=== PATIENT | male | born 1980 | race African-American/Black ===

== ENCOUNTER 2017-02-18 01:18 | Observation (INO) | payer OTHER ==
[2017-02-18 01:40] VITALS: BMI 24.9
--- NOTE | 2017-02-18 01:47 | PDOC ---
History of Present Illness - General Chief Complaint: Bone Injury Stated Complaint: INJURY Time Seen by Provider: 02/18/17 01:39 Exam Limitations: Clinical Condition - History of Present Illness Initial Comments: 02/18/17 02:13 This is a 36 yo male [facility] resident with PMH haemophilus meningitis, obstructive hydrocephalus, congenital quadriplegia, seizure disorder, mental retardation and ideopathic scoliosis who presents today with swelling and deformity to right thigh. [facility] states the patient was receiving incontinence care when it was noticed that his right knee was swollen, erythematous and warm to touch. [facility] denies trauma or falls. Xrays performed at [facility] which showed "acute oblique distal femur fracture" per read of Dr. Kwame Andino outpatient radiologist. He was then transferred here for further evaluation. Past History - Past Medical History Allergies/Adverse Reactions: Allergies Allergy/AdvReac Type Severity Reaction Status Date / Time No Known Allergies Allergy Verified 02/18/17 01:33 Home Medications: Ambulatory Orders Albuterol 0.083% Nebulizer Michelle [Ventolin 0.083% Nebulizer Soln -] 1 neb NEB Q6H PRN 04/25/16 Amlodipine Besylate [Norvasc -] 5 mg GT AM 04/25/16 Clobazam [Onfi -] 10 mg GT BID 04/25/16 Diazepam Rectal Gel [Diastat *Rectal Gel*] 10 mg RC PRN PRN 04/25/16 Diazepam [Valium] 2 mg GT BID 04/25/16 Electrolyte,Oral [Pedialyte -] 60 ml GT BID 04/25/16 Ferrous Sulfate Liquid [Feosol Liquid] 5 ml GT HS 04/25/16 Fexofenadine HCl [Bonnie Allergy] 60 mg GT BID 04/25/16 Fluticasone Prop 0.05% Nasal [Flonase -] 2 spray NS DAILY 04/25/16 Folic Acid - 1 mg GT DAILY 04/25/16 Hydrochlorothiazide 25 mg GT DAILY 04/25/16 Ipratropium 0.02% Nebulizer [Atrovent] 1 neb NEB TID 04/25/16 Lactose-Reduced Food/Fiber [Jevity 1.2 Yo Liquid] 830 ml GT ASDIR 04/25/16 Lamotrigine 75 mg GT 0600 04/25/16 Lamotrigine 100 mg PO 0600,1600,2000 04/25/16 Lamotrigine [Lamictal] 50 mg PO 1600,199904/25/16 Levetiracetam [Keppra] 750 mg GT BID 04/25/16 Methylcellulose (with Sugar) [Citrucel Powder] 1,000 mg GT HS 04/25/16 Metoprolol Tartrate 75 mg GT 1400,199904/25/16 Minocycline HCl 100 mg GT DAILY 04/25/16 Nystatin Powder [Nystop Topical Powder -] 15 gm TP BID 04/25/16 Ranitidine HCl [Heartburn Relief 150] 150 mg GT 0600 04/25/16 Sennosides [Senna -] 1 tab GT BID 04/25/16 Sodium Chloride [Saline Nasal Mist] 2 spr NS 1800 04/25/16 HTN: Yes Seizures: Yes - Surgical History GI Surgery: Yes (peg) Orthopedic Surgery: Yes (metal devices in right hip) - Immunization History Immunization Up to Date: Yes - Psycho/Social/Smoking Cessation Hx Anxiety: No Suicidal Ideation: No Smoking History: Never smoked Have you smoked in the past 12 months: No Information on smoking cessation initiated: No Hx Alcohol Use: No Drug/Substance Use Hx: No Substance Use Type: None Hx Substance Use Treatment: No Review of Systems - Review of Systems Able to Perform ROS?: No (profound MR) *Physical Exam - Vital Signs Last Vital Signs Temp Pulse Resp BP Pulse Ox 97.6 F 62 18 148/94 93 L 02/18/17 01:33 02/18/17 01:33 02/18/17 01:33 02/18/17 01:33 02/18/17 01:33 - Physical Exam General Appearance: No: Apparent Distress HEENT: positive: MICHELLE, Symmetrical, TMs Normal Neck: positive: Trachea midline. negative: Tender Respiratory/Chest: positive: Lungs Clear, Normal Breath Sounds. negative: Respiratory Distress, Accessory Muscle Use Cardiovascular: positive: Regular Rhythm, Regular Rate, S1, S2. negative: Edema , JVD, Murmur Vascular Pulses: Dorsalis-Pedis (R): 2+, Doralis-Pedis (L): 2+ Gastrointestinal/Abdominal: positive: Normal Bowel Sounds, Soft. negative: Tender Musculoskeletal: positive: Normal Inspection. negative: CVA Tenderness Extremity: positive: Normal Capillary Refill, Erythema (right knee extending into right thigh) Heart Score/ECG Review - ECG Intrepretation Rhythm: Regular Rhythm - [place]: Normal - ECG Impressions Normal ECG: Yes ED Treatment Course - LABORATORY CBC & Chemistry Diagram: 02/18/17 04:00 02/18/17 04:00 - RADIOLOGY Radiology Studies Ordered: Category Date Time Status FEMUR-RIGHT [RAD] Stat Radiology 02/18/17 01:45 Ordered KNEE 2 POS-RIGHT [RAD] Stat Radiology 02/18/17 01:45 Ordered Medical Decision Making - Medical Decision Making 02/18/17 02:22 A/P: This is a 36 yo male [facility] resident with PMH haemophilus meningitis, obstructive hydrocephalus, congenital quadriplegia, seizure disorder, mental retardation, right hip repair and ideopathic scoliosis who presents today with swelling and deformity to right thigh. [facility] states the patient was receiving incontinence care when it was noticed that his right knee was swollen , erythematous and warm to touch. [facility] denies trauma or falls. Xrays performed at [facility] which showed "acute oblique distal femur fracture" per read of Dr. Kwame Andino outpatient radiologist. He was then transferred here for further evaluation. Swelling and erythema present to right knee and immediately superior to right knee. Pt is afebrile and VS are stable. Dx- femur fracture vs septic knee - xrays of right femur and knee - CBC, CMP, coags, t&s - EKG - admit 02/18/17 03:27 Distal femur fx noted on xray. -will admit 02/18/17 04:55 Case d/w Dr. Gardner. Will admit to hospitalist for obs. *DC/Admit/Observation/Transfer Diagnosis at time of Disposition: Fracture of right femur Qualifiers: Encounter type: initial encounter Femur location: shaft Fracture type: closed Fracture morphology: oblique Fracture alignment: nondisplaced Qualified Code(s) : S72.334A - Nondisplaced oblique fracture of shaft of right femur, initial encounter for closed fracture - Discharge Dispostion Condition at time of disposition: Guarded Admit: Yes Decision to Admit order Date/Time: 02/18/17 04:57
--- NOTE | 2017-02-18 02:06 | PDOC ---
*Physical Exam - Vital Signs Last Vital Signs Temp Pulse Resp BP Pulse Ox 97.6 F 62 18 148/94 93 L 02/18/17 01:33 02/18/17 01:33 02/18/17 01:33 02/18/17 01:33 02/18/17 01:33 02/21/17 19:44 ED Treatment Course - LABORATORY CBC & Chemistry Diagram: 02/18/17 04:00 02/18/17 09:00 Medical Decision Making - Medical Decision Making 02/18/17 02:06 agree with care from TYLER Nelson *DC/Admit/Observation/Transfer Diagnosis at time of Disposition: Femur fracture, right - Discharge Dispostion Disposition: LONGTERM FACILITY Condition at time of disposition: Improved
[2017-02-18] MEDS ORDERED: morphine CARPU-JECT 2 MG/1 ML DISP.SYRIN IM ONE (04:07)
[2017-02-18 04:24] LABS: BASOPHIL 0.2 % (0-2.0); EOSINOPHIL 2.9 % (0-4.5); MCH 29.2 pg (25.7-33.7); MCHC 33.5 g/dl (32.0-35.9); MEAN CELL VOLUME 87.2 fl (80-96); MEAN PLT VOLUME 8.5 fl (7.5-11.1); NEUTROPHILS 67.2 % (42.8-82.8); PLATELET COUNT 168 K/MM3 (134-434); RDW 14.3 % (11.9-15.9); WHITE BLOOD COUNT 6.5 K/mm3 (4.0-10.0)
[2017-02-18 04:39] LABS: INR 1.08 (0.82-1.09); PROTHROMBIN TIME (PATIENT) 11.9 SEC (9.98-11.88)
[2017-02-18 04:50] LABS: ALBUMIN 3.3 g/dl (3.4-5.0); ANION GAP 9 (8-16); BILIRUBIN,TOTAL 0.6 mg/dL (0.2-1.0); CALCIUM 9.6 mg/dL (8.5-10.1); CO2 33 mmol/L (21-32); CREATININE 0.4 mg/dL (0.7-1.3); GLUCOSE,RANDOM 75 mg/dL (74-106); SGOT/AST 13 U/L (15-37); SGPT/ALT 42 U/L (12-78); TOT PROT 7.4 g/dl (6.4-8.2)
[2017-02-18 04:51] LABS: ALK PHOS 160 U/L (45-117)
[2017-02-18] MEDS ORDERED: morphine CARPU-JECT 4 MG/1 ML DISP.SYRIN ONE (04:53)
--- NOTE | 2017-02-18 05:09 | HP ---
CHIEF COMPLAINT: femur injury PCP: Dr. Huang HISTORY OF PRESENT ILLNESS: 36yo M [facility] resident with PMH of congenital quadriplegia, epilepsy, mental retardation presents with swelling, erythema and warmth to Right thigh. Deformity was discovered during routine care. [facility] ([facility]) performed xrays revealing acute oblique distal femur fx. Pt was brought to ER for further evaluation. [facility] denies trauma or falls. ER course was notable for: (1) morphine sulfate 4mg IM for pain (2) Knee xray, Femur xray, Hip/pelvis xray, CXR all pending (3) Levetiracetam level pending Recent Travel: none PAST MEDICAL HISTORY: congenital quadriplegia mental retardation epilepsy obstructive hydrocephalus haemophilus menigitis idiopathic scoliosis HTN PAST SURGICAL HISTORY: PEG placement Right Hip ORIF Social History: Smoking: none Alcohol: none Drugs: none Family History: non-contributory Allergies No Known Allergies Allergy (Verified 02/18/17 01:33) HOME MEDICATIONS: Home Medications Medication Instructions Recorded Albuterol 0.083% Nebulizer Michelle 1 neb NEB Q6H PRN 04/25/16 [Ventolin 0.083% Nebulizer Soln -] Amlodipine Besylate [Norvasc -] 5 mg GT AM 04/25/16 Clobazam [Onfi -] 10 mg GT BID 04/25/16 Diazepam Rectal Gel [Diastat 10 mg RC PRN PRN 04/25/16 *Rectal Gel*] Diazepam [Valium] 2 mg GT BID 04/25/16 Electrolyte,Oral [Pedialyte -] 60 ml GT BID 04/25/16 Ferrous Sulfate Liquid [Feosol 5 ml GT HS 04/25/16 Liquid] Fexofenadine HCl [Bonnie Allergy] 60 mg GT BID 04/25/16 Fluticasone Prop 0.05% Nasal 2 spray NS DAILY 04/25/16 [Flonase -] Folic Acid - 1 mg GT DAILY 04/25/16 Hydrochlorothiazide 25 mg GT DAILY 04/25/16 Ipratropium 0.02% Nebulizer 1 neb NEB TID 04/25/16 [Atrovent] Lactose-Reduced Food/Fiber [Jevity 830 ml GT ASDIR 04/25/16 1.2 Yo Liquid] Lamotrigine 75 mg GT 0600 04/25/16 Lamotrigine 100 mg PO 0600,1600,199904/25/16 Lamotrigine [Lamictal] 50 mg PO 1600,199904/25/16 Levetiracetam [Keppra] 750 mg GT BID 04/25/16 Methylcellulose (with Sugar) 1,000 mg GT HS 04/25/16 [Citrucel Powder] Metoprolol Tartrate 75 mg GT 1400,199904/25/16 Minocycline HCl 100 mg GT DAILY 04/25/16 Nystatin Powder [Nystop Topical 15 gm TP BID 04/25/16 Powder -] Ranitidine HCl [Heartburn Relief 150 mg GT 0600 04/25/16 150] Sennosides [Senna -] 1 tab GT BID 04/25/16 Sodium Chloride [Saline Nasal Mist] 2 spr NS 1800 04/25/16 REVIEW OF SYSTEMS Could not be assessed 2/2 profound mental retardation. PHYSICAL EXAMINATION Vital Signs - 24 hr 02/18/17 01:33 Temperature 97.6 F Pulse Rate 62 Respiratory 18 Rate Blood Pressure 148/94 O2 Sat by Pulse 93 L Oximetry (%) GENERAL: Awake, alert, in mild distress. HEAD: Normal with no signs of trauma. EYES: Pupils equal, round and reactive to light, extraocular movements intact, sclera anicteric, conjunctiva clear. No lid lag. EARS, NOSE, THROAT: Moist mucous membranes. NECK: Trachea midline, no JVD. LUNGS: Breath sounds equal, clear to auscultation bilaterally. No accessory muscle use. HEART: Regular rate and rhythm, normal S1 and S2 without murmur, rub or gallop. MUSCULOSKELETAL: Contracted in all 4 limbs. Right distal thigh swollen, erythematous, warm. PSYCHIATRIC: Good eye contact. SKIN: Warm, dry, normal turgor, no rashes or lesions noted. Laboratory Results - last 24 hr 02/18/17 02/18/17 02/18/17 04:00 04:00 04:00 WBC 6.5 RBC 4.86 Hgb 14.2 Hct 42.4 MCV 87.2 MCH 29.2 MCHC 33.5 RDW 14.3 Plt Count 168 MPV 8.5 Neutrophils % 67.2 Lymphocytes % 15.6 D Monocytes % 14.1 H Eosinophils % 2.9 Basophils % 0.2 INR 1.08 Sodium 133 L Potassium 3.5 Chloride 91 L Carbon Dioxide 33 H D Anion Gap 9 BUN 10 D Creatinine 0.4 L Creat Clearance w eGFR > 60 Random Glucose 75 D Calcium 9.6 Total Bilirubin 0.6 D AST 13 L D ALT 42 D Alkaline Phosphatase 160 H D Total Protein 7.4 Albumin 3.3 L IMAGING: Hip/Pelvis X-Ray, Chest X-Ray, Knee X-Ray, Femur X-Ray all pending. ASSESSMENT/PLAN: 36yo M [facility] resident with PMH of congenital quadriplegia, mental retardation, seizure disorder admitted to med-surg observation for non- displaced Right distal femur fx. 1) Right distal femur fx - Consult Orthopedic Surgery - Morphine sulfate 2mg IM q4h for pain 2) Epilepsy - cont. home med Clobazam, Diazepam, Keppra, Lamictal - f/u Levetiracetam level 3) HTN - cont. home med Norvasc, Metoprolol, HCTZ 4) FEN - Fluids: D5NS IVF hydration - Electrolytes: hyponatremia, hypochloremia --> cont. to monitor when tube feeding is resumed - Nutrition: hold tube feeding for possible surgical intervention 5) Prophylaxis - Heparin 5,000U SQ q8h for DVT prophylaxis Visit type - Emergency Visit Emergency Visit: Yes Care time: The patient presented to the Emergency Department on the above date and was hospitalized for further evaluation of their emergent condition. - New Patient This patient is new to me today: Yes Date on this admission: 02/18/17 - Critical Care Critical Care patient: No
[2017-02-18] MEDS ORDERED: diazePAM ACUDIAL 5-7.5-10 MG 1 EACH KIT RC PRN (05:14)
[2017-02-18] MEDS ORDERED: ALBUTEROL SO4 0.083% IH SOL 2.5 MG/3 ML VIAL.NEB. NEB PRN (05:14)
[2017-02-18] MEDS ORDERED: morphine CARPU-JECT 4 MG/1 ML DISP.SYRIN IVPUSH PRN (05:15)
--- NOTE | 2017-02-18 05:34 | PN ---
Teaching Attending Note Name of Resident: Yesika Watson ATTENDING PHYSICIAN STATEMENT I saw and evaluated the patient. I reviewed the resident's note and discussed the case with the resident. I agree with the resident's findings and plan as documented. SUBJECTIVE: 36 yo quadriplegic gentleman transferred to the ED from outside facility after it was discovered that he has non-displaced right hip fracture. Resides in senior living/[facility] where it was discovered he had new swelling to his right leg during routine care. Facility denies trauma or falls or other sites of possible fracture. OBJECTIVE: - Vital Signs Temp: 97.6F BP: 148/94 HR: 62 RR: 18 spO2: 93% on RA - Physical Examination General: Alert, seemingly at baseline mental status in mild distress presumably 2/2 pain RLE HEENT: No signs of trauma or lesions of the oropharynx Neck: No JVD or Thyromegaly CV: RRR, S1 and S2 Pulm: CTA anteriorly Abd: Soft, BS + ; No HSM Ext: Edema and discomfort with palpation of RLE ; Contracted upper extremities - Imaging Rt Hip Film reviewed ( Oblique fracture, nondisplaced femur ) CXR Pending - Labs BUN/Cr: 10/0.4 K+ 3.5 ; Na+ 133 H/H: 14.2/42.4 ASSESSMENT Non-displaced Right Hip Fracture - Unclear etiology at this time Hyponatremia 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 Pain management with IV Morphine prn Continue PO meds via G-Tube ; Hold all feeds pending orthopedic eval as above PT/OT evaluation to follow above D5NS IVF hydration ; Monitor and maintain optimal lytes Further imaging deferred to consulting physician Heparin SC DVT Chemoprophylaxis F/U pending imaging to further assess bony structures DISPOSITION Anticipating inpatient admission as patient will likely require >48h inpatient monitoring and management for pain and repair of hip fracture. PT/OT evaluation and SW involvement Update Vaccinations
[2017-02-18] MEDS ORDERED: lamoTRIgine 25 MG TABLET NR SCH ×3 (06:00→16:00)
[2017-02-18] MEDS ORDERED: RANITIDINE HCL 150 MG/10 ML UNIT-DOSE CUP GT SCH (06:15)
[2017-02-18] MEDS ORDERED: morphine CARPU-JECT 4 MG/1 ML DISP.SYRIN IM PRN (06:17)
[2017-02-18] MEDS ORDERED: DEXTROSE 5%-NORMAL SALINE 1,000 ML IV SCH (06:45)
[2017-02-18] MEDS ORDERED: IPRATROPIUM BR 0.02% 0.5 MG/2.5 ML VIAL.NEB. NEB ONE (06:45)
[2017-02-18] MEDS ORDERED: lamoTRIgine 25 MG TABLET ONE (06:45)
[2017-02-18] MEDS ORDERED: RANITIDINE HCL 150 MG TABLET (FP) ONE (06:45)
[2017-02-18] MEDS ORDERED: amLODIPine BESYLATE 5 MG TABLET (FP) GT SCH (07:00)
[2017-02-18] MEDS: lamoTRIgine 100 MG TABLET (FP) GT SCH ×2 (07:05→16:38)
[2017-02-18] MEDS: IPRATROPIUM BR 0.02% 0.5 MG/2.5 ML VIAL.NEB. NEB SCH ×2 (07:05→14:54)
[2017-02-18] MEDS ORDERED: morphine CARPU-JECT 2 MG/1 ML DISP.SYRIN IM PRN (07:18)
[2017-02-18] MEDS ORDERED: oxyCODONE HCL 5 MG TABLET GT PRN (07:30)
--- NOTE | 2017-02-18 08:37 | CON.ORTH ---
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 (mental retardation congenital quadraplegia, seizure disorder, obstructive hydrocephalus) Cardio/Vascular: Yes: HTN Additional Medical History: Mental Retardation, quadraplegia - Alcohol/Substance Use Hx Alcohol Use: No - Smoking History Smoking history: Never smoked Have you smoked in the past 12 months: No - Social History Usual Living Arrangement: Long Term ADL: Support Services History of Recent Travel: No Home Medications - Allergies Allergies/Adverse Reactions: Allergies Allergy/AdvReac Type Severity Reaction Status Date / Time No Known Allergies Allergy Verified 02/18/17 01:33 - Home Medications Home Medications: Ambulatory Orders Albuterol 0.083% Nebulizer Michelle [Ventolin 0.083% Nebulizer Soln -] 1 neb NEB Q6H PRN 04/25/16 Amlodipine Besylate [Norvasc -] 5 mg GT AM 04/25/16 Clobazam [Onfi -] 10 mg GT BID 04/25/16 Diazepam Rectal Gel [Diastat *Rectal Gel*] 10 mg RC PRN PRN 04/25/16 Diazepam [Valium] 2 mg GT BID 04/25/16 Electrolyte,Oral [Pedialyte -] 60 ml GT BID 04/25/16 Ferrous Sulfate Liquid [Feosol Liquid] 5 ml GT HS 04/25/16 Fexofenadine HCl [Obnnie Allergy] 60 mg GT BID 04/25/16 Fluticasone Prop 0.05% Nasal [Flonase -] 2 spray NS DAILY 04/25/16 Folic Acid - 1 mg GT DAILY 04/25/16 Hydrochlorothiazide 25 mg GT DAILY 04/25/16 Ipratropium 0.02% Nebulizer [Atrovent] 1 neb NEB TID 04/25/16 Lactose-Reduced Food/Fiber [Jevity 1.2 Yo Liquid] 830 ml GT ASDIR 04/25/16 Lamotrigine 75 mg GT 0600 04/25/16 Lamotrigine 100 mg PO 0600,1600,199904/25/16 Lamotrigine [Lamictal] 50 mg PO 1600,199904/25/16 Levetiracetam [Keppra] 750 mg GT BID 04/25/16 Methylcellulose (with Sugar) [Citrucel Powder] 1,000 mg GT HS 04/25/16 Metoprolol Tartrate 75 mg GT 1400,2000 04/25/16 Minocycline HCl 100 mg GT DAILY 04/25/16 Nystatin Powder [Nystop Topical Powder -] 15 gm TP BID 04/25/16 Ranitidine HCl [Heartburn Relief 150] 150 mg GT 0600 04/25/16 Sennosides [Senna -] 1 tab GT BID 04/25/16 Sodium Chloride [Saline Nasal Mist] 2 spr NS 1800 04/25/16 Calcium Carbonate/Vitamin D3 [Oystercal-D 500 mg-400 Unit Tb] 1 each PO HS 02/18 Calcium Carbonate/Vitamin D3 [Oystercal-D 500 mg-400 Unit Tb] 2 each PO DAILY Magnesium Hydroxide [Milk of Magnesia -] 15 ml GT BID 02/18/17 Multivitamins [Tab-A-Vit -] 1 tab GT DAILY 02/18/17 Physical Exam for Ortho Vital Signs: Vital Signs Temperature 97.8 F 02/18/17 08:13 Pulse Rate 72 02/18/17 08:13 Respiratory Rate 18 02/18/17 08:13 Blood Pressure 144/90 02/18/17 08:13 O2 Sat by Pulse Oximetry (%) 99 02/18/17 07:10 Labs: INR, PTT INR 1.08 (0.82-1.09) 02/18/17 04:00 - Lower Extremity Knee: Yes: Right, Assymetrical, Pain, Swelling, Tenderness Imaging - Results X-ray: Report Reviewed, Image Reviewed Assessment/Plan 6 yo male half-way resident with PMH haemophilus meningitis, obstructive hydrocephalus, congenital quadriplegia, seizure disorder, mental retardation and ideopathic scoliosis who presents today with swelling and deformity to right thigh. jail states the patient was receiving incontinence care when it was noticed that his right knee was swollen, erythematous and warm to touch. jail denies trauma or falls. Xrays performed at [facility] which showed "acute oblique distal femur fracture" per read of Dr. Kwame Andino outpatient radiologist. He was then transferred here for further evaluation. a/p- right minimally displaced distal femur fx No surgery required knee immobilizer was placed please check for skin breakdown nothing further to do will follow d/w Dr. Vega
--- NOTE | 2017-02-18 09:23 | EKG ---
Test Reason : Blood Pressure : / mmHG Vent. Rate : 063 BPM Atrial Rate : 063 BPM P-R Int : 176 ms QRS Dur : 104 ms QT Int : 422 ms P-R-T Axes : 059 022 029 degrees QTc Int : 431 ms NORMAL SINUS RHYTHM NORMAL ECG MARKED T WAVE ABNORMALITY, CONSIDER ANTERIOR ISCHEMIA Confirmed by JEFF OSULLIVAN MD ([id number]) on 02/18/2017 9:22:36 AM Referred By: Confirmed By:JEFF OSULLIVAN MD
[2017-02-18 09:48] LABS: ANION GAP 7 (8-16); CALCIUM 9.5 mg/dL (8.5-10.1); CO2 35 mmol/L (21-32); CREATININE 0.4 mg/dL (0.7-1.3); GLUCOSE,RANDOM 71 mg/dL (74-106)
[2017-02-18] MEDS ORDERED: FLUTICASONE PROP 0.05% 16 GM NASAL SPRAY NS SCH (10:00)
[2017-02-18] MEDS ORDERED: CHOLECALCIFEROL (VIT D3 ORAL SOLUTION) 400 UNIT/1 ML DROPS GT SCH ×2 (10:00→22:00)
[2017-02-18] MEDS ORDERED: FOLIC ACID 1 MG TABLET (FP) GT SCH (10:00)
[2017-02-18] MEDS ORDERED: cloBAZam 10 MG TABLET PO SCH ×2 (10:00→11:00)
[2017-02-18] MEDS ORDERED: PATIENT'S OWN MEDICATION (NON-FORMULARY) (Calcium Carbonate/Vitamin D3 [Oystercal-D 500 Mg GT SCH ×2 (10:00→22:00)
[2017-02-18] MEDS ORDERED: MULTIVIT-MINERALS 236 ML ML GT SCH (10:00)
[2017-02-18] MEDS ORDERED: FERROUS SO4 300 MG/5 ML ORAL SOLN UNIT DOSE CUPS GT SCH (10:00)
[2017-02-18] MEDS ORDERED: HYDROCHLOROTHIAZIDE 25 MG TABLET (FP) GT SCH (10:00)
[2017-02-18] MEDS ORDERED: LORATADINE 10 MG TABLET GT SCH (10:00)
[2017-02-18] MEDS ORDERED: diazePAM 2 MG TABLET GT SCH ×2 (10:00→18:00)
[2017-02-18] MEDS ORDERED: CALCIUM CARBONATE SUSPENSION - 500 MG/5 ML ML GT SCH ×2 (10:00→22:00)
[2017-02-18] MEDS ORDERED: NYSTATIN POWDER 100,000 UNITS/GM - 15 GM TOPICAL POWDER TP SCH (10:00)
[2017-02-18] MEDS ORDERED: SENNOSIDES 8.8 MG/5 ML BULK BOTTLE GT SCH (10:00)
[2017-02-18] MEDS ORDERED: MAGNESIUM HYDROX 2400MG/30ML ORAL SUSPENSION 30 ML CUP GT SCH (10:00)
[2017-02-18] MEDS ORDERED: PATIENT'S OWN MEDICATION (NON-FORMULARY) (Minocycline Hcl [Minocycline Hcl] 100 MG) GT SCH (10:00)
[2017-02-18] MEDS ORDERED: levETIRAcetam 500 MG/5 ML ORAL SOLUTION (UNIT-DOSE CUPS) GT SCH ×2 (10:00→11:15)
[2017-02-18] MEDS ORDERED: PT OWN MED DRAWER 7, Y5N ONE ×4 (10:09→16:18)
--- NOTE | 2017-02-18 13:37 | PN ---
Teaching Attending Note Name of Resident: Juan R Xiong ATTENDING PHYSICIAN STATEMENT I saw and evaluated the patient. I reviewed the resident's note and discussed the case with the resident. I agree with the resident's findings and plan as documented. SUBJECTIVE: no events over night . not able to obtain a ROS OBJECTIVE: NAD , comfortable and smiling CV : RRR Lungs : CTAB ABd : PEG tube in . no erythema or erosions around it . No TTP , ND , NL BS Ext: R lower thigh with erythema and edema , No TTP . no edema on legs . DP 2+ b/l ASSESSMENT AND PLAN: 36 y/o man with h/o quadriplegia , HTn, Seizure and other medical problems who presented From [place] due to R lower thigh swelling and was found to have R distal femur Fx 1- R distal femur Fx: will investigate further form [facility] if he had any fall in past few days . ? recent seizure - sen by ortho . NO sx - pt has no pain. - immobilizer - need Vit D3 checked ( not available , done as outpt ) 2- h/o Seizure . Meds confirmed with [facility] records . - cont home meds 3- HTN: cont home meds 4- Dispo: will dc back to facility as he has no pain and no surgical intervention to be done.
[2017-02-18] MEDS ORDERED: METOPROLOL TARTRATE 25 MG TABLET (FP) GT SCH (14:00)
[2017-02-18] MEDS ORDERED: HEPARIN NA (PORCINE) 5,000 UNITS/ML 1ML VIAL SQ SCH (14:00)
--- NOTE | 2017-02-18 15:24 | DS ---
Physical Exam: SUBJECTIVE: Patient seen and examined this AM. Smiling, in no acute distress. Nonverbal. OBJECTIVE: Vital Signs Period Temp Pulse Resp BP Sys/Osullivan Pulse Ox Last 24 Hr 97.8 F-97.8 F 65-72 18-20 136-144/82-90 99-99 PHYSICAL EXAM GENERAL: Awake, alert, in mild distress. HEAD: Normal with no signs of trauma. EYES: Pupils equal, round and reactive to light, extraocular movements intact, sclera anicteric, conjunctiva clear. No lid lag. EARS, NOSE, THROAT: Moist mucous membranes. NECK: Trachea midline, no JVD. LUNGS: Breath sounds equal, clear to auscultation bilaterally. No accessory muscle use. HEART: Regular rate and rhythm, normal S1 and S2 without murmur, rub or gallop. MUSCULOSKELETAL: Contracted in all 4 limbs. Right distal thigh tight, swollen. PSYCHIATRIC: Good eye contact. SKIN: Warm, dry, normal turgor, no rashes or lesions noted. LABS Laboratory Results - last 24 hr 02/18/17 09:00 Sodium 136 Potassium 3.6 Chloride 94 L Carbon Dioxide 35 H Anion Gap 7 L BUN 9 Creatinine 0.4 L Random Glucose 71 L Calcium 9.5 HOSPITAL COURSE: Date of Admission:02/18/17 Date of Discharge: 02/18/17 Mr. Dilan Castellano is a 36yo M senior care resident with PMH of congenital quadriplegia, mental retardation, seizure disorder who came into the ER because he was found to have a swollen R leg. X-Rays in the hospital noted a R distal femur fracture. 1) Right distal femur fx - The patient remained very comfortable in the hospital. We consulted Consult Orthopedic Surgery who saw the patient and decided no surgical intervention is necessary. They gave the patient an immobilizer and will follow up with the patient in two weeks. 2) Epilepsy - We reconciled and resume all of the patients home seizure medications. There were no seizures in the hospital For all other chronic problems, we continued all the patient's home medications. The patient is accepted back at [facility], and will be discharged today. Minutes to complete discharge: 55 Discharge Summary Reason For Visit: FEMUR FRACTURE (RIGHT) Current Active Problems Femur fracture, right (Acute) Condition: Improved - Instructions Diet, Activity, Other Instructions: - Continue to take all of your medications - Keep the immobilizer on your leg - Follow with the Orthopedic Surgeon - If you have any serious symptoms please return to the ER - He needs 25 OH Vit D , and TSH checked. Referrals: Chepe Vega MD [Staff Physician] - 2 Weeks Disposition: CUSTODIAL FACILITY - Home Medications Comprehensive Discharge Medication List: Ambulatory Orders Albuterol 0.083% Nebulizer Michelle [Ventolin 0.083% Nebulizer Soln -] 1 neb NEB Q6H PRN 04/25/16 Amlodipine Besylate [Norvasc -] 5 mg GT AM 04/25/16 Clobazam [Onfi -] 10 mg GT BID 04/25/16 Diazepam Rectal Gel [Diastat Rectal Gel -] 10 mg RC PRN PRN 04/25/16 Diazepam [Valium] 2 mg GT BID 04/25/16 Electrolyte,Oral [Pedialyte -] 60 ml GT BID 04/25/16 Ferrous Sulfate Liquid [Feosol Liquid] 5 ml GT HS 04/25/16 Fexofenadine HCl [Bonnie Allergy] 60 mg GT BID 04/25/16 Fluticasone Prop 0.05% Nasal [Flonase -] 2 spray NS DAILY 04/25/16 Folic Acid - 1 mg GT DAILY 04/25/16 Hydrochlorothiazide 25 mg GT DAILY 04/25/16 Ipratropium 0.02% Nebulizer [Atrovent 0.02% Nebulizer -] 1 neb NEB TID 04/25/16 Lactose-Reduced Food/Fiber [Jevity 1.2 Yo Liquid] 830 ml GT ASDIR 04/25/16 Lamotrigine 75 mg GT 0600 04/25/16 Lamotrigine 100 mg PO 0600,1600,199904/25/16 Lamotrigine [Lamictal] 50 mg PO 1600,199904/25/16 Levetiracetam [Keppra] 750 mg GT BID 04/25/16 Methylcellulose (with Sugar) [Citrucel Powder] 1,000 mg GT HS 04/25/16 Metoprolol Tartrate 75 mg GT 1400,199904/25/16 Minocycline HCl 100 mg GT DAILY 04/25/16 Nystatin Powder [Nystop Powder -] 15 gm TP BID 04/25/16 Ranitidine HCl [Heartburn Relief 150] 150 mg GT 0600 04/25/16 Sennosides [Senna -] 1 tab GT BID 04/25/16 Sodium Chloride [Saline Nasal Mist] 2 spr NS 1800 04/25/16 Calcium Carbonate/Vitamin D3 [Oystercal-D 500 mg-400 Unit Tb] 1 each PO HS 02/18 Calcium Carbonate/Vitamin D3 [Oystercal-D 500 mg-400 Unit Tb] 2 each PO DAILY Magnesium Hydroxide [Milk of Magnesia -] 15 ml GT BID 02/18/17 Multivitamins [Multivit ([facility] Formulary)] 1 tab GT DAILY 02/18/17
[2017-02-18 18:00] VITALS: BP 131/78; PULSE 70; TEMP 97.8
[2017-02-18] MEDS ORDERED: SODIUM CHLORIDE NASAL SPRAY 44 ML BOTTLE NS SCH (18:00)
[2017-02-19] MEDS ORDERED: FOLIC ACID 1 MG TABLET (FP) GT SCH (06:00)
[2017-02-19] MEDS ORDERED: lamoTRIgine 25 MG TABLET NR SCH (06:00)
[2017-02-19] MEDS ORDERED: amLODIPine BESYLATE 5 MG TABLET (FP) GT SCH (10:00)
[2017-02-19] MEDS ORDERED: MINOCYCLINE 100 MG GT SCH (10:00)
[2017-02-19] MEDS ORDERED: HYDROCHLOROTHIAZIDE 25 MG TABLET (FP) GT SCH (16:00)
== END 2017-02-18 18:10 ==
LOC: JER 01:18 → JERBED 04:58 → UNDOADMOB 06:01 → J6S 08:09
PROVIDERS: ADMIT Internal Medicine; ATTEND Internal Medicine
PROC: 2W3QX1Z Immobilization of Right Lower Leg using Splint (ICD-10-PCS; principal; 2017-02-18)
PROC: 3E0337Z Introduction of Electrolytic and Water Balance Substance into Peripheral Vein, Percutaneous Approach (ICD-10-PCS; 2017-02-18)
PROC: 3E0F7GC Introduction of Other Therapeutic Substance into Respiratory Tract, Via Natural or Artificial Opening (ICD-10-PCS; 2017-02-18)
DX: S72.334A Nondisplaced oblique fracture of shaft of right femur, initial encounter for closed fracture (principal); F73 Profound intellectual disabilities; G80.8 Other cerebral palsy; G40.909 Epilepsy, unspecified, not intractable, without status epilepticus; G91.1 Obstructive hydrocephalus; B96.3 Hemophilus influenzae [H. influenzae] as the cause of diseases classified elsewhere; M41.20 Other idiopathic scoliosis, site unspecified; E87.1 Hypo-osmolality and hyponatremia; I10 Essential (primary) hypertension; Z93.1 Gastrostomy status; X58.XXXA Exposure to other specified factors, initial encounter; Y93.9 Activity, unspecified; Y92.129 Unspecified place in nursing home as the place of occurrence of the external cause
CPT/HCPCS: 36415; 71010-TC; 72170-TC; 73552-TC-RT; 73560-TC-RT; 80048; 80053; 85025; 85610; 86850; 86900; 86901; 93005; 93010; 94640; 99285-25; G0378; J1644

== ENCOUNTER 2018-07-21 13:56 | Inpatient (IN) | payer OTHER ==
--- NOTE | 2018-07-21 14:29 | PDOC ---
History of Present Illness - General Chief Complaint: SIRS, Suspected/Possible Stated Complaint: BRADYCARDIA Time Seen by Provider: 07/21/18 14:28 Past History - Past Medical History Allergies/Adverse Reactions: Allergies Allergy/AdvReac Type Severity Reaction Status Date / Time No Known Allergies Allergy Verified 07/21/18 14:14 Home Medications: Ambulatory Orders Albuterol 0.083% Nebulizer Michelle [Ventolin 0.083% Nebulizer Soln -] 1 neb NEB Q6H PRN 04/25/16 Amlodipine Besylate [Norvasc -] 5 mg GT AM 04/25/16 Clobazam [Onfi -] 10 mg GT BID 04/25/16 Diazepam Rectal Gel [Diastat Rectal Gel -] 10 mg RC PRN PRN 04/25/16 Diazepam [Valium] 2 mg GT BID 04/25/16 Electrolyte,Oral [Pedialyte -] 60 ml GT BID 04/25/16 Ferrous Sulfate Liquid [Feosol Liquid] 5 ml GT HS 04/25/16 Fexofenadine HCl [Bonnie Allergy] 60 mg GT BID 04/25/16 Fluticasone Prop 0.05% Nasal [Flonase -] 2 spray NS DAILY 04/25/16 Folic Acid - 1 mg GT DAILY 04/25/16 Hydrochlorothiazide 25 mg GT DAILY 04/25/16 Ipratropium 0.02% Nebulizer [Atrovent 0.02% Nebulizer -] 1 neb NEB TID 04/25/16 Lactose-Reduced Food/Fiber [Jevity 1.2 Yo Liquid] 830 ml GT ASDIR 04/25/16 Lamotrigine 75 mg GT 0600 04/25/16 Lamotrigine 100 mg PO 0600,1600,199904/25/16 Lamotrigine [Lamictal] 50 mg PO 1600,199904/25/16 Levetiracetam [Keppra] 750 mg GT BID 04/25/16 Methylcellulose (with Sugar) [Citrucel Powder] 1,000 mg GT HS 04/25/16 Metoprolol Tartrate 75 mg GT 1400,199904/25/16 Minocycline HCl 100 mg GT DAILY 04/25/16 Nystatin Powder [Nystop Powder -] 15 gm TP BID 04/25/16 Ranitidine HCl [Heartburn Relief 150] 150 mg GT 0600 04/25/16 Sennosides [Senna -] 1 tab GT BID 04/25/16 Sodium Chloride [Saline Nasal Mist] 2 spr NS 1800 04/25/16 Calcium Carbonate/Vitamin D3 [Oystercal-D 500 mg-400 Unit Tb] 1 each PO HS 02/18 Calcium Carbonate/Vitamin D3 [Oystercal-D 500 mg-400 Unit Tb] 2 each PO DAILY Magnesium Hydroxide [Milk of Magnesia -] 15 ml GT BID 02/18/17 Multivitamins [Multivit ([facility] Formulary)] 1 tab GT DAILY 02/18/17 COPD: No HTN: Yes Seizures: Yes Other medical history: cp - Surgical History GI Surgery: Yes (peg) Orthopedic Surgery: Yes (metal devices in right hip) - Immunization History Immunization Up to Date: Yes - Suicide/Smoking/Psychosocial Hx Smoking History: Never smoked Have you smoked in the past 12 months: No Information on smoking cessation initiated: No Hx Alcohol Use: No Drug/Substance Use Hx: No Substance Use Type: None Hx Substance Use Treatment: No *Physical Exam - Vital Signs Last Vital Signs Temp Pulse Resp BP Pulse Ox 92.1 F L 47 L 16 112/90 97 07/21/18 14:15 07/21/18 14:15 07/21/18 14:15 07/21/18 14:15 07/21/18 14:15 Moderate Sedation - Procedure Monitoring Vital Signs: Procedure Monitoring Vital Signs Temperature 92.1 F L 07/21/18 14:15 Pulse Rate 47 L 07/21/18 14:15 Respiratory Rate 16 07/21/18 14:15 Blood Pressure 112/90 07/21/18 14:15 O2 Sat by Pulse Oximetry (%) 97 07/21/18 14:15
[2018-07-21] MEDS ORDERED: SODIUM CHLORIDE IV ONE (14:55)
[2018-07-21 15:11] LABS: BASO % 0.3 % (0-2.0); HEMATOCRIT 45.7 % (35.4-49); HEMOGLOBIN 15.7 GM/dL (11.7-16.9); LYMPH % 21.5 % (8-40); MCH 29.4 pg (25.7-33.7); MCHC 34.3 g/dl (32.0-35.9); MEAN CELL VOLUME 85.7 fl (80-96); MEAN PLT VOLUME 8.1 fl (7.5-11.1); MONO % 8.1 % (3.8-10.2); NEUT % 67.1 % (42.8-82.8); PLATELET COUNT 191 K/MM3 (134-434); RBC 5.33 M/mm3 (4.00-5.60); RDW 15.4 % (11.9-15.9); WHITE BLOOD COUNT 3.6 K/mm3 (4.0-10.0)
[2018-07-21 15:15] LABS: VENOUS PC02 53.7 mmHg (38-52); VENOUS PH 7.35 (7.32-7.42); VENOUS PO2 53.6 mmHg (28-48)
[2018-07-21 15:21] LABS: INR 1.04 (0.83-1.09); PROTHROMBIN TIME (PATIENT) 12.3 SEC (9.7-13.0)
[2018-07-21 15:24] LABS: ACTIVATED PTT 45.8 SECONDS (25.2-36.5)
[2018-07-21 15:41] LABS: ALBUMIN 3.4 g/dl (3.4-5.0); ALK PHOS 192 U/L (45-117); ANION GAP 6 MMOL/L (8-16); BILIRUBIN,TOTAL 0.2 mg/dL (0.2-1); BLOOD UREA NITROGEN 10 mg/dL (7-18); CALCIUM 9.6 mg/dL (8.5-10.1); CHLORIDE 99 mmol/L (98-107); CO2 31 mmol/L (21-32); CREATININE 0.4 mg/dL (0.55-1.3); GLUCOSE,RANDOM 128 mg/dL (74-106); POTASSIUM 4.2 mmol/L (3.5-5.1); SGOT/AST 109 U/L (15-37); SGPT/ALT 249 U/L (13-61); SODIUM 136 mmol/L (136-145)
--- NOTE | 2018-07-21 15:46 | PDOC ---
Attending Attestation - Resident Resident Name: Bird Vásquez - ED Attending Attestation I have performed the following: I have examined & evaluated the patient, The case was reviewed & discussed with the resident, I agree w/resident's findings & plan, Exceptions are as noted
[2018-07-21 16:22] LABS: URINE APPEARANCE CLEAR; URINE BILIRUBIN NEGATIVE (<2.0 mg/dL); URINE COLOR LTYELLOW; URINE GLUCOSE (UA) NEGATIVE (NEGATIVE); URINE KETONE NEGATIVE (NEGATIVE); URINE LEUK ESTERASE NEGATIVE (NEGATIVE); URINE NITRITE NEGATIVE (NEGATIVE); URINE PROTEIN NEGATIVE (NEGATIVE); URINE UROBILINOGEN NEGATIVE mg/dL (0.2-1.0)
[2018-07-21] MEDS ORDERED: PIPERACILLIN/TAZOB 4.5 GM 4.5 GM in DEXTROSE 5%-WATER - 100 ML IVPB ONE (16:24)
[2018-07-21] MEDS ORDERED: DEXTROSE 5% IVPB ONE ×2 (16:24→16:32)
[2018-07-21] MEDS ORDERED: VANCOMYCIN IVPB ONE (16:24)
[2018-07-21] MEDS ORDERED: WATER IVPB ONE ×2 (16:24→16:32)
[2018-07-21] MEDS ORDERED: CEFTRIAXONE 2,000 MG in DEXTROSE 5%-WATER - 50 ML IVPB ONE (16:31)
[2018-07-21] MEDS ORDERED: ACYCLOVIR IVPB ONE (16:32)
[2018-07-21] MEDS ORDERED: AMPICILLIN - 2 GM in SODIUM CHLORIDE 100 ML IVPB ONE (16:33)
[2018-07-21] MEDS ORDERED: DEXAMETHASONE SOD PHOSPHATE 20 MG/5 ML VIAL IVPB ONE (16:34)
[2018-07-21] MEDS ORDERED: CEFTRIAXONE 2 GM/100 ML BAG IVPB ONE (17:17)
[2018-07-21] MEDS ORDERED: DEXAMETHASONE SOD PHOSPHATE 10 MG/1 ML VIAL ONE (17:18)
[2018-07-21] MEDS ORDERED: VANCOMYCIN 1,000 MG in DEXTROSE 5%-WATER - 250 ML IVPB ONE (17:29)
--- NOTE | 2018-07-21 17:57 | PDOC ---
Attending Attestation - Resident Resident Name: BishopBird - ED Attending Attestation I have performed the following: I have examined & evaluated the patient, The case was reviewed & discussed with the resident, I agree w/resident's findings & plan, Exceptions are as noted - HPI HPI: 07/21/18 17:57 37 M with h/o congenital quadriplegia, epilepsy, mental retardation, presenting to ED from [facility] for congestion and possible upper airway infection. Per [facility] staff, pt has been having increased secretions. No fevers noted at [facility]. Pt is non-verbal at baseline, unable to contribute additional history. In ED, pt was noted to be hypothermic, bradycardic, and hypotensive. - Physicial Exam PE: 07/21/18 17:59 "GENERAL: Awake, alert EYES: PERRLA, clear conjunctiva NOSE: Nose is clear without discharge EARS: EACs and TMs are normal THROAT: Moist mucosa, oropharynx is clear without erythema or exudates, NECK: Supple, no adenopathy, no meningismus CHEST: Lungs are clear without crackles, or wheezes HEART: Regular rhythm, normal S1 and S2, no murmurs ABDOMEN: Soft and nontender with normal bowel sounds, no organomegaly, no mass, no rebound, no guarding EXTREMITIES: Normal NEURO: normal cranial nerves, normal tone SKIN: Unremarkable, no rash, no swelling, no bruising, no signs of injury - Critical Care Time Total Critical Care Time: 60 Critical Care Statement: The care of this patient involved high complexity decision making to prevent further life threatening deterioration of the patient 's condition and/or to evaluate & treat vital organ system(s) failure or risk of failure. - Medical Decision Making 07/21/18 17:59 37 M sent from [facility] for increased secretions. Pt hypothermic, bradycardic, and hypotensive in ED. Given hypothermia and hypotension, will evaluate for sepsis. Bradycardia suspected to be 2/2 beta samira use, masking tachycardia. - CXR and UA obtained with no obvious infectious source - LP performed to r/o meningitis - Covered empirically with vanc/ceft/amp/acyclovir, and steroids given - Active external rewarming with sherry hugger 07/21/18 20:57 LP unremarkable Pt with increased secretions and O2 requirement in ED While in ED, pt had single 1 minute long seizure that broke spontaneously Given increasing O2 requirements and seizure, will admit to ICU for potential need for airway management Discussed with ICU team, pt accepted to ICU by Dr. Benton
--- NOTE | 2018-07-21 17:57 | PDOC ---
History of Present Illness - General Chief Complaint: SIRS, Suspected/Possible Stated Complaint: BRADYCARDIA Time Seen by Provider: 07/21/18 14:28 History Source: [facility] Records, Old Records, Other Exam Limitations: Other - History of Present Illness Initial Comments: HPI: 37 y/o male [facility]. Interview technically limited as pt has profound MR and is nonverbal at baseline. [facility] staff member at bedside but is unfamiliar with acute HPI. Transfer paperwork indicates pt has upper airway congestion with increased use of asthma medication and has become lethargic with bradycardia. PCP: Dr. 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) Past History - Past Medical History Allergies/Adverse Reactions: Allergies Allergy/AdvReac Type Severity Reaction Status Date / Time No Known Allergies Allergy Verified 07/21/18 14:14 Home Medications: Ambulatory Orders Acetaminophen 487.5 mg GT Q4HWA PRN 07/21/18 Amlodipine Besylate [Norvasc -] 5 mg GT DAILY 07/21/18 Ascorbate Calcium [Vitamin C] 500 mg GT BID 07/21/18 Bisacodyl Suppository [Dulcolax Suppository -] 10 mg RC ASDIR 07/21/18 Calcium 250Mg/Vit-D 125 Units [Oscal 250 mg+D -] 1 tab GT HS 07/21/18 Calcium 250Mg/Vit-D 125 Units [Oscal 250 mg+D -] 2 combo GT DAILY 07/21/18 Clobazam [Onfi -] 10 mg GT BID 07/21/18 Diazepam Rectal Gel [Diastat *Rectal Gel*] 10 mg RC PRN 07/21/18 Diazepam [Valium] 2 mg GT BID 07/21/18 Ferrous Sulfate 220 mg GT HS 07/21/18 Folic Acid 1 mg GT DAILY 07/21/18 Hydrochlorothiazide [Hctz -] 25 mg PO DAILY 07/21/18 Ipratropium Agar [Atrovent Hfa] 2 spray IN BID 07/21/18 Lamotrigine [Lamictal] 150 mg GT HS 07/21/18 Lamotrigine [Lamictal] 175 mg GT BID 07/21/18 Levetiracetam [Keppra] 250 mg GT BID 07/21/18 Loratadine 10 mg GT DAILY 07/21/18 Magnesium Hydrox 2400MG/30Ml [Milk of Magnesia -] 30 ml GT DAILY 07/21/18 Metoprolol Tartrate 75 mg GT BID 07/21/18 Minocycline HCl 100 mg GT DAILY 07/21/18 Mometasone Furoate [Asmanex 220Mcg -] 2 inh IH DAILY 07/21/18 Multivitamin/Iron/Folic Acid [Centrum Adults Tablet] 1 each GT DAILY 07/21/18 Pantoprazole Sodium [Protonix -] 40 mg GT DAILY 07/21/18 Polyethylene Glycol 3350 [Miralax (For Daily Use) -] 17 gm GT DAILY 07/21/18 Sennosides [Senna -] 1 tab GT BID 07/21/18 Simethicone 80 mg GT QID 07/21/18 Sodium Phosphate,Peñuelas-Dibasic [Fleet Enema] 133 ml RC ASDIR 07/21/18 Talc/Cellulos/Chloroxy/Aldioxa [Zeasorb Powder] 71 gm TP QID 07/21/18 COPD: No HTN: Yes Seizures: Yes Other medical history: cp - Surgical History GI Surgery: Yes (peg) Orthopedic Surgery: Yes (metal devices in right hip) - Immunization History Immunization Up to Date: Yes - Suicide/Smoking/Psychosocial Hx Smoking History: Never smoked Have you smoked in the past 12 months: No Information on smoking cessation initiated: No Hx Alcohol Use: No Drug/Substance Use Hx: No Substance Use Type: None Hx Substance Use Treatment: No Review of Systems - Review of Systems Able to Perform ROS?: No (Pt nonverbal at baseline) *Physical Exam - Vital Signs Last Vital Signs Temp Pulse Resp BP Pulse Ox 95.9 F L 63 12 89/53 L 96 07/21/18 17:25 07/21/18 16:44 07/21/18 16:44 07/21/18 16:44 07/21/18 16:44 - Physical Exam Comments: Constitutional: Thin adult male in no acute distress or obvious discomfort. Found semi-fowlers on hospital bed. Alert and oriented x4. Breathing spontaneously. Head: Normocephalic. No obvious external signs of trauma. No Battles sign or periorbital bruising. Eyes: Pupils 3mm and PERRL bilaterally. Would not open eyes. Lid held open and pt tracked pen light. EOMI. Sclerae white. Conjunctiva moist and not injected. EARS: External auditory canals and tympanic membranes clear. Hearing grossly intact. NOSE: No nasal discharge. THROAT: Macroglossia, which limited view of posterior oropharynx. Oral cavity and pharynx without inflammation, swelling, exudate, or lesions. Teeth and gingiva in poor general condition. Neck: Supple, trachea is midline. Cardiovascular: Bradycardic rate and regular rhythm. No murmur, rubs, clicks, or gallops. Peripheral pulses: Radial pulses full. Respiratory: Breathing unlabored. Equal chest rise and fall. Clear to auscultation bilaterally. No stridor, no wheezing, no rhonchi. Gastrointestinal: abdomen is soft, non-tender, non-distended. Merritt Button in place in upper left quadrant; site old appearing without discharge or erythema. Neuro: Would not open eyes or withdrawal from painful stimuli. Would not follow commands. Skin/MSK: Warm, dry, and intact. No bruising, rashes, or other lesions. Upper and lower extremities contracted. MALE GENITALIA: No rash. Diaper in place. Moderate Sedation - Procedure Monitoring Vital Signs: Procedure Monitoring Vital Signs Temperature 95.9 F L 07/21/18 17:25 Pulse Rate 63 07/21/18 16:44 Respiratory Rate 12 07/21/18 16:44 Blood Pressure 89/53 L 07/21/18 16:44 O2 Sat by Pulse Oximetry (%) 96 07/21/18 16:44 ED Treatment Course - LABORATORY CBC & Chemistry Diagram: 07/21/18 14:51 07/21/18 14:51 - ADDITIONAL ORDERS Additional order review: Laboratory Results 07/21/18 07/21/18 07/21/18 15:42 14:51 14:51 PT with INR INR PTT (Actin FS) VBG pH POC VBG pCO2 POC VBG pO2 Mixed VBG HCO3 Sodium 136 Potassium 4.2 Chloride 99 Carbon Dioxide 31 Anion Gap 6 L BUN 10 Creatinine 0.4 L Creat Clearance w eGFR > 60 Random Glucose 128 H Lactic Acid 1.8 Calcium 9.6 Total Bilirubin 0.2 AST 109 H ALT 249 H Alkaline Phosphatase 192 H Troponin I < 0.02 Total Protein 8.0 Albumin 3.4 Urine Color Ltyellow Urine Appearance Clear Urine pH 8.0 Ur Specific [place] 1.008 L Urine Protein Negative Urine Glucose (UA) Negative Urine Ketones Negative Urine Blood Negative Urine Nitrite Negative Urine Bilirubin Negative Urine Urobilinogen Negative Ur Leukocyte Esterase Negative 07/21/18 07/21/18 14:51 14:51 PT with INR 12.30 INR 1.04 PTT (Actin FS) 45.8 H VBG pH 7.35 POC VBG pCO2 53.7 H POC VBG pO2 53.6 H Mixed VBG HCO3 28.6 H Sodium Potassium Chloride Carbon Dioxide Anion Gap BUN Creatinine Creat Clearance w eGFR Random Glucose Lactic Acid Calcium Total Bilirubin AST ALT Alkaline Phosphatase Troponin I Total Protein Albumin Urine Color Urine Appearance Urine pH Ur Specific [place] Urine Protein Urine Glucose (UA) Urine Ketones Urine Blood Urine Nitrite Urine Bilirubin Urine Urobilinogen Ur Leukocyte Esterase 07/21/18 14:51 RBC 5.33 MCV 85.7 MCHC 34.3 RDW 15.4 MPV 8.1 Neutrophils % 67.1 Lymphocytes % 21.5 D Monocytes % 8.1 Eosinophils % 3.0 Basophils % 0.3 - RADIOLOGY Radiology Studies Ordered: Category Date Time Status CHEST X-RAY PORTABLE* [RAD] Stat Radiology 07/21/18 14:55 Taken - Medications Given in the ED: ED Medications Discontinued Medications Generic Name Dose Route Start Last Admin Trade Name Freq PRN Reason Stop Dose Admin Sodium Chloride 1,374 mls @ 687 mls/hr 07/21/18 14:55 07/21/18 16:01 Normal Saline - 30 ml/kg infuse over 2 hr (1374 ml) 07/21/18 16:54 687 mls/ hr IV Administration ONCE ONE Medical Decision Making - Medical Decision Making *Reviewed vital signs, nursing notes, and prior visit documentation (if available). 37 y/o male from [place] with MR. Bradycardic, hypothermic, and unresponsive on arrival. Physical exam as described above, no localizing features. ED Sepsis order set initiated. Pt placed on Forced-air Patient Warming device. CBC revealed leukopenia without neutropenia, concern for possible infectious cause, no trend of similar in prior records. UA unremarkable for pyuria, nitrites, or leukocyte esterase. Urine culture pending. Low suspicion for urosepsis. CXR unremarkable for consolidation or blunt of costophrenic angles per ED wet read. Radiology report pending. Low suspicion for pneumonia. CMP unremarkable for electrolyte derangement. BUN and Cr at baseline. eGFR >60. LFTs elevated but below trend previously noted in [facility]. Unsure of etiology. T. Bili not elevated. Coags within normal limits. VBG unrevealed acidosis or alkalosis. CT of Head revealed no acute intracranial pathology. Extensive bilateral frontal encephalomalacia. No prior CT for comparison but suspect likely chronic. Pt started on ceftriaxone, zosyn, ampicillin, acyclovir, and decadron for broad spectrum antibiotics including meningitis coverage for atypicals and antiviral given pts limited exam, HPI, and healthcare exposures. 18:[address] Patterson. Verbally appraised of the pts HPI, ED course, and current plan of management. Requested consultation with ICU service. 18:16 Telephone consultation with resident Dr. Mills of ICU service. Verbally appraised of the pts HPI, ED course, and current plan of management. Will evaluate pt. Pt signed out to resident Dr. Hoffman after she was verbally appraised of the pt s HPI, current ED course, and plan of management. Will follow up on pending CSF gram stain, CSF glucose, and rapid influenza test. Will follow up on admission level of care from internal medicine resident. *DC/Admit/Observation/Transfer Diagnosis at time of Disposition: Bradycardia, SIRS (systemic inflammatory response syndrome) Hypotension Qualifiers: Hypotension type: unspecified hypotension type Qualified Code(s): I95.9 - Hypotension, unspecified Hypothermia Qualifiers: Encounter type: initial encounter Qualified Code(s): T68.XXXA - Hypothermia, initial encounter - Discharge Dispostion Condition at time of disposition: Stable Decision to Admit order: Yes - Referrals - Patient Instructions - Post Discharge Activity
[2018-07-21 18:25] LABS: CSF APPEARANCE CLEAR; CSF COLOR COLORLESS; CSF WBC 7
[2018-07-21 18:29] LABS: CSF APPEARANCE CLEAR; CSF COLOR COLORLESS; CSF WBC 2
--- NOTE | 2018-07-21 19:22 | HP ---
CHIEF COMPLAINT: upper respiratory congestion PCP: Zaire Shane HISTORY OF PRESENT ILLNESS: 37 yo Male with PMH of congenital quadriplegia, epilepsy, MR admitted from [facility] [place] after being noticed with more congestion than normal with some bradycardia, hypotension and hypothermia. Paperwork sent with patient indicates he was requiring increased use of his asthma medication and was more lethargic than normal with some bradycardia. Pt is nonverbal though supposedly at baseline will interact some with some babbling. ER course was notable for: (1) LP performed, r/o meningitis (2) CXR unremarkable (3) NS Sepsis protochol, Ampicillin, Acyclovir, Zosyn Recent Travel: none PAST MEDICAL HISTORY: As above PAST SURGICAL HISTORY: Right Hip ORIF Rafal Button Social History: Smoking: none Alcohol: none Drugs: none Family History: Allergies No Known Allergies Allergy (Verified 07/21/18 14:14) HOME MEDICATIONS: REVIEW OF SYSTEMS Unobtainable PHYSICAL EXAMINATION Vital Signs - 24 hr 07/21/18 07/21/18 07/21/18 14:15 14:35 15:25 Temperature 92.1 F L 93.0 F L Pulse Rate 47 L Pulse Rate [ Apical] Respiratory 16 Rate Blood Pressure 112/90 Blood Pressure [Right Arm] O2 Sat by Pulse 97 96 Oximetry (%) 07/21/18 07/21/18 07/21/18 16:19 16:44 17:25 Temperature 95.9 F L Pulse Rate Pulse Rate [ 64 63 Apical] Respiratory 18 12 Rate Blood Pressure Blood Pressure 80/52 L 89/53 L [Right Arm] O2 Sat by Pulse 96 96 Oximetry (%) GENERAL: Awake, seems alert HEAD: Microcephalic, atraumatic. EYES: PERRL, no scleral icterus EARS, NOSE, THROAT: oropharynx clear without exudates. Moist mucous membranes. NECK: supple without lymphadenopathy LUNGS: Poor inspiratory effort, course breath sounds HEART: Regular rate and rhythm, normal S1 and S2 without murmur ABDOMEN: Soft, nontender to palpation, normoactive bowel sounds, rafal cap in place without erythema or drainage MUSCULOSKELETAL: Contracted Extremities EXTREMITIES: 2+ pulses, warm, well-perfused. SKIN: Warm, dry, no rashes or lesions noted anywhere Laboratory Results - last 24 hr 07/21/18 07/21/18 07/21/18 14:51 14:51 14:51 WBC 3.6 L RBC 5.33 Hgb 15.7 Hct 45.7 MCV 85.7 MCH 29.4 MCHC 34.3 RDW 15.4 Plt Count 191 MPV 8.1 Absolute Neuts (auto) 2.4 Neutrophils % 67.1 Lymphocytes % 21.5 D Monocytes % 8.1 Eosinophils % 3.0 Basophils % 0.3 Nucleated RBC % 0 PT with INR 12.30 INR 1.04 PTT (Actin FS) 45.8 H VBG pH 7.35 POC VBG pCO2 53.7 H POC VBG pO2 53.6 H Mixed VBG HCO3 28.6 H Sodium Potassium Chloride Carbon Dioxide Anion Gap BUN Creatinine Creat Clearance w eGFR Random Glucose Lactic Acid Calcium Total Bilirubin AST ALT Alkaline Phosphatase Troponin I Total Protein Albumin Urine Color Urine Appearance Urine pH Ur Specific [place] Urine Protein Urine Glucose (UA) Urine Ketones Urine Blood Urine Nitrite Urine Bilirubin Urine Urobilinogen Ur Leukocyte Esterase CSF Appearance CSF Color CSF WBC CSF RBC CSF Neutrophils CSF Lymphocytes CSF Eosinophils CSF Basophils CSF Macrophages CSF Plasma Cells CSF Diff Comment CSF Comment CSF Glucose CSF Total Protein Blood Type Antibody Screen 07/21/18 07/21/18 07/21/18 14:51 14:51 15:42 WBC RBC Hgb Hct MCV MCH MCHC RDW Plt Count MPV Absolute Neuts (auto) Neutrophils % Lymphocytes % Monocytes % Eosinophils % Basophils % Nucleated RBC % PT with INR INR PTT (Actin FS) VBG pH POC VBG pCO2 POC VBG pO2 Mixed VBG HCO3 Sodium 136 Potassium 4.2 Chloride 99 Carbon Dioxide 31 Anion Gap 6 L BUN 10 Creatinine 0.4 L Creat Clearance w eGFR > 60 Random Glucose 128 H Lactic Acid 1.8 Calcium 9.6 Total Bilirubin 0.2 AST 109 H ALT 249 H Alkaline Phosphatase 192 H Troponin I < 0.02 Total Protein 8.0 Albumin 3.4 Urine Color Ltyellow Urine Appearance Clear Urine pH 8.0 Ur Specific [place] 1.008 L Urine Protein Negative Urine Glucose (UA) Negative Urine Ketones Negative Urine Blood Negative Urine Nitrite Negative Urine Bilirubin Negative Urine Urobilinogen Negative Ur Leukocyte Esterase Negative CSF Appearance CSF Color CSF WBC CSF RBC CSF Neutrophils CSF Lymphocytes CSF Eosinophils CSF Basophils CSF Macrophages CSF Plasma Cells CSF Diff Comment CSF Comment CSF Glucose CSF Total Protein Blood Type Antibody Screen 07/21/18 07/21/18 07/21/18 17:31 17:31 17:41 WBC RBC Hgb Hct MCV MCH MCHC RDW Plt Count MPV Absolute Neuts (auto) Neutrophils % Lymphocytes % Monocytes % Eosinophils % Basophils % Nucleated RBC % PT with INR INR PTT (Actin FS) VBG pH POC VBG pCO2 POC VBG pO2 Mixed VBG HCO3 Sodium Potassium Chloride Carbon Dioxide Anion Gap BUN Creatinine Creat Clearance w eGFR Random Glucose Lactic Acid Calcium Total Bilirubin AST ALT Alkaline Phosphatase Troponin I Total Protein Albumin Urine Color Urine Appearance Urine pH Ur Specific [place] Urine Protein Urine Glucose (UA) Urine Ketones Urine Blood Urine Nitrite Urine Bilirubin Urine Urobilinogen Ur Leukocyte Esterase CSF Appearance Clear CSF Color Colorless CSF WBC 7 CSF RBC 300 CSF Neutrophils No Result Required. CSF Lymphocytes No Result Required. CSF Eosinophils No Result Required. CSF Basophils No Result Required. CSF Macrophages No Result Required. CSF Plasma Cells No Result Required. CSF Diff Comment No Result Required. CSF Comment Tube #1 CSF Glucose Cancelled CSF Total Protein No Result Required. Cancelled Blood Type Cancelled Antibody Screen Cancelled 07/21/18 17:41 WBC RBC Hgb Hct MCV MCH MCHC RDW Plt Count MPV Absolute Neuts (auto) Neutrophils % Lymphocytes % Monocytes % Eosinophils % Basophils % Nucleated RBC % PT with INR INR PTT (Actin FS) VBG pH POC VBG pCO2 POC VBG pO2 Mixed VBG HCO3 Sodium Potassium Chloride Carbon Dioxide Anion Gap BUN Creatinine Creat Clearance w eGFR Random Glucose Lactic Acid Calcium Total Bilirubin AST ALT Alkaline Phosphatase Troponin I Total Protein Albumin Urine Color Urine Appearance Urine pH Ur Specific [place] Urine Protein Urine Glucose (UA) Urine Ketones Urine Blood Urine Nitrite Urine Bilirubin Urine Urobilinogen Ur Leukocyte Esterase CSF Appearance Clear CSF Color Colorless CSF WBC 2 CSF RBC 10 CSF Neutrophils No Result Required. CSF Lymphocytes No Result Required. CSF Eosinophils No Result Required. CSF Basophils No Result Required. CSF Macrophages No Result Required. CSF Plasma Cells No Result Required. CSF Diff Comment No Result Required. CSF Comment Tube#4 CSF Glucose No Result Required. CSF Total Protein No Result Required. Blood Type Antibody Screen ASSESSMENT/PLAN: 37 yo Male with PMH of congenital quadriplegia, epilepsy, MR admitted from [facility] [place] after being noticed with more congestion than normal with some bradycardia, hypotension and hypothermia SIRS with source currently unknown, likely respiratory in nature -Congestion and course breath sounds points towards respiratory source -Hypotensive, Hypothermic, some improvement with fluids and external warming blanket -Currently requiring nonrebreather saturating 94% -UA negative, CSF studies unremarkable, cultures pending, blood c/s pending -IV Zosyn/Azythromycin -Chest CT with right middle lobe consolidation, bibasilar infiltrate, and mucus seen in trachea and upper airway -Viral PCR -Urine legionella/pneumo antigens -LR @ 100 cc/hr -Hold feeds overnight with possible aspiration Epilepsy -Continue home antiseizure medications -Lamictal/Keppra/Valium -Diastat PRN -Seizure like episode in ED -Will give home meds with IV dose 500 mg Keppra -Case discussed with neurology, recommended increasing Keppra to 500 mg BID Transaminitis -Has been worked up in the past but above baseline -RUQ US with cholelithiasis but no signs of cholecystitis -Trend CMP DVT Prophylaxis -Lovenox 40 mg SQ Daily FEN -Fluids: LR @ 100 cc/hr -Electrolytes: No electrolyte abnormalities, CMP in AM -Nutrition: Hold feeds Disposition Telemetry Visit type - Emergency Visit Emergency Visit: Yes ED Registration Date: 07/21/18 Care time: The patient presented to the Emergency Department on the above date and was hospitalized for further evaluation of their emergent condition. - New Patient This patient is new to me today: Yes Date on this admission: 07/22/18 - Critical Care Critical Care patient: Yes Total Critical Care Time (in minutes): 40 Critical Care Statement: The care of this patient involved high complexity decision making to prevent further life threatening deterioration of the patient 's condition and/or to evaluate & treat vital organ system(s) failure or risk of failure.
[2018-07-21 19:29] LABS: BF GLUCOSE (CSF ONLY) 58 mg/dL (40-70)
[2018-07-21] MEDS ORDERED: AMPICILLIN SODIUM 2 GM VIAL ONE (19:38)
[2018-07-21] MEDS ORDERED: VANCOMYCIN 1 GRAM (PRE-DOCKED) 1,000 MG/250 ML BAG IVPB ONE (19:39)
--- NOTE | 2018-07-21 20:21 | PN ---
Teaching Attending Note Name of Resident: Cristian Torres ATTENDING PHYSICIAN STATEMENT I saw and evaluated the patient. I reviewed the resident's note and discussed the case with the resident. I agree with the resident's findings and plan as documented. SUBJECTIVE: Seen and examined; please see resident note for further historical details. Brought in from [facility] found to be hypotensive, hypothermic, bradycardic. Cannot provide history and aide with him is unfamiliar with the case. In the ER he recieved broad spectrum abx and the sepsis protocol. LP was done and meninigitis was effectively ruled out. He is hemodynamically improved after fluids. Doesn't require O2 at baseline but is now. Has history of chronically elevated LFTs as documented in previous notes; reflected in today 's labs. He was noted to have an apparent breakthrough seizure this PM after not getting todays medications. 10 sys ROS done and negative aside from HPI PMH and PSH reviewed FH asked and noncontributory Socially is a resident of [facility]; [facility]. OBJECTIVE: VS, labs, imaging reviewed NAD, awake and alert, nonverbal, tracks RRR s1/2 no mgr Scattered crackles, apparent sym exp NT ND +BS Labs with slight leukopenia; chemistry unremarkable; chronically elevated LFTs CT chest pending ASSESSMENT AND PLAN: Presents from [facility] with hypotension and bradycardia now requiring 2L O2 1) Sepsis -Source unclear but would suspect pulmonary (if he is dehydrated potential PNA may not show up); though it has been worked up in the past want to ensure no GI involvement either. -Checking viral PCR, sputum and blood cultures, urine Ags. Checking CT chest and RUQ US. Monitor on telemetry given the improvement in his VS -IV Zosyn and IV azithromycin -He has low WBC and was hypothermic -UA negative, no meningeal signs and negative LP 2) Hypotension/Hypothermia/Bradycardia -Improved with warming and treatment of sepsis -Monitor on tele 3) History of developmental delay with resulting dysphagia, functional quadraparesis -Unchanged from baseline; resume feeds in the AM 4) Elevated LFTs -Noted in the past; monitor; checking RUQ US. Previous events noted FENA -LR@100 -PRN replete -Resume feeds in AM -Bedrest at baseline Full Code
[2018-07-21] MEDS ORDERED: ONDANSETRON 4 MG/2 ML VIAL ONE (20:27)
[2018-07-21] MEDS ORDERED: PANTOPRAZOLE SODIUM 40 MG VIAL ONE (20:28)
[2018-07-21] MEDS ORDERED: SODIUM CHLORIDE 1,000 ML IV SCH (20:45)
--- NOTE | 2018-07-21 21:07 | CONSULT ---
Consultation: REQUESTING PROVIDER: Dr. Bello CONSULT REQUEST: We have been asked to medically evaluate this patient for increasing O2 requirements in setting of likely sepsis HISTORY OF PRESENT ILLNESS: History per chart The pt is a 37M w/ a history of seizure d/o, developmental delay, functional quadriplegia who presented from [facility] 08/12 increased congestion with associated bradycardia, hypotension, and hypothermia. 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 Patient unable to provide history /2 being non-verbal REVIEW OF SYSTEMS: [facility] 2/ medical condition PHYSICAL EXAMINATION Vital Signs Period Temp Pulse Resp BP Sys/Osullivan Pulse Ox Last 24 Hr 92.1 F-97.5 F 47-97 12-20 80-112/52-90 94-100 GENERAL: Awake, arousable to verbal stimuli, unable to assess orientation, non- verbal HEAD: Microcephalic, atraumatic EYES: PERRL, no scleral icterus EARS, NOSE, THROAT: oropharynx clear without exudates LUNGS: course breath sounds diffusely b/l, no increased WOB HEART: Regular rate and rhythm, normal S1 and S2 w/o murmur appreciated ABDOMEN: Soft, NTTP, non-distended, normoactive bowel sounds, Merritt Cap in place without surrounding erythema or leak MUSCULOSKELETAL: Contracted BUE/BLE, 2+ pulses, warm NEURO: does not follow commands, not verbal, withdraws to pain (baseline) SKIN: Warm, dry ASSESSMENT/PLAN: The pt is a 37M w/ a history of seizure d/o, developmental delay, functional quadriplegia who presented from [facility] 08/12 increased congestion with associated bradycardia, hypotension, and hypothermia. The patient was admitted to the ICU for increasing O2 requirements in the ED. Neuro Seizure d/o -Patient restarted on home regimen -Plan for Keppra 500mg IV BID per Neurology Developmental delay -At baseline CV Hypotension -Improving w/ IVF -Hold home anti-hypertensives Bradycardia -Improving PULM Acute respiratory failure -Saturating well on non-rebreather -Cont. supplemental O2, wean as tolerated -Improving Likely PNA -per below GI Nutrition -Merritt Button in place (06/23/2009) -Will continue TF in AM -Bowel regimen restarted Transaminitis -RUQ U/S pending IVF -LR @100 HEME DVT ppx -Lvx 40mg SQ daily ID Sepsis -Leukopenia, hypothermia on arrival --Hypothermia improving -UA w/o evidence of UTI -LP neg -Viral PCR, sputum Cx, blood Cx, and urine Ag pending -CT chest and RUQ US pending -Zosyn and Azithromycin for likely PNA [employer] at baseline Bedrest at baseline LTD -Merritt button -PIV Dispo: Patient to be admitted to ICU Visit type - Emergency Visit Emergency Visit: Yes ED Registration Date: 07/21/18 Care time: The patient presented to the Emergency Department on the above date and was hospitalized for further evaluation of their emergent condition. - New Patient This patient is new to me today: Yes Date on this admission: 07/22/18 - Critical Care Critical Care patient: Yes Total Critical Care Time (in minutes): 40 Critical Care Statement: The care of this patient involved high complexity decision making to prevent further life threatening deterioration of the patient 's condition and/or to evaluate & treat vital organ system(s) failure or risk of failure.
[2018-07-21] MEDS ORDERED: diazePAM ACUDIAL 5-7.5-10 MG 1 EACH KIT RC PRN (21:17)
[2018-07-21] MEDS ORDERED: levETIRAcetam 500 MG/5 ML INJECTION VIAL IVPB ONE ×2 (21:19→22:05)
[2018-07-21] MEDS ORDERED: cloBAZam 10 MG TABLET ONE (22:05)
[2018-07-21] MEDS ORDERED: diazePAM 2 MG TABLET ONE (22:05)
[2018-07-21] MEDS: cloBAZam 10 MG TABLET GT SCH (22:19)
[2018-07-21] MEDS: diazePAM 2 MG TABLET GT SCH (22:19)
[2018-07-22] MEDS ORDERED: LORazepam 2 MG/ML SDV VIAL IVPUSH ONE ×2 (02:57→08:25)
[2018-07-22] MEDS ORDERED: LACTATED RINGERS SOLUTION 1,000 ML/1,000 ML INFUS.BAG IV SCH (03:00)
[2018-07-22] MEDS ORDERED: DEXTROSE 5%-WATER - 50 ML IVPB ONE ×3 (03:13→17:11)
[2018-07-22] MEDS ORDERED: PIPERACILLIN/TAZOBACTAM 3.375 GM VIAL IVPB ONE ×3 (03:13→17:11)
[2018-07-22] MEDS: PIPERACILLIN/TAZOB 3.375 GM 3.375 GM in DEXTROSE 5%-WATER - 50 ML IVPB SCH ×4 (03:14→17:15)
[2018-07-22] MEDS ORDERED: BISACODYL 10 MG SUPP.RECT RC PRN (06:41)
[2018-07-22 06:57] LABS: BASO % 0.1 % (0-2.0); HEMATOCRIT 43.7 % (35.4-49); HEMOGLOBIN 13.8 GM/dL (11.7-16.9); LYMPH % 4.3 % (8-40); MCH 27.8 pg (25.7-33.7); MCHC 31.7 g/dl (32.0-35.9); MEAN CELL VOLUME 87.5 fl (80-96); MEAN PLT VOLUME 9.3 fl (7.5-11.1); NEUT % 89.6 % (42.8-82.8); PLATELET COUNT 187 K/MM3 (134-434); RBC 4.99 M/mm3 (4.00-5.60); RDW 15.5 % (11.9-15.9); WHITE BLOOD COUNT 7.6 K/mm3 (4.0-10.0)
[2018-07-22 07:34] LABS: ALBUMIN 2.9 g/dl (3.4-5.0); ALK PHOS 149 U/L (45-117); ANION GAP 6 MMOL/L (8-16); BILIRUBIN,TOTAL 0.4 mg/dL (0.2-1); BLOOD UREA NITROGEN 8 mg/dL (7-18); CALCIUM 8.5 mg/dL (8.5-10.1); CHLORIDE 105 mmol/L (98-107); CO2 26 mmol/L (21-32); CREATININE 0.6 mg/dL (0.55-1.3); GLUCOSE,RANDOM 132 mg/dL (74-106); PHOSPHOROUS 1.7 mg/dL (2.5-4.9); POTASSIUM 4.2 mmol/L (3.5-5.1); SGOT/AST 44 U/L (15-37); SGPT/ALT 166 U/L (13-61); SODIUM 138 mmol/L (136-145); TOT PROT 6.9 g/dl (6.4-8.2)
[2018-07-22] MEDS ORDERED: LORazepam 2 MG/ML SDV VIAL ONE (08:28)
--- NOTE | 2018-07-22 08:42 | EKG ---
Test Reason : Blood Pressure : / mmHG Vent. Rate : 046 BPM Atrial Rate : 046 BPM P-R Int : 242 ms QRS Dur : 114 ms QT Int : 482 ms P-R-T Axes : 044 015 031 degrees QTc Int : 421 ms SINUS BRADYCARDIA WITH 1ST DEGREE A-V BLOCK POSSIBLE LEFT ATRIAL ENLARGEMENT INCOMPLETE LEFT BUNDLE BRANCH BLOCK T WAVE ABNORMALITY, CONSIDER ANTERIOR ISCHEMIA ABNORMAL ECG WHEN COMPARED WITH ECG OF 18-FEB-2017 02:21, HI INTERVAL HAS INCREASED Confirmed by LASHAE TYLER, KENDRA ([id number]) on 07/22/2018 8:42:08 AM Referred By: Confirmed By:KENDRA BHARDWAJ MD
[2018-07-22] MEDS ORDERED: PT OWN MED DRAWER 7, Y5N ONE ×2 (09:12→21:42)
--- NOTE | 2018-07-22 09:54 | PN ---
Progress Note (short form) - Note Progress Note: ID consult dictated imp/reccd 37 yo man with CP/MR admitted from [facility] with upper airway congestion and increased secretions low grade temp, hypothermic in Ed, less responsive s/p LP in Ed- no evidence meningitis chest ct with RML and bibasilar infiltrates started on zosyn/zlthromax had a seizure yesterday as well (known seizure disorder) pneumonia- ?aspiration ?viral send urinary antigens agree with zosyn/zithromax send resp virus PCR influenza/rsv antigens are negative seizure disorder abnl LFTS- trending down- would trend for now Problem List - Problems (1) Pneumonia Code(s): J18.9 - PNEUMONIA, UNSPECIFIED ORGANISM (2) Seizure disorder Code(s): G40.909 - EPILEPSY, UNSP, NOT INTRACTABLE, WITHOUT STATUS EPILEPTICUS (3) Liver function test abnormality Code(s): R79.89 - OTHER SPECIFIED ABNORMAL FINDINGS OF BLOOD CHEMISTRY
[2018-07-22] MEDS ORDERED: MOMETASONE FUROATE 220 MCG/IH INHALER IH SCH (10:00)
[2018-07-22] MEDS ORDERED: IPRATROPIUM BROMIDE IN SCH (10:00)
[2018-07-22] MEDS ORDERED: lamoTRIgine 100 MG TABLET (FP) PO SCH ×2 (10:00)
[2018-07-22] MEDS: MAGNESIUM HYDROX 2400MG/30ML ORAL SUSPENSION 30 ML CUP GT SCH (10:00)
[2018-07-22] MEDS: ENOXAPARIN NA (PORCINE) 40 MG/0.4 ML DISP.SYRIN SQ SCH (10:00)
[2018-07-22] MEDS: SIMETHICONE 40 MG/0.6 ML BOTTLE GT SCH ×4 (10:00→21:45)
[2018-07-22] MEDS: AZITHROMYCIN IVPB 500 MG/250 ML BAG IVPB SCH (10:01)
[2018-07-22] MEDS: ASCORBIC ACID 500 MG/5 ML UNIT DOSE CUP GT SCH ×2 (10:02→21:45)
[2018-07-22] MEDS: MULTIVIT-MINERALS ORAL LIQUID GT SCH (10:03)
[2018-07-22] MEDS: LORATADINE 10 MG TABLET GT SCH (10:05)
[2018-07-22] MEDS: levETIRAcetam 500 MG/5 ML INJECTION VIAL IVPB SCH ×2 (10:05→21:45)
[2018-07-22] MEDS: FOLIC ACID 1 MG TABLET (FP) GT SCH (10:05)
[2018-07-22] MEDS: diazePAM 2 MG TABLET GT SCH ×2 (10:08→21:45)
[2018-07-22] MEDS: LAMOTRIGINE PO SCH (10:08)
--- NOTE | 2018-07-22 10:09 | PN ---
Progress Note (short form) - Note Progress Note: Patient seen and examined in ICU Admitted overnight hypothermic (92f) temp normalized this AM Hemodynamically stable LP neg for bacterial meningitis CT chest w/ bilteral LL infiltrates witnessed seizure this AM t/w ativan Active Medications Ascorbic Acid (Vitamin C Oral Solution -) 500 mg GT BID [facility] Bisacodyl (Dulcolax Suppository -) 10 mg RC DAILY PRN PRN Reason: CONSTIPATION Clobazam (Onfi -) 10 mg GT BID [facility] Last Admin: 07/21/18 22:19 Dose: 10 mg Diazepam (Valium -) 2 mg GT BID [facility] Last Admin: 07/21/18 22:19 Dose: 2 mg Diazepam (Diastat Rectal Gel -) 10 mg RC DAILY PRN PRN Reason: Seizure Enoxaparin Sodium (Lovenox -) 40 mg SQ DAILY [facility] Folic Acid (Folic Acid -) 1 mg GT DAILY [facility] Piperacillin Sod/Tazobactam (Sod 3.375 gm/ Dextrose) 50 mls @ 100 mls/hr IVPB Q8H-IV [facility]; Protocol Azithromycin (Zithromax 500mg Ivpb (Pre-Docked)) 500 mg in 250 mls @ 250 mls/ hr IVPB DAILY [facility] Piperacillin Sod/Tazobactam (Sod 3.375 gm/ Dextrose) 50 mls @ 100 mls/hr IVPB Q8H [facility]; Protocol Stop: 07/22/18 11:44 Last Admin: 07/22/18 03:14 Dose: 100 mls/hr Lactated Ringer's (Lactated Ringers Solution) 1,000 ml in 1,000 mls @ 100 mls/ hr IV ASDIR [facility] Lamotrigine (Lamictal -) 150 mg PO DAILY@1600 [facility] Lamotrigine (Lamictal -) 150 mg GT DAILY@2000 [facility] Lamotrigine 100 mg/ (Lamotrigine 75 mg) 175 mg PO DAILY [facility] Levetiracetam (Keppra Injection -) 500 mg IVPB BID [facility] Loratadine (Claritin -) 10 mg GT DAILY [facility] Magnesium Hydroxide (Milk Of Magnesia -) 30 ml GT DAILY [facility] Mometasone Furoate (Asmanex 220mcg -) 2 puff IH DAILY [facility] Polyethylene Glycol (Miralax (For Daily Use) -) 17 gm GT DAILY [facility] Simethicone (Mylicon Liquid -) 80 mg GT QID [facility] Vital Signs Period Temp Pulse Resp BP Sys/Osullivan Pulse Ox Last 24 Hr 92.1 F-98 F 47-106 12-20 80-122/52-90 94-100 Intake & Output 07/19/18 07/20/18 07/21/18 07/22/18 23:59 23:59 23:59 23:59 Intake Total 450 Balance 450 Weight 46.357 kg Exam: General: in bed w/o distress Pulm: crackles LL Cv: s1. s2 Abd: SNTND Ext: contracted, WWP, trace edema Neuro: non verbal, eye open and tracking CBCD WBC 7.6 K/mm3 (4.0-10.0) 07/22/18 05:30 RBC 4.99 M/mm3 (4.00-5.60) 07/22/18 05:30 Hgb 13.8 GM/dL (11.7-16.9) 07/22/18 05:30 Hct 43.7 % (35.4-49) 07/22/18 05:30 MCV 87.5 fl (80-96) 07/22/18 05:30 MCHC 31.7 g/dl (32.0-35.9) L 07/22/18 05:30 RDW 15.5 % (11.9-15.9) 07/22/18 05:30 Plt Count 187 K/MM3 (134-434) 07/22/18 05:30 MPV 9.3 fl (7.5-11.1) D 07/22/18 05:30 CMP Sodium 138 mmol/L (136-145) 07/22/18 05:30 Potassium 4.2 mmol/L (3.5-5.1) 07/22/18 05:30 Chloride 105 mmol/L (98-107) 07/22/18 05:30 Carbon Dioxide 26 mmol/L (21-32) 07/22/18 05:30 Anion Gap 6 MMOL/L (8-16) L 07/22/18 05:30 BUN 8 mg/dL (7-18) 07/22/18 05:30 Creatinine 0.6 mg/dL (0.55-1.3) 07/22/18 05:30 Creat Clearance w eGFR > 60 (>60) 07/22/18 05:30 Random Glucose 132 mg/dL (74-106) H 07/22/18 05:30 Calcium 8.5 mg/dL (8.5-10.1) 07/22/18 05:30 Total Bilirubin 0.4 mg/dL (0.2-1) 07/22/18 05:30 AST 44 U/L (15-37) H 07/22/18 05:30 ALT 166 U/L (13-61) H 07/22/18 05:30 Alkaline Phosphatase 149 U/L (45-117) H 07/22/18 05:30 Total Protein 6.9 g/dl (6.4-8.2) 07/22/18 05:30 Albumin 2.9 g/dl (3.4-5.0) L 07/22/18 05:30 CARDIAC ENZYMES Troponin I < 0.02 ng/ml (0.00-0.05) 07/21/18 14:51 Microbiology 07/21/18 17:25 Cerebral Spinal Fluid - Lumbar Puncture Gram Stain - Preliminary blood and urine pending CT chest: RML bilateral LL infiltrate CXR: bilteral LL infiltrates All Active Problems Bradycardia (Acute) Hypotension (Acute) Pneumonia (Acute) SIRS (systemic inflammatory response syndrome) (Acute) Hypothermia (Chronic) Femur fracture, right (Acute) Hypoxia (Acute) Elevated liver enzymes (Chronic) Hypertension (Chronic) Seizure disorder (Chronic) - O2 for sat >90% - pulmonary toilet - ABX per ID: zosyn and azithro for HCAP - cont AED: keppra, lamictal, onfi, valium - send urine antigens and flu swab - follow up cultures - DVT prophylaxis - start TFs and bowel regimen - if BP stable will transfer to floor Boerem ACNP Pulm/CCM CCT: 35m
[2018-07-22] MEDS: LACTATED RINGERS SOLUTION 1,000 ML/1,000 ML INFUS.BAG IV SCH (10:10)
[2018-07-22] MEDS: cloBAZam 10 MG TABLET GT SCH ×2 (10:11→21:45)
[2018-07-22] MEDS: POLYETHYLENE GLYCOL 3350 119 GM BTL GT SCH (10:12)
--- NOTE | 2018-07-22 10:47 | CONS ---
INFECTIOUS DISEASE CONSULTATION DATE OF CONSULTATION: DATE OF DICTATION: 07/22/2018 REQUESTING PHYSICIAN: The hospitalist service. This is a 37-year-old man with a history of seizures. He has a history of hydrocephaly, who is admitted from the [facility]. He was sent with upper airway congestion, increased use of asthma medications, with worsening lethargy and bradycardia. He was noted to be hypothermic, bradycardic, and less responsive in the emergency room. He had a lumbar puncture that was negative for infection. He had a CAT scan of his chest that showed a right middle lobe and bibasilar infiltrates, originally got coverage for meningitis with acyclovir, ceftriaxone, and ampicillin. After the LP, switched to Zosyn and Zithromax for pneumonia. I am asked to see him for further evaluation. He is unable to give any history. He had, as well, last night a short seizure which was self-limited. 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 He has a history of scoliosis as well. SURGICAL HISTORY: Notable for a left femoral resection. He has metal devices in his right hip, and he is status post PEG placement. ALLERGIES: He has no known drug allergies. CURRENT MEDICATIONS: Include Diastat, Onfi, diazepam, Lamictal, Keppra, metoprolol, Norvasc, hydrochlorothiazide, Protonix, folic acid, vitamin C, ferrous sulfate, loratadine, senna, MiraLAX, Centrum, minocycline, Os-Yo D. Currently, looking at his medication list, his minocycline has been stopped. SOCIAL HISTORY: No history, of course, of any substance use. He resides at the [facility]. REVIEW OF SYSTEMS: As per HPI. PHYSICAL EXAMINATION: General: He is lying comfortably in bed. He has an occasional wet cough. Vital Signs: Temperature is 98, pulse of 98, blood pressure 122/80, respiratory rate 17, saturating 100% on 3 L. HEENT: He is normocephalic. Eyes are anicteric. He does not follow any commands. Lungs: Scattered rhonchi. Heart: Regular rate and rhythm. Abdomen: Soft. PEG site is clean. Skin: He has no skin breakdown. Extremities: Without edema. LABORATORY DATA: White count on admission was 3.6; this morning is 7.6. Hemoglobin 13.8, platelets of 187. BUN is 8 and creatinine 0.6. His LFTs on admission: AST was 109, ALT of 249; this morning are 44 and 166 with an alkaline phosphatase of 149. Urinalysis is negative. His LP: First tube was 7 white cells. Repeat was 2. Glucose of 58 and total protein of 54. Influenza screen was negative, as was a rapid RSV. In summary, this is a 37-year-old man with profound mental retardation, admitted from the [facility] with: 1. Upper airway congestion and increased secretions, who is now on Zosyn and Zithromax for pneumonia. Question whether this is aspiration or viral. Would send urinary antigens. Would agree with Zosyn and Zithromax. Would also send a respiratory virus PCR as the influenza and RSV antigens are negative. 2. Seizure disorder. 3. Abnormal liver function tests, trending down. Would continue to trend. This may be all due to his current infection. Further recommendations to follow. MOIRA ZARATE M.D. [id number] MTDD
--- NOTE | 2018-07-22 11:46 | CONSULT ---
Consult - text type - Consultation Consultation Note: Neurology CHIEF COMPLAINT: upper respiratory congestion PCP: Zaire Shane HISTORY OF PRESENT ILLNESS: 37 yo Male with PMH of congenital quadriplegia, epilepsy, Pt admitted from [facility] after being noticed with more congestion than normal with some bradycardia, hypotension and hypothermia on day of admission. Paperwork sent with patient indicates he was requiring increased use of his asthma medication and was more lethargic than normal with some bradycardia. Pt is nonverbal though supposedly at baseline will interact some with some babbling. LP performed to r/o meningitis in ER, CSF studies reviewed, 7 then 2 wbc in tubes, RBCs noted, normal glucose, near normal protein. ID note reviewed. Patient with reported seizure like activity per ER conversation, advised to increase Keppra to 500mg twice daily from 250mg. Underlying infection can lower seizure threshold and being managed medically. In ICU care under sepsis protocal. Recent Travel: none PAST MEDICAL HISTORY: As above PAST SURGICAL HISTORY: Right Hip ORIF Rafal Button Social History: Smoking: none Alcohol: none Drugs: none Family History: Allergies No Known Allergies Allergy (Verified 07/21/18 14:14) HOME MEDICATIONS: REVIEW OF SYSTEMS Unobtainable PHYSICAL EXAMINATION Vital Signs Temperature 98 F 07/22/18 05:00 Pulse Rate 98 H 07/22/18 07:15 Respiratory Rate 17 07/22/18 07:15 Blood Pressure 122/80 07/22/18 07:15 O2 Sat by Pulse Oximetry (%) 100 07/22/18 07:15 GENERAL: Awake, seems alert HEAD: Microcephalic, atraumatic. EYES: PERRL, no scleral icterus EARS, NOSE, THROAT: oropharynx clear without exudates. Moist mucous membranes. NECK: supple without lymphadenopathy LUNGS: Poor inspiratory effort, course breath sounds HEART: Regular rate and rhythm, normal S1 and S2 without murmur ABDOMEN: Soft, nontender to palpation, normoactive bowel sounds, rafal cap in place without erythema or drainage MUSCULOSKELETAL: Contracted Extremities EXTREMITIES: 2+ pulses, warm, well-perfused. SKIN: Warm, dry, no rashes or lesions noted anywhere Neuro: Awake, limited movements, no seizure like activity, responds to tactile stimulation CBCD WBC 7.6 K/mm3 (4.0-10.0) 07/22/18 05:30 RBC 4.99 M/mm3 (4.00-5.60) 07/22/18 05:30 Hgb 13.8 GM/dL (11.7-16.9) 07/22/18 05:30 Hct 43.7 % (35.4-49) 07/22/18 05:30 MCV 87.5 fl (80-96) 07/22/18 05:30 MCHC 31.7 g/dl (32.0-35.9) L 07/22/18 05:30 RDW 15.5 % (11.9-15.9) 07/22/18 05:30 Plt Count 187 K/MM3 (134-434) 07/22/18 05:30 MPV 9.3 fl (7.5-11.1) D 07/22/18 05:30 CMP Sodium 138 mmol/L (136-145) 07/22/18 05:30 Potassium 4.2 mmol/L (3.5-5.1) 07/22/18 05:30 Chloride 105 mmol/L (98-107) 07/22/18 05:30 Carbon Dioxide 26 mmol/L (21-32) 07/22/18 05:30 Anion Gap 6 MMOL/L (8-16) L 07/22/18 05:30 BUN 8 mg/dL (7-18) 07/22/18 05:30 Creatinine 0.6 mg/dL (0.55-1.3) 07/22/18 05:30 Creat Clearance w eGFR > 60 (>60) 07/22/18 05:30 Random Glucose 132 mg/dL (74-106) H 07/22/18 05:30 Calcium 8.5 mg/dL (8.5-10.1) 07/22/18 05:30 Total Bilirubin 0.4 mg/dL (0.2-1) 07/22/18 05:30 AST 44 U/L (15-37) H 07/22/18 05:30 ALT 166 U/L (13-61) H 07/22/18 05:30 Alkaline Phosphatase 149 U/L (45-117) H 07/22/18 05:30 Total Protein 6.9 g/dl (6.4-8.2) 07/22/18 05:30 Albumin 2.9 g/dl (3.4-5.0) L 07/22/18 05:30 CARDIAC ENZYMES Troponin I < 0.02 ng/ml (0.00-0.05) 07/21/18 14:51 Diagnostics: CXRAY -completed Head CT - completed Chest CT - completed ASSESSMENT/PLAN: 37 yo Male with PMH of congenital quadriplegia, epilepsy, Pt admitted from [facility] after being noticed with more congestion than normal with some bradycardia, hypotension and hypothermia on day of admission. Paperwork sent with patient indicates he was requiring increased use of his asthma medication and was more lethargic than normal with some bradycardia. Pt is nonverbal though supposedly at baseline will interact some with some babbling. LP performed to r/o meningitis in ER, CSF studies reviewed, 7 then 2 wbc in tubes, RBCs noted, normal glucose, near normal protein. ID note reviewed. Patient with reported seizure like activity per ER conversation, advised to increase Keppra to 500mg twice daily from 250mg. Underlying infection can lower seizure threshold and being managed medically. In ICU care under sepsis protocal. Can continue remaining seizure medications at same dose. If further events would consider increase Keppra to 750 bid. Is also getting ativan if needed. Continue medical optimization, discussed with ICU nurse to monitor for any further abnormal movements. Critical care time 40 mins.
--- NOTE | 2018-07-22 13:37 | PN ---
Progress Note (short form) - Note Progress Note: He is much more alert now comfortable on nasal cannula no other c/o he responds to vocal commands vs Vital Signs Period Temp Pulse Resp BP Sys/Osullivan Pulse Ox Last 24 Hr 92.1 F-98 F 47-106 12-22 80-122/52-90 94-100 Heent nad neck supple lungs coarse bs bilateral lungs heart mild tachycardia abd soft and non tender neuro he responds to vocal commands Seen by Neuro appreciated Laboratory Results - last 24 hr 07/21/18 07/21/18 07/21/18 14:51 14:51 14:51 WBC 3.6 L RBC 5.33 Hgb 15.7 Hct 45.7 MCV 85.7 MCH 29.4 MCHC 34.3 RDW 15.4 Plt Count 191 MPV 8.1 Absolute Neuts (auto) 2.4 Neutrophils % 67.1 Lymphocytes % 21.5 D Monocytes % 8.1 Eosinophils % 3.0 Basophils % 0.3 Nucleated RBC % 0 PT with INR 12.30 INR 1.04 PTT (Actin FS) 45.8 H VBG pH 7.35 POC VBG pCO2 53.7 H POC VBG pO2 53.6 H Mixed VBG HCO3 28.6 H Sodium Potassium Chloride Carbon Dioxide Anion Gap BUN Creatinine Creat Clearance w eGFR Random Glucose Lactic Acid Calcium Phosphorus Magnesium Total Bilirubin AST ALT Alkaline Phosphatase Troponin I Total Protein Albumin TSH Urine Color Urine Appearance Urine pH Ur Specific [place] Urine Protein Urine Glucose (UA) Urine Ketones Urine Blood Urine Nitrite Urine Bilirubin Urine Urobilinogen Ur Leukocyte Esterase CSF Appearance CSF Color CSF WBC CSF RBC CSF Neutrophils CSF Lymphocytes CSF Eosinophils CSF Basophils CSF Macrophages CSF Plasma Cells CSF Diff Comment CSF Comment CSF Glucose CSF Total Protein Influenza A (Rapid) Influenza B (Rapid) RSV Rapid Blood Type Antibody Screen 07/21/18 07/21/18 07/21/18 14:51 14:51 15:42 WBC RBC Hgb Hct MCV MCH MCHC RDW Plt Count MPV Absolute Neuts (auto) Neutrophils % Lymphocytes % Monocytes % Eosinophils % Basophils % Nucleated RBC % PT with INR INR PTT (Actin FS) VBG pH POC VBG pCO2 POC VBG pO2 Mixed VBG HCO3 Sodium 136 Potassium 4.2 Chloride 99 Carbon Dioxide 31 Anion Gap 6 L BUN 10 Creatinine 0.4 L Creat Clearance w eGFR > 60 Random Glucose 128 H Lactic Acid 1.8 Calcium 9.6 Phosphorus Magnesium Total Bilirubin 0.2 AST 109 H ALT 249 H Alkaline Phosphatase 192 H Troponin I < 0.02 Total Protein 8.0 Albumin 3.4 TSH Urine Color Ltyellow Urine Appearance Clear Urine pH 8.0 Ur Specific [place] 1.008 L Urine Protein Negative Urine Glucose (UA) Negative Urine Ketones Negative Urine Blood Negative Urine Nitrite Negative Urine Bilirubin Negative Urine Urobilinogen Negative Ur Leukocyte Esterase Negative CSF Appearance CSF Color CSF WBC CSF RBC CSF Neutrophils CSF Lymphocytes CSF Eosinophils CSF Basophils CSF Macrophages CSF Plasma Cells CSF Diff Comment CSF Comment CSF Glucose CSF Total Protein Influenza A (Rapid) Influenza B (Rapid) RSV Rapid Blood Type Antibody Screen 07/21/18 07/21/18 07/21/18 17:31 17:31 17:41 WBC RBC Hgb Hct MCV MCH MCHC RDW Plt Count MPV Absolute Neuts (auto) Neutrophils % Lymphocytes % Monocytes % Eosinophils % Basophils % Nucleated RBC % PT with INR INR PTT (Actin FS) VBG pH POC VBG pCO2 POC VBG pO2 Mixed VBG HCO3 Sodium Potassium Chloride Carbon Dioxide Anion Gap BUN Creatinine Creat Clearance w eGFR Random Glucose Lactic Acid Calcium Phosphorus Magnesium Total Bilirubin AST ALT Alkaline Phosphatase Troponin I Total Protein Albumin TSH Urine Color Urine Appearance Urine pH Ur Specific [place] Urine Protein Urine Glucose (UA) Urine Ketones Urine Blood Urine Nitrite Urine Bilirubin Urine Urobilinogen Ur Leukocyte Esterase CSF Appearance Clear CSF Color Colorless CSF WBC 7 CSF RBC 300 CSF Neutrophils No Result Required. CSF Lymphocytes No Result Required. CSF Eosinophils No Result Required. CSF Basophils No Result Required. CSF Macrophages No Result Required. CSF Plasma Cells No Result Required. CSF Diff Comment No Result Required. CSF Comment Tube #1 CSF Glucose 58 Cancelled CSF Total Protein 54 H Cancelled Influenza A (Rapid) Influenza B (Rapid) RSV Rapid Blood Type Cancelled Antibody Screen Cancelled 07/21/18 07/21/18 07/21/18 17:41 18:22 22:18 WBC RBC Hgb Hct MCV MCH MCHC RDW Plt Count MPV Absolute Neuts (auto) Neutrophils % Lymphocytes % Monocytes % Eosinophils % Basophils % Nucleated RBC % PT with INR INR PTT (Actin FS) VBG pH POC VBG pCO2 POC VBG pO2 Mixed VBG HCO3 Sodium Potassium Chloride Carbon Dioxide Anion Gap BUN Creatinine Creat Clearance w eGFR Random Glucose Lactic Acid Calcium Phosphorus Magnesium Total Bilirubin AST ALT Alkaline Phosphatase Troponin I Total Protein Albumin TSH Urine Color Urine Appearance Urine pH Ur Specific [place] Urine Protein Urine Glucose (UA) Urine Ketones Urine Blood Urine Nitrite Urine Bilirubin Urine Urobilinogen Ur Leukocyte Esterase CSF Appearance Clear CSF Color Colorless CSF WBC 2 CSF RBC 10 CSF Neutrophils No Result Required. CSF Lymphocytes No Result Required. CSF Eosinophils No Result Required. CSF Basophils No Result Required. CSF Macrophages No Result Required. CSF Plasma Cells No Result Required. CSF Diff Comment No Result Required. CSF Comment Tube#4 CSF Glucose No Result Required. CSF Total Protein No Result Required. Influenza A (Rapid) Negative Influenza B (Rapid) Negative RSV Rapid Negative Blood Type Antibody Screen 07/22/18 07/22/18 05:30 05:30 WBC 7.6 RBC 4.99 Hgb 13.8 Hct 43.7 MCV 87.5 MCH 27.8 MCHC 31.7 L RDW 15.5 Plt Count 187 MPV 9.3 D Absolute Neuts (auto) 6.8 Neutrophils % 89.6 H D Lymphocytes % 4.3 L D Monocytes % 6.0 Eosinophils % 0.0 D Basophils % 0.1 Nucleated RBC % 0 PT with INR INR PTT (Actin FS) VBG pH POC VBG pCO2 POC VBG pO2 Mixed VBG HCO3 Sodium 138 Potassium 4.2 Chloride 105 Carbon Dioxide 26 Anion Gap 6 L BUN 8 Creatinine 0.6 Creat Clearance w eGFR > 60 Random Glucose 132 H Lactic Acid Calcium 8.5 Phosphorus 1.7 L Magnesium 2.0 Total Bilirubin 0.4 AST 44 H ALT 166 H Alkaline Phosphatase 149 H Troponin I Total Protein 6.9 Albumin 2.9 L TSH 0.53 D Urine Color Urine Appearance Urine pH Ur Specific [place] Urine Protein Urine Glucose (UA) Urine Ketones Urine Blood Urine Nitrite Urine Bilirubin Urine Urobilinogen Ur Leukocyte Esterase CSF Appearance CSF Color CSF WBC CSF RBC CSF Neutrophils CSF Lymphocytes CSF Eosinophils CSF Basophils CSF Macrophages CSF Plasma Cells CSF Diff Comment CSF Comment CSF Glucose CSF Total Protein Influenza A (Rapid) Influenza B (Rapid) RSV Rapid Blood Type Antibody Screen Assessment and Plan sepsis he is on fluids and antibiotics his influenza and rsv tests are negative csf results are normal so far his wbc count is 7 k will continue abx and fluids seen by ID as well 2 Elevated lfts today they are getting better 3 hypotention getting better on current fluids and abx Visit type - Emergency Visit Emergency Visit: No - New Patient This patient is new to me today: Yes Date on this admission: 07/23/18 - Critical Care Critical Care patient: Yes Total Critical Care Time (in minutes): 35 Critical Care Statement: The care of this patient involved high complexity decision making to prevent further life threatening deterioration of the patient 's condition and/or to evaluate & treat vital organ system(s) failure or risk of failure. - Discharge Referral Referred to [facility] Med P.C.: No
[2018-07-22] MEDS: lamoTRIgine 100 MG TABLET (FP) PO SCH (15:00)
[2018-07-22] MEDS: ALBUTEROL SO4 2.5/IPRATROPIUM 0.5 INH SOL 3 ML VIAL.NEB. NEB PRN (20:10)
[2018-07-22] MEDS: lamoTRIgine 100 MG TABLET (FP) GT SCH (21:45)
[2018-07-23] MEDS ORDERED: DEXTROSE 5%-WATER - 50 ML IVPB ONE ×3 (02:47→16:32)
[2018-07-23] MEDS ORDERED: PIPERACILLIN/TAZOBACTAM 3.375 GM VIAL IVPB ONE ×3 (02:47→16:32)
[2018-07-23] MEDS: PIPERACILLIN/TAZOB 3.375 GM 3.375 GM in DEXTROSE 5%-WATER - 50 ML IVPB SCH ×4 (02:55→17:22)
[2018-07-23] MEDS: ALBUTEROL SO4 2.5/IPRATROPIUM 0.5 INH SOL 3 ML VIAL.NEB. NEB PRN ×3 (07:01→15:51)
[2018-07-23] MEDS: LACTATED RINGERS SOLUTION 1,000 ML/1,000 ML INFUS.BAG IV SCH (07:02)
--- NOTE | 2018-07-23 07:30 | PN ---
Physical Exam: SUBJECTIVE: Patient seen and examined. Coughing with significant whitish sputum. Afebrile. OBJECTIVE: Vital Signs Period Temp Pulse Resp BP Sys/Osullivan Pulse Ox Last 24 Hr 97.6 F-97.8 F 84-106 16-22 104-129/58-84 100 Vital Signs Temp 97.6 F 07/23/18 10:00 Pulse 87 07/23/18 10:00 Resp 18 07/23/18 10:00 BP 126/94 07/23/18 10:00 Pulse Ox 92 L 07/23/18 08:00 Intake & Output 07/22/18 07/23/18 07/23/18 23:59 11:59 23:59 Intake Total 920 1080 Output Total 325 300 Balance 595 780 Weight 48.308 kg Intake: IV 800 400 LACTATED RINGERS SOLUTION 200 400 1,000 ml In 1,000 ml @ 100 mls/hr IV ASDIR TRINO Rx#:[id number] LACTATED RINGERS SOLUTION 600 1,000 ml In 1,000 ml @ 75 mls/hr IV ASDIR TRINO Rx #:[id number] IVPB 400 Tube Feeding 40 280 Tube Irrigant 80 0 Output: Urine 325 300 External Catheter 300 Void 325 Other: Voiding Method External Catheter External Catheter # Unmeasured Voids Void 2 3 Weight Measurement Method Built in [facility] GENERAL: The patient is awake, in no acute respiratory distress. HEAD: Normal with no signs of trauma. EYES: PERRL ENT: moist mucous membranes. Off NC LUNGS: Rhonchi HEART: Regular rate and rhythm, S1, S2 ABDOMEN: Soft, nontender, nondistended, normoactive bowel sounds, gastrotomy tube in place L EXTREMITIES: 2+ pulses, warm, well-perfused, no edema, contracted . NEUROLOGICAL: Difficult to assess- no obvious facial asymmetry CBC, BMP 07/23/18 09:30 07/23/18 09:30 Laboratory Results - last 24 hr 07/22/18 07/22/18 05:30 12:30 Sodium 138 Potassium 4.2 Chloride 105 Carbon Dioxide 26 Anion Gap 6 L BUN 8 Creatinine 0.6 Creat Clearance w eGFR > 60 Random Glucose 132 H Calcium 8.5 Phosphorus 1.7 L Magnesium 2.0 Total Bilirubin 0.4 AST 44 H ALT 166 H Alkaline Phosphatase 149 H Total Protein 6.9 Albumin 2.9 L TSH 0.53 D Influenza A (Rapid) Negative Influenza B (Rapid) Negative Active Medications Generic Name Dose Route Start Last Admin Trade Name Silvestre PRN Reason Stop Dose Admin Albuterol/Ipratropium 1 amp 07/22/18 18:44 07/23/18 07:01 Duoneb - NEB 1 amp Q6H PRN Administration SHORTNESS OF BREATH Ascorbic Acid 500 mg 07/22/18 10:00 07/22/18 21:45 Vitamin C Oral Solution - GT 500 mg BID TRINO Administration Bisacodyl 10 mg 07/22/18 06:41 Dulcolax Suppository - RC DAILY PRN CONSTIPATION Clobazam 10 mg 07/21/18 22:00 07/22/18 21:45 Onfi - GT 10 mg BID TRINO Administration Diazepam 2 mg 07/21/18 22:00 07/22/18 21:45 Valium - GT 2 mg BID TRINO Administration Diazepam 10 mg 07/21/18 21:17 Diastat Rectal Gel - RC DAILY PRN Seizure Enoxaparin Sodium 40 mg 07/22/18 10:00 07/22/18 10:00 Lovenox - SQ 40 mg DAILY TRINO Administration Folic Acid 1 mg 07/22/18 10:00 07/22/18 10:05 Folic Acid - GT 1 mg DAILY TRINO Administration Piperacillin Sod/Tazobactam 50 mls @ 100 mls/hr 07/22/18 18:00 07/23/18 02:55 Sod 3.375 gm/ Dextrose IVPB 100 mls/hr Q8H-IV TRINO Administration Protocol Azithromycin 500 mg in 250 mls @ 250 mls/hr 07/22/18 10:00 07/22/18 10:01 Zithromax 500mg Ivpb (Pre-Docked) IVPB 250 mls/hr DAILY TRINO Administration Lactated Ringer's 1,000 ml in 1,000 mls @ 100 mls/hr 07/22/18 06:23 07/23/18 07:02 Lactated Ringers Solution IV 100 mls/hr ASDIR TRINO Administration Lamotrigine 150 mg 07/22/18 16:00 07/22/18 15:00 Lamictal - PO 150 mg DAILY@1600 TRINO Administration Lamotrigine 150 mg 07/22/18 20:00 07/22/18 21:45 Lamictal - GT 150 mg DAILY@2000 TRINO Administration Lamotrigine 100 mg/ 175 mg 07/22/18 10:00 07/22/18 10:08 Lamotrigine 75 mg PO 175 mg DAILY TRINO Administration Levetiracetam 500 mg 07/22/18 10:00 07/22/18 21:45 Keppra Injection - IVPB 500 mg BID TRINO Administration Loratadine 10 mg 07/22/18 10:00 07/22/18 10:05 Claritin - GT 10 mg DAILY TRINO Administration Magnesium Hydroxide 30 ml 07/22/18 10:00 07/22/18 10:00 Milk Of Magnesia - GT 30 ml DAILY TRINO Administration Polyethylene Glycol 17 gm 07/22/18 10:00 07/22/18 10:12 Miralax (For Daily Use) - GT 17 gm DAILY TRINO Administration Simethicone 80 mg 07/22/18 10:00 07/22/18 21:45 Mylicon Liquid - GT 80 mg QID TRINO Administration ASSESSMENT/PLAN: 37 yo Male with PMH of congenital quadriplegia, epilepsy, MR admitted from [facility] after being noticed with more congestion than normal with some bradycardia, hypotension and hypothermia #SIRS likely secondary to PNA -Coarse breath sounds , still with cough ad secretions -Hypotensive, Hypothermic, -stable, off biarhugger, normal temp, stable BP -off NC -UA negative, CSF studies unremarkable, cultures pending, blood c/s pending -Cont IV Zosyn/Azythromycin likely 1 more day, can switch to PO (augmentin) on dc- D/W Dr Altamirano -Chest CT with right middle lobe consolidation, bibasilar infiltrate, and mucus seen in trachea and upper airway -Viral PCR -Urine legionella/pneumo antigens-negative -LR @ 100 cc/hr -On feeds #Epilepsy -Continue home antiseizure medications -Lamictal/Keppra/Valium -Diastat PRN -Seizure like episode in ED -Will give home meds with IV dose 500 mg Keppra -Case discussed with neurology, recommended increasing Keppra to 500 mg BID #Transaminitis -Has been worked up in the past but above baseline -RUQ US with cholelithiasis but no signs of cholecystitis -Trend CMP #DVT Prophylaxis -Lovenox 40 mg SQ Daily #FEN -Fluids: LR @ 100 cc/hr -Electrolytes: No electrolyte abnormalities, CMP in AM -Nutrition: Hold feeds Disposition Transfer to Med surg Visit type - Emergency Visit Emergency Visit: Yes ED Registration Date: 07/21/18 Care time: The patient presented to the Emergency Department on the above date and was hospitalized for further evaluation of their emergent condition. - New Patient This patient is new to me today: Yes Date on this admission: 07/23/18 - Critical Care Critical Care patient: Yes Total Critical Care Time (in minutes): 40 Critical Care Statement: The care of this patient involved high complexity decision making to prevent further life threatening deterioration of the patient 's condition and/or to evaluate & treat vital organ system(s) failure or risk of failure. - Discharge Referral Referred to [facility] Med P.C.: No
--- NOTE | 2018-07-23 09:14 | PN ---
Progress Note (short form) - Note Progress Note: Seen and examined in the ICU no witnessed seizures overnight weaned off O2 this AM requires NT suction at times Current Medications Albuterol/Ipratropium (Duoneb -) 1 amp NEB Q6H PRN PRN Reason: SHORTNESS OF BREATH Last Admin: 07/23/18 07:01 Dose: 1 amp Amoxicillin/Clavulanate Potassium (Augmentin - 500mg Tablet) 1 tab PO BID@0800, 1730 [facility] Ascorbic Acid (Vitamin C Oral Solution -) 500 mg GT BID [facility] Last Admin: 07/22/18 21:45 Dose: 500 mg Bisacodyl (Dulcolax Suppository -) 10 mg RC DAILY PRN PRN Reason: CONSTIPATION Clobazam (Onfi -) 10 mg GT BID [facility] Last Admin: 07/22/18 21:45 Dose: 10 mg Diazepam (Valium -) 2 mg GT BID [facility] Last Admin: 07/22/18 21:45 Dose: 2 mg Diazepam (Diastat Rectal Gel -) 10 mg RC DAILY PRN PRN Reason: Seizure Enoxaparin Sodium (Lovenox -) 40 mg SQ DAILY [facility] Last Admin: 07/22/18 10:00 Dose: 40 mg Folic Acid (Folic Acid -) 1 mg GT DAILY [facility] Last Admin: 07/22/18 10:05 Dose: 1 mg Azithromycin (Zithromax 500mg Ivpb (Pre-Docked)) 500 mg in 250 mls @ 250 mls/ hr IVPB DAILY [facility] Last Admin: 07/22/18 10:01 Dose: 250 mls/hr Lactated Ringer's (Lactated Ringers Solution) 1,000 ml in 1,000 mls @ 100 mls/ hr IV ASDIR [facility] Last Admin: 07/23/18 07:02 Dose: 100 mls/hr Lamotrigine (Lamictal -) 150 mg PO DAILY@1600 [facility] Last Admin: 07/22/18 15:00 Dose: 150 mg Lamotrigine (Lamictal -) 150 mg GT DAILY@2000 [facility] Last Admin: 07/22/18 21:45 Dose: 150 mg Lamotrigine 100 mg/ (Lamotrigine 75 mg) 175 mg PO DAILY [facility] Last Admin: 07/22/18 10:08 Dose: 175 mg Levetiracetam (Keppra Injection -) 500 mg IVPB BID [facility] Last Admin: 07/22/18 21:45 Dose: 500 mg Loratadine (Claritin -) 10 mg GT DAILY [facility] Last Admin: 07/22/18 10:05 Dose: 10 mg Magnesium Hydroxide (Milk Of Magnesia -) 30 ml GT DAILY [facility] Last Admin: 07/22/18 10:00 Dose: 30 ml Polyethylene Glycol (Miralax (For Daily Use) -) 17 gm GT DAILY [facility] Last Admin: 07/22/18 10:12 Dose: 17 gm Simethicone (Mylicon Liquid -) 80 mg GT QID [facility] Last Admin: 07/22/18 21:45 Dose: 80 mg Vital Signs Period Temp Pulse Resp BP Sys/Osullivan Pulse Ox Last 24 Hr 97.6 F-97.9 F 82-106 16-22 104-129/58-84 92-100 Intake & Output 07/20/18 07/21/18 07/22/18 07/23/18 23:59 23:59 23:59 23:59 Intake Total 1370 280 Output Total 325 Balance 1045 280 Weight 46.357 kg 48.308 kg Exam: General: in bed w/o distress, off O2 Pulm: crackles LL Cv: s1. s2 Abd: SNTND Ext: contracted, WWP, trace edema Neuro: non verbal, eye open and tracking CBC, BMP 07/22/18 05:30 07/22/18 05:30 CARDIAC ENZYMES Troponin I < 0.02 ng/ml (0.00-0.05) 07/21/18 14:[address] chest: RML bilateral LL infiltrate CXR: bilteral LL infiltrates All Active Problems Bradycardia (Acute) Hypotension (Acute) Pneumonia (Acute) SIRS (systemic inflammatory response syndrome) (Acute) Hypothermia (Chronic) Femur fracture, right (Acute) Hypoxia (Acute) Elevated liver enzymes (Chronic) Hypertension (Chronic) Seizure disorder (Chronic) - O2 for sat >90% - pulmonary toilet - ABX transition to augmention po - cont AED: keppra, lamictal, onfi, valium - send urine antigens and flu swab - follow up cultures - DVT prophylaxis - TFs and bowel regimen -stable for floor transfer Boerem ACNP Pulm/CCM CCT: 35m
[2018-07-23] MEDS ORDERED: PT OWN MED DRAWER 7, Y5N ONE ×3 (09:15→20:53)
[2018-07-23] MEDS: LORATADINE 10 MG TABLET GT SCH (09:24)
[2018-07-23] MEDS: ENOXAPARIN NA (PORCINE) 40 MG/0.4 ML DISP.SYRIN SQ SCH (09:24)
[2018-07-23] MEDS: MAGNESIUM HYDROX 2400MG/30ML ORAL SUSPENSION 30 ML CUP GT SCH (09:24)
[2018-07-23] MEDS: diazePAM 2 MG TABLET GT SCH ×2 (09:24→21:30)
[2018-07-23] MEDS: FOLIC ACID 1 MG TABLET (FP) GT SCH (09:24)
[2018-07-23] MEDS: levETIRAcetam 500 MG/5 ML INJECTION VIAL IVPB SCH ×2 (09:24→21:30)
[2018-07-23] MEDS: AZITHROMYCIN IVPB 500 MG/250 ML BAG IVPB SCH (09:24)
[2018-07-23] MEDS: cloBAZam 10 MG TABLET GT SCH ×2 (09:25→21:30)
[2018-07-23] MEDS: POLYETHYLENE GLYCOL 3350 119 GM BTL GT SCH (09:30)
--- NOTE | 2018-07-23 09:41 | PN ---
Progress Note (short form) - Note Progress Note: continues to cough white sputum production Vital Signs Period Temp Pulse Resp BP Sys/Osullivan Pulse Ox Last 24 Hr 97.6 F-97.9 F 82-106 16-22 104-129/58-84 92-100 cor-rrr lungs scattered rhonchi abd soft,nt ext no edema CBC, BMP 07/22/18 05:30 07/22/18 05:30 Microbiology 07/21/18 17:25 Cerebral Spinal Fluid - Lumbar Puncture Gram Stain - Preliminary 07/21/18 17:25 Cerebral Spinal Fluid - Lumbar Puncture CSF Culture - Preliminary NO GROWTH OBTAINED AFTER 24 HOURS INCUBATION, REINCUBATED. 07/21/18 14:51 Blood - Peripheral Venous Blood Culture - Preliminary NO GROWTH OBTAINED AFTER 24 HOURS, INCUBATION TO CONTINUE FOR 4 DAYS. 07/21/18 14:51 Blood - Peripheral Venous Blood Culture - Preliminary NO GROWTH OBTAINED AFTER 24 HOURS, INCUBATION TO CONTINUE FOR 4 DAYS. cxray-improved a/p pneumonia- ?aspiration ?viral agree with zosyn/zithromax send resp virus PCR d/u urinary antigens hopefully po tomorrow- if antigens negative, augmentin influenza/rsv antigens are negative seizure disorder abnl LFTS- trending down- would trend for now Problem List - Problems (1) Pneumonia Code(s): J18.9 - PNEUMONIA, UNSPECIFIED ORGANISM (2) Seizure disorder Code(s): G40.909 - EPILEPSY, UNSP, NOT INTRACTABLE, WITHOUT STATUS EPILEPTICUS (3) Liver function test abnormality Code(s): R79.89 - OTHER SPECIFIED ABNORMAL FINDINGS OF BLOOD CHEMISTRY
[2018-07-23 10:15] LABS: HEMATOCRIT 36.6 % (35.4-49); HEMOGLOBIN 12.4 GM/dL (11.7-16.9); MCH 29.2 pg (25.7-33.7); MCHC 33.9 g/dl (32.0-35.9); MEAN CELL VOLUME 86.1 fl (80-96); MEAN PLT VOLUME 8.6 fl (7.5-11.1); PLATELET COUNT 189 K/MM3 (134-434); RBC 4.26 M/mm3 (4.00-5.60); RDW 15.6 % (11.9-15.9); WHITE BLOOD COUNT 4.1 K/mm3 (4.0-10.0)
[2018-07-23 10:38] LABS: ANION GAP 7 MMOL/L (8-16); BLOOD UREA NITROGEN 6 mg/dL (7-18); CALCIUM 8.7 mg/dL (8.5-10.1); CHLORIDE 105 mmol/L (98-107); CO2 29 mmol/L (21-32); CREATININE 0.5 mg/dL (0.55-1.3); GLUCOSE,RANDOM 90 mg/dL (74-106); MAGNESIUM 1.9 mg/dL (1.8-2.4); PHOSPHOROUS 2.6 mg/dL (2.5-4.9); POTASSIUM 3.5 mmol/L (3.5-5.1); SODIUM 141 mmol/L (136-145)
[2018-07-23] MEDS: ASCORBIC ACID 500 MG/5 ML UNIT DOSE CUP GT SCH ×2 (10:58→21:26)
[2018-07-23] MEDS: LAMOTRIGINE PO SCH (10:58)
[2018-07-23] MEDS: SIMETHICONE 40 MG/0.6 ML BOTTLE GT SCH ×4 (10:58→21:25)
[2018-07-23] MEDS: MULTIVIT-MINERALS ORAL LIQUID GT SCH (10:59)
--- NOTE | 2018-07-23 11:59 | PN ---
Teaching Attending Note Name of Resident: Sofiya Almendarez ATTENDING PHYSICIAN STATEMENT I saw and evaluated the patient. I reviewed the resident's note and discussed the case with the resident. I agree with the resident's findings and plan as documented. SUBJECTIVE:pt seen and examined and he is much better no seizure last night he is comfortable and has whitish mucus has no fever OBJECTIVE: Vital Signs Period Temp Pulse Resp BP Sys/Osullivan Pulse Ox Last 24 Hr 97.6 F-97.9 F 82-106 16-21 106-129/58-94 92-100 Current Medications Albuterol/Ipratropium (Duoneb -) 1 amp NEB Q6H PRN PRN Reason: SHORTNESS OF BREATH Last Admin: 07/23/18 07:01 Dose: 1 amp Ascorbic Acid (Vitamin C Oral Solution -) 500 mg GT BID [facility] Last Admin: 07/23/18 10:58 Dose: 500 mg Bisacodyl (Dulcolax Suppository -) 10 mg RC DAILY PRN PRN Reason: CONSTIPATION Clobazam (Onfi -) 10 mg GT BID [facility] Last Admin: 07/23/18 09:25 Dose: 10 mg Diazepam (Valium -) 2 mg GT BID [facility] Last Admin: 07/23/18 09:24 Dose: 2 mg Diazepam (Diastat Rectal Gel -) 10 mg RC DAILY PRN PRN Reason: Seizure Enoxaparin Sodium (Lovenox -) 40 mg SQ DAILY [facility] Last Admin: 07/23/18 09:24 Dose: 40 mg Folic Acid (Folic Acid -) 1 mg GT DAILY [facility] Last Admin: 07/23/18 09:24 Dose: 1 mg Azithromycin (Zithromax 500mg Ivpb (Pre-Docked)) 500 mg in 250 mls @ 250 mls/ hr IVPB DAILY [facility] Last Admin: 07/23/18 09:24 Dose: 250 mls/hr Piperacillin Sod/Tazobactam (Sod 3.375 gm/ Dextrose) 50 mls @ 100 mls/hr IVPB Q8H-IV [facility]; Protocol Last Admin: 07/23/18 11:29 Dose: Not Given Lamotrigine (Lamictal -) 150 mg PO DAILY@1600 [facility] Last Admin: 07/22/18 15:00 Dose: 150 mg Lamotrigine (Lamictal -) 150 mg GT DAILY@2000 [facility] Last Admin: 07/22/18 21:45 Dose: 150 mg Lamotrigine 100 mg/ (Lamotrigine 75 mg) 175 mg PO DAILY [facility] Last Admin: 07/23/18 10:58 Dose: 175 mg Levetiracetam (Keppra Injection -) 500 mg IVPB BID [facility] Last Admin: 07/23/18 09:24 Dose: 500 mg Loratadine (Claritin -) 10 mg GT DAILY [facility] Last Admin: 07/23/18 09:24 Dose: 10 mg Magnesium Hydroxide (Milk Of Magnesia -) 30 ml GT DAILY [facility] Last Admin: 07/23/18 09:24 Dose: 30 ml Polyethylene Glycol (Miralax (For Daily Use) -) 17 gm GT DAILY [facility] Last Admin: 07/23/18 09:30 Dose: 17 gm Simethicone (Mylicon Liquid -) 80 mg GT QID [facility] Last Admin: 07/23/18 10:58 Dose: 80 mg Laboratory Results - last 24 hr 07/22/18 07/23/18 07/23/18 12:30 09:30 09:30 WBC 4.1 RBC 4.26 Hgb 12.4 Hct 36.6 D MCV 86.1 MCH 29.2 MCHC 33.9 RDW 15.6 Plt Count 189 MPV 8.6 Sodium 141 Potassium 3.5 Chloride 105 Carbon Dioxide 29 Anion Gap 7 L BUN 6 L Creatinine 0.5 L Creat Clearance w eGFR > 60 Random Glucose 90 Calcium 8.7 Phosphorus 2.6 Magnesium 1.9 Influenza A (Rapid) Negative Influenza B (Rapid) Negative Heent stable lungs coarse bs inocente heart no change ext no edema neuro , he is responding to vocal commands ASSESSMENT AND PLAN: sepsis he is on fluids and antibiotics seen by id and recommended to continue for one more day his influenza and rsv tests are negative csf results are normal so far his wbc count is 7 k Elevated lfts repeat am hypotention much better will stop iv fluids and start on full feeding
--- NOTE | 2018-07-23 12:22 | PN ---
Progress Note (short form) - Note Progress Note: Neurology CHIEF COMPLAINT: upper respiratory congestion PCP: Zaire Shane HISTORY OF PRESENT ILLNESS: 37 yo Male with PMH of congenital quadriplegia, epilepsy, Pt admitted from [facility] after being noticed with more congestion than normal with some bradycardia, hypotension and hypothermia on day of admission. Paperwork sent with patient indicates he was requiring increased use of his asthma medication and was more lethargic than normal with some bradycardia. Pt is nonverbal though supposedly at baseline will interact some with some babbling. LP performed to r/o meningitis in ER, CSF studies reviewed, 7 then 2 wbc in tubes, RBCs noted, normal glucose, near normal protein. ID note reviewed. Patient with reported seizure like activity per ER conversation, advised to increase Keppra to 500mg twice daily from 250mg. Underlying infection can lower seizure threshold and being managed medically. In ICU care under sepsis protocol. Discussed with nurse at bedside, no new neurologic events or abnormal motor activity. ID following, note reviewed. Remains on Abx as below. Allergies Allergy/AdvReac Type Severity Reaction Status Date / Time No Known Allergies Allergy Verified 07/21/18 14:14 Active Medications Albuterol/Ipratropium (Duoneb -) 1 amp NEB Q6H PRN PRN Reason: SHORTNESS OF BREATH Last Admin: 07/23/18 07:01 Dose: 1 amp Ascorbic Acid (Vitamin C Oral Solution -) 500 mg GT BID [facility] Last Admin: 07/23/18 10:58 Dose: 500 mg Bisacodyl (Dulcolax Suppository -) 10 mg RC DAILY PRN PRN Reason: CONSTIPATION Clobazam (Onfi -) 10 mg GT BID [facility] Last Admin: 07/23/18 09:25 Dose: 10 mg Diazepam (Valium -) 2 mg GT BID [facility] Last Admin: 07/23/18 09:24 Dose: 2 mg Diazepam (Diastat Rectal Gel -) 10 mg RC DAILY PRN PRN Reason: Seizure Enoxaparin Sodium (Lovenox -) 40 mg SQ DAILY [facility] Last Admin: 07/23/18 09:24 Dose: 40 mg Folic Acid (Folic Acid -) 1 mg GT DAILY [facility] Last Admin: 07/23/18 09:24 Dose: 1 mg Azithromycin (Zithromax 500mg Ivpb (Pre-Docked)) 500 mg in 250 mls @ 250 mls/ hr IVPB DAILY [facility] Last Admin: 07/23/18 09:24 Dose: 250 mls/hr Piperacillin Sod/Tazobactam (Sod 3.375 gm/ Dextrose) 50 mls @ 100 mls/hr IVPB Q8H-IV [facility]; Protocol Last Admin: 07/23/18 11:29 Dose: Not Given Lamotrigine (Lamictal -) 150 mg PO DAILY@1600 [facility] Last Admin: 07/22/18 15:00 Dose: 150 mg Lamotrigine (Lamictal -) 150 mg GT DAILY@2000 [facility] Last Admin: 07/22/18 21:45 Dose: 150 mg Lamotrigine 100 mg/ (Lamotrigine 75 mg) 175 mg PO DAILY [facility] Last Admin: 07/23/18 10:58 Dose: 175 mg Levetiracetam (Keppra Injection -) 500 mg IVPB BID [facility] Last Admin: 07/23/18 09:24 Dose: 500 mg Loratadine (Claritin -) 10 mg GT DAILY [facility] Last Admin: 07/23/18 09:24 Dose: 10 mg Magnesium Hydroxide (Milk Of Magnesia -) 30 ml GT DAILY [facility] Last Admin: 07/23/18 09:24 Dose: 30 ml Polyethylene Glycol (Miralax (For Daily Use) -) 17 gm GT DAILY [facility] Last Admin: 07/23/18 09:30 Dose: 17 gm Potassium Chloride (Potassium Chloride Oral Liquid) 40 meq PO ONCE ONE Stop: 07/23/18 12:25 Simethicone (Mylicon Liquid -) 80 mg GT QID [facility] Last Admin: 07/23/18 10:58 Dose: 80 mg PHYSICAL EXAMINATION Vital Signs Temperature 97.5 F L 07/23/18 12:00 Pulse Rate 114 H 07/23/18 12:00 Respiratory Rate 22 H 07/23/18 12:00 Blood Pressure 110/71 07/23/18 12:00 O2 Sat by Pulse Oximetry (%) 92 L 07/23/18 08:00 GENERAL: Awake, seems alert HEAD: Microcephalic, atraumatic. EYES: PERRL, no scleral icterus EARS, NOSE, THROAT: oropharynx clear without exudates. Moist mucous membranes. NECK: supple without lymphadenopathy LUNGS: Poor inspiratory effort, course breath sounds HEART: Regular rate and rhythm, normal S1 and S2 without murmur ABDOMEN: Soft, nontender to palpation, normoactive bowel sounds, rafal cap in place without erythema or drainage MUSCULOSKELETAL: Contracted Extremities EXTREMITIES: 2+ pulses, warm, well-perfused. SKIN: Warm, dry, no rashes or lesions noted anywhere Neuro: Awake, limited movements, no seizure like activity, responds to tactile stimulation CBCD WBC 4.1 K/mm3 (4.0-10.0) 07/23/18 09:30 RBC 4.26 M/mm3 (4.00-5.60) 07/23/18 09:30 Hgb 12.4 GM/dL (11.7-16.9) 07/23/18 09:30 Hct 36.6 % (35.4-49) D 07/23/18 09:30 MCV 86.1 fl (80-96) 07/23/18 09:30 MCHC 33.9 g/dl (32.0-35.9) 07/23/18 09:30 RDW 15.6 % (11.9-15.9) 07/23/18 09:30 Plt Count 189 K/MM3 (134-434) 07/23/18 09:30 MPV 8.6 fl (7.5-11.1) 07/23/18 09:30 CMP Sodium 141 mmol/L (136-145) 07/23/18 09:30 Potassium 3.5 mmol/L (3.5-5.1) 07/23/18 09:30 Chloride 105 mmol/L (98-107) 07/23/18 09:30 Carbon Dioxide 29 mmol/L (21-32) 07/23/18 09:30 Anion Gap 7 MMOL/L (8-16) L 07/23/18 09:30 BUN 6 mg/dL (7-18) L 07/23/18 09:30 Creatinine 0.5 mg/dL (0.55-1.3) L 07/23/18 09:30 Creat Clearance w eGFR > 60 (>60) 07/23/18 09:30 Random Glucose 90 mg/dL (74-106) 07/23/18 09:30 Calcium 8.7 mg/dL (8.5-10.1) 07/23/18 09:30 Total Bilirubin 0.4 mg/dL (0.2-1) 07/22/18 05:30 AST 44 U/L (15-37) H 07/22/18 05:30 ALT 166 U/L (13-61) H 07/22/18 05:30 Alkaline Phosphatase 149 U/L (45-117) H 07/22/18 05:30 Total Protein 6.9 g/dl (6.4-8.2) 07/22/18 05:30 Albumin 2.9 g/dl (3.4-5.0) L 07/22/18 05:30 CARDIAC ENZYMES Troponin I < 0.02 ng/ml (0.00-0.05) 07/21/18 14:51 Diagnostics: CXRAY -completed Head CT - completed Chest CT - completed ASSESSMENT/PLAN: 37 yo Male with PMH of congenital quadriplegia, epilepsy, Pt admitted from [facility] after being noticed with more congestion than normal with some bradycardia, hypotension and hypothermia on day of admission. Paperwork sent with patient indicates he was requiring increased use of his asthma medication and was more lethargic than normal with some bradycardia. Pt is nonverbal though supposedly at baseline will interact some with some babbling. LP performed to r/o meningitis in ER, CSF studies reviewed, 7 then 2 wbc in tubes, RBCs noted, normal glucose, near normal protein. ID note reviewed. Patient with reported seizure like activity per ER conversation, advised to increase Keppra to 500mg twice daily from 250mg. Underlying infection can lower seizure threshold and being managed medically. In ICU care under sepsis protocol. Can continue remaining seizure medications at same dose. If further events would consider increase Keppra to 750 bid. Is also getting ativan if needed. Discussed with nurse at bedside, no new neurologic events or abnormal motor activity. ID following, note reviewed. Remains on Abx as below. Continue medical optimization critical care time 35 mins.
[2018-07-23] MEDS ORDERED: POTASSIUM CHLORIDE ORAL LIQUID 20 MEQ/15 ML PO ONE (12:24)
[2018-07-23 15:21] VITALS: BMI 22.9
[2018-07-23] MEDS: lamoTRIgine 100 MG TABLET (FP) PO SCH (16:30)
[2018-07-23] MEDS ORDERED: AMOX TR/POT CLAV 500MG/125MG TABLETS (FP) PO SCH (17:30)
[2018-07-23] MEDS: lamoTRIgine 100 MG TABLET (FP) GT SCH (21:26)
[2018-07-24] MEDS ORDERED: PIPERACILLIN/TAZOBACTAM 3.375 GM VIAL IVPB ONE ×3 (01:24→16:58)
[2018-07-24] MEDS ORDERED: DEXTROSE 5%-WATER - 50 ML IVPB ONE ×2 (01:24→08:30)
[2018-07-24] MEDS: PIPERACILLIN/TAZOB 3.375 GM 3.375 GM in DEXTROSE 5%-WATER - 50 ML IVPB SCH ×3 (01:27→17:00)
[2018-07-24 06:07] LABS: HEMATOCRIT 43.2 % (35.4-49); HEMOGLOBIN 13.8 GM/dL (11.7-16.9); MCH 27.7 pg (25.7-33.7); MCHC 32.1 g/dl (32.0-35.9); MEAN CELL VOLUME 86.4 fl (80-96); MEAN PLT VOLUME 8.5 fl (7.5-11.1); PLATELET COUNT 192 K/MM3 (134-434); RDW 15.6 % (11.9-15.9); WHITE BLOOD COUNT 4.3 K/mm3 (4.0-10.0)
[2018-07-24 06:27] LABS: ALBUMIN 3.3 g/dl (3.4-5.0); ALK PHOS 163 U/L (45-117); ANION GAP 7 MMOL/L (8-16); BILIRUBIN,TOTAL 0.3 mg/dL (0.2-1); BLOOD UREA NITROGEN 8 mg/dL (7-18); CALCIUM 8.9 mg/dL (8.5-10.1); CHLORIDE 103 mmol/L (98-107); CO2 29 mmol/L (21-32); CREATININE 0.5 mg/dL (0.55-1.3); GLUCOSE,RANDOM 66 mg/dL (74-106); POTASSIUM 4.1 mmol/L (3.5-5.1); SGOT/AST 34 U/L (15-37); SGPT/ALT 134 U/L (13-61); SODIUM 139 mmol/L (136-145); TOT PROT 7.3 g/dl (6.4-8.2)
[2018-07-24] MEDS: ALBUTEROL SO4 2.5/IPRATROPIUM 0.5 INH SOL 3 ML VIAL.NEB. NEB PRN ×2 (07:25→21:20)
[2018-07-24] MEDS ORDERED: PT OWN MED DRAWER 7, Y5N ONE ×3 (08:30→22:20)
[2018-07-24] MEDS: levETIRAcetam 500 MG/5 ML INJECTION VIAL IVPB SCH ×2 (09:03→22:21)
[2018-07-24] MEDS: MAGNESIUM HYDROX 2400MG/30ML ORAL SUSPENSION 30 ML CUP GT SCH (09:03)
[2018-07-24] MEDS: POLYETHYLENE GLYCOL 3350 119 GM BTL GT SCH (09:03)
[2018-07-24] MEDS: cloBAZam 10 MG TABLET GT SCH ×2 (09:03→22:24)
[2018-07-24] MEDS: diazePAM 2 MG TABLET GT SCH ×2 (09:05→22:22)
[2018-07-24] MEDS: LAMOTRIGINE PO SCH (09:05)
[2018-07-24] MEDS: FOLIC ACID 1 MG TABLET (FP) GT SCH (09:06)
[2018-07-24] MEDS: LORATADINE 10 MG TABLET GT SCH (09:06)
[2018-07-24] MEDS: ENOXAPARIN NA (PORCINE) 40 MG/0.4 ML DISP.SYRIN SQ SCH (09:06)
[2018-07-24] MEDS: AZITHROMYCIN IVPB 500 MG/250 ML BAG IVPB SCH (09:08)
[2018-07-24] MEDS: ASCORBIC ACID 500 MG/5 ML UNIT DOSE CUP GT SCH ×2 (09:10→22:21)
[2018-07-24] MEDS: SIMETHICONE 40 MG/0.6 ML BOTTLE GT SCH ×4 (09:11→22:21)
[2018-07-24] MEDS: MULTIVIT-MINERALS ORAL LIQUID GT SCH (09:11)
--- NOTE | 2018-07-24 09:50 | PN ---
Progress Note (short form) - Note Progress Note: Neurology HISTORY OF PRESENT ILLNESS: 37 yo Male with PMH of congenital quadriplegia, epilepsy, Pt admitted from [facility] after being noticed with more congestion than normal with some bradycardia, hypotension and hypothermia on day of admission. Paperwork sent with patient indicates he was requiring increased use of his asthma medication and was more lethargic than normal with some bradycardia. Pt is nonverbal though supposedly at baseline will interact some with some babbling. LP performed to r/o meningitis in ER, CSF studies reviewed, 7 then 2 wbc in tubes, RBCs noted, normal glucose, near normal protein. ID note reviewed. Patient with reported seizure like activity per ER conversation, advised to increase Keppra to 500mg twice daily from 250mg. Underlying infection can lower seizure threshold and being managed medically. In ICU care under sepsis protocol. Discussed with nurse at bedside, no new neurologic events or abnormal motor activity. No seizures, comfortable appearing and without distress. Remains on Abx as below. Allergies Allergy/AdvReac Type Severity Reaction Status Date / Time No Known Allergies Allergy Verified 07/21/18 14:14 Active Medications Albuterol/Ipratropium (Duoneb -) 1 amp NEB Q6H PRN PRN Reason: SHORTNESS OF BREATH Last Admin: 07/24/18 07:25 Dose: 1 amp Ascorbic Acid (Vitamin C Oral Solution -) 500 mg GT BID [facility] Last Admin: 07/24/18 09:10 Dose: 500 mg Bisacodyl (Dulcolax Suppository -) 10 mg RC DAILY PRN PRN Reason: CONSTIPATION Clobazam (Onfi -) 10 mg GT BID [facility] Last Admin: 07/24/18 09:03 Dose: 10 mg Diazepam (Valium -) 2 mg GT BID [facility] Last Admin: 07/24/18 09:05 Dose: 2 mg Diazepam (Diastat Rectal Gel -) 10 mg RC DAILY PRN PRN Reason: Seizure Enoxaparin Sodium (Lovenox -) 40 mg SQ DAILY [facility] Last Admin: 07/24/18 09:06 Dose: 40 mg Folic Acid (Folic Acid -) 1 mg GT DAILY [facility] Last Admin: 07/24/18 09:06 Dose: 1 mg Azithromycin (Zithromax 500mg Ivpb (Pre-Docked)) 500 mg in 250 mls @ 250 mls/ hr IVPB DAILY [facility] Last Admin: 07/24/18 09:08 Dose: 250 mls/hr Piperacillin Sod/Tazobactam (Sod 3.375 gm/ Dextrose) 50 mls @ 100 mls/hr IVPB Q8H-IV [facility]; Protocol Last Admin: 07/24/18 09:07 Dose: 100 mls/hr Lamotrigine (Lamictal -) 150 mg PO DAILY@1600 [facility] Last Admin: 07/23/18 16:30 Dose: 150 mg Lamotrigine (Lamictal -) 150 mg GT DAILY@2000 [facility] Last Admin: 07/23/18 21:26 Dose: 150 mg Lamotrigine 100 mg/ (Lamotrigine 75 mg) 175 mg PO DAILY [facility] Last Admin: 07/24/18 09:05 Dose: 175 mg Levetiracetam (Keppra Injection -) 500 mg IVPB BID [facility] Last Admin: 07/24/18 09:03 Dose: 500 mg Loratadine (Claritin -) 10 mg GT DAILY [facility] Last Admin: 07/24/18 09:06 Dose: 10 mg Magnesium Hydroxide (Milk Of Magnesia -) 30 ml GT DAILY [facility] Last Admin: 07/24/18 09:03 Dose: 30 ml Polyethylene Glycol (Miralax (For Daily Use) -) 17 gm GT DAILY [facility] Last Admin: 07/24/18 09:03 Dose: 17 gm Simethicone (Mylicon Liquid -) 80 mg GT QID [facility] Last Admin: 07/24/18 09:11 Dose: 80 mg PHYSICAL EXAMINATION Vital Signs Period Temp Pulse Resp BP Sys/Osullivan Pulse Ox Last 24 Hr 97.1 F-98.8 F 82-116 18-23 108-168/69-101 92-93 GENERAL: Awake, seems alert HEAD: Microcephalic, atraumatic. EYES: PERRL, no scleral icterus EARS, NOSE, THROAT: oropharynx clear without exudates. Moist mucous membranes. NECK: supple without lymphadenopathy LUNGS: Poor inspiratory effort, course breath sounds HEART: Regular rate and rhythm, normal S1 and S2 without murmur ABDOMEN: Soft, nontender to palpation, normoactive bowel sounds, rafal cap in place without erythema or drainage MUSCULOSKELETAL: Contracted Extremities EXTREMITIES: 2+ pulses, warm, well-perfused. SKIN: Warm, dry, no rashes or lesions noted anywhere Neuro: Awake, limited movements, no seizure like activity, responds to tactile stimulation CBCD WBC 4.3 K/mm3 (4.0-10.0) 07/24/18 05:15 RBC 5.00 M/mm3 (4.00-5.60) 07/24/18 05:15 Hgb 13.8 GM/dL (11.7-16.9) 07/24/18 05:15 Hct 43.2 % (35.4-49) D 07/24/18 05:15 MCV 86.4 fl (80-96) 07/24/18 05:15 MCHC 32.1 g/dl (32.0-35.9) 07/24/18 05:15 RDW 15.6 % (11.9-15.9) 07/24/18 05:15 Plt Count 192 K/MM3 (134-434) 07/24/18 05:15 MPV 8.5 fl (7.5-11.1) 07/24/18 05:15 CMP Sodium 139 mmol/L (136-145) 07/24/18 05:15 Potassium 4.1 mmol/L (3.5-5.1) 07/24/18 05:15 Chloride 103 mmol/L (98-107) 07/24/18 05:15 Carbon Dioxide 29 mmol/L (21-32) 07/24/18 05:15 Anion Gap 7 MMOL/L (8-16) L 07/24/18 05:15 BUN 8 mg/dL (7-18) 07/24/18 05:15 Creatinine 0.5 mg/dL (0.55-1.3) L 07/24/18 05:15 Creat Clearance w eGFR > 60 (>60) 07/24/18 05:15 Random Glucose 66 mg/dL (74-106) L 07/24/18 05:15 Calcium 8.9 mg/dL (8.5-10.1) 07/24/18 05:15 Total Bilirubin 0.3 mg/dL (0.2-1) 07/24/18 05:15 AST 34 U/L (15-37) 07/24/18 05:15 ALT 134 U/L (13-61) H 07/24/18 05:15 Alkaline Phosphatase 163 U/L (45-117) H 07/24/18 05:15 Total Protein 7.3 g/dl (6.4-8.2) 07/24/18 05:15 Albumin 3.3 g/dl (3.4-5.0) L 07/24/18 05:15 CARDIAC ENZYMES Troponin I < 0.02 ng/ml (0.00-0.05) 07/21/18 14:51 Diagnostics: CXRAY -completed Head CT - completed Chest CT - completed ASSESSMENT/PLAN: 37 yo Male with PMH of congenital quadriplegia, epilepsy, Pt admitted from [facility] after being noticed with more congestion than normal with some bradycardia, hypotension and hypothermia on day of admission. Paperwork sent with patient indicates he was requiring increased use of his asthma medication and was more lethargic than normal with some bradycardia. Pt is nonverbal though supposedly at baseline will interact some with some babbling. LP performed to r/o meningitis in ER, CSF studies reviewed, 7 then 2 wbc in tubes, RBCs noted, normal glucose, near normal protein. ID note reviewed. Patient with reported seizure like activity per ER conversation, advised to increase Keppra to 500mg twice daily from 250mg. Underlying infection can lower seizure threshold and being managed medically. In ICU care under sepsis protocol. Can continue remaining seizure medications at same dose. If further events would consider increase Keppra to 750 bid. Is also getting ativan if needed. Discussed with nurse at bedside, no new neurologic events or abnormal motor activity. Has been seizure free. ID following, note reviewed, Abx as required. Continue medical optimization critical care time 35 mins.
--- NOTE | 2018-07-24 12:22 | PN ---
Teaching Attending Note Name of Resident: Atiya Jarquin ATTENDING PHYSICIAN STATEMENT I saw and evaluated the patient. I reviewed the resident's note and discussed the case with the resident. I agree with the resident's findings and plan as documented. SUBJECTIVE: Patient and examined in the ICU. No witnessed seizures overnight Intake & Output 07/21/18 07/22/18 07/23/18 07/24/18 23:59 23:59 23:59 23:59 Intake Total 1370 1610 580 Output Total 325 1650 300 Balance 1045 -40 280 Weight 102 lb 3.2 oz 106 lb 106 lb 3.2 oz Last Vital Signs Temp Pulse Resp BP Pulse Ox 97.9 F 100 H 18 136/91 93 L 07/24/18 06:00 07/24/18 08:00 07/24/18 08:00 07/24/18 08:00 07/24/18 08:00 Active Medications Albuterol/Ipratropium (Duoneb -) 1 amp NEB Q6H PRN PRN Reason: SHORTNESS OF BREATH Last Admin: 07/24/18 07:25 Dose: 1 amp Ascorbic Acid (Vitamin C Oral Solution -) 500 mg GT BID [facility] Last Admin: 07/24/18 09:10 Dose: 500 mg Bisacodyl (Dulcolax Suppository -) 10 mg RC DAILY PRN PRN Reason: CONSTIPATION Clobazam (Onfi -) 10 mg GT BID [facility] Last Admin: 07/24/18 09:03 Dose: 10 mg Diazepam (Valium -) 2 mg GT BID [facility] Last Admin: 07/24/18 09:05 Dose: 2 mg Diazepam (Diastat Rectal Gel -) 10 mg RC DAILY PRN PRN Reason: Seizure Enoxaparin Sodium (Lovenox -) 40 mg SQ DAILY [facility] Last Admin: 07/24/18 09:06 Dose: 40 mg Folic Acid (Folic Acid -) 1 mg GT DAILY [facility] Last Admin: 07/24/18 09:06 Dose: 1 mg Azithromycin (Zithromax 500mg Ivpb (Pre-Docked)) 500 mg in 250 mls @ 250 mls/ hr IVPB DAILY [facility] Last Admin: 07/24/18 09:08 Dose: 250 mls/hr Piperacillin Sod/Tazobactam (Sod 3.375 gm/ Dextrose) 50 mls @ 100 mls/hr IVPB Q8H-IV [facility]; Protocol Last Admin: 07/24/18 09:07 Dose: 100 mls/hr Lamotrigine (Lamictal -) 150 mg PO DAILY@1600 [facility] Last Admin: 07/23/18 16:30 Dose: 150 mg Lamotrigine (Lamictal -) 150 mg GT DAILY@2000 [facility] Last Admin: 07/23/18 21:26 Dose: 150 mg Lamotrigine 100 mg/ (Lamotrigine 75 mg) 175 mg PO DAILY [facility] Last Admin: 07/24/18 09:05 Dose: 175 mg Levetiracetam (Keppra Injection -) 500 mg IVPB BID [facility] Last Admin: 07/24/18 09:03 Dose: 500 mg Loratadine (Claritin -) 10 mg GT DAILY [facility] Last Admin: 07/24/18 09:06 Dose: 10 mg Magnesium Hydroxide (Milk Of Magnesia -) 30 ml GT DAILY [facility] Last Admin: 07/24/18 09:03 Dose: 30 ml Polyethylene Glycol (Miralax (For Daily Use) -) 17 gm GT DAILY [facility] Last Admin: 07/24/18 09:03 Dose: 17 gm Simethicone (Mylicon Liquid -) 80 mg GT QID [facility] Last Admin: 07/24/18 09:11 Dose: 80 mg Exam: General: NAD Pulm: Few bilateral Cv: S1, S2 Abd: Soft, non-tender Ext: contracted, WWP, trace edema Neuro: non verbal, eye open and tracking Laboratory Results - last 24 hr 07/24/18 07/24/18 05:15 05:15 WBC 4.3 RBC 5.00 Hgb 13.8 Hct 43.2 D MCV 86.4 MCH 27.7 MCHC 32.1 RDW 15.6 Plt Count 192 MPV 8.5 Sodium 139 Potassium 4.1 Chloride 103 Carbon Dioxide 29 Anion Gap 7 L BUN 8 Creatinine 0.5 L Creat Clearance w eGFR > 60 Random Glucose 66 L Calcium 8.9 Total Bilirubin 0.3 AST 34 ALT 134 H Alkaline Phosphatase 163 H Total Protein 7.3 Albumin 3.3 L All Active Problems Bradycardia (Acute) Hypotension (Acute) Pneumonia (Acute) SIRS (systemic inflammatory response syndrome) (Acute) Hypothermia (Chronic) Femur fracture, right (Acute) Hypoxia (Acute) Elevated liver enzymes (Chronic) Hypertension (Chronic) Seizure disorder (Chronic) - O2 for sat >90% - pulmonary toilet - ABX transition to augmention PO - cont AED: keppra, lamictal, onfi, valium - send urine antigens and flu swab - follow up cultures - DVT prophylaxis - TFs and bowel regimen - Transfer to floor Dr Arteaga
--- NOTE | 2018-07-24 15:27 | PN ---
Physical Exam: SUBJECTIVE: Patient seen and examined this AM. He is much more alert than on admission and responds to verbal stimuli and tracks around room. Smiles during exam OBJECTIVE: Vital Signs Period Temp Pulse Resp BP Sys/Osullivan Pulse Ox Last 24 Hr 97.1 F-98.8 F 82-116 17-23 108-168/69-101 92-93 GENERAL: Awake, seems alert HEAD: Microcephalic, atraumatic. EYES: PERRL, no scleral icterus EARS, NOSE, THROAT: oropharynx clear without exudates. Moist mucous membranes. NECK: supple without lymphadenopathy LUNGS: Poor inspiratory effort, course breath sounds HEART: Regular rate and rhythm, normal S1 and S2 without murmur ABDOMEN: Soft, nontender to palpation, normoactive bowel sounds, rafal cap in place without erythema or drainage MUSCULOSKELETAL: Contracted Extremities EXTREMITIES: 2+ pulses, warm, well-perfused. SKIN: Warm, dry, no rashes or lesions noted anywhere Laboratory Results - last 24 hr 07/24/18 07/24/18 05:15 05:15 WBC 4.3 RBC 5.00 Hgb 13.8 Hct 43.2 D MCV 86.4 MCH 27.7 MCHC 32.1 RDW 15.6 Plt Count 192 MPV 8.5 Sodium 139 Potassium 4.1 Chloride 103 Carbon Dioxide 29 Anion Gap 7 L BUN 8 Creatinine 0.5 L Creat Clearance w eGFR > 60 Random Glucose 66 L Calcium 8.9 Total Bilirubin 0.3 AST 34 ALT 134 H Alkaline Phosphatase 163 H Total Protein 7.3 Albumin 3.3 L Active Medications Generic Name Dose Route Start Last Admin Trade Name Freq PRN Reason Stop Dose Admin Albuterol/Ipratropium 1 amp 07/22/18 18:44 07/24/18 07:25 Duoneb - NEB 1 amp Q6H PRN Administration SHORTNESS OF BREATH Ascorbic Acid 500 mg 07/22/18 10:00 07/24/18 09:10 Vitamin C Oral Solution - GT 500 mg BID [facility] Administration Bisacodyl 10 mg 07/22/18 06:41 Dulcolax Suppository - RC DAILY PRN CONSTIPATION Clobazam 10 mg 07/21/18 22:00 07/24/18 09:03 Onfi - GT 10 mg BID [facility] Administration Diazepam 2 mg 07/21/18 22:00 07/24/18 09:05 Valium - GT 2 mg BID [facility] Administration Diazepam 10 mg 07/21/18 21:17 Diastat Rectal Gel - RC DAILY PRN Seizure Enoxaparin Sodium 40 mg 07/22/18 10:00 07/24/18 09:06 Lovenox - SQ 40 mg DAILY [facility] Administration Folic Acid 1 mg 07/22/18 10:00 07/24/18 09:06 Folic Acid - GT 1 mg DAILY [facility] Administration Azithromycin 500 mg in 250 mls @ 250 mls/hr 07/22/18 10:00 07/24/18 09:08 Zithromax 500mg Ivpb (Pre-Docked) IVPB 250 mls/hr DAILY [facility] Administration Piperacillin Sod/Tazobactam 50 mls @ 100 mls/hr 07/23/18 11:15 07/24/18 09:07 Sod 3.375 gm/ Dextrose IVPB 100 mls/hr Q8H-IV [facility] Administration Protocol Lamotrigine 150 mg 07/22/18 16:00 07/23/18 16:30 Lamictal - PO 150 mg DAILY@1600 [facility] Administration Lamotrigine 150 mg 07/22/18 20:00 07/23/18 21:26 Lamictal - GT 150 mg DAILY@2000 [facility] Administration Lamotrigine 100 mg/ 175 mg 07/22/18 10:00 07/24/18 09:05 Lamotrigine 75 mg PO 175 mg DAILY [facility] Administration Levetiracetam 500 mg 07/22/18 10:00 07/24/18 09:03 Keppra Injection - IVPB 500 mg BID [facility] Administration Loratadine 10 mg 07/22/18 10:00 07/24/18 09:06 Claritin - GT 10 mg DAILY [facility] Administration Magnesium Hydroxide 30 ml 07/22/18 10:00 07/24/18 09:03 Milk Of Magnesia - GT 30 ml DAILY [facility] Administration Polyethylene Glycol 17 gm 07/22/18 10:00 07/24/18 09:03 Miralax (For Daily Use) - GT 17 gm DAILY [facility] Administration Simethicone 80 mg 07/22/18 10:00 07/24/18 09:11 Mylicon Liquid - GT 80 mg QID [facility] Administration ASSESSMENT/PLAN: 37 yo Male with PMH of congenital quadriplegia, epilepsy, MR admitted from [facility] after being noticed with more congestion than normal with some bradycardia, hypotension and hypothermia SIRS with source currently unknown, likely respiratory in nature -Hypotensive, Hypothermic, improved -Saturating well on home O2 -UA negative, CSF studies unremarkable, cultures negative, blood c/s negative -IV Zosyn/Azythromycin -Chest CT with right middle lobe consolidation, bibasilar infiltrate, and mucus seen in trachea and upper airway -Viral PCR negative -Urine legionella/pneumo antigens negative Epilepsy -Continue home antiseizure medications with exception noted below -Lamictal/Keppra/Valium -Diastat PRN -Case discussed with neurology, recommended increasing Keppra to 500 mg BID, with further increased if continued breakthrough seizures Transaminitis -Has been worked up in the past but above baseline -RUQ US with cholelithiasis but no signs of cholecystitis -Trend CMP, LFTs improving DVT Prophylaxis -Lovenox 40 mg SQ Daily FEN -Fluids: none -Electrolytes: No electrolyte abnormalities, CMP in AM -Nutrition: Restarting feeds Disposition Telemetry Visit type - Emergency Visit Emergency Visit: Yes ED Registration Date: 07/21/18 Care time: The patient presented to the Emergency Department on the above date and was hospitalized for further evaluation of their emergent condition. - New Patient This patient is new to me today: No - Critical Care Critical Care patient: No
--- NOTE | 2018-07-24 16:15 | PN ---
Progress Note (short form) - Note Progress Note: SUBJECTIVE Patient seen and examined at the bedside. No acute events overnight OBJECTIVE Vital Signs Temperature 98.0 F 07/24/18 12:00 Pulse Rate 95 H 07/24/18 12:00 Respiratory Rate 18 07/24/18 12:00 Blood Pressure 115/86 07/24/18 12:00 O2 Sat by Pulse Oximetry (%) 93 L 07/24/18 08:00 General: Awake, alert, tracking with eyes Head: No signs of trauma Eyes: EOMI, sclera anicteric ENT: Moist mucus membranes Neck: Supple Lungs: Expiratory rhonchi present Cardio: Regular rhythm, S1 and S2 present Abdomen: Soft, nondistended, rafal cap in place. Extremities: Limbs contracted, Distal pulses present SKIN: Warm, Dry, normal turgor Neurologic: Quadriplegia, nonverbal, smiling ASSESSMENT 37yo M with PMH congenital quadriplegia, MR, epilepsy coming from [facility] with bradycardia, hypotension, hypothermia, lethargy, and increased use of asthma meds. Admission for SIRS with pneumonia. PLAN Plan for transfer from the ICU Neuro Seizure disorder -Keppra, Lamictal, Onfi, Valium -If breakthrough seizure occurs, consider increasing Keppra to 750mg per Neuro Pulmonary Pneumonia -Zosyn, Zithromax Hypoxia: O2 for Sat >90% Cardio Bradycardia Hypotension in setting of sepsis ID SIRS Send urine Ag Flu negative Follow-up cultures GI Chronic elevated liver enzymes -levels trending down, AST=34, KIA=[id number]
[2018-07-24] MEDS: lamoTRIgine 100 MG TABLET (FP) PO SCH (16:16)
--- NOTE | 2018-07-24 17:29 | PN ---
Progress Note (short form) - Note Progress Note: transferred from ICU comfortable Vital Signs Period Temp Pulse Resp BP Sys/Osullivan Pulse Ox Last 24 Hr 97.9 F-98.8 F 82-104 17-23 108-168/72-101 92-96 cor-rrr lungs clear abd soft,nt ext no edema CBC, BMP 07/24/18 05:15 07/24/18 05:15 Microbiology 07/21/18 14:51 Blood - Peripheral Venous Blood Culture - Preliminary NO GROWTH OBTAINED AFTER 72 HOURS, INCUBATION TO CONTINUE FOR 2 DAYS. 07/21/18 14:51 Blood - Peripheral Venous Blood Culture - Preliminary NO GROWTH OBTAINED AFTER 72 HOURS, INCUBATION TO CONTINUE FOR 2 DAYS. 07/21/18 17:25 Cerebral Spinal Fluid - Lumbar Puncture Gram Stain - Final 07/21/18 17:25 Cerebral Spinal Fluid - Lumbar Puncture CSF Culture - Final 07/22/18 12:30 Nasopharyngeal Swab Respiratory Virus (PCR) - Preliminary 07/22/18 20:28 Urine For Antigen Detection Legionella Antigen - Final 07/22/18 20:28 Urine For Antigen Detection Streptococcus pneumoniae Antigen (M - Final 07/21/18 15:52 Urine - Urine - Catheterized Urine Culture - Final NO GROWTH OBTAINED cxray-improved a/p pneumonia- ?aspiration ?viral day #3 zosyn/zithromax send resp virus PCR switch to po augmentin in am to complete 7 days influenza/rsv antigens are negative seizure disorder abnl LFTS- trending down- would trend for now Problem List - Problems (1) Pneumonia Code(s): J18.9 - PNEUMONIA, UNSPECIFIED ORGANISM (2) Seizure disorder Code(s): G40.909 - EPILEPSY, UNSP, NOT INTRACTABLE, WITHOUT STATUS EPILEPTICUS (3) Liver function test abnormality Code(s): R79.89 - OTHER SPECIFIED ABNORMAL FINDINGS OF BLOOD CHEMISTRY
--- NOTE | 2018-07-24 18:52 | PN ---
Teaching Attending Note Name of Resident: Cristian Torres ATTENDING PHYSICIAN STATEMENT I saw and evaluated the patient. I reviewed the resident's note and discussed the case with the resident. I agree with the resident's findings and plan as documented. SUBJECTIVE: Non-verbal OBJECTIVE: Afebrile/Hemodynamically Stable. Appears comfortable. Last Vital Signs Temp Pulse Resp BP Pulse Ox 98.0 F 95 H 18 126/82 96 07/24/18 16:49 07/24/18 16:49 07/24/18 16:49 07/24/18 16:49 07/24/18 16:49 HEENT - Atraumatic. Heart - S1, S2, RRR Lungs - good air entry bilaterally, coarse at bases Abdomen - PEG in situ without surrounding erythema. Soft, non-tender. Bowel Sounds normal. Extremities - No calf tenderness. Laboratory Results - last 24 hr 07/24/18 07/24/18 05:15 05:15 WBC 4.3 RBC 5.00 Hgb 13.8 Hct 43.2 D MCV 86.4 MCH 27.7 MCHC 32.1 RDW 15.6 Plt Count 192 MPV 8.5 Sodium 139 Potassium 4.1 Chloride 103 Carbon Dioxide 29 Anion Gap 7 L BUN 8 Creatinine 0.5 L Creat Clearance w eGFR > 60 Random Glucose 66 L Calcium 8.9 Total Bilirubin 0.3 AST 34 ALT 134 H Alkaline Phosphatase 163 H Total Protein 7.3 Albumin 3.3 L Current Medications Generic Name Dose Route Start Last Admin Trade Name Freq PRN Reason Stop Dose Admin Albuterol/Ipratropium 1 amp 07/22/18 18:44 07/24/18 07:25 Duoneb - NEB 1 amp Q6H PRN Administration SHORTNESS OF BREATH Ascorbic Acid 500 mg 07/22/18 10:00 07/24/18 09:10 Vitamin C Oral Solution - GT 500 mg BID TRINO Administration Bisacodyl 10 mg 07/22/18 06:41 Dulcolax Suppository - RC DAILY PRN CONSTIPATION Clobazam 10 mg 07/21/18 22:00 07/24/18 09:03 Onfi - GT 10 mg BID TRINO Administration Diazepam 2 mg 07/21/18 22:00 07/24/18 09:05 Valium - GT 2 mg BID TRINO Administration Diazepam 10 mg 07/21/18 21:17 Diastat Rectal Gel - RC DAILY PRN Seizure Enoxaparin Sodium 40 mg 07/22/18 10:00 07/24/18 09:06 Lovenox - SQ 40 mg DAILY TRINO Administration Folic Acid 1 mg 07/22/18 10:00 07/24/18 09:06 Folic Acid - GT 1 mg DAILY TRINO Administration Azithromycin 500 mg in 250 mls @ 250 mls/hr 07/22/18 10:00 07/24/18 09:08 Zithromax 500mg Ivpb (Pre-Docked) IVPB 250 mls/hr DAILY TRINO Administration Piperacillin Sod/Tazobactam 50 mls @ 100 mls/hr 07/23/18 11:15 07/24/18 17:00 Sod 3.375 gm/ Dextrose IVPB 100 mls/hr Q8H-IV TRINO Administration Protocol Lamotrigine 150 mg 07/22/18 16:00 07/24/18 16:16 Lamictal - PO 150 mg DAILY@1600 TRINO Administration Lamotrigine 150 mg 07/22/18 20:00 07/23/18 21:26 Lamictal - GT 150 mg DAILY@2000 TRINO Administration Lamotrigine 100 mg/ 175 mg 07/22/18 10:00 07/24/18 09:05 Lamotrigine 75 mg PO 175 mg DAILY TRINO Administration Levetiracetam 500 mg 07/22/18 10:00 07/24/18 09:03 Keppra Injection - IVPB 500 mg BID TRINO Administration Loratadine 10 mg 07/22/18 10:00 07/24/18 09:06 Claritin - GT 10 mg DAILY TRINO Administration Magnesium Hydroxide 30 ml 07/22/18 10:00 07/24/18 09:03 Milk Of Magnesia - GT 30 ml DAILY TRINO Administration Polyethylene Glycol 17 gm 07/22/18 10:00 07/24/18 09:03 Miralax (For Daily Use) - GT 17 gm DAILY TRINO Administration Simethicone 80 mg 07/22/18 10:00 07/24/18 16:59 Mylicon Liquid - GT 80 mg QID TRINO Administration ASSESSMENT AND PLAN: 37 year old Male from [facility], with PMH of congenital quadriplegia, HTN , epilepsy, MR admitted from [facility] after being noticed with more congestion than normal with some bradycardia, hypotension and hypothermia 1. Sepsis secondary to Pneumonia, likely aspiration Sepsis resolved. LP performed in ER to exclude meningitis. Chest CT with right middle lobe consolidation, bibasilar infiltrate, and mucus seen in trachea and upper airway Continue IV Zosyn/Azithromycin (Day 3) - for switch to Augmentin 07/25. Sputum Cx, Urine legionella/Strep Ag neg, Flu neg, RSV neg Wean down supplemental O2. PEG feeds resumed at low rate with slow up-titration. 2. Seizure Disorder with seizure activity reported in ED Continue Lamictal/Keppra/Valium/Clobazam. Keppra dose increased. 3. Transaminitis - chronic with acute spike, likely sec to Sepsis. Has been worked up in the past but AST/ALT above baseline, now improving. RUQ US with cholelithiasis but no signs of cholecystitis 4. HTN - normally on Amlodipine, HCTZ, Metoprolol - all held in context of sepsis and borderline BP, milady BB in context of Bradycardia - will monitor and reintroduce home anti-hypertensive meds slowly. DVT Px - Lovenox SQ
[2018-07-24] MEDS: lamoTRIgine 100 MG TABLET (FP) GT SCH (20:21)
[2018-07-25] MEDS ORDERED: PIPERACILLIN/TAZOBACTAM 3.375 GM VIAL IVPB ONE ×2 (01:27→09:32)
[2018-07-25] MEDS ORDERED: DEXTROSE 5%-WATER - 50 ML IVPB ONE ×2 (01:28→09:32)
[2018-07-25] MEDS: PIPERACILLIN/TAZOB 3.375 GM 3.375 GM in DEXTROSE 5%-WATER - 50 ML IVPB SCH ×2 (01:38→09:59)
[2018-07-25 09:17] LABS: HEMATOCRIT 40.2 % (35.4-49); HEMOGLOBIN 13.9 GM/dL (11.7-16.9); MCH 29.6 pg (25.7-33.7); MCHC 34.5 g/dl (32.0-35.9); MEAN CELL VOLUME 85.7 fl (80-96); MEAN PLT VOLUME 8.2 fl (7.5-11.1); PLATELET COUNT 206 K/MM3 (134-434); RBC 4.69 M/mm3 (4.00-5.60); RDW 15.8 % (11.9-15.9); WHITE BLOOD COUNT 4.7 K/mm3 (4.0-10.0)
--- NOTE | 2018-07-25 09:25 | PN ---
Progress Note (short form) - Note Progress Note: Neurology HISTORY OF PRESENT ILLNESS: 37 yo Male with PMH of congenital quadriplegia, epilepsy, Pt admitted from [facility] after being noticed with more congestion than normal with some bradycardia, hypotension and hypothermia on day of admission. Paperwork sent with patient indicates he was requiring increased use of his asthma medication and was more lethargic than normal with some bradycardia. Pt is nonverbal though supposedly at baseline will interact some with some babbling. LP performed to r/o meningitis in ER, CSF studies reviewed, 7 then 2 wbc in tubes, RBCs noted, normal glucose, near normal protein. ID note reviewed. Patient with reported seizure like activity per ER conversation, advised to increase Keppra to 500mg twice daily from 250mg. Underlying infection can lower seizure threshold and being managed medically. Discussed with nurse at bedside, no new neurologic events or abnormal motor activity. No seizures, comfortable appearing and without distress. Remains on Abx as below. Downgraded to floor from ICU, remains stable at this time. Allergies Allergy/AdvReac Type Severity Reaction Status Date / Time No Known Allergies Allergy Verified 07/21/18 14:14 Active Medications Albuterol/Ipratropium (Duoneb -) 1 amp NEB Q6H PRN PRN Reason: SHORTNESS OF BREATH Last Admin: 07/24/18 21:20 Dose: 1 amp Ascorbic Acid (Vitamin C Oral Solution -) 500 mg GT BID [facility] Last Admin: 07/24/18 22:21 Dose: 500 mg Bisacodyl (Dulcolax Suppository -) 10 mg RC DAILY PRN PRN Reason: CONSTIPATION Clobazam (Onfi -) 10 mg GT BID [facility] Last Admin: 07/24/18 22:24 Dose: 10 mg Diazepam (Valium -) 2 mg GT BID [facility] Last Admin: 07/24/18 22:22 Dose: 2 mg Diazepam (Diastat Rectal Gel -) 10 mg RC DAILY PRN PRN Reason: Seizure Enoxaparin Sodium (Lovenox -) 40 mg SQ DAILY [facility] Last Admin: 07/24/18 09:06 Dose: 40 mg Folic Acid (Folic Acid -) 1 mg GT DAILY [facility] Last Admin: 07/24/18 09:06 Dose: 1 mg Azithromycin (Zithromax 500mg Ivpb (Pre-Docked)) 500 mg in 250 mls @ 250 mls/ hr IVPB DAILY [facility] Last Admin: 07/24/18 09:08 Dose: 250 mls/hr Piperacillin Sod/Tazobactam (Sod 3.375 gm/ Dextrose) 50 mls @ 100 mls/hr IVPB Q8H-IV TRINO; Protocol Last Admin: 07/25/18 01:38 Dose: 100 mls/hr Lamotrigine (Lamictal -) 150 mg PO DAILY@1600 [facility] Last Admin: 07/24/18 16:16 Dose: 150 mg Lamotrigine (Lamictal -) 150 mg GT DAILY@2000 [facility] Last Admin: 07/24/18 20:21 Dose: 150 mg Lamotrigine 100 mg/ (Lamotrigine 75 mg) 175 mg PO DAILY [facility] Last Admin: 07/24/18 09:05 Dose: 175 mg Levetiracetam (Keppra Injection -) 500 mg IVPB BID [facility] Last Admin: 07/24/18 22:21 Dose: 500 mg Loratadine (Claritin -) 10 mg GT DAILY [facility] Last Admin: 07/24/18 09:06 Dose: 10 mg Magnesium Hydroxide (Milk Of Magnesia -) 30 ml GT DAILY [facility] Last Admin: 07/24/18 09:03 Dose: 30 ml Polyethylene Glycol (Miralax (For Daily Use) -) 17 gm GT DAILY [facility] Last Admin: 07/24/18 09:03 Dose: 17 gm Simethicone (Mylicon Liquid -) 80 mg GT QID [facility] Last Admin: 07/24/18 22:21 Dose: 80 mg PHYSICAL EXAMINATION Vital Signs Period Temp Pulse Resp BP Sys/Osullivan Pulse Ox Last 24 Hr 97.9 F-98.6 F 82-97 17-20 110-126/73-86 96-96 GENERAL: Awake, seems alert HEAD: Microcephalic, atraumatic. EYES: PERRL, no scleral icterus EARS, NOSE, THROAT: oropharynx clear without exudates. Moist mucous membranes. NECK: supple without lymphadenopathy LUNGS: Poor inspiratory effort, course breath sounds HEART: Regular rate and rhythm, normal S1 and S2 without murmur ABDOMEN: Soft, nontender to palpation, normoactive bowel sounds, rafal cap in place without erythema or drainage MUSCULOSKELETAL: Contracted Extremities EXTREMITIES: 2+ pulses, warm, well-perfused. SKIN: Warm, dry, no rashes or lesions noted anywhere Neuro: Awake, limited movements, no seizure like activity, responds to tactile stimulation CBCD WBC 4.3 K/mm3 (4.0-10.0) 07/24/18 05:15 RBC 5.00 M/mm3 (4.00-5.60) 07/24/18 05:15 Hgb 13.8 GM/dL (11.7-16.9) 07/24/18 05:15 Hct 43.2 % (35.4-49) D 07/24/18 05:15 MCV 86.4 fl (80-96) 07/24/18 05:15 MCHC 32.1 g/dl (32.0-35.9) 07/24/18 05:15 RDW 15.6 % (11.9-15.9) 07/24/18 05:15 Plt Count 192 K/MM3 (134-434) 07/24/18 05:15 MPV 8.5 fl (7.5-11.1) 07/24/18 05:15 CMP Sodium 139 mmol/L (136-145) 07/24/18 05:15 Potassium 4.1 mmol/L (3.5-5.1) 07/24/18 05:15 Chloride 103 mmol/L (98-107) 07/24/18 05:15 Carbon Dioxide 29 mmol/L (21-32) 07/24/18 05:15 Anion Gap 7 MMOL/L (8-16) L 07/24/18 05:15 BUN 8 mg/dL (7-18) 07/24/18 05:15 Creatinine 0.5 mg/dL (0.55-1.3) L 07/24/18 05:15 Creat Clearance w eGFR > 60 (>60) 07/24/18 05:15 Random Glucose 66 mg/dL (74-106) L 07/24/18 05:15 Calcium 8.9 mg/dL (8.5-10.1) 07/24/18 05:15 Total Bilirubin 0.3 mg/dL (0.2-1) 07/24/18 05:15 AST 34 U/L (15-37) 07/24/18 05:15 ALT 134 U/L (13-61) H 07/24/18 05:15 Alkaline Phosphatase 163 U/L (45-117) H 07/24/18 05:15 Total Protein 7.3 g/dl (6.4-8.2) 07/24/18 05:15 Albumin 3.3 g/dl (3.4-5.0) L 07/24/18 05:15 CARDIAC ENZYMES Troponin I < 0.02 ng/ml (0.00-0.05) 07/21/18 14:51 Diagnostics: CXRAY -completed Head CT - completed Chest CT - completed ASSESSMENT/PLAN: 37 yo Male with PMH of congenital quadriplegia, epilepsy, Pt admitted from [facility] after being noticed with more congestion than normal with some bradycardia, hypotension and hypothermia on day of admission. Paperwork sent with patient indicates he was requiring increased use of his asthma medication and was more lethargic than normal with some bradycardia. Pt is nonverbal though supposedly at baseline will interact some with some babbling. LP performed to r/o meningitis in ER, CSF studies reviewed, 7 then 2 wbc in tubes, RBCs noted, normal glucose, near normal protein. ID note reviewed. Patient with reported seizure like activity per ER conversation, advised to increase Keppra to 500mg twice daily from 250mg. Underlying infection can lower seizure threshold and being managed medically. Downgraded to floor from ICU. Can continue remaining seizure medications at same dose. If further events would consider increase Keppra to 750 bid. Is also getting ativan if needed. Discussed with nurse at bedside, no new neurologic events or abnormal motor activity. Has been seizure free. ID following, note reviewed, Abx treatment ongoing.
[2018-07-25] MEDS ORDERED: PT OWN MED DRAWER 7, Y5N ONE (09:31)
[2018-07-25] MEDS: MULTIVIT-MINERALS ORAL LIQUID GT SCH (09:54)
[2018-07-25] MEDS: LAMOTRIGINE PO SCH (09:55)
[2018-07-25] MEDS: levETIRAcetam 500 MG/5 ML INJECTION VIAL IVPB SCH (09:55)
[2018-07-25] MEDS: diazePAM 2 MG TABLET GT SCH (09:55)
[2018-07-25] MEDS: SIMETHICONE 40 MG/0.6 ML BOTTLE GT SCH ×3 (09:56→17:13)
[2018-07-25] MEDS: ENOXAPARIN NA (PORCINE) 40 MG/0.4 ML DISP.SYRIN SQ SCH (09:56)
[2018-07-25] MEDS: POLYETHYLENE GLYCOL 3350 119 GM BTL GT SCH (09:56)
[2018-07-25] MEDS: MAGNESIUM HYDROX 2400MG/30ML ORAL SUSPENSION 30 ML CUP GT SCH (09:56)
[2018-07-25] MEDS: LORATADINE 10 MG TABLET GT SCH (09:57)
[2018-07-25] MEDS: cloBAZam 10 MG TABLET GT SCH (09:57)
[2018-07-25] MEDS: ASCORBIC ACID 500 MG/5 ML UNIT DOSE CUP GT SCH (09:57)
[2018-07-25] MEDS: FOLIC ACID 1 MG TABLET (FP) GT SCH (09:58)
[2018-07-25] MEDS: AZITHROMYCIN IVPB 500 MG/250 ML BAG IVPB SCH (09:58)
[2018-07-25 10:23] LABS: ALBUMIN 3.2 g/dl (3.4-5.0); ALK PHOS 155 U/L (45-117); ANION GAP 8 MMOL/L (8-16); BILIRUBIN,TOTAL 0.3 mg/dL (0.2-1); BLOOD UREA NITROGEN 11 mg/dL (7-18); CALCIUM 9.1 mg/dL (8.5-10.1); CHLORIDE 104 mmol/L (98-107); CO2 29 mmol/L (21-32); CREATININE 0.6 mg/dL (0.55-1.3); GLUCOSE,RANDOM 95 mg/dL (74-106); POTASSIUM 4.1 mmol/L (3.5-5.1); SGOT/AST 26 U/L (15-37); SGPT/ALT 110 U/L (13-61); SODIUM 140 mmol/L (136-145); TOT PROT 7.1 g/dl (6.4-8.2)
[2018-07-25 15:00] VITALS: BP 127/82; PULSE 113; TEMP 98.5
--- NOTE | 2018-07-25 15:37 | PN ---
Teaching Attending Note Name of Resident: Cristian Torres ATTENDING PHYSICIAN STATEMENT I saw and evaluated the patient. I reviewed the resident's note and discussed the case with the resident. I agree with the resident's findings and plan as documented. SUBJECTIVE: Non-verbal. No further seizure activity as per Nursing. OBJECTIVE: Afebrile/Hemodynamically Stable. Appears comfortable. Last Vital Signs Temp Pulse Resp BP Pulse Ox 98.5 F 113 H 21 H 127/82 95 07/25/18 14:00 07/25/18 14:00 07/25/18 14:00 07/25/18 14:00 07/25/18 08:00 HEENT - Atraumatic. Heart - S1, S2, RRR Lungs - good air entry bilaterally, coarse at bases Abdomen - PEG in situ without surrounding erythema. Soft, non-tender. Bowel Sounds normal. Extremities - No calf tenderness. BIlateral LE wasting/contracture Laboratory Results - last 24 hr 07/21/18 07/21/18 07/25/18 17:25 17:41 09:00 WBC 4.7 RBC 4.69 Hgb 13.9 Hct 40.2 MCV 85.7 MCH 29.6 MCHC 34.5 RDW 15.8 Plt Count 206 MPV 8.2 Sodium Potassium Chloride Carbon Dioxide Anion Gap BUN Creatinine Creat Clearance w eGFR Random Glucose Calcium Total Bilirubin AST ALT Alkaline Phosphatase Total Protein Albumin Lamotrigine 11.7 HSV I DNA Quant (PCR) Negative HSV II DNA Quant (PCR) Negative 07/25/18 09:00 WBC RBC Hgb Hct MCV MCH MCHC RDW Plt Count MPV Sodium 140 Potassium 4.1 Chloride 104 Carbon Dioxide 29 Anion Gap 8 BUN 11 Creatinine 0.6 Creat Clearance w eGFR > 60 Random Glucose 95 Calcium 9.1 Total Bilirubin 0.3 AST 26 ALT 110 H Alkaline Phosphatase 155 H Total Protein 7.1 Albumin 3.2 L Lamotrigine HSV I DNA Quant (PCR) HSV II DNA Quant (PCR) Current Medications Generic Name Dose Route Start Last Admin Trade Name Freq PRN Reason Stop Dose Admin Albuterol/Ipratropium 1 amp 07/22/18 18:44 07/24/18 21:20 Duoneb - NEB 1 amp Q6H PRN Administration SHORTNESS OF BREATH Amoxicillin/Clavulanate Potassium 1 tab 07/25/18 17:30 Augmentin - 875mg Tablet PO BID@0800,1730 [facility] Ascorbic Acid 500 mg 07/22/18 10:00 07/25/18 09:57 Vitamin C Oral Solution - GT 500 mg BID TRINO Administration Bisacodyl 10 mg 07/22/18 06:41 Dulcolax Suppository - RC DAILY PRN CONSTIPATION Clobazam 10 mg 07/21/18 22:00 07/25/18 09:57 Onfi - GT 10 mg BID TRINO Administration Diazepam 2 mg 07/21/18 22:00 07/25/18 09:55 Valium - GT 2 mg BID TRINO Administration Diazepam 10 mg 07/21/18 21:17 Diastat Rectal Gel - RC DAILY PRN Seizure Enoxaparin Sodium 40 mg 07/22/18 10:00 07/25/18 09:56 Lovenox - SQ 40 mg DAILY TRINO Administration Folic Acid 1 mg 07/22/18 10:00 07/25/18 09:58 Folic Acid - GT 1 mg DAILY TRINO Administration Lamotrigine 150 mg 07/22/18 16:00 07/24/18 16:16 Lamictal - PO 150 mg DAILY@1600 TRINO Administration Lamotrigine 150 mg 07/22/18 20:00 07/24/18 20:21 Lamictal - GT 150 mg DAILY@2000 TRINO Administration Lamotrigine 100 mg/ 175 mg 07/22/18 10:00 07/25/18 09:55 Lamotrigine 75 mg PO 175 mg DAILY TRINO Administration Levetiracetam 500 mg 07/22/18 10:00 07/25/18 09:55 Keppra Injection - IVPB 500 mg BID TRINO Administration Loratadine 10 mg 07/22/18 10:00 07/25/18 09:57 Claritin - GT 10 mg DAILY TRINO Administration Magnesium Hydroxide 30 ml 07/22/18 10:00 07/25/18 09:56 Milk Of Magnesia - GT 30 ml DAILY TRINO Administration Polyethylene Glycol 17 gm 07/22/18 10:00 07/25/18 09:56 Miralax (For Daily Use) - GT 17 gm DAILY TRINO Administration Simethicone 80 mg 07/22/18 10:00 07/25/18 13:46 Mylicon Liquid - GT 80 mg QID TRINO Administration ASSESSMENT AND PLAN: 37 year old Male from [facility], with PMH of congenital quadriplegia, HTN , epilepsy, MR admitted with more congestion than normal with some bradycardia, hypotension and hypothermia 1. Sepsis secondary to Pneumonia, likely aspiration Sepsis resolved. LP performed in ER to exclude meningitis. Chest CT with right middle lobe consolidation, bibasilar infiltrate, and mucus seen in trachea and upper airway On IV Zosyn/Azithromycin (Day 4) - for switch to Augmentin 07/25 for total Abx course of 10 days. Sputum Cx, Urine legionella/Strep Ag neg, Flu neg, RSV neg Wean down supplemental O2. PEG feeds resumed at low rate with slow up-titration. Medically and Hemodynamically stable for discharge back to [facility] - Call placed to Dr. Huang for doc to doc hand-off. 2. Seizure Disorder with seizure activity reported in ED Continue Lamictal/Keppra/Valium/Clobazam. Keppra dose increased. 3. Transaminitis - chronic with acute spike, likely sec to Sepsis. Has been worked up in the past but ALT above baseline, now improving. RUQ US with cholelithiasis but no signs of cholecystitis 4. HTN - normally on Amlodipine, HCTZ, Metoprolol - all held in context of sepsis and borderline BP, milady BB in context of Bradycardia - will monitor and reintroduce home anti-hypertensive meds slowly as an out-patient. DVT Px - Lovenox SQ while in-patient
[2018-07-25] MEDS: lamoTRIgine 100 MG TABLET (FP) PO SCH (16:04)
--- NOTE | 2018-07-25 17:10 | DS ---
Physical Exam: SUBJECTIVE: Patient seen and examined this AM. He is much more alert than on admission and smiles throughout the encounter OBJECTIVE: Vital Signs Period Temp Pulse Resp BP Sys/Osullivan Pulse Ox Last 24 Hr 97.9 F-98.6 F 82-113 18-21 110-127/73-82 95-96 PHYSICAL EXAM GENERAL: Awake, seems alert HEAD: Microcephalic, atraumatic. EYES: PERRL, no scleral icterus EARS, NOSE, THROAT: oropharynx clear without exudates. Moist mucous membranes. NECK: supple without lymphadenopathy LUNGS: Poor inspiratory effort, course breath sounds, improving HEART: Regular rate and rhythm, normal S1 and S2 without murmur ABDOMEN: Soft, nontender to palpation, normoactive bowel sounds, rafal cap in place without erythema or drainage MUSCULOSKELETAL: Contracted Extremities EXTREMITIES: 2+ pulses, warm, well-perfused. SKIN: Warm, dry, no rashes or lesions noted anywhere LABS Laboratory Results - last 24 hr 07/21/18 07/21/18 07/25/18 17:25 17:41 09:00 WBC 4.7 RBC 4.69 Hgb 13.9 Hct 40.2 MCV 85.7 MCH 29.6 MCHC 34.5 RDW 15.8 Plt Count 206 MPV 8.2 Sodium Potassium Chloride Carbon Dioxide Anion Gap BUN Creatinine Creat Clearance w eGFR Random Glucose Calcium Total Bilirubin AST ALT Alkaline Phosphatase Total Protein Albumin Lamotrigine 11.7 Levetiracetam 22.8 HSV I DNA Quant (PCR) Negative HSV II DNA Quant (PCR) Negative 07/25/18 09:00 WBC RBC Hgb Hct MCV MCH MCHC RDW Plt Count MPV Sodium 140 Potassium 4.1 Chloride 104 Carbon Dioxide 29 Anion Gap 8 BUN 11 Creatinine 0.6 Creat Clearance w eGFR > 60 Random Glucose 95 Calcium 9.1 Total Bilirubin 0.3 AST 26 ALT 110 H Alkaline Phosphatase 155 H Total Protein 7.1 Albumin 3.2 L Lamotrigine Levetiracetam HSV I DNA Quant (PCR) HSV II DNA Quant (PCR) HOSPITAL COURSE: Date of Admission:07/21/18 Date of Discharge: 07/25/18 HPI on Admission: 37 yo Male with PMH of congenital quadriplegia, epilepsy, MR admitted from [facility] after being noticed with more congestion than normal with some bradycardia, hypotension and hypothermia. Paperwork sent with patient indicates he was requiring increased use of his asthma medication and was more lethargic than normal with some bradycardia. Pt is nonverbal though supposedly at baseline will interact some with some babbling. Hospital Course: He was initially Hypothermic, hypotensive, and bradycardic on admission but improved with fluids and a warming blanket. He was noted to have a breakthrough seizure in addition to his respiratory congestion. He was seen by neurology who recommended increasing Keppra from 250 mg GT BID to 500 mg GT BID. He was seen by ID and treated with Abx to cover for aspiration pneumonia and clinically improved. He was converted to Augmentin 875 mg BID for a 10 day total (6 more days). He was deemed medically safe for discharge to return to [facility]. Minutes to complete discharge: 40 Discharge Summary Reason For Visit: BRADYCARDIA HYPOTHERMIA HYPOTENSION SYSTEMIC INFLA Current Active Problems Bradycardia (Acute) Hypotension (Acute) Pneumonia (Acute) SIRS (systemic inflammatory response syndrome) (Acute) Hypothermia (Chronic) Condition: Stable - Instructions Diet, Activity, Other Instructions: You were admitted with some lung congestion and were found to likely have an aspiration pneumonia. You were given antibiotics. You will need to continue taking antibiotics: Augmentin 875mg twice a day, for 6 more days. You were noted to have a breakthrough seizure during your admission, likely secondary to the acute infection. You were seen by a neurologist who increased your Keppra from 250 mg BID to 500 mg BID. Otherwise no changes were made to your medications list. You required Oxygen therapy during your admission which you are still requiring however it will likely be able to be weaned off very soon. Referrals: Sean Huang Jr [Primary Care Provider] - Disposition: RESIDENTIAL FACILITY - Home Medications Comprehensive Discharge Medication List: Ambulatory Orders Acetaminophen 487.5 mg GT Q4HWA PRN 07/21/18 Amlodipine Besylate [Norvasc -] 5 mg GT DAILY 07/21/18 Ascorbate Calcium [Vitamin C] 500 mg GT BID 07/21/18 Bisacodyl Suppository [Dulcolax Suppository -] 10 mg RC ASDIR 07/21/18 Calcium 250Mg/Vit-D 125 Units [Oscal 250 mg+D -] 1 tab GT HS 07/21/18 Calcium 250Mg/Vit-D 125 Units [Oscal 250 mg+D -] 2 combo GT DAILY 07/21/18 Clobazam [Onfi -] 10 mg GT BID 07/21/18 Diazepam Rectal Gel [Diastat Rectal Gel -] 10 mg RC PRN 07/21/18 Diazepam [Valium] 2 mg GT BID 07/21/18 Ferrous Sulfate 220 mg GT HS 07/21/18 Folic Acid 1 mg GT DAILY 07/21/18 Hydrochlorothiazide [Hctz -] 25 mg PO DAILY 07/21/18 Ipratropium [place] [Atrovent Hfa] 2 spray IN BID 07/21/18 Lamotrigine [Lamictal] 150 mg GT HS 07/21/18 Lamotrigine [Lamictal] 175 mg GT BID 07/21/18 Loratadine 10 mg GT DAILY 07/21/18 Magnesium Hydrox 2400MG/30Ml [Milk of Magnesia -] 30 ml GT DAILY 07/21/18 Metoprolol Tartrate 75 mg GT BID 07/21/18 Minocycline HCl 100 mg GT DAILY 07/21/18 Mometasone Furoate [Asmanex 220Mcg -] 2 inh IH DAILY 07/21/18 Multivitamin/Iron/Folic Acid [Centrum Adults Tablet] 1 each GT DAILY 07/21/18 Pantoprazole Sodium [Protonix -] 40 mg GT DAILY 07/21/18 Polyethylene Glycol 3350 [Miralax 119 gm Btl -] 17 gm GT DAILY 07/21/18 Sennosides [Senna -] 1 tab GT BID 07/21/18 Simethicone 80 mg GT QID 07/21/18 Sodium Phosphate,Kendall-Dibasic [Fleet Enema] 133 ml RC ASDIR 07/21/18 Talc/Cellulos/Chloroxy/Aldioxa [Zeasorb Powder] 71 gm TP QID 07/21/18 Amox-Tr/K Cl [Augmentin 875-125mg Tablet -] 1 tab PO BID@0800,1730 6 Days tablet 07/25/18 levETIRAcetam [Keppra -] 500 mg GT BID #60 tablet 07/25/18 This patient is new to me today: No Emergency Visit: Yes ED Registration Date: 07/21/18 Care time: The patient presented to the Emergency Department on the above date and was hospitalized for further evaluation of their emergent condition. Critical Care patient: No - Discharge Referral Referred to [facility] Med P.C.: No
[2018-07-25] MEDS ORDERED: AMOX TR/POT CLAV 875MG/125MG TABLETS (FP) PO SCH (17:30)
[2018-07-25] MEDS: ALBUTEROL SO4 2.5/IPRATROPIUM 0.5 INH SOL 3 ML VIAL.NEB. NEB PRN (17:40)
== END 2018-07-25 18:47 | disposition home or self-care (01) | DRG 720 ==
LOC: JER 13:56 → SUPCPDRO 13:56 → JICU 17:57 → J6S 07-24 14:47
PROVIDERS: ADMIT Internal Medicine
PROC: 009U3ZX Drainage of Spinal Canal, Percutaneous Approach, Diagnostic (ICD-10-PCS; principal; 2018-07-21)
DX: A41.89 Other specified sepsis (principal); R68.0 Hypothermia, not associated with low environmental temperature; G80.8 Other cerebral palsy; J69.0 Pneumonitis due to inhalation of food and vomit; G40.909 Epilepsy, unspecified, not intractable, without status epilepticus; R79.89 Other specified abnormal findings of blood chemistry; I95.9 Hypotension, unspecified; F73 Profound intellectual disabilities; J96.00 Acute respiratory failure, unspecified whether with hypoxia or hypercapnia; R00.1 Bradycardia, unspecified; R74.0 Nonspecific elevation of levels of transaminase and lactic acid dehydrogenase [LDH]; I10 Essential (primary) hypertension; D72.819 Decreased white blood cell count, unspecified; G91.1 Obstructive hydrocephalus; M41.9 Scoliosis, unspecified
CPT/HCPCS: 36415; 70450-TC; 71045-TC-FY; 71250-TC; 76705-TC; 80048; 80053; 80175; 80177; 81003; 82803; 82945; 83605; 83735; 84100; 84157; 84443; 84484; 85025; 85027; 85610; 85730; 86644; 87040; 87070; 87086; 87205; 87529; 87633; 87804; 87807; 87899; 93005; 93010; 94640; 99284-25; J7030

== ENCOUNTER 2019-05-11 14:29 | Inpatient (IN) | payer OTHER ==
[2019-05-11] MEDS ORDERED: ALBUTEROL SO4 2.5/IPRATROPIUM 0.5 INH SOL 3 ML VIAL.NEB. NEB ONE ×2 (14:47→16:46)
--- NOTE | 2019-05-11 14:57 | PDOC ---
History of Present Illness - General Stated Complaint: ASTHMA Time Seen by Provider: 05/11/19 14:44 History Source: Care Provider, [facility] Records, Old Records Exam Limitations: Clinical Condition, Physical Impairment - History of Present Illness Initial Comments: 05/11/19 14:58 HPI 38 yo Male with PMH of congenital quadriplegia, epilepsy, MR admitted from [facility] presenting with shortness of breath, wheezing and increased nasal congestion. Pt is nonverbal though supposedly at baseline will interact some with some babbling. Information provided from [facility] records and bedside aide. Previously admitted earlier in the year 07/2018 for hypotension, hypothermia, bradycardia with breakthrough seizure and pneumonia, treated at that time aspiration pneumonia. At that time treated with augmentin. Per nurse at [facility], patient has been having upper respiratory infections and congestion x3 weeks, has been getting duo nebs every 4-6 hours as needed. No antibiotics have been given yet. This morning he was noted to have productive cough and congestion with increased secretions on suctioning of yellow mucus. He had doses of DuoNeb at 10 AM and 2 PM and then once via [facility] when they arrived. He is also been getting Robitussin for the cough. Today progressed to having wheezing. At baseline he is smiling in no acute distress which has been his status over this period of time. received albuterol-atrovent nebs via EMS x 1 dose. Review of systems limited 2/2 clinical condition Physical exam General: awake and alert, NAD. HEENT: NCAT, craniofacial deformity. nonverbal. PERRL, EOMI, clear conjunctiva , anicteric, moist mucus membranes, clear oropharynx, no oral lesions.. Neck: neck supple, FROM Resp: mild respiratory distress, bilateral diffuse rhonchi and wheezing CVS: RRR, no murmurs, 2+ peripheral pulses throughout, no peripheral edema Abdomen: soft, protuberant, nontender. Back: nontender, normal inspection and ROM MSK: no edema, RALPH x4, ROM intact. contracted in all extremities, increased tone. Extremities: no calf tenderness Neuro: alert, awake, nonverbal Psych: Calm and cooperative Skin: warm and well perfused, cap refill <2 sec, normal color, no rash or skin discoloration. 05/11/19 16:23 Past History - Past Medical History Allergies/Adverse Reactions: Allergies Allergy/AdvReac Type Severity Reaction Status Date / Time No Known Allergies Allergy Verified 07/21/18 14:14 Home Medications: Ambulatory Orders Amlodipine Besylate [Norvasc -] 5 mg GT DAILY 07/21/18 Calcium 250Mg/Vit-D 125 Units [Oscal 250 mg+D -] 1 tab GT HS 07/21/18 Calcium 250Mg/Vit-D 125 Units [Oscal 250 mg+D -] 2 combo GT DAILY 07/21/18 Diazepam Rectal Gel [Diastat Rectal Gel -] 10 mg RC PRN 07/21/18 Diazepam [Valium] 2 mg GT BID 07/21/18 Ferrous Sulfate 220 mg GT HS 07/21/18 Folic Acid 1 mg GT DAILY 07/21/18 Hydrochlorothiazide [Hctz -] 25 mg PO DAILY 07/21/18 Magnesium Hydrox 2400MG/30Ml [Milk of Magnesia -] 30 ml GT DAILY 07/21/18 Metoprolol Tartrate 75 mg GT BID 07/21/18 Multivitamin/Iron/Folic Acid [Centrum Adults Tablet] 1 each GT DAILY 07/21/18 Polyethylene Glycol 3350 [Miralax 119 gm Btl -] 17 gm GT DAILY 07/21/18 Sennosides [Senna -] 1 tab GT BID 07/21/18 Talc/Cellulos/Chloroxy/Aldioxa [Zeasorb Powder] 71 gm TP QID 07/21/18 Albuterol 0.083% Nebulizer Michelle [Ventolin 0.083% Nebulizer Soln -] 1 neb NEB Q6H 05/11/19 Albuterol 2.5/Ipratropium 0.5 [Duoneb -] 1 neb IH QID 05/11/19 Benzoyl Peroxide 5% Gel - 1 applic TP HS 05/11/19 Cholecalciferol (Vitamin D3) [Vitamin D3] 1,000 unit PO HS 05/11/19 Erythromycin Base/Ethanol [Erythromycin 2% Solution] 60 ml TP BID 05/11/19 Fexofenadine HCl 60 mg PO BID 05/11/19 Fluticasone Propionate [Flovent Diskus] 50 mcg IH HS 05/11/19 Guaifenesin 100 mg PO TID 05/11/19 Ipratropium 0.02% Nebulizer [Atrovent 0.02% Nebulizer -] 1 amp NEB QID 05/11/19 Lamotrigine 100 mg GT TID 05/11/19 Lamotrigine [Lamictal Odt] 50 mg GT BID 05/11/19 Methylcellulose [Citrucel] 500 mg PO HS 05/11/19 Ranitidine HCl 150 mg GT DAILY 05/11/19 Sodium Chloride [Saline Mist] 44 ml NS HS 05/11/19 levETIRAcetam [Keppra -] 750 mg GT BID 05/11/19 Anemia: No Asthma: Yes Cancer: No Cardiac Disorders: No CVA: No COPD: No CHF: No Dementia: No Diabetes: No GI Disorders: No Disorders: No HTN: Yes Hypercholesterolemia: No Liver Disease: No Seizures: Yes Thyroid Disease: No - Surgical History Abdominal Surgery: No Appendectomy: No Cardiac Surgery: No Cholecystectomy: No GI Surgery: Yes (peg) Lung Surgery: No Neurologic Surgery: No Orthopedic Surgery: Yes (metal devices in right hip) - Immunization History Immunization Up to Date: Yes - Psycho Social/Smoking Cessation Hx Smoking History: Never smoked Have you smoked in the past 12 months: No Hx Alcohol Use: No Drug/Substance Use Hx: No Substance Use Type: None Hx Substance Use Treatment: No Review of Systems - Review of Systems Able to Perform ROS?: No (nonverbal) Heart Score/ECG Review #1 ECG reviewed & interpreted by me at: 15:25 General ECG Interpretation: Sinus Rhythm, Normal Rate, Normal Intervals Compared to previous ECG there are: No significant change 05/11/19 15:42 EKG normal sinus rhythm at 70 bpm, no interval abnormalities, narrow QRS, ST and T wave segments and morphology normal. Nonspecific T wave abnormalities ED Treatment Course - LABORATORY CBC & Chemistry Diagram: 05/11/19 16:03 05/11/19 16:03 - RADIOLOGY Radiology Studies Ordered: Category Date Time Status CHEST X-RAY PORTABLE* [RAD] Stat Radiology 05/11/19 14:39 Ordered Chest X-Ray Result: No Infiltrates Radiograph Interpretation: 05/11/19 16:23 Chest x-ray with hand artifact on the left side, weak inspiration, prominent mediastinum and increased central markings with dominant distention similar to previous findings in July 2018. No evidence of obstruction or free air under the diaphragm as discussed with radiologist Dr. Escamilla. Medical Decision Making - Medical Decision Making 05/11/19 15:00 Vital Signs Temp Pulse Resp BP Pulse Ox 97.9 F 69 19 139/79 100 05/11/19 14:38 05/11/19 14:36 05/11/19 14:36 05/11/19 14:36 05/11/19 14:38 DDx SOB: ACS, PE, PTX, pulmonary edema, pleurisy, pneumonia, viral syndrome. influenza. effusion. anemia, electrolyte/metabolic derangements clinically doubt PE/dissection or ACS. Vital signs noted for no fevers, no hypothermia. No tachycardia, normotensive and saturations 100% on room air and will give nebulizers for the active wheezing. spoke with [facility] for collateral information. Spoke with nurse at [facility], patient has been having upper respiratory infections and congestion x3 weeks, has been getting duo nebs every 4-6 hours as needed. No antibiotics have been given yet. This morning he was noted to have productive cough and congestion with increased secretions on suctioning of yellow mucus. He had doses of DuoNeb at 10 AM and 2 PM and then once via [facility] when they arrived. He is also been getting Robitussin for the cough. Today progressed to having wheezing. At baseline he is smiling in no acute distress which has been his status over this period of time. duonebs here, solumedrol, magnesium for severe wheezing/moderate respiratory distress. no indication for bipap currently as comfortable on RA. RSV and flu swab infectious workup, blood cultures cxr, labs, ekg. anticipate admission for asthma exacerbation, precipitated by viral infection given time frame and no infiltrates or s/s infection based on vitals and CXR. requires chest PT, frequent nebulizers, steroids and close monitoring, medical management. 05/11/19 16:21 05/12/19 07:22 05/12/19 07:23 Discharge - Discharge Information Problems reviewed: Yes Clinical Impression/Diagnosis: Wheezing Asthma exacerbation Qualifiers: Asthma severity: moderate Asthma persistence: unspecified Qualified Code(s): J45.901 - Unspecified asthma with (acute) exacerbation Condition: Fair - Admission Yes - Follow up/Referral - Patient Discharge Instructions - Post Discharge Activity
[2019-05-11] MEDS ORDERED: methylPREDNISolone NA SUCC 125 MG/2 ML VIAL IVPUSH ONE (15:02)
[2019-05-11] MEDS ORDERED: MAGNESIUM SULF 50% (8.12 MEQ/2 ML-1 GM VIAL) IVPB ONE (15:02)
[2019-05-11 16:29] LABS: BASO % 0.3 % (0-2.0); EOS % 14.4 % (0-4.5); HEMOGLOBIN 14.4 GM/dL (11.7-16.9); LYMPH % 16.4 % (8-40); MCH 30.4 pg (25.7-33.7); MCHC 34.4 g/dl (32.0-35.9); MEAN CELL VOLUME 88.4 fl (80-96); MEAN PLT VOLUME 9.3 fl (7.5-11.1); NEUT % 56.9 % (42.8-82.8); PLATELET COUNT 166 K/MM3 (134-434); RBC 4.75 M/mm3 (4.00-5.60); RDW 15.2 % (11.9-15.9); WHITE BLOOD COUNT 5.3 K/mm3 (4.0-10.0)
[2019-05-11] MEDS ORDERED: methylPREDNISolone NA SUCC 125 MG/2 ML VIAL ONE (16:46)
[2019-05-11] MEDS ORDERED: MAGNESIUM SULF 50% (8.12 MEQ/2 ML-1 GM VIAL) ONE (16:46)
[2019-05-11 16:49] LABS: INR 1.02 (0.83-1.09)
[2019-05-11 16:52] LABS: ACTIVATED PTT 45.2 SECONDS (25.2-36.5); VENOUS PC02 64.3 mmHg (38-52); VENOUS PH 7.34 (7.31-7.41); VENOUS PO2 < 49 mmHg (28-48)
[2019-05-11] MEDS: ALBUTEROL SO4 2.5/IPRATROPIUM 0.5 INH SOL 3 ML VIAL.NEB. NEB SCH (16:58)
[2019-05-11 17:16] LABS: ALBUMIN 3.7 g/dl (3.4-5.0); BILIRUBIN,TOTAL 0.3 mg/dL (0.2-1); CALCIUM 9.1 mg/dL (8.5-10.1); CREATININE 0.6 mg/dL (0.55-1.3); POTASSIUM 3.8 mmol/L (3.5-5.1); TOT PROT 8.1 g/dl (6.4-8.2)
--- NOTE | 2019-05-11 18:29 | PDOC ---
*Physical Exam - Vital Signs Last Vital Signs Temp Pulse Resp BP Pulse Ox 97.9 F 69 19 139/79 100 05/11/19 14:38 05/11/19 14:36 05/11/19 14:36 05/11/19 14:36 05/11/19 14:38 ED Treatment Course - LABORATORY CBC & Chemistry Diagram: 05/11/19 16:03 05/11/19 16:03 - ADDITIONAL ORDERS Additional order review: Laboratory Results 05/11/19 05/11/19 05/11/19 16:03 16:03 16:03 PT with INR INR PTT (Actin FS) VBG pH 7.34 POC VBG pCO2 64.3 H POC VBG pO2 < 49 H VBG HCO3 34.0 H VBG O2 Sat (Derik) 41.3 L VBG Base Excess 6.0 H Sodium Potassium Chloride Carbon Dioxide Anion Gap BUN Creatinine Est GFR (CKD-EPI)AfAm Est GFR (CKD-EPI)NonAf Random Glucose Lactic Acid Calcium Magnesium 2.2 Total Bilirubin AST ALT Alkaline Phosphatase Creatine Kinase 540 H Creatine Kinase Index 0.3 CK-MB (CK-2) 1.9 Troponin I < 0.02 Total Protein Albumin 05/11/19 05/11/19 05/11/19 16:03 16:03 16:03 PT with INR INR PTT (Actin FS) VBG pH POC VBG pCO2 POC VBG pO2 VBG HCO3 VBG O2 Sat (Derik) VBG Base Excess Sodium 136 Potassium 3.8 Chloride 100 Carbon Dioxide 30 Anion Gap 6 L BUN 8.0 Creatinine 0.6 Est GFR (CKD-EPI)AfAm 146.79 Est GFR (CKD-EPI)NonAf 126.65 Random Glucose 78 Lactic Acid 1.7 Calcium 9.1 Magnesium Total Bilirubin 0.3 AST 31 ALT 77 H Alkaline Phosphatase 165 H Creatine Kinase Creatine Kinase Index CK-MB (CK-2) Troponin I Cancelled Total Protein 8.1 Albumin 3.7 05/11/19 16:03 PT with INR 12.00 INR 1.02 PTT (Actin FS) 45.2 H VBG pH POC VBG pCO2 POC VBG pO2 VBG HCO3 VBG O2 Sat (Derik) VBG Base Excess Sodium Potassium Chloride Carbon Dioxide Anion Gap BUN Creatinine Est GFR (CKD-EPI)AfAm Est GFR (CKD-EPI)NonAf Random Glucose Lactic Acid Calcium Magnesium Total Bilirubin AST ALT Alkaline Phosphatase Creatine Kinase Creatine Kinase Index CK-MB (CK-2) Troponin I Total Protein Albumin 05/11/19 16:03 RBC 4.75 MCV 88.4 MCHC 34.4 RDW 15.2 Neutrophils % 56.9 Lymphocytes % 16.4 D Monocytes % 12.0 H Eosinophils % 14.4 H Basophils % 0.3 - RADIOLOGY Chest X-Ray Result: No Infiltrates - Medications Given in the ED: ED Medications Discontinued Medications Generic Name Dose Route Start Last Admin Trade Name Silvestre PRN Reason Stop Dose Admin Albuterol/Ipratropium 1 amp 05/11/19 15:15 05/11/19 16:58 Duoneb - NEB 05/11/19 15:31 1 amp Q15M TRINO Administration Magnesium Sulfate 2 gm 05/11/19 15:02 05/11/19 16:58 Magnesium Sulfate IVPB 05/11/19 15:03 2 gm ONCE ONE Administration Methylprednisolone Sodium Succinate 125 mg 05/11/19 15:02 05/11/19 16:58 Solu-Medrol - IVPUSH 05/11/19 15:03 125 mg ONCE ONE Administration Medical Decision Making - Medical Decision Making 05/11/19 18:27 Received signout on this 38-year-old male from [facility] with history of quadriplegia who presented with asthma exacerbation and increasing congestion, afebrile here with normal O2 sats but congestive lung sounds, clear chest x-ray. Treated as asthma exacerbation with IV steroids, IV magnesium, nebulizers. Labs within normal limits including lactate. Plan at signout was to admit for asthma exacerbation. Accepted for inpatient med/surge by Dr. Gonzalez, signout given to Dr. Asha Kevin. Discharge - Discharge Information Problems reviewed: Yes Clinical Impression/Diagnosis: Wheezing Asthma exacerbation Qualifiers: Asthma severity: moderate Asthma persistence: unspecified Qualified Code(s): J45.901 - Unspecified asthma with (acute) exacerbation Condition: Fair - Follow up/Referral - Patient Discharge Instructions - Post Discharge Activity
[2019-05-11] MEDS ORDERED: ALBUTEROL SO4 0.083% IH SOL 2.5 MG/3 ML VIAL.NEB. NEB PRN (18:41)
[2019-05-11] MEDS ORDERED: DEXTROSE 5%-NORMAL SALINE 1,000 ML IV SCH (18:45)
[2019-05-11] MEDS ORDERED: AZITHROMYCIN IVPB 500 MG/250 ML BAG IVPB ONE (18:47)
--- NOTE | 2019-05-11 18:56 | PN ---
Teaching Attending Note Name of Resident: Flora Lanza ATTENDING PHYSICIAN STATEMENT I saw and evaluated the patient. I reviewed the resident's note and discussed the case with the resident. I agree with the resident's findings and plan as documented. SUBJECTIVE: Non-verbal. OBJECTIVE: Afebrile/Hemodynamically Stable. Appears comfortable. Last Vital Signs Temp Pulse Resp BP Pulse Ox 97.2 F L 78 19 133/68 99 05/11/19 18:38 05/11/19 18:38 05/11/19 18:38 05/11/19 18:38 05/11/19 18:38 HEENT - Atraumatic. Heart - S1, S2, RRR Lungs - bilateral wheeze. Abdomen - PEG in situ without surrounding erythema. Soft, non-tender. Bowel Sounds normal. Extremities - No calf tenderness. Bilateral LE wasting/contractures Laboratory Results - last 24 hr 05/11/19 05/11/19 05/11/19 16:03 16:03 16:03 WBC 5.3 RBC 4.75 Hgb 14.4 Hct 42.0 MCV 88.4 MCH 30.4 MCHC 34.4 RDW 15.2 Absolute Neuts (auto) 3.0 Neutrophils % 56.9 Lymphocytes % 16.4 D Monocytes % 12.0 H Eosinophils % 14.4 H Basophils % 0.3 Nucleated RBC % 0 PT with INR 12.00 INR 1.02 PTT (Actin FS) 45.2 H VBG pH POC VBG pCO2 POC VBG pO2 VBG HCO3 VBG O2 Sat (Derik) VBG Base Excess Sodium Potassium Chloride Carbon Dioxide Anion Gap BUN Creatinine Est GFR (CKD-EPI)AfAm Est GFR (CKD-EPI)NonAf Random Glucose Lactic Acid Calcium Magnesium Total Bilirubin AST ALT Alkaline Phosphatase Creatine Kinase Creatine Kinase Index CK-MB (CK-2) Troponin I Cancelled Total Protein Albumin Influenza A (Rapid) Influenza B (Rapid) RSV Rapid 05/11/19 05/11/19 05/11/19 16:03 16:03 16:03 WBC RBC Hgb Hct MCV MCH MCHC RDW Absolute Neuts (auto) Neutrophils % Lymphocytes % Monocytes % Eosinophils % Basophils % Nucleated RBC % PT with INR INR PTT (Actin FS) VBG pH 7.34 POC VBG pCO2 64.3 H POC VBG pO2 < 49 H VBG HCO3 34.0 H VBG O2 Sat (Derik) 41.3 L VBG Base Excess 6.0 H Sodium 136 Potassium 3.8 Chloride 100 Carbon Dioxide 30 Anion Gap 6 L BUN 8.0 Creatinine 0.6 Est GFR (CKD-EPI)AfAm 146.79 Est GFR (CKD-EPI)NonAf 126.65 Random Glucose 78 Lactic Acid 1.7 Calcium 9.1 Magnesium Total Bilirubin 0.3 AST 31 ALT 77 H Alkaline Phosphatase 165 H Creatine Kinase Creatine Kinase Index CK-MB (CK-2) Troponin I Total Protein 8.1 Albumin 3.7 Influenza A (Rapid) Influenza B (Rapid) RSV Rapid 05/11/19 05/11/19 05/11/19 16:03 16:03 16:03 WBC RBC Hgb Hct MCV MCH MCHC RDW Absolute Neuts (auto) Neutrophils % Lymphocytes % Monocytes % Eosinophils % Basophils % Nucleated RBC % PT with INR INR PTT (Actin FS) VBG pH POC VBG pCO2 POC VBG pO2 VBG HCO3 VBG O2 Sat (Derik) VBG Base Excess Sodium Potassium Chloride Carbon Dioxide Anion Gap BUN Creatinine Est GFR (CKD-EPI)AfAm Est GFR (CKD-EPI)NonAf Random Glucose Lactic Acid Calcium Magnesium 2.2 Total Bilirubin AST ALT Alkaline Phosphatase Creatine Kinase 540 H Creatine Kinase Index 0.3 CK-MB (CK-2) 1.9 Troponin I < 0.02 Total Protein Albumin Influenza A (Rapid) Negative Influenza B (Rapid) Negative RSV Rapid 05/11/19 16:03 WBC RBC Hgb Hct MCV MCH MCHC RDW Absolute Neuts (auto) Neutrophils % Lymphocytes % Monocytes % Eosinophils % Basophils % Nucleated RBC % PT with INR INR PTT (Actin FS) VBG pH POC VBG pCO2 POC VBG pO2 VBG HCO3 VBG O2 Sat (Derik) VBG Base Excess Sodium Potassium Chloride Carbon Dioxide Anion Gap BUN Creatinine Est GFR (CKD-EPI)AfAm Est GFR (CKD-EPI)NonAf Random Glucose Lactic Acid Calcium Magnesium Total Bilirubin AST ALT Alkaline Phosphatase Creatine Kinase Creatine Kinase Index CK-MB (CK-2) Troponin I Total Protein Albumin Influenza A (Rapid) Influenza B (Rapid) RSV Rapid Negative Current Medications Generic Name Dose Route Start Last Admin Trade Name Freq PRN Reason Stop Dose Admin Albuterol Sulfate 1 amp 05/11/19 18:41 Ventolin 0.083% Nebulizer Soln - NEB Q4H PRN SHORT OF BREATH/WHEEZING Albuterol/Ipratropium 1 amp 05/11/19 20:00 Duoneb - NEB RQID TRINO Enoxaparin Sodium 40 mg 05/12/19 10:00 Lovenox - SQ DAILY [facility] Dextrose/Sodium Chloride 1,000 mls @ 83 mls/hr 05/11/19 18:45 D5-Ns - IV ASDIR TRINO Azithromycin 500 mg/ Dextrose 250 mls @ 250 mls/hr 05/11/19 18:45 IVPB DAILY [facility] Methylprednisolone Sodium Succinate 40 mg 05/11/19 21:00 Solu-Medrol - IVPUSH Q6H-IV TRINO Home Medications Medication Instructions Recorded Amlodipine Besylate [Norvasc -] 5 mg GT DAILY 07/21/18 Calcium 250Mg/Vit-D 125 Units 1 tab GT HS 07/21/18 [Oscal 250 mg+D -] Calcium 250Mg/Vit-D 125 Units 2 combo GT DAILY 07/21/18 [Oscal 250 mg+D -] Diazepam Rectal Gel [Diastat 10 mg RC PRN 07/21/18 Rectal Gel -] Diazepam [Valium] 2 mg GT BID 07/21/18 Ferrous Sulfate 220 mg GT HS 07/21/18 Folic Acid 1 mg GT DAILY 07/21/18 Hydrochlorothiazide [Hctz -] 25 mg PO DAILY 07/21/18 Lamotrigine [Lamictal] 150 mg GT HS 07/21/18 Lamotrigine [Lamictal] 175 mg GT BID 07/21/18 Magnesium Hydrox 2400MG/30Ml [Milk 30 ml GT DAILY 07/21/18 of Magnesia -] Metoprolol Tartrate 75 mg GT BID 07/21/18 Multivitamin/Iron/Folic Acid 1 each GT DAILY 07/21/18 [Centrum Adults Tablet] Polyethylene Glycol 3350 [Miralax 17 gm GT DAILY 07/21/18 119 gm Btl -] Sennosides [Senna -] 1 tab GT BID 07/21/18 Talc/Cellulos/Chloroxy/Aldioxa 71 gm TP QID 07/21/18 [Zeasorb Powder] Albuterol 0.083% Nebulizer Michelle 1 neb NEB Q6H 05/11/19 [Ventolin 0.083% Nebulizer Soln -] Albuterol 2.5/Ipratropium 0.5 1 neb IH QID 05/11/19 [Duoneb -] Benzoyl Peroxide 5% Gel - 1 applic TP HS 05/11/19 Cholecalciferol (Vitamin D3) 1,000 unit PO HS 05/11/19 [Vitamin D3] Erythromycin Base/Ethanol 60 ml TP BID 05/11/19 [Erythromycin 2% Solution] Fexofenadine HCl 60 mg PO BID 05/11/19 Fluticasone Propionate [Flovent 50 mcg IH HS 05/11/19 Diskus] Guaifenesin 100 mg PO TID 05/11/19 Ipratropium 0.02% Nebulizer 1 amp NEB QID 05/11/19 [Atrovent 0.02% Nebulizer -] Methylcellulose [Citrucel] 500 mg PO HS 05/11/19 Ranitidine HCl 150 mg GT DAILY 05/11/19 Sodium Chloride [Saline Mist] 44 ml NS 05/11/19 levETIRAcetam [Keppra -] 750 mg GT BID 05/11/19 ASSESSMENT AND PLAN: 37 year old Male from [facility], with PMH of Cerebral Palsy functional quadriplegia, HTN, Seizure Disorder, MR presents with increasing SOB and wheeze after 2-3 week of URTI symptoms 1. Acute Asthma Exacerbation CXR - clear, no evidence of aspiration. SpO2 99% RA Flu/RSV negative DuoNebs, IV Solumedrol, Azithromycin, supplemental O2 as required. Continue Fluticasone Diskus, 2. Seizure Disorder - Continue Lamictal/Keppra/Valium. 3. HTN - resume Amlodipine, Metoprolol. HCTZ held. 4. Cerebral Palsy/MR/Functional Quadriplegia - [place] Resident. Feeds via PEG , will resume. GI Px - Ranitidine DVT Px - Lovenox SQ
[2019-05-11] MEDS: AZITHROMYCIN IVPB 500 MG/250 ML BAG IVPB SCH (18:57)
[2019-05-11 19:02] LABS: PLATELET ESTIMATE ADEQUATE
--- NOTE | 2019-05-11 19:31 | HP ---
CHIEF COMPLAINT: shortness of breath PCP:Dr. Huang HISTORY OF PRESENT ILLNESS: Patient is a 38 year old male, with past medical history of congenital quadriplegia, epilepsy and MR, presented to the ED from [facility] due to worsening shortness of breath and congestion. Patient is nonverbal at baseline, aide at bedside unable to provide any history. History reported by ED staff and chart. As per nurse at [place], patient was reported to have upper respiratory tract infection with cough and congestion for the past 3 weeks. He has been receiving Duonebs and albuterol neb PRN and Robitussin for cough. Today , patient was noted to be more congested with increased secretions that needed more frequent suctioning, as well as wheezing. ER course was notable for: (1)IV solu-medrol 125mg, IV Magnesium 2gm, Duonebs (2) (3) Recent Travel: denies PAST MEDICAL HISTORY: congenital quadriplegia epilepsy MR PAST SURGICAL HISTORY: Right Hip ORIF [place] Social History: Smoking:none Alcohol:none Drugs: none Allergies No Known Allergies Allergy (Verified 07/21/18 14:14) HOME MEDICATIONS: Home Medications Medication Instructions Recorded Amlodipine Besylate [Norvasc -] 5 mg GT DAILY 07/21/18 Calcium 250Mg/Vit-D 125 Units 1 tab GT HS 07/21/18 [Oscal 250 mg+D -] Calcium 250Mg/Vit-D 125 Units 2 combo GT DAILY 07/21/18 [Oscal 250 mg+D -] Diazepam Rectal Gel [Diastat 10 mg RC PRN 07/21/18 Rectal Gel -] Diazepam [Valium] 2 mg GT BID 07/21/18 Ferrous Sulfate 220 mg GT HS 07/21/18 Folic Acid 1 mg GT DAILY 07/21/18 Hydrochlorothiazide [Hctz -] 25 mg PO DAILY 07/21/18 Magnesium Hydrox 2400MG/30Ml [Milk 30 ml GT DAILY 07/21/18 of Magnesia -] Metoprolol Tartrate 75 mg GT BID 07/21/18 Multivitamin/Iron/Folic Acid 1 each GT DAILY 07/21/18 [Centrum Adults Tablet] Polyethylene Glycol 3350 [Miralax 17 gm GT DAILY 07/21/18 119 gm Btl -] Sennosides [Senna -] 1 tab GT BID 07/21/18 Talc/Cellulos/Chloroxy/Aldioxa 71 gm TP QID 07/21/18 [Zeasorb Powder] Albuterol 0.083% Nebulizer Michelle 1 neb NEB Q6H 05/11/19 [Ventolin 0.083% Nebulizer Soln -] Albuterol 2.5/Ipratropium 0.5 1 neb IH QID 05/11/19 [Duoneb -] Benzoyl Peroxide 5% Gel - 1 applic TP HS 05/11/19 Cholecalciferol (Vitamin D3) 1,000 unit PO HS 05/11/19 [Vitamin D3] Erythromycin Base/Ethanol 60 ml TP BID 05/11/19 [Erythromycin 2% Solution] Fexofenadine HCl 60 mg PO BID 05/11/19 Fluticasone Propionate [Flovent 50 mcg [facility] 05/11/19 Diskus] Guaifenesin 100 mg PO TID 05/11/19 Ipratropium 0.02% Nebulizer 1 amp NEB QID 05/11/19 [Atrovent 0.02% Nebulizer -] Lamotrigine 100 mg GT TID 05/11/19 Lamotrigine [Lamictal Odt] 50 mg GT BID 05/11/19 Methylcellulose [Citrucel] 500 mg PO HS 05/11/19 Ranitidine HCl 150 mg GT DAILY 05/11/19 Sodium Chloride [Saline Mist] 44 ml NS 05/11/19 levETIRAcetam [Keppra -] 750 mg GT BID 05/11/19 REVIEW OF SYSTEMS CONSTITUTIONAL: Absent: fever, chills, diaphoresis, generalized weakness, malaise, loss of appetite, weight change HEENT: Absent: rhinorrhea, nasal congestion, throat pain, throat swelling, difficulty swallowing, mouth swelling, ear pain, eye pain, visual changes CARDIOVASCULAR: Absent: chest pain, syncope, palpitations, irregular heart rate, lightheadedness , peripheral edema RESPIRATORY: Absent: cough, shortness of breath, dyspnea with exertion, orthopnea, wheezing, stridor, hemoptysis GASTROINTESTINAL: Absent: abdominal pain, abdominal distension, nausea, vomiting, diarrhea, constipation, melena, hematochezia GENITOURINARY: Absent: dysuria, frequency, urgency, hesitancy, hematuria, flank pain, genital pain MUSCULOSKELETAL: Absent: myalgia, arthralgia, joint swelling, back pain, neck pain SKIN: Absent: rash, itching, pallor HEMATOLOGIC/IMMUNOLOGIC: Absent: easy bleeding, easy bruising, lymphadenopathy, frequent infections ENDOCRINE: Absent: unexplained weight gain, unexplained weight loss, heat intolerance, cold intolerance NEUROLOGIC: Absent: headache, focal weakness or paresthesias, dizziness, unsteady gait, seizure, mental status changes, bladder or bowel incontinence PSYCHIATRIC: Absent: anxiety, depression, suicidal or homicidal ideation, hallucinations. PHYSICAL EXAMINATION Vital Signs - 24 hr 05/11/19 05/11/19 05/11/19 14:36 14:38 18:38 Temperature 97.8 F 97.9 F 97.2 F L Pulse Rate 69 Pulse Rate [ 78 Left Radial] Respiratory 19 19 Rate Blood Pressure 139/79 Blood Pressure 133/68 [Right Arm] O2 Sat by Pulse 100 100 99 Oximetry (%) GENERAL: Awake, alert, nonverbal, in no acute distress. HEAD: microcephalic, atraumatic EYES: PERRLA, anicteric sclerae EARS, NOSE, THROAT: dry mucous membranes. NECK: Supple without lymphadenopathy LUNGS: Scattered wheezes, coarse breath sounds HEART: Regular rate and rhythm, normal S1 and S2 ABDOMEN: Soft, does not grimace on palpation, distended, normoactive bowel sounds MUSCULOSKELETAL: contracted extremities LOWER EXTREMITIES: 2+ pulses, warm, well-perfused. SKIN: Warm, dry, normal turgor Laboratory Results - last 24 hr 05/11/19 05/11/19 05/11/19 16:03 16:03 16:03 WBC 5.3 RBC 4.75 Hgb 14.4 Hct 42.0 MCV 88.4 MCH 30.4 MCHC 34.4 RDW 15.2 Absolute Neuts (auto) 3.0 Neutrophils % 56.9 Lymphocytes % 16.4 D Monocytes % 12.0 H Eosinophils % 14.4 H Basophils % 0.3 Nucleated RBC % 0 PT with INR 12.00 INR 1.02 PTT (Actin FS) 45.2 H VBG pH POC VBG pCO2 POC VBG pO2 VBG HCO3 VBG O2 Sat (Derik) VBG Base Excess Sodium Potassium Chloride Carbon Dioxide Anion Gap BUN Creatinine Est GFR (CKD-EPI)AfAm Est GFR (CKD-EPI)NonAf Random Glucose Lactic Acid Calcium Magnesium Total Bilirubin AST ALT Alkaline Phosphatase Creatine Kinase Creatine Kinase Index CK-MB (CK-2) Troponin I Cancelled Total Protein Albumin Influenza A (Rapid) Influenza B (Rapid) RSV Rapid 05/11/19 05/11/19 05/11/19 16:03 16:03 16:03 WBC RBC Hgb Hct MCV MCH MCHC RDW Absolute Neuts (auto) Neutrophils % Lymphocytes % Monocytes % Eosinophils % Basophils % Nucleated RBC % PT with INR INR PTT (Actin FS) VBG pH 7.34 POC VBG pCO2 64.3 H POC VBG pO2 < 49 H VBG HCO3 34.0 H VBG O2 Sat (Derik) 41.3 L VBG Base Excess 6.0 H Sodium 136 Potassium 3.8 Chloride 100 Carbon Dioxide 30 Anion Gap 6 L BUN 8.0 Creatinine 0.6 Est GFR (CKD-EPI)AfAm 146.79 Est GFR (CKD-EPI)NonAf 126.65 Random Glucose 78 Lactic Acid 1.7 Calcium 9.1 Magnesium Total Bilirubin 0.3 AST 31 ALT 77 H Alkaline Phosphatase 165 H Creatine Kinase Creatine Kinase Index CK-MB (CK-2) Troponin I Total Protein 8.1 Albumin 3.7 Influenza A (Rapid) Influenza B (Rapid) RSV Rapid 05/11/19 05/11/19 05/11/19 16:03 16:03 16:03 WBC RBC Hgb Hct MCV MCH MCHC RDW Absolute Neuts (auto) Neutrophils % Lymphocytes % Monocytes % Eosinophils % Basophils % Nucleated RBC % PT with INR INR PTT (Actin FS) VBG pH POC VBG pCO2 POC VBG pO2 VBG HCO3 VBG O2 Sat (Derik) VBG Base Excess Sodium Potassium Chloride Carbon Dioxide Anion Gap BUN Creatinine Est GFR (CKD-EPI)AfAm Est GFR (CKD-EPI)NonAf Random Glucose Lactic Acid Calcium Magnesium 2.2 Total Bilirubin AST ALT Alkaline Phosphatase Creatine Kinase 540 H Creatine Kinase Index 0.3 CK-MB (CK-2) 1.9 Troponin I < 0.02 Total Protein Albumin Influenza A (Rapid) Negative Influenza B (Rapid) Negative RSV Rapid 05/11/19 16:03 WBC RBC Hgb Hct MCV MCH MCHC RDW Absolute Neuts (auto) Neutrophils % Lymphocytes % Monocytes % Eosinophils % Basophils % Nucleated RBC % PT with INR INR PTT (Actin FS) VBG pH POC VBG pCO2 POC VBG pO2 VBG HCO3 VBG O2 Sat (Derik) VBG Base Excess Sodium Potassium Chloride Carbon Dioxide Anion Gap BUN Creatinine Est GFR (CKD-EPI)AfAm Est GFR (CKD-EPI)NonAf Random Glucose Lactic Acid Calcium Magnesium Total Bilirubin AST ALT Alkaline Phosphatase Creatine Kinase Creatine Kinase Index CK-MB (CK-2) Troponin I Total Protein Albumin Influenza A (Rapid) Influenza B (Rapid) RSV Rapid Negative ASSESSMENT/PLAN: Patient is a 38 year old male, with past medical history of congenital quadriplegia, epilepsy and MR, presented to the ED from [facility] due to worsening shortness of breath. #SOB likely 2/2 acute asthma exacerbation -CXR: weak inspiration, prominent mediastinum, and increased central markings -Influenza, RSV negative -IV Solu-medrol 125mg given at the ED, will continue with solumedrol 40mg q6h -Duonebs RQID -Albuterol neb PRN -Azithromycin 500mg daily -Supplemental O2 PRN to keep SpO2>90% -blood cultures pending #Epilepsy -Continue home medications -Lamictal, Keppra, Valium -Diazepam PRN -seizure precautions #Transaminitis -LFTs at baseline -has been worked up in the past with RUQ US revealing cholelithiasis -will continue to monitor #Hypertension -Continue Amlodipine and Metoprolol, will hold HCTZ #FEN -IV D5-NS @83cc/hr -Electrolytes wnl, routine bmp monitoring -Tube feeds, Jevity 1.2 #Prophylaxis -Lovenox 40mg sq daily #Disposition -full code -admit to med-surg Visit type - Emergency Visit Emergency Visit: Yes ED Registration Date: 05/11/19 Care time: The patient presented to the Emergency Department on the above date and was hospitalized for further evaluation of their emergent condition. - New Patient This patient is new to me today: Yes Date on this admission: 05/11/19 - Critical Care Critical Care patient: No ATTENDING PHYSICIAN STATEMENT I saw and evaluated the patient. I reviewed the resident's note and discussed the case with the resident. I agree with the resident's findings and plan as documented. SUBJECTIVE: OBJECTIVE: ASSESSMENT AND PLAN:
[2019-05-11] MEDS ORDERED: diazePAM ACUDIAL 5-7.5-10 MG 1 EACH KIT RC SCH (19:45)
[2019-05-11] MEDS ORDERED: LORazepam 2 MG/ML SDV VIAL IVPUSH PRN (20:26)
[2019-05-11] MEDS: lamoTRIgine 25 MG TABLET NR SCH (20:45)
[2019-05-11] MEDS: lamoTRIgine 100 MG TABLET (FP) GT SCH (20:45)
[2019-05-11] MEDS: methylPREDNISolone NA SUCC 40 MG/1 ML VIAL IVPUSH SCH (21:17)
[2019-05-11] MEDS: levETIRAcetam 500 MG/5 ML ORAL SOLUTION (UNIT-DOSE CUPS) GT SCH (21:18)
[2019-05-11] MEDS: FERROUS SO4 300 MG/5 ML ORAL SOLN UNIT DOSE CUPS GT SCH (21:18)
[2019-05-11] MEDS: CHOLECALCIFEROL (VIT D3) 1,000 UNIT (25 MCG) TABLET GT SCH (21:19)
[2019-05-11] MEDS: METOPROLOL TARTRATE 25 MG TABLET (FP) GT SCH (21:19)
[2019-05-11] MEDS: diazePAM 2 MG TABLET GT SCH (21:19)
[2019-05-11] MEDS: CALCIUM 250MG/VIT-D 125 UNITS 1 COMBO TABLET NR SCH (21:19)
[2019-05-11] MEDS: SENNOSIDES 8.8 MG/5 ML BULK BOTTLE GT SCH (21:43)
[2019-05-11] MEDS: ERYTHROMYCIN 2% TP SCH (21:45)
[2019-05-11] MEDS: MOMETASONE FUROATE 220 MCG/IH INHALER IH SCH (21:46)
[2019-05-11] MEDS: BENZOYL PEROXIDE 5% 60 GM GEL..GRAM. TP SCH (21:46)
[2019-05-11] MEDS ORDERED: guaiFENesin 200 MG/10 ML 10 ML UNIT-DOSE CUPS PO PRN (22:00)
[2019-05-11] MEDS: SODIUM CHLORIDE NASAL SPRAY 44 ML BOTTLE NS SCH (23:25)
[2019-05-12] MEDS: methylPREDNISolone NA SUCC 40 MG/1 ML VIAL IVPUSH SCH ×4 (03:23→20:57)
[2019-05-12] MEDS: lamoTRIgine 100 MG TABLET (FP) GT SCH ×3 (05:57→20:53)
[2019-05-12] MEDS: ALBUTEROL SO4 2.5/IPRATROPIUM 0.5 INH SOL 3 ML VIAL.NEB. NEB SCH ×5 (08:12→20:49)
[2019-05-12 09:42] LABS: BASO % 0.1 % (0-2.0); EOS % 0.1 % (0-4.5); HEMOGLOBIN 15.4 GM/dL (11.7-16.9); LYMPH % 11.3 % (8-40); MCH 28.9 pg (25.7-33.7); MCHC 32.7 g/dl (32.0-35.9); MEAN CELL VOLUME 88.2 fl (80-96); MEAN PLT VOLUME 9.3 fl (7.5-11.1); MONO % 3.1 % (3.8-10.2); NEUT % 85.4 % (42.8-82.8); PLATELET COUNT 202 K/MM3 (134-434); RBC 5.32 M/mm3 (4.00-5.60); RDW 15.2 % (11.9-15.9); WHITE BLOOD COUNT 4.4 K/mm3 (4.0-10.0)
[2019-05-12 09:54] LABS: ALBUMIN 3.8 g/dl (3.4-5.0); BILIRUBIN,TOTAL 0.2 mg/dL (0.2-1); BLOOD UREA NITROGEN 9.2 mg/dL (7-18); CALCIUM 9.5 mg/dL (8.5-10.1); CREATININE 0.7 mg/dL (0.55-1.3); MAGNESIUM 2.1 mg/dL (1.8-2.4); PHOSPHOROUS 1.9 mg/dL (2.5-4.9); POTASSIUM 3.7 mmol/L (3.5-5.1); TOT PROT 8.7 g/dl (6.4-8.2)
[2019-05-12] MEDS ORDERED: HYDROCHLOROTHIAZIDE 25 MG TABLET (FP) GT SCH (10:00)
[2019-05-12] MEDS ORDERED: PT OWN MED DRAWER 7, Y5N ONE ×2 (10:35→11:25)
[2019-05-12] MEDS: MAGNESIUM HYDROX 2400MG/30ML ORAL SUSPENSION 30 ML CUP GT SCH (10:47)
[2019-05-12] MEDS: levETIRAcetam 500 MG/5 ML ORAL SOLUTION (UNIT-DOSE CUPS) GT SCH ×2 (10:47→21:03)
[2019-05-12] MEDS: SENNOSIDES 8.8 MG/5 ML BULK BOTTLE GT SCH ×2 (10:48→21:08)
[2019-05-12] MEDS: MULTIVITAMINS THER W-MINERALS COMBO TABLET (FP) NR SCH (10:49)
[2019-05-12] MEDS: amLODIPine BESYLATE 5 MG TABLET (FP) GT SCH (10:49)
[2019-05-12] MEDS: LORATADINE 10 MG TABLET GT SCH (10:49)
[2019-05-12] MEDS: diazePAM 2 MG TABLET GT SCH ×2 (10:49→21:00)
[2019-05-12] MEDS: ENOXAPARIN NA (PORCINE) 40 MG/0.4 ML DISP.SYRIN SQ SCH (10:49)
[2019-05-12] MEDS: AZITHROMYCIN IVPB 500 MG/250 ML BAG IVPB SCH (10:49)
[2019-05-12] MEDS: METOPROLOL TARTRATE 25 MG TABLET (FP) GT SCH ×2 (10:49→21:00)
[2019-05-12] MEDS: FOLIC ACID 1 MG TABLET (FP) GT SCH (10:49)
[2019-05-12] MEDS: guaiFENesin 600 MG TABLET.ER (FP) PO SCH ×2 (10:49→21:00)
[2019-05-12] MEDS: CALCIUM 250MG/VIT-D 125 UNITS 1 COMBO TABLET NR SCH ×2 (10:49→21:00)
[2019-05-12] MEDS: POLYETHYLENE GLYCOL 3350 119 GM BTL GT SCH (10:51)
[2019-05-12] MEDS: ERYTHROMYCIN 2% TP SCH ×2 (10:51→21:06)
[2019-05-12] MEDS: FAMOTIDINE 40 MG/5 ML ORAL SUSPENSION NGT SCH (11:27)
[2019-05-12] MEDS: METHYLCELLULOSE 500 MG PO SCH ×2 (12:48→21:01)
[2019-05-12] MEDS ORDERED: SODIUM PHOSPHATE - 30 MM in SODIUM CHLORIDE 500 ML IVPB ONE (14:12)
--- NOTE | 2019-05-12 14:21 | PN ---
Progress Note (short form) - Note Progress Note: SUBJECTIVE: Non-verbal. OBJECTIVE: Afebrile/Hemodynamically Stable. Appears comfortable. Cough, congestion Last Vital Signs Temp Pulse Resp BP Pulse Ox 98.2 F 95 H 18 134/82 98 05/12/19 10:45 05/12/19 10:45 05/12/19 10:45 05/12/19 10:45 05/12/19 09:00 HEENT - Atraumatic. Heart - S1, S2, RRR Lungs - bilateral wheeze improving. Abdomen - PEG in situ without surrounding erythema. Soft, non-tender. Bowel Sounds normal. Extremities - No calf tenderness. Bilateral LE wasting/contractures Laboratory Results - last 24 hr 05/11/19 05/11/19 05/11/19 16:03 16:03 16:03 WBC 5.3 RBC 4.75 Hgb 14.4 Hct 42.0 MCV 88.4 MCH 30.4 MCHC 34.4 RDW 15.2 Plt Count 166 MPV 9.3 Absolute Neuts (auto) 3.0 Neutrophils % 56.9 Lymphocytes % 16.4 D Monocytes % 12.0 H Eosinophils % 14.4 H Basophils % 0.3 Nucleated RBC % 0 Platelet Estimate Adequate Platelet Comment Slide scanned PT with INR 12.00 INR 1.02 PTT (Actin FS) 45.2 H VBG pH POC VBG pCO2 POC VBG pO2 VBG HCO3 VBG O2 Sat (Derik) VBG Base Excess Sodium Potassium Chloride Carbon Dioxide Anion Gap BUN Creatinine Est GFR (CKD-EPI)AfAm Est GFR (CKD-EPI)NonAf Random Glucose Lactic Acid Calcium Phosphorus Magnesium Total Bilirubin AST ALT Alkaline Phosphatase Creatine Kinase Creatine Kinase Index CK-MB (CK-2) Troponin I Cancelled Total Protein Albumin Influenza A (Rapid) Influenza B (Rapid) RSV Rapid 05/11/19 05/11/19 05/11/19 16:03 16:03 16:03 WBC RBC Hgb Hct MCV MCH MCHC RDW Plt Count MPV Absolute Neuts (auto) Neutrophils % Lymphocytes % Monocytes % Eosinophils % Basophils % Nucleated RBC % Platelet Estimate Platelet Comment PT with INR INR PTT (Actin FS) VBG pH 7.34 POC VBG pCO2 64.3 H POC VBG pO2 < 49 H VBG HCO3 34.0 H VBG O2 Sat (Derik) 41.3 L VBG Base Excess 6.0 H Sodium 136 Potassium 3.8 Chloride 100 Carbon Dioxide 30 Anion Gap 6 L BUN 8.0 Creatinine 0.6 Est GFR (CKD-EPI)AfAm 146.79 Est GFR (CKD-EPI)NonAf 126.65 Random Glucose 78 Lactic Acid 1.7 Calcium 9.1 Phosphorus Magnesium Total Bilirubin 0.3 AST 31 ALT 77 H Alkaline Phosphatase 165 H Creatine Kinase Creatine Kinase Index CK-MB (CK-2) Troponin I Total Protein 8.1 Albumin 3.7 Influenza A (Rapid) Influenza B (Rapid) RSV Rapid 05/11/19 05/11/19 05/11/19 16:03 16:03 16:03 WBC RBC Hgb Hct MCV MCH MCHC RDW Plt Count MPV Absolute Neuts (auto) Neutrophils % Lymphocytes % Monocytes % Eosinophils % Basophils % Nucleated RBC % Platelet Estimate Platelet Comment PT with INR INR PTT (Actin FS) VBG pH POC VBG pCO2 POC VBG pO2 VBG HCO3 VBG O2 Sat (Derik) VBG Base Excess Sodium Potassium Chloride Carbon Dioxide Anion Gap BUN Creatinine Est GFR (CKD-EPI)AfAm Est GFR (CKD-EPI)NonAf Random Glucose Lactic Acid Calcium Phosphorus Magnesium 2.2 Total Bilirubin AST ALT Alkaline Phosphatase Creatine Kinase 540 H Creatine Kinase Index 0.3 CK-MB (CK-2) 1.9 Troponin I < 0.02 Total Protein Albumin Influenza A (Rapid) Negative Influenza B (Rapid) Negative RSV Rapid 05/11/19 05/12/19 05/12/19 16:03 09:00 09:00 WBC 4.4 RBC 5.32 Hgb 15.4 Hct 47.0 MCV 88.2 MCH 28.9 MCHC 32.7 RDW 15.2 Plt Count 202 D MPV 9.3 Absolute Neuts (auto) 3.8 Neutrophils % 85.4 H D Lymphocytes % 11.3 D Monocytes % 3.1 L Eosinophils % 0.1 D Basophils % 0.1 Nucleated RBC % 0 Platelet Estimate Platelet Comment PT with INR INR PTT (Actin FS) VBG pH POC VBG pCO2 POC VBG pO2 VBG HCO3 VBG O2 Sat (Derik) VBG Base Excess Sodium 138 Potassium 3.7 Chloride 102 Carbon Dioxide 31 Anion Gap 6 L BUN 9.2 Creatinine 0.7 Est GFR (CKD-EPI)AfAm 137.78 Est GFR (CKD-EPI)NonAf 118.88 Random Glucose 152 H Lactic Acid Calcium 9.5 Phosphorus 1.9 L Magnesium 2.1 Total Bilirubin 0.2 AST 21 ALT 71 H Alkaline Phosphatase 159 H Creatine Kinase Creatine Kinase Index CK-MB (CK-2) Troponin I Total Protein 8.7 H Albumin 3.8 Influenza A (Rapid) Influenza B (Rapid) RSV Rapid Negative Current Medications Generic Name Dose Route Start Last Admin Trade Name Freq PRN Reason Stop Dose Admin Albuterol Sulfate 1 amp 05/11/19 18:41 Ventolin 0.083% Nebulizer Soln - NEB Q4H PRN SHORT OF BREATH/WHEEZING Albuterol/Ipratropium 1 amp 05/11/19 20:00 05/12/19 13:08 Duoneb - NEB 1 amp RQID TRINO Administration Amlodipine Besylate 5 mg 05/12/19 10:00 05/12/19 10:49 Norvasc - GT 5 mg DAILY TRINO Administration Benzoyl Peroxide 1 applic 05/11/19 22:00 05/11/19 21:46 Benzoyl Peroxide 5% Gel - TP 1 applic HS TRINO Administration Calcium/Vitamin D 1 tab 05/11/19 22:00 05/11/19 21:19 Oscal 250 Mg+D - NR 1 tab HS TRINO Administration Calcium/Vitamin D 2 tab 05/12/19 10:00 05/12/19 10:49 Oscal 250 Mg+D - NR 2 tab DAILY TRINO Administration Cholecalciferol 1,000 unit 05/11/19 22:00 05/11/19 21:19 Vitamin D3 - GT 1,000 unit HS TRINO Administration Diazepam 2 mg 05/11/19 22:00 05/12/19 10:49 Valium - GT 2 mg BID TRINO Administration Enoxaparin Sodium 40 mg 05/12/19 10:00 05/12/19 10:49 Lovenox - SQ 40 mg DAILY TRINO Administration Famotidine 20 mg 05/12/19 10:00 05/12/19 11:27 Famotidine NGT 20 mg DAILY TRINO Administration Ferrous Sulfate 300 mg 05/11/19 22:00 05/11/19 21:18 Feosol GT 300 mg HS TRINO Administration Folic Acid 1 mg 05/12/19 10:00 05/12/19 10:49 Folic Acid - GT 1 mg DAILY TRINO Administration Guaifenesin 10 ml 05/11/19 22:00 05/12/19 08:52 Robitussin - PO 10 ml Q8H PRN Administration COUGH Guaifenesin 600 mg 05/12/19 10:00 05/12/19 10:49 Mucinex - PO 600 mg BID TRINO Administration Azithromycin 500 mg in 250 mls @ 250 mls/hr 05/11/19 18:45 05/12/19 10:49 Zithromax 500mg Ivpb (Pre-Docked) IVPB 250 mls/hr DAILY TRINO Administration Sodium Phosphate 30 mm/ Sodium 510 mls @ 63.75 mls/hr 05/12/19 14:12 Chloride IVPB 05/12/19 22:11 ONCE ONE Lamotrigine 100 mg 05/11/19 20:00 05/12/19 05:57 Lamictal - GT 100 mg 599,1599,1999 TRINO Administration Lamotrigine 50 mg 05/11/19 20:00 05/11/19 20:45 Lamictal - NR 50 mg BID@1599,1999 TRINO Administration Levetiracetam 750 mg 05/11/19 22:00 05/12/19 10:47 Keppra Oral Solution - GT 750 mg BID TRINO Administration Loratadine 10 mg 05/12/19 10:00 05/12/19 10:49 Claritin - GT 10 mg DAILY TRINO Administration Lorazepam 4 mg 05/11/19 20:26 Ativan Injection - IVPUSH Q8H PRN SEIZURE Magnesium Hydroxide 30 ml 05/12/19 10:00 05/12/19 10:47 Milk Of Magnesia - GT 30 ml DAILY TRINO Administration Methylprednisolone Sodium Succinate 40 mg 05/11/19 21:00 05/12/19 08:52 Solu-Medrol - IVPUSH 40 mg Q6H-IV TRINO Administration Metoprolol Tartrate 75 mg 05/11/19 22:00 05/12/19 10:49 Lopressor - GT 75 mg BID TRINO Administration Mometasone Furoate 1 puff 05/11/19 22:00 05/11/19 21:46 Asmanex 220mcg - IH 1 puff HS TRINO Administration Multivitamins/Minerals 1 each 05/12/19 10:00 05/12/19 10:49 Theragran-M NR 1 each DAILY TRINO Administration Erythromycin 2% 1 each 05/11/19 22:00 05/12/19 10:51 Solution TP 1 each BID TRINO Administration Non-Formulary Medication 500 mg 05/11/19 22:00 05/12/19 12:48 Methylcellulose [Citrucel] PO Not Given HS TRINO Non-Formulary Medication 71 gm 05/11/19 22:00 05/12/19 13:33 Talc/Cellulos/Chloroxy/Aldioxa [Zeasorb Powder] TP 71 gm QID TRINO Administration Polyethylene Glycol 17 gm 05/12/19 10:00 05/12/19 10:51 Miralax (For Daily Use) - GT 17 gm DAILY TRINO Administration Senna 8.8 mg 05/11/19 22:00 05/12/19 10:48 Senna Oral Solution - GT 8.8 mg BID TRINO Administration Sodium Chloride 2 spray 05/11/19 22:00 05/11/19 23:25 Cole Reno Nasal [place] - NS 2 spray HS TRINO Administration Home Medications Medication Instructions Recorded Amlodipine Besylate [Norvasc -] 5 mg GT DAILY 07/21/18 Calcium 250Mg/Vit-D 125 Units 1 tab GT HS 07/21/18 [Oscal 250 mg+D -] Calcium 250Mg/Vit-D 125 Units 2 combo GT DAILY 07/21/18 [Oscal 250 mg+D -] Diazepam Rectal Gel [Diastat 10 mg RC PRN 07/21/18 Rectal Gel -] Diazepam [Valium] 2 mg GT BID 07/21/18 Ferrous Sulfate 220 mg GT HS 07/21/18 Folic Acid 1 mg GT DAILY 07/21/18 Hydrochlorothiazide [Hctz -] 25 mg PO DAILY 07/21/18 Magnesium Hydrox 2400MG/30Ml [Milk 30 ml GT DAILY 07/21/18 of Magnesia -] Metoprolol Tartrate 75 mg GT BID 07/21/18 Multivitamin/Iron/Folic Acid 1 each GT DAILY 07/21/18 [Centrum Adults Tablet] Polyethylene Glycol 3350 [Miralax 17 gm GT DAILY 07/21/18 119 gm Btl -] Sennosides [Senna -] 1 tab GT BID 07/21/18 Talc/Cellulos/Chloroxy/Aldioxa 71 gm TP QID 07/21/18 [Zeasorb Powder] Albuterol 0.083% Nebulizer Michelle 1 neb NEB Q6H 05/11/19 [Ventolin 0.083% Nebulizer Soln -] Albuterol 2.5/Ipratropium 0.5 1 neb IH QID 05/11/19 [Duoneb -] Benzoyl Peroxide 5% Gel - 1 applic TP HS 05/11/19 Cholecalciferol (Vitamin D3) 1,000 unit PO HS 05/11/19 [Vitamin D3] Erythromycin Base/Ethanol 60 ml TP BID 05/11/19 [Erythromycin 2% Solution] Fexofenadine HCl 60 mg PO BID 05/11/19 Fluticasone Propionate [Flovent 50 mcg IH HS 05/11/19 Diskus] Guaifenesin 100 mg PO TID 05/11/19 Ipratropium 0.02% Nebulizer 1 amp NEB QID 05/11/19 [Atrovent 0.02% Nebulizer -] Lamotrigine 100 mg GT TID 05/11/19 Lamotrigine [Lamictal Odt] 50 mg GT BID 05/11/19 Methylcellulose [Citrucel] 500 mg PO HS 05/11/19 Ranitidine HCl 150 mg GT DAILY 05/11/19 Sodium Chloride [Saline Mist] 44 ml NS HS 05/11/19 levETIRAcetam [Keppra -] 750 mg GT BID 05/11/19 ASSESSMENT AND PLAN: 37 year old Male from [facility], with PMH of Cerebral Palsy functional quadriplegia, HTN, Seizure Disorder, MR presents with increasing SOB and wheeze after 2-3 week of URTI symptoms 1. Acute Asthma Exacerbation CXR - clear, no evidence of aspiration. SpO2 99% RA Flu/RSV negative Continue DuoNebs, IV Solumedrol, Azithromycin, supplemental O2 as required. Continue Asmanex, Claritin. Mucinex and Flonase added for URT symptoms. 2. Seizure Disorder - Continue Lamictal/Keppra/Valium. 3. HTN - resumed on Amlodipine, Metoprolol. HCTZ held. 4. Cerebral Palsy/MR/Functional Quadriplegia - [place] Resident. Feeds via PEG resumed. GI Px - H2 samira DVT Px - Lovenox SQ Visit type - Emergency Visit Emergency Visit: Yes ED Registration Date: 05/11/19 Care time: The patient presented to the Emergency Department on the above date and was hospitalized for further evaluation of their emergent condition. - New Patient This patient is new to me today: No - Critical Care Critical Care patient: No - Discharge Referral Referred to [facility] No
[2019-05-12] MEDS: lamoTRIgine 25 MG TABLET NR SCH ×2 (15:19→20:53)
[2019-05-12] MEDS: FERROUS SO4 300 MG/5 ML ORAL SOLN UNIT DOSE CUPS GT SCH (20:59)
[2019-05-12] MEDS: CHOLECALCIFEROL (VIT D3) 1,000 UNIT (25 MCG) TABLET GT SCH (21:01)
[2019-05-12] MEDS: BENZOYL PEROXIDE 5% 60 GM GEL..GRAM. TP SCH (21:04)
[2019-05-12] MEDS: FLUTICASONE PROP 0.05% 16 GM NASAL SPRAY NS SCH (21:04)
[2019-05-12] MEDS: SODIUM CHLORIDE NASAL SPRAY 44 ML BOTTLE NS SCH (21:05)
[2019-05-12] MEDS: MOMETASONE FUROATE 220 MCG/IH INHALER IH SCH (21:05)
[2019-05-12] MEDS ORDERED: FLUTICASONE PROP 0.05% 16 GM NASAL SPRAY NS SCH (22:00)
[2019-05-13] MEDS: methylPREDNISolone NA SUCC 40 MG/1 ML VIAL IVPUSH SCH ×2 (02:14→09:27)
[2019-05-13] MEDS: lamoTRIgine 100 MG TABLET (FP) GT SCH ×3 (06:21→22:49)
[2019-05-13] MEDS: ALBUTEROL SO4 2.5/IPRATROPIUM 0.5 INH SOL 3 ML VIAL.NEB. NEB SCH ×4 (07:52→20:20)
--- NOTE | 2019-05-13 08:52 | PN ---
Teaching Attending Note Name of Resident: Flora Lanza ATTENDING PHYSICIAN STATEMENT I saw and evaluated the patient. I reviewed the resident's note and discussed the case with the resident. I agree with the resident's findings and plan as documented. SUBJECTIVE: Non-verbal. OBJECTIVE: Afebrile/Hemodynamically Stable. Appears comfortable. Cough, congestion Last Vital Signs Temp Pulse Resp BP Pulse Ox 98.1 F 99 H 20 131/84 98 05/12/19 22:00 05/13/19 03:00 05/13/19 03:00 05/13/19 03:00 05/12/19 21:00 HEENT - Atraumatic. Heart - S1, S2, RRR Lungs - clear to auscultation, wheeze resolved. Abdomen - PEG in situ without surrounding erythema. Non-tender. Bowel Sounds normal. Extremities - No calf tenderness. Bilateral LE wasting/contractures Laboratory Results - last 24 hr 05/12/19 09:00 Sodium 138 Potassium 3.7 Chloride 102 Carbon Dioxide 31 Anion Gap 6 L BUN 9.2 Creatinine 0.7 Est GFR (CKD-EPI)AfAm 137.78 Est GFR (CKD-EPI)NonAf 118.88 Random Glucose 152 H Calcium 9.5 Phosphorus 1.9 L Magnesium 2.1 Total Bilirubin 0.2 AST 21 ALT 71 H Alkaline Phosphatase 159 H Total Protein 8.7 H Albumin 3.8 Current Medications Generic Name Dose Route Start Last Admin Trade Name Freq PRN Reason Stop Dose Admin Albuterol Sulfate 1 amp 05/11/19 18:41 Ventolin 0.083% Nebulizer Soln - NEB Q4H PRN SHORT OF BREATH/WHEEZING Albuterol/Ipratropium 1 amp 05/11/19 20:00 05/13/19 07:52 Duoneb - NEB 1 amp RQID TRINO Administration Amlodipine Besylate 5 mg 05/12/19 10:00 05/12/19 10:49 Norvasc - GT 5 mg DAILY TRINO Administration Benzoyl Peroxide 1 applic 05/11/19 22:00 05/12/19 21:04 Benzoyl Peroxide 5% Gel - TP 1 applic HS TRINO Administration Calcium/Vitamin D 1 tab 05/11/19 22:00 05/12/19 21:00 Oscal 250 Mg+D - NR 1 tab HS TRINO Administration Calcium/Vitamin D 2 tab 05/12/19 10:00 05/12/19 10:49 Oscal 250 Mg+D - NR 2 tab DAILY TRINO Administration Cholecalciferol 1,000 unit 05/11/19 22:00 05/12/19 21:01 Vitamin D3 - GT 1,000 unit HS TRINO Administration Diazepam 2 mg 05/11/19 22:00 05/12/19 21:00 Valium - GT 2 mg BID TRINO Administration Enoxaparin Sodium 40 mg 05/12/19 10:00 05/12/19 10:49 Lovenox - SQ 40 mg DAILY TRINO Administration Famotidine 20 mg 05/12/19 10:00 05/12/19 11:27 Famotidine NGT 20 mg DAILY TRINO Administration Ferrous Sulfate 300 mg 05/11/19 22:00 05/12/19 20:59 Feosol GT 300 mg HS TRINO Administration Fluticasone Propionate 1 spray 05/12/19 14:23 05/12/19 21:04 Flonase - NS 1 spray BID TRINO Administration Folic Acid 1 mg 05/12/19 10:00 05/12/19 10:49 Folic Acid - GT 1 mg DAILY TRINO Administration Guaifenesin 600 mg 05/12/19 10:00 05/12/19 21:00 Mucinex - PO 600 mg BID TRINO Administration Azithromycin 500 mg in 250 mls @ 250 mls/hr 05/11/19 18:45 05/12/19 10:49 Zithromax 500mg Ivpb (Pre-Docked) IVPB 250 mls/hr DAILY TRINO Administration Lamotrigine 100 mg 05/11/19 20:00 05/13/19 06:21 Lamictal - GT 100 mg 0600,1599,1999 TRINO Administration Lamotrigine 50 mg 05/11/19 20:00 05/12/19 20:53 Lamictal - NR 50 mg BID@1600,1999 TRINO Administration Levetiracetam 750 mg 05/11/19 22:00 05/12/19 21:03 Keppra Oral Solution - GT 750 mg BID TRINO Administration Loratadine 10 mg 05/12/19 10:00 05/12/19 10:49 Claritin - GT 10 mg DAILY TRINO Administration Lorazepam 4 mg 05/11/19 20:26 Ativan Injection - IVPUSH Q8H PRN SEIZURE Magnesium Hydroxide 30 ml 05/12/19 10:00 05/12/19 10:47 Milk Of Magnesia - GT 30 ml DAILY TRINO Administration Methylprednisolone Sodium Succinate 40 mg 05/11/19 21:00 05/13/19 02:14 Solu-Medrol - IVPUSH 40 mg Q6H-IV TRINO Administration Metoprolol Tartrate 75 mg 05/11/19 22:00 05/12/19 21:00 Lopressor - GT 75 mg BID TRINO Administration Mometasone Furoate 1 puff 05/11/19 22:00 05/12/19 21:05 Asmanex 220mcg - IH 1 puff HS TRINO Administration Multivitamins/Minerals 1 each 05/12/19 10:00 05/12/19 10:49 Theragran-M NR 1 each DAILY TRINO Administration Erythromycin 2% 1 each 05/11/19 22:00 05/12/19 21:06 Solution TP 1 each BID TRINO Administration Non-Formulary Medication 500 mg 05/11/19 22:00 05/12/19 21:01 Methylcellulose [Citrucel] PO 500 mg HS TRINO Administration Non-Formulary Medication 71 gm 05/11/19 22:00 05/12/19 21:07 Talc/Cellulos/Chloroxy/Aldioxa [Zeasorb Powder] TP 71 gm QID TRINO Administration Polyethylene Glycol 17 gm 05/12/19 10:00 05/12/19 10:51 Miralax (For Daily Use) - GT 17 gm DAILY TRINO Administration Senna 8.8 mg 05/11/19 22:00 05/12/19 21:08 Senna Oral Solution - GT 8.8 mg BID TRINO Administration Sodium Chloride 2 spray 05/11/19 22:00 05/12/19 21:05 [place] Nasal [place] - NS 2 spray HS TRINO Administration Home Medications Medication Instructions Recorded Amlodipine Besylate [Norvasc -] 5 mg GT DAILY 07/21/18 Calcium 250Mg/Vit-D 125 Units 1 tab GT HS 07/21/18 [Oscal 250 mg+D -] Calcium 250Mg/Vit-D 125 Units 2 combo GT DAILY 07/21/18 [Oscal 250 mg+D -] Diazepam Rectal Gel [Diastat 10 mg RC PRN 07/21/18 Rectal Gel -] Diazepam [Valium] 2 mg GT BID 07/21/18 Ferrous Sulfate 220 mg GT HS 07/21/18 Folic Acid 1 mg GT DAILY 07/21/18 Hydrochlorothiazide [Hctz -] 25 mg PO DAILY 07/21/18 Magnesium Hydrox 2400MG/30Ml [Milk 30 ml GT DAILY 07/21/18 of Magnesia -] Metoprolol Tartrate 75 mg GT BID 07/21/18 Multivitamin/Iron/Folic Acid 1 each GT DAILY 07/21/18 [Centrum Adults Tablet] Polyethylene Glycol 3350 [Miralax 17 gm GT DAILY 07/21/18 119 gm Btl -] Sennosides [Senna -] 1 tab GT BID 07/21/18 Talc/Cellulos/Chloroxy/Aldioxa 71 gm TP QID 07/21/18 [Zeasorb Powder] Albuterol 0.083% Nebulizer Michelle 1 neb NEB Q6H 05/11/19 [Ventolin 0.083% Nebulizer Soln -] Albuterol 2.5/Ipratropium 0.5 1 neb IH QID 05/11/19 [Duoneb -] Benzoyl Peroxide 5% Gel - 1 applic TP HS 05/11/19 Cholecalciferol (Vitamin D3) 1,000 unit PO HS 05/11/19 [Vitamin D3] Erythromycin Base/Ethanol 60 ml TP BID 05/11/19 [Erythromycin 2% Solution] Fexofenadine HCl 60 mg PO BID 05/11/19 Fluticasone Propionate [Flovent 50 mcg IH HS 05/11/19 Diskus] Guaifenesin 100 mg PO TID 05/11/19 Ipratropium 0.02% Nebulizer 1 amp NEB QID 05/11/19 [Atrovent 0.02% Nebulizer -] Lamotrigine 100 mg GT TID 05/11/19 Lamotrigine [Lamictal Odt] 50 mg GT BID 05/11/19 Methylcellulose [Citrucel] 500 mg PO HS 05/11/19 Ranitidine HCl 150 mg GT DAILY 05/11/19 Sodium Chloride [Saline Mist] 44 ml NS HS 05/11/19 levETIRAcetam [Keppra -] 750 mg GT BID 05/11/19 ASSESSMENT AND PLAN: 37 year old Male from [facility]– [place], with PMH of Cerebral Palsy, functional quadriplegia, HTN, Seizure Disorder, MR presents with increasing SOB and wheeze after 2-3 week of URTI symptoms 1. Acute Asthma Exacerbation CXR - clear, no evidence of aspiration. SpO2 98% RA Flu/RSV negative Continue DuoNebs. Weaned off O2. IV Solumedrol transitioned to oral Prednisone. Received 3 days of Azithromycin will hold further doses due to elevation in LFTs. No Pneumonia on CXR. No infective symptoms. Continue Asmanex, Claritin. Mucinex and Flonase added for URT symptoms. 2. Seizure Disorder - Continue Lamictal/Keppra/Valium. 3. HTN - resumed on Amlodipine, Metoprolol. HCTZ held. 4. Cerebral Palsy/MR/Functional Quadriplegia - [place] Resident. Feeds via PEG ongoing. 5. Elevated Transaminases - acute, likely secondary to cholestasis due to Abx. Will order Abdadele LOCKE. GI Px - H2 samira DVT Px - Lovenox SQ
[2019-05-13] MEDS: MULTIVITAMINS THER W-MINERALS COMBO TABLET (FP) NR SCH (09:27)
[2019-05-13] MEDS: MAGNESIUM HYDROX 2400MG/30ML ORAL SUSPENSION 30 ML CUP GT SCH (09:27)
[2019-05-13] MEDS: METOPROLOL TARTRATE 25 MG TABLET (FP) GT SCH ×2 (09:27→22:43)
[2019-05-13] MEDS: levETIRAcetam 500 MG/5 ML ORAL SOLUTION (UNIT-DOSE CUPS) GT SCH ×2 (09:27→22:41)
[2019-05-13] MEDS: AZITHROMYCIN IVPB 500 MG/250 ML BAG IVPB SCH (09:28)
[2019-05-13] MEDS: guaiFENesin 600 MG TABLET.ER (FP) PO SCH ×2 (09:28→22:45)
[2019-05-13] MEDS: CALCIUM 250MG/VIT-D 125 UNITS 1 COMBO TABLET NR SCH ×2 (09:28→22:42)
[2019-05-13] MEDS: LORATADINE 10 MG TABLET GT SCH (09:28)
[2019-05-13] MEDS: amLODIPine BESYLATE 5 MG TABLET (FP) GT SCH (09:28)
[2019-05-13] MEDS: ENOXAPARIN NA (PORCINE) 40 MG/0.4 ML DISP.SYRIN SQ SCH (09:28)
[2019-05-13] MEDS: diazePAM 2 MG TABLET GT SCH ×2 (09:28→22:45)
[2019-05-13] MEDS: FOLIC ACID 1 MG TABLET (FP) GT SCH (09:29)
[2019-05-13] MEDS: FLUTICASONE PROP 0.05% 16 GM NASAL SPRAY NS SCH ×2 (09:30→22:53)
[2019-05-13] MEDS: SENNOSIDES 8.8 MG/5 ML BULK BOTTLE GT SCH ×2 (09:31→22:48)
[2019-05-13] MEDS ORDERED: predniSONE 20 MG TABLET (UD) GT ONE (09:44)
[2019-05-13 10:01] LABS: ALBUMIN 4.2 g/dl (3.4-5.0); BILIRUBIN,TOTAL 0.3 mg/dL (0.2-1); BLOOD UREA NITROGEN 8.6 mg/dL (7-18); CALCIUM 9.2 mg/dL (8.5-10.1); CREATININE 0.6 mg/dL (0.55-1.3); MAGNESIUM 2.4 mg/dL (1.8-2.4); PHOSPHOROUS 2.8 mg/dL (2.5-4.9); POTASSIUM 3.5 mmol/L (3.5-5.1); TOT PROT 8.7 g/dl (6.4-8.2)
[2019-05-13] MEDS: FAMOTIDINE 40 MG/5 ML ORAL SUSPENSION NGT SCH (11:05)
[2019-05-13] MEDS: POLYETHYLENE GLYCOL 3350 119 GM BTL GT SCH (11:05)
[2019-05-13] MEDS: ERYTHROMYCIN 2% TP SCH ×2 (11:23→22:57)
--- NOTE | 2019-05-13 13:50 | PN ---
Physical Exam: SUBJECTIVE: Patient seen and examined at bedside this morning. No acute events overnight. Patient alert and smiling this morning, not on any supplemental oxygen. OBJECTIVE: Vital Signs Temperature 97.8 F 05/13/19 09:00 Pulse Rate 99 H 05/13/19 09:39 Respiratory Rate 20 05/13/19 09:00 Blood Pressure 119/94 05/13/19 09:00 O2 Sat by Pulse Oximetry (%) 92 L 05/13/19 09:39 GENERAL: Awake, alert, nonverbal, in no acute distress. HEAD: microcephalic, atraumatic EYES: PERRLA, anicteric sclerae EARS, NOSE, THROAT: dry mucous membranes. NECK: Supple without lymphadenopathy LUNGS: clear to auscultation bilaterally HEART: Regular rate and rhythm, normal S1 and S2 ABDOMEN: Soft, does not grimace on palpation, distended, normoactive bowel sounds MUSCULOSKELETAL: contracted extremities LOWER EXTREMITIES: 2+ pulses, warm, well-perfused. SKIN: Warm, dry, normal turgor Laboratory Results - last 24 hr 05/13/19 08:10 Sodium 139 Potassium 3.5 Chloride 101 Carbon Dioxide 32 Anion Gap 6 L BUN 8.6 Creatinine 0.6 Est GFR (CKD-EPI)AfAm 146.79 Est GFR (CKD-EPI)NonAf 126.65 Random Glucose 125 H Calcium 9.2 Phosphorus 2.8 Magnesium 2.4 Total Bilirubin 0.3 AST 46 H ALT 146 H Alkaline Phosphatase 149 H Total Protein 8.7 H Albumin 4.2 Active Medications Generic Name Dose Route Start Last Admin Trade Name Freq PRN Reason Stop Dose Admin Albuterol Sulfate 1 amp 05/11/19 18:41 Ventolin 0.083% Nebulizer Soln - NEB Q4H PRN SHORT OF BREATH/WHEEZING Albuterol/Ipratropium 1 amp 05/11/19 20:00 05/13/19 11:40 Duoneb - NEB 1 amp RQID TRINO Administration Amlodipine Besylate 5 mg 05/12/19 10:00 05/13/19 09:28 Norvasc - GT 5 mg DAILY TRINO Administration Benzoyl Peroxide 1 applic 05/11/19 22:00 05/12/19 21:04 Benzoyl Peroxide 5% Gel - TP 1 applic HS TRINO Administration Calcium/Vitamin D 1 tab 05/11/19 22:00 05/12/19 21:00 Oscal 250 Mg+D - NR 1 tab HS TRINO Administration Calcium/Vitamin D 2 tab 05/12/19 10:00 05/13/19 09:28 Oscal 250 Mg+D - NR 2 tab DAILY TRINO Administration Cholecalciferol 1,000 unit 05/11/19 22:00 05/12/19 21:01 Vitamin D3 - GT 1,000 unit HS TRINO Administration Diazepam 2 mg 05/11/19 22:00 05/13/19 09:28 Valium - GT 2 mg BID TRINO Administration Enoxaparin Sodium 40 mg 05/12/19 10:00 05/13/19 09:28 Lovenox - SQ 40 mg DAILY TRINO Administration Famotidine 20 mg 05/12/19 10:00 05/13/19 11:05 Famotidine NGT 20 mg DAILY TRINO Administration Ferrous Sulfate 300 mg 05/11/19 22:00 05/12/19 20:59 Feosol GT 300 mg HS TRINO Administration Fluticasone Propionate 1 spray 05/12/19 14:23 05/13/19 09:30 Flonase - NS 1 spray BID TRINO Administration Folic Acid 1 mg 05/12/19 10:00 05/13/19 09:29 Folic Acid - GT 1 mg DAILY TRINO Administration Guaifenesin 600 mg 05/12/19 10:00 05/13/19 09:28 Mucinex - PO 600 mg BID TRINO Administration Azithromycin 500 mg in 250 mls @ 250 mls/hr 05/11/19 18:45 05/13/19 09:28 Zithromax 500mg Ivpb (Pre-Docked) IVPB 250 mls/hr DAILY TRINO Administration Lamotrigine 100 mg 05/11/19 20:00 05/13/19 06:21 Lamictal - GT 100 mg 599,1599,1999 TRINO Administration Lamotrigine 50 mg 05/11/19 20:00 05/12/19 20:53 Lamictal - NR 50 mg BID@1599,1999 TRINO Administration Levetiracetam 750 mg 05/11/19 22:00 05/13/19 09:27 Keppra Oral Solution - GT 750 mg BID TRINO Administration Loratadine 10 mg 05/12/19 10:00 05/13/19 09:28 Claritin - GT 10 mg DAILY TRINO Administration Lorazepam 4 mg 05/11/19 20:26 Ativan Injection - IVPUSH Q8H PRN SEIZURE Magnesium Hydroxide 30 ml 05/12/19 10:00 05/13/19 09:27 Milk Of Magnesia - GT 30 ml DAILY TRINO Administration Metoprolol Tartrate 75 mg 05/11/19 22:00 05/13/19 09:27 Lopressor - GT 75 mg BID TRINO Administration Mometasone Furoate 1 puff 05/11/19 22:00 05/12/19 21:05 Asmanex 220mcg - IH 1 puff HS TRINO Administration Multivitamins/Minerals 1 each 05/12/19 10:00 05/13/19 09:27 Theragran-M NR 1 each DAILY TRINO Administration Erythromycin 2% 1 each 05/11/19 22:00 05/13/19 11:23 Solution TP 1 each BID TRINO Administration Non-Formulary Medication 500 mg 05/11/19 22:00 05/12/19 21:01 Methylcellulose [Citrucel] PO 500 mg HS TRINO Administration Non-Formulary Medication 71 gm 05/11/19 22:00 05/13/19 13:17 Talc/Cellulos/Chloroxy/Aldioxa [Zeasorb Powder] TP 71 gm QID TRINO Administration Polyethylene Glycol 17 gm 05/12/19 10:00 05/13/19 11:05 Miralax (For Daily Use) - GT 17 gm DAILY TRINO Administration Prednisone 40 mg 05/14/19 10:00 Deltasone - GT 05/15/19 10:01 DAILY TRINO Senna 8.8 mg 05/11/19 22:00 05/13/19 09:31 Senna Oral Solution - GT 8.8 mg BID TRINO Administration Sodium Chloride 2 spray 05/11/19 22:00 05/12/19 21:05 [place] Nasal [place] - NS 2 spray HS TRINO Administration ASSESSMENT/PLAN: Patient is a 38 year old male, with past medical history of congenital quadriplegia, epilepsy and MR, presented to the ED from [facility] due to worsening shortness of breath. #SOB likely 2/2 acute asthma exacerbation -Influenza, RSV negative -Will switch to Prednisone 60mg today, then 40mg for 2 more days starting tomorrow to complete 5 day course -Duonebs RQID -Albuterol neb PRN -Azithromycin 500mg x3 doses received. s. -Supplemental O2 PRN to keep SpO2>90% -blood cultures negative #Epilepsy -Continue home medications -Lamictal, Keppra, Valium -Diazepam PRN -seizure precautions #Transaminitis -LFTs at baseline -has been worked up in the past with REYNA LOCKE revealing cholelithiasis -Will discontinue Azithromycin, received 3 doses -will continue to monitor #Hypertension -Continue Amlodipine and Metoprolol, will hold HCTZ #FEN -IV D5-NS @83cc/hr -Electrolytes wnl, routine bmp monitoring -Tube feeds, Jevity 1.2 #Prophylaxis -Lovenox 40mg sq daily #Disposition -full code -admit to med-surg Visit type - Emergency Visit Emergency Visit: Yes ED Registration Date: 05/11/19 Care time: The patient presented to the Emergency Department on the above date and was hospitalized for further evaluation of their emergent condition. - New Patient This patient is new to me today: No - Critical Care Critical Care patient: No ATTENDING PHYSICIAN STATEMENT I saw and evaluated the patient. I reviewed the resident's note and discussed the case with the resident. I agree with the resident's findings and plan as documented. SUBJECTIVE: OBJECTIVE: ASSESSMENT AND PLAN:
[2019-05-13 14:00] VITALS: BMI 22.9
[2019-05-13] MEDS ORDERED: AZITHROMYCIN IVPB 500 MG in DEXTROSE 5%-WATER - 250 ML IVPB ONE (14:33)
[2019-05-13] MEDS ORDERED: PT OWN MED DRAWER 7, Y5N ONE (17:04)
[2019-05-13] MEDS: lamoTRIgine 25 MG TABLET NR SCH ×2 (17:08→22:45)
[2019-05-13] MEDS: METHYLCELLULOSE 500 MG PO SCH (22:37)
[2019-05-13] MEDS: FERROUS SO4 300 MG/5 ML ORAL SOLN UNIT DOSE CUPS GT SCH (22:40)
[2019-05-13] MEDS: CHOLECALCIFEROL (VIT D3) 1,000 UNIT (25 MCG) TABLET GT SCH (22:45)
[2019-05-13] MEDS: MOMETASONE FUROATE 220 MCG/IH INHALER IH SCH (22:51)
[2019-05-13] MEDS: SODIUM CHLORIDE NASAL SPRAY 44 ML BOTTLE NS SCH (22:52)
[2019-05-13] MEDS: BENZOYL PEROXIDE 5% 60 GM GEL..GRAM. TP SCH (22:54)
[2019-05-14] MEDS: lamoTRIgine 100 MG TABLET (FP) GT SCH ×2 (06:46→15:28)
[2019-05-14] MEDS: ALBUTEROL SO4 2.5/IPRATROPIUM 0.5 INH SOL 3 ML VIAL.NEB. NEB SCH ×3 (08:15→15:48)
--- NOTE | 2019-05-14 08:52 | PN ---
Teaching Attending Note Name of Resident: Rickie Marroquin ATTENDING PHYSICIAN STATEMENT I saw and evaluated the patient. I reviewed the resident's note and discussed the case with the resident. I agree with the resident's findings and plan as documented. 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[employer] BRICK:Alert quadriplegic contracture CBC, BMP 05/12/19 09:00 05/13/19 08:10 Active Medications Albuterol Sulfate (Ventolin 0.083% Nebulizer Soln -) 1 amp NEB Q4H PRN PRN Reason: SHORT OF BREATH/WHEEZING Albuterol/Ipratropium (Duoneb -) 1 amp NEB RQID [facility] Last Admin: 05/14/19 08:15 Dose: 1 amp Amlodipine Besylate (Norvasc -) 5 mg GT DAILY [facility] Last Admin: 05/13/19 09:28 Dose: 5 mg Benzoyl Peroxide (Benzoyl Peroxide 5% Gel -) 1 applic TP [facility] Last Admin: 05/13/19 22:54 Dose: 1 applic Calcium/Vitamin D (Oscal 250 Mg+D -) 1 tab NR [facility] Last Admin: 05/13/19 22:42 Dose: 1 tab Calcium/Vitamin D (Oscal 250 Mg+D -) 2 tab NR DAILY [facility] Last Admin: 05/13/19 09:28 Dose: 2 tab Cholecalciferol (Vitamin D3 -) 1,000 unit GT [facility] Last Admin: 05/13/19 22:45 Dose: 1,000 unit Diazepam (Valium -) 2 mg GT BID [facility] Last Admin: 05/13/19 22:45 Dose: 2 mg Enoxaparin Sodium (Lovenox -) 40 mg SQ DAILY [facility] Last Admin: 05/13/19 09:28 Dose: 40 mg Famotidine (Famotidine) 20 mg NGT DAILY [facility] Last Admin: 05/13/19 11:05 Dose: 20 mg Ferrous Sulfate (Feosol) 300 mg GT HS [facility] Last Admin: 05/13/19 22:40 Dose: 300 mg Fluticasone Propionate (Flonase -) 1 spray NS BID [facility] Last Admin: 05/13/19 22:53 Dose: 1 spray Folic Acid (Folic Acid -) 1 mg GT DAILY [facility] Last Admin: 05/13/19 09:29 Dose: 1 mg Guaifenesin (Mucinex -) 600 mg PO BID [facility] Last Admin: 05/13/19 22:45 Dose: 600 mg Lamotrigine (Lamictal -) 100 mg GT 0600,1599,1999 [facility] Last Admin: 05/14/19 06:46 Dose: 100 mg Lamotrigine (Lamictal -) 50 mg NR BID@1599,1999 [facility] Last Admin: 05/13/19 22:45 Dose: 50 mg Levetiracetam (Keppra Oral Solution -) 750 mg GT BID [facility] Last Admin: 05/13/19 22:41 Dose: 750 mg Loratadine (Claritin -) 10 mg GT DAILY [facility] Last Admin: 05/13/19 09:28 Dose: 10 mg Lorazepam (Ativan Injection -) 4 mg IVPUSH Q8H PRN PRN Reason: SEIZURE Magnesium Hydroxide (Milk Of Magnesia -) 30 ml GT DAILY [facility] Last Admin: 05/13/19 09:27 Dose: 30 ml Metoprolol Tartrate (Lopressor -) 75 mg GT BID [facility] Last Admin: 05/13/19 22:43 Dose: 75 mg Mometasone Furoate (Asmanex 220mcg -) 1 puff IH [facility] Last Admin: 05/13/19 22:51 Dose: 1 puff Multivitamins/Minerals (Theragran-M) 1 each NR DAILY [facility] Last Admin: 05/13/19 09:27 Dose: 1 each Erythromycin 2% (Solution) 1 each TP BID [facility] Last Admin: 05/13/19 22:57 Dose: 1 each Non-Formulary Medication (Methylcellulose [Citrucel]) 500 mg PO HS [facility] Last Admin: 05/13/19 22:37 Dose: 500 mg Non-Formulary Medication (Talc/Cellulos/Chloroxy/Aldioxa [Zeasorb Powder]) 71 gm TP QID [facility] Last Admin: 05/13/19 22:50 Dose: 71 gm Polyethylene Glycol (Miralax (For Daily Use) -) 17 gm GT DAILY [facility] Last Admin: 05/13/19 11:05 Dose: 17 gm Prednisone (Deltasone -) 40 mg GT DAILY [facility] Stop: 05/15/19 10:01 Senna (Senna Oral Solution -) 8.8 mg GT BID [facility] Last Admin: 05/13/19 22:48 Dose: 8.8 mg Sodium Chloride ([place] Nasal [place] -) 2 spray NS HS [facility] Last Admin: 05/13/19 22:52 Dose: 2 spray ASSESSMENT AND PLAN:37 year old Male from [facility]– [place]Note 2[place] with PMH of Cerebral Palsy, functional quadriplegia, HTN, Seizure Disorder, MR presents with increasing SOB and wheeze after 2-3 week of URTI symptoms, improved on Po prednisone and NeBs Problem List - Problems (1) Asthma exacerbation Assessment/Plan: Improved cont current meds total 5 days of Prednisone Problems reviewed: Yes Code(s): J45.901 - UNSPECIFIED ASTHMA WITH (ACUTE) EXACERBATION Qualifiers: Asthma severity: moderate Asthma persistence: unspecified Qualified Code( s): J45.901 - Unspecified asthma with (acute) exacerbation (2) Liver function test abnormality Assessment/Plan: Chronic F/U Ultrasound result Code(s): R79.89 - OTHER SPECIFIED ABNORMAL FINDINGS OF BLOOD CHEMISTRY (3) Seizure disorder Assessment/Plan: Cont home me3ds Problems reviewed: Yes Code(s): G40.909 - EPILEPSY, UNSP, NOT INTRACTABLE, WITHOUT STATUS EPILEPTICUS (4) Functional quadriplegia Assessment/Plan: Chronic Problems reviewed: Yes Code(s): R53.2 - FUNCTIONAL QUADRIPLEGIA
[2019-05-14] MEDS ORDERED: predniSONE 20 MG TABLET (UD) GT SCH (10:00)
[2019-05-14] MEDS: FOLIC ACID 1 MG TABLET (FP) GT SCH (10:38)
[2019-05-14] MEDS: guaiFENesin 600 MG TABLET.ER (FP) PO SCH (10:38)
[2019-05-14] MEDS: diazePAM 2 MG TABLET GT SCH (10:38)
[2019-05-14] MEDS: levETIRAcetam 500 MG/5 ML ORAL SOLUTION (UNIT-DOSE CUPS) GT SCH (10:38)
[2019-05-14] MEDS: MULTIVITAMINS THER W-MINERALS COMBO TABLET (FP) NR SCH (10:39)
[2019-05-14] MEDS: METOPROLOL TARTRATE 25 MG TABLET (FP) GT SCH (10:39)
[2019-05-14] MEDS: LORATADINE 10 MG TABLET GT SCH (10:40)
[2019-05-14] MEDS: amLODIPine BESYLATE 5 MG TABLET (FP) GT SCH (10:40)
--- NOTE | 2019-05-14 11:00 | EKG ---
Test Reason : Blood Pressure : / mmHG Vent. Rate : 070 BPM Atrial Rate : 070 BPM P-R Int : 184 ms QRS Dur : 100 ms QT Int : 408 ms P-R-T Axes : 046 010 020 degrees QTc Int : 440 ms NORMAL SINUS RHYTHM POSSIBLE ANTERIOR INFARCT , AGE UNDETERMINED ABNORMAL ECG WHEN COMPARED WITH ECG OF 21-JUL-2018 14:20, OR INTERVAL HAS DECREASED VENT. RATE HAS INCREASED BY 24 BPM Confirmed by ONLA MCGHEE MD ([id number]) on 05/14/2019 11:00:08 AM Referred By: Confirmed By:NOLA MCGHEE MD
--- NOTE | 2019-05-14 13:50 | DS ---
Physical Exam: SUBJECTIVE: Patient seen and examined OBJECTIVE: Vital Signs Period Temp Pulse Resp BP Sys/Osullivan Pulse Ox Last 24 Hr 98.2 F-98.4 F 73-103 20-20 139-146/89-99 95 PHYSICAL EXAM ERAL: Awake, alert, nonverbal, in no acute distress. HEAD: microcephalic, atraumatic EYES: PERRLA, anicteric sclerae, normal conjunctivae EARS, NOSE, THROAT: moist mucous membranes. NECK: Supple without lymphadenopathy LUNGS: clear to auscultation bilaterally. Upper respiratory ronchi transmitting to lungs HEART: Regular rate and rhythm, normal S1 and S2 ABDOMEN: Soft, does not grimace on palpation, mild distension with tympanic abd to percussion, normoactive bowel sounds, santiago-mederos G-tube in place MUSCULOSKELETAL: contracted extremities LOWER EXTREMITIES: 2+ pulses, warm, well-perfused. 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 In the ED, received solu-medrol , scheduled duo-nebs, magnesium. CXR showing increased central makings and distended abdomen, but unchanged since Jul 2018. Physical exam findings improved with wheezing resolving. Solumedrol was transistioned to Prednisone PO. US RUQ was ordered to evaluate for chronic transaminitis. RUQ U/S showed homogenous liver w/o lesion, 9mm GB stone. Patient's case was discussed with the on-call provider(Dr Yarbrough) at [facility]. Patient was accepted into his service. Date of Admission:05/11/19 Date of Discharge: 05/14/19 Minutes to complete discharge: 20 Discharge Summary Problems reviewed: Yes Reason For Visit: EXACERBATION OF ASTHMA Current Active Problems Asthma exacerbation (Acute) Functional quadriplegia (Acute) Wheezing (Acute) Condition: Stable - Instructions Diet, Activity, Other Instructions: Your visit You were admitted to the hospital because you had shortness of breath. This was likely caused by asthma. You were given breathing treatments, steroids and antibiotics and your breathing improved. Medications Please take the following medication as prescribed: 1. Prednisone 40mg for 1 more day(05/15/19) Please continue taking your other medications Follow up Please follow up with your primary care doctor within1 week. Additional info -Please call 911 or go to the ED if with any worsening fevers, chills, headache , dizziness, chest pain, shortness of breath, or any new concerns noted. Disposition: [facility] - Home Medications Comprehensive Discharge Medication List: Ambulatory Orders Amlodipine Besylate [Norvasc -] 5 mg GT DAILY 07/21/18 Calcium 250Mg/Vit-D 125 Units [Oscal 250 mg+D -] 1 tab GT HS 07/21/18 Calcium 250Mg/Vit-D 125 Units [Oscal 250 mg+D -] 2 combo GT DAILY 07/21/18 Diazepam Rectal Gel [Diastat Rectal Gel -] 10 mg RC PRN 07/21/18 Diazepam [Valium] 2 mg GT BID 07/21/18 Ferrous Sulfate 220 mg GT HS 07/21/18 Folic Acid 1 mg GT DAILY 07/21/18 Hydrochlorothiazide [Hctz -] 25 mg PO DAILY 07/21/18 Magnesium Hydrox 2400MG/30Ml [Milk of Magnesia -] 30 ml GT DAILY 07/21/18 Metoprolol Tartrate 75 mg GT BID 07/21/18 Multivitamin/Iron/Folic Acid [Centrum Adults Tablet] 1 each GT DAILY 07/21/18 Polyethylene Glycol 3350 [Miralax 119 gm Btl -] 17 gm GT DAILY 07/21/18 Sennosides [Senna -] 1 tab GT BID 07/21/18 Talc/Cellulos/Chloroxy/Aldioxa [Zeasorb Powder] 71 gm TP QID 07/21/18 Albuterol 0.083% Nebulizer Michelle [Ventolin 0.083% Nebulizer Soln -] 1 neb NEB Q6H 05/11/19 Albuterol 2.5/Ipratropium 0.5 [Duoneb -] 1 neb IH QID 05/11/19 Benzoyl Peroxide 5% Gel - 1 applic TP HS 05/11/19 Cholecalciferol (Vitamin D3) [Vitamin D3] 1,000 unit PO HS 05/11/19 Erythromycin Base in Ethanol [Erythromycin 2% Solution] 60 ml TP BID 05/11/19 Fexofenadine HCl 60 mg PO BID 05/11/19 Fluticasone Propionate [Flovent Diskus] 50 mcg IH HS 05/11/19 Guaifenesin 100 mg PO TID 05/11/19 Ipratropium 0.02% Nebulizer [Atrovent 0.02% Nebulizer -] 1 amp NEB QID 05/11/19 Lamotrigine 100 mg GT TID 05/11/19 Lamotrigine [Lamictal Odt] 50 mg GT BID 05/11/19 Methylcellulose [Citrucel] 500 mg PO HS 05/11/19 Ranitidine HCl 150 mg GT DAILY 05/11/19 Sodium Chloride [Saline Mist] 44 ml NS HS 05/11/19 levETIRAcetam [Keppra -] 750 mg GT BID 05/11/19 Albuterol 0.083% Nebulizer Michelle [Ventolin 0.083% Nebulizer Soln -] 1 amp NEB Q4H PRN amp 05/14/19 Fluticasone Prop 0.05% Nasal [Flonase -] 1 spray NS BID spray 05/14/19 predniSONE [Deltasone -] 40 mg GT DAILY tablet 05/14/19 This patient is new to me today: No Emergency Visit: No Critical Care patient: No - Discharge Referral Referred to [facility] No ATTENDING PHYSICIAN STATEMENT I saw and evaluated the patient. I reviewed the resident's note and discussed the case with the resident. I agree with the resident's findings and plan as documented. SUBJECTIVE: OBJECTIVE: ASSESSMENT AND PLAN:
[2019-05-14] MEDS: FLUTICASONE PROP 0.05% 16 GM NASAL SPRAY NS SCH (14:22)
[2019-05-14] MEDS: ENOXAPARIN NA (PORCINE) 40 MG/0.4 ML DISP.SYRIN SQ SCH (14:22)
[2019-05-14] MEDS: MAGNESIUM HYDROX 2400MG/30ML ORAL SUSPENSION 30 ML CUP GT SCH (14:38)
[2019-05-14] MEDS: FAMOTIDINE 40 MG/5 ML ORAL SUSPENSION NGT SCH (14:39)
[2019-05-14] MEDS: POLYETHYLENE GLYCOL 3350 119 GM BTL GT SCH (14:39)
[2019-05-14] MEDS: SENNOSIDES 8.8 MG/5 ML BULK BOTTLE GT SCH (14:40)
[2019-05-14] MEDS: ERYTHROMYCIN 2% TP SCH (14:40)
[2019-05-14] MEDS: CALCIUM 250MG/VIT-D 125 UNITS 1 COMBO TABLET NR SCH (14:40)
[2019-05-14] MEDS: lamoTRIgine 25 MG TABLET NR SCH (15:28)
[2019-05-14 16:32] VITALS: BP 141/86; PULSE 62; TEMP 98.8
== END 2019-05-14 16:33 | disposition home or self-care (01) | DRG 141 ==
LOC: JER 14:29 → JERBED 18:26 → J8W 19:43
PROVIDERS: ATTEND Internal Medicine
DX: J45.901 Unspecified asthma with (acute) exacerbation (principal); G40.909 Epilepsy, unspecified, not intractable, without status epilepticus; R53.2 Functional quadriplegia; I10 Essential (primary) hypertension; G80.8 Other cerebral palsy; F78 Other intellectual disabilities; R79.89 Other specified abnormal findings of blood chemistry; K80.21 Calculus of gallbladder without cholecystitis with obstruction
CPT/HCPCS: 36415; 71045-TC-FY; 76705-TC; 80053; 82550; 82553; 82803; 83605; 83735; 84100; 84484; 85025; 85610; 85730; 87040; 87804; 87807; 93005; 93010; 94640; 97161-GP; 99284-25

== ENCOUNTER 2019-07-20 14:54 | Inpatient (IN) | payer OTHER ==
--- NOTE | 2019-07-20 15:08 | PDOC ---
History of Present Illness - General Chief Complaint: Shortness of Breath Stated Complaint: Shortness of Breath Time Seen by Provider: 07/20/19 15:03 History Source: Care Home Records Exam Limitations: Physical Impairment - History of Present Illness Initial Comments: 07/20/19 15:08 38y M with PMH of Congenital Quadriplegia, MR, Epilepsy, HTN, PEG, Scoliosis, Obstructive Hydrocephalus, presenting from [place] for respiratory distress with O2 91%, temperature of 100.2, HR of 130. Aide at bedside is unaware of what brought patient to ER but states at baseline he is awake, alert and smiling. PMH: see hpi Meds: see med rec Allergies: nkda Past History - Past Medical History Allergies/Adverse Reactions: Allergies Allergy/AdvReac Type Severity Reaction Status Date / Time No Known Allergies Allergy Verified 07/20/19 17:02 Home Medications: Ambulatory Orders Albuterol 0.083% Nebulizer Michelle [Ventolin 0.083% Nebulizer Soln -] 1 neb NEB Q6H PRN 07/20/19 Amlodipine Besylate 5 mg GT DAILY 07/20/19 Bisacodyl [Dulcolax -] 10 mg PO ASDIR 07/20/19 Budesonide [Pulmicort 0.5 mg Nebulizer -] 1 neb NEB DAILY 07/20/19 Calcium Carbonate/Vitamin D3 [Oystercal-D 500 mg-400 Unit Tb] 1 each GT HS 07/20 Calcium Carbonate/Vitamin D3 [Oystercal-D 500 mg-400 Unit Tb] 2 each GT DAILY Cholecalciferol (Vitamin D3) [Vitamin D3 -] 1,000 unit GT DAILY 07/20/19 Famotidine 20 mg GT HS 07/20/19 Ferrous Sulfate 220 mg GT HS 07/20/19 Fexofenadine HCl 60 mg PO BID 07/20/19 Folic Acid 1 mg GT HS 07/20/19 Hydrochlorothiazide 25 mg GT HS 07/20/19 Lamotrigine 100 mg GT TID 07/20/19 Magnesium Hydroxide [Milk of Magnesia] 15 ml GT BID 07/20/19 Methylcellulose [Citrucel] 1,000 mg GT HS 07/20/19 Metoprolol Tartrate 75 mg GT BID 07/20/19 Multivitamin [Multiple Vitamins] 1 each GT DAILY 07/20/19 Polyethylene Glycol 3350 [Glycolax] 119 gm GT HS 07/20/19 Sennosides [Senna] 2 tab PO HS 07/20/19 Anemia: No Asthma: Yes Cancer: No Cardiac Disorders: No CVA: No COPD: No CHF: No Dementia: No Diabetes: No GI Disorders: No Disorders: No HTN: Yes Hypercholesterolemia: No Liver Disease: No Seizures: Yes Thyroid Disease: No - Surgical History Abdominal Surgery: No Appendectomy: No Cardiac Surgery: No Cholecystectomy: No GI Surgery: Yes (peg) Lung Surgery: No Neurologic Surgery: No Orthopedic Surgery: Yes (metal devices in right hip) - Immunization History Immunization Up to Date: Yes - Psycho Social/Smoking Cessation Hx Smoking History: Unknown if ever smoked Have you smoked in the past 12 months: No Information on smoking cessation initiated: No Hx Alcohol Use: No Drug/Substance Use Hx: No Substance Use Type: None Hx Substance Use Treatment: No Review of Systems - Review of Systems Able to Perform ROS?: No *Physical Exam - Vital Signs Last Vital Signs Temp Pulse Resp BP Pulse Ox 100.0 F H 120 H 16 97/66 96 07/20/19 14:58 07/20/19 14:58 07/20/19 14:58 07/20/19 14:58 07/20/19 14:58 - Physical Exam General Appearance: Yes: Other (cephalomegaly, eyes open, contracted extremities. ) HEENT: positive: EOMI, MICHELLE, Other (large tongue). negative: Pharyngeal Erythema, Tonsillar Exudate Neck: positive: Trachea midline, Supple. negative: Stridor, Lymphadenopathy (R) , Lymphadenopathy (L) Respiratory/Chest: positive: Lungs Clear, Rhonchi, Other (breath sounds obscured by upper airway sounds). negative: Crackles, Rales, Stridor, Wheezing Cardiovascular: positive: S1, S2, Tachycardia. negative: Edema, JVD, Murmur Gastrointestinal/Abdominal: positive: Soft, Other (PEG). negative: Tender Extremity: positive: Normal Capillary Refill. negative: Swelling, Calf Tenderness, Erythema Integumentary: positive: Normal Color, Dry, Warm, Diaphoresis Neurologic: positive: Other (contracted extremities, withdraws lower extremities to pain, moving head) ED Treatment Course - LABORATORY CBC & Chemistry Diagram: 07/20/19 16:00 07/20/19 16:00 Medical Decision Making - Medical Decision Making 07/20/19 15:40 38y M presenting for fever, desaturation and respiratory distress. vitals: tachycardia, febrile, normotensive however lower than baseline. saturating well on NC. pna v. flu v. uti -sepsis w/u, influenza -ofirmev, vanc zosyn, ivf ekg: sinus tachycardia at 114. no elvin or depressions, no electrical alternans no white count. cxr appears unremarkable.l pt had witnessed seizure in ER <2min. loaded with Keppra. flu A positive given comorbidiites, will admit to hospital. tamiflu given. Discharge - Discharge Information Problems reviewed: Yes Clinical Impression/Diagnosis: Influenza A Fever Qualifiers: Fever type: due to other condition Qualified Code(s): R50.81 - Fever presenting with conditions classified elsewhere Condition: Stable - Admission Yes - Follow up/Referral - Patient Discharge Instructions - Post Discharge Activity
[2019-07-20] MEDS ORDERED: LACTATED RINGERS SOLUTION 1000 ML INFUS.BAG IV ONE (15:10)
[2019-07-20] MEDS ORDERED: ACETAMINOPHEN 1000 MG/100 ML VIAL (NON FORMULARY) IVPB ONE (15:22)
[2019-07-20] MEDS ORDERED: VANCOMYCIN 1 GM in D5W (PRE-DOCKED) 1,000 MG/250 ML IVPB ONE (15:23)
[2019-07-20] MEDS ORDERED: PIPERACILLIN/TAZOB 3.375 GM 3.375 GM in DEXTROSE 5%-WATER - 50 ML IVPB ONE (15:23)
--- NOTE | 2019-07-20 16:12 | PDOC ---
Attending Attestation - Resident Resident Name: AnaMerary - ED Attending Attestation I have performed the following: I have examined & evaluated the patient, The case was reviewed & discussed with the resident, I agree w/resident's findings & plan, Exceptions are as noted - HPI HPI: 07/20/19 16:10 38 M with h/o congenital quadriplegia, MR, epilepsy, HTN, hydrocephalus, PEG, presenting to ED with hypoxia and respitaory distress. Pt unable to provide any history. - Physicial Exam PE: 07/20/19 16:11 See resident exam - Critical Care Time Total Critical Care Time: 60 Critical Care Statement: The care of this patient involved high complexity decision making to prevent further life threatening deterioration of the patient 's condition and/or to evaluate & treat vital organ system(s) failure or risk of failure. - Medical Decision Making 07/20/19 16:11 38 M with sepsis, likely respiratory source given hypoxia. - Labs, cultures - Flu swab - CXR, UA - IVF, tylenol, abx
[2019-07-20 16:23] LABS: PH,URINE 7.5 (5.0-8.0); URINE APPEARANCE CLEAR; URINE BILIRUBIN NEGATIVE (NEGATIVE); URINE COLOR YELLOW; URINE GLUCOSE (UA) NEGATIVE (NEGATIVE); URINE KETONE NEGATIVE (NEGATIVE); URINE LEUK ESTERASE NEGATIVE (NEGATIVE); URINE NITRITE NEGATIVE (NEGATIVE); URINE PROTEIN NEGATIVE (NEGATIVE); URINE UROBILINOGEN 0.2 mg/dL (0.2-1.0)
[2019-07-20 16:28] LABS: BASO % 0.2 % (0-2.0); EOS % 0.2 % (0-4.5); HEMATOCRIT 44.9 % (35.4-49); HEMOGLOBIN 14.6 GM/dL (11.7-16.9); LYMPH % 2.7 % (8-40); MCH 28.8 pg (25.7-33.7); MCHC 32.5 g/dl (32.0-35.9); MEAN CELL VOLUME 88.7 fl (80-96); MEAN PLT VOLUME 9.2 fl (7.5-11.1); MONO % 13.2 % (3.8-10.2); NEUT % 83.7 % (42.8-82.8); PLATELET COUNT 182 K/MM3 (134-434); RBC 5.06 M/mm3 (4.00-5.60); RDW 13.7 % (11.9-15.9); WHITE BLOOD COUNT 4.5 K/mm3 (4.0-10.0)
[2019-07-20 16:30] LABS: VENOUS BASE EXCESS 5.3 meq/l (-2-2); VENOUS PC02 49.6 mmHg (38-52); VENOUS PH 7.41 (7.31-7.41)
[2019-07-20 16:32] LABS: VENOUS PO2 < 49 mmHg (28-48)
[2019-07-20] MEDS ORDERED: ACETAMINOPHEN INJECTION 100 ML IVPB ONE (16:37)
[2019-07-20] MEDS ORDERED: VANCOMYCIN 1 GRAM (PRE-DOCKED) 1,000 MG/250 ML BAG IVPB ONE (16:37)
[2019-07-20] MEDS ORDERED: PIPERACILLIN/TAZOB 3.375 GM 3.375 GM/50 ML BAG IVPB ONE (16:38)
[2019-07-20 16:55] LABS: ALBUMIN 3.7 g/dl (3.4-5.0); ALK PHOS 133 U/L (45-117); ANION GAP 8 MMOL/L (8-16); BILIRUBIN,TOTAL 0.2 mg/dL (0.2-1); BLOOD UREA NITROGEN 11.1 mg/dL (7-18); CALCIUM 8.8 mg/dL (8.5-10.1); CHLORIDE 95 mmol/L (98-107); CO2 29 mmol/L (21-32); CREATININE 0.8 mg/dL (0.55-1.3); GLUCOSE,RANDOM 136 mg/dL (74-106); POTASSIUM 3.8 mmol/L (3.5-5.1); SGOT/AST 21 U/L (15-37); SGPT/ALT 84 U/L (13-61); SODIUM 132 mmol/L (136-145); TOT PROT 7.7 g/dl (6.4-8.2)
[2019-07-20] MEDS ORDERED: levETIRAcetam 500 MG/5 ML INJECTION VIAL IVPB ONE ×3 (17:12→17:16)
[2019-07-20 17:13] LABS: INR 1.13 (0.83-1.09); PROTHROMBIN TIME (PATIENT) 13.3 SEC (9.7-13.0)
[2019-07-20 17:16] LABS: ACTIVATED PTT 36.4 SECONDS (25.2-36.5)
--- NOTE | 2019-07-20 19:51 | PDOC ---
*Physical Exam - Vital Signs Last Vital Signs Temp Pulse Resp BP Pulse Ox 36.6 C 81 15 105/74 99 07/20/19 19:16 07/20/19 18:59 07/20/19 18:59 07/20/19 18:59 07/20/19 19:01 - Physical Exam MDM: Received sign out from resident Dr. Perez. In short, pt is a 38 y/o male with multiple comorbidities presenting with shortness of breath from [facility]. Pt was found to be influenza positive. ED course complicated by a seizure. Will follow up pending admission. 20 Jul 2019 20:20 PM Telephone discussion with resident Dr. Mcgrath. Pt to be admitted to med/surg for Dr. Looney. ED Treatment Course - LABORATORY CBC & Chemistry Diagram: 07/20/19 16:00 07/20/19 16:00 - ADDITIONAL ORDERS Additional order review: Laboratory Results 07/20/19 07/20/19 07/20/19 16:00 16:00 16:00 PT with INR INR PTT (Actin FS) VBG pH 7.41 POC VBG pCO2 49.6 POC VBG pO2 < 49 H VBG HCO3 30.9 H VBG O2 Sat (Derik) 57.3 L VBG Base Excess 5.3 H Sodium Potassium Chloride Carbon Dioxide Anion Gap BUN Creatinine Est GFR (CKD-EPI)AfAm Est GFR (CKD-EPI)NonAf Random Glucose Lactic Acid 2.6 H* Calcium Total Bilirubin AST ALT Alkaline Phosphatase Troponin I Total Protein Albumin Urine Color Yellow Urine Appearance Clear Urine pH 7.5 Ur Specific [place] 1.017 Urine Protein Negative Urine Glucose (UA) Negative Urine Ketones Negative Urine Blood Negative Urine Nitrite Negative Urine Bilirubin Negative Urine Urobilinogen 0.2 Ur Leukocyte Esterase Negative 07/20/19 07/20/19 16:00 16:00 PT with INR 13.30 H INR 1.13 H PTT (Actin FS) 36.4 VBG pH POC VBG pCO2 POC VBG pO2 VBG HCO3 VBG O2 Sat (Derik) VBG Base Excess Sodium 132 L Potassium 3.8 Chloride 95 L Carbon Dioxide 29 Anion Gap 8 BUN 11.1 Creatinine 0.8 Est GFR (CKD-EPI)AfAm 130.42 Est GFR (CKD-EPI)NonAf 112.53 Random Glucose 136 H Lactic Acid Calcium 8.8 Total Bilirubin 0.2 AST 21 ALT 84 H Alkaline Phosphatase 133 H Troponin I < 0.02 Total Protein 7.7 Albumin 3.7 Urine Color Urine Appearance Urine pH Ur Specific [place] Urine Protein Urine Glucose (UA) Urine Ketones Urine Blood Urine Nitrite Urine Bilirubin Urine Urobilinogen Ur Leukocyte Esterase 07/20/19 16:00 RBC 5.06 MCV 88.7 MCHC 32.5 RDW 13.7 MPV 9.2 Neutrophils % 83.7 H Lymphocytes % 2.7 L D Monocytes % 13.2 H D Eosinophils % 0.2 D Basophils % 0.2 - Medications Given in the ED: ED Medications Discontinued Medications Generic Name Dose Route Start Last Admin Trade Name Freq PRN Reason Stop Dose Admin Acetaminophen 1,000 mg 07/20/19 15:22 07/20/19 16:42 Ofirmev Injection - IVPB 07/20/19 15:23 1,000 mg ONCE ONE Administration Piperacillin Sod/Tazobactam 50 mls @ 100 mls/hr 07/20/19 15:23 07/20/19 16:43 Sod 3.375 gm/ Dextrose IVPB 07/20/19 15:52 100 mls/hr ONCE ONE Administration Protocol Lactated Ringer's 1,000 ml 07/20/19 15:10 07/20/19 16:42 Lactated Ringers Solution IV 07/20/19 15:11 1,000 ml NOW ONE Administration Levetiracetam 500 mg 07/20/19 17:12 07/20/19 17:20 Keppra Injection - IVPB 07/20/19 17:13 Not Given ONCE ONE Levetiracetam 1,000 mg 07/20/19 17:16 07/20/19 17:20 Keppra Injection - IVPB 07/20/19 17:17 1,000 mg ONCE ONE Administration Vancomycin HCl 1,000 mg 07/20/19 15:23 07/20/19 17:13 Vancomycin (Pre-Docked) IVPB 07/20/19 15:24 1,000 mg ONCE ONE Administration Protocol Discharge - Discharge Information Problems reviewed: Yes Clinical Impression/Diagnosis: Influenza A Fever Qualifiers: Fever type: due to other condition Qualified Code(s): R50.81 - Fever presenting with conditions classified elsewhere Condition: Stable - Follow up/Referral - Patient Discharge Instructions - Post Discharge Activity
[2019-07-20] MEDS ORDERED: SODIUM CHLORIDE 500 ML IV STA (20:04)
--- NOTE | 2019-07-20 20:12 | HP ---
CHIEF COMPLAINT: shortness of breath, hypoxia PCP: Dr. Huang, [facility] HISTORY OF PRESENT ILLNESS: Patient is a 38 year old male with history of congenital quadriplegia, epilepsy , MR presents from [facility] due to worsening shortness of breath. Per ED notes, patient was saturating 91% at heart rate of 130PM. Afebrile to 100.2F. In the ED he was found to be Influenza A positive. Noted to have a witnessed seizure (lasting less than 2 minutes); was loaded with Keppra. Per aide at bedside, patient is currently at his baseline. ER course was notable for: (1) Chest radiograph (2) Infleunza A positive, Oseltamivir (3) Recent Travel: [place] PAST MEDICAL HISTORY: congenital quadriplegia, epilepsy, MR PAST SURGICAL HISTORY: Right hip ORIF, G tube placement Social History: Lives in [facility]. Smoking: Denies Alcohol: Denies Drugs: Denies Allergies No Known Allergies Allergy (Verified 07/20/19 17:02) HOME MEDICATIONS: Home Medications Medication Instructions Recorded Albuterol 0.083% Nebulizer Michelle 1 neb NEB Q6H PRN 07/20/19 [Ventolin 0.083% Nebulizer Soln -] Amlodipine Besylate 5 mg GT DAILY 07/20/19 Bisacodyl [Dulcolax -] 10 mg PO ASDIR 07/20/19 Budesonide [Pulmicort 0.5 mg 1 neb NEB DAILY 07/20/19 Nebulizer -] Calcium Carbonate/Vitamin D3 1 each GT HS 07/20/19 [Oystercal-D 500 mg-400 Unit Tb] Calcium Carbonate/Vitamin D3 2 each GT DAILY 07/20/19 [Oystercal-D 500 mg-400 Unit Tb] Cholecalciferol (Vitamin D3) 1,000 unit GT DAILY 07/20/19 [Vitamin D3 -] Famotidine 20 mg GT HS 07/20/19 Ferrous Sulfate 220 mg GT HS 07/20/19 Fexofenadine HCl 60 mg PO BID 07/20/19 Folic Acid 1 mg GT HS 07/20/19 Hydrochlorothiazide 25 mg GT HS 07/20/19 Lamotrigine 100 mg GT TID 07/20/19 Magnesium Hydroxide [Milk of 15 ml GT BID 07/20/19 Magnesia] Methylcellulose [Citrucel] 1,000 mg GT HS 07/20/19 Metoprolol Tartrate 75 mg GT BID 07/20/19 Multivitamin [Multiple Vitamins] 1 each GT DAILY 07/20/19 Polyethylene Glycol 3350 [Glycolax] 119 gm GT HS 07/20/19 Sennosides [Senna] 2 tab PO HS 07/20/19 REVIEW OF SYSTEMS As per HPI. Unable to obtain further given patient is non-verbal at baseline. PHYSICAL EXAMINATION Vital Signs - 24 hr 07/20/19 07/20/19 07/20/19 14:58 15:27 16:52 Temperature 100.0 F H 101.1 F H Pulse Rate 120 H Pulse Rate [ 115 H Right Radial] Respiratory 16 16 Rate Blood Pressure 97/66 Blood Pressure 126/94 [Left Arm] O2 Sat by Pulse 96 99 Oximetry (%) 07/20/19 07/20/19 07/20/19 17:21 17:52 18:15 Temperature Pulse Rate Pulse Rate [ 96 H 87 Right Radial] Respiratory 15 15 14 Rate Blood Pressure Blood Pressure 117/77 117/86 [Left Arm] O2 Sat by Pulse 100 100 99 Oximetry (%) 07/20/19 07/20/19 07/20/19 18:59 19:01 19:16 Temperature 97.8 F Pulse Rate Pulse Rate [ 81 Right Radial] Respiratory 15 Rate Blood Pressure Blood Pressure 105/74 [Left Arm] O2 Sat by Pulse 100 99 Oximetry (%) GENERAL: Awake, alert, in no acute distress. HEAD: Microcephalic, atraumatic EYES: Pupils equal, round and reactive to light, sclera anicteric, conjunctiva clear. EARS, NOSE, THROAT: Oropharynx clear without exudates. Dry mucous membranes. NECK: Supple without lymphadenopathy, or JVD. LUNGS: Scattered wheezing, and rhonchi bilaterally. No accessory muscle use. HEART: Regular rate and rhythm, normal S1 and S2 without murmur, rub or gallop. ABDOMEN: Soft, nontender, not distended. Gtube in situ; site clean dry. Normoactive bowel sounds x4 quadrants, no guarding, no rebound. EXTREMITIES: Contracted. 2+ pulses, warm, well-perfused. No peripheral edema. SKIN: Warm, dry. Laboratory Results - last 24 hr 07/20/19 07/20/19 07/20/19 16:00 16:00 16:00 WBC 4.5 RBC 5.06 Hgb 14.6 Hct 44.9 MCV 88.7 MCH 28.8 MCHC 32.5 RDW 13.7 Plt Count 182 MPV 9.2 Absolute Neuts (auto) 3.8 Neutrophils % 83.7 H Lymphocytes % 2.7 L D Monocytes % 13.2 H D Eosinophils % 0.2 D Basophils % 0.2 Nucleated RBC % 0 PT with INR 13.30 H INR 1.13 H PTT (Actin FS) 36.4 VBG pH POC VBG pCO2 POC VBG pO2 VBG HCO3 VBG O2 Sat (Derik) VBG Base Excess Sodium 132 L Potassium 3.8 Chloride 95 L Carbon Dioxide 29 Anion Gap 8 BUN 11.1 Creatinine 0.8 Est GFR (CKD-EPI)AfAm 130.42 Est GFR (CKD-EPI)NonAf 112.53 Random Glucose 136 H Lactic Acid Calcium 8.8 Total Bilirubin 0.2 AST 21 ALT 84 H Alkaline Phosphatase 133 H Troponin I < 0.02 Total Protein 7.7 Albumin 3.7 Urine Color Urine Appearance Urine pH Ur Specific [place] Urine Protein Urine Glucose (UA) Urine Ketones Urine Blood Urine Nitrite Urine Bilirubin Urine Urobilinogen Ur Leukocyte Esterase Influenza A (Rapid) Influenza B (Rapid) 07/20/19 07/20/19 07/20/19 16:00 16:00 16:00 WBC RBC Hgb Hct MCV MCH MCHC RDW Plt Count MPV Absolute Neuts (auto) Neutrophils % Lymphocytes % Monocytes % Eosinophils % Basophils % Nucleated RBC % PT with INR INR PTT (Actin FS) VBG pH 7.41 POC VBG pCO2 49.6 POC VBG pO2 < 49 H VBG HCO3 30.9 H VBG O2 Sat (Derik) 57.3 L VBG Base Excess 5.3 H Sodium Potassium Chloride Carbon Dioxide Anion Gap BUN Creatinine Est GFR (CKD-EPI)AfAm Est GFR (CKD-EPI)NonAf Random Glucose Lactic Acid 2.6 H* Calcium Total Bilirubin AST ALT Alkaline Phosphatase Troponin I Total Protein Albumin Urine Color Yellow Urine Appearance Clear Urine pH 7.5 Ur Specific [place] 1.017 Urine Protein Negative Urine Glucose (UA) Negative Urine Ketones Negative Urine Blood Negative Urine Nitrite Negative Urine Bilirubin Negative Urine Urobilinogen 0.2 Ur Leukocyte Esterase Negative Influenza A (Rapid) Influenza B (Rapid) 07/20/19 16:45 WBC RBC Hgb Hct MCV MCH MCHC RDW Plt Count MPV Absolute Neuts (auto) Neutrophils % Lymphocytes % Monocytes % Eosinophils % Basophils % Nucleated RBC % PT with INR INR PTT (Actin FS) VBG pH POC VBG pCO2 POC VBG pO2 VBG HCO3 VBG O2 Sat (Derik) VBG Base Excess Sodium Potassium Chloride Carbon Dioxide Anion Gap BUN Creatinine Est GFR (CKD-EPI)AfAm Est GFR (CKD-EPI)NonAf Random Glucose Lactic Acid Calcium Total Bilirubin AST ALT Alkaline Phosphatase Troponin I Total Protein Albumin Urine Color Urine Appearance Urine pH Ur Specific [place] Urine Protein Urine Glucose (UA) Urine Ketones Urine Blood Urine Nitrite Urine Bilirubin Urine Urobilinogen Ur Leukocyte Esterase Influenza A (Rapid) Positive A Influenza B (Rapid) Negative ASSESSMENT/PLAN: Patient is a 38 year old male with history of congenital quadriplegia, epilepsy , MR presents from [facility] due to worsening shortness of breath. Acute hopoxic respiratory distress, secondary to Infleunza A -Infleunza A positive in ED -Chest radiograph does not reveal acute infiltrate. -Will obtain CT chest -Patient received Vancomycin, Zosyn in ED. Preliminiary read CT chest concerning for infiltrate (?aspiration given recent seizure activity); will continue Zosyn 3.375grams IV Q8 hours. -Oseltamivir 75mg GT Liquid BID. -Lactic Acid 2.6 -> 1.9 -Ofirmev 1000mg IV Q6 hours for fever Epilepsy -Continue Lamictal, Keppra. Follow levels. -Neurology evaluation (Dr. De Leon) -Diazepam PRN -Seizure precautions Hypertension -Continue Amlodipine and Metoprolol, HCTZ Transaminitis -LFTs at baseline -Patient has been worked up in the past with RUQ US revealing cholelithiasis, contracted gallbladder -Patient was evaluated by Dr. Sandoval in past, noted endoscopic ultrasound to be considered for further evaluation at [facility]. -Follow transaminases FEN -IV normal saline at 83mL/ hour -Follow MP -Jevity tube feeds; initiated at lowest rate, to titrate accordingly. Prophylaxis -Lovenox 40mg subq daily Disposition -Admit to medical- surgical floor Visit type - Emergency Visit Emergency Visit: Yes ED Registration Date: 07/20/19 Care time: The patient presented to the Emergency Department on the above date and was hospitalized for further evaluation of their emergent condition. - New Patient This patient is new to me today: Yes Date on this admission: 07/20/19 - Critical Care Critical Care patient: No ATTENDING PHYSICIAN STATEMENT I saw and evaluated the patient. I reviewed the resident's note and discussed the case with the resident. I agree with the resident's findings and plan as documented. SUBJECTIVE: OBJECTIVE: ASSESSMENT AND PLAN:
[2019-07-20] MEDS ORDERED: ALBUTEROL SO4 0.083% IH SOL 2.5 MG/3 ML VIAL.NEB. NEB PRN (22:12)
[2019-07-20] MEDS: SODIUM CHLORIDE 1,000 ML IV SCH (22:15)
[2019-07-20] MEDS ORDERED: OSELTAMIVIR PHOSPHATE 75 MG CAPSULE ONE (22:22)
[2019-07-20] MEDS: OSELTAMIVIR PHOSPHATE 6 MG/1 ML PO SCH (22:39)
--- NOTE | 2019-07-21 00:51 | PN ---
Teaching Attending Note Name of Resident: Sean Mcgrath ATTENDING PHYSICIAN STATEMENT I saw and evaluated the patient. I reviewed the resident's note and discussed the case with the resident. I agree with the resident's findings and plan as documented. Flu+ on tamiflu; monitor for INSERT DICTATION BOX ASSESSMENT AND PLAN:
[2019-07-21] MEDS ORDERED: DEXTROSE 5%-WATER - 50 ML IVPB ONE ×2 (02:19→17:22)
[2019-07-21] MEDS ORDERED: PIPERACILLIN/TAZOBACTAM 3.375 GM VIAL IVPB ONE ×3 (02:19→17:21)
[2019-07-21] MEDS: PIPERACILLIN/TAZOB 3.375 GM 3.375 GM in DEXTROSE 5%-WATER - 50 ML IVPB SCH ×3 (02:40→18:57)
[2019-07-21] MEDS: lamoTRIgine 100 MG TABLET GT SCH ×3 (06:00→22:42)
[2019-07-21 07:03] LABS: HEMATOCRIT 41.3 % (35.4-49); HEMOGLOBIN 13.6 GM/dL (11.7-16.9); MCH 29.3 pg (25.7-33.7); MCHC 33.1 g/dl (32.0-35.9); MEAN CELL VOLUME 88.7 fl (80-96); MEAN PLT VOLUME 9.5 fl (7.5-11.1); PLATELET COUNT 184 K/MM3 (134-434); RBC 4.65 M/mm3 (4.00-5.60); RDW 14.1 % (11.9-15.9); WHITE BLOOD COUNT 5.3 K/mm3 (4.0-10.0)
[2019-07-21 07:18] LABS: ALBUMIN 3.7 g/dl (3.4-5.0); BILIRUBIN,TOTAL 0.3 mg/dL (0.2-1); BLOOD UREA NITROGEN 6.8 mg/dL (7-18); CREATININE 0.6 mg/dL (0.55-1.3); MAGNESIUM 1.9 mg/dL (1.8-2.4); PHOSPHOROUS 2.2 mg/dL (2.5-4.9); POTASSIUM 3.4 mmol/L (3.5-5.1); TOT PROT 7.4 g/dl (6.4-8.2)
[2019-07-21] MEDS ORDERED: PT OWN MED DRAWER 7, Y5N ONE ×4 (08:50→22:11)
[2019-07-21] MEDS ORDERED: METOPROLOL TARTRATE 50 MG TABLET (FP) ONE (08:50)
[2019-07-21] MEDS ORDERED: METOPROLOL TARTRATE 25 MG TABLET (FP) ONE (08:50)
[2019-07-21] MEDS ORDERED: DEXTROSE 5%-WATER - 100 ML IVPB ONE (08:51)
--- NOTE | 2019-07-21 09:18 | EKG ---
Test Reason : Blood Pressure : / mmHG Vent. Rate : 114 BPM Atrial Rate : 114 BPM P-R Int : 146 ms QRS Dur : 090 ms QT Int : 336 ms P-R-T Axes : 031 043 023 degrees QTc Int : 463 ms SINUS TACHYCARDIA POSSIBLE INFERIOR INFARCT , AGE UNDETERMINED ABNORMAL ECG WHEN COMPARED WITH ECG OF 11-MAY-2019 15:23, VENT. RATE HAS INCREASED BY 44 BPM Confirmed by KENDRA BHARDWAJ MD ([id number]) on 07/21/2019 9:18:11 AM Referred By: Confirmed By:KENDRA BHARDWAJ MD
[2019-07-21] MEDS ORDERED: ACETAMINOPHEN 1000 MG/100 ML VIAL (NON FORMULARY) IVPB PRN (09:41)
[2019-07-21] MEDS ORDERED: PANTOPRAZOLE SODIUM 40 MG VIAL IVPUSH SCH (10:00)
[2019-07-21] MEDS ORDERED: PATIENT'S OWN MEDICATION (NON-FORMULARY) (Metoprolol Tartrate [Metoprolol Tartrate] 75 MG) GT SCH (10:00)
[2019-07-21] MEDS ORDERED: levETIRAcetam 500 MG/5 ML ORAL SOLUTION (UNIT-DOSE CUPS) GT SCH ×2 (10:00→22:00)
[2019-07-21] MEDS ORDERED: MULTIVIT-MINERALS ORAL LIQUID GT SCH (10:00)
[2019-07-21] MEDS ORDERED: MAGNESIUM HYDROX 2400MG/30ML ORAL SUSPENSION 30 ML CUP GT SCH (10:00)
[2019-07-21] MEDS: BUDESONIDE 0.5 MG/2 ML INH SUSP VIAL NEB SCH (10:00)
[2019-07-21] MEDS ORDERED: CHOLECALCIFEROL (VIT D3) 1,000 UNIT (25 MCG) TABLET GT SCH (10:00)
[2019-07-21] MEDS ORDERED: amLODIPine BESYLATE 5 MG TABLET (FP) GT SCH (10:00)
[2019-07-21] MEDS ORDERED: levETIRAcetam 500 MG/5 ML INJECTION VIAL IVPB SCH (10:00)
[2019-07-21] MEDS ORDERED: METOPROLOL TARTRATE 50 MG, METOPROLOL TARTRATE 25 MG GT SCH (10:00)
[2019-07-21] MEDS: METOPROLOL TARTRATE 5 MG/5 ML VIAL IVPUSH SCH ×2 (10:36→15:56)
[2019-07-21] MEDS: ENOXAPARIN NA (PORCINE) 40 MG/0.4 ML DISP.SYRIN SQ SCH (10:38)
[2019-07-21] MEDS: OSELTAMIVIR PHOSPHATE 6 MG/1 ML PO SCH ×4 (10:39→22:40)
--- NOTE | 2019-07-21 12:45 | PN ---
Progress Note (short form) - Note Progress Note: ID consult dictated imp/reccd influenza A r/o pneumonia seizure disorder functional quadraplegia tamiflu/zosyn chest ct pending d/w hospitalist Problem List - Problems (1) Influenza A Code(s): J10.1 - FLU DUE TO OTH IDENT INFLUENZA VIRUS W OTH RESP MANIFEST (2) Pneumonia Code(s): J18.9 - PNEUMONIA, UNSPECIFIED ORGANISM (3) Seizure disorder Code(s): G40.909 - EPILEPSY, UNSP, NOT INTRACTABLE, WITHOUT STATUS EPILEPTICUS (4) Functional quadriplegia Code(s): R53.2 - FUNCTIONAL QUADRIPLEGIA
--- NOTE | 2019-07-21 13:22 | PN ---
Physical Exam: SUBJECTIVE: Patient seen and examined. He appears comfortable. Abdomen was distended this morning, but better now after a bowel movement. No seizure activity noted. OBJECTIVE: Vital Signs Period Temp Pulse Resp BP Sys/Osullivan Pulse Ox Last 24 Hr 97.8 F-101.1 F 72-120 14-31 97-159/66-98 96-100 GENERAL: The patient is awake, in no acute distress. LUNGS: Breath sounds equal, clear to auscultation bilaterally, no wheezes, no crackles, no accessory muscle use. HEART: Regular rate and rhythm, S1, S2 without murmur, rub or gallop. ABDOMEN: Soft, nondistended, normoactive bowel sounds, no hepatosplenomegaly, no masses. EXTREMITIES: Contracted, 2+ pulses, warm, well-perfused, no edema. Laboratory Results - last 24 hr 07/20/19 07/20/19 07/20/19 16:00 16:00 16:00 WBC 4.5 RBC 5.06 Hgb 14.6 Hct 44.9 MCV 88.7 MCH 28.8 MCHC 32.5 RDW 13.7 Plt Count 182 MPV 9.2 Absolute Neuts (auto) 3.8 Neutrophils % 83.7 H Lymphocytes % 2.7 L D Monocytes % 13.2 H D Eosinophils % 0.2 D Basophils % 0.2 Nucleated RBC % 0 PT with INR 13.30 H INR 1.13 H PTT (Actin FS) 36.4 VBG pH POC VBG pCO2 POC VBG pO2 VBG HCO3 VBG O2 Sat (Derik) VBG Base Excess Sodium 132 L Potassium 3.8 Chloride 95 L Carbon Dioxide 29 Anion Gap 8 BUN 11.1 Creatinine 0.8 Est GFR (CKD-EPI)AfAm 130.42 Est GFR (CKD-EPI)NonAf 112.53 POC Glucometer Random Glucose 136 H Lactic Acid Calcium 8.8 Phosphorus Magnesium Total Bilirubin 0.2 AST 21 ALT 84 H Alkaline Phosphatase 133 H Troponin I < 0.02 Total Protein 7.7 Albumin 3.7 Urine Color Urine Appearance Urine pH Ur Specific [place] Urine Protein Urine Glucose (UA) Urine Ketones Urine Blood Urine Nitrite Urine Bilirubin Urine Urobilinogen Ur Leukocyte Esterase Influenza A (Rapid) Influenza B (Rapid) 07/20/19 07/20/19 07/20/19 16:00 16:00 16:00 WBC RBC Hgb Hct MCV MCH MCHC RDW Plt Count MPV Absolute Neuts (auto) Neutrophils % Lymphocytes % Monocytes % Eosinophils % Basophils % Nucleated RBC % PT with INR INR PTT (Actin FS) VBG pH 7.41 POC VBG pCO2 49.6 POC VBG pO2 < 49 H VBG HCO3 30.9 H VBG O2 Sat (Derik) 57.3 L VBG Base Excess 5.3 H Sodium Potassium Chloride Carbon Dioxide Anion Gap BUN Creatinine Est GFR (CKD-EPI)AfAm Est GFR (CKD-EPI)NonAf POC Glucometer Random Glucose Lactic Acid 2.6 H* Calcium Phosphorus Magnesium Total Bilirubin AST ALT Alkaline Phosphatase Troponin I Total Protein Albumin Urine Color Yellow Urine Appearance Clear Urine pH 7.5 Ur Specific [place] 1.017 Urine Protein Negative Urine Glucose (UA) Negative Urine Ketones Negative Urine Blood Negative Urine Nitrite Negative Urine Bilirubin Negative Urine Urobilinogen 0.2 Ur Leukocyte Esterase Negative Influenza A (Rapid) Influenza B (Rapid) 07/20/19 07/20/19 07/21/19 16:45 20:18 05:15 WBC 5.3 RBC 4.65 Hgb 13.6 Hct 41.3 MCV 88.7 MCH 29.3 MCHC 33.1 RDW 14.1 Plt Count 184 MPV 9.5 Absolute Neuts (auto) Neutrophils % Lymphocytes % Monocytes % Eosinophils % Basophils % Nucleated RBC % PT with INR INR PTT (Actin FS) VBG pH POC VBG pCO2 POC VBG pO2 VBG HCO3 VBG O2 Sat (Derik) VBG Base Excess Sodium Potassium Chloride Carbon Dioxide Anion Gap BUN Creatinine Est GFR (CKD-EPI)AfAm Est GFR (CKD-EPI)NonAf POC Glucometer Random Glucose Lactic Acid 1.9 Calcium Phosphorus Magnesium Total Bilirubin AST ALT Alkaline Phosphatase Troponin I Total Protein Albumin Urine Color Urine Appearance Urine pH Ur Specific [place] Urine Protein Urine Glucose (UA) Urine Ketones Urine Blood Urine Nitrite Urine Bilirubin Urine Urobilinogen Ur Leukocyte Esterase Influenza A (Rapid) Positive A Influenza B (Rapid) Negative 07/21/19 07/21/19 05:15 11:08 WBC RBC Hgb Hct MCV MCH MCHC RDW Plt Count MPV Absolute Neuts (auto) Neutrophils % Lymphocytes % Monocytes % Eosinophils % Basophils % Nucleated RBC % PT with INR INR PTT (Actin FS) VBG pH POC VBG pCO2 POC VBG pO2 VBG HCO3 VBG O2 Sat (Derik) VBG Base Excess Sodium 140 Potassium 3.4 L Chloride 101 Carbon Dioxide 29 Anion Gap 10 BUN 6.8 L Creatinine 0.6 Est GFR (CKD-EPI)AfAm 146.79 Est GFR (CKD-EPI)NonAf 126.65 POC Glucometer 90 Random Glucose 89 Lactic Acid Calcium 9.0 Phosphorus 2.2 L Magnesium 1.9 Total Bilirubin 0.3 AST 27 ALT 73 H Alkaline Phosphatase 120 H Troponin I Total Protein 7.4 Albumin 3.7 Urine Color Urine Appearance Urine pH Ur Specific [place] Urine Protein Urine Glucose (UA) Urine Ketones Urine Blood Urine Nitrite Urine Bilirubin Urine Urobilinogen Ur Leukocyte Esterase Influenza A (Rapid) Influenza B (Rapid) Active Medications Generic Name Dose Route Start Last Admin Trade Name Freq PRN Reason Stop Dose Admin Acetaminophen 1,000 mg 07/21/19 09:41 07/21/19 10:36 Ofirmev Injection - IVPB 1,000 mg Q6H PRN Administration FEVER Albuterol Sulfate 1 amp 07/20/19 22:12 07/21/19 11:31 Ventolin 0.083% Nebulizer Soln - NEB 1 amp Q6H PRN Administration SHORT OF BREATH/WHEEZING Budesonide 1 amp 07/21/19 10:00 07/21/19 10:00 Pulmicort 0.5 Mg Nebulizer - NEB Not Given DAILY TRINO Enoxaparin Sodium 40 mg 07/21/19 10:00 07/21/19 10:38 Lovenox - SQ 40 mg DAILY TRINO Administration Sodium Chloride 1,000 mls @ 83 mls/hr 07/20/19 22:00 07/20/19 22:15 Normal Saline - IV 83 mls/hr ASDIR TRINO Administration Piperacillin Sod/Tazobactam 50 mls @ 100 mls/hr 07/21/19 02:00 07/21/19 10:37 Sod 3.375 gm/ Dextrose IVPB 07/21/19 18:29 100 mls/hr Q8H-IV TRINO Administration Protocol Piperacillin Sod/Tazobactam 50 mls @ 100 mls/hr 07/22/19 02:00 Sod 3.375 gm/ Dextrose IVPB Q8H-IV TRINO Protocol Lamotrigine 100 mg 07/21/19 06:00 07/21/19 13:16 Lamictal - GT Not Given TID TRINO Levetiracetam 1,000 mg 07/21/19 10:00 07/21/19 10:35 Keppra Injection - IVPB 1,000 mg BID TRINO Administration Metoprolol Tartrate 5 mg 07/21/19 09:45 07/21/19 10:36 Lopressor Injection - IVPUSH 5 mg Q6H TRINO Administration Oseltamivir Phosphate 75 mg 07/20/19 22:00 07/21/19 10:39 Tamiflu Oral Suspension - PO 07/25/19 21:59 Not Given BID TRINO Pantoprazole Sodium 40 mg 07/21/19 10:00 07/21/19 10:38 Protonix Iv IVPUSH 40 mg DAILY TRINO Administration ASSESSMENT/PLAN: This is a 38 year old man with a history of congenital quadriplegia, epilepsy, MR who presented to the ED from [place] with worsening shortness of breath. 1. Acute hypoxic respiratory failure secondary to severe sepsis from influenza A and possible pneumonia - Continue Tamiflu, Zosyn, IV fluid - Follow-up final read of chest CT 2. Seizure disorder with breakthrough seizure - No further seizures - Continue Keppra, Lamictal - Neurology evaluation 3. HTN - Continue Norvasc, Lopressor, HCTZ 4. Ileus - Appears resolved 5. Developmental diability with congenital quadriplegia 6. Nutrition - Recheck KUB - Resume Osmolite tube feeds if ileus resolved Visit type - Emergency Visit Emergency Visit: Yes ED Registration Date: 07/20/19 Care time: The patient presented to the Emergency Department on the above date and was hospitalized for further evaluation of their emergent condition. - New Patient This patient is new to me today: Yes Date on this admission: 07/21/19 - Critical Care Critical Care patient: No - Discharge Referral Referred to [facility] Med P.C.: No
--- NOTE | 2019-07-21 13:29 | CON.NEURO ---
Consult Consult Specialty:: Moises Referred by:: ER - History of Present Illness History of Present Illness: 8-year-old right-handed man with multiple medical problem including mental retardation questionable history of epilepsy came in with fever patient with witnessed seizure lasted 2 minutes patient's seizure stopped in the emergency room patient was loaded with Keppra patient was admitted to the medical floor - History Source History Provided By: Patient Limitations to Obtaining History: Clinical Condition - Past Medical History CARE PROFESSIONALS: Yes: Other (mental retardation congenital quadraplegia, seizure disorder, obstructive hydrocephalus) Cardio/Vascular: Yes: HTN Additional Medical History: Mental Retardation, quadraplegia - Alcohol/Substance Use Hx Alcohol Use: No - Smoking History Smoking history: Unknown if ever smoked Have you smoked in the past 12 months: No - Social History Usual Living Arrangement: Residential ADL: Support Services History of Recent Travel: No Home Medications - Allergies Allergies/Adverse Reactions: Allergies Allergy/AdvReac Type Severity Reaction Status Date / Time No Known Allergies Allergy Verified 07/20/19 17:02 - Home Medications Home Medications: Ambulatory Orders Albuterol 0.083% Nebulizer Michelle [Ventolin 0.083% Nebulizer Soln -] 1 neb NEB Q6H PRN 07/20/19 Amlodipine Besylate 5 mg GT DAILY 07/20/19 Bisacodyl [Dulcolax -] 10 mg PO ASDIR 07/20/19 Budesonide [Pulmicort 0.5 mg Nebulizer -] 1 neb NEB DAILY 07/20/19 Calcium Carbonate/Vitamin D3 [Oystercal-D 500 mg-400 Unit Tb] 1 each GT HS 07/20 Calcium Carbonate/Vitamin D3 [Oystercal-D 500 mg-400 Unit Tb] 2 each GT DAILY Cholecalciferol (Vitamin D3) [Vitamin D3 -] 1,000 unit GT DAILY 07/20/19 Famotidine 20 mg GT HS 07/20/19 Ferrous Sulfate 220 mg GT HS 07/20/19 Fexofenadine HCl 60 mg PO BID 07/20/19 Folic Acid 1 mg GT HS 07/20/19 Hydrochlorothiazide 25 mg GT HS 07/20/19 Lamotrigine 100 mg GT TID 07/20/19 Magnesium Hydroxide [Milk of Magnesia] 15 ml GT BID 07/20/19 Methylcellulose [Citrucel] 1,000 mg GT HS 07/20/19 Metoprolol Tartrate 75 mg GT BID 07/20/19 Multivitamin [Multiple Vitamins] 1 each GT DAILY 07/20/19 Polyethylene Glycol 3350 [Glycolax] 119 gm GT HS 07/20/19 Sennosides [Senna] 2 tab PO HS 07/20/19 Levetiracetam 1,000 mg GT BID 07/21/19 Family Medical History Family History: Unremarkable Review of Systems Unable to obtain ROS, reason: ? Physical Exam-Neuro Vital Signs: Vital Signs Temperature 100.3 F H 07/21/19 10:00 Pulse Rate 110 H 07/21/19 10:36 Respiratory Rate 07/21/19 10:00 Blood Pressure 159/94 07/21/19 10:00 O2 Sat by Pulse Oximetry (%) 99 07/21/19 10:00 Labs: CBC, BMP 07/21/19 05:15 07/21/19 05:15 INR, PTT INR 1.13 (0.83-1.09) H 07/20/19 16:00 Problem List - Problems (1) Seizure disorder Assessment/Plan: history of cerebral palsymost probably associated with mental retardation now with fever and in no onset seizure patient is not actively seizing . Seizure precautions. 2. Ativan when necessary seizure. 3. Continue Keppra 500 mgIV every 12. 4. CAT scan of the head to be compare to the one that was done in July 2018. Thanks Patricia De Leon MD Code(s): G40.909 - EPILEPSY, UNSP, NOT INTRACTABLE, WITHOUT STATUS EPILEPTICUS
--- NOTE | 2019-07-21 15:06 | CONS ---
DATE OF CONSULTATION: DATE OF DICTATION: 07/21/2019 HISTORY OF PRESENT ILLNESS: This is a 38-year-old man admitted from the [facility]. He has a history of congenital quadriplegia , mental retardation with shortness of breath. He was noted to be hypoxic and tachycardic with a fever of 100.2. His influenza screen was positive for influenza A. He had a witnessed seizure. He was loaded with Keppra and admitted. I am asked to see him for further evaluation. Patient is unable to contribute to the history. PAST MEDICAL HISTORY: He has a past medical history of congenital quadriplegia, epilepsy MR. He has had a right hip ORIF and he has a G-tube. SOCIAL HISTORY: He is a long-term resident of [facility]. ALLERGIES: He has no known drug allergies. MEDICATIONS: Include amlodipine, calcium, vitamin D, famotidine, ferrous sulfate, folic acid, hydrochlorothiazide, lamotrigine, metoprolol, multivitamins and Senna. REVIEW OF SYSTEMS: Is not obtainable. He was noted to have some abdominal distension that resolved after he had a large bowel movement. His last admission to [facility] was in May when he was admitted for 4 days from the first to the fourth and that admission was for shortness of breath and wheezing and it was treated as an asthma exacerbation. PHYSICAL EXAMINATION: Vitals: On physical exam his temperature maximum is 101.1. Current temperature is 100.3. Pulse is 110, blood pressure 169/94. Respiratory rate is 20. He is saturating 99% on 3 L. HEENT: He is normocephalic. His eyes are anicteric. Lungs: His lungs have diminished breath sounds at the bases. Heart: His heart is regular rate and rhythm. Abdomen: Soft. He has a G-tube in place. Extremities: His extremities are without edema. LABORATORY DATA: His white count is 5.3, hemoglobin is 13.6, platelets are 194. BUN is 6.8 and creatinine 0.6. His lactic acid was 2.6, repeat is 1.9. Urinalysis was negative. Influenza screen was positive. Cultures are pending. He has a CT that is pending as well. Admission x-ray showed a weak inspiration with no carotid infiltrate. SUMMARY: In summary, this is a 38-year-old man admitted with influenza A, possible pneumonia. He also had a witnessed seizure in the ER and he is going to be seen by Neurology. He does have a known seizure disorder. RECOMMENDATIONS: Will continue the Tamiflu and Zosyn as ordered. Chest CT is pending. I am sure he may have aspirated during the seizure. The case was discussed with the hospitalist to follow up cultures. Further recommendations to follow. MOIRA ZARATE M.D. [id number] MTDD
[2019-07-21] MEDS ORDERED: PATIENT'S OWN MEDICATION (NON-FORMULARY) (Methylcellulose [Citrucel] 1,000 MG) GT SCH (22:00)
[2019-07-21] MEDS ORDERED: POLYETHYLENE GLYCOL 3350 255 GM BTL PO SCH (22:00)
[2019-07-21] MEDS ORDERED: HYDROCHLOROTHIAZIDE 25 MG TABLET (FP) GT SCH (22:00)
[2019-07-21] MEDS ORDERED: FAMOTIDINE 20 MG TABLET PEG SCH (22:00)
[2019-07-21] MEDS ORDERED: FERROUS SO4 300 MG/5 ML ORAL SOLN UNIT DOSE CUPS GT SCH (22:00)
[2019-07-21] MEDS ORDERED: SENNOSIDES 8.8 MG/5 ML BULK BOTTLE GT SCH (22:00)
[2019-07-21] MEDS ORDERED: FOLIC ACID 1 MG TABLET (FP) GT SCH (22:00)
[2019-07-21] MEDS: FERROUS SO4 300 MG/5 ML ORAL SOLN UNIT DOSE CUPS GT SCH (22:39)
[2019-07-21] MEDS: SENNOSIDES 8.8 MG/5 ML BULK BOTTLE GT SCH (22:39)
[2019-07-21] MEDS: ACETAMINOPHEN 650 MG/20.3 ML ORAL SOLUTION (CUPS) GT PRN (22:40)
[2019-07-21] MEDS: levETIRAcetam 500 MG/5 ML ORAL SOLUTION (UNIT-DOSE CUPS) GT SCH (22:40)
[2019-07-21] MEDS: METOPROLOL TARTRATE 50 MG TABLET (FP) GT SCH (22:41)
[2019-07-21] MEDS: HYDROCHLOROTHIAZIDE 25 MG TABLET (FP) GT SCH (22:41)
[2019-07-21] MEDS: FOLIC ACID 1 MG TABLET (FP) GT SCH (22:41)
[2019-07-21] MEDS: MAGNESIUM HYDROX 2400MG/30ML ORAL SUSPENSION 30 ML CUP GT SCH (22:41)
[2019-07-21] MEDS: POLYETHYLENE GLYCOL 3350 119 GM BTL GT SCH (22:42)
[2019-07-21] MEDS: FAMOTIDINE 40 MG/5 ML ORAL SUSPENSION PEG SCH (22:43)
[2019-07-21] MEDS: SODIUM CHLORIDE 1,000 ML IV SCH (22:43)
[2019-07-21] MEDS: CALCIUM CARBONATE SUSPENSION - 500 MG/5 ML ML GT SCH (22:48)
[2019-07-22] MEDS ORDERED: PIPERACILLIN/TAZOBACTAM 3.375 GM VIAL IVPB ONE ×3 (01:36→17:15)
[2019-07-22] MEDS ORDERED: DEXTROSE 5%-WATER - 50 ML IVPB ONE ×3 (01:36→17:16)
[2019-07-22] MEDS: PIPERACILLIN/TAZOB 3.375 GM 3.375 GM in DEXTROSE 5%-WATER - 50 ML IVPB SCH ×3 (01:51→17:25)
[2019-07-22] MEDS ORDERED: PIPERACILLIN/TAZOB 3.375 GM 3.375 GM in DEXTROSE 5%-WATER - 50 ML IVPB SCH (02:00)
[2019-07-22] MEDS: lamoTRIgine 100 MG TABLET GT SCH ×3 (05:49→22:36)
--- NOTE | 2019-07-22 09:16 | PN ---
Teaching Attending Note Name of Resident: Sean Mcgrath Seen and examined; please see resident note for further historical information. I personally verified all mederos historical information and exam findings. Personally interpreted all imaging and diagnostics and reviewed appropriate consults. I reviewed all labs and vital signs as per resident note and EMR as documented. I agree with the above assessment and plan unless supplemented by myself in the following. No seizure activity noted, distention that was described in yesterday's encounter was improved. He is saturating 96% on 3 L via nasal cannula and has been afebrile overnight with stable blood pressures. Continues on Tamiflu. No culture growth to date. Could not obtain 10 item review of systems secondary to underlying clinical condition. VS, labs, imaging reviewed NAD, limited communication secondary to underlying medical issues RRR s1/2 no mgr Normal muscle tone, moves all 5 extremities with normal apparent strength Neck is supple, trachea midline, no grabiel LN Lungs CTAB with sym expansion NT ND +BS no grabiel organomegaly CN2-12 wnl; no FND NC AT EOMI PERRLA Normal mood, appropriate behavior, euthymic affect No skin breakdown or rashes noted Chest CT reviewed, lower lobe bronchitis with pneumonia as described with follow -up recommended after treatment to rule out underlying neoplasia. Recommended follow-up abdominal imaging to rule out ileus or obstruction. Microbiology without growth to date. -CT scan of head to be compared to the prior CT scan from July [address] Weston, CT head pending -Abdominal portable study reveals severe scoliosis with convexity to the left, large heart, generalized abdominal distention compatible with ileus or distal obstruction. No sign of fecal impaction or gross constipation. Previous femoral hardware insertion with potential dislocation of left hip and CT of hip recommended. -Due to cardiomegaly seen on chest CT, echocardiogram is obtained. Pending. BNP is pending as well. Assessment and plan: Patient presents with acute respiratory failure secondary to likely influenza with pneumonia given the left lower lobe findings. Infectious disease is following and recommends Tamiflu and Zosyn and believes that he likely aspirated during the seizure. Neurology has been consulted for the seizure that occurred faustino-admission and recommended continuing the patient on 500 mg IV Keppra twice daily. He has potential ileus versus distal obstruction and CT of the abdomen and head are pending. Radiology also recommended further evaluation to ensure that there is no dislocation of the prior hardware inserted with the femoral issue. Problems include: Acute hypoxic respiratory failure secondary to influenza, pneumonia, likely aspiration pneumonia/pneumonitis. Continue as needed O2 and antibiotics as per infectious disease, follow-up microbiology. Wean as tolerated. Consider pulmonary consultation. Sepsis secondary to influenza/pneumonia, sepsis resolved Seizure disorder with breakthrough seizure, continue IV Keppra per neurology, Lamictal. Follow-up CT head as recommended by Dr. Weston. Ileus, appeared resolved yesterday per Dr. Patterson Continue to monitor for bowel movement. If he appears uncomfortable can obtain further imaging. Potential hip hardware issue, CT pending. If any issues detected we will consult orthopedic surgery. Functional quadriplegia secondary to developmental delay. Cardiomegaly seen on CT, echocardiogram and BNP pending Resume tube feeds if ileus is resolved, continue to monitor on the floor. Disposition will entail the patient being successfully weaned from oxygen.
[2019-07-22] MEDS: levETIRAcetam 500 MG/5 ML ORAL SOLUTION (UNIT-DOSE CUPS) GT SCH ×2 (09:20→22:37)
[2019-07-22] MEDS: MULTIVIT-MINERALS ORAL LIQUID GT SCH (09:21)
[2019-07-22] MEDS: OSELTAMIVIR PHOSPHATE 6 MG/1 ML PO SCH ×2 (09:22→22:37)
[2019-07-22] MEDS: ENOXAPARIN NA (PORCINE) 40 MG/0.4 ML DISP.SYRIN SQ SCH (09:23)
[2019-07-22] MEDS: METOPROLOL TARTRATE 50 MG TABLET (FP) GT SCH ×2 (09:24→22:36)
[2019-07-22] MEDS: MAGNESIUM HYDROX 2400MG/30ML ORAL SUSPENSION 30 ML CUP GT SCH ×2 (09:24→22:37)
[2019-07-22] MEDS: CHOLECALCIFEROL (VIT D SOLUTION) 400 UNIT/1 ML DROPS GT SCH (09:25)
[2019-07-22] MEDS: amLODIPine BESYLATE 5 MG TABLET (FP) GT SCH (09:25)
[2019-07-22] MEDS: CALCIUM CARBONATE SUSPENSION - 500 MG/5 ML ML GT SCH ×2 (09:29→22:38)
[2019-07-22] MEDS: BUDESONIDE 0.5 MG/2 ML INH SUSP VIAL NEB SCH (09:35)
--- NOTE | 2019-07-22 13:17 | PN ---
Physical Exam: SUBJECTIVE: Patient seen and examined in exam bed. No acute distress. OBJECTIVE: Vital Signs Period Temp Pulse Resp BP Sys/Osullivan Pulse Ox Last 24 Hr 98.3 F-99.8 F 63-100 20-20 127-164/71-111 96-96 GENERAL: Awake, alert, in no acute distress. HEAD: Microcephalic, atraumatic EYES: Pupils equal, round and reactive to light, sclera anicteric, conjunctiva clear. EARS, NOSE, THROAT: Oropharynx clear without exudates. Dry mucous membranes. NECK: Supple without lymphadenopathy, or JVD. LUNGS: Scattered wheezing, and rhonchi bilaterally. No accessory muscle use. HEART: Regular rate and rhythm, normal S1 and S2 without murmur, rub or gallop. ABDOMEN: Soft, nontender, not distended. Gtube in situ; site clean dry. Normoactive bowel sounds x4 quadrants, no guarding, no rebound. EXTREMITIES: Contracted. 2+ pulses, warm, well-perfused. No peripheral edema. SKIN: Warm, dry. Active Medications Generic Name Dose Route Start Last Admin Trade Name Freq PRN Reason Stop Dose Admin Acetaminophen 650 mg 07/21/19 16:02 07/21/19 22:40 Tylenol Oral Solution - GT 650 mg Q4H PRN Administration FEVER Albuterol Sulfate 1 amp 07/20/19 22:12 07/21/19 11:31 Ventolin 0.083% Nebulizer Soln - NEB 1 amp Q6H PRN Administration SHORT OF BREATH/WHEEZING Amlodipine Besylate 5 mg 07/22/19 10:00 07/22/19 09:25 Norvasc - GT 5 mg DAILY TRINO Administration Budesonide 1 amp 07/21/19 10:00 07/22/19 09:35 Pulmicort 0.5 Mg Nebulizer - NEB 1 amp DAILY TRINO Administration Calcium Carbonate 500 mg 07/21/19 22:00 07/22/19 09:29 Calcium Carb Oral Suspension - GT 500 mg BID TRINO Administration Cholecalciferol 1,000 unit 07/22/19 10:00 07/22/19 09:25 Vitamin D3 Oral Solution - GT 1 ml DAILY TRINO Administration Enoxaparin Sodium 40 mg 07/21/19 10:00 07/22/19 09:23 Lovenox - SQ 40 mg DAILY TRINO Administration Famotidine 20 mg 07/21/19 22:00 07/21/19 22:43 Pepcid PEG 20 mg HS TRINO Administration Ferrous Sulfate 300 mg 07/21/19 22:00 07/21/19 22:39 Feosol GT 300 mg HS TRINO Administration Folic Acid 1 mg 07/21/19 22:00 07/21/19 22:41 Folic Acid - GT 1 mg HS TRINO Administration Hydrochlorothiazide 25 mg 07/21/19 22:00 07/21/19 22:41 Hctz - GT 25 mg HS TRINO Administration Sodium Chloride 1,000 mls @ 83 mls/hr 07/20/19 22:00 07/21/19 22:43 Normal Saline - IV Not Given ASDIR TRINO Piperacillin Sod/Tazobactam 50 mls @ 100 mls/hr 07/21/19 18:00 07/22/19 09:23 Sod 3.375 gm/ Dextrose IVPB 100 mls/hr Q8H-IV TRINO Administration Protocol Lamotrigine 100 mg 07/21/19 06:00 07/22/19 05:49 Lamictal - GT 100 mg TID TRINO Administration Levetiracetam 500 mg 07/21/19 22:00 07/22/19 09:20 Keppra Oral Solution - GT 500 mg BID TRINO Administration Magnesium Hydroxide 15 ml 07/21/19 22:00 07/22/19 09:24 Milk Of Magnesia - GT 15 ml BID TRINO Administration Metoprolol Tartrate 75 mg 07/21/19 22:00 07/22/19 09:24 Lopressor - GT 75 mg BID TRINO Administration Multivitamins/Minerals 15 ml 07/22/19 10:00 07/22/19 09:21 Certavite-Antioxidant Liquid GT 15 ml DAILY TRINO Administration Oseltamivir Phosphate 75 mg 07/20/19 22:00 07/22/19 09:22 Tamiflu Oral Suspension - PO 07/25/19 21:59 6 ml BID TRINO Administration Polyethylene Glycol 17 gm 07/21/19 22:00 07/21/19 22:42 Miralax (For Daily Use) - GT 17 gm HS TRINO Administration Senna 8.8 mg 07/21/19 22:00 07/21/19 22:39 Senna Oral Solution - GT 8.8 mg HS TRINO Administration ASSESSMENT/PLAN: Patient is a 38 year old male with history of congenital quadriplegia, epilepsy , MR presents from [facility] due to worsening shortness of breath. Acute hopoxic respiratory distress, secondary to Infleunza A -Infleunza A positive in ED -CT chest reveals no acute intracranial pathology. -Continue Zosyn 3.375grams IV Q8 hours (day #2) -Oseltamivir 75mg GT Liquid BID (day #2) -Lactic Acid resolved 2.6 -> 1.9 -Ofirmev 1000mg IV Q6 hours for fever Epilepsy -Continue Lamictal, Keppra. Follow levels. -Neurology evaluation (Dr. De Leon) appreciated. -Head CT reveals -Diazepam PRN -Seizure precautions Hypertension -Continue Amlodipine and Metoprolol, HCTZ Illeus -CT abdomen pelvis reveals no intraabdominal pathology. Fecal impaction noted. Will initiate Miralax, senna, Fleet enema. Transaminitis -LFTs at baseline -Patient has been worked up in the past with RUQ US revealing cholelithiasis, contracted gallbladder -Patient was evaluated by Dr. Sandoval in past, noted endoscopic ultrasound to be considered for further evaluation at [facility]. -Follow transaminases FEN -IV normal saline at 83mL/ hour -Follow MP -Jevity tube feeds; initiated at lowest rate, to titrate accordingly. Prophylaxis -Lovenox 40mg subq daily Disposition -Continue care in medical- surgical floor Visit type - Emergency Visit Emergency Visit: Yes ED Registration Date: 07/20/19 Care time: The patient presented to the Emergency Department on the above date and was hospitalized for further evaluation of their emergent condition. - New Patient This patient is new to me today: No - Critical Care Critical Care patient: No - Discharge Referral Referred to [facility] Med P.C.: No ATTENDING PHYSICIAN STATEMENT I saw and evaluated the patient. I reviewed the resident's note and discussed the case with the resident. I agree with the resident's findings and plan as documented. SUBJECTIVE: OBJECTIVE: ASSESSMENT AND PLAN:
--- NOTE | 2019-07-22 13:24 | PN ---
Progress Note (short form) - Note Progress Note: resting comfortably Vital Signs Period Temp Pulse Resp BP Sys/Osullivan Pulse Ox Last 24 Hr 98.3 F-99.8 F 63-100 20-20 127-164/71-111 96-96 cor-rrr lungs decreased bs at bases abd soft,mild distention, NT ext no edema CBC, BMP 07/21/19 05:15 07/21/19 05:[address]- pneumonia-bilateral lower lobe infiltrates abd/pelvis ct- fecal impaction Microbiology 07/20/19 16:00 Urine - Urine - Catheterized Urine Culture - Final NO GROWTH OBTAINED 07/20/19 16:00 Blood - Peripheral Venous Blood Culture - Preliminary NO GROWTH OBTAINED AFTER 24 HOURS, INCUBATION TO CONTINUE FOR 4 DAYS. 07/20/19 16:00 Blood - Peripheral Venous Blood Culture - Preliminary NO GROWTH OBTAINED AFTER 24 HOURS, INCUBATION TO CONTINUE FOR 4 DAYS. a/p influenza A r/o pneumonia seizure disorder fecal impaction tamiflu/zosyn to continue
[2019-07-22] MEDS ORDERED: PT OWN MED DRAWER 7, Y5N ONE (21:55)
[2019-07-22] MEDS: POLYETHYLENE GLYCOL 3350 119 GM BTL GT SCH (22:35)
[2019-07-22] MEDS: FOLIC ACID 1 MG TABLET (FP) GT SCH (22:36)
[2019-07-22] MEDS: FERROUS SO4 300 MG/5 ML ORAL SOLN UNIT DOSE CUPS GT SCH (22:36)
[2019-07-22] MEDS: HYDROCHLOROTHIAZIDE 25 MG TABLET (FP) GT SCH (22:36)
[2019-07-22] MEDS: SODIUM CHLORIDE 1,000 ML IV SCH (22:37)
[2019-07-22] MEDS: SENNOSIDES 8.8 MG/5 ML BULK BOTTLE GT SCH (22:37)
[2019-07-22] MEDS: FAMOTIDINE 40 MG/5 ML ORAL SUSPENSION PEG SCH (22:38)
[2019-07-23] MEDS ORDERED: DEXTROSE 5%-WATER - 50 ML IVPB ONE ×3 (01:24→13:06)
[2019-07-23] MEDS ORDERED: PIPERACILLIN/TAZOBACTAM 3.375 GM VIAL IVPB ONE ×3 (01:24→13:06)
[2019-07-23] MEDS: PIPERACILLIN/TAZOB 3.375 GM 3.375 GM in DEXTROSE 5%-WATER - 50 ML IVPB SCH ×3 (01:40→17:36)
[2019-07-23] MEDS: lamoTRIgine 100 MG TABLET GT SCH ×3 (05:38→22:07)
[2019-07-23] MEDS ORDERED: PT OWN MED DRAWER 7, Y5N ONE ×3 (07:55→21:31)
[2019-07-23] MEDS: BUDESONIDE 0.5 MG/2 ML INH SUSP VIAL NEB SCH (09:05)
[2019-07-23] MEDS: METOPROLOL TARTRATE 50 MG TABLET (FP) GT SCH ×2 (11:06→22:06)
[2019-07-23] MEDS: amLODIPine BESYLATE 5 MG TABLET (FP) GT SCH (11:07)
[2019-07-23] MEDS: ENOXAPARIN NA (PORCINE) 40 MG/0.4 ML DISP.SYRIN SQ SCH (11:07)
[2019-07-23] MEDS: MAGNESIUM HYDROX 2400MG/30ML ORAL SUSPENSION 30 ML CUP GT SCH ×2 (11:07→22:08)
[2019-07-23] MEDS: MULTIVIT-MINERALS ORAL LIQUID GT SCH (11:10)
[2019-07-23] MEDS: levETIRAcetam 500 MG/5 ML ORAL SOLUTION (UNIT-DOSE CUPS) GT SCH ×2 (11:10→22:07)
[2019-07-23] MEDS: CALCIUM CARBONATE SUSPENSION - 500 MG/5 ML ML GT SCH ×2 (11:12→22:07)
[2019-07-23] MEDS: CHOLECALCIFEROL (VIT D SOLUTION) 400 UNIT/1 ML DROPS GT SCH (11:13)
[2019-07-23] MEDS: ACETAMINOPHEN 650 MG/20.3 ML ORAL SOLUTION (CUPS) GT PRN ×2 (11:14→14:47)
[2019-07-23] MEDS: OSELTAMIVIR PHOSPHATE 6 MG/1 ML PO SCH ×2 (11:20→22:09)
--- NOTE | 2019-07-23 12:43 | CON.PULM ---
Consult Consult Specialty:: PULMONARY Referred by:: Dr Looney Reason for Consultation:: pneumonia - History of Present Illness Chief Complaint: shortness of breath History of Present Illness: 38yo male from [place] with h/o HTN, mental retardation, quadriplegia, seizure disorder who was transferred for worsening shortness of breath. Found to be hypoxic and febrile. Serology positive for Influenza A. Pt unable to provide further history at this time. Also noted to have seizure activity in the ER. Chest imaging showing bibasilar infiltrates. - History Source History Provided By: Medical Record Limitations to Obtaining History: Poor Historian - Past Medical History [employer]: Yes: Other (mental retardation congenital quadraplegia, seizure disorder, obstructive hydrocephalus) Cardio/Vascular: Yes: HTN Additional Medical History: Mental Retardation, quadraplegia - Alcohol/Substance Use Hx Alcohol Use: No - Smoking History Smoking history: Unknown if ever smoked Have you smoked in the past 12 months: No - Social History Usual Living Arrangement: Long-Term ADL: Support Services History of Recent Travel: No Home Medications - Allergies Allergies/Adverse Reactions: Allergies Allergy/AdvReac Type Severity Reaction Status Date / Time No Known Allergies Allergy Verified 07/20/19 17:02 - Home Medications Home Medications: Ambulatory Orders Albuterol 0.083% Nebulizer Michelle [Ventolin 0.083% Nebulizer Soln -] 1 neb NEB Q6H PRN 07/20/19 Amlodipine Besylate 5 mg GT DAILY 07/20/19 Bisacodyl [Dulcolax -] 10 mg PO ASDIR 07/20/19 Budesonide [Pulmicort 0.5 mg Nebulizer -] 1 neb NEB DAILY 07/20/19 Calcium Carbonate/Vitamin D3 [Oystercal-D 500 mg-400 Unit Tb] 1 each GT HS 07/20 Calcium Carbonate/Vitamin D3 [Oystercal-D 500 mg-400 Unit Tb] 2 each GT DAILY Cholecalciferol (Vitamin D3) [Vitamin D3 -] 1,000 unit GT DAILY 07/20/19 Famotidine 20 mg GT HS 07/20/19 Ferrous Sulfate 220 mg GT HS 07/20/19 Fexofenadine HCl 60 mg PO BID 07/20/19 Folic Acid 1 mg GT HS 07/20/19 Hydrochlorothiazide 25 mg GT HS 07/20/19 Lamotrigine 100 mg GT TID 07/20/19 Magnesium Hydroxide [Milk of Magnesia] 15 ml GT BID 07/20/19 Methylcellulose [Citrucel] 1,000 mg GT HS 07/20/19 Metoprolol Tartrate 75 mg GT BID 07/20/19 Multivitamin [Multiple Vitamins] 1 each GT DAILY 07/20/19 Polyethylene Glycol 3350 [Glycolax] 119 gm GT HS 07/20/19 Sennosides [Senna] 2 tab PO HS 07/20/19 Levetiracetam 1,000 mg GT BID 07/21/19 Review of Systems Unable to obtain ROS, reason: pt nonverbal Physical Exam Vital Sings: Vital Signs Temperature 98.7 F 07/23/19 06:00 Pulse Rate 72 07/23/19 06:00 Respiratory Rate 07/23/19 06:00 Blood Pressure 140/93 07/23/19 06:00 O2 Sat by Pulse Oximetry (%) 96 07/22/19 22:00 Constitutional: Yes: Calm Eyes: Yes: Conjunctiva Clear, EOM Intact HENT: Yes: Atraumatic Neck: Yes: Supple, Trachea Midline Cardiovascular: Yes: Regular Rate and Rhythm Respiratory: Yes: Rhonchi, Wheezes ...Clubbing: No Gastrointestinal: Yes: Normal Bowel Sounds, Soft. No: Tenderness Edema: No Labs: CBC, BMP 07/21/19 05:15 07/21/19 05:15 Imaging - Results Chest X-ray: Report Reviewed, Image Reviewed Cat Scan: Report Reviewed, Image Reviewed (bibasilar infiltrates) Problem List - Problems (1) Influenza A Code(s): J10.1 - FLU DUE TO OTH IDENT INFLUENZA VIRUS W OTH RESP MANIFEST (2) Pneumonia Code(s): J18.9 - PNEUMONIA, UNSPECIFIED ORGANISM Assessment/Plan Influenza A Pneumonia Sepsis Acute Bronchospasm Cerebral Palsy Mental Retardation Functional Quadriplegia Seizure Disorder HTN - antibiotics per ID - tamiflu - inhaled bronchodilators - short course of medrol 24-48 hrs - O2 to keep Spo2 >90% - aspiration precautions - DVT prophylaxis Thank you for this consult Mark Powell MD
--- NOTE | 2019-07-23 13:07 | PROC ---
Procedure Note Procedure: After several failed attempts by nursing, surgical team was asked to place IV in patient with difficult access. Under sterile prep and technique. 22G IV was placed into the patient's left foot at the dorsal aspect. the line aspirated and flushed with ease. Line was secured. Ok to use line
[2019-07-23] MEDS: methylPREDNISolone NA SUCC 40 MG/1 ML VIAL IVPUSH SCH (14:10)
--- NOTE | 2019-07-23 14:44 | PN ---
Teaching Attending Note Name of Resident: Jeff Ramires ATTENDING PHYSICIAN STATEMENT I saw and evaluated the patient. I reviewed the resident's note and discussed the case with the resident. I agree with the resident's findings and plan as documented. Seen and examined; please see resident note for further historical information. I personally verified all mederos historical information and exam findings. Personally interpreted all imaging and diagnostics and reviewed appropriate consults. I reviewed all labs and vital signs as per resident note and EMR as documented. I agree with the above assessment and plan unless supplemented by myself in the following. IV access was lost during the last shift, surgical consult placed IV catheter and foot. Appreciate. Due to clinical condition cannot reliably obtain review of systems. VS, labs, imaging reviewed NAD, AAOx0, resting comfortably in bed His neurologic/mental status baseline. RRR s1/2 no mgr Normal muscle tone, moves all 5 extremities with normal apparent strength Neck is supple, trachea midline, no grabiel LN Poor respiratory effort with somewhat improved scattered rales; with sym expansion NT ND +BS no grabiel organomegaly CN2-12 wnl; no FND NC AT EOMI PERRLA No agitation, cannot complete full psychiatric evaluation secondary to underlying developmental disability No skin breakdown or rashes noted ASSESSMENT AND PLAN: Patient remains on broad-spectrum antibiotics for potential bacterial pneumonia/ influenza pneumonia with potential aspiration component. They have no new issues and remain. No seizure activity is noted, we will continue them on their home antiepileptics and antibiotics as per infectious disease. Pulmonary medicine consulted to help with the weaning. Recommended short course of Medrol with inhaled bronchodilators. Appreciate pulmonary medicine input in the care of this patient Problems include: Sepsis, resolved Acute respiratory failure, improved, hypoxia secondary to underlying pulmonary condition with pneumonia with positive influenza Pneumonia secondary to influenza versus CAP Per pulmonary, acute bronchospasm, on short course of Medrol. Cerebral palsy/mental retardation/functional quadriplegia Seizure disorder on home medications, continue seizure precautions. Hypertension history, stable pressures, monitor. Cardiomegaly was seen on the chest imaging so we will go ahead and follow-up an echocardiogram but I doubt any underlying CHF given the patient's age, comorbidities, underlying medical history but we do not have a family history provided. Full Code
[2019-07-23] MEDS: ALBUTEROL SO4 2.5/IPRATROPIUM 0.5 INH SOL 3 ML VIAL.NEB. NEB SCH ×2 (16:26→20:50)
[2019-07-23 17:37] LABS: BASO % 0.2 % (0-2.0); EOS % 0.5 % (0-4.5); HEMATOCRIT 41.2 % (35.4-49); HEMOGLOBIN 13.7 GM/dL (11.7-16.9); LYMPH % 10.3 % (8-40); MCH 29.4 pg (25.7-33.7); MCHC 33.2 g/dl (32.0-35.9); MEAN CELL VOLUME 88.4 fl (80-96); MEAN PLT VOLUME 8.8 fl (7.5-11.1); MONO % 7.1 % (3.8-10.2); NEUT % 81.9 % (42.8-82.8); PLATELET COUNT 208 K/MM3 (134-434); RBC 4.66 M/mm3 (4.00-5.60); WHITE BLOOD COUNT 4.3 K/mm3 (4.0-10.0)
--- NOTE | 2019-07-23 17:52 | PN ---
Physical Exam: SUBJECTIVE: Patient seen and examined 38 year old male with history of congenital quadriplegia, epilepsy, MR presents from [facility] due to worsening shortness of breath. Unable to obtain much info due to pt's condition at baseline. As per team and nursing, pt has been improving. IV access was lost during the last shift, surgical consult placed IV catheter and foot OBJECTIVE: Vital Signs Period Temp Pulse Resp BP Sys/Osullivan Pulse Ox Last 24 Hr 98.7 F-99.4 F 68-86 18-20 137-142/87-96 96-96 GENERAL: Awake, alert, in no acute distress. HEAD: AT/AC EYES: KARRIE, EOMI EARS, NOSE, THROAT: Oropharynx clear without exudates. Dry mucous membranes. NECK: Supple without lymphadenopathy, or JVD. LUNGS: Scattered wheezing, and rhonchi bilaterally. No accessory muscle use. HEART: Regular rate and rhythm, normal S1 and S2 without murmur, rub or gallop. ABDOMEN: Soft, nontender, not distended. Gtube in situ; site clean dry. BS normal, no guarding, no rebound. EXTREMITIES: Contracted. 2+ pulses, warm, well-perfused. No peripheral edema. SKIN: Warm, dry. Active Medications Current Medications Acetaminophen (Tylenol Oral Solution -) 650 mg GT Q4H PRN PRN Reason: FEVER Last Admin: 07/23/19 14:47 Dose: 650 mg Albuterol Sulfate (Ventolin 0.083% Nebulizer Soln -) 1 amp NEB Q6H PRN PRN Reason: SHORT OF BREATH/WHEEZING Last Admin: 07/21/19 11:31 Dose: 1 amp Albuterol/Ipratropium (Duoneb -) 1 amp NEB RQID [facility] Last Admin: 07/23/19 16:26 Dose: 1 amp Amlodipine Besylate (Norvasc -) 5 mg GT DAILY [facility] Last Admin: 07/23/19 11:07 Dose: 5 mg Budesonide (Pulmicort 0.5 Mg Nebulizer -) 1 amp NEB DAILY [facility] Last Admin: 07/23/19 09:05 Dose: 1 amp Calcium Carbonate (Calcium Carb Oral Suspension -) 500 mg GT BID [facility] Last Admin: 07/23/19 11:12 Dose: 500 mg Cholecalciferol (Vitamin D3 Oral Solution -) 1,000 unit GT DAILY [facility] Last Admin: 07/23/19 11:13 Dose: 2.5 ml Enoxaparin Sodium (Lovenox -) 40 mg SQ DAILY [facility] Last Admin: 07/23/19 11:07 Dose: 40 mg Famotidine (Pepcid) 20 mg PEG HS [facility] Last Admin: 07/22/19 22:38 Dose: 20 mg Ferrous Sulfate (Feosol) 300 mg GT HS [facility] Last Admin: 07/22/19 22:36 Dose: 300 mg Folic Acid (Folic Acid -) 1 mg GT HS [facility] Last Admin: 07/22/19 22:36 Dose: 1 mg Hydrochlorothiazide (Hctz -) 25 mg GT HS [facility] Last Admin: 07/22/19 22:36 Dose: 25 mg Sodium Chloride (Normal Saline -) 1,000 mls @ 83 mls/hr IV ASDIR [facility] Last Admin: 07/22/19 22:37 Dose: Not Given Piperacillin Sod/Tazobactam (Sod 3.375 gm/ Dextrose) 50 mls @ 100 mls/hr IVPB Q8H-IV [facility]; Protocol Last Admin: 07/23/19 17:36 Dose: 100 mls/hr Lamotrigine (Lamictal -) 100 mg GT TID [facility] Last Admin: 07/23/19 14:46 Dose: 100 mg Levetiracetam (Keppra Oral Solution -) 500 mg GT BID [facility] Last Admin: 07/23/19 11:10 Dose: 500 mg Magnesium Hydroxide (Milk Of Magnesia -) 15 ml GT BID [facility] Last Admin: 07/23/19 11:07 Dose: 15 ml Methylprednisolone Sodium Succinate (Solu-Medrol -) 40 mg IVPUSH Q8H-IV [facility] Stop: 07/25/19 02:01 Last Admin: 07/23/19 14:10 Dose: 40 mg Metoprolol Tartrate (Lopressor -) 75 mg GT BID [facility] Last Admin: 07/23/19 11:06 Dose: 75 mg Multivitamins/Minerals (Certavite-Antioxidant Liquid) 15 ml GT DAILY [facility] Last Admin: 07/23/19 11:10 Dose: 15 ml Oseltamivir Phosphate (Tamiflu Oral Suspension -) 75 mg PO BID [facility] Stop: 07/25/19 21:59 Last Admin: 07/23/19 11:20 Dose: 12.5 ml Polyethylene Glycol (Miralax (For Daily Use) -) 17 gm GT [facility] Last Admin: 07/22/19 22:35 Dose: 17 gm Senna (Senna Oral Solution -) 8.8 mg GT [facility] Last Admin: 07/22/19 22:37 Dose: 8.8 mg Home Medications Medication Instructions Recorded Albuterol 0.083% Nebulizer Michelle 1 neb NEB Q6H PRN 07/20/19 [Ventolin 0.083% Nebulizer Soln -] Amlodipine Besylate 5 mg GT DAILY 07/20/19 Bisacodyl [Dulcolax -] 10 mg PO ASDIR 07/20/19 Budesonide [Pulmicort 0.5 mg 1 neb NEB DAILY 07/20/19 Nebulizer -] Calcium Carbonate/Vitamin D3 1 each GT HS 07/20/19 [Oystercal-D 500 mg-400 Unit Tb] Calcium Carbonate/Vitamin D3 2 each GT DAILY 07/20/19 [Oystercal-D 500 mg-400 Unit Tb] Cholecalciferol (Vitamin D3) 1,000 unit GT DAILY 07/20/19 [Vitamin D3 -] Famotidine 20 mg GT 07/20/19 Ferrous Sulfate 220 mg GT 07/20/19 Fexofenadine HCl 60 mg PO BID 07/20/19 Folic Acid 1 mg GT 07/20/19 Hydrochlorothiazide 25 mg GT 07/20/19 Lamotrigine 100 mg GT TID 07/20/19 Magnesium Hydroxide [Milk of 15 ml GT BID 07/20/19 Magnesia] Methylcellulose [Citrucel] 1,000 mg GT 07/20/19 Metoprolol Tartrate 75 mg GT BID 07/20/19 Multivitamin [Multiple Vitamins] 1 each GT DAILY 07/20/19 Polyethylene Glycol 3350 [Glycolax] 119 gm GT 07/20/19 Sennosides [Senna] 2 tab PO HS 07/20/19 Levetiracetam 1,000 mg GT BID 07/21/19 ASSESSMENT/PLAN: 38 year old male with history of congenital quadriplegia, epilepsy, MR presents from [facility] due to worsening shortness of breath #Acute hypoxic resp distress 2/2 to influenza A vs PNA Pulmonary recom short course of medrol w/ inhaled bronchodilators appreciate pul consult. Will cont Zosyn Will cont Tamiflu #Quadriplegia chronic #Seizurre disorder cont Keppra 500 Lamictal 100 Diazepam PRN #HTN HCTZ 25, amlodipine 5, metoprolol 75 bid Imaging shows Cardiomegaly, will f/u ECHO #Illeus CT abdomen pelvis- Fecal impaction noted. On Miralax, senna, Fleet enema. #FEN IVF at 83 Jevity feeds at lowest trate and titrate up #DVT ppx Lovenox 40 #Dispo: will cont to monitor, cont abx, f/u labs Visit type - Emergency Visit Emergency Visit: Yes ED Registration Date: 07/20/19 Care time: The patient presented to the Emergency Department on the above date and was hospitalized for further evaluation of their emergent condition. - New Patient This patient is new to me today: Yes Date on this admission: 07/24/19 - Critical Care Critical Care patient: No - Discharge Referral Referred to [facility] No ATTENDING PHYSICIAN STATEMENT I saw and evaluated the patient. I reviewed the resident's note and discussed the case with the resident. I agree with the resident's findings and plan as documented. SUBJECTIVE: OBJECTIVE: ASSESSMENT AND PLAN:
[2019-07-23 18:07] LABS: ALBUMIN 3.3 g/dl (3.4-5.0); BILIRUBIN,TOTAL 0.4 mg/dL (0.2-1); BLOOD UREA NITROGEN 4.9 mg/dL (7-18); CALCIUM 8.7 mg/dL (8.5-10.1); CREATININE 0.5 mg/dL (0.55-1.3); POTASSIUM 3.8 mmol/L (3.5-5.1)
[2019-07-23] MEDS: FOLIC ACID 1 MG TABLET (FP) GT SCH (22:06)
[2019-07-23] MEDS: HYDROCHLOROTHIAZIDE 25 MG TABLET (FP) GT SCH (22:06)
[2019-07-23] MEDS: SENNOSIDES 8.8 MG/5 ML BULK BOTTLE GT SCH (22:07)
[2019-07-23] MEDS: FERROUS SO4 300 MG/5 ML ORAL SOLN UNIT DOSE CUPS GT SCH (22:08)
[2019-07-23] MEDS: SODIUM CHLORIDE 1,000 ML IV SCH (22:08)
[2019-07-23] MEDS: FAMOTIDINE 40 MG/5 ML ORAL SUSPENSION PEG SCH (22:08)
[2019-07-23] MEDS: POLYETHYLENE GLYCOL 3350 119 GM BTL GT SCH (22:09)
[2019-07-24] MEDS ORDERED: PIPERACILLIN/TAZOBACTAM 3.375 GM VIAL IVPB ONE ×3 (01:00→17:50)
[2019-07-24] MEDS ORDERED: DEXTROSE 5%-WATER - 50 ML IVPB ONE ×3 (01:00→17:51)
[2019-07-24] MEDS: PIPERACILLIN/TAZOB 3.375 GM 3.375 GM in DEXTROSE 5%-WATER - 50 ML IVPB SCH ×3 (01:13→17:57)
[2019-07-24] MEDS: methylPREDNISolone NA SUCC 40 MG/1 ML VIAL IVPUSH SCH ×4 (01:13→18:36)
[2019-07-24] MEDS: lamoTRIgine 100 MG TABLET GT SCH ×3 (05:32→22:37)
[2019-07-24 07:24] LABS: HEMATOCRIT 39.5 % (35.4-49); HEMOGLOBIN 13.3 GM/dL (11.7-16.9); MCH 29.5 pg (25.7-33.7); MCHC 33.7 g/dl (32.0-35.9); MEAN CELL VOLUME 87.6 fl (80-96); MEAN PLT VOLUME 8.6 fl (7.5-11.1); PLATELET COUNT 228 K/MM3 (134-434); RBC 4.51 M/mm3 (4.00-5.60); WHITE BLOOD COUNT 3.4 K/mm3 (4.0-10.0)
[2019-07-24 07:53] LABS: ALBUMIN 3.2 g/dl (3.4-5.0); BILIRUBIN,TOTAL 0.4 mg/dL (0.2-1); CALCIUM 8.7 mg/dL (8.5-10.1); CREATININE 0.6 mg/dL (0.55-1.3); POTASSIUM 3.8 mmol/L (3.5-5.1); TOT PROT 7.2 g/dl (6.4-8.2)
[2019-07-24] MEDS: ALBUTEROL SO4 2.5/IPRATROPIUM 0.5 INH SOL 3 ML VIAL.NEB. NEB SCH ×4 (08:30→16:00)
[2019-07-24] MEDS ORDERED: PT OWN MED DRAWER 7, Y5N ONE ×4 (09:10→22:41)
[2019-07-24] MEDS: METOPROLOL TARTRATE 50 MG TABLET (FP) GT SCH ×2 (09:51→22:42)
[2019-07-24] MEDS: ENOXAPARIN NA (PORCINE) 40 MG/0.4 ML DISP.SYRIN SQ SCH (09:51)
[2019-07-24] MEDS: MAGNESIUM HYDROX 2400MG/30ML ORAL SUSPENSION 30 ML CUP GT SCH ×2 (09:52→22:41)
[2019-07-24] MEDS: CALCIUM CARBONATE SUSPENSION - 500 MG/5 ML ML GT SCH ×2 (09:53→22:35)
[2019-07-24] MEDS: CHOLECALCIFEROL (VIT D SOLUTION) 400 UNIT/1 ML DROPS GT SCH (09:54)
[2019-07-24] MEDS: OSELTAMIVIR PHOSPHATE 6 MG/1 ML PO SCH ×2 (09:55→22:38)
[2019-07-24] MEDS: amLODIPine BESYLATE 5 MG TABLET (FP) GT SCH (09:56)
[2019-07-24] MEDS: MULTIVIT-MINERALS ORAL LIQUID GT SCH (09:56)
[2019-07-24] MEDS: levETIRAcetam 500 MG/5 ML ORAL SOLUTION (UNIT-DOSE CUPS) GT SCH ×2 (09:56→22:37)
--- NOTE | 2019-07-24 13:05 | PN ---
Progress Note (short form) - Note Progress Note: PULMONARY Pt nonverbal. No fevers recorded. Vital Signs Period Temp Pulse Resp BP Sys/Osullivan Pulse Ox Last 24 Hr 97.8 F-99.4 F 51-76 18-18 127-152/82-102 95-97 Gen: less tachypneic Heart: RRR Lung: bilateral rhonchi Abd: soft, nontender Ext: no edema CBC, BMP 07/24/19 05:48 07/24/19 05:48 Active Medications Acetaminophen (Tylenol Oral Solution -) 650 mg GT Q4H PRN PRN Reason: FEVER Last Admin: 07/23/19 14:47 Dose: 650 mg Albuterol Sulfate (Ventolin 0.083% Nebulizer Soln -) 1 amp NEB Q6H PRN PRN Reason: SHORT OF BREATH/WHEEZING Last Admin: 07/21/19 11:31 Dose: 1 amp Albuterol/Ipratropium (Duoneb -) 1 amp NEB RQID [facility] Last Admin: 07/24/19 09:20 Dose: 1 amp Amlodipine Besylate (Norvasc -) 5 mg GT DAILY [facility] Last Admin: 07/24/19 09:56 Dose: 5 mg Budesonide (Pulmicort 0.5 Mg Nebulizer -) 1 amp NEB DAILY [facility] Last Admin: 07/23/19 09:05 Dose: 1 amp Calcium Carbonate (Calcium Carb Oral Suspension -) 500 mg GT BID [facility] Last Admin: 07/24/19 09:53 Dose: 500 mg Cholecalciferol (Vitamin D3 Oral Solution -) 1,000 unit GT DAILY [facility] Last Admin: 07/24/19 09:54 Dose: 1,000 ml Enoxaparin Sodium (Lovenox -) 40 mg SQ DAILY [facility] Last Admin: 07/24/19 09:51 Dose: 40 mg Famotidine (Pepcid) 20 mg PEG HS [facility] Last Admin: 07/23/19 22:08 Dose: 20 mg Ferrous Sulfate (Feosol) 300 mg GT HS [facility] Last Admin: 07/23/19 22:08 Dose: 300 mg Folic Acid (Folic Acid -) 1 mg GT HS [facility] Last Admin: 07/23/19 22:06 Dose: 1 mg Hydrochlorothiazide (Hctz -) 25 mg GT HS [facility] Last Admin: 07/23/19 22:06 Dose: 25 mg Sodium Chloride (Normal Saline -) 1,000 mls @ 83 mls/hr IV ASDIR [facility] Last Admin: 07/23/19 22:08 Dose: Not Given Piperacillin Sod/Tazobactam (Sod 3.375 gm/ Dextrose) 50 mls @ 100 mls/hr IVPB Q8H-IV [facility]; Protocol Last Admin: 07/24/19 09:48 Dose: 100 mls/hr Lamotrigine (Lamictal -) 100 mg GT TID [facility] Last Admin: 07/24/19 05:32 Dose: 100 mg Levetiracetam (Keppra Oral Solution -) 500 mg GT BID [facility] Last Admin: 07/24/19 09:56 Dose: 500 mg Magnesium Hydroxide (Milk Of Magnesia -) 15 ml GT BID [facility] Last Admin: 07/24/19 09:52 Dose: 15 ml Methylprednisolone Sodium Succinate (Solu-Medrol -) 40 mg IVPUSH Q8H-IV [facility] Stop: 07/25/19 02:01 Last Admin: 07/24/19 09:52 Dose: 40 mg Metoprolol Tartrate (Lopressor -) 75 mg GT BID [facility] Last Admin: 07/24/19 09:51 Dose: 75 mg Multivitamins/Minerals (Certavite-Antioxidant Liquid) 15 ml GT DAILY [facility] Last Admin: 07/24/19 09:56 Dose: 15 ml Oseltamivir Phosphate (Tamiflu Oral Suspension -) 75 mg PO BID [facility] Stop: 07/25/19 21:59 Last Admin: 07/24/19 09:55 Dose: 75 ml Polyethylene Glycol (Miralax (For Daily Use) -) 17 gm GT HS [facility] Last Admin: 07/23/19 22:09 Dose: 17 gm Senna (Senna Oral Solution -) 8.8 mg GT HS [facility] Last Admin: 07/23/19 22:07 Dose: 8.8 mg A/P Influenza A Pneumonia Sepsis Acute Bronchospasm Cerebral Palsy Mental Retardation Functional Quadriplegia Seizure Disorder HTN - antibiotics per ID - tamiflu - inhaled bronchodilators - continue medrol - O2 to keep Spo2 >90% - aspiration precautions - DVT prophylaxis Problem List - Problems (1) Influenza A Code(s): J10.1 - FLU DUE TO OTH IDENT INFLUENZA VIRUS W OTH RESP MANIFEST (2) Pneumonia Code(s): J18.9 - PNEUMONIA, UNSPECIFIED ORGANISM
[2019-07-24] MEDS: BUDESONIDE 0.5 MG/2 ML INH SUSP VIAL NEB SCH (13:12)
--- NOTE | 2019-07-24 13:52 | ECHO ---
Version: 1 Name: MADDI BRISCOE Exam: Adult Echocardiogram Study Date: 07/24/2019, 8:15 AM Age: 38 Years MMode/2D Measurements & Calculations IVSd: 0.98 cm LVIDs: 2.5 cm LVIDd: 4.0 cm LVPWd: 0.94 cm LAV (MOD-bp): 27.2 ml LVOT diam: 2.01 cm Ao root diam: 2.8 cm LA dimension: 3.1 cm Doppler Measurements & Calculations MV E max cali: 110.0 cm/sec Med E/e': 13.3 MV A max cali: 82.9 cm/sec Med Peak E' Cali: 8.3 cm/sec MV E/A: 1.33 Lat E/e': 13.3 Lat Peak E' Cali: 8.3 cm/sec Ao max P.8 mmHg Ao V2 max: 139.8 cm/sec TR max cali: 193.4 cm/sec TR max P.0 mmHg Left Ventricle The left ventricular size, thickness and function are normal. EF 67%. Right Ventricle The right ventricle is grossly normal size. The right ventricular systolic function is normal. Atria Normal left and right atrial size and function. Mitral Valve The mitral valve is grossly normal. Tricuspid Valve The tricuspid valve is not well visualized, but is grossly normal. There is mild tricuspid regurgita tion. PAPS 14 mmHg. Aortic Valve The aortic valve is normal in structure and function. Pulmonic Valve The pulmonic valve is normal in structure and function. Great Vessels The aortic root is normal size. Pericardium/Pleura There is no pericardial effusion. Summary Statements The left ventricular size, thickness and function are normal EF 67% The right ventricle is grossly normal size. The right ventricular systolic function is normal. Normal left and right atrial size and function. The mitral valve is grossly normal. The tricuspid valve is not well visualized, but is grossly normal. There is mild tricuspid regurgitation. The aortic valve is normal in structure and function. The pulmonic valve is normal in structure and function. The aortic root is normal size. There is no pericardial effusion. PAPS 14 mmHg MD Ramiro Gotti 07/24/2019, 1:51 PM Ordering Physician: FLORENCE NAVARRETE Performed By: Gayle Good
--- NOTE | 2019-07-24 14:14 | PN ---
Physical Exam: SUBJECTIVE: Patient seen and examined Pt is at baseline mentation. Appeared to be desaturating to high 80s on 4 L NC but then came back up to low 90s. Pt had a large bowel movement. Otherwise no issues or events. Denies f/c, n,v,d,sob, chest pain. OBJECTIVE: Vital Signs Period Temp Pulse Resp BP Sys/Osullivan Pulse Ox Last 24 Hr 97.8 F-99.4 F 51-76 18-18 127-152/82-102 95-97 GENERAL: Awake, alert, in no acute distress. HEAD: AT/AC EYES: KARRIE, EOMI EARS, NOSE, THROAT: Oropharynx clear without exudates. Dry mucous membranes. NECK: Supple without lymphadenopathy, or JVD. LUNGS: Scattered wheezing, and rhonchi bilaterally. No accessory muscle use. HEART: Regular rate and rhythm, normal S1 and S2 without murmur, rub or gallop. ABDOMEN: Soft, nontender, not distended. Gtube in situ; site clean dry. BS normal, no guarding, no rebound. EXTREMITIES: Contracted. 2+ pulses, warm, well-perfused. No peripheral edema. SKIN: Warm, dry. Laboratory Results - last 24 hr CBC,CMP WBC 3.4 K/mm3 (4.0-10.0) L 07/24/19 05:48 RBC 4.51 M/mm3 (4.00-5.60) 07/24/19 05:48 Hgb 13.3 GM/dL (11.7-16.9) 07/24/19 05:48 Hct 39.5 % (35.4-49) 07/24/19 05:48 MCV 87.6 fl (80-96) 07/24/19 05:48 MCH 29.5 pg (25.7-33.7) 07/24/19 05:48 MCHC 33.7 g/dl (32.0-35.9) 07/24/19 05:48 RDW 14.0 % (11.9-15.9) 07/24/19 05:48 Plt Count 228 K/MM3 (134-434) 07/24/19 05:48 MPV 8.6 fl (7.5-11.1) 07/24/19 05:48 Absolute Neuts (auto) 3.5 K/mm3 (1.5-8.0) 07/23/19 16:15 Neutrophils % 81.9 % (42.8-82.8) 07/23/19 16:15 Lymphocytes % 10.3 % (8-40) D 07/23/19 16:15 Monocytes % 7.1 % (3.8-10.2) 07/23/19 16:15 Eosinophils % 0.5 % (0-4.5) D 07/23/19 16:15 Basophils % 0.2 % (0-2.0) 07/23/19 16:15 Nucleated RBC % 0 % (0-0) 07/23/19 16:15 Sodium 138 mmol/L (136-145) 07/24/19 05:48 Potassium 3.8 mmol/L (3.5-5.1) 07/24/19 05:48 Chloride 103 mmol/L (98-107) 07/24/19 05:48 Carbon Dioxide 30 mmol/L (21-32) 07/24/19 05:48 Anion Gap 6 MMOL/L (8-16) L 07/24/19 05:48 BUN 4.0 mg/dL (7-18) L 07/24/19 05:48 Creatinine 0.6 mg/dL (0.55-1.3) 07/24/19 05:48 Est GFR (CKD-EPI)AfAm 146.79 07/24/19 05:48 Est GFR (CKD-EPI)NonAf 126.65 07/24/19 05:48 POC Glucometer 90 UNITS (80-120) 07/21/19 11:08 Random Glucose 114 mg/dL (74-106) H 07/24/19 05:48 Lactic Acid 1.9 mmol/L (0.4-2.0) 07/20/19 20:18 Calcium 8.7 mg/dL (8.5-10.1) 07/24/19 05:48 Phosphorus 2.2 mg/dL (2.5-4.9) L 07/21/19 05:15 Magnesium 1.9 mg/dL (1.8-2.4) 07/21/19 05:15 Total Bilirubin 0.4 mg/dL (0.2-1) 07/24/19 05:48 AST 19 U/L (15-37) 07/24/19 05:48 ALT 45 U/L (13-61) 07/24/19 05:48 Alkaline Phosphatase 103 U/L (45-117) 07/24/19 05:48 Troponin I < 0.02 ng/ml (0.00-0.05) 07/20/19 16:00 Total Protein 7.2 g/dl (6.4-8.2) 07/24/19 05:48 Albumin 3.2 g/dl (3.4-5.0) L 07/24/19 05:48 Active Medications Current Medications Acetaminophen (Tylenol Oral Solution -) 650 mg GT Q4H PRN PRN Reason: FEVER Last Admin: 07/23/19 14:47 Dose: 650 mg Albuterol Sulfate (Ventolin 0.083% Nebulizer Soln -) 1 amp NEB Q6H PRN PRN Reason: SHORT OF BREATH/WHEEZING Last Admin: 07/21/19 11:31 Dose: 1 amp Albuterol/Ipratropium (Duoneb -) 1 amp NEB RQID [facility] Last Admin: 07/24/19 13:13 Dose: 1 amp Amlodipine Besylate (Norvasc -) 5 mg GT DAILY [facility] Last Admin: 07/24/19 09:56 Dose: 5 mg Budesonide (Pulmicort 0.5 Mg Nebulizer -) 1 amp NEB DAILY [facility] Last Admin: 07/24/19 13:12 Dose: 1 amp Calcium Carbonate (Calcium Carb Oral Suspension -) 500 mg GT BID [facility] Last Admin: 07/24/19 09:53 Dose: 500 mg Cholecalciferol (Vitamin D3 Oral Solution -) 1,000 unit GT DAILY [facility] Last Admin: 07/24/19 09:54 Dose: 1,000 ml Enoxaparin Sodium (Lovenox -) 40 mg SQ DAILY [facility] Last Admin: 07/24/19 09:51 Dose: 40 mg Famotidine (Pepcid) 20 mg PEG HS [facility] Last Admin: 07/23/19 22:08 Dose: 20 mg Ferrous Sulfate (Feosol) 300 mg GT HS [facility] Last Admin: 07/23/19 22:08 Dose: 300 mg Folic Acid (Folic Acid -) 1 mg GT HS [facility] Last Admin: 07/23/19 22:06 Dose: 1 mg Hydrochlorothiazide (Hctz -) 25 mg GT HS [facility] Last Admin: 07/23/19 22:06 Dose: 25 mg Sodium Chloride (Normal Saline -) 1,000 mls @ 83 mls/hr IV ASDIR [facility] Last Admin: 07/23/19 22:08 Dose: Not Given Piperacillin Sod/Tazobactam (Sod 3.375 gm/ Dextrose) 50 mls @ 100 mls/hr IVPB Q8H-IV [facility]; Protocol Last Admin: 07/24/19 09:48 Dose: 100 mls/hr Lamotrigine (Lamictal -) 100 mg GT TID [facility] Last Admin: 07/24/19 13:58 Dose: 100 mg Levetiracetam (Keppra Oral Solution -) 500 mg GT BID [facility] Last Admin: 07/24/19 09:56 Dose: 500 mg Magnesium Hydroxide (Milk Of Magnesia -) 15 ml GT BID [facility] Last Admin: 07/24/19 09:52 Dose: 15 ml Methylprednisolone Sodium Succinate (Solu-Medrol -) 40 mg IVPUSH Q8H-IV [facility] Stop: 07/25/19 02:01 Last Admin: 07/24/19 09:52 Dose: 40 mg Metoprolol Tartrate (Lopressor -) 75 mg GT BID [facility] Last Admin: 07/24/19 09:51 Dose: 75 mg Multivitamins/Minerals (Certavite-Antioxidant Liquid) 15 ml GT DAILY [facility] Last Admin: 07/24/19 09:56 Dose: 15 ml Oseltamivir Phosphate (Tamiflu Oral Suspension -) 75 mg PO BID [facility] Stop: 07/25/19 21:59 Last Admin: 07/24/19 09:55 Dose: 75 ml Polyethylene Glycol (Miralax (For Daily Use) -) 17 gm GT HS [facility] Last Admin: 07/23/19 22:09 Dose: 17 gm Senna (Senna Oral Solution -) 8.8 mg GT HS [facility] Last Admin: 07/23/19 22:07 Dose: 8.8 mg Home Medications Medication Instructions Recorded Albuterol 0.083% Nebulizer Michelle 1 neb NEB Q6H PRN 07/20/19 [Ventolin 0.083% Nebulizer Soln -] Amlodipine Besylate 5 mg GT DAILY 07/20/19 Bisacodyl [Dulcolax -] 10 mg PO ASDIR 07/20/19 Budesonide [Pulmicort 0.5 mg 1 neb NEB DAILY 07/20/19 Nebulizer -] Calcium Carbonate/Vitamin D3 1 each GT HS 07/20/19 [Oystercal-D 500 mg-400 Unit Tb] Calcium Carbonate/Vitamin D3 2 each GT DAILY 07/20/19 [Oystercal-D 500 mg-400 Unit Tb] Cholecalciferol (Vitamin D3) 1,000 unit GT DAILY 07/20/19 [Vitamin D3 -] Famotidine 20 mg GT HS 07/20/19 Ferrous Sulfate 220 mg GT HS 07/20/19 Fexofenadine HCl 60 mg PO BID 07/20/19 Folic Acid 1 mg GT HS 07/20/19 Hydrochlorothiazide 25 mg GT HS 07/20/19 Lamotrigine 100 mg GT TID 07/20/19 Magnesium Hydroxide [Milk of 15 ml GT BID 07/20/19 Magnesia] Methylcellulose [Citrucel] 1,000 mg GT HS 07/20/19 Metoprolol Tartrate 75 mg GT BID 07/20/19 Multivitamin [Multiple Vitamins] 1 each GT DAILY 07/20/19 Polyethylene Glycol 3350 [Glycolax] 119 gm GT HS 07/20/19 Sennosides [Senna] 2 tab PO HS 07/20/19 Levetiracetam 1,000 mg GT BID 07/21/19 ASSESSMENT/PLAN: 38 y/o M with history of congenital quadriplegia, epilepsy, MR presents from [facility] due to worsening shortness of breath #Acute hypoxic resp distress 2/2 to influenza A vs PNA Cont medrol w/ inhaled bronchodilators- dounebs Can switch to PO prednisone anurag Will cont Zosyn Will cont Tamiflu Will cont to wean off of O2 #Quadriplegia chronic #Seizurre disorder cont Keppra 500 Lamictal 100 Diazepam PRN #HTN HCTZ 25, amlodipine 5, metoprolol 75 bid Imaging shows Cardiomegaly ECHO: EF 67%, mild TR, normal findings #Illeus CT abdomen pelvis- Fecal impaction noted. On Miralax, senna, Fleet enema Pt had a large bowel movement #FEN IVF at 83 Jevity feeds at lowest trate and titrate up #DVT ppx Lovenox 40 #Dispo: will cont to monitor, cont abx, f/u labs, wean off O2 Visit type - Emergency Visit Emergency Visit: Yes ED Registration Date: 07/20/19 Care time: The patient presented to the Emergency Department on the above date and was hospitalized for further evaluation of their emergent condition. - New Patient This patient is new to me today: Yes Date on this admission: 07/25/19 - Critical Care Critical Care patient: No - Discharge Referral Referred to [facility] No ATTENDING PHYSICIAN STATEMENT I saw and evaluated the patient. I reviewed the resident's note and discussed the case with the resident. I agree with the resident's findings and plan as documented. SUBJECTIVE: OBJECTIVE: ASSESSMENT AND PLAN:
--- NOTE | 2019-07-24 15:33 | PN ---
Teaching Attending Note Name of Resident: Jeff Ramires ATTENDING PHYSICIAN STATEMENT I saw and evaluated the patient. I reviewed the resident's note and discussed the case with the resident. I agree with the resident's findings and plan as documented. SUBJECTIVE: Non-verbal. OBJECTIVE: Appears comfortable. [place], Hemodynamically Stable. Last Vital Signs Temp Pulse Resp BP Pulse Ox 98.9 F 59 L 16 132/79 95 07/24/19 14:20 07/24/19 14:20 07/24/19 14:20 07/24/19 14:20 07/24/19 10:00 General - Non-verbal. Contractures + Heart - S1, S2, RRR lungs - bibasal crackles. Abdomen - Soft, non-tender. PEG in situ. Bowel Sounds normal Extremities - wasting, contractures, no edema. Laboratory Results - last 24 hr 07/23/19 07/23/19 07/24/19 11:39 16:15 05:48 WBC 4.3 3.4 L RBC 4.66 4.51 Hgb 13.7 13.3 Hct 41.2 39.5 MCV 88.4 87.6 MCH 29.4 29.5 MCHC 33.2 33.7 RDW 14.0 14.0 Plt Count 208 228 MPV 8.8 8.6 Absolute Neuts (auto) 3.5 Neutrophils % 81.9 Lymphocytes % 10.3 D Monocytes % 7.1 Eosinophils % 0.5 D Basophils % 0.2 Nucleated RBC % 0 Sodium 137 Potassium 3.8 Chloride 103 Carbon Dioxide 29 Anion Gap 5 L BUN 4.9 L Creatinine 0.5 L Est GFR (CKD-EPI)AfAm 158.21 Est GFR (CKD-EPI)NonAf 136.51 Random Glucose 123 H Calcium 8.7 Total Bilirubin 0.4 AST 21 ALT 49 Alkaline Phosphatase 106 Total Protein 7.0 Albumin 3.3 L 07/24/19 05:48 WBC RBC Hgb Hct MCV MCH MCHC RDW Plt Count MPV Absolute Neuts (auto) Neutrophils % Lymphocytes % Monocytes % Eosinophils % Basophils % Nucleated RBC % Sodium 138 Potassium 3.8 Chloride 103 Carbon Dioxide 30 Anion Gap 6 L BUN 4.0 L Creatinine 0.6 Est GFR (CKD-EPI)AfAm 146.79 Est GFR (CKD-EPI)NonAf 126.65 Random Glucose 114 H Calcium 8.7 Total Bilirubin 0.4 AST 19 ALT 45 Alkaline Phosphatase 103 Total Protein 7.2 Albumin 3.2 L Current Medications Generic Name Dose Route Start Last Admin Trade Name Freq PRN Reason Stop Dose Admin Acetaminophen 650 mg 07/21/19 16:02 07/23/19 14:47 Tylenol Oral Solution - GT 650 mg Q4H PRN Administration FEVER Albuterol Sulfate 1 amp 07/20/19 22:12 07/21/19 11:31 Ventolin 0.083% Nebulizer Soln - NEB 1 amp Q6H PRN Administration SHORT OF BREATH/WHEEZING Albuterol/Ipratropium 1 amp 07/23/19 16:00 07/24/19 13:13 Duoneb - NEB 1 amp RQID [facility] Administration Amlodipine Besylate 5 mg 07/22/19 10:00 07/24/19 09:56 Norvasc - GT 5 mg DAILY [facility] Administration Budesonide 1 amp 07/21/19 10:00 07/24/19 13:12 Pulmicort 0.5 Mg Nebulizer - NEB 1 amp DAILY [facility] Administration Calcium Carbonate 500 mg 07/21/19 22:00 07/24/19 09:53 Calcium Carb Oral Suspension - GT 500 mg BID [facility] Administration Cholecalciferol 1,000 unit 07/22/19 10:00 07/24/19 09:54 Vitamin D3 Oral Solution - GT 1,000 ml DAILY [facility] Administration Enoxaparin Sodium 40 mg 07/21/19 10:00 07/24/19 09:51 Lovenox - SQ 40 mg DAILY [facility] Administration Famotidine 20 mg 07/21/19 22:00 07/23/19 22:08 Pepcid PEG 20 mg HS [facility] Administration Ferrous Sulfate 300 mg 07/21/19 22:00 07/23/19 22:08 Feosol GT 300 mg HS [facility] Administration Folic Acid 1 mg 07/21/19 22:00 07/23/19 22:06 Folic Acid - GT 1 mg HS [facility] Administration Hydrochlorothiazide 25 mg 07/21/19 22:00 07/23/19 22:06 Hctz - GT 25 mg HS [facility] Administration Sodium Chloride 1,000 mls @ 83 mls/hr 07/20/19 22:00 07/23/19 22:08 Normal Saline - IV Not Given ASDIR [facility] Piperacillin Sod/Tazobactam 50 mls @ 100 mls/hr 07/21/19 18:00 07/24/19 09:48 Sod 3.375 gm/ Dextrose IVPB 100 mls/hr Q8H-IV [facility] Administration Protocol Lamotrigine 100 mg 07/21/19 06:00 07/24/19 13:58 Lamictal - GT 100 mg TID [facility] Administration Levetiracetam 500 mg 07/21/19 22:00 07/24/19 09:56 Keppra Oral Solution - GT 500 mg BID [facility] Administration Magnesium Hydroxide 15 ml 07/21/19 22:00 07/24/19 09:52 Milk Of Magnesia - GT 15 ml BID [facility] Administration Methylprednisolone Sodium Succinate 40 mg 07/23/19 12:45 07/24/19 09:52 Solu-Medrol - IVPUSH 07/25/19 02:01 40 mg Q8H-IV [facility] Administration Metoprolol Tartrate 75 mg 07/21/19 22:00 07/24/19 09:51 Lopressor - GT 75 mg BID [facility] Administration Multivitamins/Minerals 15 ml 07/22/19 10:00 07/24/19 09:56 Certavite-Antioxidant Liquid GT 15 ml DAILY [facility] Administration Oseltamivir Phosphate 75 mg 07/20/19 22:00 07/24/19 09:55 Tamiflu Oral Suspension - PO 07/25/19 21:59 75 ml BID [facility] Administration Polyethylene Glycol 17 gm 07/21/19 22:00 07/23/19 22:09 Miralax (For Daily Use) - GT 17 gm HS [facility] Administration Senna 8.8 mg 07/21/19 22:00 07/23/19 22:07 Senna Oral Solution - GT 8.8 mg HS [facility] Administration Home Medications Medication Instructions Recorded Albuterol 0.083% Nebulizer Michelle 1 neb NEB Q6H PRN 07/20/19 [Ventolin 0.083% Nebulizer Soln -] Amlodipine Besylate 5 mg GT DAILY 07/20/19 Bisacodyl [Dulcolax -] 10 mg PO ASDIR 07/20/19 Budesonide [Pulmicort 0.5 mg 1 neb NEB DAILY 07/20/19 Nebulizer -] Calcium Carbonate/Vitamin D3 1 each GT HS 07/20/19 [Oystercal-D 500 mg-400 Unit Tb] Calcium Carbonate/Vitamin D3 2 each GT DAILY 07/20/19 [Oystercal-D 500 mg-400 Unit Tb] Cholecalciferol (Vitamin D3) 1,000 unit GT DAILY 07/20/19 [Vitamin D3 -] Famotidine 20 mg GT HS 07/20/19 Ferrous Sulfate 220 mg GT HS 07/20/19 Fexofenadine HCl 60 mg PO BID 07/20/19 Folic Acid 1 mg GT HS 07/20/19 Hydrochlorothiazide 25 mg GT HS 07/20/19 Lamotrigine 100 mg GT TID 07/20/19 Magnesium Hydroxide [Milk of 15 ml GT BID 07/20/19 Magnesia] Methylcellulose [Citrucel] 1,000 mg GT HS 07/20/19 Metoprolol Tartrate 75 mg GT BID 07/20/19 Multivitamin [Multiple Vitamins] 1 each GT DAILY 07/20/19 Polyethylene Glycol 3350 [Glycolax] 119 gm GT HS 07/20/19 Sennosides [Senna] 2 tab PO HS 07/20/19 Levetiracetam 1,000 mg GT BID 07/21/19 ASSESSMENT AND PLAN: 38 year old male with history of developmental delay, cognitive deficit, functional quadriplegia, epilepsy, Asthma (on Budesonide INH), presents from [facility] with worsening shortness of breath, found to have Flu positive pneumonia 1. Acute hypoxic Respiratory Failure secondary to Flu/Pneumonia with Acute Asthma Exacerbation Still requiring supplemental O2. Continue Zosyn, Tamiflu and Bronchodilator Nebs. IV Medrol as per Pulmonary. 2. Seizure Disorder - Continue Lamictal, Keppra. 3. HTN - Continue Norvasc, Metoprolol, HCTZ. 4. Fecal Impaction, noted on CT - resolved s/p large BM this AM. Continue Senna, Miralax, MOM, Enema PRN. DVT Px - Lovenox SQ.
[2019-07-24 17:08] VITALS: BMI 23.3
--- NOTE | 2019-07-24 17:52 | PN ---
Progress Note (short form) - Note Progress Note: resting comfortably NAD Vital Signs Period Temp Pulse Resp BP Sys/Osullivan Pulse Ox Last 24 Hr 97.8 F-98.9 F 51-76 16-18 127-152/79-102 95-97 cor-rrr lungs decreased bs at bases abd soft,nt. no distension ext no edema CBC, BMP 07/24/19 05:48 07/24/19 05:[address]- pneumonia-bilateral lower lobe infiltrates abd/pelvis ct- fecal impaction Microbiology 07/20/19 16:00 Urine - Urine - Catheterized Urine Culture - Final NO GROWTH OBTAINED 07/20/19 16:00 Blood - Peripheral Venous Blood Culture - Preliminary NO GROWTH OBTAINED AFTER 24 HOURS, INCUBATION TO CONTINUE FOR 4 DAYS. 07/20/19 16:00 Blood - Peripheral Venous Blood Culture - Preliminary NO GROWTH OBTAINED AFTER 24 HOURS, INCUBATION TO CONTINUE FOR 4 DAYS. a/p influenza A r/o pneumonia seizure disorder fecal impaction tamiflu/zosyn to continue day #4 consider switch to augmentin in am to complete 7 days complete 5 days tamiflu
[2019-07-24] MEDS: FERROUS SO4 300 MG/5 ML ORAL SOLN UNIT DOSE CUPS GT SCH (22:36)
[2019-07-24] MEDS: POLYETHYLENE GLYCOL 3350 119 GM BTL GT SCH (22:37)
[2019-07-24] MEDS: FAMOTIDINE 40 MG/5 ML ORAL SUSPENSION PEG SCH (22:38)
[2019-07-24] MEDS: SENNOSIDES 8.8 MG/5 ML BULK BOTTLE GT SCH (22:38)
[2019-07-24] MEDS: HYDROCHLOROTHIAZIDE 25 MG TABLET (FP) GT SCH (22:42)
[2019-07-24] MEDS: FOLIC ACID 1 MG TABLET (FP) GT SCH (22:42)
[2019-07-25] MEDS ORDERED: PIPERACILLIN/TAZOBACTAM 3.375 GM VIAL IVPB ONE (01:36)
[2019-07-25] MEDS ORDERED: DEXTROSE 5%-WATER - 50 ML IVPB ONE (01:37)
[2019-07-25] MEDS: PIPERACILLIN/TAZOB 3.375 GM 3.375 GM in DEXTROSE 5%-WATER - 50 ML IVPB SCH (02:22)
[2019-07-25] MEDS: methylPREDNISolone NA SUCC 40 MG/1 ML VIAL IVPUSH SCH (02:22)
[2019-07-25] MEDS ORDERED: PT OWN MED DRAWER 7, Y5N ONE ×3 (05:43→10:49)
[2019-07-25] MEDS: lamoTRIgine 100 MG TABLET GT SCH ×3 (06:23→22:56)
[2019-07-25] MEDS ORDERED: AMOX TR/POT CLAV 500MG/125MG TABLETS (FP) PO SCH (07:00)
[2019-07-25] MEDS: ALBUTEROL SO4 2.5/IPRATROPIUM 0.5 INH SOL 3 ML VIAL.NEB. NEB SCH ×4 (08:17→21:12)
[2019-07-25] MEDS: MAGNESIUM HYDROX 2400MG/30ML ORAL SUSPENSION 30 ML CUP GT SCH ×2 (10:42→22:48)
[2019-07-25] MEDS: ENOXAPARIN NA (PORCINE) 40 MG/0.4 ML DISP.SYRIN SQ SCH (10:42)
[2019-07-25] MEDS: ACETAMINOPHEN 650 MG/20.3 ML ORAL SOLUTION (CUPS) GT PRN (10:42)
[2019-07-25] MEDS: METOPROLOL TARTRATE 50 MG TABLET (FP) GT SCH ×2 (10:43→22:54)
[2019-07-25] MEDS: AMOX TR/POT CLAV 500MG/125MG TABLETS (FP) PO SCH ×3 (10:44→22:54)
[2019-07-25] MEDS: levETIRAcetam 500 MG/5 ML ORAL SOLUTION (UNIT-DOSE CUPS) GT SCH ×2 (10:44→22:52)
[2019-07-25] MEDS: CALCIUM CARBONATE SUSPENSION - 500 MG/5 ML ML GT SCH ×2 (11:01→22:52)
[2019-07-25] MEDS: CHOLECALCIFEROL (VIT D SOLUTION) 400 UNIT/1 ML DROPS GT SCH (11:02)
[2019-07-25] MEDS: amLODIPine BESYLATE 5 MG TABLET (FP) GT SCH (11:02)
[2019-07-25] MEDS: MULTIVIT-MINERALS ORAL LIQUID GT SCH (11:02)
[2019-07-25] MEDS ORDERED: ALBUTEROL SO4 2.5/IPRATROPIUM 0.5 INH SOL 3 ML VIAL.NEB. NEB ONE (12:23)
--- NOTE | 2019-07-25 13:12 | PN ---
Progress Note (short form) - Note Progress Note: PULMONARY Pt nonverbal. No fevers recorded. Vital Signs Period Temp Pulse Resp BP Sys/Osullivan Pulse Ox Last 24 Hr 97.7 F-98.9 F 55-71 16-19 132-154/78-96 96-98 Gen: less tachypneic Heart: RRR Lung: scattered rhonchi Abd: soft, nontender Ext: no edema CBC, BMP 07/24/19 05:48 07/24/19 05:48 Active Medications Acetaminophen (Tylenol Oral Solution -) 650 mg GT Q4H PRN PRN Reason: FEVER Last Admin: 07/25/19 10:42 Dose: 650 mg Albuterol Sulfate (Ventolin 0.083% Nebulizer Soln -) 1 amp NEB Q6H PRN PRN Reason: SHORT OF BREATH/WHEEZING Last Admin: 07/21/19 11:31 Dose: 1 amp Albuterol/Ipratropium (Duoneb -) 1 amp NEB RQID [facility] Last Admin: 07/25/19 12:57 Dose: 1 amp Amlodipine Besylate (Norvasc -) 5 mg GT DAILY [facility] Last Admin: 07/25/19 11:02 Dose: 5 mg Amoxicillin/Clavulanate Potassium (Augmentin - 500mg Tablet) 1 tab PO TID [facility] Last Admin: 07/25/19 10:44 Dose: 1 tab Budesonide (Pulmicort 0.5 Mg Nebulizer -) 1 amp NEB DAILY [facility] Last Admin: 07/24/19 13:12 Dose: 1 amp Calcium Carbonate (Calcium Carb Oral Suspension -) 500 mg GT BID [facility] Last Admin: 07/25/19 11:01 Dose: 500 mg Cholecalciferol (Vitamin D3 Oral Solution -) 1,000 unit GT DAILY [facility] Last Admin: 07/25/19 11:02 Dose: 1,000 ml Enoxaparin Sodium (Lovenox -) 40 mg SQ DAILY [facility] Last Admin: 07/25/19 10:42 Dose: 40 mg Famotidine (Pepcid) 20 mg PEG HS [facility] Last Admin: 07/24/19 22:38 Dose: 20 mg Ferrous Sulfate (Feosol) 300 mg GT HS [facility] Last Admin: 07/24/19 22:36 Dose: 300 mg Folic Acid (Folic Acid -) 1 mg GT HS [facility] Last Admin: 07/24/19 22:42 Dose: 1 mg Hydrochlorothiazide (Hctz -) 25 mg GT HS [facility] Last Admin: 07/24/19 22:42 Dose: 25 mg Lamotrigine (Lamictal -) 100 mg GT TID [facility] Last Admin: 07/25/19 06:23 Dose: 100 mg Levetiracetam (Keppra Oral Solution -) 500 mg GT BID [facility] Last Admin: 07/25/19 10:44 Dose: 500 mg Magnesium Hydroxide (Milk Of Magnesia -) 15 ml GT BID [facility] Last Admin: 07/25/19 10:42 Dose: 15 ml Metoprolol Tartrate (Lopressor -) 75 mg GT BID [facility] Last Admin: 07/25/19 10:43 Dose: 75 mg Multivitamins/Minerals (Certavite-Antioxidant Liquid) 15 ml GT DAILY [facility] Last Admin: 07/25/19 11:02 Dose: 15 ml Oseltamivir Phosphate (Tamiflu Oral Suspension -) 75 mg PO BID [facility] Stop: 07/25/19 21:59 Last Admin: 07/24/19 22:38 Dose: 75 ml Polyethylene Glycol (Miralax (For Daily Use) -) 17 gm GT [facility] Last Admin: 07/24/19 22:37 Dose: 17 gm Senna (Senna Oral Solution -) 8.8 mg GT HS [facility] Last Admin: 07/24/19 22:38 Dose: 8.8 mg A/P Influenza A Pneumonia Sepsis Acute Bronchospasm Cerebral Palsy Mental Retardation Functional Quadriplegia Seizure Disorder HTN - antibiotics per ID - tamiflu - inhaled bronchodilators - will continue medrol daily - O2 to keep Spo2 >90% - aspiration precautions - DVT prophylaxis Problem List - Problems (1) Influenza A Code(s): J10.1 - FLU DUE TO OTH IDENT INFLUENZA VIRUS W OTH RESP MANIFEST (2) Pneumonia Code(s): J18.9 - PNEUMONIA, UNSPECIFIED ORGANISM
[2019-07-25] MEDS ORDERED: methylPREDNISolone NA SUCC 40 MG/1 ML VIAL IVPUSH SCH (13:15)
[2019-07-25] MEDS: OSELTAMIVIR PHOSPHATE 6 MG/1 ML PO SCH (14:04)
--- NOTE | 2019-07-25 14:13 | PN ---
Teaching Attending Note Name of Resident: Jeff Raimres ATTENDING PHYSICIAN STATEMENT I saw and evaluated the patient. I reviewed the resident's note and discussed the case with the resident. I agree with the resident's findings and plan as documented. SUBJECTIVE: Non-verbal. OBJECTIVE: Appears comfortable. Smiling today. Afebrile, Hemodynamically Stable. SpO2 96% on 4L Last Vital Signs Temp Pulse Resp BP Pulse Ox 97.7 F 55 L 19 145/87 96 07/25/19 06:00 07/25/19 06:00 07/25/19 06:00 07/25/19 06:00 07/24/19 22:00 General - Non-verbal. Contractures + Heart - S1, S2, RRR lungs - bibasal crackles R>L Abdomen - Soft, non-tender. PEG in situ. PEG site clean. Bowel Sounds normal Extremities - wasting, contractures, no edema. Laboratory Results - last 24 hr 07/20/19 07/20/19 05:15 09:00 Lamotrigine 9.3 Levetiracetam 21.2 Current Medications Generic Name Dose Route Start Last Admin Trade Name Silvestre PRN Reason Stop Dose Admin Acetaminophen 650 mg 07/21/19 16:02 07/25/19 10:42 Tylenol Oral Solution - GT 650 mg Q4H PRN Administration FEVER Albuterol Sulfate 1 amp 07/20/19 22:12 07/21/19 11:31 Ventolin 0.083% Nebulizer Soln - NEB 1 amp Q6H PRN Administration SHORT OF BREATH/WHEEZING Albuterol/Ipratropium 1 amp 07/23/19 16:00 07/25/19 12:57 Duoneb - NEB 1 amp RQID [facility] Administration Amlodipine Besylate 5 mg 07/22/19 10:00 07/25/19 11:02 Norvasc - GT 5 mg DAILY [facility] Administration Amoxicillin/Clavulanate Potassium 1 tab 07/25/19 08:00 07/25/19 10:44 Augmentin - 500mg Tablet PO 1 tab TID [facility] Administration Budesonide 1 amp 07/21/19 10:00 07/24/19 13:12 Pulmicort 0.5 Mg Nebulizer - NEB 1 amp DAILY [facility] Administration Calcium Carbonate 500 mg 07/21/19 22:00 07/25/19 11:01 Calcium Carb Oral Suspension - GT 500 mg BID [facility] Administration Cholecalciferol 1,000 unit 07/22/19 10:00 07/25/19 11:02 Vitamin D3 Oral Solution - GT 1,000 ml DAILY [facility] Administration Enoxaparin Sodium 40 mg 07/21/19 10:00 07/25/19 10:42 Lovenox - SQ 40 mg DAILY [facility] Administration Famotidine 20 mg 07/21/19 22:00 07/24/19 22:38 Pepcid PEG 20 mg HS [facility] Administration Ferrous Sulfate 300 mg 07/21/19 22:00 07/24/19 22:36 Feosol GT 300 mg HS [facility] Administration Folic Acid 1 mg 07/21/19 22:00 07/24/19 22:42 Folic Acid - GT 1 mg HS [facility] Administration Hydrochlorothiazide 25 mg 07/21/19 22:00 07/24/19 22:42 Hctz - GT 25 mg HS [facility] Administration Lamotrigine 100 mg 07/21/19 06:00 07/25/19 06:23 Lamictal - GT 100 mg TID [facility] Administration Levetiracetam 500 mg 07/21/19 22:00 07/25/19 10:44 Keppra Oral Solution - GT 500 mg BID [facility] Administration Magnesium Hydroxide 15 ml 07/21/19 22:00 07/25/19 10:42 Milk Of Magnesia - GT 15 ml BID [facility] Administration Methylprednisolone Sodium Succinate 40 mg 07/25/19 13:15 Solu-Medrol - IVPUSH DAILY [facility] Metoprolol Tartrate 75 mg 07/21/19 22:00 07/25/19 10:43 Lopressor - GT 75 mg BID [facility] Administration Multivitamins/Minerals 15 ml 07/22/19 10:00 07/25/19 11:02 Certavite-Antioxidant Liquid GT 15 ml DAILY [facility] Administration Oseltamivir Phosphate 75 mg 07/20/19 22:00 07/24/19 22:38 Tamiflu Oral Suspension - PO 07/25/19 21:59 75 ml BID [facility] Administration Polyethylene Glycol 17 gm 07/21/19 22:00 07/24/19 22:37 Miralax (For Daily Use) - GT 17 gm HS [facility] Administration Senna 8.8 mg 07/21/19 22:00 07/24/19 22:38 Senna Oral Solution - GT 8.8 mg HS [facility] Administration Home Medications Medication Instructions Recorded Albuterol 0.083% Nebulizer Michelle 1 neb NEB Q6H PRN 07/20/19 [Ventolin 0.083% Nebulizer Soln -] Amlodipine Besylate 5 mg GT DAILY 07/20/19 Bisacodyl [Dulcolax -] 10 mg PO ASDIR 07/20/19 Budesonide [Pulmicort 0.5 mg 1 neb NEB DAILY 07/20/19 Nebulizer -] Calcium Carbonate/Vitamin D3 1 each GT HS 07/20/19 [Oystercal-D 500 mg-400 Unit Tb] Calcium Carbonate/Vitamin D3 2 each GT DAILY 07/20/19 [Oystercal-D 500 mg-400 Unit Tb] Cholecalciferol (Vitamin D3) 1,000 unit GT DAILY 07/20/19 [Vitamin D3 -] Famotidine 20 mg GT HS 07/20/19 Ferrous Sulfate 220 mg GT HS 07/20/19 Fexofenadine HCl 60 mg PO BID 07/20/19 Folic Acid 1 mg GT HS 07/20/19 Hydrochlorothiazide 25 mg GT HS 07/20/19 Lamotrigine 100 mg GT TID 07/20/19 Magnesium Hydroxide [Milk of 15 ml GT BID 07/20/19 Magnesia] Methylcellulose [Citrucel] 1,000 mg GT HS 07/20/19 Metoprolol Tartrate 75 mg GT BID 07/20/19 Multivitamin [Multiple Vitamins] 1 each GT DAILY 07/20/19 Polyethylene Glycol 3350 [Glycolax] 119 gm GT HS 07/20/19 Sennosides [Senna] 2 tab PO HS 07/20/19 Levetiracetam 1,000 mg GT BID 07/21/19 ASSESSMENT AND PLAN: 38 year old male with history of developmental delay, cognitive deficit, functional quadriplegia, epilepsy, Asthma (on Budesonide INH), presents from [facility] with worsening shortness of breath, found to have Flu positive pneumonia 1. Acute Hypoxic Respiratory Failure secondary to Flu/Pneumonia with Acute Asthma Exacerbation Still requiring supplemental O2. To Complete Tamiflu course today. Received 5 days of IV Zosyn - for transition to Augmentin for 2 additional days as per ID. Bronchodilator Nebs. IV Medrol to transition to oral Prednisone. Wean off supplemental O2. 2. Seizure Disorder - Continue Lamictal, Keppra. 3. HTN - Continue Norvasc, Metoprolol, HCTZ. 4. Fecal Impaction, noted on CT - resolved s/p large BM 07/24 Continue Senna, Miralax, MOM, Enema PRN. DVT Px - Lovenox SQ.
--- NOTE | 2019-07-25 14:21 | PN ---
Physical Exam: SUBJECTIVE: Pt is at baseline mentation. Pre and post shows pt is at 97% on 4L and desaturating to high 85% off Oxygen. Pt had bowel movements. Otherwise no issues or events. Denies f/c, n,v,d,sob, chest pain. OBJECTIVE: Vital Signs Period Temp Pulse Resp BP Sys/Osullivan Pulse Ox Last 24 Hr 97.7 F-98.9 F 55-71 16-19 132-154/78-96 85-98 GENERAL: Awake, alert, in no acute distress. Pt smiling HEAD: AT/AC EYES: KARRIE, EOMI EARS, NOSE, THROAT: Oropharynx clear without exudates. Dry mucous membranes. NECK: Supple without lymphadenopathy, or JVD. LUNGS: Scattered wheezing, and rhonchi bilaterally. No accessory muscle use. HEART: Regular rate and rhythm, normal S1 and S2 without murmur, rub or gallop. ABDOMEN: Soft, nontender, not distended. G-tube in situ; site clean dry. BS normal, no guarding, no rebound. EXTREMITIES: Contracted. 2+ pulses, warm, well-perfused. No peripheral edema. SKIN: Warm, dry. Laboratory Results - last 24 hr CBC,CMP WBC 3.4 K/mm3 (4.0-10.0) L 07/24/19 05:48 RBC 4.51 M/mm3 (4.00-5.60) 07/24/19 05:48 Hgb 13.3 GM/dL (11.7-16.9) 07/24/19 05:48 Hct 39.5 % (35.4-49) 07/24/19 05:48 MCV 87.6 fl (80-96) 07/24/19 05:48 MCH 29.5 pg (25.7-33.7) 07/24/19 05:48 MCHC 33.7 g/dl (32.0-35.9) 07/24/19 05:48 RDW 14.0 % (11.9-15.9) 07/24/19 05:48 Plt Count 228 K/MM3 (134-434) 07/24/19 05:48 MPV 8.6 fl (7.5-11.1) 07/24/19 05:48 Absolute Neuts (auto) 3.5 K/mm3 (1.5-8.0) 07/23/19 16:15 Neutrophils % 81.9 % (42.8-82.8) 07/23/19 16:15 Lymphocytes % 10.3 % (8-40) D 07/23/19 16:15 Monocytes % 7.1 % (3.8-10.2) 07/23/19 16:15 Eosinophils % 0.5 % (0-4.5) D 07/23/19 16:15 Basophils % 0.2 % (0-2.0) 07/23/19 16:15 Nucleated RBC % 0 % (0-0) 07/23/19 16:15 Sodium 138 mmol/L (136-145) 07/24/19 05:48 Potassium 3.8 mmol/L (3.5-5.1) 07/24/19 05:48 Chloride 103 mmol/L (98-107) 07/24/19 05:48 Carbon Dioxide 30 mmol/L (21-32) 07/24/19 05:48 Anion Gap 6 MMOL/L (8-16) L 07/24/19 05:48 BUN 4.0 mg/dL (7-18) L 07/24/19 05:48 Creatinine 0.6 mg/dL (0.55-1.3) 07/24/19 05:48 Est GFR (CKD-EPI)AfAm 146.79 07/24/19 05:48 Est GFR (CKD-EPI)NonAf 126.65 07/24/19 05:48 POC Glucometer 90 UNITS (80-120) 07/21/19 11:08 Random Glucose 114 mg/dL (74-106) H 07/24/19 05:48 Lactic Acid 1.9 mmol/L (0.4-2.0) 07/20/19 20:18 Calcium 8.7 mg/dL (8.5-10.1) 07/24/19 05:48 Phosphorus 2.2 mg/dL (2.5-4.9) L 07/21/19 05:15 Magnesium 1.9 mg/dL (1.8-2.4) 07/21/19 05:15 Total Bilirubin 0.4 mg/dL (0.2-1) 07/24/19 05:48 AST 19 U/L (15-37) 07/24/19 05:48 ALT 45 U/L (13-61) 07/24/19 05:48 Alkaline Phosphatase 103 U/L (45-117) 07/24/19 05:48 Troponin I < 0.02 ng/ml (0.00-0.05) 07/20/19 16:00 Total Protein 7.2 g/dl (6.4-8.2) 07/24/19 05:48 Albumin 3.2 g/dl (3.4-5.0) L 07/24/19 05:48 07/20/19 07/20/19 05:15 09:00 Lamotrigine 9.3 Levetiracetam 21.2 Active Medications Current Medications Acetaminophen (Tylenol Oral Solution -) 650 mg GT Q4H PRN PRN Reason: FEVER Last Admin: 07/25/19 10:42 Dose: 650 mg Albuterol Sulfate (Ventolin 0.083% Nebulizer Soln -) 1 amp NEB Q6H PRN PRN Reason: SHORT OF BREATH/WHEEZING Last Admin: 07/21/19 11:31 Dose: 1 amp Albuterol/Ipratropium (Duoneb -) 1 amp NEB RQID [facility] Last Admin: 07/25/19 12:57 Dose: 1 amp Amlodipine Besylate (Norvasc -) 5 mg GT DAILY [facility] Last Admin: 07/25/19 11:02 Dose: 5 mg Amoxicillin/Clavulanate Potassium (Augmentin - 500mg Tablet) 1 tab PO TID [facility] Last Admin: 07/25/19 14:05 Dose: 1 tab Budesonide (Pulmicort 0.5 Mg Nebulizer -) 1 amp NEB DAILY [facility] Last Admin: 07/24/19 13:12 Dose: 1 amp Calcium Carbonate (Calcium Carb Oral Suspension -) 500 mg GT BID [facility] Last Admin: 07/25/19 11:01 Dose: 500 mg Cholecalciferol (Vitamin D3 Oral Solution -) 1,000 unit GT DAILY [facility] Last Admin: 07/25/19 11:02 Dose: 1,000 ml Enoxaparin Sodium (Lovenox -) 40 mg SQ DAILY [facility] Last Admin: 07/25/19 10:42 Dose: 40 mg Famotidine (Pepcid) 20 mg PEG HS [facility] Last Admin: 07/24/19 22:38 Dose: 20 mg Ferrous Sulfate (Feosol) 300 mg GT HS [facility] Last Admin: 07/24/19 22:36 Dose: 300 mg Folic Acid (Folic Acid -) 1 mg GT [facility] Last Admin: 07/24/19 22:42 Dose: 1 mg Hydrochlorothiazide (Hctz -) 25 mg GT [facility] Last Admin: 07/24/19 22:42 Dose: 25 mg Lamotrigine (Lamictal -) 100 mg GT TID [facility] Last Admin: 07/25/19 06:23 Dose: 100 mg Levetiracetam (Keppra Oral Solution -) 500 mg GT BID [facility] Last Admin: 07/25/19 10:44 Dose: 500 mg Magnesium Hydroxide (Milk Of Magnesia -) 15 ml GT BID [facility] Last Admin: 07/25/19 10:42 Dose: 15 ml Methylprednisolone Sodium Succinate (Solu-Medrol -) 40 mg IVPUSH DAILY [facility] Last Admin: 07/25/19 14:05 Dose: 40 mg Metoprolol Tartrate (Lopressor -) 75 mg GT BID [facility] Last Admin: 07/25/19 10:43 Dose: 75 mg Multivitamins/Minerals (Certavite-Antioxidant Liquid) 15 ml GT DAILY [facility] Last Admin: 07/25/19 11:02 Dose: 15 ml Oseltamivir Phosphate (Tamiflu Oral Suspension -) 75 mg PO BID [facility] Stop: 07/25/19 21:59 Last Admin: 07/25/19 14:04 Dose: 75 mg Polyethylene Glycol (Miralax (For Daily Use) -) 17 gm GT [facility] Last Admin: 07/24/19 22:37 Dose: 17 gm Senna (Senna Oral Solution -) 8.8 mg GT [facility] Last Admin: 07/24/19 22:38 Dose: 8.8 mg Home Medications Medication Instructions Recorded Albuterol 0.083% Nebulizer Michelle 1 neb NEB Q6H PRN 07/20/19 [Ventolin 0.083% Nebulizer Soln -] Amlodipine Besylate 5 mg GT DAILY 07/20/19 Bisacodyl [Dulcolax -] 10 mg PO ASDIR 07/20/19 Budesonide [Pulmicort 0.5 mg 1 neb NEB DAILY 07/20/19 Nebulizer -] Calcium Carbonate/Vitamin D3 1 each GT 07/20/19 [Oystercal-D 500 mg-400 Unit Tb] Calcium Carbonate/Vitamin D3 2 each GT DAILY 07/20/19 [Oystercal-D 500 mg-400 Unit Tb] Cholecalciferol (Vitamin D3) 1,000 unit GT DAILY 07/20/19 [Vitamin D3 -] Famotidine 20 mg GT HS 07/20/19 Ferrous Sulfate 220 mg GT HS 07/20/19 Fexofenadine HCl 60 mg PO BID 07/20/19 Folic Acid 1 mg GT HS 07/20/19 Hydrochlorothiazide 25 mg GT HS 07/20/19 Lamotrigine 100 mg GT TID 07/20/19 Magnesium Hydroxide [Milk of 15 ml GT BID 07/20/19 Magnesia] Methylcellulose [Citrucel] 1,000 mg GT HS 07/20/19 Metoprolol Tartrate 75 mg GT BID 07/20/19 Multivitamin [Multiple Vitamins] 1 each GT DAILY 07/20/19 Polyethylene Glycol 3350 [Glycolax] 119 gm GT HS 07/20/19 Sennosides [Senna] 2 tab PO HS 07/20/19 Levetiracetam 1,000 mg GT BID 07/21/19 Microbiology 07/20/19 16:00 Blood - Peripheral Venous Blood Culture - Preliminary NO GROWTH OBTAINED AFTER 96 HOURS, INCUBATION TO CONTINUE FOR 1 DAYS. 07/20/19 16:00 Blood - Peripheral Venous Blood Culture - Preliminary NO GROWTH OBTAINED AFTER 96 HOURS, INCUBATION TO CONTINUE FOR 1 DAYS. 07/20/19 16:00 Urine - Urine - Catheterized Urine Culture - Final NO GROWTH OBTAINED ASSESSMENT/PLAN: 38 y/o M with history of congenital quadriplegia, epilepsy, MR presents from [facility] due to worsening shortness of breath #Acute hypoxic resp distress 2/2 to influenza A vs PNA Cont medrol w/ inhaled bronchodilators- dounebs Can switch to PO prednisone 40mg tomorrow Zosyn D4 switched to Augmentin 500 D1 for 2 more days for total of 7 days D/c Tamiflu Will cont to wean off of O2 Pt has O2 PRN at [place] Contacted [place], Discussed with [employer], who said he can come back if his O2 sat is above 88%, will reassess in the am and contact [employer] in the am. Pt O2 saturation on 2L was 97% and off oxygen for 15 minutes was O2 93%. #Quadriplegia chronic #Seizurre disorder cont Keppra 500 Lamictal 100 Diazepam PRN #HTN HCTZ 25, amlodipine 5, metoprolol 75 bid #[place]leus CT abdomen pelvis- Fecal impaction noted. On Miralax, senna, Fleet enema #FEN Jevity feeds at lowest trate and titrate up #DVT ppx Lovenox 40 #Dispo: will cont to monitor, cont abx augmentin, f/u labs, wean off O2, likely D/c tomorrow Visit type - Emergency Visit Emergency Visit: Yes ED Registration Date: 07/20/19 Care time: The patient presented to the Emergency Department on the above date and was hospitalized for further evaluation of their emergent condition. - New Patient This patient is new to me today: Yes Date on this admission: 07/26/19 - Critical Care Critical Care patient: No - Discharge Referral Referred to [facility] No ATTENDING PHYSICIAN STATEMENT I saw and evaluated the patient. I reviewed the resident's note and discussed the case with the resident. I agree with the resident's findings and plan as documented. SUBJECTIVE: OBJECTIVE: ASSESSMENT AND PLAN:
[2019-07-25] MEDS: POLYETHYLENE GLYCOL 3350 119 GM BTL GT SCH (22:48)
[2019-07-25] MEDS: SENNOSIDES 8.8 MG/5 ML BULK BOTTLE GT SCH (22:48)
[2019-07-25] MEDS: FERROUS SO4 300 MG/5 ML ORAL SOLN UNIT DOSE CUPS GT SCH (22:51)
[2019-07-25] MEDS: FAMOTIDINE 40 MG/5 ML ORAL SUSPENSION PEG SCH (22:53)
[2019-07-25] MEDS: FOLIC ACID 1 MG TABLET (FP) GT SCH (22:55)
[2019-07-25] MEDS: HYDROCHLOROTHIAZIDE 25 MG TABLET (FP) GT SCH (22:56)
[2019-07-26 06:44] LABS: HEMATOCRIT 40.5 % (35.4-49); HEMOGLOBIN 13.3 GM/dL (11.7-16.9); MCH 28.9 pg (25.7-33.7); MCHC 32.9 g/dl (32.0-35.9); MEAN CELL VOLUME 87.7 fl (80-96); MEAN PLT VOLUME 8.2 fl (7.5-11.1); PLATELET COUNT 265 K/MM3 (134-434); RBC 4.61 M/mm3 (4.00-5.60); RDW 13.5 % (11.9-15.9)
[2019-07-26] MEDS: lamoTRIgine 100 MG TABLET GT SCH ×2 (06:45→13:13)
[2019-07-26] MEDS: AMOX TR/POT CLAV 500MG/125MG TABLETS (FP) PO SCH ×2 (06:45→13:13)
[2019-07-26 07:18] LABS: BILIRUBIN,TOTAL 0.3 mg/dL (0.2-1); BLOOD UREA NITROGEN 7.5 mg/dL (7-18); CALCIUM 8.8 mg/dL (8.5-10.1); CREATININE 0.5 mg/dL (0.55-1.3); POTASSIUM 3.6 mmol/L (3.5-5.1); TOT PROT 6.9 g/dl (6.4-8.2)
[2019-07-26] MEDS: BUDESONIDE 0.5 MG/2 ML INH SUSP VIAL NEB SCH (07:30)
[2019-07-26] MEDS: ALBUTEROL SO4 2.5/IPRATROPIUM 0.5 INH SOL 3 ML VIAL.NEB. NEB SCH ×2 (07:30→11:34)
[2019-07-26 07:32] VITALS: BP 129/63; PULSE 69; TEMP 98.1
[2019-07-26] MEDS ORDERED: PT OWN MED DRAWER 7, Y5N ONE (09:29)
[2019-07-26] MEDS ORDERED: predniSONE 20 MG TABLET (UD) PO SCH (10:00)
[2019-07-26] MEDS: METOPROLOL TARTRATE 50 MG TABLET (FP) GT SCH (10:13)
[2019-07-26] MEDS: levETIRAcetam 500 MG/5 ML ORAL SOLUTION (UNIT-DOSE CUPS) GT SCH (10:14)
[2019-07-26] MEDS: MAGNESIUM HYDROX 2400MG/30ML ORAL SUSPENSION 30 ML CUP GT SCH (10:14)
[2019-07-26] MEDS: amLODIPine BESYLATE 5 MG TABLET (FP) GT SCH (10:15)
[2019-07-26] MEDS: CHOLECALCIFEROL (VIT D SOLUTION) 400 UNIT/1 ML DROPS GT SCH (10:16)
[2019-07-26] MEDS: MULTIVIT-MINERALS ORAL LIQUID GT SCH (10:16)
[2019-07-26] MEDS: CALCIUM CARBONATE SUSPENSION - 500 MG/5 ML ML GT SCH (10:18)
[2019-07-26] MEDS: ENOXAPARIN NA (PORCINE) 40 MG/0.4 ML DISP.SYRIN SQ SCH (10:18)
--- NOTE | 2019-07-26 11:20 | PN ---
Teaching Attending Note Name of Resident: Jeff Ramires ATTENDING PHYSICIAN STATEMENT I saw and evaluated the patient. I reviewed the resident's note and discussed the case with the resident. I agree with the resident's findings and plan as documented. SUBJECTIVE: Non-verbal - unable to participate in medical interview. OBJECTIVE: Appears comfortable. Smiling. Afebrile, Hemodynamically Stable. SpO2 97% on 2L. Last Vital Signs Temp Pulse Resp BP Pulse Ox 98.1 F 69 18 129/63 97 07/26/19 06:00 07/26/19 06:00 07/26/19 06:00 07/26/19 06:00 07/25/19 22:00 General - Non-verbal. Contractures + Heart - S1, S2, RRR lungs - few bibasal crackles R>L Abdomen - Soft, non-tender. PEG in situ. PEG site clean. Bowel Sounds normal Extremities - wasting, contractures, no edema. Laboratory Results - last 24 hr 07/26/19 07/26/19 05:10 05:10 WBC 6.0 RBC 4.61 Hgb 13.3 Hct 40.5 MCV 87.7 MCH 28.9 MCHC 32.9 RDW 13.5 Plt Count 265 MPV 8.2 Sodium 140 Potassium 3.6 Chloride 103 Carbon Dioxide 31 Anion Gap 6 L BUN 7.5 Creatinine 0.5 L Est GFR (CKD-EPI)AfAm 158.21 Est GFR (CKD-EPI)NonAf 136.51 Random Glucose 110 H Calcium 8.8 Total Bilirubin 0.3 AST 9 L ALT 34 Alkaline Phosphatase 87 Total Protein 6.9 Albumin 3.0 L Current Medications Generic Name Dose Route Start Last Admin Trade Name Hunterq PRN Reason Stop Dose Admin Acetaminophen 650 mg 07/21/19 16:02 07/25/19 10:42 Tylenol Oral Solution - GT 650 mg Q4H PRN Administration FEVER Albuterol Sulfate 1 amp 07/20/19 22:12 07/21/19 11:31 Ventolin 0.083% Nebulizer Soln - NEB 1 amp Q6H PRN Administration SHORT OF BREATH/WHEEZING Albuterol/Ipratropium 1 amp 07/23/19 16:00 07/26/19 07:30 Duoneb - NEB 1 amp RQID [facility] Administration Amlodipine Besylate 5 mg 07/22/19 10:00 01/16/20 10:15 Norvasc - GT 5 mg DAILY [facility] Administration Amoxicillin/Clavulanate Potassium 1 tab 07/25/19 08:00 07/26/19 06:45 Augmentin - 500mg Tablet PO 1 tab TID [facility] Administration Budesonide 1 amp 07/21/19 10:00 07/24/19 13:12 Pulmicort 0.5 Mg Nebulizer - NEB 1 amp DAILY [facility] Administration Calcium Carbonate 500 mg 07/21/19 22:00 07/26/19 10:18 Calcium Carb Oral Suspension - GT 5 ml BID [facility] Administration Cholecalciferol 1,000 unit 07/22/19 10:00 07/26/19 10:16 Vitamin D3 Oral Solution - GT 1,000 unit DAILY [facility] Administration Enoxaparin Sodium 40 mg 07/21/19 10:00 07/26/19 10:18 Lovenox - SQ 40 mg DAILY [facility] Administration Famotidine 20 mg 07/21/19 22:00 07/25/19 22:53 Pepcid PEG 20 mg HS [facility] Administration Ferrous Sulfate 300 mg 07/21/19 22:00 07/25/19 22:51 Feosol GT 300 mg HS [facility] Administration Folic Acid 1 mg 07/21/19 22:00 07/25/19 22:55 Folic Acid - GT 1 mg HS [facility] Administration Hydrochlorothiazide 25 mg 07/21/19 22:00 07/25/19 22:56 Hctz - GT 25 mg HS [facility] Administration Lamotrigine 100 mg 07/21/19 06:00 07/26/19 06:45 Lamictal - GT 100 mg TID [facility] Administration Levetiracetam 500 mg 07/21/19 22:00 07/26/19 10:14 Keppra Oral Solution - GT 500 mg BID [facility] Administration Magnesium Hydroxide 15 ml 07/21/19 22:00 07/26/19 10:14 Milk Of Magnesia - GT 15 ml BID [facility] Administration Metoprolol Tartrate 75 mg 07/21/19 22:00 07/26/19 10:13 Lopressor - GT 75 mg BID [facility] Administration Multivitamins/Minerals 15 ml 07/22/19 10:00 07/26/19 10:16 Certavite-Antioxidant Liquid GT 15 ml DAILY [facility] Administration Polyethylene Glycol 17 gm 07/21/19 22:00 07/25/19 22:48 Miralax (For Daily Use) - GT Not Given HS [facility] Prednisone 40 mg 07/26/19 10:00 07/26/19 10:14 Deltasone - PO 40 mg DAILY [facility] Administration Senna 8.8 mg 07/21/19 22:00 07/25/19 22:48 Senna Oral Solution - GT Not Given [facility] Home Medications Medication Instructions Recorded Albuterol 0.083% Nebulizer Michelle 1 neb NEB Q6H PRN 07/20/19 [Ventolin 0.083% Nebulizer Soln -] Amlodipine Besylate 5 mg GT DAILY 07/20/19 Bisacodyl [Dulcolax -] 10 mg PO ASDIR 07/20/19 Budesonide [Pulmicort 0.5 mg 1 neb NEB DAILY 07/20/19 Nebulizer -] Calcium Carbonate/Vitamin D3 1 each GT HS 07/20/19 [Oystercal-D 500 mg-400 Unit Tb] Calcium Carbonate/Vitamin D3 2 each GT DAILY 07/20/19 [Oystercal-D 500 mg-400 Unit Tb] Cholecalciferol (Vitamin D3) 1,000 unit GT DAILY 07/20/19 [Vitamin D3 -] Famotidine 20 mg GT HS 07/20/19 Ferrous Sulfate 220 mg GT HS 07/20/19 Fexofenadine HCl 60 mg PO BID 07/20/19 Folic Acid 1 mg GT HS 07/20/19 Hydrochlorothiazide 25 mg GT HS 07/20/19 Lamotrigine 100 mg GT TID 07/20/19 Magnesium Hydroxide [Milk of 15 ml GT BID 07/20/19 Magnesia] Methylcellulose [Citrucel] 1,000 mg GT HS 07/20/19 Metoprolol Tartrate 75 mg GT BID 07/20/19 Multivitamin [Multiple Vitamins] 1 each GT DAILY 07/20/19 Polyethylene Glycol 3350 [Glycolax] 119 gm GT 07/20/19 Sennosides [Senna] 2 tab PO HS 07/20/19 Levetiracetam 1,000 mg GT BID 07/21/19 ASSESSMENT AND PLAN: 38 year old male with history of developmental delay, cognitive deficit, functional quadriplegia, epilepsy, Asthma (on Budesonide INH), presents from [facility] with worsening shortness of breath, found to have Flu positive pneumonia 1. Acute Hypoxic Respiratory Failure secondary to Flu (influenza A)/Pneumonia with Acute Asthma Exacerbation Still requiring supplemental O2 - desaturating on RA - for DC to [place] with supplemental O2. completed Tamiflu course and 5 days of IV Zosyn - transitioned to oral Augmentin - needs 1 additional day on discharge. Continue Bronchodilator Nebs. IV Medrol to transitioned to oral Prednisone - to complete 5-6 days total. 2. Seizure Disorder - Continue Lamictal, Keppra. 3. HTN - Continue Norvasc, Metoprolol, HCTZ. 4. Fecal Impaction, noted on CT - resolved s/p large BM 07/24 Continue Senna, Miralax, MOM, Enema PRN. Medically optimized for transfer to [place].
--- NOTE | 2019-07-26 11:39 | PN ---
Progress Note (short form) - Note Progress Note: PULMONARY Pt nonverbal. No fevers recorded. Vital Signs Period Temp Pulse Resp BP Sys/Osullivan Pulse Ox Last 24 Hr 97.8 F-99.7 F 58-78 18-19 115-144/63-91 85-97 Gen: less tachypneic Heart: RRR Lung: scattered rhonchi Abd: soft, nontender Ext: no edema CBC, BMP 07/26/19 05:10 07/26/19 05:10 Active Medications Acetaminophen (Tylenol Oral Solution -) 650 mg GT Q4H PRN PRN Reason: FEVER Last Admin: 07/25/19 10:42 Dose: 650 mg Albuterol Sulfate (Ventolin 0.083% Nebulizer Soln -) 1 amp NEB Q6H PRN PRN Reason: SHORT OF BREATH/WHEEZING Last Admin: 07/21/19 11:31 Dose: 1 amp Albuterol/Ipratropium (Duoneb -) 1 amp NEB RQID [facility] Last Admin: 07/26/19 11:34 Dose: 1 amp Amlodipine Besylate (Norvasc -) 5 mg GT DAILY [facility] Last Admin: 07/26/19 10:15 Dose: 5 mg Amoxicillin/Clavulanate Potassium (Augmentin - 500mg Tablet) 1 tab PO TID [facility] Last Admin: 07/26/19 06:45 Dose: 1 tab Budesonide (Pulmicort 0.5 Mg Nebulizer -) 1 amp NEB DAILY [facility] Last Admin: 07/26/19 07:30 Dose: 1 amp Calcium Carbonate (Calcium Carb Oral Suspension -) 500 mg GT BID [facility] Last Admin: 07/26/19 10:18 Dose: 5 ml Cholecalciferol (Vitamin D3 Oral Solution -) 1,000 unit GT DAILY [facility] Last Admin: 07/26/19 10:16 Dose: 1,000 unit Enoxaparin Sodium (Lovenox -) 40 mg SQ DAILY [facility] Last Admin: 07/26/19 10:18 Dose: 40 mg Famotidine (Pepcid) 20 mg PEG HS [facility] Last Admin: 07/25/19 22:53 Dose: 20 mg Ferrous Sulfate (Feosol) 300 mg GT HS [facility] Last Admin: 07/25/19 22:51 Dose: 300 mg Folic Acid (Folic Acid -) 1 mg GT HS [facility] Last Admin: 07/25/19 22:55 Dose: 1 mg Hydrochlorothiazide (Hctz -) 25 mg GT HS [facility] Last Admin: 07/25/19 22:56 Dose: 25 mg Lamotrigine (Lamictal -) 100 mg GT TID [facility] Last Admin: 07/26/19 06:45 Dose: 100 mg Levetiracetam (Keppra Oral Solution -) 500 mg GT BID [facility] Last Admin: 07/26/19 10:14 Dose: 500 mg Magnesium Hydroxide (Milk Of Magnesia -) 15 ml GT BID [facility] Last Admin: 07/26/19 10:14 Dose: 15 ml Metoprolol Tartrate (Lopressor -) 75 mg GT BID [facility] Last Admin: 07/26/19 10:13 Dose: 75 mg Multivitamins/Minerals (Certavite-Antioxidant Liquid) 15 ml GT DAILY [facility] Last Admin: 07/26/19 10:16 Dose: 15 ml Polyethylene Glycol (Miralax (For Daily Use) -) 17 gm GT [facility] Last Admin: 07/25/19 22:48 Dose: Not Given Prednisone (Deltasone -) 40 mg PO DAILY [facility] Last Admin: 07/26/19 10:14 Dose: 40 mg Senna (Senna Oral Solution -) 8.8 mg GT [facility] Last Admin: 07/25/19 22:48 Dose: Not Given A/P Influenza A Pneumonia Sepsis Acute Bronchospasm Cerebral Palsy Mental Retardation Functional Quadriplegia Seizure Disorder HTN - antibiotics per ID - completed tamiflu - inhaled bronchodilators - can d/c steroids in AM - O2 to keep Spo2 >90% - aspiration precautions - DVT prophylaxis Problem List - Problems (1) Influenza A Code(s): J10.1 - FLU DUE TO OTH IDENT INFLUENZA VIRUS W OTH RESP MANIFEST (2) Pneumonia Code(s): J18.9 - PNEUMONIA, UNSPECIFIED ORGANISM
--- NOTE | 2019-07-26 16:29 | PN ---
Physical Exam: SUBJECTIVE: Patient seen and examined Pt is at baseline mentation. Pt with O2 saturation of 85 at rest. Pt non- ambulatory. Pt placed on 2L nasal canula and saturation improved to 95. Pt had bowel movements. Otherwise no issues or events. Denies f/c, n,v,d,sob, chest pain. OBJECTIVE: Vital Signs Period Temp Pulse Resp BP Sys/Osullivan Pulse Ox Last 24 Hr 97.8 F-98.3 F 60-78 18-19 115-144/63-91 97-97 GENERAL: Awake, alert, in no acute distress. Pt smiling HEAD: AT/AC EYES: KARRIE, EOMI EARS, NOSE, THROAT: Oropharynx clear without exudates. Dry mucous membranes. NECK: Supple without lymphadenopathy, or JVD. LUNGS: Scattered wheezing, and rhonchi bilaterally. No accessory muscle use. HEART: Regular rate and rhythm, normal S1 and S2 without murmur, rub or gallop. ABDOMEN: Soft, nontender, not distended. G-tube in situ; site clean dry. BS normal, no guarding, no rebound. EXTREMITIES: Contracted. 2+ pulses, warm, well-perfused. No peripheral edema. SKIN: Warm, dry. Laboratory Results - last 24 hr 07/26/19 07/26/19 05:10 05:10 WBC 6.0 RBC 4.61 Hgb 13.3 Hct 40.5 MCV 87.7 MCH 28.9 MCHC 32.9 RDW 13.5 Plt Count 265 MPV 8.2 Sodium 140 Potassium 3.6 Chloride 103 Carbon Dioxide 31 Anion Gap 6 L BUN 7.5 Creatinine 0.5 L Est GFR (CKD-EPI)AfAm 158.21 Est GFR (CKD-EPI)NonAf 136.51 Random Glucose 110 H Calcium 8.8 Total Bilirubin 0.3 AST 9 L ALT 34 Alkaline Phosphatase 87 Total Protein 6.9 Albumin 3.0 L Home Medications Medication Instructions Recorded Albuterol 0.083% Nebulizer Michelle 1 neb NEB Q6H PRN 07/20/19 [Ventolin 0.083% Nebulizer Soln -] Amlodipine Besylate 5 mg GT DAILY 07/20/19 Bisacodyl [Bisacodyl -] 10 mg PO ASDIR 07/20/19 Budesonide [Pulmicort 0.5 mg 1 neb NEB DAILY 07/20/19 Nebulizer -] Calcium Carbonate/Vitamin D3 1 tab GT HS 07/20/19 [Oystercal-D 500 mg-400 Unit Tb] Calcium Carbonate/Vitamin D3 2 tab GT DAILY 07/20/19 [Oystercal-D 500 mg-400 Unit Tb] Cholecalciferol (Vitamin D3) 1,000 unit GT DAILY 07/20/19 [Vitamin D3 -] Ferrous Sulfate 220 mg GT HS 07/20/19 Fexofenadine HCl 60 mg PO BID 07/20/19 Folic Acid 1 mg GT HS 07/20/19 Hydrochlorothiazide 25 mg GT HS 07/20/19 Lamotrigine 100 mg GT TID 07/20/19 Magnesium Hydroxide [Milk of 15 ml GT BID 07/20/19 Magnesia] Methylcellulose [Citrucel] 1,000 mg GT HS 07/20/19 Metoprolol Tartrate 75 mg GT BID 07/20/19 Multivitamin [Multiple Vitamins] 1 each GT DAILY 07/20/19 Polyethylene Glycol 3350 [Glycolax] 119 gm GT HS 07/20/19 Sennosides [Senna -] 2 tab PO HS 07/20/19 Levetiracetam 1,000 mg GT BID 07/21/19 Amoxicillin/Potassium Clav 500 each PO TID 1 Days tablet 07/26/19 [Augmentin 500-125 Tablet] Famotidine 2 tab GT HS 07/26/19 predniSONE [Deltasone -] 40 mg PO DAILY 3 Days tablet 07/26/19 Microbiology 07/20/19 16:00 Blood - Peripheral Venous Blood Culture - Final NO GROWTH AFTER 5 DAYS INCUBATION 07/20/19 16:00 Blood - Peripheral Venous Blood Culture - Final NO GROWTH AFTER 5 DAYS INCUBATION 07/20/19 16:00 Urine - Urine - Catheterized Urine Culture - Final NO GROWTH OBTAINED ASSESSMENT/PLAN: 38 y/o M with history of congenital quadriplegia, epilepsy, MR presents from [facility] due to respiratory distress w/ desaturation to the 90s, temperature to 100.2 and tachycardic to 130s 2/2 to acute respiratory failure likely due to influenza with pneumonia. ED physicians also documented witnessed seizures in the ED for less than 2 minutes and started pt on Keppra and Lamictal. Pt was started on Tamiflu 75mg GT Liquid BID and zosyn 3.375grams IV Q8H. Pt was also found to have fecal impaction on CT a/p for which miralax and senna relieved the symptoms. Pulmonary saw pt and started pt on a short course of medrol w/ inhaled bronchodilators/dounebs. Pt symptoms improved significantly , therefore steroids were switched to Prednisone 40mg PO and Augmentin PO 500 mg. Pt however failed pre and post and was sent to [place] on oxygen. Pt was also sent to [place] on Prednisone 40mg for 3 more days to complete 5-6 days total and Augmentin 500 mg for 1 more day. Ekg: sinus tachycardia at 114. no elvin or depressions, no electrical alternans flu A positive CT chest reveals no acute intracranial pathology. Cardiomegaly CT abdomen pelvis reveals no intraabdominal pathology. Fecal impaction noted. ECHO: EF 67%, mild TR, normal findings Jevity tube feeds; initiated at lowest rate, to titrate accordingly. ATTENDING PHYSICIAN STATEMENT I saw and evaluated the patient. I reviewed the resident's note and discussed the case with the resident. I agree with the resident's findings and plan as documented. SUBJECTIVE: OBJECTIVE: ASSESSMENT AND PLAN:
--- NOTE | 2019-08-02 06:16 | DS ---
Physical Exam: SUBJECTIVE: Patient seen and examined Pt is at baseline mentation. Pt with O2 saturation of 85 at rest. Pt non- ambulatory. Pt placed on 2L nasal canula and saturation improved to 95. Pt had bowel movements. Otherwise no issues or events. Denies f/c, n,v,d,sob, chest pain. OBJECTIVE: Last Vital Signs Temp Pulse Resp BP Pulse Ox 98.1 F 69 18 129/63 97 07/26/19 06:00 07/26/19 06:00 07/26/19 06:00 07/26/19 06:00 07/25/19 22:00 PHYSICAL EXAM GENERAL: Awake, alert, in no acute distress. Pt smiling HEAD: AT/AC EYES: KARRIE, EOMI EARS, NOSE, THROAT: Oropharynx clear without exudates. Dry mucous membranes. NECK: Supple without lymphadenopathy, or JVD. LUNGS: Scattered wheezing, and rhonchi bilaterally. No accessory muscle use. HEART: Regular rate and rhythm, normal S1 and S2 without murmur, rub or gallop. ABDOMEN: Soft, nontender, not distended. G-tube in situ; site clean dry. BS normal, no guarding, no rebound. EXTREMITIES: Contracted. 2+ pulses, warm, well-perfused. No peripheral edema. SKIN: Warm, dry. LABS CBC,CMP WBC 6.0 K/mm3 (4.0-10.0) 07/26/19 05:10 RBC 4.61 M/mm3 (4.00-5.60) 07/26/19 05:10 Hgb 13.3 GM/dL (11.7-16.9) 07/26/19 05:10 Hct 40.5 % (35.4-49) 07/26/19 05:10 MCV 87.7 fl (80-96) 07/26/19 05:10 MCH 28.9 pg (25.7-33.7) 07/26/19 05:10 MCHC 32.9 g/dl (32.0-35.9) 07/26/19 05:10 RDW 13.5 % (11.9-15.9) 07/26/19 05:10 Plt Count 265 K/MM3 (134-434) 07/26/19 05:10 MPV 8.2 fl (7.5-11.1) 07/26/19 05:10 Absolute Neuts (auto) 3.5 K/mm3 (1.5-8.0) 07/23/19 16:15 Neutrophils % 81.9 % (42.8-82.8) 07/23/19 16:15 Lymphocytes % 10.3 % (8-40) D 07/23/19 16:15 Monocytes % 7.1 % (3.8-10.2) 07/23/19 16:15 Eosinophils % 0.5 % (0-4.5) D 07/23/19 16:15 Basophils % 0.2 % (0-2.0) 07/23/19 16:15 Nucleated RBC % 0 % (0-0) 07/23/19 16:15 Sodium 140 mmol/L (136-145) 07/26/19 05:10 Potassium 3.6 mmol/L (3.5-5.1) 07/26/19 05:10 Chloride 103 mmol/L (98-107) 07/26/19 05:10 Carbon Dioxide 31 mmol/L (21-32) 07/26/19 05:10 Anion Gap 6 MMOL/L (8-16) L 07/26/19 05:10 BUN 7.5 mg/dL (7-18) 07/26/19 05:10 Creatinine 0.5 mg/dL (0.55-1.3) L 07/26/19 05:10 Est GFR (CKD-EPI)AfAm 158.21 07/26/19 05:10 Est GFR (CKD-EPI)NonAf 136.51 07/26/19 05:10 POC Glucometer 90 UNITS (80-120) 07/21/19 11:08 Random Glucose 110 mg/dL (74-106) H 07/26/19 05:10 Lactic Acid 1.9 mmol/L (0.4-2.0) 07/20/19 20:18 Calcium 8.8 mg/dL (8.5-10.1) 07/26/19 05:10 Phosphorus 2.2 mg/dL (2.5-4.9) L 07/21/19 05:15 Magnesium 1.9 mg/dL (1.8-2.4) 07/21/19 05:15 Total Bilirubin 0.3 mg/dL (0.2-1) 07/26/19 05:10 AST 9 U/L (15-37) L 07/26/19 05:10 ALT 34 U/L (13-61) 07/26/19 05:10 Alkaline Phosphatase 87 U/L (45-117) 07/26/19 05:10 Troponin I < 0.02 ng/ml (0.00-0.05) 07/20/19 16:00 Total Protein 6.9 g/dl (6.4-8.2) 07/26/19 05:10 Albumin 3.0 g/dl (3.4-5.0) L 07/26/19 05:10 Microbiology 07/20/19 16:00 Blood - Peripheral Venous Blood Culture - Final NO GROWTH AFTER 5 DAYS INCUBATION 07/20/19 16:00 Blood - Peripheral Venous Blood Culture - Final NO GROWTH AFTER 5 DAYS INCUBATION 07/20/19 16:00 Urine - Urine - Catheterized Urine Culture - Final NO GROWTH OBTAINED HOSPITAL COURSE: Date of Admission:07/20/19 38 y/o M with history of congenital quadriplegia, epilepsy, MR presents from [facility] due to respiratory distress w/ desaturation to the 90s, temperature to 100.2 and tachycardic to 130s 2/2 to acute respiratory failure likely due to influenza with pneumonia. ED physicians also documented witnessed seizures in the ED for less than 2 minutes and started pt on Keppra and Lamictal. Pt was started on Tamiflu 75mg GT Liquid BID and zosyn 3.375grams IV Q8H. Pt was also found to have fecal impaction on CT a/p for which miralax and senna relieved the symptoms. Pulmonary saw pt and started pt on a short course of medrol w/ inhaled bronchodilators/dounebs. Pt symptoms improved significantly , therefore steroids were switched to Prednisone 40mg PO and Augmentin PO 500 mg. Pt however failed pre and post and was sent to [place] on oxygen. Pt was also sent to [place] on Prednisone 40mg for 3 more days to complete 5-6 days total and Augmentin 500 mg for 1 more day. Ekg: sinus tachycardia at 114. no elvin or depressions, no electrical alternans flu A positive CT chest reveals no acute intracranial pathology. Cardiomegaly CT abdomen pelvis reveals no intraabdominal pathology. Fecal impaction noted. ECHO: EF 67%, mild TR, normal findings Jevity tube feeds; initiated at lowest rate, to titrate accordingly. Date of Discharge: 08/02/19 Minutes to complete discharge: 40 Discharge Summary Problems reviewed: Yes Reason For Visit: INFLUENZA DUE TO INFLUENZA VIRUS, [employer]PER[employer] A HUMAN Condition: Improved - Instructions Diet, Activity, Other Instructions: You were admitted to the hospital with respiratory symptoms and found to have Flu. While in the hospital, we evaluated you with lab work, blood work, imaging including x rays of your chest and CAT scan of your abdomen. We treated you with medications and your symptoms improved significantly. To further complete your treatment, please take the following medications: Prednisone 40mg daily for 3 more days starting tomorrow, which includes the 07/27 , 07/28, 07/29. You can take your last dose on the 07/29 and stop the medication. Augmentin 500 three times a day for 1 more day. Your last dose will be tomorrow on the 07/27. Please continue oxygen therapy on discharge until follow up next week with your primary care doctor for oxygen saturation check. Continue all your other medications as prescribed Follow up with your primary care physician within 1 week. Please return to the emergency room, if you experience worsening of your symptoms, new symptoms, breathing issues, chest pain or any other worsening of your condition. Disposition: RESIDENTIAL FACILITY - Home Medications Comprehensive Discharge Medication List: Ambulatory Orders Albuterol 0.083% Nebulizer Michelle [Ventolin 0.083% Nebulizer Soln -] 1 neb NEB Q6H PRN 07/20/19 Amlodipine Besylate 5 mg GT DAILY 07/20/19 Bisacodyl [Bisacodyl -] 10 mg PO ASDIR 07/20/19 Budesonide [Pulmicort 0.5 mg Nebulizer -] 1 neb NEB DAILY 07/20/19 Calcium Carbonate/Vitamin D3 [Oystercal-D 500 mg-400 Unit Tb] 1 tab GT HS Calcium Carbonate/Vitamin D3 [Oystercal-D 500 mg-400 Unit Tb] 2 tab GT DAILY 04/29 Cholecalciferol (Vitamin D3) [Vitamin D3 -] 1,000 unit GT DAILY 07/20/19 Ferrous Sulfate 220 mg GT HS 07/20/19 Fexofenadine HCl 60 mg PO BID 07/20/19 Folic Acid 1 mg GT HS 07/20/19 Hydrochlorothiazide 25 mg GT HS 07/20/19 Lamotrigine 100 mg GT TID 07/20/19 Magnesium Hydroxide [Milk of Magnesia] 15 ml GT BID 07/20/19 Methylcellulose [Citrucel] 1,000 mg GT HS 07/20/19 Metoprolol Tartrate 75 mg GT BID 07/20/19 Multivitamin [Multiple Vitamins] 1 each GT DAILY 07/20/19 Polyethylene Glycol 3350 [Glycolax] 119 gm GT HS 07/20/19 Sennosides [Senna -] 2 tab PO HS 07/20/19 Levetiracetam 1,000 mg GT BID 07/21/19 Amoxicillin/Potassium Clav [Augmentin 500-125 Tablet] 500 each PO TID 1 Days tablet 07/26/19 Famotidine 2 tab GT HS 07/26/19 predniSONE [Deltasone -] 40 mg PO DAILY 3 Days tablet 07/26/19 This patient is new to me today: Yes Date on this admission: 08/02/19 Emergency Visit: Yes ED Registration Date: 07/20/19 Care time: The patient presented to the Emergency Department on the above date and was hospitalized for further evaluation of their emergent condition. Critical Care patient: No - Discharge Referral Referred to [facility] No ATTENDING PHYSICIAN STATEMENT I saw and evaluated the patient. I reviewed the resident's note and discussed the case with the resident. I agree with the resident's findings and plan as documented. SUBJECTIVE: OBJECTIVE: ASSESSMENT AND PLAN:
== END 2019-07-26 15:03 | DRG 720 ==
LOC: JER 14:54 → JERBED 17:33 → J4W 23:43
PROVIDERS: ADMIT Internal Medicine
DX: A41.89 Other specified sepsis (principal); G80.8 Other cerebral palsy; F72 Severe intellectual disabilities; G40.909 Epilepsy, unspecified, not intractable, without status epilepticus; Q67.5 Congenital deformity of spine; G91.1 Obstructive hydrocephalus; I10 Essential (primary) hypertension; R50.9 Fever, unspecified; R00.0 Tachycardia, unspecified; K80.20 Calculus of gallbladder without cholecystitis without obstruction; R53.2 Functional quadriplegia; J18.9 Pneumonia, unspecified organism; J96.01 Acute respiratory failure with hypoxia; K56.7 Ileus, unspecified; K56.41 Fecal impaction; J98.01 Acute bronchospasm; J32.4 Chronic pansinusitis; J10.00 Influenza due to other identified influenza virus with unspecified type of pneumonia; J45.901 Unspecified asthma with (acute) exacerbation
CPT/HCPCS: 36415; 70450-TC; 71045-TC-FY; 71250-TC; 72192-TC; 74018-TC-FY; 74176-TC; 80053; 80175; 80177; 81003; 82803; 82962; 83605; 83735; 84100; 84484; 85025; 85027; 85610; 85730; 87040; 87086; 87804; 93005; 93010; 93306-TC; 94640; 94761; 99285-25; J0131

== ENCOUNTER 2019-08-04 13:20 | Emergency (ER) | payer OTHER ==
--- NOTE | 2019-08-04 13:46 | PDOC ---
Documentation entered by Juan Braden SCRIBE, acting as scribe for Prisca Stahl DO. Prisca Stahl DO: This documentation has been prepared by the Asiya venegas Nirvannie, SCRIBE, under my direction and personally reviewed by me in its entirety. I confirm that the documentation accurately reflects all work, treatment, procedures, and medical decision making performed by me. Attending Attestation - Resident Resident Name: Bayron Antony - ED Attending Attestation I have performed the following: I have examined & evaluated the patient, The case was reviewed & discussed with the resident, I agree w/resident's findings & plan, Exceptions are as noted - HPI HPI: 08/04/19 13:48 The patient is a 38 year old male, with a significant past medical history of congenital quadriplegia, epilepsy, MR, s/p G-tube, who presents to the emergency department from [facility] with cracked rafal feeding tube. As per aid, patients feeding tube was cracked and they were unable to change it at the facility secondary to it being clogged. History is limited secondary to patients MR. Allergies: NKDA Primary Care Physician: Dr. Sean Huang - Physicial Exam PE: 08/04/19 13:48 Constitutional: Awake, alert, oriented. No acute distress. Head: Normocephalic. Atraumatic Eyes: PERRL. EOMI. Conjunctivae are not pale. ENT: Mucous membranes are moist and intact. Posterior pharynx without exudates or erythema. Uvula midline. Neck: Supple. Full ROM. No lymphadenopathy. Cardiovascular: Regular rate. Regular rhythm. S1, S2 regular. Distal pulses are 2+ and symmetric. Pulmonary/Chest: No evidence of respiratory distress. Clear to auscultation bilaterally No wheezing, rales or rhonchi. Abdominal: +Rafal tube cracked at the neck. Soft and non-distended. There is no tenderness. No rebound, guarding or rigidity. No organomegaly. No palpable masses. Good bowel sounds. Back: No CVA tenderness. Musculoskeletal: No edema. No cyanosis. No clubbing. Full range of motion in all extremities. No calf tenderness. Radial/pedal pulses are intact and 2+ bilaterally Skin: Skin is warm and dry. No petechiae. No purpura. Neurological: Alert and oriented to person, place, and time. Cranial nerves II -XII are grossly intact. Normal speech. Strength is grossly symmetric. No sensory deficits. Psychiatric: Good eye contact. Normal interaction, affect and behavior. - Medical Decision Making 08/04/19 13:44 38yo male sent for Rafal peg tube replacement -decompressed the balloon with a needle under ultrasound guidance -rafal tube removed and replaced -pt sent to xray for placement -pt tolerated the procedure well 08/04/19 14:01 xray reviewed and rafal tube in place pending official xray read 08/04/19 14:43 xray shows rafal tube in place pt stable for dc back to facility Discharge - Discharge Information Problems reviewed: Yes Clinical Impression/Diagnosis: PEG tube malfunction Condition: Stable Disposition: HOME - Admission No - Follow up/Referral Referrals: Sean Huang Jr [Primary Care Provider] - - Patient Discharge Instructions Patient Printed Discharge Instructions: How to Care for Your PEG Tube Additional Instructions: Today you were evaluated for a broken PEG tube. Your PEG tube was replaced, and X-ray confirms that it is in the correct place. Please continue to use the PEG as usual. Please follow-up with your primary doctor in the next week for further follow-up. If your experience any abdominal pain, fever/chills, are not tolerating feeds, or have any other new or concerning symptoms, please return to the emergency room. - Post Discharge Activity
--- NOTE | 2019-08-04 14:05 | PDOC ---
History of Present Illness - General Stated Complaint: GI TUBE REPLACEMENT Time Seen by Provider: 08/04/19 13:29 - History of Present Illness Initial Comments: 08/04/19 13:58 Dilan Castellano is a 38M with G-tube in place sent from [place] for G-tube replacement. Per aide at bedside and records sent with patient, there is a tear in the [place]- [place] 20F G-tube preventing deflation of the balloon so that it cannot be replaced , sent to [facility] ED for G tube replacement. Past History - Past Medical History Allergies/Adverse Reactions: Allergies Allergy/AdvReac Type Severity Reaction Status Date / Time No Known Allergies Allergy Verified 07/20/19 17:02 Home Medications: Ambulatory Orders Albuterol 0.083% Nebulizer Michelle [Ventolin 0.083% Nebulizer Soln -] 1 neb NEB Q6H PRN 07/20/19 Amlodipine Besylate 5 mg GT DAILY 07/20/19 Bisacodyl [Bisacodyl -] 10 mg PO ASDIR 07/20/19 Budesonide [Pulmicort 0.5 mg Nebulizer -] 1 neb NEB DAILY 07/20/19 Calcium Carbonate/Vitamin D3 [Oystercal-D 500 mg-400 Unit Tb] 1 tab GT HS Calcium Carbonate/Vitamin D3 [Oystercal-D 500 mg-400 Unit Tb] 2 tab GT DAILY 04/29 Cholecalciferol (Vitamin D3) [Vitamin D3 -] 1,000 unit GT DAILY 07/20/19 Ferrous Sulfate 220 mg GT HS 07/20/19 Fexofenadine HCl 60 mg PO BID 07/20/19 Folic Acid 1 mg GT HS 07/20/19 Hydrochlorothiazide 25 mg GT HS 07/20/19 Lamotrigine 100 mg GT TID 07/20/19 Magnesium Hydroxide [Milk of Magnesia] 15 ml GT BID 07/20/19 Methylcellulose [Citrucel] 1,000 mg GT HS 07/20/19 Metoprolol Tartrate 75 mg GT BID 07/20/19 Multivitamin [Multiple Vitamins] 1 each GT DAILY 07/20/19 Polyethylene Glycol 3350 [Glycolax] 119 gm GT HS 07/20/19 Sennosides [Senna -] 2 tab PO HS 07/20/19 Levetiracetam 1,000 mg GT BID 07/21/19 Amoxicillin/Potassium Clav [Augmentin 500-125 Tablet] 500 each PO TID 1 Days tablet 07/26/19 Famotidine 2 tab GT HS 07/26/19 predniSONE [Deltasone -] 40 mg PO DAILY 3 Days tablet 07/26/19 Anemia: No Asthma: Yes Cancer: No Cardiac Disorders: No CVA: No COPD: No CHF: No Dementia: No Diabetes: No GI Disorders: No Disorders: No HTN: Yes Hypercholesterolemia: No Liver Disease: No Seizures: Yes Thyroid Disease: No - Surgical History Abdominal Surgery: No Appendectomy: No Cardiac Surgery: No Cholecystectomy: No GI Surgery: Yes (peg) Lung Surgery: No Neurologic Surgery: No Orthopedic Surgery: Yes (metal devices in right hip) - Immunization History Immunization Up to Date: Yes - Psycho Social/Smoking Cessation Hx Smoking History: Unknown if ever smoked Have you smoked in the past 12 months: No Hx Alcohol Use: No Drug/Substance Use Hx: No Substance Use Type: None Hx Substance Use Treatment: No Review of Systems - Review of Systems Able to Perform ROS?: No (non-verbal) *Physical Exam - Physical Exam General Appearance: Yes: Nourished, Appropriately Dressed, Mild Distress HEENT: positive: EOMI, MICHELLE, Normal Voice, Symmetrical, Pharynx Normal, Hearing Grossly Normal. negative: Scleral Icterus (R), Scleral Icterus (L) Neck: positive: Trachea midline, Normal Thyroid, Supple. negative: Tender, Rigid, Lymphadenopathy (R), Lymphadenopathy (L), Tender lateral, Tender midline Respiratory/Chest: positive: Lungs Clear, Normal Breath Sounds. negative: Chest Tender, Respiratory Distress, Accessory Muscle Use, Crackles, Rales, Rhonchi, Stridor, Wheezing Cardiovascular: positive: Regular Rhythm, Regular Rate. negative: Murmur Gastrointestinal/Abdominal: positive: Normal Bowel Sounds, Flat, Soft, Other ( PEG in place in RLQ with obvious tear, unable to be deflated). negative: Tender , Organomegaly, Guarding, Rebound Musculoskeletal: positive: Normal Inspection. negative: CVA Tenderness Extremity: positive: Normal Capillary Refill. negative: Normal Range of Motion (contracted all limbs), Tender Integumentary: positive: Normal Color, Dry, Warm Neurologic: positive: Alert, Normal Response Medical Decision Making - Medical Decision Making 08/04/19 14:03 Patient presents with damaged PEG that is unable to be deflated to be replaced. Attempted to deflate tube here with side port, unable to do so. With 18G needle under US guidance, aspirated balloon fluid, PEG removed. Replaced with new PEG and filled with 10cc new water per instructions in PEG set. - XR abd with Omnipaque injection into PEG to evaluate proper placement 08/04/19 16:01 XR shows appropriate stomach placement. Stable to be discharged home with PMD f/u. Discharge - Discharge Information Problems reviewed: Yes Clinical Impression/Diagnosis: PEG tube malfunction Condition: Stable Disposition: HOME - Admission No - Follow up/Referral Referrals: Sean Huang Jr [Primary Care Provider] - - Patient Discharge Instructions Patient Printed Discharge Instructions: How to Care for Your PEG Tube Additional Instructions: Today you were evaluated for a broken PEG tube. Your PEG tube was replaced, and X-ray confirms that it is in the correct place. Please continue to use the PEG as usual. Please follow-up with your primary doctor in the next week for further follow-up. If your experience any abdominal pain, fever/chills, are not tolerating feeds, or have any other new or concerning symptoms, please return to the emergency room. - Post Discharge Activity
[2019-08-04 14:12] VITALS: TEMP 98; BMI 20.9
[2019-08-04 14:55] VITALS: BP 121/87; PULSE 76
== END 2019-08-04 14:54 ==
LOC: JER 13:20
PROC: 0DP67UZ Removal of Feeding Device from Stomach, Via Natural or Artificial Opening (ICD-10-PCS; principal; 2019-08-04)
PROC: 0DH67UZ Insertion of Feeding Device into Stomach, Via Natural or Artificial Opening (ICD-10-PCS; 2019-08-04)
DX: K94.23 Gastrostomy malfunction (principal)
CPT/HCPCS: 43762; 74018-TC-FY; 99282-25

== ENCOUNTER 2021-04-18 06:46 | Inpatient (IN) | payer OTHER ==
[2021-04-18] MEDS ORDERED: SODIUM CHLORIDE 1,769 ML IV ONE (07:28)
[2021-04-18] MEDS ORDERED: PIPERACILLIN/TAZOB 4.5 GM 4.5 GM in DEXTROSE 5%-WATER 100 ML IVPB ONE (07:30)
[2021-04-18] MEDS ORDERED: VANCOMYCIN 1 GM in D5W (PRE-DOCKED) 1,000 MG/250 ML IVPB ONE (07:30)
[2021-04-18] MEDS ORDERED: VANCOMYCIN 1 GRAM (PRE-DOCKED) 1,000 MG/250 ML BAG IVPB ONE (07:33)
[2021-04-18] MEDS ORDERED: PIPERACILLIN/TAZOB 4.5 GM 4.5 GM/100 ML BAG IVPB ONE (07:33)
[2021-04-18] MEDS ORDERED: ALBUTEROL SO4 2.5/IPRATROPIUM 0.5 INH SOL 3 ML VIAL.NEB. NEB ONE ×2 (08:22→11:56)
[2021-04-18] MEDS: ALBUTEROL SO4 2.5/IPRATROPIUM 0.5 INH SOL 3 ML VIAL.NEB. NEB SCH ×5 (08:28→20:26)
[2021-04-18 08:47] LABS: PH,URINE >= 9.0 (5.0-8.0); URINE APPEARANCE CLOUDY; URINE BILIRUBIN NEGATIVE (NEGATIVE); URINE COLOR YELLOW; URINE GLUCOSE (UA) NEGATIVE (NEGATIVE); URINE KETONE NEGATIVE (NEGATIVE); URINE LEUK ESTERASE NEGATIVE (NEGATIVE); URINE NITRITE NEGATIVE (NEGATIVE); URINE PROTEIN NEGATIVE (NEGATIVE); URINE UROBILINOGEN 0.2 mg/dL (0.2-1.0)
[2021-04-18 09:43] LABS: BASO % 0.1 % (0-2.0); EOS % 2.6 % (0-4.5); HEMATOCRIT 47.6 % (35.4-49); HEMOGLOBIN 16.2 GM/dL (11.7-16.9); LYMPH % 4.2 % (8-40); MCHC 34.1 g/dl (32.0-35.9); MEAN CELL VOLUME 85.2 fl (80-96); MEAN PLT VOLUME 9.2 fl (7.5-11.1); MONO % 6.1 % (3.8-10.2); PLATELET COUNT 190 10^3/uL (134-434); RBC 5.59 M/mm3 (4.00-5.60); RDW 14.6 % (11.9-15.9); WHITE BLOOD COUNT 10.4 K/mm3 (4.0-10.0)
[2021-04-18 09:51] LABS: INR 1.31 (0.83-1.09); PROTHROMBIN TIME (PATIENT) 15.9 SEC (9.7-13.0)
[2021-04-18 09:54] LABS: ACTIVATED PTT 40.3 SECONDS (25.2-36.5)
[2021-04-18 10:02] LABS: CALCIUM 9.2 mg/dL (8.5-10.1)
[2021-04-18 10:03] LABS: ALBUMIN 4.1 g/dl (3.4-5.0)
[2021-04-18 10:06] LABS: CREATININE 0.6 mg/dL (0.55-1.3)
[2021-04-18 10:08] LABS: BILIRUBIN,TOTAL 0.7 mg/dL (0.2-1); TOT PROT 8.8 g/dl (6.4-8.2)
[2021-04-18] MEDS ORDERED: LORazepam 2 MG/ML SDV VIAL IVPUSH PRN (15:45)
[2021-04-18] MEDS ORDERED: ALBUTEROL SO4 0.083% IH SOL 2.5 MG/3 ML VIAL.NEB. NEB PRN (16:33)
[2021-04-18] MEDS: PIPERACILLIN/TAZOB 3.375 GM 3.375 GM in DEXTROSE 5%-WATER - 50 ML IVPB SCH ×2 (18:00→19:05)
[2021-04-18] MEDS ORDERED: DEXTROSE 5%-WATER - 50 ML IVPB ONE (18:56)
[2021-04-18] MEDS ORDERED: PIPERACILLIN/TAZOBACTAM 3.375 GM VIAL IVPB ONE (18:56)
[2021-04-18] MEDS: LACTATED RINGERS SOLUTION 1,000 ML IV SCH (19:05)
[2021-04-18] MEDS: MAGNESIUM HYDROX 2400MG/30ML ORAL SUSPENSION 30 ML CUP GT SCH (22:00)
[2021-04-18] MEDS ORDERED: METHYLCELLULOSE 500 MG GT SCH (22:00)
[2021-04-18] MEDS: levETIRAcetam 500 MG/5 ML ORAL SOLUTION (UNIT-DOSE CUPS) GT SCH (22:00)
[2021-04-18] MEDS: CALCIUM 500MG/VIT-D 200 UNITS COMBO TABLET (FP) GT SCH (22:00)
[2021-04-18] MEDS: FOLIC ACID 1 MG TABLET (FP) GT SCH (22:01)
[2021-04-18] MEDS: FAMOTIDINE 40 MG/5 ML ORAL SUSPENSION PEG SCH (22:01)
[2021-04-18] MEDS: FERROUS SULFATE 220 MG/5 ML ELIXIR GT SCH (22:01)
[2021-04-18] MEDS: lamoTRIgine 100 MG TABLET GT SCH (22:02)
[2021-04-19] MEDS: ALBUTEROL SO4 2.5/IPRATROPIUM 0.5 INH SOL 3 ML VIAL.NEB. NEB SCH ×6 (00:10→21:00)
[2021-04-19] MEDS ORDERED: VANCOMYCIN 1 GM in D5W (PRE-DOCKED) 1,000 MG/250 ML IVPB ONE (01:00)
[2021-04-19] MEDS ORDERED: PIPERACILLIN/TAZOBACTAM 3.375 GM VIAL IVPB ONE ×3 (01:55→18:24)
[2021-04-19] MEDS ORDERED: DEXTROSE 5%-WATER - 50 ML IVPB ONE ×3 (01:56→18:24)
[2021-04-19] MEDS: PIPERACILLIN/TAZOB 3.375 GM 3.375 GM in DEXTROSE 5%-WATER - 50 ML IVPB SCH ×5 (02:23→19:40)
[2021-04-19] MEDS: lamoTRIgine 100 MG TABLET GT SCH ×3 (06:26→21:33)
[2021-04-19] MEDS ORDERED: BUDESONIDE 0.5 MG/2 ML INH SUSP VIAL NEB SCH (10:00)
[2021-04-19] MEDS ORDERED: PATIENT'S OWN MEDICATION (NON-FORMULARY) (Calcium Carbonate/Vitamin D3 [Oystercal-D 500 Mg GT SCH (10:00)
[2021-04-19 10:49] LABS: BASO % 0.1 % (0-2.0); EOS % 5.8 % (0-4.5); HEMATOCRIT 46.8 % (35.4-49); HEMOGLOBIN 15.9 GM/dL (11.7-16.9); LYMPH % 7.4 % (8-40); MCHC 33.9 g/dl (32.0-35.9); MEAN CELL VOLUME 85.5 fl (80-96); MEAN PLT VOLUME 8.9 fl (7.5-11.1); MONO % 10.6 % (3.8-10.2); NEUT % 76.1 % (42.8-82.8); PLATELET COUNT 195 10^3/uL (134-434); RBC 5.48 M/mm3 (4.00-5.60)
[2021-04-19 10:51] LABS: INR 1.14 (0.83-1.09); PROTHROMBIN TIME (PATIENT) 13.8 SEC (9.7-13.0)
[2021-04-19] MEDS: MAGNESIUM HYDROX 2400MG/30ML ORAL SUSPENSION 30 ML CUP GT SCH ×2 (10:54→21:36)
[2021-04-19] MEDS: LORATADINE 10 MG TABLET GT SCH (10:54)
[2021-04-19] MEDS: levETIRAcetam 500 MG/5 ML ORAL SOLUTION (UNIT-DOSE CUPS) GT SCH ×2 (10:54→21:33)
[2021-04-19] MEDS: CHOLECALCIFEROL (VIT D3) 1,000 UNIT (25 MCG) TABLET GT SCH (10:54)
[2021-04-19] MEDS: ENOXAPARIN NA (PORCINE) 40 MG/0.4 ML DISP.SYRIN SQ SCH (10:54)
[2021-04-19] MEDS: CALCIUM 500MG/VIT-D 200 UNITS COMBO TABLET (FP) GT SCH ×2 (10:54→21:32)
[2021-04-19 11:17] LABS: ALBUMIN 3.9 g/dl (3.4-5.0); BLOOD UREA NITROGEN 5.4 mg/dL (7-18); CALCIUM 9.1 mg/dL (8.5-10.1)
[2021-04-19 11:18] LABS: MAGNESIUM 2.2 mg/dL (1.8-2.4)
[2021-04-19 11:20] LABS: CREATININE 0.6 mg/dL (0.55-1.3); PHOSPHOROUS 1.7 mg/dL (2.5-4.9)
[2021-04-19 11:22] LABS: BILIRUBIN,TOTAL 0.5 mg/dL (0.2-1); TOT PROT 8.6 g/dl (6.4-8.2)
[2021-04-19] MEDS: amLODIPine BESYLATE 5 MG TABLET (FP) GT SCH (11:39)
[2021-04-19] MEDS: METOPROLOL TARTRATE 50 MG TABLET (FP) PEG SCH ×2 (11:39→21:32)
[2021-04-19] MEDS: LACTATED RINGERS SOLUTION 1,000 ML IV SCH ×2 (11:46→14:29)
[2021-04-19] MEDS ORDERED: diazePAM 5 MG TABLET PEG PRN (14:25)
[2021-04-19] MEDS ORDERED: PT OWN MED DRAWER 7, Y5N ONE ×2 (14:26→15:21)
[2021-04-19 15:04] VITALS: BMI 18.7
[2021-04-19] MEDS: BISACODYL 10 MG SUPP.RECT RC SCH (15:21)
[2021-04-19 17:57] LABS: BASO % 0.2 % (0-2.0); EOS % 5.6 % (0-4.5); HEMATOCRIT 44.1 % (35.4-49); HEMOGLOBIN 14.6 GM/dL (11.7-16.9); LYMPH % 12.5 % (8-40); MCH 28.6 pg (25.7-33.7); MCHC 33.2 g/dl (32.0-35.9); MEAN CELL VOLUME 86.2 fl (80-96); MEAN PLT VOLUME 8.7 fl (7.5-11.1); MONO % 13.7 % (3.8-10.2); PLATELET COUNT 183 10^3/uL (134-434); RBC 5.11 M/mm3 (4.00-5.60); RDW 14.8 % (11.9-15.9); WHITE BLOOD COUNT 5.4 K/mm3 (4.0-10.0)
[2021-04-19 18:19] LABS: ALBUMIN 3.4 g/dl (3.4-5.0); CALCIUM 8.7 mg/dL (8.5-10.1)
[2021-04-19 18:20] LABS: BLOOD UREA NITROGEN 7.2 mg/dL (7-18); MAGNESIUM 2.2 mg/dL (1.8-2.4)
[2021-04-19 18:23] LABS: CREATININE 0.5 mg/dL (0.55-1.3)
[2021-04-19 18:24] LABS: BILIRUBIN,TOTAL 0.4 mg/dL (0.2-1)
[2021-04-19 18:25] LABS: TOT PROT 7.6 g/dl (6.4-8.2)
[2021-04-19] MEDS: AMINO ACIDS/PROTEIN HYDROLYS 30 ML LIQUID.PKT PO SCH (18:26)
[2021-04-19 18:31] LABS: PHOSPHOROUS 2.8 mg/dL (2.5-4.9)
[2021-04-19] MEDS: BUDESONIDE 0.5 MG/2 ML INH SUSP VIAL NEB SCH (21:02)
[2021-04-19] MEDS: FAMOTIDINE 40 MG/5 ML ORAL SUSPENSION PEG SCH (21:31)
[2021-04-19] MEDS: FERROUS SULFATE 220 MG/5 ML ELIXIR GT SCH (21:32)
[2021-04-19] MEDS: cloBAZam 10 MG TABLET PO SCH (21:33)
[2021-04-19] MEDS: FOLIC ACID 1 MG TABLET (FP) GT SCH (21:34)
[2021-04-20] MEDS: ALBUTEROL SO4 2.5/IPRATROPIUM 0.5 INH SOL 3 ML VIAL.NEB. NEB SCH ×7 (00:05→20:05)
[2021-04-20] MEDS ORDERED: PIPERACILLIN/TAZOBACTAM 3.375 GM VIAL IVPB ONE ×3 (01:13→17:36)
[2021-04-20] MEDS ORDERED: DEXTROSE 5%-WATER - 50 ML IVPB ONE ×3 (01:13→17:37)
[2021-04-20] MEDS: PIPERACILLIN/TAZOB 3.375 GM 3.375 GM in DEXTROSE 5%-WATER - 50 ML IVPB SCH ×3 (01:20→17:50)
[2021-04-20] MEDS: LAMOTRIGINE GT SCH (06:34)
[2021-04-20] MEDS ORDERED: lamoTRIgine 100 MG TABLET NR SCH (07:00)
[2021-04-20] MEDS ORDERED: lamoTRIgine 25 MG TABLET NR SCH (07:00)
[2021-04-20] MEDS: AMINO ACIDS/PROTEIN HYDROLYS 30 ML LIQUID.PKT PO SCH (08:02)
[2021-04-20] MEDS: BUDESONIDE 0.5 MG/2 ML INH SUSP VIAL NEB SCH ×2 (09:43→20:26)
[2021-04-20] MEDS: ENOXAPARIN NA (PORCINE) 40 MG/0.4 ML DISP.SYRIN SQ SCH (10:53)
[2021-04-20] MEDS: levETIRAcetam 500 MG/5 ML ORAL SOLUTION (UNIT-DOSE CUPS) GT SCH ×2 (10:59→23:16)
[2021-04-20] MEDS: CALCIUM 500MG/VIT-D 200 UNITS COMBO TABLET (FP) GT SCH (11:00)
[2021-04-20] MEDS: METOPROLOL TARTRATE 50 MG TABLET (FP) PEG SCH (11:00)
[2021-04-20] MEDS: BISACODYL 10 MG SUPP.RECT RC SCH (11:00)
[2021-04-20] MEDS: CHOLECALCIFEROL (VIT D3) 1,000 UNIT (25 MCG) TABLET GT SCH (11:01)
[2021-04-20] MEDS: LORATADINE 10 MG TABLET GT SCH (11:01)
[2021-04-20] MEDS: amLODIPine BESYLATE 5 MG TABLET (FP) GT SCH (11:01)
[2021-04-20] MEDS: cloBAZam 10 MG TABLET PO SCH (11:01)
[2021-04-20] MEDS: MAGNESIUM HYDROX 2400MG/30ML ORAL SUSPENSION 30 ML CUP GT SCH ×2 (11:02→23:18)
[2021-04-20] MEDS: POTASSIUM CHLORIDE ORAL LIQUID 20 MEQ/15 ML GT SCH (11:02)
[2021-04-20] MEDS: lamoTRIgine 100 MG TABLET GT SCH ×2 (14:25→23:17)
[2021-04-20] MEDS ORDERED: PT OWN MED DRAWER 7, Y5N ONE ×3 (14:46→23:09)
[2021-04-20] MEDS: FAMOTIDINE 40 MG/5 ML ORAL SUSPENSION PEG SCH (23:15)
[2021-04-20] MEDS: FERROUS SULFATE 220 MG/5 ML ELIXIR GT SCH (23:15)
[2021-04-20] MEDS: FOLIC ACID 1 MG TABLET (FP) GT SCH (23:16)
[2021-04-21] MEDS: cloBAZam 10 MG TABLET PO SCH ×3 (00:42→23:23)
[2021-04-21] MEDS: CALCIUM 500MG/VIT-D 200 UNITS COMBO TABLET (FP) GT SCH ×3 (00:42→23:23)
[2021-04-21] MEDS: METOPROLOL TARTRATE 50 MG TABLET (FP) PEG SCH ×3 (00:42→23:23)
[2021-04-21] MEDS: POTASSIUM CHLORIDE ORAL LIQUID 20 MEQ/15 ML GT SCH ×2 (00:46→09:43)
[2021-04-21] MEDS ORDERED: DEXTROSE 5%-WATER - 50 ML IVPB ONE ×3 (02:59→18:13)
[2021-04-21] MEDS ORDERED: PIPERACILLIN/TAZOBACTAM 3.375 GM VIAL IVPB ONE ×3 (02:59→18:13)
[2021-04-21] MEDS: PIPERACILLIN/TAZOB 3.375 GM 3.375 GM in DEXTROSE 5%-WATER - 50 ML IVPB SCH ×3 (03:01→18:20)
[2021-04-21] MEDS: ALBUTEROL SO4 2.5/IPRATROPIUM 0.5 INH SOL 3 ML VIAL.NEB. NEB SCH ×6 (03:44→23:07)
[2021-04-21] MEDS ORDERED: PT OWN MED DRAWER 7, Y5N ONE ×4 (06:54→23:14)
[2021-04-21] MEDS: LAMOTRIGINE GT SCH (06:55)
[2021-04-21] MEDS: BUDESONIDE 0.5 MG/2 ML INH SUSP VIAL NEB SCH ×2 (07:56→20:23)
[2021-04-21] MEDS: AMINO ACIDS/PROTEIN HYDROLYS 30 ML LIQUID.PKT PO SCH (09:43)
[2021-04-21] MEDS: ENOXAPARIN NA (PORCINE) 40 MG/0.4 ML DISP.SYRIN SQ SCH (09:43)
[2021-04-21] MEDS: MAGNESIUM HYDROX 2400MG/30ML ORAL SUSPENSION 30 ML CUP GT SCH ×2 (09:44→23:05)
[2021-04-21] MEDS: levETIRAcetam 500 MG/5 ML ORAL SOLUTION (UNIT-DOSE CUPS) GT SCH ×2 (09:44→23:05)
[2021-04-21] MEDS: LORATADINE 10 MG TABLET GT SCH (09:45)
[2021-04-21] MEDS: CHOLECALCIFEROL (VIT D3) 1,000 UNIT (25 MCG) TABLET GT SCH (09:45)
[2021-04-21] MEDS: amLODIPine BESYLATE 5 MG TABLET (FP) GT SCH (09:47)
[2021-04-21] MEDS: lamoTRIgine 100 MG TABLET GT SCH ×2 (16:15→23:27)
[2021-04-21 18:48] LABS: ARTERIAL BLD GAS O2 SATURATION 89.6 % (95-98); ARTERIAL BLOOD GAS BASE EXCESS 3.8 mmol/L (-2-2); ARTERIAL BLOOD GAS PO2 57.7 mmHg (80-100); ARTERIAL BLOOD GAS pH 7.395 (7.350-7.450)
[2021-04-21] MEDS: FERROUS SULFATE 220 MG/5 ML ELIXIR GT SCH (23:05)
[2021-04-21] MEDS: FOLIC ACID 1 MG TABLET (FP) GT SCH (23:23)
[2021-04-21] MEDS: FAMOTIDINE 40 MG/5 ML ORAL SUSPENSION PEG SCH (23:30)
[2021-04-22] MEDS ORDERED: DEXTROSE 5%-WATER - 50 ML IVPB ONE ×3 (01:50→16:52)
[2021-04-22] MEDS ORDERED: PIPERACILLIN/TAZOBACTAM 3.375 GM VIAL IVPB ONE ×3 (01:50→16:51)
[2021-04-22] MEDS: PIPERACILLIN/TAZOB 3.375 GM 3.375 GM in DEXTROSE 5%-WATER - 50 ML IVPB SCH ×3 (02:01→17:36)
[2021-04-22] MEDS: ALBUTEROL SO4 2.5/IPRATROPIUM 0.5 INH SOL 3 ML VIAL.NEB. NEB SCH ×5 (03:07→20:13)
[2021-04-22] MEDS ORDERED: PT OWN MED DRAWER 7, Y5N ONE ×2 (06:59→21:04)
[2021-04-22] MEDS: LAMOTRIGINE GT SCH (07:00)
[2021-04-22] MEDS: BUDESONIDE 0.5 MG/2 ML INH SUSP VIAL NEB SCH ×2 (07:27→20:13)
[2021-04-22 10:18] LABS: BASO % 0.2 % (0-2.0); EOS % 6.3 % (0-4.5); HEMATOCRIT 40.4 % (35.4-49); HEMOGLOBIN 13.4 GM/dL (11.7-16.9); LYMPH % 25.8 % (8-40); MCH 28.6 pg (25.7-33.7); MEAN CELL VOLUME 86.5 fl (80-96); MONO % 14.3 % (3.8-10.2); NEUT % 53.4 % (42.8-82.8); PLATELET COUNT 184 10^3/uL (134-434); RBC 4.67 M/mm3 (4.00-5.60); RDW 14.2 % (11.9-15.9); WHITE BLOOD COUNT 4.7 K/mm3 (4.0-10.0)
[2021-04-22 10:34] LABS: ALBUMIN 3.2 g/dl (3.4-5.0); CALCIUM 8.5 mg/dL (8.5-10.1); MAGNESIUM 2.1 mg/dL (1.8-2.4)
[2021-04-22 10:37] LABS: BILIRUBIN,TOTAL 0.6 mg/dL (0.2-1); CREATININE 0.5 mg/dL (0.55-1.3)
[2021-04-22 10:38] LABS: TOT PROT 7.2 g/dl (6.4-8.2)
[2021-04-22] MEDS: CHOLECALCIFEROL (VIT D3) 1,000 UNIT (25 MCG) TABLET GT SCH (10:45)
[2021-04-22] MEDS: SENNOSIDES 8.6MG TABLET (FP) PO SCH (10:47)
[2021-04-22] MEDS: LORATADINE 10 MG TABLET GT SCH (10:47)
[2021-04-22] MEDS: CALCIUM 500MG/VIT-D 200 UNITS COMBO TABLET (FP) GT SCH ×2 (10:48→21:32)
[2021-04-22] MEDS: METOPROLOL TARTRATE 50 MG TABLET (FP) PEG SCH ×2 (10:48→21:33)
[2021-04-22] MEDS: cloBAZam 10 MG TABLET PO SCH ×2 (10:48→21:32)
[2021-04-22] MEDS: MAGNESIUM HYDROX 2400MG/30ML ORAL SUSPENSION 30 ML CUP GT SCH ×2 (10:50→21:32)
[2021-04-22] MEDS: levETIRAcetam 500 MG/5 ML ORAL SOLUTION (UNIT-DOSE CUPS) GT SCH ×2 (10:50→21:34)
[2021-04-22] MEDS: POLYETHYLENE GLYCOL (HEALTHYLAX) 3350 17 GM PACKET PO SCH (10:50)
[2021-04-22] MEDS: AMINO ACIDS/PROTEIN HYDROLYS 30 ML LIQUID.PKT PO SCH (10:50)
[2021-04-22] MEDS: amLODIPine BESYLATE 5 MG TABLET (FP) GT SCH (10:50)
[2021-04-22] MEDS: ENOXAPARIN NA (PORCINE) 40 MG/0.4 ML DISP.SYRIN SQ SCH (10:51)
[2021-04-22] MEDS: lamoTRIgine 100 MG TABLET GT SCH ×2 (15:48→21:33)
[2021-04-22] MEDS ORDERED: BISACODYL 10 MG SUPP.RECT PR ONE (17:40)
[2021-04-22] MEDS: FAMOTIDINE 40 MG/5 ML ORAL SUSPENSION PEG SCH (21:31)
[2021-04-22] MEDS: FOLIC ACID 1 MG TABLET (FP) GT SCH (21:34)
[2021-04-22] MEDS: FERROUS SULFATE 220 MG/5 ML ELIXIR GT SCH (21:34)
[2021-04-23] MEDS: ALBUTEROL SO4 2.5/IPRATROPIUM 0.5 INH SOL 3 ML VIAL.NEB. NEB SCH ×5 (00:05→15:31)
[2021-04-23] MEDS ORDERED: PIPERACILLIN/TAZOBACTAM 3.375 GM VIAL IVPB ONE ×2 (00:23→16:39)
[2021-04-23] MEDS ORDERED: DEXTROSE 5%-WATER - 50 ML IVPB ONE ×2 (00:24→16:39)
[2021-04-23] MEDS: PIPERACILLIN/TAZOB 3.375 GM 3.375 GM in DEXTROSE 5%-WATER - 50 ML IVPB SCH ×2 (01:03→17:06)
[2021-04-23] MEDS ORDERED: PT OWN MED DRAWER 7, Y5N ONE ×3 (06:26→22:12)
[2021-04-23] MEDS: LAMOTRIGINE GT SCH (06:30)
[2021-04-23] MEDS: SENNOSIDES 8.6MG TABLET (FP) PO SCH (06:30)
[2021-04-23] MEDS: BUDESONIDE 0.5 MG/2 ML INH SUSP VIAL NEB SCH ×2 (07:20→20:49)
[2021-04-23] MEDS: AMINO ACIDS/PROTEIN HYDROLYS 30 ML LIQUID.PKT PO SCH (08:55)
[2021-04-23] MEDS: levETIRAcetam 500 MG/5 ML ORAL SOLUTION (UNIT-DOSE CUPS) GT SCH ×2 (09:25→22:14)
[2021-04-23] MEDS: POLYETHYLENE GLYCOL (HEALTHYLAX) 3350 17 GM PACKET PO SCH (09:25)
[2021-04-23] MEDS: cloBAZam 10 MG TABLET PO SCH ×2 (09:25→22:14)
[2021-04-23] MEDS: MAGNESIUM HYDROX 2400MG/30ML ORAL SUSPENSION 30 ML CUP GT SCH ×2 (09:25→22:14)
[2021-04-23] MEDS: amLODIPine BESYLATE 5 MG TABLET (FP) GT SCH (09:25)
[2021-04-23] MEDS: METOPROLOL TARTRATE 50 MG TABLET (FP) PEG SCH ×2 (09:25→22:13)
[2021-04-23] MEDS: LORATADINE 10 MG TABLET GT SCH (09:26)
[2021-04-23] MEDS: ENOXAPARIN NA (PORCINE) 40 MG/0.4 ML DISP.SYRIN SQ SCH (09:26)
[2021-04-23] MEDS: CHOLECALCIFEROL (VIT D3) 1,000 UNIT (25 MCG) TABLET GT SCH (09:26)
[2021-04-23] MEDS: CALCIUM 500MG/VIT-D 200 UNITS COMBO TABLET (FP) GT SCH ×2 (09:26→22:14)
[2021-04-23 10:42] LABS: BASO % 0.2 % (0-2.0); EOS % 4.2 % (0-4.5); HEMATOCRIT 42.5 % (35.4-49); HEMOGLOBIN 14.2 GM/dL (11.7-16.9); LYMPH % 17.4 % (8-40); MCH 28.9 pg (25.7-33.7); MCHC 33.3 g/dl (32.0-35.9); MEAN CELL VOLUME 86.8 fl (80-96); MEAN PLT VOLUME 8.9 fl (7.5-11.1); MONO % 10.3 % (3.8-10.2); NEUT % 67.9 % (42.8-82.8); PLATELET COUNT 205 10^3/uL (134-434); RDW 14.2 % (11.9-15.9); WHITE BLOOD COUNT 5.2 K/mm3 (4.0-10.0)
[2021-04-23 11:13] LABS: CALCIUM 8.8 mg/dL (8.5-10.1)
[2021-04-23 11:14] LABS: ALBUMIN 3.5 g/dl (3.4-5.0); BLOOD UREA NITROGEN 8.5 mg/dL (7-18)
[2021-04-23 11:17] LABS: CREATININE 0.5 mg/dL (0.55-1.3)
[2021-04-23 11:19] LABS: BILIRUBIN,TOTAL 0.7 mg/dL (0.2-1)
[2021-04-23 11:20] LABS: TOT PROT 7.7 g/dl (6.4-8.2)
[2021-04-23] MEDS: lamoTRIgine 100 MG TABLET GT SCH ×2 (13:37→22:49)
[2021-04-23] MEDS: ALBUTEROL SO4 2.5/IPRATROPIUM 0.5 INH SOL 3 ML VIAL.NEB. NEB PRN (20:50)
[2021-04-23] MEDS: FOLIC ACID 1 MG TABLET (FP) GT SCH (22:14)
[2021-04-23] MEDS: FERROUS SULFATE 220 MG/5 ML ELIXIR GT SCH (22:15)
[2021-04-23] MEDS: FAMOTIDINE 40 MG/5 ML ORAL SUSPENSION PEG SCH (22:18)
[2021-04-24] MEDS ORDERED: PIPERACILLIN/TAZOBACTAM 3.375 GM VIAL IVPB ONE ×2 (00:47→08:55)
[2021-04-24] MEDS ORDERED: DEXTROSE 5%-WATER - 50 ML IVPB ONE ×2 (00:47→08:55)
[2021-04-24] MEDS: PIPERACILLIN/TAZOB 3.375 GM 3.375 GM in DEXTROSE 5%-WATER - 50 ML IVPB SCH ×2 (02:15→09:01)
[2021-04-24] MEDS: LAMOTRIGINE GT SCH (06:30)
[2021-04-24] MEDS: SENNOSIDES 8.6MG TABLET (FP) PO SCH (06:58)
[2021-04-24] MEDS: BUDESONIDE 0.5 MG/2 ML INH SUSP VIAL NEB SCH ×2 (07:30→20:04)
[2021-04-24] MEDS: ALBUTEROL SO4 2.5/IPRATROPIUM 0.5 INH SOL 3 ML VIAL.NEB. NEB PRN (07:40)
[2021-04-24] MEDS ORDERED: AMINO ACIDS/PROTEIN HYDROLYS 30 ML LIQUID.PKT PO SCH (08:00)
[2021-04-24 08:51] LABS: BASO % 0.3 % (0-2.0); EOS % 3.7 % (0-4.5); HEMATOCRIT 41.7 % (35.4-49); HEMOGLOBIN 13.9 GM/dL (11.7-16.9); LYMPH % 20.9 % (8-40); MCH 28.3 pg (25.7-33.7); MCHC 33.3 g/dl (32.0-35.9); MEAN CELL VOLUME 85.1 fl (80-96); MEAN PLT VOLUME 8.7 fl (7.5-11.1); MONO % 12.5 % (3.8-10.2); NEUT % 62.6 % (42.8-82.8); PLATELET COUNT 208 10^3/uL (134-434); RDW 14.4 % (11.9-15.9); WHITE BLOOD COUNT 5.1 K/mm3 (4.0-10.0)
[2021-04-24] MEDS: CALCIUM 500MG/VIT-D 200 UNITS COMBO TABLET (FP) GT SCH ×2 (08:59→22:50)
[2021-04-24] MEDS: METOPROLOL TARTRATE 50 MG TABLET (FP) PEG SCH ×2 (08:59→22:49)
[2021-04-24] MEDS: amLODIPine BESYLATE 5 MG TABLET (FP) GT SCH (08:59)
[2021-04-24] MEDS: CHOLECALCIFEROL (VIT D3) 1,000 UNIT (25 MCG) TABLET GT SCH (09:01)
[2021-04-24] MEDS: LORATADINE 10 MG TABLET GT SCH (09:01)
[2021-04-24] MEDS: levETIRAcetam 500 MG/5 ML ORAL SOLUTION (UNIT-DOSE CUPS) GT SCH ×2 (09:02→22:52)
[2021-04-24] MEDS: ENOXAPARIN NA (PORCINE) 40 MG/0.4 ML DISP.SYRIN SQ SCH (09:03)
[2021-04-24] MEDS: cloBAZam 10 MG TABLET PO SCH ×2 (09:03→22:50)
[2021-04-24] MEDS: MAGNESIUM HYDROX 2400MG/30ML ORAL SUSPENSION 30 ML CUP GT SCH ×2 (09:09→22:52)
[2021-04-24 09:22] LABS: CALCIUM 8.7 mg/dL (8.5-10.1)
[2021-04-24 09:24] LABS: ALBUMIN 3.1 g/dl (3.4-5.0); BLOOD UREA NITROGEN 9.8 mg/dL (7-18); MAGNESIUM 2.2 mg/dL (1.8-2.4)
[2021-04-24 09:27] LABS: CREATININE 0.7 mg/dL (0.55-1.3); PHOSPHOROUS 2.5 mg/dL (2.5-4.9)
[2021-04-24 09:28] LABS: BILIRUBIN,TOTAL 0.4 mg/dL (0.2-1); TOT PROT 7.1 g/dl (6.4-8.2)
[2021-04-24] MEDS: POLYETHYLENE GLYCOL (HEALTHYLAX) 3350 17 GM PACKET PO SCH (09:53)
[2021-04-24] MEDS ORDERED: POLYETHYLENE GLYCOL (HEALTHYLAX) 3350 17 GM PACKET PO SCH (10:00)
[2021-04-24] MEDS ORDERED: PT OWN MED DRAWER 7, Y5N ONE ×2 (14:36→22:23)
[2021-04-24] MEDS: lamoTRIgine 100 MG TABLET GT SCH ×2 (14:41→22:48)
[2021-04-24] MEDS: FOLIC ACID 1 MG TABLET (FP) GT SCH (22:50)
[2021-04-24] MEDS: FAMOTIDINE 40 MG/5 ML ORAL SUSPENSION PEG SCH (22:51)
[2021-04-24] MEDS: FERROUS SULFATE 220 MG/5 ML ELIXIR GT SCH (22:54)
[2021-04-25] MEDS ORDERED: PT OWN MED DRAWER 7, Y5N ONE ×5 (06:35→21:25)
[2021-04-25] MEDS: SENNOSIDES 8.6MG TABLET (FP) PO SCH (06:37)
[2021-04-25] MEDS: LAMOTRIGINE GT SCH (06:37)
[2021-04-25] MEDS: BUDESONIDE 0.5 MG/2 ML INH SUSP VIAL NEB SCH ×2 (07:25→20:15)
[2021-04-25] MEDS: ALBUTEROL SO4 2.5/IPRATROPIUM 0.5 INH SOL 3 ML VIAL.NEB. NEB PRN (07:40)
[2021-04-25 09:21] LABS: CALCIUM 8.6 mg/dL (8.5-10.1)
[2021-04-25 09:22] LABS: BLOOD UREA NITROGEN 7.8 mg/dL (7-18)
[2021-04-25 09:25] LABS: CREATININE 0.5 mg/dL (0.55-1.3); PHOSPHOROUS 2.3 mg/dL (2.5-4.9)
[2021-04-25] MEDS: LORATADINE 10 MG TABLET GT SCH (10:00)
[2021-04-25] MEDS: ENOXAPARIN NA (PORCINE) 40 MG/0.4 ML DISP.SYRIN SQ SCH (10:00)
[2021-04-25] MEDS: levETIRAcetam 500 MG/5 ML ORAL SOLUTION (UNIT-DOSE CUPS) GT SCH ×2 (10:00→21:48)
[2021-04-25] MEDS: cloBAZam 10 MG TABLET PO SCH ×2 (10:00→21:49)
[2021-04-25] MEDS: amLODIPine BESYLATE 5 MG TABLET (FP) GT SCH (10:00)
[2021-04-25] MEDS: METOPROLOL TARTRATE 50 MG TABLET (FP) PEG SCH ×2 (10:00→21:47)
[2021-04-25] MEDS: CALCIUM 500MG/VIT-D 200 UNITS COMBO TABLET (FP) GT SCH ×2 (10:00→21:47)
[2021-04-25] MEDS: CHOLECALCIFEROL (VIT D3) 1,000 UNIT (25 MCG) TABLET GT SCH (10:00)
[2021-04-25] MEDS: POLYETHYLENE GLYCOL (HEALTHYLAX) 3350 17 GM PACKET PO SCH (10:01)
[2021-04-25] MEDS: MAGNESIUM HYDROX 2400MG/30ML ORAL SUSPENSION 30 ML CUP GT SCH ×2 (10:02→21:50)
[2021-04-25] MEDS: AMINO ACIDS/PROTEIN HYDROLYS 30 ML LIQUID.PKT PO SCH (10:02)
[2021-04-25] MEDS: lamoTRIgine 100 MG TABLET GT SCH ×2 (13:26→21:53)
[2021-04-25] MEDS ORDERED: BISACODYL 10 MG SUPP.RECT PR ONE (15:00)
[2021-04-25] MEDS: FAMOTIDINE 40 MG/5 ML ORAL SUSPENSION PEG SCH (21:52)
[2021-04-25] MEDS: FOLIC ACID 1 MG TABLET (FP) GT SCH (21:53)
[2021-04-25] MEDS: FERROUS SULFATE 220 MG/5 ML ELIXIR GT SCH (21:53)
[2021-04-26] MEDS: SENNOSIDES 8.6MG TABLET (FP) PO SCH (06:21)
[2021-04-26] MEDS ORDERED: PT OWN MED DRAWER 7, Y5N ONE ×4 (06:22→21:57)
[2021-04-26] MEDS: LAMOTRIGINE GT SCH (06:24)
[2021-04-26] MEDS: BUDESONIDE 0.5 MG/2 ML INH SUSP VIAL NEB SCH ×2 (07:43→20:10)
[2021-04-26] MEDS: AMINO ACIDS/PROTEIN HYDROLYS 30 ML LIQUID.PKT PO SCH (08:27)
[2021-04-26 08:28] LABS: BASO % 0.6 % (0-2.0); HEMATOCRIT 44.4 % (35.4-49); HEMOGLOBIN 14.8 GM/dL (11.7-16.9); LYMPH % 27.8 % (8-40); MCH 28.8 pg (25.7-33.7); MCHC 33.3 g/dl (32.0-35.9); MEAN CELL VOLUME 86.4 fl (80-96); MEAN PLT VOLUME 8.3 fl (7.5-11.1); NEUT % 55.6 % (42.8-82.8); PLATELET COUNT 231 10^3/uL (134-434); RBC 5.14 M/mm3 (4.00-5.60); WHITE BLOOD COUNT 4.5 K/mm3 (4.0-10.0)
[2021-04-26 08:53] LABS: ALBUMIN 3.3 g/dl (3.4-5.0)
[2021-04-26 08:56] LABS: BILIRUBIN,TOTAL 0.4 mg/dL (0.2-1); TOT PROT 7.8 g/dl (6.4-8.2)
[2021-04-26 08:58] LABS: BLOOD UREA NITROGEN 7.2 mg/dL (7-18); CALCIUM 8.7 mg/dL (8.5-10.1); CREATININE 0.5 mg/dL (0.55-1.3)
[2021-04-26 08:59] LABS: PHOSPHOROUS 2.5 mg/dL (2.5-4.9)
[2021-04-26] MEDS: CALCIUM 500MG/VIT-D 200 UNITS COMBO TABLET (FP) GT SCH ×2 (13:06→21:59)
[2021-04-26] MEDS: METOPROLOL TARTRATE 50 MG TABLET (FP) PEG SCH ×2 (13:06→22:00)
[2021-04-26] MEDS: amLODIPine BESYLATE 5 MG TABLET (FP) GT SCH (13:06)
[2021-04-26] MEDS: levETIRAcetam 500 MG/5 ML ORAL SOLUTION (UNIT-DOSE CUPS) GT SCH ×2 (13:06→22:03)
[2021-04-26] MEDS: LORATADINE 10 MG TABLET GT SCH (13:07)
[2021-04-26] MEDS: cloBAZam 10 MG TABLET PO SCH (13:07)
[2021-04-26] MEDS: MAGNESIUM HYDROX 2400MG/30ML ORAL SUSPENSION 30 ML CUP GT SCH ×2 (13:07→22:04)
[2021-04-26] MEDS: POLYETHYLENE GLYCOL (HEALTHYLAX) 3350 17 GM PACKET PO SCH (13:07)
[2021-04-26] MEDS: CHOLECALCIFEROL (VIT D3) 1,000 UNIT (25 MCG) TABLET GT SCH (13:08)
[2021-04-26] MEDS: lamoTRIgine 100 MG TABLET GT SCH ×2 (14:00→22:05)
[2021-04-26] MEDS: FOLIC ACID 1 MG TABLET (FP) GT SCH (21:59)
[2021-04-26] MEDS: FERROUS SULFATE 220 MG/5 ML ELIXIR GT SCH (22:05)
[2021-04-26] MEDS: FAMOTIDINE 40 MG/5 ML ORAL SUSPENSION PEG SCH (22:32)
[2021-04-27] MEDS ORDERED: PT OWN MED DRAWER 7, Y5N ONE ×6 (05:45→13:34)
[2021-04-27] MEDS: SENNOSIDES 8.6MG TABLET (FP) PO SCH (06:09)
[2021-04-27] MEDS: LAMOTRIGINE GT SCH (06:45)
[2021-04-27] MEDS: BUDESONIDE 0.5 MG/2 ML INH SUSP VIAL NEB SCH (07:30)
[2021-04-27] MEDS: METOPROLOL TARTRATE 50 MG TABLET (FP) PEG SCH (09:25)
[2021-04-27] MEDS: AMINO ACIDS/PROTEIN HYDROLYS 30 ML LIQUID.PKT PO SCH (09:25)
[2021-04-27] MEDS: amLODIPine BESYLATE 5 MG TABLET (FP) GT SCH (09:25)
[2021-04-27] MEDS: CHOLECALCIFEROL (VIT D3) 1,000 UNIT (25 MCG) TABLET GT SCH (09:25)
[2021-04-27] MEDS: POLYETHYLENE GLYCOL (HEALTHYLAX) 3350 17 GM PACKET PO SCH (09:25)
[2021-04-27] MEDS: CALCIUM 500MG/VIT-D 200 UNITS COMBO TABLET (FP) GT SCH (09:25)
[2021-04-27] MEDS: LORATADINE 10 MG TABLET GT SCH (09:27)
[2021-04-27] MEDS: levETIRAcetam 500 MG/5 ML ORAL SOLUTION (UNIT-DOSE CUPS) GT SCH (09:27)
[2021-04-27] MEDS: MAGNESIUM HYDROX 2400MG/30ML ORAL SUSPENSION 30 ML CUP GT SCH (09:28)
[2021-04-27 11:33] LABS: BLOOD UREA NITROGEN 8.1 mg/dL (7-18); CALCIUM 8.5 mg/dL (8.5-10.1)
[2021-04-27 11:36] LABS: CREATININE 0.5 mg/dL (0.55-1.3)
[2021-04-27] MEDS: lamoTRIgine 100 MG TABLET GT SCH (13:36)
[2021-04-27 15:30] VITALS: BP 137/88; PULSE 55; TEMP 98.1
== END 2021-04-27 19:41 | DRG 720 ==
LOC: JER 06:46 → JERBED 07:42 → J6S 17:19
PROVIDERS: ADMIT Internal Medicine; ATTEND Internal Medicine
DX: A41.89 Other specified sepsis (principal); J69.0 Pneumonitis due to inhalation of food and vomit; G91.1 Obstructive hydrocephalus; J96.01 Acute respiratory failure with hypoxia; G40.909 Epilepsy, unspecified, not intractable, without status epilepticus; G82.50 Quadriplegia, unspecified; F79 Unspecified intellectual disabilities; R94.5 Abnormal results of liver function studies; I10 Essential (primary) hypertension; R50.9 Fever, unspecified; R14.0 Abdominal distension (gaseous)
CPT/HCPCS: 36415; 36600; 71045-TC-FY; 74018-TC-FY; 76705-TC; 80048; 80053; 80175; 80177; 80307; 81003; 82803; 83605; 83735; 84100; 85025; 85379; 85610; 85730; 86705; 86706; 86707; 86708; 87040; 87086; 87350; 87517; 87522; 87804; 87807; 87899; 93005; 93010; 93970-TC; 94640; 94761; 99285-25; C9803; U0003; U0005

== ENCOUNTER 2021-11-04 14:41 | Inpatient (IN) | payer OTHER ==
[2021-11-04 18:47] LABS: BASO % 0.2 % (0-2.0); EOS % 2.7 % (0-4.5); HEMOGLOBIN 17.2 GM/dL (11.7-16.9); MCH 28.6 pg (25.7-33.7); MCHC 33.1 g/dl (32.0-35.9); MEAN CELL VOLUME 86.4 fl (80-96); MEAN PLT VOLUME 9.2 fl (7.5-11.1); MONO % 13.3 % (3.8-10.2); NEUT % 68.8 % (42.8-82.8); PLATELET COUNT 201 10^3/uL (134-434); RBC 6.02 M/mm3 (4.00-5.60); RDW 14.2 % (11.9-15.9); WHITE BLOOD COUNT 6.7 K/mm3 (4.0-10.0)
[2021-11-04] MEDS ORDERED: amLODIPine BESYLATE 5 MG TABLET (FP) PO ONE (18:50)
[2021-11-04 19:14] LABS: ALBUMIN 4.7 g/dl (3.4-5.0); BLOOD UREA NITROGEN 12.5 mg/dL (7-18); CALCIUM 10.5 mg/dL (8.5-10.1)
[2021-11-04 19:16] LABS: CREATININE 0.7 mg/dL (0.55-1.3)
[2021-11-04 19:18] LABS: BILIRUBIN,TOTAL 0.4 mg/dL (0.2-1); TOT PROT 9.3 g/dl (6.4-8.2)
[2021-11-04] MEDS ORDERED: amLODIPine BESYLATE 5 MG TABLET (FP) ONE (19:31)
[2021-11-04 19:35] LABS: LACTIC ACID 2.3 mmol/L (0.4-2.0)
[2021-11-04] MEDS ORDERED: LABETALOL HCL 5 MG/1 ML (100MG/20 ML VIAL) IVPUSH ONE ×2 (20:41→21:28)
[2021-11-04] MEDS: DEXTROSE 5%-LACTATED RINGERS 1,000 ML IV SCH (20:42)
[2021-11-04] MEDS ORDERED: LACTATED RINGERS SOLUTION 1000 ML INFUS.BAG IV ONE (21:00)
[2021-11-04] MEDS ORDERED: ACETAMINOPHEN 1000 MG/100 ML BAG IVPB ONE (21:28)
[2021-11-04] MEDS ORDERED: DOCUSATE NA 100 MG/10 ML UNIT-DOSE CUPS PO PRN (21:33)
[2021-11-04] MEDS ORDERED: ACETAMINOPHEN INJECTION 100 ML IVPB ONE (21:34)
[2021-11-04] MEDS ORDERED: POLYETHYLENE GLYCOL (HEALTHYLAX) 3350 17 GM PACKET ONE (22:21)
[2021-11-04] MEDS: POLYETHYLENE GLYCOL (HEALTHYLAX) 3350 17 GM PACKET PO SCH (22:26)
[2021-11-05] MEDS ORDERED: LORazepam 2 MG/ML SDV VIAL IVPUSH ONE (00:13)
[2021-11-05] MEDS ORDERED: morphine CARPU-JECT 4 MG/1 ML DISP.SYRIN IVPUSH ONE (00:31)
[2021-11-05 01:04] LABS: PH,URINE >= 9.0 (5.0-8.0); URINE APPEARANCE TURBID; URINE BILIRUBIN NEGATIVE (NEGATIVE); URINE COLOR YELLOW; URINE GLUCOSE (UA) NEGATIVE (NEGATIVE); URINE KETONE NEGATIVE (NEGATIVE); URINE LEUK ESTERASE NEGATIVE (NEGATIVE); URINE NITRITE NEGATIVE (NEGATIVE); URINE PROTEIN NEGATIVE (NEGATIVE); URINE UROBILINOGEN 0.2 mg/dL (0.2-1.0)
[2021-11-05] MEDS ORDERED: amLODIPine BESYLATE 5 MG TABLET (FP) PO ONE (02:39)
[2021-11-05] MEDS ORDERED: ALBUTEROL SO4 2.5/IPRATROPIUM 0.5 INH SOL 3 ML VIAL.NEB. NEB PRN (02:40)
[2021-11-05] MEDS ORDERED: levETIRAcetam 500 MG TABLET (FP) PO SCH (06:00)
[2021-11-05] MEDS ORDERED: lamoTRIgine 100 MG TABLET GT SCH (06:00)
[2021-11-05] MEDS ORDERED: lamoTRIgine 100 MG TABLET PO SCH (06:00)
[2021-11-05] MEDS ORDERED: lamoTRIgine 100 MG TABLET GT ONE (06:15)
[2021-11-05] MEDS ORDERED: levETIRAcetam 500 MG/5 ML ORAL SOLUTION (UNIT-DOSE CUPS) GT ONE (06:15)
[2021-11-05] MEDS ORDERED: lamoTRIgine 100 MG TABLET PO ONE (06:15)
[2021-11-05] MEDS: DEXTROSE 5%-LACTATED RINGERS 1,000 ML IV SCH ×2 (09:02→18:34)
[2021-11-05] MEDS ORDERED: lamoTRIgine 25 MG TABLET PO SCH (10:00)
[2021-11-05] MEDS ORDERED: levETIRAcetam 250 MG TABLET PO SCH (10:00)
[2021-11-05] MEDS ORDERED: METOPROLOL TARTRATE 50 MG TABLET (FP) PEG SCH (10:00)
[2021-11-05] MEDS ORDERED: cloBAZam 10 MG TABLET PO SCH (10:00)
[2021-11-05] MEDS ORDERED: LAMOTRIGINE 50 MG GT SCH (10:00)
[2021-11-05] MEDS ORDERED: METOPROLOL TARTRATE 25 MG TABLET (FP) ONE ×2 (10:45→20:56)
[2021-11-05] MEDS ORDERED: METOPROLOL TARTRATE 50 MG TABLET (FP) ONE ×2 (10:45→20:56)
[2021-11-05] MEDS: diazePAM 2 MG TABLET GT SCH ×2 (10:53→21:21)
[2021-11-05] MEDS: ENOXAPARIN NA (PORCINE) 40 MG/0.4 ML DISP.SYRIN SQ SCH (10:53)
[2021-11-05] MEDS: METOPROLOL TARTRATE 50 MG, METOPROLOL TARTRATE 25 MG PEG SCH ×2 (10:53→21:20)
[2021-11-05] MEDS: LORATADINE 10 MG TABLET GT SCH (10:54)
[2021-11-05] MEDS: amLODIPine BESYLATE 5 MG TABLET (FP) GT SCH (10:54)
[2021-11-05] MEDS: POLYETHYLENE GLYCOL (HEALTHYLAX) 3350 17 GM PACKET PO SCH (10:54)
[2021-11-05] MEDS: MAGNESIUM HYDROX 2400MG/30ML ORAL SUSPENSION 30 ML CUP GT SCH ×2 (11:03→21:21)
[2021-11-05 12:43] LABS: BASO % 0.1 % (0-2.0); EOS % 4.2 % (0-4.5); HEMATOCRIT 47.5 % (35.4-49); HEMOGLOBIN 15.5 GM/dL (11.7-16.9); LYMPH % 16.4 % (8-40); MCHC 32.7 g/dl (32.0-35.9); MEAN CELL VOLUME 85.7 fl (80-96); MEAN PLT VOLUME 9.2 fl (7.5-11.1); MONO % 12.6 % (3.8-10.2); NEUT % 66.7 % (42.8-82.8); PLATELET COUNT 181 10^3/uL (134-434); RBC 5.54 M/mm3 (4.00-5.60); RDW 14.4 % (11.9-15.9); WHITE BLOOD COUNT 5.6 K/mm3 (4.0-10.0)
[2021-11-05 13:06] LABS: BLOOD UREA NITROGEN 7.2 mg/dL (7-18)
[2021-11-05 13:07] LABS: MAGNESIUM 1.9 mg/dL (1.8-2.4)
[2021-11-05 13:09] LABS: CREATININE 0.5 mg/dL (0.55-1.3); PHOSPHOROUS 2.2 mg/dL (2.5-4.9)
[2021-11-05 13:11] LABS: TOT PROT 7.5 g/dl (6.4-8.2)
[2021-11-05 13:12] LABS: BILIRUBIN,TOTAL 0.5 mg/dL (0.2-1)
[2021-11-05 13:46] LABS: ALBUMIN 3.6 g/dl (3.4-5.0); CALCIUM 8.7 mg/dL (8.5-10.1)
[2021-11-05] MEDS: POLYETHYLENE GLYCOL (HEALTHYLAX) 3350 17 GM PACKET GT SCH ×2 (14:26→21:20)
[2021-11-05] MEDS ORDERED: POLYETHYLENE GLYCOL (HEALTHYLAX) 3350 17 GM PACKET PO SCH (14:45)
[2021-11-05] MEDS: levETIRAcetam 500 MG/5 ML ORAL SOLUTION (UNIT-DOSE CUPS) PO SCH ×2 (18:04→21:23)
[2021-11-05] MEDS ORDERED: POTASSIUM CHLORIDE ORAL LIQUID 20 MEQ/15 ML GT ONE (18:20)
[2021-11-05] MEDS: lamoTRIgine 100 MG TABLET GT SCH ×3 (18:47→21:22)
[2021-11-05] MEDS: cloBAZam 10 MG TABLET GT SCH (21:21)
[2021-11-05] MEDS: SENNOSIDES 8.8 MG/5 ML BULK BOTTLE GT SCH (21:21)
[2021-11-05] MEDS: levETIRAcetam 500 MG/5 ML ORAL SOLUTION (UNIT-DOSE CUPS) GT SCH (21:21)
[2021-11-05] MEDS: lamoTRIgine 25 MG TABLET NR SCH (21:23)
[2021-11-05] MEDS: FOLIC ACID 1 MG TABLET (FP) GT SCH (21:31)
[2021-11-05] MEDS ORDERED: PSYLLIUM 5.85 GM PACKET GT SCH (22:00)
[2021-11-06] MEDS: lamoTRIgine 25 MG TABLET NR SCH ×3 (06:28→22:22)
[2021-11-06] MEDS: levETIRAcetam 500 MG/5 ML ORAL SOLUTION (UNIT-DOSE CUPS) GT SCH ×3 (06:28→21:30)
[2021-11-06] MEDS: DEXTROSE 5%-LACTATED RINGERS 1,000 ML IV SCH ×3 (06:29→19:30)
[2021-11-06] MEDS: lamoTRIgine 100 MG TABLET GT SCH ×3 (06:29→21:30)
[2021-11-06] MEDS: POLYETHYLENE GLYCOL (HEALTHYLAX) 3350 17 GM PACKET GT SCH (06:29)
[2021-11-06] MEDS: levETIRAcetam 500 MG/5 ML ORAL SOLUTION (UNIT-DOSE CUPS) PO SCH ×2 (06:32→17:09)
[2021-11-06] MEDS ORDERED: METOPROLOL TARTRATE 50 MG TABLET (FP) ONE ×2 (10:00→21:43)
[2021-11-06] MEDS ORDERED: METOPROLOL TARTRATE 25 MG TABLET (FP) ONE ×2 (10:00→21:42)
[2021-11-06] MEDS ORDERED: PEG 3350/NA SULF BICARB CL/KCL 4000 ML SOLN.RECON GT ONE (10:15)
[2021-11-06] MEDS: LORATADINE 10 MG TABLET GT SCH (10:37)
[2021-11-06] MEDS: MINERAL OIL ENEMA 133 ML ENEMA PR SCH (10:38)
[2021-11-06] MEDS: amLODIPine BESYLATE 5 MG TABLET (FP) GT SCH (10:38)
[2021-11-06] MEDS: diazePAM 2 MG TABLET GT SCH ×2 (10:38→22:15)
[2021-11-06] MEDS: cloBAZam 10 MG TABLET GT SCH ×2 (10:38→22:15)
[2021-11-06] MEDS: METOPROLOL TARTRATE 50 MG, METOPROLOL TARTRATE 25 MG PEG SCH ×2 (10:38→22:15)
[2021-11-06] MEDS: MAGNESIUM HYDROX 2400MG/30ML ORAL SUSPENSION 30 ML CUP GT SCH (11:25)
[2021-11-06] MEDS: ENOXAPARIN NA (PORCINE) 40 MG/0.4 ML DISP.SYRIN SQ SCH (12:14)
[2021-11-06 12:50] LABS: BASO % 0.2 % (0-2.0); EOS % 4.9 % (0-4.5); HEMATOCRIT 43.1 % (35.4-49); HEMOGLOBIN 14.4 GM/dL (11.7-16.9); LYMPH % 20.2 % (8-40); MCH 28.7 pg (25.7-33.7); MCHC 33.4 g/dl (32.0-35.9); MEAN CELL VOLUME 85.8 fl (80-96); MEAN PLT VOLUME 8.9 fl (7.5-11.1); MONO % 14.3 % (3.8-10.2); NEUT % 60.4 % (42.8-82.8); PLATELET COUNT 159 10^3/uL (134-434); RBC 5.02 M/mm3 (4.00-5.60); RDW 14.6 % (11.9-15.9); WHITE BLOOD COUNT 6.5 K/mm3 (4.0-10.0)
[2021-11-06 13:18] LABS: CALCIUM 8.6 mg/dL (8.5-10.1); MAGNESIUM 2.3 mg/dL (1.8-2.4)
[2021-11-06 13:19] LABS: ALBUMIN 3.4 g/dl (3.4-5.0); BLOOD UREA NITROGEN 6.5 mg/dL (7-18); CREATININE 0.5 mg/dL (0.55-1.3)
[2021-11-06 13:22] LABS: BILIRUBIN,DIRECT 0.2 mg/dL (0.0-0.2)
[2021-11-06 13:24] LABS: BILIRUBIN,TOTAL 0.6 mg/dL (0.2-1)
[2021-11-06] MEDS: FOLIC ACID 1 MG TABLET (FP) GT SCH (22:15)
[2021-11-06] MEDS: SENNOSIDES 8.8 MG/5 ML BULK BOTTLE GT SCH (22:15)
[2021-11-07] MEDS: levETIRAcetam 500 MG/5 ML ORAL SOLUTION (UNIT-DOSE CUPS) GT SCH ×3 (05:36→21:19)
[2021-11-07] MEDS: levETIRAcetam 500 MG/5 ML ORAL SOLUTION (UNIT-DOSE CUPS) PO SCH ×2 (05:36→16:25)
[2021-11-07] MEDS: lamoTRIgine 25 MG TABLET NR SCH ×3 (05:37→21:19)
[2021-11-07] MEDS: lamoTRIgine 100 MG TABLET GT SCH ×3 (05:37→21:18)
[2021-11-07 09:23] LABS: BASO % 0.1 % (0-2.0); EOS % 3.6 % (0-4.5); HEMATOCRIT 41.4 % (35.4-49); HEMOGLOBIN 13.6 GM/dL (11.7-16.9); MCH 28.2 pg (25.7-33.7); MCHC 32.8 g/dl (32.0-35.9); MEAN PLT VOLUME 9.1 fl (7.5-11.1); MONO % 12.5 % (3.8-10.2); NEUT % 67.8 % (42.8-82.8); PLATELET COUNT 144 10^3/uL (134-434); RBC 4.82 M/mm3 (4.00-5.60); RDW 14.5 % (11.9-15.9); WHITE BLOOD COUNT 5.8 K/mm3 (4.0-10.0)
[2021-11-07 09:49] LABS: CALCIUM 8.2 mg/dL (8.5-10.1)
[2021-11-07 09:50] LABS: BLOOD UREA NITROGEN 3.8 mg/dL (7-18)
[2021-11-07] MEDS ORDERED: METOPROLOL TARTRATE 25 MG TABLET (FP) ONE ×2 (09:51→21:01)
[2021-11-07] MEDS ORDERED: METOPROLOL TARTRATE 50 MG TABLET (FP) ONE ×2 (09:51→21:01)
[2021-11-07 09:53] LABS: CREATININE 0.5 mg/dL (0.55-1.3)
[2021-11-07] MEDS: ENOXAPARIN NA (PORCINE) 40 MG/0.4 ML DISP.SYRIN SQ SCH (09:53)
[2021-11-07] MEDS: cloBAZam 10 MG TABLET GT SCH ×2 (09:53→21:18)
[2021-11-07] MEDS: METOPROLOL TARTRATE 50 MG, METOPROLOL TARTRATE 25 MG PEG SCH ×2 (09:53→21:18)
[2021-11-07] MEDS: LORATADINE 10 MG TABLET GT SCH (09:53)
[2021-11-07] MEDS: amLODIPine BESYLATE 5 MG TABLET (FP) GT SCH (09:53)
[2021-11-07] MEDS: MINERAL OIL ENEMA 133 ML ENEMA PR SCH (09:53)
[2021-11-07] MEDS: diazePAM 2 MG TABLET GT SCH ×2 (09:53→21:18)
[2021-11-07 11:07] VITALS: BMI 27.3
[2021-11-07] MEDS ORDERED: POTASSIUM CHLORIDE ORAL LIQUID 20 MEQ/15 ML PO ONE (15:48)
[2021-11-07] MEDS: SENNOSIDES 8.8 MG/5 ML BULK BOTTLE GT SCH (21:17)
[2021-11-07] MEDS: FOLIC ACID 1 MG TABLET (FP) GT SCH (21:18)
[2021-11-08] MEDS: lamoTRIgine 100 MG TABLET GT SCH ×3 (05:59→22:08)
[2021-11-08] MEDS: lamoTRIgine 25 MG TABLET NR SCH ×3 (05:59→22:09)
[2021-11-08] MEDS: levETIRAcetam 500 MG/5 ML ORAL SOLUTION (UNIT-DOSE CUPS) PO SCH ×2 (06:03→16:09)
[2021-11-08] MEDS: levETIRAcetam 500 MG/5 ML ORAL SOLUTION (UNIT-DOSE CUPS) GT SCH ×3 (06:03→22:09)
[2021-11-08] MEDS ORDERED: METOPROLOL TARTRATE 25 MG TABLET (FP) ONE ×3 (10:02→22:19)
[2021-11-08] MEDS ORDERED: METOPROLOL TARTRATE 50 MG TABLET (FP) ONE ×2 (10:03→21:04)
[2021-11-08] MEDS: amLODIPine BESYLATE 5 MG TABLET (FP) GT SCH (10:12)
[2021-11-08] MEDS: LORATADINE 10 MG TABLET GT SCH (10:12)
[2021-11-08] MEDS: METOPROLOL TARTRATE 50 MG, METOPROLOL TARTRATE 25 MG PEG SCH ×2 (10:12→22:21)
[2021-11-08] MEDS: cloBAZam 10 MG TABLET GT SCH ×2 (10:12→22:08)
[2021-11-08] MEDS: diazePAM 2 MG TABLET GT SCH ×2 (10:12→22:08)
[2021-11-08] MEDS: ENOXAPARIN NA (PORCINE) 40 MG/0.4 ML DISP.SYRIN SQ SCH (10:13)
[2021-11-08 13:15] LABS: CALCIUM 8.4 mg/dL (8.5-10.1)
[2021-11-08 13:16] LABS: BLOOD UREA NITROGEN 4.3 mg/dL (7-18)
[2021-11-08 13:19] LABS: CREATININE 0.4 mg/dL (0.55-1.3)
[2021-11-08] MEDS: POTASSIUM CHLORIDE ORAL LIQUID 20 MEQ/15 ML PO SCH ×2 (13:46→22:07)
[2021-11-08] MEDS: SENNOSIDES 8.8 MG/5 ML BULK BOTTLE GT SCH (22:07)
[2021-11-08] MEDS: FOLIC ACID 1 MG TABLET (FP) GT SCH (22:08)
[2021-11-09] MEDS: lamoTRIgine 100 MG TABLET GT SCH ×3 (06:10→21:30)
[2021-11-09] MEDS: lamoTRIgine 25 MG TABLET NR SCH ×3 (06:10→21:30)
[2021-11-09] MEDS: levETIRAcetam 500 MG/5 ML ORAL SOLUTION (UNIT-DOSE CUPS) PO SCH ×2 (06:11→16:45)
[2021-11-09] MEDS: levETIRAcetam 500 MG/5 ML ORAL SOLUTION (UNIT-DOSE CUPS) GT SCH ×3 (06:13→21:37)
[2021-11-09] MEDS ORDERED: METOPROLOL TARTRATE 25 MG TABLET (FP) ONE ×2 (10:40→21:15)
[2021-11-09] MEDS ORDERED: METOPROLOL TARTRATE 50 MG TABLET (FP) ONE ×2 (10:40→21:16)
[2021-11-09] MEDS: METOPROLOL TARTRATE 50 MG, METOPROLOL TARTRATE 25 MG PEG SCH ×2 (10:57→21:29)
[2021-11-09] MEDS: LORATADINE 10 MG TABLET GT SCH (10:57)
[2021-11-09] MEDS: ENOXAPARIN NA (PORCINE) 40 MG/0.4 ML DISP.SYRIN SQ SCH (10:57)
[2021-11-09] MEDS: diazePAM 2 MG TABLET GT SCH ×2 (10:57→21:29)
[2021-11-09] MEDS: cloBAZam 10 MG TABLET GT SCH ×2 (10:57→21:29)
[2021-11-09] MEDS: amLODIPine BESYLATE 10 MG TABLET (FP) GT SCH (10:57)
[2021-11-09] MEDS: POTASSIUM CHLORIDE ORAL LIQUID 20 MEQ/15 ML PO SCH ×2 (10:58→21:29)
[2021-11-09 12:42] LABS: BASO % 0.2 % (0-2.0); EOS % 6.1 % (0-4.5); HEMATOCRIT 45.9 % (35.4-49); HEMOGLOBIN 15.3 GM/dL (11.7-16.9); LYMPH % 19.5 % (8-40); MCH 28.6 pg (25.7-33.7); MCHC 33.3 g/dl (32.0-35.9); MEAN PLT VOLUME 9.2 fl (7.5-11.1); MONO % 11.5 % (3.8-10.2); NEUT % 62.7 % (42.8-82.8); PLATELET COUNT 164 10^3/uL (134-434); RBC 5.34 M/mm3 (4.00-5.60); RDW 14.3 % (11.9-15.9); WHITE BLOOD COUNT 6.2 K/mm3 (4.0-10.0)
[2021-11-09 14:18] LABS: BLOOD UREA NITROGEN 7.3 mg/dL (7-18); CALCIUM 8.9 mg/dL (8.5-10.1)
[2021-11-09 14:22] LABS: CREATININE 0.5 mg/dL (0.55-1.3); MAGNESIUM 2.2 mg/dL (1.8-2.4)
[2021-11-09] MEDS: FOLIC ACID 1 MG TABLET (FP) GT SCH (21:29)
[2021-11-09] MEDS: SENNOSIDES 8.8 MG/5 ML BULK BOTTLE GT SCH (22:30)
[2021-11-10] MEDS: lamoTRIgine 100 MG TABLET GT SCH ×3 (06:25→20:54)
[2021-11-10] MEDS: lamoTRIgine 25 MG TABLET NR SCH ×3 (06:26→22:08)
[2021-11-10] MEDS: levETIRAcetam 500 MG/5 ML ORAL SOLUTION (UNIT-DOSE CUPS) PO SCH ×2 (06:31→16:30)
[2021-11-10] MEDS: levETIRAcetam 500 MG/5 ML ORAL SOLUTION (UNIT-DOSE CUPS) GT SCH ×3 (07:27→20:53)
[2021-11-10] MEDS ORDERED: METOPROLOL TARTRATE 50 MG TABLET (FP) ONE ×2 (10:18→21:54)
[2021-11-10] MEDS ORDERED: METOPROLOL TARTRATE 25 MG TABLET (FP) ONE ×2 (10:18→21:54)
[2021-11-10] MEDS: LORATADINE 10 MG TABLET GT SCH (10:27)
[2021-11-10] MEDS: cloBAZam 10 MG TABLET GT SCH ×2 (10:27→22:06)
[2021-11-10] MEDS: METOPROLOL TARTRATE 50 MG, METOPROLOL TARTRATE 25 MG PEG SCH ×2 (10:27→22:05)
[2021-11-10] MEDS: POTASSIUM CHLORIDE ORAL LIQUID 20 MEQ/15 ML PO SCH ×2 (10:27→22:05)
[2021-11-10] MEDS: ENOXAPARIN NA (PORCINE) 40 MG/0.4 ML DISP.SYRIN SQ SCH (10:27)
[2021-11-10] MEDS: diazePAM 2 MG TABLET GT SCH ×2 (10:28→22:05)
[2021-11-10] MEDS: amLODIPine BESYLATE 10 MG TABLET (FP) GT SCH (10:28)
[2021-11-10 18:53] LABS: N-TERMINAL BNP 144.7 pg/ml (5-125)
[2021-11-10] MEDS: SENNOSIDES 8.8 MG/5 ML BULK BOTTLE GT SCH (22:06)
[2021-11-10] MEDS: FOLIC ACID 1 MG TABLET (FP) GT SCH (22:06)
[2021-11-11] MEDS: levETIRAcetam 500 MG/5 ML ORAL SOLUTION (UNIT-DOSE CUPS) GT SCH ×3 (06:40→21:31)
[2021-11-11] MEDS: levETIRAcetam 500 MG/5 ML ORAL SOLUTION (UNIT-DOSE CUPS) PO SCH ×2 (06:41→15:26)
[2021-11-11] MEDS: lamoTRIgine 100 MG TABLET GT SCH ×3 (06:42→21:31)
[2021-11-11] MEDS: lamoTRIgine 25 MG TABLET NR SCH ×3 (06:44→21:31)
[2021-11-11] MEDS ORDERED: METOPROLOL TARTRATE 25 MG TABLET (FP) ONE ×2 (09:42→21:16)
[2021-11-11] MEDS ORDERED: METOPROLOL TARTRATE 50 MG TABLET (FP) ONE ×2 (09:42→21:17)
[2021-11-11] MEDS: POTASSIUM CHLORIDE ORAL LIQUID 20 MEQ/15 ML PO SCH ×2 (09:56→21:31)
[2021-11-11] MEDS: diazePAM 2 MG TABLET GT SCH ×2 (09:56→21:32)
[2021-11-11] MEDS: amLODIPine BESYLATE 10 MG TABLET (FP) GT SCH (09:56)
[2021-11-11] MEDS: cloBAZam 10 MG TABLET GT SCH ×2 (09:56→21:31)
[2021-11-11] MEDS: LORATADINE 10 MG TABLET GT SCH (09:56)
[2021-11-11] MEDS: METOPROLOL TARTRATE 50 MG, METOPROLOL TARTRATE 25 MG PEG SCH ×2 (09:56→21:31)
[2021-11-11] MEDS: FOLIC ACID 1 MG TABLET (FP) GT SCH (21:31)
[2021-11-11] MEDS: SENNOSIDES 8.8 MG/5 ML BULK BOTTLE GT SCH (21:32)
[2021-11-12] MEDS: lamoTRIgine 25 MG TABLET NR SCH ×2 (05:26→16:20)
[2021-11-12] MEDS: lamoTRIgine 100 MG TABLET GT SCH ×2 (05:26→16:19)
[2021-11-12] MEDS: levETIRAcetam 500 MG/5 ML ORAL SOLUTION (UNIT-DOSE CUPS) GT SCH ×2 (05:27→16:19)
[2021-11-12] MEDS: levETIRAcetam 500 MG/5 ML ORAL SOLUTION (UNIT-DOSE CUPS) PO SCH ×2 (05:28→16:19)
[2021-11-12] MEDS ORDERED: ALBUTEROL SO4 0.083% IH SOL 2.5 MG/3 ML VIAL.NEB. NEB ONE (09:00)
[2021-11-12] MEDS ORDERED: METOPROLOL TARTRATE 25 MG TABLET (FP) ONE (09:11)
[2021-11-12] MEDS ORDERED: METOPROLOL TARTRATE 50 MG TABLET (FP) ONE (09:11)
[2021-11-12] MEDS: POTASSIUM CHLORIDE ORAL LIQUID 20 MEQ/15 ML PO SCH (09:42)
[2021-11-12] MEDS: amLODIPine BESYLATE 10 MG TABLET (FP) GT SCH (09:43)
[2021-11-12] MEDS: cloBAZam 10 MG TABLET GT SCH (09:43)
[2021-11-12] MEDS: METOPROLOL TARTRATE 50 MG, METOPROLOL TARTRATE 25 MG PEG SCH (09:43)
[2021-11-12] MEDS: diazePAM 2 MG TABLET GT SCH (09:43)
[2021-11-12] MEDS: LORATADINE 10 MG TABLET GT SCH (09:43)
[2021-11-12] MEDS: ENOXAPARIN NA (PORCINE) 40 MG/0.4 ML DISP.SYRIN SQ SCH (10:09)
[2021-11-12 13:04] LABS: BASO % 0.2 % (0-2.0); HEMOGLOBIN 12.7 GM/dL (11.7-16.9); LYMPH % 15.7 % (8-40); MCH 28.3 pg (25.7-33.7); MCHC 32.7 g/dl (32.0-35.9); MEAN CELL VOLUME 86.6 fl (80-96); MEAN PLT VOLUME 9.3 fl (7.5-11.1); MONO % 10.9 % (3.8-10.2); NEUT % 68.2 % (42.8-82.8); PLATELET COUNT 191 10^3/uL (134-434); RDW 14.6 % (11.9-15.9); WHITE BLOOD COUNT 6.7 K/mm3 (4.0-10.0)
[2021-11-12 13:18] LABS: BLOOD UREA NITROGEN 15.2 mg/dL (7-18); CALCIUM 8.7 mg/dL (8.5-10.1)
[2021-11-12 13:21] LABS: CREATININE 0.5 mg/dL (0.55-1.3)
[2021-11-12 14:31] VITALS: BP 97/63; PULSE 69; TEMP 98.7
== END 2021-11-12 18:43 | DRG 247 ==
LOC: JER 14:41 → JERBED 20:33 → J6S 11-05 03:32
PROVIDERS: ADMIT Hospitalist
DX: K56.41 Fecal impaction (principal); R53.2 Functional quadriplegia; G40.909 Epilepsy, unspecified, not intractable, without status epilepticus; G91.1 Obstructive hydrocephalus; G31.84 Mild cognitive impairment of uncertain or unknown etiology; I16.0 Hypertensive urgency; N31.9 Neuromuscular dysfunction of bladder, unspecified; D75.1 Secondary polycythemia; E87.6 Hypokalemia; G80.8 Other cerebral palsy; E86.0 Dehydration; K56.7 Ileus, unspecified; R33.9 Retention of urine, unspecified; Z93.1 Gastrostomy status; I10 Essential (primary) hypertension; E78.5 Hyperlipidemia, unspecified; Z74.01 Bed confinement status
CPT/HCPCS: 36415; 74018-TC-FY; 74021-TC-FY; 74176-TC; 76705-TC; 80048; 80053; 80061; 80076; 81003; 82550; 82553; 82977; 83036; 83605; 83615; 83735; 83880; 84100; 84443; 85025; 87045; 87046; 87177; 87186; 87209; 87324; 87449; 93005; 93010; 93306-TC; 99285-25; C9803-CS; U0003; U0005

== ENCOUNTER 2021-11-14 19:49 | Emergency (ER) | payer OTHER ==
[2021-11-14 19:56] VITALS: TEMP 98.8; BMI 28.3
[2021-11-14 22:16] LABS: URINE APPEARANCE BLOODY; URINE COLOR RED
[2021-11-14 22:17] LABS: URINE BILIRUBIN NEGATIVE (NEGATIVE); URINE GLUCOSE (UA) NEGATIVE (NEGATIVE); URINE PROTEIN 2+ (NEGATIVE); URINE UROBILINOGEN 0.2 mg/dL (0.2-1.0)
[2021-11-14 22:19] LABS: URINE RBC >50 /uL (0-23.9)
[2021-11-14 22:20] LABS: EPI CELLS 0-2 /uL (0-25.1); HYALINE CASTS 0-1 /uL (0-3.1); URINE BACTERIA FEW /uL (0-1359); URINE WBC 0-2 /uL (0-25.8)
[2021-11-14 23:05] LABS: BASO % 0.3 % (0-2.0); EOS % 5.8 % (0-4.5); HEMATOCRIT 43.1 % (35.4-49); HEMOGLOBIN 14.4 GM/dL (11.7-16.9); LYMPH % 14.1 % (8-40); MCH 28.7 pg (25.7-33.7); MCHC 33.4 g/dl (32.0-35.9); MONO % 12.1 % (3.8-10.2); NEUT % 67.7 % (42.8-82.8); PLATELET COUNT 216 10^3/uL (134-434); RBC 5.01 M/mm3 (4.00-5.60); RDW 14.5 % (11.9-15.9); WHITE BLOOD COUNT 6.7 K/mm3 (4.0-10.0)
[2021-11-14 23:30] LABS: CALCIUM 8.9 mg/dL (8.5-10.1)
[2021-11-14 23:31] LABS: ALBUMIN 3.6 g/dl (3.4-5.0); BLOOD UREA NITROGEN 5.5 mg/dL (7-18)
[2021-11-14 23:34] LABS: CREATININE 0.4 mg/dL (0.55-1.3)
[2021-11-14 23:36] LABS: BILIRUBIN,TOTAL 0.3 mg/dL (0.2-1); TOT PROT 7.5 g/dl (6.4-8.2)
[2021-11-14 23:56] VITALS: BP 148/88; PULSE 68
== END 2021-11-15 01:12 | disposition home or self-care (01) ==
LOC: JER 19:49
DX: R31.0 Gross hematuria (principal)
CPT/HCPCS: 36415; 80053; 81003; 85025; 87086; 99283-25

== ENCOUNTER 2021-12-23 09:59 | Inpatient (IN) | payer OTHER ==
[2021-12-23] MEDS ORDERED: SODIUM CHLORIDE 0.9% 1000 ML INFUS.BAG IV ONE ×2 (10:37→14:25)
[2021-12-23 11:50] LABS: BASO % 0.8 % (0-2.0); EOS % 0.1 % (0-4.5); HEMATOCRIT 42.7 % (35.4-49); HEMOGLOBIN 13.8 GM/dL (11.7-16.9); LYMPH % 3.6 % (8-40); MCH 27.5 pg (25.7-33.7); MCHC 32.4 g/dl (32.0-35.9); MEAN CELL VOLUME 84.8 fl (80-96); MEAN PLT VOLUME 9.3 fl (7.5-11.1); MONO % 10.1 % (3.8-10.2); NEUT % 85.4 % (42.8-82.8); PLATELET COUNT 191 10^3/uL (134-434); RBC 5.03 M/mm3 (4.00-5.60)
[2021-12-23 11:54] LABS: VENOUS BASE EXCESS 8.5 mmol/L (-2-2); VENOUS O2 SATURATION 52.9 % (70-80); VENOUS PCO2 57.4 mmHg (38-52); VENOUS PH 7.408 (7.310-7.410)
[2021-12-23 12:07] LABS: ALBUMIN 3.3 g/dl (3.4-5.0); BLOOD UREA NITROGEN 12.6 mg/dL (7-18); CALCIUM 9.1 mg/dL (8.5-10.1)
[2021-12-23 12:10] LABS: CREATININE 0.9 mg/dL (0.55-1.3)
[2021-12-23 12:12] LABS: BILIRUBIN,TOTAL 0.6 mg/dL (0.2-1)
[2021-12-23] MEDS ORDERED: ACETAMINOPHEN 1000 MG/100 ML BAG IVPB ONE ×2 (13:06→13:45)
[2021-12-23] MEDS ORDERED: PIPERACILLIN/TAZOB 4.5 GM 4.5 GM in DEXTROSE 5%-WATER 100 ML IVPB ONE (13:06)
[2021-12-23] MEDS ORDERED: PIPERACILLIN/TAZOB 4.5 GM 4.5 GM/100 ML BAG IVPB ONE (13:08)
[2021-12-23] MEDS ORDERED: ACETAMINOPHEN INJECTION 100 ML IVPB ONE (13:08)
[2021-12-23] MEDS ORDERED: PIPERACILLIN/TAZOB 3.375 GM 3.375 GM in DEXTROSE 5%-WATER - 50 ML IVPB ONE (13:44)
[2021-12-23 14:02] LABS: URINE APPEARANCE TURBID; URINE BILIRUBIN NEGATIVE (NEGATIVE); URINE COLOR YELLOW; URINE GLUCOSE (UA) NEGATIVE (NEGATIVE); URINE KETONE NEGATIVE (NEGATIVE); URINE LEUK ESTERASE 3+ (NEGATIVE); URINE NITRITE POSITIVE (NEGATIVE); URINE PROTEIN TRACE (NEGATIVE); URINE UROBILINOGEN 0.2 mg/dL (0.2-1.0)
[2021-12-23] MEDS ORDERED: VANCOMYCIN 1,000 MG in DEXTROSE 5%-WATER - 250 ML IVPB ONE (14:10)
[2021-12-23] MEDS ORDERED: VANCOMYCIN 1 GRAM (PRE-DOCKED) 1,000 MG/250 ML BAG IVPB ONE (14:13)
[2021-12-23] MEDS ORDERED: SODIUM CHLORIDE 1,000 ML IV SCH (14:30)
[2021-12-23 14:40] LABS: HYALINE CASTS 3.61 /uL (0-3.1); URINE BACTERIA 3984.9 /uL (0-1359); URINE RBC 11.5 /uL (0-23.9); URINE WBC 3329.5 /uL (0-25.8)
[2021-12-23] MEDS ORDERED: ENOXAPARIN NA (PORCINE) 30 MG/0.3 ML DISP.SYRIN SQ ONE (15:29)
[2021-12-23] MEDS: ENOXAPARIN NA (PORCINE) 30 MG/0.3 ML DISP.SYRIN SQ SCH (15:32)
[2021-12-23] MEDS ORDERED: DEXTROSE 5%-WATER - 50 ML IVPB ONE (18:53)
[2021-12-23] MEDS ORDERED: PIPERACILLIN/TAZOBACTAM 3.375 GM VIAL IVPB ONE (18:53)
[2021-12-23] MEDS: PIPERACILLIN/TAZOB 3.375 GM 3.375 GM in DEXTROSE 5%-WATER - 50 ML IVPB SCH ×2 (18:56→19:09)
[2021-12-23] MEDS ORDERED: diazePAM RECTAL GEL 10 MG KIT (PRE-CALIBRATED) RC PRN (22:45)
[2021-12-24] MEDS ORDERED: PIPERACILLIN/TAZOBACTAM 3.375 GM VIAL IVPB ONE ×3 (02:27→19:00)
[2021-12-24] MEDS ORDERED: DEXTROSE 5%-WATER - 50 ML IVPB ONE ×3 (02:28→19:00)
[2021-12-24] MEDS: PIPERACILLIN/TAZOB 3.375 GM 3.375 GM in DEXTROSE 5%-WATER - 50 ML IVPB SCH ×5 (02:43→19:01)
[2021-12-24] MEDS ORDERED: lamoTRIgine 25 MG TABLET NR SCH ×2 (06:00→16:00)
[2021-12-24] MEDS ORDERED: levETIRAcetam 500 MG TABLET (FP) PO SCH (06:00)
[2021-12-24] MEDS ORDERED: lamoTRIgine 100 MG TABLET GT SCH (06:00)
[2021-12-24] MEDS ORDERED: levETIRAcetam 500 MG/5 ML ORAL SOLUTION (UNIT-DOSE CUPS) PO SCH (06:00)
[2021-12-24] MEDS ORDERED: levETIRAcetam 500 MG/5 ML ORAL SOLUTION (UNIT-DOSE CUPS) GT SCH (06:00)
[2021-12-24 09:49] LABS: BASO % 0.1 % (0-2.0); EOS % 4.4 % (0-4.5); HEMATOCRIT 33.3 % (35.4-49); HEMOGLOBIN 10.8 GM/dL (11.7-16.9); LYMPH % 6.7 % (8-40); MCH 27.9 pg (25.7-33.7); MCHC 32.5 g/dl (32.0-35.9); MEAN CELL VOLUME 85.7 fl (80-96); MEAN PLT VOLUME 9.2 fl (7.5-11.1); MONO % 12.1 % (3.8-10.2); NEUT % 76.7 % (42.8-82.8); PLATELET COUNT 135 10^3/uL (134-434); RBC 3.89 M/mm3 (4.00-5.60); RDW 15.2 % (11.9-15.9); WHITE BLOOD COUNT 5.9 K/mm3 (4.0-10.0)
[2021-12-24] MEDS ORDERED: VANCOMYCIN 1 GM in D5W (PRE-DOCKED) 1,000 MG/250 ML IVPB SCH (10:00)
[2021-12-24] MEDS ORDERED: diazePAM 2 MG TABLET GT SCH (10:00)
[2021-12-24] MEDS ORDERED: levETIRAcetam 250 MG TABLET PO SCH (10:00)
[2021-12-24] MEDS: ENOXAPARIN NA (PORCINE) 30 MG/0.3 ML DISP.SYRIN SQ SCH (10:13)
[2021-12-24 10:25] LABS: CALCIUM 7.9 mg/dL (8.5-10.1)
[2021-12-24 10:26] LABS: BLOOD UREA NITROGEN 8.2 mg/dL (7-18); MAGNESIUM 2.3 mg/dL (1.8-2.4)
[2021-12-24 10:29] LABS: CREATININE 0.4 mg/dL (0.55-1.3); PHOSPHOROUS 1.4 mg/dL (2.5-4.9)
[2021-12-24 10:30] LABS: BILIRUBIN,TOTAL 0.8 mg/dL (0.2-1)
[2021-12-24 10:34] LABS: ALBUMIN 2.4 g/dl (3.4-5.0); TOT PROT 5.5 g/dl (6.4-8.2)
[2021-12-24] MEDS ORDERED: lamiVUDine 150 MG TABLET PO ONE (10:36)
[2021-12-24] MEDS ORDERED: lamiVUDine 150 MG TABLET GT ONE (10:36)
[2021-12-24] MEDS ORDERED: ZINC OXIDE 20% TOPICAL OINTMENT 30 GM TUBE TP PRN (14:25)
[2021-12-24] MEDS ORDERED: BISACODYL 10 MG SUPP.RECT RC PRN (14:25)
[2021-12-24] MEDS ORDERED: VANCOMYCIN/WATER FOR INJ (PEG) 1,000 MG/200 ML BAG IVPB SCH (15:00)
[2021-12-24 15:22] VITALS: BMI 27.0
[2021-12-24] MEDS ORDERED: ACETAMINOPHEN 650 MG/20.3 ML ORAL SOLUTION (CUPS) GT PRN (15:23)
[2021-12-24] MEDS ORDERED: lamiVUDine 10 MG/1 ML BULK BOTTLE GT SCH (16:00)
[2021-12-24] MEDS: levETIRAcetam 500 MG/5 ML ORAL SOLUTION (UNIT-DOSE CUPS) GT SCH ×2 (16:12→21:45)
[2021-12-24] MEDS ORDERED: ALBUTEROL SO4 2.5/IPRATROPIUM 0.5 INH SOL 3 ML VIAL.NEB. NEB SCH (18:00)
[2021-12-24] MEDS ORDERED: PIPERACILLIN/TAZOB 3.375 GM 3.375 GM in DEXTROSE 5%-WATER - 50 ML IVPB SCH (18:00)
[2021-12-24] MEDS: ALBUTEROL SO4 2.5/IPRATROPIUM 0.5 INH SOL 3 ML VIAL.NEB. NEB SCH (20:47)
[2021-12-24] MEDS: BUDESONIDE 0.5 MG/2 ML INH SUSP VIAL NEB SCH (20:48)
[2021-12-24] MEDS: lamiVUDine 10 MG/1 ML BULK BOTTLE GT SCH ×2 (21:45→21:49)
[2021-12-24] MEDS: cloBAZam 10 MG TABLET GT SCH (21:46)
[2021-12-24] MEDS: MAGNESIUM HYDROX 2400MG/30ML ORAL SUSPENSION 30 ML CUP GT SCH (21:46)
[2021-12-24] MEDS: FOLIC ACID 1 MG TABLET (FP) GT SCH (21:46)
[2021-12-24] MEDS: SENNOSIDES 8.8 MG/5 ML BULK BOTTLE PO SCH (22:02)
[2021-12-25] MEDS: METOPROLOL TARTRATE 50 MG TABLET (FP) PEG SCH ×3 (00:52→21:57)
[2021-12-25] MEDS ORDERED: DEXTROSE 5%-WATER - 50 ML IVPB ONE ×3 (01:35→17:03)
[2021-12-25] MEDS ORDERED: PIPERACILLIN/TAZOBACTAM 3.375 GM VIAL IVPB ONE ×3 (01:35→17:03)
[2021-12-25] MEDS: PIPERACILLIN/TAZOB 3.375 GM 3.375 GM in DEXTROSE 5%-WATER - 50 ML IVPB SCH ×3 (02:31→17:17)
[2021-12-25] MEDS: levETIRAcetam 500 MG/5 ML ORAL SOLUTION (UNIT-DOSE CUPS) GT SCH ×3 (05:26→21:00)
[2021-12-25] MEDS: ALBUTEROL SO4 2.5/IPRATROPIUM 0.5 INH SOL 3 ML VIAL.NEB. NEB SCH ×4 (08:11→21:39)
[2021-12-25] MEDS: BUDESONIDE 0.5 MG/2 ML INH SUSP VIAL NEB SCH ×2 (08:11→21:39)
[2021-12-25 09:28] LABS: BASO % 0.2 % (0-2.0); EOS % 5.6 % (0-4.5); HEMATOCRIT 34.9 % (35.4-49); HEMOGLOBIN 11.6 GM/dL (11.7-16.9); LYMPH % 13.4 % (8-40); MCH 27.7 pg (25.7-33.7); MCHC 33.1 g/dl (32.0-35.9); MEAN CELL VOLUME 83.7 fl (80-96); MEAN PLT VOLUME 9.3 fl (7.5-11.1); MONO % 16.5 % (3.8-10.2); NEUT % 64.3 % (42.8-82.8); PLATELET COUNT 185 10^3/uL (134-434); RBC 4.17 M/mm3 (4.00-5.60); RDW 14.9 % (11.9-15.9); WHITE BLOOD COUNT 5.9 K/mm3 (4.0-10.0)
[2021-12-25] MEDS ORDERED: POLYETHYLENE GLYCOL 3350 119 GM BTL GT SCH (10:00)
[2021-12-25] MEDS ORDERED: lamiVUDine 10 MG/1 ML BULK BOTTLE GT SCH ×2 (10:00)
[2021-12-25] MEDS ORDERED: lamoTRIgine 100 MG TABLET GT SCH ×2 (10:00→14:00)
[2021-12-25] MEDS ORDERED: MULTIVIT-MINERALS ORAL LIQUID PO SCH (10:00)
[2021-12-25 10:09] LABS: CALCIUM 8.8 mg/dL (8.5-10.1)
[2021-12-25 10:10] LABS: ALBUMIN 2.5 g/dl (3.4-5.0); BLOOD UREA NITROGEN 6.1 mg/dL (7-18); MAGNESIUM 1.9 mg/dL (1.8-2.4)
[2021-12-25 10:13] LABS: CREATININE 0.4 mg/dL (0.55-1.3)
[2021-12-25 10:14] LABS: BILIRUBIN,TOTAL 0.6 mg/dL (0.2-1); TOT PROT 6.2 g/dl (6.4-8.2)
[2021-12-25] MEDS: MAGNESIUM HYDROX 2400MG/30ML ORAL SUSPENSION 30 ML CUP GT SCH ×2 (10:51→21:57)
[2021-12-25] MEDS: MULTIVIT-MINERALS ORAL LIQUID GT SCH (10:51)
[2021-12-25] MEDS: cloBAZam 10 MG TABLET GT SCH ×3 (10:52→22:24)
[2021-12-25] MEDS: amLODIPine BESYLATE 5 MG TABLET (FP) GT SCH (10:52)
[2021-12-25] MEDS: FAMOTIDINE 20 MG TABLET PEG SCH (10:54)
[2021-12-25] MEDS: LAMOTRIGINE PO SCH (10:55)
[2021-12-25] MEDS: LORATADINE 10 MG TABLET GT SCH (10:57)
[2021-12-25] MEDS: ENOXAPARIN NA (PORCINE) 30 MG/0.3 ML DISP.SYRIN SQ SCH (11:16)
[2021-12-25] MEDS: NAPH,MB-DB/K PH,MBDB POWDER PACKET GT SCH ×2 (13:08→21:58)
[2021-12-25] MEDS: POLYETHYLENE GLYCOL (HEALTHYLAX) 3350 17 GM PACKET GT SCH (14:34)
[2021-12-25] MEDS: LAMOTRIGINE 100 MG, LAMOTRIGINE 50 MG PO SCH ×2 (16:21→21:59)
[2021-12-25] MEDS: FOLIC ACID 1 MG TABLET (FP) GT SCH (21:58)
[2021-12-25] MEDS: SENNOSIDES 8.8 MG/5 ML BULK BOTTLE PO SCH (22:25)
[2021-12-26] MEDS ORDERED: DEXTROSE 5%-WATER - 50 ML IVPB ONE ×3 (01:02→16:56)
[2021-12-26] MEDS ORDERED: PIPERACILLIN/TAZOBACTAM 3.375 GM VIAL IVPB ONE ×3 (01:02→16:56)
[2021-12-26] MEDS: PIPERACILLIN/TAZOB 3.375 GM 3.375 GM in DEXTROSE 5%-WATER - 50 ML IVPB SCH ×3 (02:01→17:25)
[2021-12-26] MEDS: levETIRAcetam 500 MG/5 ML ORAL SOLUTION (UNIT-DOSE CUPS) GT SCH ×3 (05:27→21:22)
[2021-12-26] MEDS: BUDESONIDE 0.5 MG/2 ML INH SUSP VIAL NEB SCH ×2 (08:15→20:45)
[2021-12-26] MEDS: ALBUTEROL SO4 2.5/IPRATROPIUM 0.5 INH SOL 3 ML VIAL.NEB. NEB SCH ×4 (08:15→20:45)
[2021-12-26] MEDS: ENOXAPARIN NA (PORCINE) 30 MG/0.3 ML DISP.SYRIN SQ SCH (10:31)
[2021-12-26] MEDS: METOPROLOL TARTRATE 50 MG TABLET (FP) PEG SCH ×2 (10:31→21:30)
[2021-12-26] MEDS: LORATADINE 10 MG TABLET GT SCH (10:31)
[2021-12-26] MEDS: amLODIPine BESYLATE 5 MG TABLET (FP) GT SCH (10:31)
[2021-12-26] MEDS: FAMOTIDINE 20 MG TABLET PEG SCH (10:31)
[2021-12-26] MEDS: cloBAZam 10 MG TABLET GT SCH ×2 (10:31→21:33)
[2021-12-26] MEDS: POLYETHYLENE GLYCOL (HEALTHYLAX) 3350 17 GM PACKET GT SCH (10:33)
[2021-12-26] MEDS: MAGNESIUM HYDROX 2400MG/30ML ORAL SUSPENSION 30 ML CUP GT SCH ×2 (10:33→21:31)
[2021-12-26] MEDS: MULTIVIT-MINERALS ORAL LIQUID GT SCH (10:34)
[2021-12-26] MEDS: LAMOTRIGINE PO SCH (10:35)
[2021-12-26] MEDS: LAMOTRIGINE 100 MG, LAMOTRIGINE 50 MG PO SCH ×2 (13:59→21:32)
[2021-12-26 16:52] LABS: BASO % 0.3 % (0-2.0); EOS % 8.6 % (0-4.5); HEMATOCRIT 37.6 % (35.4-49); HEMOGLOBIN 12.3 GM/dL (11.7-16.9); LYMPH % 22.8 % (8-40); MCHC 32.8 g/dl (32.0-35.9); MEAN CELL VOLUME 85.3 fl (80-96); MEAN PLT VOLUME 8.6 fl (7.5-11.1); MONO % 21.9 % (3.8-10.2); NEUT % 46.4 % (42.8-82.8); PLATELET COUNT 179 10^3/uL (134-434); RDW 14.9 % (11.9-15.9); WHITE BLOOD COUNT 5.1 K/mm3 (4.0-10.0)
[2021-12-26 17:33] LABS: ANISOCYTOSIS 1+; MACROCYTOSIS 1+
[2021-12-26 17:38] LABS: ALBUMIN 2.6 g/dl (3.4-5.0); BILIRUBIN,TOTAL 0.4 mg/dL (0.2-1); CALCIUM 8.6 mg/dL (8.5-10.1); CREATININE 0.3 mg/dL (0.55-1.3); MAGNESIUM 1.7 mg/dL (1.8-2.4); PHOSPHOROUS 3.5 mg/dL (2.5-4.9); TOT PROT 6.5 g/dl (6.4-8.2)
[2021-12-26 17:40] LABS: PLATELET ESTIMATE ADEQUATE
[2021-12-26] MEDS: FOLIC ACID 1 MG TABLET (FP) GT SCH (21:31)
[2021-12-26] MEDS: SENNOSIDES 8.8 MG/5 ML BULK BOTTLE PO SCH (21:32)
[2021-12-27] MEDS ORDERED: PIPERACILLIN/TAZOBACTAM 3.375 GM VIAL IVPB ONE ×3 (01:50→16:31)
[2021-12-27] MEDS ORDERED: DEXTROSE 5%-WATER - 50 ML IVPB ONE (01:50)
[2021-12-27] MEDS: PIPERACILLIN/TAZOB 3.375 GM 3.375 GM in DEXTROSE 5%-WATER - 50 ML IVPB SCH ×3 (02:06→17:00)
[2021-12-27] MEDS: levETIRAcetam 500 MG/5 ML ORAL SOLUTION (UNIT-DOSE CUPS) GT SCH ×3 (06:17→21:26)
[2021-12-27] MEDS: BUDESONIDE 0.5 MG/2 ML INH SUSP VIAL NEB SCH ×2 (07:54→20:34)
[2021-12-27] MEDS: ALBUTEROL SO4 2.5/IPRATROPIUM 0.5 INH SOL 3 ML VIAL.NEB. NEB SCH ×4 (07:54→20:34)
[2021-12-27] MEDS: ENOXAPARIN NA (PORCINE) 30 MG/0.3 ML DISP.SYRIN SQ SCH (10:17)
[2021-12-27] MEDS: MULTIVIT-MINERALS ORAL LIQUID GT SCH (10:17)
[2021-12-27] MEDS: FAMOTIDINE 20 MG TABLET PEG SCH (10:18)
[2021-12-27] MEDS: amLODIPine BESYLATE 5 MG TABLET (FP) GT SCH (10:18)
[2021-12-27] MEDS: LORATADINE 10 MG TABLET GT SCH (10:18)
[2021-12-27] MEDS: METOPROLOL TARTRATE 50 MG TABLET (FP) PEG SCH ×2 (10:18→21:26)
[2021-12-27] MEDS: cloBAZam 10 MG TABLET GT SCH ×2 (10:18→21:26)
[2021-12-27] MEDS: MAGNESIUM HYDROX 2400MG/30ML ORAL SUSPENSION 30 ML CUP GT SCH ×2 (10:19→21:26)
[2021-12-27] MEDS: POLYETHYLENE GLYCOL (HEALTHYLAX) 3350 17 GM PACKET GT SCH (10:19)
[2021-12-27] MEDS: LAMOTRIGINE PO SCH ×2 (10:20→11:19)
[2021-12-27 10:27] LABS: BASO % 0.1 % (0-2.0); EOS % 2.9 % (0-4.5); HEMATOCRIT 36.8 % (35.4-49); HEMOGLOBIN 12.4 GM/dL (11.7-16.9); LYMPH % 14.3 % (8-40); MCH 27.8 pg (25.7-33.7); MCHC 33.6 g/dl (32.0-35.9); MEAN CELL VOLUME 82.8 fl (80-96); MEAN PLT VOLUME 8.3 fl (7.5-11.1); NEUT % 65.7 % (42.8-82.8); PLATELET COUNT 234 10^3/uL (134-434); RBC 4.44 M/mm3 (4.00-5.60); RDW 14.7 % (11.9-15.9); WHITE BLOOD COUNT 6.7 K/mm3 (4.0-10.0)
[2021-12-27 10:54] LABS: CALCIUM 8.6 mg/dL (8.5-10.1)
[2021-12-27 10:55] LABS: ALBUMIN 2.6 g/dl (3.4-5.0); BLOOD UREA NITROGEN 7.7 mg/dL (7-18); MAGNESIUM 1.9 mg/dL (1.8-2.4)
[2021-12-27 10:58] LABS: CREATININE 0.4 mg/dL (0.55-1.3)
[2021-12-27 10:59] LABS: BILIRUBIN,TOTAL 0.4 mg/dL (0.2-1)
[2021-12-27] MEDS: LAMOTRIGINE 100 MG, LAMOTRIGINE 50 MG PO SCH ×2 (13:41→21:26)
[2021-12-27] MEDS: FOLIC ACID 1 MG TABLET (FP) GT SCH (21:26)
[2021-12-27] MEDS: SENNOSIDES 8.8 MG/5 ML BULK BOTTLE PO SCH (21:27)
[2021-12-28] MEDS ORDERED: DEXTROSE 5%-WATER - 50 ML IVPB ONE ×2 (02:29→18:40)
[2021-12-28] MEDS ORDERED: PIPERACILLIN/TAZOBACTAM 3.375 GM VIAL IVPB ONE ×3 (02:29→18:40)
[2021-12-28] MEDS: PIPERACILLIN/TAZOB 3.375 GM 3.375 GM in DEXTROSE 5%-WATER - 50 ML IVPB SCH ×4 (02:31→18:42)
[2021-12-28] MEDS: levETIRAcetam 500 MG/5 ML ORAL SOLUTION (UNIT-DOSE CUPS) GT SCH ×3 (06:08→21:18)
[2021-12-28] MEDS: ALBUTEROL SO4 2.5/IPRATROPIUM 0.5 INH SOL 3 ML VIAL.NEB. NEB SCH ×4 (08:00→20:45)
[2021-12-28] MEDS: BUDESONIDE 0.5 MG/2 ML INH SUSP VIAL NEB SCH ×2 (08:10→20:45)
[2021-12-28] MEDS: FAMOTIDINE 20 MG TABLET PEG SCH (10:09)
[2021-12-28] MEDS: POLYETHYLENE GLYCOL (HEALTHYLAX) 3350 17 GM PACKET GT SCH (10:09)
[2021-12-28] MEDS: METOPROLOL TARTRATE 50 MG TABLET (FP) PEG SCH ×2 (10:09→21:20)
[2021-12-28] MEDS: cloBAZam 10 MG TABLET GT SCH ×2 (10:09→21:21)
[2021-12-28] MEDS: LORATADINE 10 MG TABLET GT SCH (10:09)
[2021-12-28] MEDS: amLODIPine BESYLATE 5 MG TABLET (FP) GT SCH (10:09)
[2021-12-28] MEDS: ENOXAPARIN NA (PORCINE) 30 MG/0.3 ML DISP.SYRIN SQ SCH (10:09)
[2021-12-28] MEDS: MULTIVIT-MINERALS ORAL LIQUID GT SCH (10:10)
[2021-12-28] MEDS: MAGNESIUM HYDROX 2400MG/30ML ORAL SUSPENSION 30 ML CUP GT SCH ×2 (10:38→21:18)
[2021-12-28] MEDS: LAMOTRIGINE PO SCH (12:05)
[2021-12-28 13:15] LABS: BASO % 0.2 % (0-2.0); EOS % 5.7 % (0-4.5); HEMATOCRIT 31.8 % (35.4-49); HEMOGLOBIN 10.7 GM/dL (11.7-16.9); LYMPH % 21.7 % (8-40); MCHC 33.6 g/dl (32.0-35.9); MEAN CELL VOLUME 83.2 fl (80-96); MEAN PLT VOLUME 8.2 fl (7.5-11.1); MONO % 16.4 % (3.8-10.2); PLATELET COUNT 228 10^3/uL (134-434); RBC 3.82 M/mm3 (4.00-5.60); RDW 14.8 % (11.9-15.9); WHITE BLOOD COUNT 5.9 K/mm3 (4.0-10.0)
[2021-12-28 13:33] LABS: ALBUMIN 2.5 g/dl (3.4-5.0); CALCIUM 8.6 mg/dL (8.5-10.1)
[2021-12-28 13:36] LABS: CREATININE 0.5 mg/dL (0.55-1.3)
[2021-12-28 13:38] LABS: BILIRUBIN,TOTAL 0.3 mg/dL (0.2-1); TOT PROT 6.3 g/dl (6.4-8.2)
[2021-12-28] MEDS: LAMOTRIGINE 100 MG, LAMOTRIGINE 50 MG PO SCH ×2 (15:37→21:21)
[2021-12-28] MEDS: FOLIC ACID 1 MG TABLET (FP) GT SCH (21:20)
[2021-12-28] MEDS: SENNOSIDES 8.8 MG/5 ML BULK BOTTLE PO SCH (21:21)
[2021-12-29] MEDS ORDERED: PIPERACILLIN/TAZOBACTAM 3.375 GM VIAL IVPB ONE ×3 (01:18→16:38)
[2021-12-29] MEDS ORDERED: DEXTROSE 5%-WATER - 50 ML IVPB ONE ×3 (01:18→16:38)
[2021-12-29] MEDS: PIPERACILLIN/TAZOB 3.375 GM 3.375 GM in DEXTROSE 5%-WATER - 50 ML IVPB SCH ×3 (01:22→17:34)
[2021-12-29] MEDS: levETIRAcetam 500 MG/5 ML ORAL SOLUTION (UNIT-DOSE CUPS) GT SCH ×3 (05:20→19:56)
[2021-12-29] MEDS: BUDESONIDE 0.5 MG/2 ML INH SUSP VIAL NEB SCH ×2 (08:54→20:38)
[2021-12-29] MEDS: ALBUTEROL SO4 2.5/IPRATROPIUM 0.5 INH SOL 3 ML VIAL.NEB. NEB SCH ×3 (08:56→16:50)
[2021-12-29] MEDS: ENOXAPARIN NA (PORCINE) 30 MG/0.3 ML DISP.SYRIN SQ SCH (09:59)
[2021-12-29] MEDS: POLYETHYLENE GLYCOL (HEALTHYLAX) 3350 17 GM PACKET GT SCH (09:59)
[2021-12-29] MEDS: MULTIVIT-MINERALS ORAL LIQUID GT SCH (10:01)
[2021-12-29] MEDS: LORATADINE 10 MG TABLET GT SCH (10:02)
[2021-12-29] MEDS: LAMOTRIGINE PO SCH (10:02)
[2021-12-29] MEDS: METOPROLOL TARTRATE 50 MG TABLET (FP) PEG SCH ×2 (10:03→21:12)
[2021-12-29] MEDS: amLODIPine BESYLATE 5 MG TABLET (FP) GT SCH (10:06)
[2021-12-29] MEDS: MAGNESIUM HYDROX 2400MG/30ML ORAL SUSPENSION 30 ML CUP GT SCH ×2 (10:06→21:11)
[2021-12-29] MEDS: cloBAZam 10 MG TABLET GT SCH ×2 (10:07→21:11)
[2021-12-29] MEDS: FAMOTIDINE 20 MG TABLET PEG SCH (10:07)
[2021-12-29 11:12] LABS: BASO % 0.2 % (0-2.0); EOS % 5.4 % (0-4.5); HEMATOCRIT 32.5 % (35.4-49); HEMOGLOBIN 10.7 GM/dL (11.7-16.9); LYMPH % 23.3 % (8-40); MCH 27.7 pg (25.7-33.7); MCHC 32.9 g/dl (32.0-35.9); MEAN CELL VOLUME 84.1 fl (80-96); MEAN PLT VOLUME 8.4 fl (7.5-11.1); NEUT % 58.1 % (42.8-82.8); PLATELET COUNT 249 10^3/uL (134-434); RBC 3.87 M/mm3 (4.00-5.60); RDW 14.8 % (11.9-15.9); WHITE BLOOD COUNT 5.9 K/mm3 (4.0-10.0)
[2021-12-29 11:15] LABS: INR 1.04 (0.83-1.09)
[2021-12-29 11:59] LABS: ALBUMIN 2.6 g/dl (3.4-5.0); BLOOD UREA NITROGEN 8.6 mg/dL (7-18); CALCIUM 8.8 mg/dL (8.5-10.1); MAGNESIUM 2.3 mg/dL (1.8-2.4)
[2021-12-29 12:02] LABS: CREATININE 0.5 mg/dL (0.55-1.3)
[2021-12-29 12:03] LABS: BILIRUBIN,TOTAL 0.4 mg/dL (0.2-1)
[2021-12-29 12:04] LABS: TOT PROT 6.6 g/dl (6.4-8.2)
[2021-12-29] MEDS: LAMOTRIGINE 100 MG, LAMOTRIGINE 50 MG PO SCH ×2 (14:43→21:12)
[2021-12-29] MEDS ORDERED: AMINO ACIDS 4.25%/D5W 1,000 ML IV SCH (15:15)
[2021-12-29] MEDS: SENNOSIDES 8.8 MG/5 ML BULK BOTTLE PO SCH (21:11)
[2021-12-29] MEDS: FOLIC ACID 1 MG TABLET (FP) GT SCH (21:11)
[2021-12-30] MEDS ORDERED: DEXTROSE 5%-WATER - 50 ML IVPB ONE ×3 (01:29→18:24)
[2021-12-30] MEDS ORDERED: PIPERACILLIN/TAZOBACTAM 3.375 GM VIAL IVPB ONE ×3 (01:29→18:24)
[2021-12-30] MEDS: PIPERACILLIN/TAZOB 3.375 GM 3.375 GM in DEXTROSE 5%-WATER - 50 ML IVPB SCH ×3 (01:35→18:48)
[2021-12-30] MEDS: levETIRAcetam 500 MG/5 ML ORAL SOLUTION (UNIT-DOSE CUPS) GT SCH ×3 (05:28→23:17)
[2021-12-30] MEDS: BUDESONIDE 0.5 MG/2 ML INH SUSP VIAL NEB SCH ×2 (07:41→20:20)
[2021-12-30 08:51] LABS: HEMATOCRIT 35.2 % (35.4-49); HEMOGLOBIN 11.6 GM/dL (11.7-16.9); MCH 27.7 pg (25.7-33.7); MCHC 32.8 g/dl (32.0-35.9); MEAN CELL VOLUME 84.4 fl (80-96); MEAN PLT VOLUME 7.9 fl (7.5-11.1); PLATELET COUNT 268 10^3/uL (134-434); RBC 4.17 M/mm3 (4.00-5.60); RDW 15.1 % (11.9-15.9); WHITE BLOOD COUNT 4.3 K/mm3 (4.0-10.0)
[2021-12-30 09:25] LABS: CALCIUM 8.8 mg/dL (8.5-10.1)
[2021-12-30 09:26] LABS: ALBUMIN 2.8 g/dl (3.4-5.0); BLOOD UREA NITROGEN 8.6 mg/dL (7-18); MAGNESIUM 2.5 mg/dL (1.8-2.4)
[2021-12-30 09:31] LABS: TOT PROT 6.9 g/dl (6.4-8.2)
[2021-12-30 09:33] LABS: CREATININE 0.4 mg/dL (0.55-1.3)
[2021-12-30 09:35] LABS: BILIRUBIN,TOTAL 0.3 mg/dL (0.2-1)
[2021-12-30 09:58] LABS: ANISOCYTOSIS 0; HELMET CELLS 0; HOWELL-JOLLY BODIES 0; MACROCYTOSIS 0; OVALOCYTE 0; ROULEAU 0; SICKELED CELLS 0; TARGET CELLS 0; TEAR DROP CELLS 0; TOXIC GRANULATION 0
[2021-12-30] MEDS: MAGNESIUM HYDROX 2400MG/30ML ORAL SUSPENSION 30 ML CUP GT SCH ×2 (11:13→23:17)
[2021-12-30] MEDS: POLYETHYLENE GLYCOL (HEALTHYLAX) 3350 17 GM PACKET GT SCH (11:13)
[2021-12-30] MEDS: MULTIVIT-MINERALS ORAL LIQUID GT SCH (11:14)
[2021-12-30] MEDS: LORATADINE 10 MG TABLET GT SCH (11:15)
[2021-12-30] MEDS: ENOXAPARIN NA (PORCINE) 30 MG/0.3 ML DISP.SYRIN SQ SCH (11:15)
[2021-12-30] MEDS: amLODIPine BESYLATE 5 MG TABLET (FP) GT SCH (11:15)
[2021-12-30] MEDS: FAMOTIDINE 20 MG TABLET PEG SCH (11:15)
[2021-12-30] MEDS: METOPROLOL TARTRATE 50 MG TABLET (FP) PEG SCH ×2 (11:15→23:17)
[2021-12-30] MEDS: cloBAZam 10 MG TABLET GT SCH ×2 (11:15→23:17)
[2021-12-30] MEDS: LAMOTRIGINE PO SCH (11:17)
[2021-12-30 11:30] LABS: INR 1.07 (0.83-1.09); PROTHROMBIN TIME (PATIENT) 12.3 SEC (9.7-13.0)
[2021-12-30] MEDS: LAMOTRIGINE 100 MG, LAMOTRIGINE 50 MG PO SCH ×2 (14:18→23:18)
[2021-12-30] MEDS: FOLIC ACID 1 MG TABLET (FP) GT SCH (23:17)
[2021-12-30] MEDS: SENNOSIDES 8.8 MG/5 ML BULK BOTTLE PO SCH (23:18)
[2021-12-30] MEDS: HEPARIN NA (PORCINE) 5,000 UNITS/ML 1ML VIAL SQ SCH (23:18)
[2021-12-31] MEDS ORDERED: DEXTROSE 5%-WATER - 50 ML IVPB ONE ×2 (02:49→09:56)
[2021-12-31] MEDS ORDERED: PIPERACILLIN/TAZOBACTAM 3.375 GM VIAL IVPB ONE ×3 (02:49→17:47)
[2021-12-31] MEDS: PIPERACILLIN/TAZOB 3.375 GM 3.375 GM in DEXTROSE 5%-WATER - 50 ML IVPB SCH ×3 (02:50→18:15)
[2021-12-31] MEDS: levETIRAcetam 500 MG/5 ML ORAL SOLUTION (UNIT-DOSE CUPS) GT SCH ×3 (07:17→21:48)
[2021-12-31] MEDS: BUDESONIDE 0.5 MG/2 ML INH SUSP VIAL NEB SCH ×2 (07:45→20:35)
[2021-12-31] MEDS: cloBAZam 10 MG TABLET GT SCH ×2 (10:17→21:51)
[2021-12-31] MEDS: METOPROLOL TARTRATE 50 MG TABLET (FP) PEG SCH ×2 (10:17→21:50)
[2021-12-31] MEDS: POLYETHYLENE GLYCOL (HEALTHYLAX) 3350 17 GM PACKET GT SCH (10:17)
[2021-12-31] MEDS: amLODIPine BESYLATE 5 MG TABLET (FP) GT SCH (10:17)
[2021-12-31] MEDS: FAMOTIDINE 20 MG TABLET PEG SCH (10:17)
[2021-12-31] MEDS: LORATADINE 10 MG TABLET GT SCH (10:17)
[2021-12-31] MEDS: MULTIVIT-MINERALS ORAL LIQUID GT SCH (10:18)
[2021-12-31] MEDS: HEPARIN NA (PORCINE) 5,000 UNITS/ML 1ML VIAL SQ SCH ×2 (10:18→21:49)
[2021-12-31] MEDS: MAGNESIUM HYDROX 2400MG/30ML ORAL SUSPENSION 30 ML CUP GT SCH ×2 (10:20→21:48)
[2021-12-31] MEDS: LAMOTRIGINE PO SCH (10:20)
[2021-12-31 10:52] LABS: HEMATOCRIT 32.6 % (35.4-49); HEMOGLOBIN 10.9 GM/dL (11.7-16.9); MCH 27.9 pg (25.7-33.7); MCHC 33.5 g/dl (32.0-35.9); MEAN CELL VOLUME 83.3 fl (80-96); MEAN PLT VOLUME 7.5 fl (7.5-11.1); PLATELET COUNT 334 10^3/uL (134-434); RBC 3.92 M/mm3 (4.00-5.60); WHITE BLOOD COUNT 5.2 K/mm3 (4.0-10.0)
[2021-12-31 11:23] LABS: ALBUMIN 2.8 g/dl (3.4-5.0); CALCIUM 8.9 mg/dL (8.5-10.1); MAGNESIUM 2.4 mg/dL (1.8-2.4)
[2021-12-31 11:26] LABS: CREATININE 0.4 mg/dL (0.55-1.3)
[2021-12-31 11:27] LABS: BILIRUBIN,TOTAL 0.7 mg/dL (0.2-1); TOT PROT 6.9 g/dl (6.4-8.2)
[2021-12-31 13:10] LABS: ANISOCYTOSIS 1+; MACROCYTOSIS 0; OVALOCYTE 2+
[2021-12-31] MEDS: LAMOTRIGINE 100 MG, LAMOTRIGINE 50 MG PO SCH ×2 (14:48→21:49)
[2021-12-31] MEDS: FOLIC ACID 1 MG TABLET (FP) GT SCH (21:49)
[2021-12-31] MEDS: SENNOSIDES 8.8 MG/5 ML BULK BOTTLE PO SCH (21:49)
[2022-01-01] MEDS ORDERED: DEXTROSE 5%-WATER - 50 ML IVPB ONE ×3 (02:20→17:04)
[2022-01-01] MEDS ORDERED: PIPERACILLIN/TAZOBACTAM 3.375 GM VIAL IVPB ONE ×3 (02:20→17:04)
[2022-01-01] MEDS: PIPERACILLIN/TAZOB 3.375 GM 3.375 GM in DEXTROSE 5%-WATER - 50 ML IVPB SCH ×3 (02:26→17:06)
[2022-01-01] MEDS: levETIRAcetam 500 MG/5 ML ORAL SOLUTION (UNIT-DOSE CUPS) GT SCH ×3 (06:23→21:38)
[2022-01-01] MEDS: BUDESONIDE 0.5 MG/2 ML INH SUSP VIAL NEB SCH ×2 (07:39→20:23)
[2022-01-01] MEDS: LORATADINE 10 MG TABLET GT SCH (10:42)
[2022-01-01] MEDS: LAMOTRIGINE PO SCH (10:42)
[2022-01-01] MEDS: METOPROLOL TARTRATE 50 MG TABLET (FP) PEG SCH ×2 (10:42→21:38)
[2022-01-01] MEDS: FAMOTIDINE 20 MG TABLET PEG SCH (10:42)
[2022-01-01] MEDS: amLODIPine BESYLATE 5 MG TABLET (FP) GT SCH (10:42)
[2022-01-01] MEDS: HEPARIN NA (PORCINE) 5,000 UNITS/ML 1ML VIAL SQ SCH ×2 (10:42→21:38)
[2022-01-01] MEDS: MAGNESIUM HYDROX 2400MG/30ML ORAL SUSPENSION 30 ML CUP GT SCH ×2 (10:42→21:37)
[2022-01-01] MEDS: cloBAZam 10 MG TABLET GT SCH ×2 (10:42→21:38)
[2022-01-01] MEDS: MULTIVIT-MINERALS ORAL LIQUID GT SCH (10:43)
[2022-01-01] MEDS: POLYETHYLENE GLYCOL (HEALTHYLAX) 3350 17 GM PACKET GT SCH (10:43)
[2022-01-01] MEDS: SCOPOLAMINE HYDROBROMIDE 1 PATCH PATCH.TD72 TD SCH (11:59)
[2022-01-01 12:17] LABS: BASO % 0.1 % (0-2.0); EOS % 3.9 % (0-4.5); HEMATOCRIT 33.5 % (35.4-49); HEMOGLOBIN 10.9 GM/dL (11.7-16.9); LYMPH % 27.6 % (8-40); MCH 27.4 pg (25.7-33.7); MCHC 32.7 g/dl (32.0-35.9); MEAN CELL VOLUME 83.9 fl (80-96); MEAN PLT VOLUME 7.1 fl (7.5-11.1); MONO % 8.5 % (3.8-10.2); NEUT % 59.9 % (42.8-82.8); PLATELET COUNT 333 10^3/uL (134-434); RBC 3.99 M/mm3 (4.00-5.60); RDW 14.7 % (11.9-15.9); WHITE BLOOD COUNT 4.7 K/mm3 (4.0-10.0)
[2022-01-01 12:38] LABS: CALCIUM 8.6 mg/dL (8.5-10.1)
[2022-01-01 12:39] LABS: ALBUMIN 2.6 g/dl (3.4-5.0); BLOOD UREA NITROGEN 7.8 mg/dL (7-18); MAGNESIUM 2.2 mg/dL (1.8-2.4)
[2022-01-01 12:42] LABS: CREATININE 0.6 mg/dL (0.55-1.3)
[2022-01-01 12:44] LABS: BILIRUBIN,TOTAL 0.5 mg/dL (0.2-1); TOT PROT 6.7 g/dl (6.4-8.2)
[2022-01-01] MEDS: LAMOTRIGINE 100 MG, LAMOTRIGINE 50 MG PO SCH ×2 (15:14→22:36)
[2022-01-01] MEDS ORDERED: INSULIN (LEVEMIR) 100 UNITS/ML UNITS SQ ONE (21:13)
[2022-01-01] MEDS ORDERED: INSULIN (NOVOLOG) ASPART 100 UNITS/ML 10ML VIAL ONE (21:13)
[2022-01-01] MEDS: SENNOSIDES 8.8 MG/5 ML BULK BOTTLE PO SCH (21:37)
[2022-01-01] MEDS: FOLIC ACID 1 MG TABLET (FP) GT SCH (21:38)
[2022-01-02] MEDS ORDERED: PIPERACILLIN/TAZOBACTAM 3.375 GM VIAL IVPB ONE ×2 (01:56→08:49)
[2022-01-02] MEDS ORDERED: DEXTROSE 5%-WATER - 50 ML IVPB ONE ×2 (01:56→08:49)
[2022-01-02] MEDS: PIPERACILLIN/TAZOB 3.375 GM 3.375 GM in DEXTROSE 5%-WATER - 50 ML IVPB SCH (02:14)
[2022-01-02] MEDS: levETIRAcetam 500 MG/5 ML ORAL SOLUTION (UNIT-DOSE CUPS) GT SCH ×3 (06:23→20:19)
[2022-01-02] MEDS: BUDESONIDE 0.5 MG/2 ML INH SUSP VIAL NEB SCH ×2 (07:20→20:21)
[2022-01-02 08:58] LABS: BASO % 0.3 % (0-2.0); HEMATOCRIT 35.1 % (35.4-49); HEMOGLOBIN 11.9 GM/dL (11.7-16.9); LYMPH % 23.7 % (8-40); MCH 28.4 pg (25.7-33.7); MCHC 33.9 g/dl (32.0-35.9); MEAN CELL VOLUME 83.6 fl (80-96); MONO % 7.5 % (3.8-10.2); NEUT % 66.5 % (42.8-82.8); PLATELET COUNT 365 10^3/uL (134-434); RBC 4.19 M/mm3 (4.00-5.60); RDW 15.1 % (11.9-15.9); WHITE BLOOD COUNT 5.6 K/mm3 (4.0-10.0)
[2022-01-02 09:11] LABS: ALBUMIN 2.8 g/dl (3.4-5.0); BLOOD UREA NITROGEN 7.1 mg/dL (7-18); CALCIUM 8.8 mg/dL (8.5-10.1); MAGNESIUM 2.4 mg/dL (1.8-2.4)
[2022-01-02 09:14] LABS: CREATININE 0.5 mg/dL (0.55-1.3)
[2022-01-02 09:16] LABS: BILIRUBIN,TOTAL 0.3 mg/dL (0.2-1); TOT PROT 7.3 g/dl (6.4-8.2)
[2022-01-02] MEDS: POLYETHYLENE GLYCOL (HEALTHYLAX) 3350 17 GM PACKET GT SCH (10:41)
[2022-01-02] MEDS: HEPARIN NA (PORCINE) 5,000 UNITS/ML 1ML VIAL SQ SCH ×2 (10:42→21:30)
[2022-01-02] MEDS: amLODIPine BESYLATE 5 MG TABLET (FP) GT SCH (10:43)
[2022-01-02] MEDS: LORATADINE 10 MG TABLET GT SCH (10:43)
[2022-01-02] MEDS: METOPROLOL TARTRATE 50 MG TABLET (FP) PEG SCH ×2 (10:44→21:33)
[2022-01-02] MEDS: FAMOTIDINE 20 MG TABLET PEG SCH (10:45)
[2022-01-02] MEDS: cloBAZam 10 MG TABLET GT SCH ×2 (10:45→21:36)
[2022-01-02] MEDS: MULTIVIT-MINERALS ORAL LIQUID GT SCH (10:46)
[2022-01-02] MEDS: LAMOTRIGINE PO SCH (10:46)
[2022-01-02] MEDS: MAGNESIUM HYDROX 2400MG/30ML ORAL SUSPENSION 30 ML CUP GT SCH ×2 (10:47→21:33)
[2022-01-02] MEDS: LAMOTRIGINE 100 MG, LAMOTRIGINE 50 MG PO SCH ×2 (16:00→21:32)
[2022-01-02] MEDS ORDERED: SODIUM ZIRCONIUM CYCLOSILICATE (LOKELMA) 5 GM PACKET PO ONE (16:55)
[2022-01-02] MEDS: FOLIC ACID 1 MG TABLET (FP) GT SCH (21:30)
[2022-01-02] MEDS: SENNOSIDES 8.8 MG/5 ML BULK BOTTLE PO SCH (21:36)
[2022-01-03] MEDS: levETIRAcetam 500 MG/5 ML ORAL SOLUTION (UNIT-DOSE CUPS) GT SCH ×3 (06:08→22:37)
[2022-01-03] MEDS: BUDESONIDE 0.5 MG/2 ML INH SUSP VIAL NEB SCH ×2 (07:30→20:05)
[2022-01-03 09:16] LABS: BASO % 0.2 % (0-2.0); EOS % 0.4 % (0-4.5); HEMATOCRIT 37.8 % (35.4-49); HEMOGLOBIN 12.5 GM/dL (11.7-16.9); LYMPH % 11.9 % (8-40); MCH 27.8 pg (25.7-33.7); MCHC 33.2 g/dl (32.0-35.9); MEAN CELL VOLUME 83.9 fl (80-96); MEAN PLT VOLUME 7.1 fl (7.5-11.1); MONO % 6.1 % (3.8-10.2); NEUT % 81.4 % (42.8-82.8); PLATELET COUNT 431 10^3/uL (134-434); RDW 15.2 % (11.9-15.9); WHITE BLOOD COUNT 9.5 K/mm3 (4.0-10.0)
[2022-01-03 09:34] LABS: ALBUMIN 3.3 g/dl (3.4-5.0); MAGNESIUM 2.1 mg/dL (1.8-2.4)
[2022-01-03 09:37] LABS: CREATININE 0.4 mg/dL (0.55-1.3)
[2022-01-03 09:38] LABS: BILIRUBIN,TOTAL 0.5 mg/dL (0.2-1)
[2022-01-03 09:39] LABS: TOT PROT 8.1 g/dl (6.4-8.2)
[2022-01-03] MEDS: FAMOTIDINE 20 MG TABLET PEG SCH (09:55)
[2022-01-03] MEDS: HEPARIN NA (PORCINE) 5,000 UNITS/ML 1ML VIAL SQ SCH ×2 (09:55→22:06)
[2022-01-03] MEDS: MAGNESIUM HYDROX 2400MG/30ML ORAL SUSPENSION 30 ML CUP GT SCH ×2 (09:55→22:05)
[2022-01-03] MEDS: cloBAZam 10 MG TABLET GT SCH ×2 (09:55→22:07)
[2022-01-03] MEDS: amLODIPine BESYLATE 5 MG TABLET (FP) GT SCH (09:56)
[2022-01-03] MEDS: METOPROLOL TARTRATE 50 MG TABLET (FP) PEG SCH ×2 (09:56→22:07)
[2022-01-03] MEDS: LORATADINE 10 MG TABLET GT SCH (09:56)
[2022-01-03] MEDS: MULTIVIT-MINERALS ORAL LIQUID GT SCH (09:57)
[2022-01-03] MEDS: LAMOTRIGINE PO SCH (09:57)
[2022-01-03] MEDS: POLYETHYLENE GLYCOL (HEALTHYLAX) 3350 17 GM PACKET GT SCH (09:57)
[2022-01-03] MEDS: LAMOTRIGINE 100 MG, LAMOTRIGINE 50 MG PO SCH ×2 (13:06→21:50)
[2022-01-03] MEDS: SENNOSIDES 8.8 MG/5 ML BULK BOTTLE PO SCH (21:50)
[2022-01-03] MEDS: FOLIC ACID 1 MG TABLET (FP) GT SCH (22:07)
[2022-01-04] MEDS: levETIRAcetam 500 MG/5 ML ORAL SOLUTION (UNIT-DOSE CUPS) GT SCH ×2 (06:17→16:27)
[2022-01-04] MEDS: BUDESONIDE 0.5 MG/2 ML INH SUSP VIAL NEB SCH (07:37)
[2022-01-04] MEDS: METOPROLOL TARTRATE 50 MG TABLET (FP) PEG SCH (11:02)
[2022-01-04] MEDS: LORATADINE 10 MG TABLET GT SCH (11:02)
[2022-01-04] MEDS: MAGNESIUM HYDROX 2400MG/30ML ORAL SUSPENSION 30 ML CUP GT SCH (11:02)
[2022-01-04] MEDS: amLODIPine BESYLATE 5 MG TABLET (FP) GT SCH (11:02)
[2022-01-04] MEDS: SCOPOLAMINE HYDROBROMIDE 1 PATCH PATCH.TD72 TD SCH (11:02)
[2022-01-04] MEDS: FAMOTIDINE 20 MG TABLET PEG SCH (11:02)
[2022-01-04] MEDS: cloBAZam 10 MG TABLET GT SCH (11:02)
[2022-01-04] MEDS: POLYETHYLENE GLYCOL (HEALTHYLAX) 3350 17 GM PACKET GT SCH (11:02)
[2022-01-04] MEDS: LAMOTRIGINE PO SCH (11:03)
[2022-01-04] MEDS: MULTIVIT-MINERALS ORAL LIQUID GT SCH (11:04)
[2022-01-04] MEDS: HEPARIN NA (PORCINE) 5,000 UNITS/ML 1ML VIAL SQ SCH (11:04)
[2022-01-04 12:07] LABS: BASO % 0.2 % (0-2.0); EOS % 0.1 % (0-4.5); HEMATOCRIT 39.2 % (35.4-49); HEMOGLOBIN 12.9 GM/dL (11.7-16.9); MCH 27.5 pg (25.7-33.7); MCHC 32.8 g/dl (32.0-35.9); MONO % 4.2 % (3.8-10.2); NEUT % 87.5 % (42.8-82.8); PLATELET COUNT 451 10^3/uL (134-434); RBC 4.67 M/mm3 (4.00-5.60); RDW 15.4 % (11.9-15.9); WHITE BLOOD COUNT 12.2 K/mm3 (4.0-10.0)
[2022-01-04 12:31] LABS: ALBUMIN 3.5 g/dl (3.4-5.0); CALCIUM 9.6 mg/dL (8.5-10.1); CREATININE 0.5 mg/dL (0.55-1.3); MAGNESIUM 2.2 mg/dL (1.8-2.4)
[2022-01-04 12:32] LABS: BLOOD UREA NITROGEN 11.8 mg/dL (7-18)
[2022-01-04 12:33] LABS: BILIRUBIN,TOTAL 0.3 mg/dL (0.2-1); TOT PROT 8.4 g/dl (6.4-8.2)
[2022-01-04] MEDS: LAMOTRIGINE 100 MG, LAMOTRIGINE 50 MG PO SCH (13:51)
[2022-01-04 14:58] VITALS: BP 123/86; PULSE 70; TEMP 97.9
== END 2022-01-04 18:43 | DRG 466 ==
LOC: JER 09:59 → JERBED 12:38 → J5S 18:14 → J6S 12-25 18:30
PROVIDERS: ADMIT Internal Medicine; ATTEND Nurse Practitioner Family
DX: T83.511A Infection and inflammatory reaction due to indwelling urethral catheter, initial encounter (principal); A41.9 Sepsis, unspecified organism; J69.0 Pneumonitis due to inhalation of food and vomit; J96.01 Acute respiratory failure with hypoxia; R65.20 Severe sepsis without septic shock; R53.2 Functional quadriplegia; L89.890 Pressure ulcer of other site, unstageable; G40.909 Epilepsy, unspecified, not intractable, without status epilepticus; I10 Essential (primary) hypertension; J45.909 Unspecified asthma, uncomplicated; Q54.9 Hypospadias, unspecified; R62.50 Unspecified lack of expected normal physiological development in childhood; N39.0 Urinary tract infection, site not specified; F73 Profound intellectual disabilities; Y83.9 Surgical procedure, unspecified as the cause of abnormal reaction of the patient, or of later complication, without mention of misadventure at the time of the procedure
CPT/HCPCS: 0241U-QW; 36415; 71045-TC-FY; 80053; 80177; 81003; 82550; 82728; 82803; 83605; 83615; 83735; 84100; 84484; 85025; 85379; 85610; 86140; 87040; 87086; 87186; 93005; 93010; 94640; 94761; 99285-25; C9803-CS; J1644; U0003; U0005

== ENCOUNTER 2022-02-03 09:47 | Inpatient (IN) | payer OTHER ==
[2022-02-03] MEDS ORDERED: LACTATED RINGERS SOLUTION 1,000 ML IV STA (10:27)
[2022-02-03 10:42] LABS: BASO % 0.2 % (0-2.0); EOS % 1.6 % (0-4.5); HEMATOCRIT 42.3 % (35.4-49); HEMOGLOBIN 14.2 GM/dL (11.7-16.9); LYMPH % 7.1 % (8-40); MCH 27.6 pg (25.7-33.7); MCHC 33.6 g/dl (32.0-35.9); MEAN PLT VOLUME 8.8 fl (7.5-11.1); MONO % 6.1 % (3.8-10.2); PLATELET COUNT 230 10^3/uL (134-434); RBC 5.16 M/mm3 (4.00-5.60); RDW 16.1 % (11.9-15.9)
[2022-02-03 10:48] VITALS: BMI 28.3
[2022-02-03 10:49] LABS: INR 1.11 (0.83-1.09); PROTHROMBIN TIME (PATIENT) 12.8 SEC (9.7-13.0)
[2022-02-03 10:51] LABS: ACTIVATED PTT 43.1 SECONDS (25.2-36.5)
[2022-02-03 11:02] LABS: CHLORIDE 102 mmol/L (98-107); SODIUM 131 mmol/L (136-145)
[2022-02-03 11:04] LABS: CALCIUM 9.2 mg/dL (8.5-10.1)
[2022-02-03 11:05] LABS: BLOOD UREA NITROGEN 8.3 mg/dL (7-18); CO2 29 mmol/L (21-32); GLUCOSE,RANDOM 173 mg/dL (74-106)
[2022-02-03 11:08] LABS: CREATININE 0.7 mg/dL (0.55-1.3)
[2022-02-03 11:09] LABS: BILIRUBIN,TOTAL 0.3 mg/dL (0.2-1); TOT PROT 10.2 g/dl (6.4-8.2)
[2022-02-03 11:11] LABS: ALK PHOS 276 U/L (45-117)
[2022-02-03 11:16] LABS: VENOUS BASE EXCESS 4.7 mmol/L (-2-2); VENOUS PCO2 41.6 mmHg (38-52); VENOUS PH 7.461 (7.310-7.410)
[2022-02-03 11:25] LABS: ANION GAP 1 MMOL/L (8-16); SGOT/AST 175 U/L (15-37); SGPT/ALT 76 U/L (13-61)
[2022-02-03] MEDS ORDERED: PIPERACILLIN/TAZOB 4.5 GM 4.5 GM in DEXTROSE 5%-WATER 100 ML IVPB ONE (12:38)
[2022-02-03] MEDS ORDERED: VANCOMYCIN 1,000 MG in DEXTROSE 5%-WATER - 250 ML IVPB ONE (12:38)
[2022-02-03] MEDS ORDERED: PIPERACILLIN/TAZOB 4.5 GM 4.5 GM/100 ML BAG IVPB ONE (12:46)
[2022-02-03] MEDS ORDERED: VANCOMYCIN/WATER FOR INJ (PEG) 1,000 MG/200 ML BAG IVPB ONE (12:46)
[2022-02-03] MEDS ORDERED: METOPROLOL TARTRATE 5 MG/5 ML VIAL IVPUSH ONE (12:52)
[2022-02-03] MEDS ORDERED: METOPROLOL TARTRATE 50 MG TABLET (FP) PO ONE (12:52)
[2022-02-03 12:56] LABS: EPI CELLS 14 /uL (0-25.1); HYALINE CASTS 2 /uL (0-3.1); PH,URINE >= 9.0 (5.0-8.0); URINE APPEARANCE CLEAR; URINE BACTERIA 32 /uL (0-1359); URINE BILIRUBIN NEGATIVE (NEGATIVE); URINE COLOR YELLOW; URINE GLUCOSE (UA) NEGATIVE (NEGATIVE); URINE KETONE NEGATIVE (NEGATIVE); URINE LEUK ESTERASE TRACE (NEGATIVE); URINE NITRITE NEGATIVE (NEGATIVE); URINE PROTEIN TRACE (NEGATIVE); URINE RBC 85 /uL (0-23.9); URINE UROBILINOGEN 0.2 mg/dL (0.2-1.0); URINE WBC 104 /uL (0-25.8)
[2022-02-03] MEDS ORDERED: METOPROLOL TARTRATE 50 MG TABLET (FP) ONE (12:56)
[2022-02-03] MEDS ORDERED: METOPROLOL TARTRATE 5 MG/5 ML VIAL ONE (12:56)
[2022-02-03] MEDS ORDERED: METOPROLOL TARTRATE 50 MG TABLET (FP) GT ONE (13:15)
[2022-02-03 14:14] LABS: ALBUMIN 3.7 g/dl (3.4-5.0)
[2022-02-03 14:17] LABS: CREATININE 0.5 mg/dL (0.55-1.3)
[2022-02-03 14:19] LABS: BILIRUBIN,TOTAL 0.4 mg/dL (0.2-1); TOT PROT 8.5 g/dl (6.4-8.2)
[2022-02-03] MEDS ORDERED: ALBUTEROL SO4 2.5/IPRATROPIUM 0.5 INH SOL 3 ML VIAL.NEB. NEB PRN (14:29)
[2022-02-03] MEDS ORDERED: ZINC OXIDE 20% TOPICAL OINTMENT 30 GM TUBE TP PRN (14:29)
[2022-02-03] MEDS ORDERED: BISACODYL 10 MG SUPP.RECT RC PRN (14:29)
[2022-02-03] MEDS ORDERED: SCOPOLAMINE HYDROBROMIDE 1 PATCH PATCH.TD72 TD SCH (14:30)
[2022-02-03] MEDS ORDERED: diazePAM RECTAL GEL 10 MG KIT (PRE-CALIBRATED) RC PRN (14:30)
[2022-02-03] MEDS ORDERED: POTASSIUM CHLORIDE ORAL LIQUID 20 MEQ/15 ML GT ONE ×2 (15:57→18:30)
[2022-02-03] MEDS ORDERED: AMPICILLIN NA/SULBACTAM NA 1.5 GM in SODIUM CHLORIDE 100 ML IVPB SCH (16:00)
[2022-02-03] MEDS ORDERED: levETIRAcetam 250 MG TABLET PO SCH (16:00)
[2022-02-03 16:44] LABS: MAGNESIUM 2.6 mg/dL (1.8-2.4)
[2022-02-03 16:48] LABS: PHOSPHOROUS 1.9 mg/dL (2.5-4.9)
[2022-02-03] MEDS: lamoTRIgine 100 MG TABLET GT SCH ×2 (18:02→22:37)
[2022-02-03] MEDS: levETIRAcetam 500 MG/5 ML ORAL SOLUTION (UNIT-DOSE CUPS) GT SCH ×2 (18:04→22:36)
[2022-02-03] MEDS: cloBAZam 10 MG TABLET GT SCH (18:59)
[2022-02-03] MEDS: BUDESONIDE 0.5 MG/2 ML INH SUSP VIAL NEB SCH (20:51)
[2022-02-03] MEDS ORDERED: METHYLCELLULOSE 500 MG GT SCH (22:00)
[2022-02-03] MEDS ORDERED: SODIUM CHLORIDE 100 ML IVPB ONE (22:08)
[2022-02-03] MEDS ORDERED: AMPICILLIN NA/SULBACTAM NA 1.5 GM VIAL ONE (22:08)
[2022-02-03] MEDS: AMPICILLIN NA/SULBACTAM NA 1.5 GM in SODIUM CHLORIDE 100 ML IVPB SCH (22:32)
[2022-02-03] MEDS: FOLIC ACID 1 MG TABLET (FP) GT SCH (22:33)
[2022-02-03] MEDS: LORATADINE 10 MG TABLET GT SCH (22:33)
[2022-02-03] MEDS: METOPROLOL TARTRATE 50 MG TABLET (FP) PEG SCH (22:34)
[2022-02-03] MEDS: POLYETHYLENE GLYCOL (HEALTHYLAX) 3350 17 GM PACKET GT SCH (22:34)
[2022-02-03] MEDS: diazePAM 2 MG TABLET GT SCH (22:34)
[2022-02-03] MEDS: PSYLLIUM 5.85 GM PACKET GT SCH (22:37)
[2022-02-03] MEDS: FAMOTIDINE 40 MG/5 ML ORAL SUSPENSION PEG SCH (22:55)
[2022-02-03] MEDS: SENNOSIDES 8.8 MG/5 ML BULK BOTTLE GT SCH (22:55)
[2022-02-03] MEDS: MAGNESIUM HYDROX 2400MG/30ML ORAL SUSPENSION 30 ML CUP GT SCH (22:56)
[2022-02-04] MEDS ORDERED: SODIUM CHLORIDE 100 ML IVPB ONE ×2 (02:23→08:19)
[2022-02-04] MEDS ORDERED: AMPICILLIN NA/SULBACTAM NA 1.5 GM VIAL ONE ×2 (02:23→08:19)
[2022-02-04] MEDS: AMPICILLIN NA/SULBACTAM NA 1.5 GM in SODIUM CHLORIDE 100 ML IVPB SCH ×2 (03:14→08:32)
[2022-02-04] MEDS: lamoTRIgine 100 MG TABLET GT SCH ×3 (04:13→22:44)
[2022-02-04] MEDS: lamoTRIgine 25 MG TABLET PO SCH (04:13)
[2022-02-04] MEDS: levETIRAcetam 500 MG/5 ML ORAL SOLUTION (UNIT-DOSE CUPS) GT SCH ×5 (04:13→22:43)
[2022-02-04] MEDS: cloBAZam 10 MG TABLET GT SCH ×2 (04:14→17:56)
[2022-02-04] MEDS: BUDESONIDE 0.5 MG/2 ML INH SUSP VIAL NEB SCH ×2 (07:28→20:05)
[2022-02-04] MEDS: ENOXAPARIN NA (PORCINE) 40 MG/0.4 ML DISP.SYRIN SQ SCH (10:45)
[2022-02-04] MEDS: diazePAM 2 MG TABLET GT SCH ×2 (10:46→22:42)
[2022-02-04] MEDS: amLODIPine BESYLATE 5 MG TABLET (FP) GT SCH (10:46)
[2022-02-04] MEDS: MAGNESIUM HYDROX 2400MG/30ML ORAL SUSPENSION 30 ML CUP GT SCH ×2 (10:46→22:44)
[2022-02-04] MEDS: METOPROLOL TARTRATE 50 MG TABLET (FP) PEG SCH ×2 (13:40→22:42)
[2022-02-04] MEDS: FLUTICASONE PROP 0.05% 16 GM NASAL SPRAY NS SCH (13:43)
[2022-02-04] MEDS: MULTIVIT-MINERALS ORAL LIQUID GT SCH (13:44)
[2022-02-04] MEDS ORDERED: PIPERACILLIN/TAZOBACTAM 3.375 GM VIAL IVPB ONE (17:54)
[2022-02-04] MEDS: PIPERACILLIN/TAZOB 3.375 GM 3.375 GM in DEXTROSE 5%-WATER - 50 ML IVPB SCH (17:56)
[2022-02-04] MEDS: LORATADINE 10 MG TABLET GT SCH (22:42)
[2022-02-04] MEDS: FOLIC ACID 1 MG TABLET (FP) GT SCH (22:42)
[2022-02-04] MEDS: PSYLLIUM 5.85 GM PACKET GT SCH (22:44)
[2022-02-04] MEDS: SENNOSIDES 8.8 MG/5 ML BULK BOTTLE GT SCH (22:46)
[2022-02-04] MEDS: FAMOTIDINE 40 MG/5 ML ORAL SUSPENSION PEG SCH (22:47)
[2022-02-04] MEDS: POLYETHYLENE GLYCOL (HEALTHYLAX) 3350 17 GM PACKET GT SCH (23:42)
[2022-02-05] MEDS ORDERED: PIPERACILLIN/TAZOBACTAM 3.375 GM VIAL IVPB ONE ×3 (00:32→18:26)
[2022-02-05] MEDS ORDERED: DEXTROSE 5%-WATER - 50 ML IVPB ONE ×3 (00:33→18:26)
[2022-02-05] MEDS: PIPERACILLIN/TAZOB 3.375 GM 3.375 GM in DEXTROSE 5%-WATER - 50 ML IVPB SCH ×3 (01:04→18:27)
[2022-02-05] MEDS: cloBAZam 10 MG TABLET GT SCH ×2 (06:39→18:27)
[2022-02-05] MEDS: lamoTRIgine 25 MG TABLET PO SCH (06:39)
[2022-02-05] MEDS: levETIRAcetam 500 MG/5 ML ORAL SOLUTION (UNIT-DOSE CUPS) GT SCH ×5 (06:40→21:38)
[2022-02-05] MEDS: lamoTRIgine 100 MG TABLET GT SCH ×3 (06:40→21:38)
[2022-02-05] MEDS: BUDESONIDE 0.5 MG/2 ML INH SUSP VIAL NEB SCH ×2 (08:14→20:33)
[2022-02-05] MEDS: ENOXAPARIN NA (PORCINE) 40 MG/0.4 ML DISP.SYRIN SQ SCH (10:55)
[2022-02-05] MEDS: FLUTICASONE PROP 0.05% 16 GM NASAL SPRAY NS SCH (10:56)
[2022-02-05] MEDS: MAGNESIUM HYDROX 2400MG/30ML ORAL SUSPENSION 30 ML CUP GT SCH ×2 (10:56→21:34)
[2022-02-05] MEDS: MULTIVIT-MINERALS ORAL LIQUID GT SCH (10:56)
[2022-02-05] MEDS: amLODIPine BESYLATE 5 MG TABLET (FP) GT SCH (10:57)
[2022-02-05] MEDS: diazePAM 2 MG TABLET GT SCH ×2 (10:57→21:34)
[2022-02-05 13:49] LABS: BASO % 0.1 % (0-2.0); HEMOGLOBIN 11.5 GM/dL (11.7-16.9); LYMPH % 15.2 % (8-40); MCH 27.3 pg (25.7-33.7); MEAN CELL VOLUME 82.7 fl (80-96); MEAN PLT VOLUME 9.2 fl (7.5-11.1); MONO % 10.8 % (3.8-10.2); NEUT % 66.9 % (42.8-82.8); PLATELET COUNT 252 10^3/uL (134-434); RBC 4.23 M/mm3 (4.00-5.60); RDW 15.6 % (11.9-15.9); WHITE BLOOD COUNT 6.6 K/mm3 (4.0-10.0)
[2022-02-05] MEDS: METOPROLOL TARTRATE 50 MG TABLET (FP) PEG SCH ×2 (13:58→21:38)
[2022-02-05 14:14] LABS: ALBUMIN 3.1 g/dl (3.4-5.0); CALCIUM 9.1 mg/dL (8.5-10.1); MAGNESIUM 2.3 mg/dL (1.8-2.4)
[2022-02-05 14:18] LABS: CREATININE 0.4 mg/dL (0.55-1.3)
[2022-02-05 14:19] LABS: BILIRUBIN,TOTAL 0.3 mg/dL (0.2-1)
[2022-02-05] MEDS: SENNOSIDES 8.8 MG/5 ML BULK BOTTLE GT SCH (21:34)
[2022-02-05] MEDS: FOLIC ACID 1 MG TABLET (FP) GT SCH (21:34)
[2022-02-05] MEDS: LORATADINE 10 MG TABLET GT SCH (21:34)
[2022-02-05] MEDS: POLYETHYLENE GLYCOL (HEALTHYLAX) 3350 17 GM PACKET GT SCH (21:34)
[2022-02-05] MEDS: PSYLLIUM 5.85 GM PACKET GT SCH (21:34)
[2022-02-05] MEDS: FAMOTIDINE 40 MG/5 ML ORAL SUSPENSION PEG SCH (21:35)
[2022-02-06] MEDS ORDERED: ZINC OXIDE 20% TOPICAL OINTMENT 30 GM TUBE TP PRN (01:24)
[2022-02-06] MEDS ORDERED: diazePAM RECTAL GEL 10 MG KIT (PRE-CALIBRATED) RC PRN (01:24)
[2022-02-06] MEDS ORDERED: ALBUTEROL SO4 2.5/IPRATROPIUM 0.5 INH SOL 3 ML VIAL.NEB. NEB PRN (01:24)
[2022-02-06] MEDS ORDERED: BISACODYL 10 MG SUPP.RECT RC PRN (01:24)
[2022-02-06] MEDS ORDERED: DEXTROSE 5%-WATER - 50 ML IVPB ONE ×3 (01:41→09:33)
[2022-02-06] MEDS ORDERED: PIPERACILLIN/TAZOBACTAM 3.375 GM VIAL IVPB ONE ×4 (01:41→17:48)
[2022-02-06] MEDS: PIPERACILLIN/TAZOB 3.375 GM 3.375 GM in DEXTROSE 5%-WATER - 50 ML IVPB SCH ×3 (01:50→17:56)
[2022-02-06] MEDS: cloBAZam 10 MG TABLET GT SCH ×2 (05:35→17:55)
[2022-02-06] MEDS: lamoTRIgine 25 MG TABLET PO SCH (05:36)
[2022-02-06] MEDS: lamoTRIgine 100 MG TABLET GT SCH ×3 (05:37→20:30)
[2022-02-06] MEDS: levETIRAcetam 500 MG/5 ML ORAL SOLUTION (UNIT-DOSE CUPS) GT SCH ×5 (05:38→20:30)
[2022-02-06] MEDS: MAGNESIUM HYDROX 2400MG/30ML ORAL SUSPENSION 30 ML CUP GT SCH ×2 (09:31→21:12)
[2022-02-06] MEDS: FLUTICASONE PROP 0.05% 16 GM NASAL SPRAY NS SCH (09:31)
[2022-02-06] MEDS: METOPROLOL TARTRATE 25 MG TABLET (FP) PEG SCH ×2 (09:34→21:07)
[2022-02-06] MEDS: amLODIPine BESYLATE 5 MG TABLET (FP) GT SCH (09:34)
[2022-02-06] MEDS: ENOXAPARIN NA (PORCINE) 40 MG/0.4 ML DISP.SYRIN SQ SCH (09:35)
[2022-02-06] MEDS: diazePAM 2 MG TABLET GT SCH ×2 (09:35→21:07)
[2022-02-06] MEDS: MULTIVIT-MINERALS ORAL LIQUID GT SCH (09:36)
[2022-02-06] MEDS: BUDESONIDE 0.5 MG/2 ML INH SUSP VIAL NEB SCH ×2 (09:45→20:34)
[2022-02-06 14:04] LABS: BASO % 0.2 % (0-2.0); EOS % 5.8 % (0-4.5); HEMATOCRIT 35.2 % (35.4-49); HEMOGLOBIN 11.4 GM/dL (11.7-16.9); LYMPH % 17.5 % (8-40); MCH 27.1 pg (25.7-33.7); MCHC 32.5 g/dl (32.0-35.9); MEAN CELL VOLUME 83.5 fl (80-96); MONO % 10.5 % (3.8-10.2); PLATELET COUNT 257 10^3/uL (134-434); RBC 4.21 M/mm3 (4.00-5.60); RDW 15.5 % (11.9-15.9); WHITE BLOOD COUNT 5.8 K/mm3 (4.0-10.0)
[2022-02-06] MEDS ORDERED: SCOPOLAMINE HYDROBROMIDE 1 PATCH PATCH.TD72 TD SCH (14:30)
[2022-02-06 14:33] LABS: BLOOD UREA NITROGEN 9.2 mg/dL (7-18)
[2022-02-06 14:34] LABS: ALBUMIN 3.2 g/dl (3.4-5.0); CALCIUM 8.9 mg/dL (8.5-10.1); CREATININE 0.5 mg/dL (0.55-1.3); MAGNESIUM 2.3 mg/dL (1.8-2.4)
[2022-02-06 14:35] LABS: BILIRUBIN,TOTAL 0.3 mg/dL (0.2-1); TOT PROT 7.1 g/dl (6.4-8.2)
[2022-02-06] MEDS: FOLIC ACID 1 MG TABLET (FP) GT SCH (21:07)
[2022-02-06] MEDS: LORATADINE 10 MG TABLET GT SCH (21:07)
[2022-02-06] MEDS: SENNOSIDES 8.8 MG/5 ML BULK BOTTLE GT SCH (21:08)
[2022-02-06] MEDS: POLYETHYLENE GLYCOL (HEALTHYLAX) 3350 17 GM PACKET GT SCH (21:11)
[2022-02-06] MEDS: PSYLLIUM 5.85 GM PACKET GT SCH (21:12)
[2022-02-06] MEDS: FAMOTIDINE 40 MG/5 ML ORAL SUSPENSION PEG SCH (21:14)
[2022-02-07] MEDS ORDERED: DEXTROSE 5%-WATER - 50 ML IVPB ONE ×3 (00:45→17:06)
[2022-02-07] MEDS ORDERED: PIPERACILLIN/TAZOBACTAM 3.375 GM VIAL IVPB ONE ×3 (00:45→17:06)
[2022-02-07] MEDS: PIPERACILLIN/TAZOB 3.375 GM 3.375 GM in DEXTROSE 5%-WATER - 50 ML IVPB SCH ×3 (01:28→17:20)
[2022-02-07] MEDS: lamoTRIgine 25 MG TABLET PO SCH (05:00)
[2022-02-07] MEDS: lamoTRIgine 100 MG TABLET GT SCH ×3 (05:00→21:39)
[2022-02-07] MEDS: cloBAZam 10 MG TABLET GT SCH ×2 (05:00→17:20)
[2022-02-07] MEDS: levETIRAcetam 500 MG/5 ML ORAL SOLUTION (UNIT-DOSE CUPS) GT SCH ×5 (05:00→21:39)
[2022-02-07] MEDS: BUDESONIDE 0.5 MG/2 ML INH SUSP VIAL NEB SCH ×2 (07:20→20:00)
[2022-02-07 08:33] LABS: BASO % 0.2 % (0-2.0); EOS % 6.6 % (0-4.5); HEMOGLOBIN 10.8 GM/dL (11.7-16.9); LYMPH % 21.5 % (8-40); MCH 27.6 pg (25.7-33.7); MCHC 33.6 g/dl (32.0-35.9); MEAN PLT VOLUME 8.6 fl (7.5-11.1); NEUT % 59.7 % (42.8-82.8); PLATELET COUNT 233 10^3/uL (134-434); RDW 15.4 % (11.9-15.9); WHITE BLOOD COUNT 5.4 K/mm3 (4.0-10.0)
[2022-02-07 08:38] LABS: INR 1.21 (0.83-1.09); PROTHROMBIN TIME (PATIENT) 13.9 SEC (9.7-13.0)
[2022-02-07 09:05] LABS: CALCIUM 8.6 mg/dL (8.5-10.1)
[2022-02-07 09:06] LABS: BLOOD UREA NITROGEN 8.6 mg/dL (7-18)
[2022-02-07 09:08] LABS: CREATININE 0.4 mg/dL (0.55-1.3)
[2022-02-07 09:10] LABS: BILIRUBIN,TOTAL 0.4 mg/dL (0.2-1); TOT PROT 6.6 g/dl (6.4-8.2)
[2022-02-07] MEDS: diazePAM 2 MG TABLET GT SCH ×2 (11:44→21:33)
[2022-02-07] MEDS: amLODIPine BESYLATE 5 MG TABLET (FP) GT SCH (11:44)
[2022-02-07] MEDS: METOPROLOL TARTRATE 25 MG TABLET (FP) PEG SCH ×2 (11:45→21:31)
[2022-02-07] MEDS: ENOXAPARIN NA (PORCINE) 40 MG/0.4 ML DISP.SYRIN SQ SCH (11:45)
[2022-02-07] MEDS: FLUTICASONE PROP 0.05% 16 GM NASAL SPRAY NS SCH (11:47)
[2022-02-07] MEDS: MULTIVIT-MINERALS ORAL LIQUID GT SCH (11:53)
[2022-02-07] MEDS: MAGNESIUM HYDROX 2400MG/30ML ORAL SUSPENSION 30 ML CUP GT SCH ×2 (11:54→21:29)
[2022-02-07] MEDS: SENNOSIDES 8.8 MG/5 ML BULK BOTTLE GT SCH (21:29)
[2022-02-07] MEDS: PSYLLIUM 5.85 GM PACKET GT SCH (21:31)
[2022-02-07] MEDS: FAMOTIDINE 40 MG/5 ML ORAL SUSPENSION PEG SCH (21:33)
[2022-02-07] MEDS: LORATADINE 10 MG TABLET GT SCH (21:34)
[2022-02-07] MEDS: FOLIC ACID 1 MG TABLET (FP) GT SCH (21:34)
[2022-02-07] MEDS: POLYETHYLENE GLYCOL (HEALTHYLAX) 3350 17 GM PACKET GT SCH (21:35)
[2022-02-08] MEDS ORDERED: DEXTROSE 5%-WATER - 50 ML IVPB ONE ×2 (00:53→09:21)
[2022-02-08] MEDS ORDERED: PIPERACILLIN/TAZOBACTAM 3.375 GM VIAL IVPB ONE ×2 (00:53→09:21)
[2022-02-08] MEDS: PIPERACILLIN/TAZOB 3.375 GM 3.375 GM in DEXTROSE 5%-WATER - 50 ML IVPB SCH ×3 (01:22→18:42)
[2022-02-08] MEDS: lamoTRIgine 100 MG TABLET GT SCH ×2 (05:27→18:33)
[2022-02-08] MEDS: lamoTRIgine 25 MG TABLET PO SCH (05:27)
[2022-02-08] MEDS: cloBAZam 10 MG TABLET GT SCH ×2 (05:27→18:42)
[2022-02-08] MEDS: levETIRAcetam 500 MG/5 ML ORAL SOLUTION (UNIT-DOSE CUPS) GT SCH ×4 (05:28→18:32)
[2022-02-08] MEDS: BUDESONIDE 0.5 MG/2 ML INH SUSP VIAL NEB SCH ×2 (07:17→20:32)
[2022-02-08 09:32] LABS: BASO % 0.2 % (0-2.0); EOS % 1.1 % (0-4.5); HEMATOCRIT 37.8 % (35.4-49); HEMOGLOBIN 12.4 GM/dL (11.7-16.9); LYMPH % 12.5 % (8-40); MCH 27.1 pg (25.7-33.7); MCHC 32.9 g/dl (32.0-35.9); MEAN CELL VOLUME 82.3 fl (80-96); MEAN PLT VOLUME 8.4 fl (7.5-11.1); MONO % 9.3 % (3.8-10.2); NEUT % 76.9 % (42.8-82.8); PLATELET COUNT 281 10^3/uL (134-434); RBC 4.59 M/mm3 (4.00-5.60); RDW 15.6 % (11.9-15.9); WHITE BLOOD COUNT 5.8 K/mm3 (4.0-10.0)
[2022-02-08 09:38] LABS: INR 1.21 (0.83-1.09); PROTHROMBIN TIME (PATIENT) 13.9 SEC (9.7-13.0)
[2022-02-08] MEDS: ENOXAPARIN NA (PORCINE) 40 MG/0.4 ML DISP.SYRIN SQ SCH (09:44)
[2022-02-08] MEDS: METOPROLOL TARTRATE 25 MG TABLET (FP) PEG SCH (09:44)
[2022-02-08] MEDS: MAGNESIUM HYDROX 2400MG/30ML ORAL SUSPENSION 30 ML CUP GT SCH (09:44)
[2022-02-08] MEDS: amLODIPine BESYLATE 5 MG TABLET (FP) GT SCH (09:45)
[2022-02-08] MEDS: diazePAM 2 MG TABLET GT SCH (09:45)
[2022-02-08] MEDS: MULTIVIT-MINERALS ORAL LIQUID GT SCH (09:46)
[2022-02-08] MEDS: FLUTICASONE PROP 0.05% 16 GM NASAL SPRAY NS SCH (09:47)
[2022-02-08 10:01] LABS: ALBUMIN 3.5 g/dl (3.4-5.0); BLOOD UREA NITROGEN 7.7 mg/dL (7-18); CALCIUM 9.1 mg/dL (8.5-10.1); MAGNESIUM 2.2 mg/dL (1.8-2.4)
[2022-02-08 10:04] LABS: CREATININE 0.5 mg/dL (0.55-1.3)
[2022-02-08 10:06] LABS: BILIRUBIN,TOTAL 0.2 mg/dL (0.2-1); TOT PROT 7.6 g/dl (6.4-8.2)
[2022-02-08] MEDS ORDERED: SUCCINYLCHOLINE CHLORIDE 200 MG/10 ML SYRINGE ONE (16:00)
[2022-02-08] MEDS ORDERED: PROPOFOL 20 ML ONE ×5 (16:00→20:08)
[2022-02-08] MEDS ORDERED: MIDAZOLAM HCL 2 MG/2 ML SINGLE DOSE VIAL ONE ×2 (16:18→22:21)
[2022-02-08 20:02] LABS: HEMATOCRIT 34.6 % (35.4-49); HEMOGLOBIN 11.3 GM/dL (11.7-16.9); MCH 27.5 pg (25.7-33.7); MCHC 32.6 g/dl (32.0-35.9); MEAN CELL VOLUME 84.3 fl (80-96); MEAN PLT VOLUME 8.7 fl (7.5-11.1); PLATELET COUNT 397 10^3/uL (134-434); RDW 15.4 % (11.9-15.9); WHITE BLOOD COUNT 8.6 K/mm3 (4.0-10.0)
[2022-02-08] MEDS ORDERED: ROCURONIUM BROMIDE 50 MG/5 ML SYRINGE ONE (20:13)
[2022-02-08 20:32] LABS: CALCIUM 8.7 mg/dL (8.5-10.1)
[2022-02-08 20:33] LABS: BLOOD UREA NITROGEN 7.1 mg/dL (7-18)
[2022-02-08 20:36] LABS: CREATININE 0.6 mg/dL (0.55-1.3)
[2022-02-08] MEDS ORDERED: ALBUTEROL SO4 2.5/IPRATROPIUM 0.5 INH SOL 3 ML VIAL.NEB. NEB PRN (20:42)
[2022-02-08] MEDS ORDERED: diazePAM RECTAL GEL 10 MG KIT (PRE-CALIBRATED) RC PRN (20:42)
[2022-02-08] MEDS ORDERED: BISACODYL 10 MG SUPP.RECT RC PRN (20:42)
[2022-02-08] MEDS ORDERED: ZINC OXIDE 20% TOPICAL OINTMENT 30 GM TUBE TP PRN (20:42)
[2022-02-08] MEDS ORDERED: MAGNESIUM HYDROX 2400MG/30ML ORAL SUSPENSION 30 ML CUP GT SCH (22:00)
[2022-02-08] MEDS ORDERED: FOLIC ACID 1 MG TABLET (FP) GT SCH (22:00)
[2022-02-08] MEDS ORDERED: FAMOTIDINE 40 MG/5 ML ORAL SUSPENSION PEG SCH (22:00)
[2022-02-08] MEDS ORDERED: LORATADINE 10 MG TABLET GT SCH (22:00)
[2022-02-08] MEDS ORDERED: SENNOSIDES 8.8 MG/5 ML BULK BOTTLE GT SCH (22:00)
[2022-02-08] MEDS ORDERED: METOPROLOL TARTRATE 25 MG TABLET (FP) PEG SCH (22:00)
[2022-02-08] MEDS ORDERED: diazePAM 2 MG TABLET GT SCH (22:00)
[2022-02-08] MEDS ORDERED: POLYETHYLENE GLYCOL (HEALTHYLAX) 3350 17 GM PACKET GT SCH (22:00)
[2022-02-08] MEDS ORDERED: PSYLLIUM 5.85 GM PACKET GT SCH (22:00)
[2022-02-08] MEDS ORDERED: ONDANSETRON 4 MG/2 ML VIAL IVPUSH PRN (22:10)
[2022-02-08] MEDS: LACTATED RINGERS SOLUTION 1,000 ML IV SCH (23:27)
[2022-02-09] MEDS ORDERED: PIPERACILLIN/TAZOB 3.375 GM 3.375 GM in DEXTROSE 5%-WATER - 50 ML IVPB SCH (02:00)
[2022-02-09] MEDS ORDERED: PIPERACILLIN/TAZOBACTAM 3.375 GM VIAL IVPB ONE ×2 (03:30→09:19)
[2022-02-09] MEDS ORDERED: DEXTROSE 5%-WATER - 50 ML IVPB ONE ×2 (03:30→09:19)
[2022-02-09] MEDS ORDERED: cloBAZam 10 MG TABLET GT SCH (05:00)
[2022-02-09] MEDS ORDERED: lamoTRIgine 100 MG TABLET GT SCH (05:00)
[2022-02-09] MEDS ORDERED: lamoTRIgine 25 MG TABLET PO SCH (05:00)
[2022-02-09] MEDS ORDERED: levETIRAcetam 500 MG/5 ML ORAL SOLUTION (UNIT-DOSE CUPS) GT SCH ×2 (05:00)
[2022-02-09] MEDS ORDERED: ACETAMINOPHEN 1000 MG/100 ML BAG IVPB PRN (05:46)
[2022-02-09] MEDS ORDERED: diazePAM RECTAL GEL 10 MG KIT (PRE-CALIBRATED) RC PRN (07:19)
[2022-02-09] MEDS ORDERED: BISACODYL 10 MG SUPP.RECT RC PRN (07:19)
[2022-02-09] MEDS ORDERED: ZINC OXIDE 20% TOPICAL OINTMENT 30 GM TUBE TP PRN (07:19)
[2022-02-09] MEDS ORDERED: BUDESONIDE 0.5 MG/2 ML INH SUSP VIAL NEB SCH (08:00)
[2022-02-09] MEDS: ALBUTEROL SO4 2.5/IPRATROPIUM 0.5 INH SOL 3 ML VIAL.NEB. NEB PRN ×2 (08:50→20:05)
[2022-02-09] MEDS: BUDESONIDE 0.5 MG/2 ML INH SUSP VIAL NEB SCH ×2 (09:01→20:05)
[2022-02-09] MEDS: diazePAM 2 MG TABLET GT SCH ×2 (09:23→21:32)
[2022-02-09] MEDS: PIPERACILLIN/TAZOB 3.375 GM 3.375 GM in DEXTROSE 5%-WATER - 50 ML IVPB SCH ×2 (09:23→17:00)
[2022-02-09] MEDS: MAGNESIUM HYDROX 2400MG/30ML ORAL SUSPENSION 30 ML CUP GT SCH ×2 (09:23→21:31)
[2022-02-09] MEDS: amLODIPine BESYLATE 5 MG TABLET (FP) GT SCH (09:24)
[2022-02-09] MEDS: MUPIROCIN 2% TOPICAL OINTMENT FOR DECOLONIZATION NS SCH ×2 (09:24→21:28)
[2022-02-09] MEDS ORDERED: amLODIPine BESYLATE 5 MG TABLET (FP) GT SCH (10:00)
[2022-02-09] MEDS ORDERED: ENOXAPARIN NA (PORCINE) 40 MG/0.4 ML DISP.SYRIN SQ SCH ×2 (10:00)
[2022-02-09] MEDS ORDERED: FLUTICASONE PROP 0.05% 16 GM NASAL SPRAY NS SCH (10:00)
[2022-02-09] MEDS ORDERED: MULTIVIT-MINERALS ORAL LIQUID GT SCH (10:00)
[2022-02-09] MEDS ORDERED: METOPROLOL TARTRATE 5 MG/5 ML VIAL IVPUSH ONE (10:02)
[2022-02-09] MEDS: MULTIVIT-MINERALS ORAL LIQUID GT SCH (10:32)
[2022-02-09] MEDS: METOPROLOL TARTRATE 25 MG TABLET (FP) PEG SCH ×2 (10:33→21:30)
[2022-02-09] MEDS: FLUTICASONE PROP 0.05% 16 GM NASAL SPRAY NS SCH (11:00)
[2022-02-09 12:06] LABS: HEMATOCRIT 18.8 % (35.4-49); MCH 27.7 pg (25.7-33.7); MCHC 33.5 g/dl (32.0-35.9); MEAN CELL VOLUME 82.7 fl (80-96); MEAN PLT VOLUME 8.6 fl (7.5-11.1); PLATELET COUNT 192 10^3/uL (134-434); RBC 2.27 M/mm3 (4.00-5.60); RDW 15.2 % (11.9-15.9); WHITE BLOOD COUNT 9.6 K/mm3 (4.0-10.0)
[2022-02-09 12:17] LABS: HEMOGLOBIN 6.3 GM/dL (11.7-16.9)
[2022-02-09 12:36] LABS: BLOOD UREA NITROGEN 4.9 mg/dL (7-18)
[2022-02-09 12:39] LABS: CREATININE 0.5 mg/dL (0.55-1.3)
[2022-02-09 12:41] LABS: BILIRUBIN,TOTAL 0.4 mg/dL (0.2-1)
[2022-02-09 12:46] LABS: ALBUMIN 2.5 g/dl (3.4-5.0); CALCIUM 7.3 mg/dL (8.5-10.1); TOT PROT 5.3 g/dl (6.4-8.2)
[2022-02-09 13:50] LABS: ANISOCYTOSIS 2+; MACROCYTOSIS 0
[2022-02-09] MEDS ORDERED: SCOPOLAMINE HYDROBROMIDE 1 PATCH PATCH.TD72 TD SCH ×2 (14:30)
[2022-02-09] MEDS: lamoTRIgine 100 MG TABLET GT SCH ×2 (16:23→20:44)
[2022-02-09] MEDS: levETIRAcetam 500 MG/5 ML ORAL SOLUTION (UNIT-DOSE CUPS) GT SCH ×3 (16:23→20:44)
[2022-02-09] MEDS: cloBAZam 10 MG TABLET GT SCH (17:00)
[2022-02-09] MEDS ORDERED: PANTOPRAZOLE SODIUM 40 MG VIAL IVPUSH ONE (17:15)
[2022-02-09] MEDS ORDERED: LORazepam 2 MG/ML SDV VIAL IVPUSH PRN (18:27)
[2022-02-09] MEDS ORDERED: MIDAZOLAM HCL 2 MG/2 ML SINGLE DOSE VIAL IVPUSH ONE (18:33)
[2022-02-09] MEDS: KCL 10 MEQ IVPB 10 MEQ/100 ML INFUS.BAG IVPB SCH ×3 (20:30→22:30)
[2022-02-09] MEDS: POLYETHYLENE GLYCOL (HEALTHYLAX) 3350 17 GM PACKET GT SCH (21:29)
[2022-02-09] MEDS: FOLIC ACID 1 MG TABLET (FP) GT SCH (21:29)
[2022-02-09] MEDS: LORATADINE 10 MG TABLET GT SCH (21:29)
[2022-02-09] MEDS: CHLORHEXIDINE GLUCONATE 4% CLEANSER FOR DECOLONIZATION TP SCH (21:30)
[2022-02-09] MEDS: PSYLLIUM 5.85 GM PACKET GT SCH (21:31)
[2022-02-09] MEDS: SENNOSIDES 8.8 MG/5 ML BULK BOTTLE GT SCH (21:32)
[2022-02-09] MEDS: FAMOTIDINE 40 MG/5 ML ORAL SUSPENSION PEG SCH (21:32)
[2022-02-09] MEDS: LACTATED RINGERS SOLUTION 1,000 ML IV SCH (23:00)
[2022-02-10 00:55] LABS: BASO % 0.2 % (0-2.0); EOS % 0.8 % (0-4.5); HEMATOCRIT 22.4 % (35.4-49); HEMOGLOBIN 7.4 GM/dL (11.7-16.9); LYMPH % 7.1 % (8-40); MEAN CELL VOLUME 81.7 fl (80-96); MONO % 7.6 % (3.8-10.2); NEUT % 84.3 % (42.8-82.8); PLATELET COUNT 193 10^3/uL (134-434); RBC 2.74 M/mm3 (4.00-5.60); RDW 14.7 % (11.9-15.9); WHITE BLOOD COUNT 12.7 K/mm3 (4.0-10.0)
[2022-02-10] MEDS ORDERED: ACETYLCYSTEINE 20% 200MG/ML 4 ML VIAL *FOR ORAL / INH USE ONLY NEB ONE (01:00)
[2022-02-10] MEDS: PIPERACILLIN/TAZOB 3.375 GM 3.375 GM in DEXTROSE 5%-WATER - 50 ML IVPB SCH ×3 (02:04→18:18)
[2022-02-10] MEDS ORDERED: lamoTRIgine 25 MG TABLET PO SCH (05:00)
[2022-02-10] MEDS: levETIRAcetam 500 MG/5 ML ORAL SOLUTION (UNIT-DOSE CUPS) GT SCH ×5 (06:27→20:16)
[2022-02-10] MEDS: cloBAZam 10 MG TABLET GT SCH ×2 (06:28→18:19)
[2022-02-10] MEDS: lamoTRIgine 100 MG TABLET GT SCH ×3 (06:28→20:13)
[2022-02-10 08:00] LABS: BASO % 0.2 % (0-2.0); EOS % 1.2 % (0-4.5); HEMATOCRIT 20.6 % (35.4-49); LYMPH % 5.9 % (8-40); MCH 27.1 pg (25.7-33.7); MCHC 33.5 g/dl (32.0-35.9); MEAN CELL VOLUME 80.9 fl (80-96); MEAN PLT VOLUME 9.3 fl (7.5-11.1); MONO % 6.8 % (3.8-10.2); NEUT % 85.9 % (42.8-82.8); PLATELET COUNT 180 10^3/uL (134-434); RBC 2.54 M/mm3 (4.00-5.60); RDW 15.2 % (11.9-15.9); WHITE BLOOD COUNT 12.3 K/mm3 (4.0-10.0)
[2022-02-10 08:03] LABS: HEMOGLOBIN 6.9 GM/dL (11.7-16.9)
[2022-02-10 08:08] LABS: CHLORIDE 108 mmol/L (98-107); SODIUM 141 mmol/L (136-145)
[2022-02-10 08:16] LABS: SGPT/ALT 28 U/L (13-61)
[2022-02-10 08:17] LABS: ALBUMIN 2.6 g/dl (3.4-5.0); BLOOD UREA NITROGEN 3.5 mg/dL (7-18); GLUCOSE,RANDOM 106 mg/dL (74-106)
[2022-02-10 08:18] LABS: BILIRUBIN,TOTAL 0.3 mg/dL (0.2-1); TOT PROT 5.5 g/dl (6.4-8.2)
[2022-02-10 08:19] LABS: ALK PHOS 97 U/L (45-117); CALCIUM 7.5 mg/dL (8.5-10.1)
[2022-02-10 08:20] LABS: ANION GAP 9 MMOL/L (8-16); CO2 23 mmol/L (21-32); CREATININE 0.3 mg/dL (0.55-1.3); MAGNESIUM 1.8 mg/dL (1.8-2.4); SGOT/AST 20 U/L (15-37)
[2022-02-10 08:22] LABS: PHOSPHOROUS 0.8 mg/dL (2.5-4.9)
[2022-02-10] MEDS: BUDESONIDE 0.5 MG/2 ML INH SUSP VIAL NEB SCH ×2 (08:24→20:45)
[2022-02-10] MEDS ORDERED: POTASSIUM PHOSPHATE 30 MM in SODIUM CHLORIDE 250 ML IVPB ONE (08:49)
[2022-02-10] MEDS: amLODIPine BESYLATE 5 MG TABLET (FP) GT SCH (09:38)
[2022-02-10] MEDS: MAGNESIUM HYDROX 2400MG/30ML ORAL SUSPENSION 30 ML CUP GT SCH ×2 (09:38→22:12)
[2022-02-10] MEDS: FLUTICASONE PROP 0.05% 16 GM NASAL SPRAY NS SCH (09:38)
[2022-02-10] MEDS: MUPIROCIN 2% TOPICAL OINTMENT FOR DECOLONIZATION NS SCH ×2 (09:38→22:13)
[2022-02-10] MEDS: diazePAM 2 MG TABLET GT SCH ×2 (09:38→22:11)
[2022-02-10] MEDS: METOPROLOL TARTRATE 25 MG TABLET (FP) PEG SCH ×2 (09:38→22:11)
[2022-02-10] MEDS: MULTIVIT-MINERALS ORAL LIQUID GT SCH (09:39)
[2022-02-10 12:44] LABS: PHOSPHOROUS 1.5 mg/dL (2.5-4.9)
[2022-02-10 19:30] LABS: HEMATOCRIT 18.2 % (35.4-49); MCHC 33.1 g/dl (32.0-35.9); MEAN CELL VOLUME 81.6 fl (80-96); MEAN PLT VOLUME 8.9 fl (7.5-11.1); PLATELET COUNT 173 10^3/uL (134-434); RBC 2.24 M/mm3 (4.00-5.60); RDW 15.4 % (11.9-15.9); WHITE BLOOD COUNT 12.4 K/mm3 (4.0-10.0)
[2022-02-10] MEDS: FOLIC ACID 1 MG TABLET (FP) GT SCH (22:11)
[2022-02-10] MEDS: LORATADINE 10 MG TABLET GT SCH (22:11)
[2022-02-10] MEDS: POLYETHYLENE GLYCOL (HEALTHYLAX) 3350 17 GM PACKET GT SCH (22:12)
[2022-02-10] MEDS: FAMOTIDINE 40 MG/5 ML ORAL SUSPENSION PEG SCH (22:13)
[2022-02-10] MEDS: CHLORHEXIDINE GLUCONATE 4% CLEANSER FOR DECOLONIZATION TP SCH (22:13)
[2022-02-10] MEDS: PSYLLIUM 5.85 GM PACKET GT SCH (22:13)
[2022-02-10] MEDS: SENNOSIDES 8.8 MG/5 ML BULK BOTTLE GT SCH (22:14)
[2022-02-10] MEDS: LACTATED RINGERS SOLUTION 1,000 ML IV SCH (22:14)
[2022-02-11] MEDS ORDERED: LORazepam 2 MG/ML SDV VIAL IVPUSH PRN (02:33)
[2022-02-11] MEDS ORDERED: LACTATED RINGERS SOLUTION 1,000 ML IV SCH (02:33)
[2022-02-11] MEDS ORDERED: BISACODYL 10 MG SUPP.RECT RC PRN (02:33)
[2022-02-11] MEDS ORDERED: ZINC OXIDE 20% TOPICAL OINTMENT 30 GM TUBE TP PRN (02:33)
[2022-02-11] MEDS ORDERED: lamoTRIgine 25 MG TABLET PO SCH (05:00)
[2022-02-11] MEDS: cloBAZam 10 MG TABLET GT SCH ×2 (06:52→17:20)
[2022-02-11] MEDS: lamoTRIgine 100 MG TABLET GT SCH ×3 (06:53→21:15)
[2022-02-11] MEDS: BUDESONIDE 0.5 MG/2 ML INH SUSP VIAL NEB SCH ×2 (07:21→20:02)
[2022-02-11] MEDS: levETIRAcetam 500 MG/5 ML ORAL SOLUTION (UNIT-DOSE CUPS) GT SCH ×5 (07:40→23:28)
[2022-02-11] MEDS: MULTIVIT-MINERALS ORAL LIQUID GT SCH (09:32)
[2022-02-11] MEDS: PIPERACILLIN/TAZOB 3.375 GM 3.375 GM in DEXTROSE 5%-WATER - 50 ML IVPB SCH ×2 (09:32→17:20)
[2022-02-11] MEDS: amLODIPine BESYLATE 5 MG TABLET (FP) GT SCH (09:33)
[2022-02-11] MEDS: diazePAM 2 MG TABLET GT SCH ×2 (09:33→21:15)
[2022-02-11] MEDS: MAGNESIUM HYDROX 2400MG/30ML ORAL SUSPENSION 30 ML CUP GT SCH ×2 (09:37→21:16)
[2022-02-11] MEDS: METOPROLOL TARTRATE 25 MG TABLET (FP) PEG SCH ×2 (09:38→21:15)
[2022-02-11] MEDS ORDERED: MUPIROCIN 2% TOPICAL OINTMENT FOR DECOLONIZATION NS SCH (10:00)
[2022-02-11 10:17] LABS: BASO % 0.2 % (0-2.0); EOS % 4.6 % (0-4.5); HEMATOCRIT 25.2 % (35.4-49); HEMOGLOBIN 8.7 GM/dL (11.7-16.9); LYMPH % 10.8 % (8-40); MCH 28.2 pg (25.7-33.7); MCHC 34.5 g/dl (32.0-35.9); MEAN CELL VOLUME 81.8 fl (80-96); MEAN PLT VOLUME 8.9 fl (7.5-11.1); MONO % 8.8 % (3.8-10.2); NEUT % 75.6 % (42.8-82.8); PLATELET COUNT 154 10^3/uL (134-434); RBC 3.09 M/mm3 (4.00-5.60); RDW 15.3 % (11.9-15.9); WHITE BLOOD COUNT 10.3 K/mm3 (4.0-10.0)
[2022-02-11 10:38] LABS: CHLORIDE 109 mmol/L (98-107); SODIUM 144 mmol/L (136-145)
[2022-02-11 10:44] LABS: MAGNESIUM 1.6 mg/dL (1.8-2.4); SGPT/ALT 21 U/L (13-61)
[2022-02-11 10:45] LABS: CREATININE 0.3 mg/dL (0.55-1.3); SGOT/AST 14 U/L (15-37)
[2022-02-11 10:46] LABS: TOT PROT 5.3 g/dl (6.4-8.2)
[2022-02-11 10:48] LABS: ALBUMIN 2.3 g/dl (3.4-5.0); ALK PHOS 108 U/L (45-117); ANION GAP 8 MMOL/L (8-16); BILIRUBIN,TOTAL 0.8 mg/dL (0.2-1); BLOOD UREA NITROGEN 2.9 mg/dL (7-18); CALCIUM 7.7 mg/dL (8.5-10.1); CO2 27 mmol/L (21-32); GLUCOSE,RANDOM 77 mg/dL (74-106); PHOSPHOROUS 1.1 mg/dL (2.5-4.9)
[2022-02-11] MEDS ORDERED: KCL 10 MEQ IVPB 10 MEQ/100 ML INFUS.BAG IVPB SCH (12:30)
[2022-02-11] MEDS: FLUTICASONE PROP 0.05% 16 GM NASAL SPRAY NS SCH (13:14)
[2022-02-11] MEDS: NAPH,MB-DB/K PH,MBDB POWDER PACKET GT SCH ×2 (13:20→21:14)
[2022-02-11] MEDS ORDERED: POTASSIUM CHLORIDE ORAL LIQUID 20 MEQ/15 ML GT ONE (13:30)
[2022-02-11] MEDS ORDERED: lamoTRIgine 100 MG TABLET PO SCH (18:28)
[2022-02-11] MEDS: FAMOTIDINE 40 MG/5 ML ORAL SUSPENSION PEG SCH (21:14)
[2022-02-11] MEDS: PSYLLIUM 5.85 GM PACKET GT SCH (21:15)
[2022-02-11] MEDS: LORATADINE 10 MG TABLET GT SCH (21:15)
[2022-02-11] MEDS: FOLIC ACID 1 MG TABLET (FP) GT SCH (21:16)
[2022-02-11] MEDS: POLYETHYLENE GLYCOL (HEALTHYLAX) 3350 17 GM PACKET GT SCH (21:16)
[2022-02-11] MEDS: SENNOSIDES 8.8 MG/5 ML BULK BOTTLE GT SCH (21:17)
[2022-02-11] MEDS ORDERED: CHLORHEXIDINE GLUCONATE 4% CLEANSER FOR DECOLONIZATION TP SCH (22:00)
[2022-02-12] MEDS: PIPERACILLIN/TAZOB 3.375 GM 3.375 GM in DEXTROSE 5%-WATER - 50 ML IVPB SCH ×3 (01:55→17:09)
[2022-02-12] MEDS: levETIRAcetam 500 MG/5 ML ORAL SOLUTION (UNIT-DOSE CUPS) GT SCH ×5 (05:13→20:30)
[2022-02-12] MEDS: cloBAZam 10 MG TABLET GT SCH ×2 (05:14→17:09)
[2022-02-12] MEDS: lamoTRIgine 100 MG TABLET GT SCH ×4 (05:14→21:39)
[2022-02-12] MEDS: BUDESONIDE 0.5 MG/2 ML INH SUSP VIAL NEB SCH ×2 (08:45→21:09)
[2022-02-12] MEDS: MULTIVIT-MINERALS ORAL LIQUID GT SCH (10:16)
[2022-02-12] MEDS ORDERED: PIPERACILLIN/TAZOBACTAM 3.375 GM VIAL IVPB ONE (10:19)
[2022-02-12] MEDS: diazePAM 2 MG TABLET GT SCH ×2 (10:23→21:39)
[2022-02-12] MEDS: NAPH,MB-DB/K PH,MBDB POWDER PACKET GT SCH ×2 (10:23→21:39)
[2022-02-12] MEDS: amLODIPine BESYLATE 5 MG TABLET (FP) GT SCH (10:23)
[2022-02-12] MEDS: METOPROLOL TARTRATE 25 MG TABLET (FP) PEG SCH ×2 (10:23→21:38)
[2022-02-12] MEDS: MAGNESIUM HYDROX 2400MG/30ML ORAL SUSPENSION 30 ML CUP GT SCH ×2 (10:26→21:38)
[2022-02-12] MEDS: FLUTICASONE PROP 0.05% 16 GM NASAL SPRAY NS SCH (10:26)
[2022-02-12 11:01] LABS: BASO % 0.5 % (0-2.0); EOS % 7.8 % (0-4.5); HEMATOCRIT 24.3 % (35.4-49); HEMOGLOBIN 8.3 GM/dL (11.7-16.9); LYMPH % 17.1 % (8-40); MCH 28.1 pg (25.7-33.7); MCHC 34.2 g/dl (32.0-35.9); MEAN CELL VOLUME 82.2 fl (80-96); MEAN PLT VOLUME 8.6 fl (7.5-11.1); MONO % 8.6 % (3.8-10.2); PLATELET COUNT 180 10^3/uL (134-434); RBC 2.96 M/mm3 (4.00-5.60); RDW 15.4 % (11.9-15.9); WHITE BLOOD COUNT 8.2 K/mm3 (4.0-10.0)
[2022-02-12 11:30] LABS: CALCIUM 7.9 mg/dL (8.5-10.1)
[2022-02-12 11:31] LABS: ALBUMIN 2.3 g/dl (3.4-5.0); BLOOD UREA NITROGEN 3.6 mg/dL (7-18); MAGNESIUM 1.9 mg/dL (1.8-2.4)
[2022-02-12 11:34] LABS: CREATININE 0.3 mg/dL (0.55-1.3)
[2022-02-12 11:35] LABS: TOT PROT 5.5 g/dl (6.4-8.2)
[2022-02-12 11:36] LABS: BILIRUBIN,TOTAL 0.4 mg/dL (0.2-1)
[2022-02-12] MEDS: SCOPOLAMINE HYDROBROMIDE 1 PATCH PATCH.TD72 TD SCH (14:01)
[2022-02-12] MEDS: FOLIC ACID 1 MG TABLET (FP) GT SCH (21:38)
[2022-02-12] MEDS: LORATADINE 10 MG TABLET GT SCH (21:39)
[2022-02-12] MEDS: POLYETHYLENE GLYCOL (HEALTHYLAX) 3350 17 GM PACKET GT SCH (21:39)
[2022-02-12] MEDS: FAMOTIDINE 40 MG/5 ML ORAL SUSPENSION PEG SCH (21:40)
[2022-02-12] MEDS: SENNOSIDES 8.8 MG/5 ML BULK BOTTLE GT SCH (21:40)
[2022-02-12] MEDS: PSYLLIUM 5.85 GM PACKET GT SCH (21:44)
[2022-02-13] MEDS: PIPERACILLIN/TAZOB 3.375 GM 3.375 GM in DEXTROSE 5%-WATER - 50 ML IVPB SCH ×3 (02:48→17:27)
[2022-02-13] MEDS: lamoTRIgine 100 MG TABLET GT SCH ×4 (05:15→20:30)
[2022-02-13] MEDS: levETIRAcetam 500 MG/5 ML ORAL SOLUTION (UNIT-DOSE CUPS) GT SCH ×5 (05:15→20:30)
[2022-02-13] MEDS: cloBAZam 10 MG TABLET GT SCH ×2 (05:16→17:27)
[2022-02-13] MEDS: BUDESONIDE 0.5 MG/2 ML INH SUSP VIAL NEB SCH ×2 (08:06→20:00)
[2022-02-13] MEDS: diazePAM 2 MG TABLET GT SCH ×2 (10:18→21:39)
[2022-02-13] MEDS: MAGNESIUM HYDROX 2400MG/30ML ORAL SUSPENSION 30 ML CUP GT SCH ×2 (10:18→21:39)
[2022-02-13] MEDS: FLUTICASONE PROP 0.05% 16 GM NASAL SPRAY NS SCH (10:18)
[2022-02-13] MEDS: METOPROLOL TARTRATE 25 MG TABLET (FP) PEG SCH ×2 (10:18→21:39)
[2022-02-13] MEDS: POTASSIUM CHLORIDE ORAL LIQUID 20 MEQ/15 ML PO SCH ×2 (10:19→21:40)
[2022-02-13] MEDS: amLODIPine BESYLATE 5 MG TABLET (FP) GT SCH (10:19)
[2022-02-13] MEDS: NAPH,MB-DB/K PH,MBDB POWDER PACKET GT SCH ×2 (10:19→21:41)
[2022-02-13] MEDS: MULTIVIT-MINERALS ORAL LIQUID GT SCH (10:21)
[2022-02-13 14:01] LABS: BASO % 0.2 % (0-2.0); EOS % 6.8 % (0-4.5); HEMATOCRIT 24.3 % (35.4-49); HEMOGLOBIN 8.2 GM/dL (11.7-16.9); MCH 27.8 pg (25.7-33.7); MCHC 33.8 g/dl (32.0-35.9); MEAN CELL VOLUME 82.3 fl (80-96); MEAN PLT VOLUME 7.8 fl (7.5-11.1); PLATELET COUNT 228 10^3/uL (134-434); RBC 2.95 M/mm3 (4.00-5.60); RDW 15.8 % (11.9-15.9)
[2022-02-13 14:25] LABS: CALCIUM 8.2 mg/dL (8.5-10.1)
[2022-02-13 14:27] LABS: ALBUMIN 2.4 g/dl (3.4-5.0); BLOOD UREA NITROGEN 6.6 mg/dL (7-18)
[2022-02-13 14:29] LABS: CREATININE 0.3 mg/dL (0.55-1.3)
[2022-02-13 14:31] LABS: BILIRUBIN,TOTAL 0.3 mg/dL (0.2-1); TOT PROT 5.9 g/dl (6.4-8.2)
[2022-02-13] MEDS: LORATADINE 10 MG TABLET GT SCH (21:38)
[2022-02-13] MEDS: FOLIC ACID 1 MG TABLET (FP) GT SCH (21:39)
[2022-02-13] MEDS: POLYETHYLENE GLYCOL (HEALTHYLAX) 3350 17 GM PACKET GT SCH (21:40)
[2022-02-13] MEDS: PSYLLIUM 5.85 GM PACKET GT SCH (21:40)
[2022-02-13] MEDS: FAMOTIDINE 40 MG/5 ML ORAL SUSPENSION PEG SCH (21:41)
[2022-02-13] MEDS: SENNOSIDES 8.8 MG/5 ML BULK BOTTLE GT SCH (21:42)
[2022-02-14] MEDS: PIPERACILLIN/TAZOB 3.375 GM 3.375 GM in DEXTROSE 5%-WATER - 50 ML IVPB SCH ×3 (01:06→17:18)
[2022-02-14] MEDS: lamoTRIgine 100 MG TABLET GT SCH ×4 (05:41→20:30)
[2022-02-14] MEDS: levETIRAcetam 500 MG/5 ML ORAL SOLUTION (UNIT-DOSE CUPS) GT SCH ×5 (05:41→20:30)
[2022-02-14] MEDS: cloBAZam 10 MG TABLET GT SCH ×2 (05:41→17:18)
[2022-02-14] MEDS: NAPH,MB-DB/K PH,MBDB POWDER PACKET GT SCH ×3 (05:43→21:43)
[2022-02-14] MEDS: BUDESONIDE 0.5 MG/2 ML INH SUSP VIAL NEB SCH ×2 (07:55→19:40)
[2022-02-14 08:48] LABS: HEMATOCRIT 26.9 % (35.4-49); HEMOGLOBIN 9.1 GM/dL (11.7-16.9); MCH 28.4 pg (25.7-33.7); MCHC 33.9 g/dl (32.0-35.9); MEAN CELL VOLUME 83.8 fl (80-96); MEAN PLT VOLUME 8.3 fl (7.5-11.1); PLATELET COUNT 273 10^3/uL (134-434); RBC 3.21 M/mm3 (4.00-5.60); RDW 15.4 % (11.9-15.9); WHITE BLOOD COUNT 7.6 K/mm3 (4.0-10.0)
[2022-02-14 09:08] LABS: ALBUMIN 2.7 g/dl (3.4-5.0); BLOOD UREA NITROGEN 6.7 mg/dL (7-18); CALCIUM 8.6 mg/dL (8.5-10.1); MAGNESIUM 2.2 mg/dL (1.8-2.4)
[2022-02-14 09:11] LABS: BILIRUBIN,TOTAL 0.3 mg/dL (0.2-1); CREATININE 0.3 mg/dL (0.55-1.3); PHOSPHOROUS 1.9 mg/dL (2.5-4.9); TOT PROT 6.5 g/dl (6.4-8.2)
[2022-02-14 10:13] LABS: ANISOCYTOSIS 0; HELMET CELLS 0; HOWELL-JOLLY BODIES 0; MACROCYTOSIS 0; OVALOCYTE 0; ROULEAU 0; SICKELED CELLS 0; TARGET CELLS 0; TEAR DROP CELLS 0; TOXIC GRANULATION 0
[2022-02-14] MEDS: MAGNESIUM HYDROX 2400MG/30ML ORAL SUSPENSION 30 ML CUP GT SCH ×2 (10:20→21:43)
[2022-02-14] MEDS: POTASSIUM CHLORIDE ORAL LIQUID 20 MEQ/15 ML PO SCH ×2 (10:20→21:44)
[2022-02-14] MEDS: diazePAM 2 MG TABLET GT SCH ×2 (10:21→21:44)
[2022-02-14] MEDS: MULTIVIT-MINERALS ORAL LIQUID GT SCH (10:21)
[2022-02-14] MEDS: METOPROLOL TARTRATE 25 MG TABLET (FP) PEG SCH ×2 (10:21→21:44)
[2022-02-14] MEDS: amLODIPine BESYLATE 5 MG TABLET (FP) GT SCH (10:21)
[2022-02-14] MEDS: FLUTICASONE PROP 0.05% 16 GM NASAL SPRAY NS SCH (10:21)
[2022-02-14] MEDS ORDERED: POTASSIUM PHOSPHATE 15 MM in SODIUM CHLORIDE 250 ML IVPB ONE ×2 (10:44→13:30)
[2022-02-14] MEDS: ALBUTEROL SO4 2.5/IPRATROPIUM 0.5 INH SOL 3 ML VIAL.NEB. NEB PRN (19:50)
[2022-02-14] MEDS: FAMOTIDINE 40 MG/5 ML ORAL SUSPENSION PEG SCH (21:41)
[2022-02-14] MEDS: PSYLLIUM 5.85 GM PACKET GT SCH (21:42)
[2022-02-14] MEDS: SENNOSIDES 8.8 MG/5 ML BULK BOTTLE GT SCH (21:42)
[2022-02-14] MEDS: FOLIC ACID 1 MG TABLET (FP) GT SCH (21:44)
[2022-02-14] MEDS: POLYETHYLENE GLYCOL (HEALTHYLAX) 3350 17 GM PACKET GT SCH (21:44)
[2022-02-14] MEDS: LORATADINE 10 MG TABLET GT SCH (21:44)
[2022-02-15] MEDS: PIPERACILLIN/TAZOB 3.375 GM 3.375 GM in DEXTROSE 5%-WATER - 50 ML IVPB SCH ×3 (00:59→17:19)
[2022-02-15] MEDS: lamoTRIgine 100 MG TABLET GT SCH ×4 (05:00→21:30)
[2022-02-15] MEDS: levETIRAcetam 500 MG/5 ML ORAL SOLUTION (UNIT-DOSE CUPS) GT SCH ×5 (05:00→21:29)
[2022-02-15] MEDS: cloBAZam 10 MG TABLET GT SCH ×2 (05:35→17:19)
[2022-02-15] MEDS: NAPH,MB-DB/K PH,MBDB POWDER PACKET GT SCH ×3 (06:00→22:09)
[2022-02-15] MEDS: BUDESONIDE 0.5 MG/2 ML INH SUSP VIAL NEB SCH ×2 (08:30→20:12)
[2022-02-15 10:29] LABS: ALBUMIN 2.6 g/dl (3.4-5.0); BLOOD UREA NITROGEN 6.6 mg/dL (7-18); CALCIUM 8.9 mg/dL (8.5-10.1)
[2022-02-15 10:33] LABS: CREATININE 0.3 mg/dL (0.55-1.3)
[2022-02-15 10:34] LABS: TOT PROT 6.5 g/dl (6.4-8.2)
[2022-02-15] MEDS: diazePAM 2 MG TABLET GT SCH ×2 (10:37→22:04)
[2022-02-15] MEDS: MAGNESIUM HYDROX 2400MG/30ML ORAL SUSPENSION 30 ML CUP GT SCH ×2 (10:37→22:07)
[2022-02-15] MEDS: amLODIPine BESYLATE 5 MG TABLET (FP) GT SCH (10:37)
[2022-02-15] MEDS: METOPROLOL TARTRATE 25 MG TABLET (FP) PEG SCH ×2 (10:37→22:05)
[2022-02-15] MEDS: FLUTICASONE PROP 0.05% 16 GM NASAL SPRAY NS SCH (10:38)
[2022-02-15] MEDS: POTASSIUM CHLORIDE ORAL LIQUID 20 MEQ/15 ML PO SCH ×2 (10:38→21:29)
[2022-02-15] MEDS: MULTIVIT-MINERALS ORAL LIQUID GT SCH (10:38)
[2022-02-15 10:53] LABS: BILIRUBIN,TOTAL 0.3 mg/dL (0.2-1)
[2022-02-15 11:14] LABS: HEMATOCRIT 26.5 % (35.4-49); HEMOGLOBIN 8.7 GM/dL (11.7-16.9); MEAN CELL VOLUME 84.8 fl (80-96); MEAN PLT VOLUME 8.1 fl (7.5-11.1); PLATELET COUNT 286 10^3/uL (134-434); RBC 3.12 M/mm3 (4.00-5.60); RDW 15.8 % (11.9-15.9); WHITE BLOOD COUNT 7.5 K/mm3 (4.0-10.0)
[2022-02-15] MEDS ORDERED: IRON SUCROSE INJECTION 100 MG in SODIUM CHLORIDE 95 ML IVPB ONE (12:00)
[2022-02-15 12:13] LABS: ANISOCYTOSIS 0; HELMET CELLS 0; HOWELL-JOLLY BODIES 0; MACROCYTOSIS 0; OVALOCYTE 0; ROULEAU 0; SICKELED CELLS 0; TARGET CELLS 0; TEAR DROP CELLS 0; TOXIC GRANULATION 0
[2022-02-15] MEDS: SCOPOLAMINE HYDROBROMIDE 1 PATCH PATCH.TD72 TD SCH (14:49)
[2022-02-15] MEDS: FOLIC ACID 1 MG TABLET (FP) GT SCH (22:05)
[2022-02-15] MEDS: LORATADINE 10 MG TABLET GT SCH (22:05)
[2022-02-15] MEDS: PSYLLIUM 5.85 GM PACKET GT SCH (22:06)
[2022-02-15] MEDS: POLYETHYLENE GLYCOL (HEALTHYLAX) 3350 17 GM PACKET GT SCH (22:06)
[2022-02-15] MEDS: SENNOSIDES 8.8 MG/5 ML BULK BOTTLE GT SCH (22:08)
[2022-02-15] MEDS: FAMOTIDINE 40 MG/5 ML ORAL SUSPENSION PEG SCH (22:13)
[2022-02-16] MEDS: PIPERACILLIN/TAZOB 3.375 GM 3.375 GM in DEXTROSE 5%-WATER - 50 ML IVPB SCH ×3 (01:13→17:24)
[2022-02-16] MEDS: levETIRAcetam 500 MG/5 ML ORAL SOLUTION (UNIT-DOSE CUPS) GT SCH ×5 (05:52→23:02)
[2022-02-16] MEDS: lamoTRIgine 100 MG TABLET GT SCH ×4 (05:53→23:03)
[2022-02-16] MEDS: NAPH,MB-DB/K PH,MBDB POWDER PACKET GT SCH (05:53)
[2022-02-16] MEDS: cloBAZam 10 MG TABLET GT SCH ×2 (05:53→17:51)
[2022-02-16] MEDS: BUDESONIDE 0.5 MG/2 ML INH SUSP VIAL NEB SCH ×2 (07:50→20:14)
[2022-02-16] MEDS: ALBUTEROL SO4 2.5/IPRATROPIUM 0.5 INH SOL 3 ML VIAL.NEB. NEB PRN (08:00)
[2022-02-16] MEDS: METOPROLOL TARTRATE 25 MG TABLET (FP) PEG SCH ×2 (10:52→22:37)
[2022-02-16] MEDS: amLODIPine BESYLATE 5 MG TABLET (FP) GT SCH (10:52)
[2022-02-16] MEDS: diazePAM 2 MG TABLET GT SCH ×2 (10:53→22:36)
[2022-02-16] MEDS: FLUTICASONE PROP 0.05% 16 GM NASAL SPRAY NS SCH (10:54)
[2022-02-16] MEDS: MAGNESIUM HYDROX 2400MG/30ML ORAL SUSPENSION 30 ML CUP GT SCH ×2 (11:00→23:04)
[2022-02-16] MEDS: MULTIVIT-MINERALS ORAL LIQUID GT SCH (11:00)
[2022-02-16 11:26] LABS: BASO % 0.4 % (0-2.0); EOS % 3.4 % (0-4.5); HEMATOCRIT 31.2 % (35.4-49); HEMOGLOBIN 10.5 GM/dL (11.7-16.9); LYMPH % 14.5 % (8-40); MCH 28.1 pg (25.7-33.7); MCHC 33.5 g/dl (32.0-35.9); MEAN CELL VOLUME 83.9 fl (80-96); MONO % 11.2 % (3.8-10.2); NEUT % 70.5 % (42.8-82.8); RBC 3.73 M/mm3 (4.00-5.60); RDW 15.8 % (11.9-15.9); WHITE BLOOD COUNT 8.4 K/mm3 (4.0-10.0)
[2022-02-16 11:34] LABS: ALBUMIN 2.9 g/dl (3.4-5.0); MAGNESIUM 1.9 mg/dL (1.8-2.4)
[2022-02-16 11:37] LABS: CREATININE 0.4 mg/dL (0.55-1.3)
[2022-02-16] MEDS: POTASSIUM CHLORIDE ORAL LIQUID 20 MEQ/15 ML PO SCH (11:37)
[2022-02-16 11:38] LABS: BILIRUBIN,TOTAL 0.3 mg/dL (0.2-1); TOT PROT 6.9 g/dl (6.4-8.2)
[2022-02-16 12:52] LABS: PLATELET COUNT 320 10^3/uL (134-434)
[2022-02-16] MEDS: SODIUM CHLORIDE 1,000 ML IV SCH (14:13)
[2022-02-16] MEDS: LORATADINE 10 MG TABLET GT SCH (22:36)
[2022-02-16] MEDS: PSYLLIUM 5.85 GM PACKET GT SCH (23:03)
[2022-02-16] MEDS: FOLIC ACID 1 MG TABLET (FP) GT SCH (23:03)
[2022-02-16] MEDS: POLYETHYLENE GLYCOL (HEALTHYLAX) 3350 17 GM PACKET GT SCH (23:04)
[2022-02-17] MEDS: FAMOTIDINE 40 MG/5 ML ORAL SUSPENSION PEG SCH ×2 (02:16→21:25)
[2022-02-17] MEDS: SENNOSIDES 8.8 MG/5 ML BULK BOTTLE GT SCH ×2 (02:18→21:24)
[2022-02-17] MEDS: cloBAZam 10 MG TABLET GT SCH ×2 (06:44→17:36)
[2022-02-17] MEDS: levETIRAcetam 500 MG/5 ML ORAL SOLUTION (UNIT-DOSE CUPS) GT SCH ×5 (06:48→20:09)
[2022-02-17] MEDS: lamoTRIgine 100 MG TABLET GT SCH ×4 (07:35→20:10)
[2022-02-17] MEDS: PIPERACILLIN/TAZOB 3.375 GM 3.375 GM in DEXTROSE 5%-WATER - 50 ML IVPB SCH ×2 (07:40→09:45)
[2022-02-17] MEDS: BUDESONIDE 0.5 MG/2 ML INH SUSP VIAL NEB SCH ×2 (08:00→20:14)
[2022-02-17 09:45] LABS: BASO % 0.1 % (0-2.0); EOS % 4.1 % (0-4.5); HEMATOCRIT 26.5 % (35.4-49); HEMOGLOBIN 8.8 GM/dL (11.7-16.9); LYMPH % 15.9 % (8-40); MCH 27.7 pg (25.7-33.7); MCHC 33.4 g/dl (32.0-35.9); MEAN PLT VOLUME 7.4 fl (7.5-11.1); MONO % 13.8 % (3.8-10.2); NEUT % 66.1 % (42.8-82.8); PLATELET COUNT 372 10^3/uL (134-434); RBC 3.19 M/mm3 (4.00-5.60); RDW 15.9 % (11.9-15.9); WHITE BLOOD COUNT 6.8 K/mm3 (4.0-10.0)
[2022-02-17] MEDS: MAGNESIUM HYDROX 2400MG/30ML ORAL SUSPENSION 30 ML CUP GT SCH ×2 (09:45→21:26)
[2022-02-17] MEDS: MULTIVIT-MINERALS ORAL LIQUID GT SCH (09:45)
[2022-02-17] MEDS: diazePAM 2 MG TABLET GT SCH ×2 (09:46→21:25)
[2022-02-17] MEDS: SODIUM CHLORIDE 1,000 ML IV SCH (09:46)
[2022-02-17] MEDS: amLODIPine BESYLATE 5 MG TABLET (FP) GT SCH (09:46)
[2022-02-17] MEDS: METOPROLOL TARTRATE 25 MG TABLET (FP) PEG SCH ×2 (09:46→21:25)
[2022-02-17] MEDS: FLUTICASONE PROP 0.05% 16 GM NASAL SPRAY NS SCH (10:20)
[2022-02-17 10:45] LABS: ALBUMIN 2.5 g/dl (3.4-5.0); BLOOD UREA NITROGEN 7.8 mg/dL (7-18); MAGNESIUM 1.7 mg/dL (1.8-2.4)
[2022-02-17 10:47] LABS: CREATININE 0.4 mg/dL (0.55-1.3)
[2022-02-17 10:49] LABS: BILIRUBIN,TOTAL 0.5 mg/dL (0.2-1); TOT PROT 6.3 g/dl (6.4-8.2)
[2022-02-17 10:53] LABS: CALCIUM 8.8 mg/dL (8.5-10.1)
[2022-02-17] MEDS: FOLIC ACID 1 MG TABLET (FP) GT SCH (21:25)
[2022-02-17] MEDS: LORATADINE 10 MG TABLET GT SCH (21:25)
[2022-02-17] MEDS: POLYETHYLENE GLYCOL (HEALTHYLAX) 3350 17 GM PACKET GT SCH (21:26)
[2022-02-17] MEDS: PSYLLIUM 5.85 GM PACKET GT SCH (21:26)
[2022-02-18] MEDS: levETIRAcetam 500 MG/5 ML ORAL SOLUTION (UNIT-DOSE CUPS) GT SCH ×5 (05:03→22:35)
[2022-02-18] MEDS: lamoTRIgine 100 MG TABLET GT SCH ×4 (05:05→22:34)
[2022-02-18] MEDS: BUDESONIDE 0.5 MG/2 ML INH SUSP VIAL NEB SCH ×2 (07:50→20:49)
[2022-02-18] MEDS: ALBUTEROL SO4 2.5/IPRATROPIUM 0.5 INH SOL 3 ML VIAL.NEB. NEB PRN (08:00)
[2022-02-18] MEDS: METOPROLOL TARTRATE 25 MG TABLET (FP) PEG SCH ×2 (09:51→22:34)
[2022-02-18] MEDS: amLODIPine BESYLATE 5 MG TABLET (FP) GT SCH (09:51)
[2022-02-18] MEDS: MULTIVIT-MINERALS ORAL LIQUID GT SCH (09:52)
[2022-02-18] MEDS: FLUTICASONE PROP 0.05% 16 GM NASAL SPRAY NS SCH (09:54)
[2022-02-18] MEDS: SODIUM CHLORIDE 1,000 ML IV SCH (10:00)
[2022-02-18] MEDS: MAGNESIUM HYDROX 2400MG/30ML ORAL SUSPENSION 30 ML CUP GT SCH ×2 (10:14→22:33)
[2022-02-18 10:17] LABS: ALBUMIN 2.3 g/dl (3.4-5.0); BLOOD UREA NITROGEN 5.4 mg/dL (7-18); CALCIUM 8.2 mg/dL (8.5-10.1); MAGNESIUM 1.6 mg/dL (1.8-2.4)
[2022-02-18 10:20] LABS: CREATININE 0.4 mg/dL (0.55-1.3)
[2022-02-18 10:22] LABS: BILIRUBIN,TOTAL 0.1 mg/dL (0.2-1)
[2022-02-18 11:47] VITALS: RESP 18
[2022-02-18] MEDS: SCOPOLAMINE HYDROBROMIDE 1 PATCH PATCH.TD72 TD SCH (13:31)
[2022-02-18] MEDS: POLYETHYLENE GLYCOL (HEALTHYLAX) 3350 17 GM PACKET GT SCH (22:33)
[2022-02-18] MEDS: SENNOSIDES 8.8 MG/5 ML BULK BOTTLE GT SCH (22:33)
[2022-02-18] MEDS: PSYLLIUM 5.85 GM PACKET GT SCH (22:34)
[2022-02-18] MEDS: FOLIC ACID 1 MG TABLET (FP) GT SCH (22:34)
[2022-02-18] MEDS: LORATADINE 10 MG TABLET GT SCH (22:34)
[2022-02-18] MEDS: FAMOTIDINE 40 MG/5 ML ORAL SUSPENSION PEG SCH (22:34)
[2022-02-19 05:37] VITALS: TEMP 98.4
[2022-02-19] MEDS: levETIRAcetam 500 MG/5 ML ORAL SOLUTION (UNIT-DOSE CUPS) GT SCH ×2 (06:27)
[2022-02-19] MEDS: lamoTRIgine 100 MG TABLET GT SCH ×2 (06:27→06:28)
[2022-02-19] MEDS: BUDESONIDE 0.5 MG/2 ML INH SUSP VIAL NEB SCH (07:21)
[2022-02-19] MEDS: METOPROLOL TARTRATE 25 MG TABLET (FP) PEG SCH (10:03)
[2022-02-19] MEDS: MAGNESIUM HYDROX 2400MG/30ML ORAL SUSPENSION 30 ML CUP GT SCH (10:03)
[2022-02-19] MEDS: amLODIPine BESYLATE 5 MG TABLET (FP) GT SCH (10:04)
[2022-02-19] MEDS: MULTIVIT-MINERALS ORAL LIQUID GT SCH (10:04)
[2022-02-19] MEDS: FLUTICASONE PROP 0.05% 16 GM NASAL SPRAY NS SCH (10:14)
[2022-02-19 11:53] VITALS: BP 145/84; PULSE 87
== END 2022-02-19 14:08 | disposition home or self-care (01) | DRG 951 ==
LOC: JER 09:47 → JERBED 13:30 → J4W 14:55 → J6S 02-06 01:25 → JICU 02-08 23:25 → J6S 02-11 01:14
PROVIDERS: ADMIT Internal Medicine; ATTEND Nurse Practitioner Acute Care
PROC: 0T7D8ZZ Dilation of Urethra, Via Natural or Artificial Opening Endoscopic (ICD-10-PCS; 2022-02-08)
PROC: 3E1K88Z Irrigation of Genitourinary Tract using Irrigating Substance, Via Natural or Artificial Opening Endoscopic (ICD-10-PCS; 2022-02-08)
PROC: 0TCB8ZZ Extirpation of Matter from Bladder, Via Natural or Artificial Opening Endoscopic (ICD-10-PCS; 2022-02-08)
PROC: 0T2BX0Z Change Drainage Device in Bladder, External Approach (ICD-10-PCS; 2022-02-08)
PROC: 0T9B0ZZ Drainage of Bladder, Open Approach (ICD-10-PCS; principal; 2022-02-08 15:30)
PROC: 30233N1 Transfusion of Nonautologous Red Blood Cells into Peripheral Vein, Percutaneous Approach (ICD-10-PCS; 2022-02-09)
PROC: 05HM33Z Insertion of Infusion Device into Right Internal Jugular Vein, Percutaneous Approach (ICD-10-PCS; 2022-02-09)
PROC: B543ZZA Ultrasonography of Right Jugular Veins, Guidance (ICD-10-PCS; 2022-02-09)
DX: G40.109 Localization-related (focal) (partial) symptomatic epilepsy and epileptic syndromes with simple partial seizures, not intractable, without status epilepticus (principal); G91.1 Obstructive hydrocephalus; J69.0 Pneumonitis due to inhalation of food and vomit; R53.2 Functional quadriplegia; F73 Profound intellectual disabilities; G80.8 Other cerebral palsy; I16.0 Hypertensive urgency; N99.820 Postprocedural hemorrhage of a genitourinary system organ or structure following a genitourinary system procedure; T83.091A Other mechanical complication of indwelling urethral catheter, initial encounter; E87.6 Hypokalemia; K59.00 Constipation, unspecified; J45.909 Unspecified asthma, uncomplicated; Q67.5 Congenital deformity of spine; N32.89 Other specified disorders of bladder; N31.9 Neuromuscular dysfunction of bladder, unspecified; Q54.9 Hypospadias, unspecified; N39.0 Urinary tract infection, site not specified; B95.2 Enterococcus as the cause of diseases classified elsewhere; J96.01 Acute respiratory failure with hypoxia; D62 Acute posthemorrhagic anemia; R31.9 Hematuria, unspecified; E83.39 Other disorders of phosphorus metabolism; R62.50 Unspecified lack of expected normal physiological development in childhood; N36.8 Other specified disorders of urethra; S39.848A Other specified injuries of external genitals, initial encounter; X58.XXXA Exposure to other specified factors, initial encounter; Y92.89 Other specified places as the place of occurrence of the external cause; Y99.8 Other external cause status
CPT/HCPCS: 0241U-QW; 36415; 36430; 71045-TC-FY; 80048; 80053; 80175; 80177; 81003; 82553; 82607; 82746; 82803; 83540; 83550; 83605; 83735; 84100; 84484; 85025; 85027; 85610; 85730; 86850; 86900; 86901; 86922; 87040; 87086; 87186; 93005; 93010; 93970-TC; 94640; 94760; 99285-25; J1756; P9058

== ENCOUNTER 2022-04-02 15:58 | Inpatient (IN) | payer OTHER ==
[2022-04-02 18:29] LABS: EPI CELLS 2 /uL (0-25.1); HYALINE CASTS 10 /uL (0-3.1); PH,URINE 8.5 (5.0-8.0); URINE APPEARANCE CLOUDY; URINE BACTERIA 6659 /uL (0-1359); URINE BILIRUBIN NEGATIVE (NEGATIVE); URINE COLOR YELLOW; URINE GLUCOSE (UA) NEGATIVE (NEGATIVE); URINE KETONE NEGATIVE (NEGATIVE); URINE LEUK ESTERASE 3+ (NEGATIVE); URINE NITRITE POSITIVE (NEGATIVE); URINE PROTEIN 1+ (NEGATIVE); URINE RBC 731 /uL (0-23.9); URINE UROBILINOGEN 0.2 mg/dL (0.2-1.0); URINE WBC 832 /uL (0-25.8)
[2022-04-02] MEDS ORDERED: SODIUM CHLORIDE 0.9% 500 ML INFUS.BAG IV ONE (19:52)
[2022-04-02] MEDS ORDERED: CEFTRIAXONE 1,000 MG in DEXTROSE 5%-WATER - 50 ML IVPB ONE (19:52)
[2022-04-02 22:10] LABS: BASO % 0.3 % (0-2.0); EOS % 6.8 % (0-4.5); HEMATOCRIT 42.1 % (35.4-49); HEMOGLOBIN 13.7 GM/dL (11.7-16.9); LYMPH % 18.6 % (8-40); MCH 26.6 pg (25.7-33.7); MCHC 32.7 g/dl (32.0-35.9); MEAN CELL VOLUME 81.4 fl (80-96); MEAN PLT VOLUME 8.4 fl (7.5-11.1); MONO % 10.2 % (3.8-10.2); NEUT % 64.1 % (42.8-82.8); PLATELET COUNT 275 10^3/uL (134-434); RBC 5.17 M/mm3 (4.00-5.60); RDW 16.8 % (11.9-15.9); WHITE BLOOD COUNT 10.3 K/mm3 (4.0-10.0)
[2022-04-02 22:30] LABS: CALCIUM 9.8 mg/dL (8.5-10.1)
[2022-04-02 22:31] LABS: ALBUMIN 4.1 g/dl (3.4-5.0); BLOOD UREA NITROGEN 10.2 mg/dL (7-18)
[2022-04-02 22:34] LABS: CREATININE 0.7 mg/dL (0.55-1.3)
[2022-04-02 22:35] LABS: BILIRUBIN,TOTAL 0.3 mg/dL (0.2-1)
[2022-04-02 22:36] LABS: TOT PROT 8.6 g/dl (6.4-8.2)
[2022-04-03] MEDS ORDERED: CEFTRIAXONE 1 GM/50 ML BAG ONE (02:57)
[2022-04-03] MEDS ORDERED: FLU VACC QS2022-23(6MOS UP)/PF 60 MCG/0.5 ML SYRINGE IM ONE (10:00)
[2022-04-03] MEDS ORDERED: lamoTRIgine 25 MG TABLET PO SCH (12:15)
[2022-04-03] MEDS ORDERED: levETIRAcetam 250 MG TABLET PO SCH (12:15)
[2022-04-03] MEDS: cloBAZam 10 MG TABLET PO SCH ×2 (14:41→22:16)
[2022-04-03] MEDS: ENOXAPARIN NA (PORCINE) 40 MG/0.4 ML DISP.SYRIN SQ SCH (14:41)
[2022-04-03] MEDS: diazePAM 2 MG TABLET GT SCH ×2 (14:41→22:16)
[2022-04-03] MEDS ORDERED: BISACODYL 10 MG SUPP.RECT RC PRN (14:50)
[2022-04-03] MEDS ORDERED: guaiFENesin 600 MG TABLET.ER (FP) PO PRN (14:50)
[2022-04-03] MEDS ORDERED: LORazepam 2 MG/ML SDV VIAL IVPUSH PRN (14:50)
[2022-04-03] MEDS ORDERED: diazePAM RECTAL GEL 10 MG KIT (PRE-CALIBRATED) RC SCH (15:00)
[2022-04-03 15:39] VITALS: BMI 33.5
[2022-04-03] MEDS ORDERED: levETIRAcetam 500 MG/5 ML ORAL SOLUTION (UNIT-DOSE CUPS) PO SCH (16:35)
[2022-04-03] MEDS: SCOPOLAMINE HYDROBROMIDE 1 PATCH PATCH.TD72 TD SCH (17:59)
[2022-04-03] MEDS: lamoTRIgine 100 MG TABLET GT SCH ×2 (19:38→22:17)
[2022-04-03] MEDS ORDERED: BUDESONIDE 0.5 MG/2 ML INH SUSP VIAL NEB SCH (20:00)
[2022-04-03] MEDS ORDERED: METHYLCELLULOSE 500 MG GT SCH (22:00)
[2022-04-03] MEDS: POLYETHYLENE GLYCOL (HEALTHYLAX) 3350 17 GM PACKET GT SCH (22:16)
[2022-04-03] MEDS: METOPROLOL TARTRATE 50 MG TABLET (FP) PEG SCH (22:16)
[2022-04-03] MEDS: levETIRAcetam 500 MG/5 ML ORAL SOLUTION (UNIT-DOSE CUPS) GT SCH (22:16)
[2022-04-03] MEDS: FOLIC ACID 1 MG TABLET (FP) GT SCH (22:16)
[2022-04-03] MEDS: FAMOTIDINE 20 MG TABLET PEG SCH (22:16)
[2022-04-03] MEDS: MAGNESIUM HYDROX 2400MG/30ML ORAL SUSPENSION 30 ML CUP GT SCH (22:17)
[2022-04-03] MEDS: PSYLLIUM 5.85 GM PACKET GT SCH (22:17)
[2022-04-03] MEDS: SENNOSIDES 8.8 MG/5 ML BULK BOTTLE PO SCH (22:18)
[2022-04-04] MEDS: levETIRAcetam 500 MG/5 ML ORAL SOLUTION BULK GT SCH (06:18)
[2022-04-04] MEDS: lamoTRIgine 100 MG TABLET GT SCH ×3 (06:18→23:35)
[2022-04-04] MEDS: MAGNESIUM HYDROX 2400MG/30ML ORAL SUSPENSION 30 ML CUP GT SCH ×2 (10:15→23:34)
[2022-04-04] MEDS: ENOXAPARIN NA (PORCINE) 40 MG/0.4 ML DISP.SYRIN SQ SCH (10:15)
[2022-04-04] MEDS: METOPROLOL TARTRATE 50 MG TABLET (FP) PEG SCH ×2 (10:16→23:35)
[2022-04-04] MEDS: MULTIVIT-MINERALS ORAL LIQUID GT SCH (10:18)
[2022-04-04] MEDS: diazePAM 2 MG TABLET GT SCH ×2 (10:19→23:36)
[2022-04-04] MEDS: amLODIPine BESYLATE 5 MG TABLET (FP) GT SCH (10:19)
[2022-04-04] MEDS: FLUTICASONE PROP 0.05% 16 GM NASAL SPRAY NS SCH (10:21)
[2022-04-04] MEDS: ZINC OXIDE 20% TOPICAL OINTMENT 30 GM TUBE TP PRN (10:22)
[2022-04-04] MEDS: cloBAZam 10 MG TABLET PO SCH ×2 (10:25→23:35)
[2022-04-04 10:44] LABS: BASO % 0.3 % (0-2.0); EOS % 7.7 % (0-4.5); HEMATOCRIT 40.2 % (35.4-49); HEMOGLOBIN 13.4 GM/dL (11.7-16.9); LYMPH % 17.3 % (8-40); MCH 27.1 pg (25.7-33.7); MCHC 33.3 g/dl (32.0-35.9); MEAN CELL VOLUME 81.6 fl (80-96); MEAN PLT VOLUME 8.7 fl (7.5-11.1); MONO % 11.1 % (3.8-10.2); NEUT % 63.6 % (42.8-82.8); PLATELET COUNT 251 10^3/uL (134-434); RBC 4.92 M/mm3 (4.00-5.60); RDW 16.5 % (11.9-15.9)
[2022-04-04 11:03] LABS: ALBUMIN 3.4 g/dl (3.4-5.0); BLOOD UREA NITROGEN 16.3 mg/dL (7-18); CALCIUM 9.2 mg/dL (8.5-10.1)
[2022-04-04 11:04] LABS: MAGNESIUM 2.4 mg/dL (1.8-2.4)
[2022-04-04 11:06] LABS: CREATININE 0.5 mg/dL (0.55-1.3); PHOSPHOROUS 3.1 mg/dL (2.5-4.9)
[2022-04-04 11:08] LABS: BILIRUBIN,TOTAL 0.4 mg/dL (0.2-1); TOT PROT 7.6 g/dl (6.4-8.2)
[2022-04-04] MEDS ORDERED: BUDESONIDE 0.5 MG/2 ML INH SUSP VIAL NEB SCH (11:45)
[2022-04-04] MEDS: levETIRAcetam 500 MG/5 ML ORAL SOLUTION (UNIT-DOSE CUPS) GT SCH ×2 (14:26→23:34)
[2022-04-04] MEDS ORDERED: ALBUTEROL SO4 0.083% IH SOL 2.5 MG/3 ML VIAL.NEB. NEB PRN (15:22)
[2022-04-04] MEDS ORDERED: ALBUTEROL SO4 2.5/IPRATROPIUM 0.5 INH SOL 3 ML VIAL.NEB. NEB PRN (15:22)
[2022-04-04] MEDS: BUDESONIDE 0.5 MG/2 ML INH SUSP VIAL NEB SCH (20:05)
[2022-04-04] MEDS ORDERED: FEXOFENADINE HCL 60 MG GT SCH (22:00)
[2022-04-04] MEDS: POLYETHYLENE GLYCOL (HEALTHYLAX) 3350 17 GM PACKET GT SCH (23:34)
[2022-04-04] MEDS: LORATADINE 10 MG TABLET GT SCH (23:35)
[2022-04-04] MEDS: FAMOTIDINE 20 MG TABLET PEG SCH (23:36)
[2022-04-04] MEDS: SENNOSIDES 8.8 MG/5 ML BULK BOTTLE PO SCH (23:36)
[2022-04-04] MEDS: FOLIC ACID 1 MG TABLET (FP) GT SCH (23:36)
[2022-04-04] MEDS: PSYLLIUM 5.85 GM PACKET GT SCH (23:36)
[2022-04-05] MEDS: levETIRAcetam 500 MG/5 ML ORAL SOLUTION BULK GT SCH (06:40)
[2022-04-05] MEDS: lamoTRIgine 100 MG TABLET GT SCH ×3 (06:40→22:45)
[2022-04-05] MEDS: BUDESONIDE 0.5 MG/2 ML INH SUSP VIAL NEB SCH ×2 (07:43→20:23)
[2022-04-05] MEDS: ENOXAPARIN NA (PORCINE) 40 MG/0.4 ML DISP.SYRIN SQ SCH (10:04)
[2022-04-05] MEDS: METOPROLOL TARTRATE 50 MG TABLET (FP) PEG SCH ×2 (10:06→21:50)
[2022-04-05] MEDS: amLODIPine BESYLATE 5 MG TABLET (FP) GT SCH (10:08)
[2022-04-05] MEDS: MULTIVIT-MINERALS ORAL LIQUID GT SCH (10:08)
[2022-04-05] MEDS: diazePAM 2 MG TABLET GT SCH ×2 (10:08→21:50)
[2022-04-05] MEDS: MAGNESIUM HYDROX 2400MG/30ML ORAL SUSPENSION 30 ML CUP GT SCH ×2 (10:08→21:49)
[2022-04-05] MEDS: cloBAZam 10 MG TABLET PO SCH ×2 (10:09→21:50)
[2022-04-05] MEDS: FLUTICASONE PROP 0.05% 16 GM NASAL SPRAY NS SCH (10:13)
[2022-04-05] MEDS: levETIRAcetam 500 MG/5 ML ORAL SOLUTION (UNIT-DOSE CUPS) GT SCH ×2 (14:37→21:49)
[2022-04-05] MEDS: FOLIC ACID 1 MG TABLET (FP) GT SCH (21:50)
[2022-04-05] MEDS: POLYETHYLENE GLYCOL (HEALTHYLAX) 3350 17 GM PACKET GT SCH (21:50)
[2022-04-05] MEDS: FAMOTIDINE 20 MG TABLET PEG SCH (21:50)
[2022-04-05] MEDS: LORATADINE 10 MG TABLET GT SCH (21:50)
[2022-04-05] MEDS: PSYLLIUM 5.85 GM PACKET GT SCH (22:45)
[2022-04-05] MEDS: SENNOSIDES 8.8 MG/5 ML BULK BOTTLE PO SCH (22:45)
[2022-04-06] MEDS: lamoTRIgine 100 MG TABLET GT SCH ×3 (05:15→21:20)
[2022-04-06] MEDS: levETIRAcetam 500 MG/5 ML ORAL SOLUTION BULK GT SCH (06:11)
[2022-04-06] MEDS: FLUTICASONE PROP 0.05% 16 GM NASAL SPRAY NS SCH (09:56)
[2022-04-06] MEDS: MAGNESIUM HYDROX 2400MG/30ML ORAL SUSPENSION 30 ML CUP GT SCH ×2 (09:57→21:18)
[2022-04-06] MEDS: ENOXAPARIN NA (PORCINE) 40 MG/0.4 ML DISP.SYRIN SQ SCH (09:57)
[2022-04-06] MEDS: diazePAM 2 MG TABLET GT SCH ×2 (09:58→21:19)
[2022-04-06] MEDS: METOPROLOL TARTRATE 50 MG TABLET (FP) PEG SCH ×2 (09:58→21:19)
[2022-04-06] MEDS: amLODIPine BESYLATE 5 MG TABLET (FP) GT SCH (09:58)
[2022-04-06] MEDS: MULTIVIT-MINERALS ORAL LIQUID GT SCH (09:58)
[2022-04-06] MEDS: cloBAZam 10 MG TABLET PO SCH ×2 (09:58→21:19)
[2022-04-06] MEDS: BUDESONIDE 0.5 MG/2 ML INH SUSP VIAL NEB SCH ×2 (10:04→20:16)
[2022-04-06] MEDS: PIPERACILLIN/TAZOB 3.375 GM 3.375 GM in DEXTROSE 5%-WATER - 50 ML IVPB SCH ×2 (12:40→17:22)
[2022-04-06] MEDS: levETIRAcetam 500 MG/5 ML ORAL SOLUTION (UNIT-DOSE CUPS) GT SCH ×2 (13:47→21:19)
[2022-04-06] MEDS: SCOPOLAMINE HYDROBROMIDE 1 PATCH PATCH.TD72 TD SCH (14:29)
[2022-04-06 16:20] LABS: HEMOGLOBIN 12.1 GM/dL (11.7-16.9); MCH 25.7 pg (25.7-33.7); MCHC 31.1 g/dl (32.0-35.9); MEAN CELL VOLUME 82.6 fl (80-96); MEAN PLT VOLUME 9.1 fl (7.5-11.1); PLATELET COUNT 210 10^3/uL (134-434); RBC 4.72 M/mm3 (4.00-5.60); RDW 16.7 % (11.9-15.9); WHITE BLOOD COUNT 5.8 K/mm3 (4.0-10.0)
[2022-04-06 16:33] LABS: CALCIUM 8.9 mg/dL (8.5-10.1)
[2022-04-06 16:34] LABS: ALBUMIN 3.1 g/dl (3.4-5.0); BLOOD UREA NITROGEN 9.9 mg/dL (7-18)
[2022-04-06 16:37] LABS: CREATININE 0.4 mg/dL (0.55-1.3)
[2022-04-06 16:38] LABS: BILIRUBIN,TOTAL 0.3 mg/dL (0.2-1)
[2022-04-06] MEDS: LORATADINE 10 MG TABLET GT SCH (21:19)
[2022-04-06] MEDS: FAMOTIDINE 20 MG TABLET PEG SCH (21:19)
[2022-04-06] MEDS: FOLIC ACID 1 MG TABLET (FP) GT SCH (21:19)
[2022-04-06] MEDS: POLYETHYLENE GLYCOL (HEALTHYLAX) 3350 17 GM PACKET GT SCH (21:19)
[2022-04-06] MEDS: SENNOSIDES 8.8 MG/5 ML BULK BOTTLE PO SCH (21:20)
[2022-04-06] MEDS: PSYLLIUM 5.85 GM PACKET GT SCH (21:20)
[2022-04-07] MEDS: PIPERACILLIN/TAZOB 3.375 GM 3.375 GM in DEXTROSE 5%-WATER - 50 ML IVPB SCH ×3 (02:10→17:28)
[2022-04-07] MEDS: levETIRAcetam 500 MG/5 ML ORAL SOLUTION BULK GT SCH (06:19)
[2022-04-07] MEDS: lamoTRIgine 100 MG TABLET GT SCH ×3 (06:20→20:55)
[2022-04-07] MEDS ORDERED: INSULIN (NOVOLOG) ASPART 100 UNITS/ML 10ML VIAL ONE (06:50)
[2022-04-07] MEDS: BUDESONIDE 0.5 MG/2 ML INH SUSP VIAL NEB SCH ×2 (07:30→19:17)
[2022-04-07] MEDS: METOPROLOL TARTRATE 50 MG TABLET (FP) PEG SCH ×2 (11:00→21:54)
[2022-04-07] MEDS: MAGNESIUM HYDROX 2400MG/30ML ORAL SUSPENSION 30 ML CUP GT SCH ×2 (11:00→21:57)
[2022-04-07] MEDS: cloBAZam 10 MG TABLET PO SCH ×2 (11:00→21:54)
[2022-04-07] MEDS: FLUTICASONE PROP 0.05% 16 GM NASAL SPRAY NS SCH (11:00)
[2022-04-07] MEDS: amLODIPine BESYLATE 5 MG TABLET (FP) GT SCH (11:00)
[2022-04-07] MEDS: ENOXAPARIN NA (PORCINE) 40 MG/0.4 ML DISP.SYRIN SQ SCH (11:00)
[2022-04-07] MEDS: diazePAM 2 MG TABLET GT SCH ×2 (11:00→21:54)
[2022-04-07] MEDS: MULTIVIT-MINERALS ORAL LIQUID GT SCH (11:12)
[2022-04-07] MEDS: levETIRAcetam 500 MG/5 ML ORAL SOLUTION (UNIT-DOSE CUPS) GT SCH ×2 (13:05→21:57)
[2022-04-07] MEDS: FAMOTIDINE 20 MG TABLET PEG SCH (21:54)
[2022-04-07] MEDS: FOLIC ACID 1 MG TABLET (FP) GT SCH (21:54)
[2022-04-07] MEDS: LORATADINE 10 MG TABLET GT SCH (21:54)
[2022-04-07] MEDS: POLYETHYLENE GLYCOL (HEALTHYLAX) 3350 17 GM PACKET GT SCH (21:55)
[2022-04-07] MEDS: SENNOSIDES 8.8 MG/5 ML BULK BOTTLE PO SCH (21:55)
[2022-04-07] MEDS: PSYLLIUM 5.85 GM PACKET GT SCH (21:56)
[2022-04-08] MEDS: PIPERACILLIN/TAZOB 3.375 GM 3.375 GM in DEXTROSE 5%-WATER - 50 ML IVPB SCH ×3 (01:48→17:55)
[2022-04-08] MEDS: levETIRAcetam 500 MG/5 ML ORAL SOLUTION BULK GT SCH (06:31)
[2022-04-08] MEDS: lamoTRIgine 100 MG TABLET GT SCH ×3 (06:31→21:00)
[2022-04-08] MEDS: BUDESONIDE 0.5 MG/2 ML INH SUSP VIAL NEB SCH ×2 (07:41→20:17)
[2022-04-08] MEDS ORDERED: INSULIN (NOVOLOG) ASPART 100 UNITS/ML 10ML VIAL ONE (07:47)
[2022-04-08] MEDS: ENOXAPARIN NA (PORCINE) 40 MG/0.4 ML DISP.SYRIN SQ SCH (10:08)
[2022-04-08] MEDS: METOPROLOL TARTRATE 50 MG TABLET (FP) PEG SCH ×2 (10:09→21:07)
[2022-04-08] MEDS: cloBAZam 10 MG TABLET PO SCH ×2 (10:11→21:09)
[2022-04-08] MEDS: diazePAM 2 MG TABLET GT SCH ×2 (10:11→21:09)
[2022-04-08] MEDS: amLODIPine BESYLATE 5 MG TABLET (FP) GT SCH (10:11)
[2022-04-08] MEDS: MAGNESIUM HYDROX 2400MG/30ML ORAL SUSPENSION 30 ML CUP GT SCH ×2 (10:12→21:02)
[2022-04-08] MEDS: MULTIVIT-MINERALS ORAL LIQUID GT SCH (10:12)
[2022-04-08] MEDS: FLUTICASONE PROP 0.05% 16 GM NASAL SPRAY NS SCH (10:12)
[2022-04-08 11:46] LABS: HEMATOCRIT 35.3 % (35.4-49); HEMOGLOBIN 11.2 GM/dL (11.7-16.9); MCH 25.7 pg (25.7-33.7); MCHC 31.7 g/dl (32.0-35.9); MEAN CELL VOLUME 81.3 fl (80-96); PLATELET COUNT 196 10^3/uL (134-434); RBC 4.35 M/mm3 (4.00-5.60); RDW 16.6 % (11.9-15.9)
[2022-04-08 12:06] LABS: CALCIUM 8.6 mg/dL (8.5-10.1)
[2022-04-08 12:10] LABS: CREATININE 0.5 mg/dL (0.55-1.3)
[2022-04-08 12:12] LABS: BILIRUBIN,TOTAL 0.2 mg/dL (0.2-1); TOT PROT 6.7 g/dl (6.4-8.2)
[2022-04-08] MEDS: levETIRAcetam 500 MG/5 ML ORAL SOLUTION (UNIT-DOSE CUPS) GT SCH ×2 (14:47→21:11)
[2022-04-08] MEDS ORDERED: POTASSIUM CHLORIDE ORAL LIQUID 20 MEQ/15 ML GT ONE (15:00)
[2022-04-08] MEDS: FOLIC ACID 1 MG TABLET (FP) GT SCH (21:08)
[2022-04-08] MEDS: LORATADINE 10 MG TABLET GT SCH (21:08)
[2022-04-08] MEDS: FAMOTIDINE 20 MG TABLET PEG SCH (21:08)
[2022-04-08] MEDS: POLYETHYLENE GLYCOL (HEALTHYLAX) 3350 17 GM PACKET GT SCH (21:09)
[2022-04-08] MEDS: SENNOSIDES 8.8 MG/5 ML BULK BOTTLE PO SCH (21:10)
[2022-04-08] MEDS: PSYLLIUM 5.85 GM PACKET GT SCH (21:14)
[2022-04-09] MEDS: PIPERACILLIN/TAZOB 3.375 GM 3.375 GM in DEXTROSE 5%-WATER - 50 ML IVPB SCH ×3 (01:44→17:27)
[2022-04-09] MEDS: lamoTRIgine 100 MG TABLET GT SCH ×3 (05:22→20:41)
[2022-04-09] MEDS: levETIRAcetam 500 MG/5 ML ORAL SOLUTION BULK GT SCH (05:22)
[2022-04-09] MEDS: BUDESONIDE 0.5 MG/2 ML INH SUSP VIAL NEB SCH ×2 (07:55→20:01)
[2022-04-09 09:14] VITALS: RESP 18
[2022-04-09 09:34] LABS: HEMATOCRIT 34.3 % (35.4-49); HEMOGLOBIN 10.8 GM/dL (11.7-16.9); MCH 25.9 pg (25.7-33.7); MCHC 31.5 g/dl (32.0-35.9); MEAN CELL VOLUME 82.3 fl (80-96); MEAN PLT VOLUME 9.2 fl (7.5-11.1); PLATELET COUNT 173 10^3/uL (134-434); RBC 4.17 M/mm3 (4.00-5.60); RDW 16.3 % (11.9-15.9)
[2022-04-09 09:42] LABS: WHITE BLOOD COUNT 5.6 K/mm3 (4.0-10.0)
[2022-04-09] MEDS: MULTIVIT-MINERALS ORAL LIQUID GT SCH (09:54)
[2022-04-09] MEDS: ENOXAPARIN NA (PORCINE) 40 MG/0.4 ML DISP.SYRIN SQ SCH (09:54)
[2022-04-09] MEDS: METOPROLOL TARTRATE 50 MG TABLET (FP) PEG SCH ×2 (09:55→23:11)
[2022-04-09] MEDS: amLODIPine BESYLATE 5 MG TABLET (FP) GT SCH (09:55)
[2022-04-09] MEDS: FLUTICASONE PROP 0.05% 16 GM NASAL SPRAY NS SCH (09:55)
[2022-04-09] MEDS: cloBAZam 10 MG TABLET PO SCH ×2 (09:56→22:47)
[2022-04-09] MEDS: diazePAM 2 MG TABLET GT SCH ×2 (09:57→22:47)
[2022-04-09] MEDS: MAGNESIUM HYDROX 2400MG/30ML ORAL SUSPENSION 30 ML CUP GT SCH ×2 (09:57→22:46)
[2022-04-09 10:13] LABS: ALBUMIN 2.9 g/dl (3.4-5.0); BLOOD UREA NITROGEN 8.9 mg/dL (7-18)
[2022-04-09 10:15] LABS: BILIRUBIN,TOTAL 0.1 mg/dL (0.2-1); TOT PROT 6.4 g/dl (6.4-8.2)
[2022-04-09 10:16] LABS: CALCIUM 8.6 mg/dL (8.5-10.1); CREATININE 0.4 mg/dL (0.55-1.3)
[2022-04-09] MEDS: levETIRAcetam 500 MG/5 ML ORAL SOLUTION (UNIT-DOSE CUPS) GT SCH ×2 (13:51→22:47)
[2022-04-09] MEDS: SCOPOLAMINE HYDROBROMIDE 1 PATCH PATCH.TD72 TD SCH (14:44)
[2022-04-09] MEDS: LORATADINE 10 MG TABLET GT SCH (22:47)
[2022-04-09] MEDS: FAMOTIDINE 20 MG TABLET PEG SCH (22:47)
[2022-04-09] MEDS: FOLIC ACID 1 MG TABLET (FP) GT SCH (22:47)
[2022-04-09] MEDS: SENNOSIDES 8.8 MG/5 ML BULK BOTTLE PO SCH (22:47)
[2022-04-09] MEDS: PSYLLIUM 5.85 GM PACKET GT SCH (23:11)
[2022-04-09] MEDS: POLYETHYLENE GLYCOL (HEALTHYLAX) 3350 17 GM PACKET GT SCH (23:11)
[2022-04-10] MEDS: PIPERACILLIN/TAZOB 3.375 GM 3.375 GM in DEXTROSE 5%-WATER - 50 ML IVPB SCH ×3 (01:52→17:01)
[2022-04-10] MEDS: lamoTRIgine 100 MG TABLET GT SCH ×3 (05:45→20:41)
[2022-04-10] MEDS: levETIRAcetam 500 MG/5 ML ORAL SOLUTION BULK GT SCH (06:42)
[2022-04-10 07:56] LABS: HEMATOCRIT 35.7 % (35.4-49); HEMOGLOBIN 11.6 GM/dL (11.7-16.9); MCH 26.3 pg (25.7-33.7); MCHC 32.5 g/dl (32.0-35.9); MEAN CELL VOLUME 80.9 fl (80-96); MEAN PLT VOLUME 8.6 fl (7.5-11.1); PLATELET COUNT 214 10^3/uL (134-434); RBC 4.41 M/mm3 (4.00-5.60); RDW 16.5 % (11.9-15.9); WHITE BLOOD COUNT 5.4 K/mm3 (4.0-10.0)
[2022-04-10 08:08] LABS: BLOOD UREA NITROGEN 7.1 mg/dL (7-18); CALCIUM 8.8 mg/dL (8.5-10.1)
[2022-04-10 08:12] LABS: CREATININE 0.5 mg/dL (0.55-1.3); TOT PROT 6.9 g/dl (6.4-8.2)
[2022-04-10 08:14] LABS: BILIRUBIN,TOTAL 0.2 mg/dL (0.2-1)
[2022-04-10] MEDS: BUDESONIDE 0.5 MG/2 ML INH SUSP VIAL NEB SCH ×2 (08:52→20:18)
[2022-04-10] MEDS: METOPROLOL TARTRATE 50 MG TABLET (FP) PEG SCH ×2 (09:45→22:54)
[2022-04-10] MEDS: cloBAZam 10 MG TABLET PO SCH (09:45)
[2022-04-10] MEDS: MAGNESIUM HYDROX 2400MG/30ML ORAL SUSPENSION 30 ML CUP GT SCH ×2 (09:45→22:54)
[2022-04-10] MEDS: amLODIPine BESYLATE 5 MG TABLET (FP) GT SCH (09:45)
[2022-04-10] MEDS: diazePAM 2 MG TABLET GT SCH (09:45)
[2022-04-10] MEDS: MULTIVIT-MINERALS ORAL LIQUID GT SCH (09:46)
[2022-04-10] MEDS: FLUTICASONE PROP 0.05% 16 GM NASAL SPRAY NS SCH (09:47)
[2022-04-10] MEDS: ZINC OXIDE 20% TOPICAL OINTMENT 30 GM TUBE TP PRN (09:47)
[2022-04-10] MEDS: levETIRAcetam 500 MG/5 ML ORAL SOLUTION (UNIT-DOSE CUPS) GT SCH ×2 (13:01→22:54)
[2022-04-10] MEDS ORDERED: POTASSIUM CHLORIDE ORAL LIQUID 20 MEQ/15 ML PO ONE (17:57)
[2022-04-10] MEDS: FAMOTIDINE 20 MG TABLET PEG SCH (22:54)
[2022-04-10] MEDS: POLYETHYLENE GLYCOL (HEALTHYLAX) 3350 17 GM PACKET GT SCH (22:54)
[2022-04-10] MEDS: FOLIC ACID 1 MG TABLET (FP) GT SCH (22:54)
[2022-04-10] MEDS: LORATADINE 10 MG TABLET GT SCH (22:54)
[2022-04-10] MEDS: SENNOSIDES 8.8 MG/5 ML BULK BOTTLE PO SCH (22:55)
[2022-04-10] MEDS: PSYLLIUM 5.85 GM PACKET GT SCH (22:55)
[2022-04-11] MEDS: PIPERACILLIN/TAZOB 3.375 GM 3.375 GM in DEXTROSE 5%-WATER - 50 ML IVPB SCH ×3 (01:13→17:58)
[2022-04-11] MEDS: lamoTRIgine 100 MG TABLET GT SCH ×3 (05:46→23:05)
[2022-04-11] MEDS: levETIRAcetam 500 MG/5 ML ORAL SOLUTION BULK GT SCH (05:46)
[2022-04-11] MEDS: BUDESONIDE 0.5 MG/2 ML INH SUSP VIAL NEB SCH ×2 (08:10→20:14)
[2022-04-11 10:49] LABS: ALBUMIN 3.3 g/dl (3.4-5.0); BILIRUBIN,TOTAL 0.3 mg/dL (0.2-1); BLOOD UREA NITROGEN 7.8 mg/dL (7-18); CREATININE 0.5 mg/dL (0.55-1.3); TOT PROT 7.5 g/dl (6.4-8.2)
[2022-04-11 11:07] LABS: HEMATOCRIT 37.2 % (35.4-49); HEMOGLOBIN 11.9 GM/dL (11.7-16.9); MCH 26.1 pg (25.7-33.7); MEAN CELL VOLUME 81.8 fl (80-96); MEAN PLT VOLUME 8.4 fl (7.5-11.1); PLATELET COUNT 204 10^3/uL (134-434); RBC 4.54 M/mm3 (4.00-5.60); RDW 16.5 % (11.9-15.9); WHITE BLOOD COUNT 7.8 K/mm3 (4.0-10.0)
[2022-04-11] MEDS: MULTIVIT-MINERALS ORAL LIQUID GT SCH (12:00)
[2022-04-11] MEDS: METOPROLOL TARTRATE 50 MG TABLET (FP) PEG SCH ×2 (12:01→22:09)
[2022-04-11] MEDS: ENOXAPARIN NA (PORCINE) 40 MG/0.4 ML DISP.SYRIN SQ SCH (12:02)
[2022-04-11] MEDS: MAGNESIUM HYDROX 2400MG/30ML ORAL SUSPENSION 30 ML CUP GT SCH ×2 (12:02→22:09)
[2022-04-11] MEDS: amLODIPine BESYLATE 5 MG TABLET (FP) GT SCH (12:03)
[2022-04-11] MEDS: FLUTICASONE PROP 0.05% 16 GM NASAL SPRAY NS SCH (12:04)
[2022-04-11] MEDS: levETIRAcetam 500 MG/5 ML ORAL SOLUTION (UNIT-DOSE CUPS) GT SCH ×2 (15:33→22:09)
[2022-04-11] MEDS: FAMOTIDINE 20 MG TABLET PEG SCH (22:09)
[2022-04-11] MEDS: LORATADINE 10 MG TABLET GT SCH (22:09)
[2022-04-11] MEDS: FOLIC ACID 1 MG TABLET (FP) GT SCH (22:09)
[2022-04-11] MEDS: POLYETHYLENE GLYCOL (HEALTHYLAX) 3350 17 GM PACKET GT SCH (22:09)
[2022-04-11] MEDS: SENNOSIDES 8.8 MG/5 ML BULK BOTTLE PO SCH (22:10)
[2022-04-11] MEDS: PSYLLIUM 5.85 GM PACKET GT SCH (23:05)
[2022-04-12] MEDS: PIPERACILLIN/TAZOB 3.375 GM 3.375 GM in DEXTROSE 5%-WATER - 50 ML IVPB SCH ×2 (01:45→10:28)
[2022-04-12] MEDS: levETIRAcetam 500 MG/5 ML ORAL SOLUTION BULK GT SCH (06:01)
[2022-04-12] MEDS: lamoTRIgine 100 MG TABLET GT SCH ×2 (06:02→15:22)
[2022-04-12] MEDS: BUDESONIDE 0.5 MG/2 ML INH SUSP VIAL NEB SCH (08:24)
[2022-04-12] MEDS: amLODIPine BESYLATE 5 MG TABLET (FP) GT SCH (10:28)
[2022-04-12] MEDS: MAGNESIUM HYDROX 2400MG/30ML ORAL SUSPENSION 30 ML CUP GT SCH (10:28)
[2022-04-12] MEDS: METOPROLOL TARTRATE 50 MG TABLET (FP) PEG SCH (10:28)
[2022-04-12] MEDS: ENOXAPARIN NA (PORCINE) 40 MG/0.4 ML DISP.SYRIN SQ SCH (10:28)
[2022-04-12] MEDS: FLUTICASONE PROP 0.05% 16 GM NASAL SPRAY NS SCH (10:29)
[2022-04-12] MEDS: MULTIVIT-MINERALS ORAL LIQUID GT SCH (10:29)
[2022-04-12 12:38] LABS: HEMOGLOBIN 12.3 GM/dL (11.7-16.9); MCH 25.7 pg (25.7-33.7); MCHC 31.5 g/dl (32.0-35.9); MEAN CELL VOLUME 81.5 fl (80-96); MEAN PLT VOLUME 8.5 fl (7.5-11.1); PLATELET COUNT 222 10^3/uL (134-434); RBC 4.78 M/mm3 (4.00-5.60); RDW 16.3 % (11.9-15.9); WHITE BLOOD COUNT 8.3 K/mm3 (4.0-10.0)
[2022-04-12 12:59] LABS: BLOOD UREA NITROGEN 7.5 mg/dL (7-18); CALCIUM 8.5 mg/dL (8.5-10.1)
[2022-04-12 13:03] LABS: CREATININE 0.5 mg/dL (0.55-1.3)
[2022-04-12 13:05] LABS: BILIRUBIN,TOTAL 0.2 mg/dL (0.2-1); TOT PROT 6.8 g/dl (6.4-8.2)
[2022-04-12] MEDS: levETIRAcetam 500 MG/5 ML ORAL SOLUTION (UNIT-DOSE CUPS) GT SCH (13:39)
[2022-04-12 14:36] VITALS: PULSE 77; TEMP 98.5
[2022-04-12] MEDS: SCOPOLAMINE HYDROBROMIDE 1 PATCH PATCH.TD72 TD SCH (15:22)
[2022-04-12 17:53] VITALS: BP 148/90
== END 2022-04-12 18:29 | DRG 466 ==
LOC: JER 15:58 → JERBED 18:22 → J5S 04-03 04:03 → J6S 04-05 18:24
PROVIDERS: ADMIT Internal Medicine; ATTEND Internal Medicine
PROC: 0T2BX0Z Change Drainage Device in Bladder, External Approach (ICD-10-PCS; principal; 2022-04-06)
DX: T83.511A Infection and inflammatory reaction due to indwelling urethral catheter, initial encounter (principal); R53.2 Functional quadriplegia; T83.098A Other mechanical complication of other urinary catheter, initial encounter; G40.909 Epilepsy, unspecified, not intractable, without status epilepticus; G80.8 Other cerebral palsy; I10 Essential (primary) hypertension; Q03.8 Other congenital hydrocephalus; N39.0 Urinary tract infection, site not specified; R33.9 Retention of urine, unspecified; N31.9 Neuromuscular dysfunction of bladder, unspecified; R74.8 Abnormal levels of other serum enzymes; Y84.6 Urinary catheterization as the cause of abnormal reaction of the patient, or of later complication, without mention of misadventure at the time of the procedure; R09.02 Hypoxemia; K59.00 Constipation, unspecified; Z93.1 Gastrostomy status
CPT/HCPCS: 36415; 71045-TC-FY; 80048; 80053; 81003; 83735; 84100; 85025; 85027; 87086; 87186; 93005; 93010; 94640; 99285-25; C9803-CS; U0003; U0005

== ENCOUNTER 2022-08-18 14:23 | Emergency (ER) | payer OTHER ==
[2022-08-18 14:52] VITALS: RESP 20; TEMP 97.8; BMI 28.5
[2022-08-18 17:54] VITALS: BP 151/95; PULSE 63
== END 2022-08-18 17:54 | disposition home or self-care (01) ==
LOC: JER 14:23
DX: T83.010A Breakdown (mechanical) of cystostomy catheter, initial encounter (principal)
CPT/HCPCS: 99281-25

== ENCOUNTER 2022-09-05 11:11 | Emergency (ER) | payer OTHER ==
[2022-09-05 11:40] VITALS: BP 138/90; PULSE 61; RESP 19; TEMP 98.3; BMI 28.5
== END 2022-09-05 13:16 ==
LOC: JER 11:11
DX: T83.010A Breakdown (mechanical) of cystostomy catheter, initial encounter (principal)
CPT/HCPCS: 99283-25

== ENCOUNTER 2022-09-27 15:09 | Emergency (ER) | payer OTHER ==
[2022-09-27 15:20] VITALS: BP 145/94; PULSE 69; RESP 18; TEMP 97.6; BMI 22.9
[2022-09-27 18:53] LABS: EPI CELLS 7 /uL (0-25.1); HYALINE CASTS 5 /uL (0-3.1); PH,URINE >= 9.0 (5.0-8.0); URINE APPEARANCE TURBID; URINE BILIRUBIN NEGATIVE (NEGATIVE); URINE COLOR YELLOW; URINE GLUCOSE (UA) NEGATIVE (NEGATIVE); URINE KETONE NEGATIVE (NEGATIVE); URINE LEUK ESTERASE 3+ (NEGATIVE); URINE NITRITE NEGATIVE (NEGATIVE); URINE PROTEIN 2+ (NEGATIVE); URINE RBC 1119 /uL (0-23.9); URINE UROBILINOGEN 0.2 mg/dL (0.2-1.0); URINE WBC 2998 /uL (0-25.8)
[2022-09-27 18:57] LABS: URINE BACTERIA 385.8 /uL (0-1359)
[2022-09-27 20:05] LABS: CALCIUM 9.4 mg/dL (8.5-10.1)
[2022-09-27 20:09] LABS: CREATININE 0.5 mg/dL (0.55-1.3)
== END 2022-09-27 20:20 | disposition home or self-care (01) ==
LOC: JER 15:09
PROC: 0T7D8ZZ Dilation of Urethra, Via Natural or Artificial Opening Endoscopic (ICD-10-PCS; principal; 2022-09-27)
DX: T83.010A Breakdown (mechanical) of cystostomy catheter, initial encounter (principal); Y84.6 Urinary catheterization as the cause of abnormal reaction of the patient, or of later complication, without mention of misadventure at the time of the procedure
CPT/HCPCS: 36415; 80048; 81003; 87086; 87186; 99283-25

== ENCOUNTER 2022-10-23 14:57 | Inpatient (IN) | payer OTHER ==
[2022-10-23 15:11] VITALS: BMI 29.5
[2022-10-23] MEDS ORDERED: CEFEPIME HCL/D5W 1 GM/50 ML BAG IVPB ONE (15:40)
[2022-10-23] MEDS ORDERED: CEFEPIME 1 GM/100 ML BAG IVPB ONE (15:53)
[2022-10-23] MEDS ORDERED: SODIUM CHLORIDE 0.9% 500 ML INFUS.BAG IV ONE (16:48)
[2022-10-23 17:05] LABS: BASO % 0.3 % (0-2.0); EOS % 5.4 % (0-4.5); HEMATOCRIT 44.2 % (35.4-49); HEMOGLOBIN 14.9 GM/dL (11.7-16.9); LYMPH % 24.6 % (8-40); MCH 27.7 pg (25.7-33.7); MCHC 33.8 g/dl (32.0-35.9); MEAN CELL VOLUME 81.8 fl (80-96); MEAN PLT VOLUME 9.9 fl (7.5-11.1); MONO % 10.4 % (3.8-10.2); NEUT % 59.3 % (42.8-82.8); PLATELET COUNT 221 10^3/uL (134-434); RDW 15.3 % (11.9-15.9); WHITE BLOOD COUNT 5.7 K/mm3 (4.0-10.0)
[2022-10-23] MEDS ORDERED: ZINC OXIDE 20% TOPICAL OINTMENT 30 GM TUBE TP PRN (17:33)
[2022-10-23] MEDS ORDERED: ALBUTEROL SO4 2.5/IPRATROPIUM 0.5 INH SOL 3 ML VIAL.NEB. NEB PRN (17:33)
[2022-10-23] MEDS ORDERED: LORazepam 2 MG/ML SDV VIAL IVPUSH PRN (17:33)
[2022-10-23] MEDS ORDERED: BISACODYL 10 MG SUPP.RECT RC PRN (17:33)
[2022-10-23 17:34] LABS: CALCIUM 9.6 mg/dL (8.5-10.1)
[2022-10-23 17:35] LABS: ALBUMIN 3.7 g/dl (3.4-5.0); BLOOD UREA NITROGEN 10.4 mg/dL (7-18)
[2022-10-23] MEDS ORDERED: DEXTROSE 50%-WATER - 25 GM/50 ML VIAL IVPUSH ONE (17:37)
[2022-10-23 17:38] LABS: CREATININE 0.6 mg/dL (0.55-1.3)
[2022-10-23] MEDS ORDERED: DEXTROSE 50%-WATER 25 GM/50 ML DISP.SYRIN ONE (17:39)
[2022-10-23 17:40] LABS: BILIRUBIN,TOTAL 0.4 mg/dL (0.2-1); TOT PROT 8.6 g/dl (6.4-8.2)
[2022-10-23 18:19] LABS: EPI CELLS 3 /uL (0-25.1); HYALINE CASTS 11 /uL (0-3.1); PH,URINE 8.5 (5.0-8.0); URINE APPEARANCE CLEAR; URINE BACTERIA 1281 /uL (0-1359); URINE BILIRUBIN NEGATIVE (NEGATIVE); URINE COLOR YELLOW; URINE GLUCOSE (UA) NEGATIVE (NEGATIVE); URINE KETONE NEGATIVE (NEGATIVE); URINE LEUK ESTERASE 2+ (NEGATIVE); URINE NITRITE NEGATIVE (NEGATIVE); URINE PROTEIN 2+ (NEGATIVE); URINE RBC 236 /uL (0-23.9); URINE UROBILINOGEN 0.2 mg/dL (0.2-1.0); URINE WBC 155 /uL (0-25.8)
[2022-10-23] MEDS: SCOPOLAMINE HYDROBROMIDE 1 PATCH PATCH.TD72 TD SCH (18:34)
[2022-10-23] MEDS ORDERED: LABETALOL HCL 5 MG/1 ML (100MG/20 ML VIAL) IVPUSH ONE (21:05)
[2022-10-23] MEDS ORDERED: levETIRAcetam 500 MG/5 ML INJECTION VIAL IVPB ONE (22:00)
[2022-10-23] MEDS ORDERED: METHYLCELLULOSE 500 MG GT SCH (22:00)
[2022-10-23] MEDS ORDERED: BUDESONIDE 0.5 MG/2 ML INH SUSP VIAL NEB SCH (22:00)
[2022-10-23] MEDS ORDERED: levETIRAcetam 250 MG TABLET PO SCH (22:00)
[2022-10-23] MEDS: METOPROLOL TARTRATE 50 MG TABLET (FP) PEG SCH (23:22)
[2022-10-23] MEDS: POLYETHYLENE GLYCOL (HEALTHYLAX) 3350 17 GM PACKET PO SCH (23:23)
[2022-10-23] MEDS: PSYLLIUM 5.85 GM PACKET GT SCH (23:24)
[2022-10-23] MEDS: lamoTRIgine 100 MG TABLET GT SCH (23:24)
[2022-10-23] MEDS: levETIRAcetam 500 MG TABLET (FP) PO SCH (23:24)
[2022-10-23] MEDS: MAGNESIUM HYDROX 2400MG/30ML ORAL SUSPENSION 30 ML CUP GT SCH (23:24)
[2022-10-23] MEDS: FOLIC ACID 1 MG TABLET (FP) GT SCH (23:24)
[2022-10-23] MEDS: diazePAM 2 MG TABLET GT SCH (23:25)
[2022-10-23] MEDS: SENNOSIDES 8.6MG TABLET (FP) PO SCH (23:25)
[2022-10-23] MEDS: cloBAZam 10 MG TABLET PO SCH (23:25)
[2022-10-23] MEDS: FAMOTIDINE 20 MG TABLET PO SCH (23:25)
[2022-10-23] MEDS: CEFEPIME 1 GM in DEXTROSE 5%-WATER 100 ML IVPB SCH (23:26)
[2022-10-23] MEDS: HEPARIN NA (PORCINE) 5,000 UNITS/ML 1ML VIAL SQ SCH (23:26)
[2022-10-23] MEDS: LORATADINE 10 MG TABLET GT SCH (23:26)
[2022-10-24] MEDS: lamoTRIgine 100 MG TABLET GT SCH ×4 (00:03→21:38)
[2022-10-24] MEDS: LORATADINE 10 MG TABLET GT SCH ×2 (01:20→10:44)
[2022-10-24] MEDS: PSYLLIUM 5.85 GM PACKET GT SCH ×2 (01:21→21:38)
[2022-10-24] MEDS: METOPROLOL TARTRATE 50 MG TABLET (FP) PEG SCH (01:21)
[2022-10-24] MEDS: FOLIC ACID 1 MG TABLET (FP) GT SCH ×2 (01:21→21:38)
[2022-10-24] MEDS: POLYETHYLENE GLYCOL (HEALTHYLAX) 3350 17 GM PACKET PO SCH ×2 (01:21→21:37)
[2022-10-24] MEDS: cloBAZam 10 MG TABLET PO SCH ×2 (01:21→14:31)
[2022-10-24] MEDS: MAGNESIUM HYDROX 2400MG/30ML ORAL SUSPENSION 30 ML CUP GT SCH ×3 (01:21→21:38)
[2022-10-24] MEDS: levETIRAcetam 500 MG TABLET (FP) PO SCH (01:21)
[2022-10-24] MEDS: SENNOSIDES 8.6MG TABLET (FP) PO SCH (01:22)
[2022-10-24] MEDS: FAMOTIDINE 20 MG TABLET PO SCH (01:22)
[2022-10-24] MEDS: diazePAM 2 MG TABLET GT SCH (01:22)
[2022-10-24] MEDS: levETIRAcetam 500 MG/5 ML INJECTION VIAL IVPB SCH ×3 (01:30→21:44)
[2022-10-24] MEDS: diazePAM CARPU-JECT 10 MG/2 ML DISP.SYRIN IVPUSH SCH ×2 (02:23→13:54)
[2022-10-24] MEDS ORDERED: METOPROLOL TARTRATE 5 MG/5 ML VIAL IVPUSH SCH (03:15)
[2022-10-24] MEDS: METOPROLOL TARTRATE 5 MG/5 ML VIAL IVPB SCH ×2 (04:05→14:31)
[2022-10-24] MEDS ORDERED: hydrALAZINE HCL 20 MG/ML VIAL IVPUSH ONE (06:16)
[2022-10-24] MEDS: BUDESONIDE 0.5 MG/2 ML INH SUSP VIAL NEB SCH ×2 (08:00→20:13)
[2022-10-24 08:20] LABS: CALCIUM 9.3 mg/dL (8.5-10.1)
[2022-10-24 08:21] LABS: BLOOD UREA NITROGEN 7.6 mg/dL (7-18)
[2022-10-24 08:24] LABS: CREATININE 0.5 mg/dL (0.55-1.3)
[2022-10-24 08:42] LABS: BASO % 0.2 % (0-2.0); EOS % 1.7 % (0-4.5); HEMOGLOBIN 15.5 GM/dL (11.7-16.9); LYMPH % 11.7 % (8-40); MCHC 34.4 g/dl (32.0-35.9); MEAN CELL VOLUME 81.5 fl (80-96); MEAN PLT VOLUME 10.1 fl (7.5-11.1); MONO % 8.9 % (3.8-10.2); NEUT % 77.5 % (42.8-82.8); PLATELET COUNT 220 10^3/uL (134-434); RBC 5.52 M/mm3 (4.00-5.60); RDW 15.5 % (11.9-15.9); WHITE BLOOD COUNT 5.8 K/mm3 (4.0-10.0)
[2022-10-24] MEDS ORDERED: amLODIPine BESYLATE 5 MG TABLET (FP) GT SCH (10:00)
[2022-10-24] MEDS ORDERED: MULTIVITAMINS (DAILY MVI) TABLET (FP) PO SCH (10:00)
[2022-10-24] MEDS ORDERED: cloBAZam 10 MG TABLET PO PRN (10:35)
[2022-10-24] MEDS: HEPARIN NA (PORCINE) 5,000 UNITS/ML 1ML VIAL SQ SCH ×2 (10:42→21:38)
[2022-10-24] MEDS: CEFEPIME 1 GM in DEXTROSE 5%-WATER 100 ML IVPB SCH ×4 (10:43→21:39)
[2022-10-24] MEDS ORDERED: levETIRAcetam 500 MG/5 ML INJECTION VIAL IVPB SCH ×2 (11:15)
[2022-10-24] MEDS ORDERED: SENNOSIDES 8.8 MG/5 ML SYRUP PO SCH (11:53)
[2022-10-24] MEDS ORDERED: levETIRAcetam 500 MG/5 ML INJECTION VIAL IVPB ONE (14:00)
[2022-10-24] MEDS: METOPROLOL TARTRATE 50 MG TABLET (FP) GT SCH ×2 (14:05→21:37)
[2022-10-24] MEDS: diazePAM 2 MG TABLET PO SCH ×2 (14:23→21:38)
[2022-10-24] MEDS: LOSARTAN POTASSIUM 50 MG TABLET GT SCH (14:23)
[2022-10-24] MEDS ORDERED: VANCOMYCIN 1,000 MG in DEXTROSE 5%-WATER - 250 ML IVPB ONE (16:01)
[2022-10-24] MEDS ORDERED: VANCOMYCIN/WATER FOR INJ (PEG) 1,000 MG/200 ML BAG IVPB ONE (18:30)
[2022-10-24] MEDS: SENNOSIDES 8.8 MG/5 ML SYRUP GT SCH (21:38)
[2022-10-24] MEDS: FAMOTIDINE 40 MG/5 ML ORAL SUSPENSION GT SCH (21:38)
[2022-10-24] MEDS: cloBAZam 10 MG TABLET GT SCH (21:44)
[2022-10-25] MEDS: levETIRAcetam 500 MG/5 ML INJECTION VIAL IVPB SCH ×3 (05:09→22:55)
[2022-10-25] MEDS: lamoTRIgine 100 MG TABLET GT SCH ×3 (05:09→22:54)
[2022-10-25] MEDS: BUDESONIDE 0.5 MG/2 ML INH SUSP VIAL NEB SCH ×2 (07:45→19:52)
[2022-10-25] MEDS: MULTIVIT-MINERALS ORAL LIQUID PO SCH (10:40)
[2022-10-25] MEDS: diazePAM 2 MG TABLET PO SCH ×2 (10:40→22:56)
[2022-10-25] MEDS: LOSARTAN POTASSIUM 50 MG TABLET GT SCH (10:40)
[2022-10-25] MEDS: amLODIPine BESYLATE 5 MG TABLET (FP) GT SCH (10:41)
[2022-10-25] MEDS: METOPROLOL TARTRATE 50 MG TABLET (FP) GT SCH ×2 (10:41→22:55)
[2022-10-25] MEDS: HEPARIN NA (PORCINE) 5,000 UNITS/ML 1ML VIAL SQ SCH ×2 (10:41→22:58)
[2022-10-25] MEDS: MAGNESIUM HYDROX 2400MG/30ML ORAL SUSPENSION 30 ML CUP GT SCH ×2 (10:41→22:56)
[2022-10-25] MEDS: LORATADINE 10 MG TABLET GT SCH (10:41)
[2022-10-25] MEDS: cloBAZam 10 MG TABLET GT SCH ×2 (10:42→22:58)
[2022-10-25] MEDS: CEFEPIME 1 GM in DEXTROSE 5%-WATER 100 ML IVPB SCH (10:42)
[2022-10-25 13:56] LABS: BASO % 0.3 % (0-2.0); EOS % 4.2 % (0-4.5); HEMATOCRIT 39.1 % (35.4-49); HEMOGLOBIN 13.2 GM/dL (11.7-16.9); LYMPH % 14.3 % (8-40); MCH 27.5 pg (25.7-33.7); MCHC 33.8 g/dl (32.0-35.9); MEAN CELL VOLUME 81.6 fl (80-96); MEAN PLT VOLUME 9.5 fl (7.5-11.1); MONO % 11.4 % (3.8-10.2); NEUT % 69.8 % (42.8-82.8); PLATELET COUNT 216 10^3/uL (134-434); RBC 4.79 M/mm3 (4.00-5.60); RDW 15.6 % (11.9-15.9); WHITE BLOOD COUNT 5.9 K/mm3 (4.0-10.0)
[2022-10-25 14:11] LABS: CALCIUM 8.6 mg/dL (8.5-10.1)
[2022-10-25 14:12] LABS: BLOOD UREA NITROGEN 11.3 mg/dL (7-18); MAGNESIUM 1.9 mg/dL (1.8-2.4)
[2022-10-25 14:14] LABS: PHOSPHOROUS 2.6 mg/dL (2.5-4.9)
[2022-10-25 14:15] LABS: CREATININE 0.5 mg/dL (0.55-1.3)
[2022-10-25 14:16] LABS: BILIRUBIN,TOTAL 0.2 mg/dL (0.2-1); TOT PROT 6.6 g/dl (6.4-8.2)
[2022-10-25 14:20] LABS: ALBUMIN 2.9 g/dl (3.4-5.0)
[2022-10-25] MEDS: PIPERACILLIN/TAZOB 3.375 GM 3.375 GM in DEXTROSE 5%-WATER - 50 ML IVPB SCH (17:46)
[2022-10-25] MEDS: FOLIC ACID 1 MG TABLET (FP) GT SCH (22:54)
[2022-10-25] MEDS: POLYETHYLENE GLYCOL (HEALTHYLAX) 3350 17 GM PACKET PO SCH (22:56)
[2022-10-25] MEDS: PSYLLIUM 5.85 GM PACKET GT SCH (22:56)
[2022-10-25] MEDS: FAMOTIDINE 40 MG/5 ML ORAL SUSPENSION GT SCH (22:56)
[2022-10-25] MEDS: SENNOSIDES 8.8 MG/5 ML SYRUP GT SCH (22:57)
[2022-10-26] MEDS: PIPERACILLIN/TAZOB 3.375 GM 3.375 GM in DEXTROSE 5%-WATER - 50 ML IVPB SCH ×3 (02:05→18:53)
[2022-10-26] MEDS: lamoTRIgine 100 MG TABLET GT SCH ×3 (06:45→22:25)
[2022-10-26] MEDS: levETIRAcetam 500 MG/5 ML INJECTION VIAL IVPB SCH ×3 (06:45→22:23)
[2022-10-26] MEDS: BUDESONIDE 0.5 MG/2 ML INH SUSP VIAL NEB SCH ×2 (08:25→19:32)
[2022-10-26] MEDS: LOSARTAN POTASSIUM 50 MG TABLET GT SCH (09:41)
[2022-10-26] MEDS: cloBAZam 10 MG TABLET GT SCH ×2 (09:41→22:43)
[2022-10-26] MEDS: LORATADINE 10 MG TABLET GT SCH (09:42)
[2022-10-26] MEDS: amLODIPine BESYLATE 5 MG TABLET (FP) GT SCH (09:42)
[2022-10-26] MEDS: MAGNESIUM HYDROX 2400MG/30ML ORAL SUSPENSION 30 ML CUP GT SCH ×2 (09:42→22:23)
[2022-10-26] MEDS: METOPROLOL TARTRATE 50 MG TABLET (FP) GT SCH ×2 (09:42→22:42)
[2022-10-26] MEDS: HEPARIN NA (PORCINE) 5,000 UNITS/ML 1ML VIAL SQ SCH ×2 (09:42→22:23)
[2022-10-26] MEDS: diazePAM 2 MG TABLET PO SCH ×2 (09:42→22:24)
[2022-10-26] MEDS: MULTIVIT-MINERALS ORAL LIQUID PO SCH (09:43)
[2022-10-26] MEDS ORDERED: BISACODYL 10 MG SUPP.RECT PR ONE (10:13)
[2022-10-26] MEDS: METOCLOPRAMIDE HCL INJECTION 10 MG/2 ML VIAL IVPUSH SCH ×3 (12:54→23:03)
[2022-10-26 13:57] LABS: CALCIUM 8.6 mg/dL (8.5-10.1)
[2022-10-26 13:58] LABS: ALBUMIN 2.9 g/dl (3.4-5.0); BLOOD UREA NITROGEN 11.9 mg/dL (7-18); MAGNESIUM 2.1 mg/dL (1.8-2.4)
[2022-10-26 14:01] LABS: CREATININE 0.5 mg/dL (0.55-1.3); PHOSPHOROUS 2.7 mg/dL (2.5-4.9)
[2022-10-26 14:03] LABS: TOT PROT 6.6 g/dl (6.4-8.2)
[2022-10-26 14:04] LABS: BILIRUBIN,TOTAL 0.4 mg/dL (0.2-1)
[2022-10-26] MEDS: POLYETHYLENE GLYCOL (HEALTHYLAX) 3350 17 GM PACKET PO SCH ×2 (15:44→22:24)
[2022-10-26] MEDS ORDERED: ALBUTEROL SO4 0.083% IH SOL 2.5 MG/3 ML VIAL.NEB. NEB PRN (15:51)
[2022-10-26] MEDS: SCOPOLAMINE HYDROBROMIDE 1 PATCH PATCH.TD72 TD SCH (18:53)
[2022-10-26] MEDS: FAMOTIDINE 40 MG/5 ML ORAL SUSPENSION GT SCH (22:24)
[2022-10-26] MEDS: PSYLLIUM 5.85 GM PACKET GT SCH (22:24)
[2022-10-26] MEDS: FOLIC ACID 1 MG TABLET (FP) GT SCH (22:25)
[2022-10-26] MEDS: SENNOSIDES 8.8 MG/5 ML SYRUP GT SCH (22:43)
[2022-10-27] MEDS: PIPERACILLIN/TAZOB 3.375 GM 3.375 GM in DEXTROSE 5%-WATER - 50 ML IVPB SCH ×3 (01:26→18:09)
[2022-10-27] MEDS: METOCLOPRAMIDE HCL INJECTION 10 MG/2 ML VIAL IVPUSH SCH ×4 (05:08→22:14)
[2022-10-27] MEDS: lamoTRIgine 100 MG TABLET GT SCH ×3 (05:39→22:12)
[2022-10-27] MEDS: POLYETHYLENE GLYCOL (HEALTHYLAX) 3350 17 GM PACKET PO SCH ×3 (05:39→22:13)
[2022-10-27] MEDS: levETIRAcetam 500 MG/5 ML INJECTION VIAL IVPB SCH (06:49)
[2022-10-27] MEDS: BUDESONIDE 0.5 MG/2 ML INH SUSP VIAL NEB SCH ×2 (08:08→19:42)
[2022-10-27 10:20] LABS: BASO % 0.3 % (0-2.0); EOS % 5.7 % (0-4.5); HEMATOCRIT 38.9 % (35.4-49); HEMOGLOBIN 13.1 GM/dL (11.7-16.9); MCH 27.6 pg (25.7-33.7); MCHC 33.6 g/dl (32.0-35.9); MEAN CELL VOLUME 82.2 fl (80-96); MEAN PLT VOLUME 9.7 fl (7.5-11.1); PLATELET COUNT 195 10^3/uL (134-434); RBC 4.73 M/mm3 (4.00-5.60); RDW 15.1 % (11.9-15.9); WHITE BLOOD COUNT 4.5 K/mm3 (4.0-10.0)
[2022-10-27 10:51] LABS: ALBUMIN 3.1 g/dl (3.4-5.0); BLOOD UREA NITROGEN 9.2 mg/dL (7-18); CALCIUM 8.9 mg/dL (8.5-10.1)
[2022-10-27 10:54] LABS: CREATININE 0.5 mg/dL (0.55-1.3); PHOSPHOROUS 2.2 mg/dL (2.5-4.9)
[2022-10-27 10:56] LABS: BILIRUBIN,TOTAL 0.7 mg/dL (0.2-1); TOT PROT 6.9 g/dl (6.4-8.2)
[2022-10-27] MEDS: HEPARIN NA (PORCINE) 5,000 UNITS/ML 1ML VIAL SQ SCH ×2 (12:09→22:13)
[2022-10-27] MEDS: MAGNESIUM HYDROX 2400MG/30ML ORAL SUSPENSION 30 ML CUP GT SCH ×2 (12:10→22:12)
[2022-10-27] MEDS: LORATADINE 10 MG TABLET GT SCH (12:10)
[2022-10-27] MEDS: cloBAZam 10 MG TABLET GT SCH ×2 (12:10→22:11)
[2022-10-27] MEDS: amLODIPine BESYLATE 5 MG TABLET (FP) GT SCH (12:10)
[2022-10-27] MEDS: METOPROLOL TARTRATE 50 MG TABLET (FP) GT SCH ×2 (12:11→22:11)
[2022-10-27] MEDS: LOSARTAN POTASSIUM 50 MG TABLET GT SCH (12:11)
[2022-10-27] MEDS: diazePAM 2 MG TABLET PO SCH ×2 (12:11→22:11)
[2022-10-27] MEDS: MULTIVIT-MINERALS ORAL LIQUID PO SCH (14:44)
[2022-10-27] MEDS: levETIRAcetam 500 MG/5 ML ORAL SOLUTION (UNIT-DOSE CUPS) GT SCH ×2 (18:09→22:12)
[2022-10-27] MEDS: FOLIC ACID 1 MG TABLET (FP) GT SCH (22:11)
[2022-10-27] MEDS: PSYLLIUM 5.85 GM PACKET GT SCH (22:12)
[2022-10-27] MEDS: FAMOTIDINE 40 MG/5 ML ORAL SUSPENSION GT SCH (22:13)
[2022-10-27] MEDS: SENNOSIDES 8.8 MG/5 ML SYRUP GT SCH (22:13)
[2022-10-28] MEDS: PIPERACILLIN/TAZOB 3.375 GM 3.375 GM in DEXTROSE 5%-WATER - 50 ML IVPB SCH ×2 (02:09→10:02)
[2022-10-28] MEDS: METOCLOPRAMIDE HCL INJECTION 10 MG/2 ML VIAL IVPUSH SCH ×3 (03:36→15:51)
[2022-10-28] MEDS: POLYETHYLENE GLYCOL (HEALTHYLAX) 3350 17 GM PACKET PO SCH (06:54)
[2022-10-28] MEDS: lamoTRIgine 100 MG TABLET GT SCH ×2 (06:54→13:10)
[2022-10-28] MEDS: levETIRAcetam 500 MG/5 ML ORAL SOLUTION (UNIT-DOSE CUPS) GT SCH ×2 (06:55→13:10)
[2022-10-28] MEDS: BUDESONIDE 0.5 MG/2 ML INH SUSP VIAL NEB SCH (07:30)
[2022-10-28 08:17] LABS: HEMATOCRIT 40.5 % (35.4-49); HEMOGLOBIN 13.8 GM/dL (11.7-16.9); MCH 28.1 pg (25.7-33.7); MCHC 34.1 g/dl (32.0-35.9); MEAN CELL VOLUME 82.4 fl (80-96); MEAN PLT VOLUME 8.4 fl (7.5-11.1); PLATELET COUNT 192 10^3/uL (134-434); RBC 4.92 M/mm3 (4.00-5.60); RDW 15.4 % (11.9-15.9)
[2022-10-28 08:31] LABS: WHITE BLOOD COUNT 8.3 K/mm3 (4.0-10.0)
[2022-10-28 08:35] LABS: ALBUMIN 3.5 g/dl (3.4-5.0); CALCIUM 9.5 mg/dL (8.5-10.1); MAGNESIUM 1.9 mg/dL (1.8-2.4)
[2022-10-28 08:36] LABS: BLOOD UREA NITROGEN 9.9 mg/dL (7-18)
[2022-10-28 08:38] LABS: CREATININE 0.5 mg/dL (0.55-1.3)
[2022-10-28 08:39] LABS: PHOSPHOROUS 2.9 mg/dL (2.5-4.9)
[2022-10-28 08:40] LABS: BILIRUBIN,TOTAL 0.6 mg/dL (0.2-1); TOT PROT 7.8 g/dl (6.4-8.2)
[2022-10-28] MEDS ORDERED: POLYETHYLENE GLYCOL (HEALTHYLAX) 3350 17 GM PACKET GT SCH (08:40)
[2022-10-28] MEDS ORDERED: diazePAM 2 MG TABLET GT SCH (08:40)
[2022-10-28] MEDS ORDERED: MULTIVIT-MINERALS ORAL LIQUID GT SCH (08:40)
[2022-10-28] MEDS ORDERED: LACTULOSE 20 GM/30 ML UDC (FOR ORAL USE ONLY) GT ONE (08:42)
[2022-10-28 09:15] LABS: ANISOCYTOSIS 3+; MACROCYTOSIS 0; PLATELET ESTIMATE DECREASED
[2022-10-28] MEDS: MAGNESIUM HYDROX 2400MG/30ML ORAL SUSPENSION 30 ML CUP GT SCH (10:02)
[2022-10-28] MEDS: METOPROLOL TARTRATE 50 MG TABLET (FP) GT SCH (10:03)
[2022-10-28] MEDS: LORATADINE 10 MG TABLET GT SCH (10:04)
[2022-10-28] MEDS: cloBAZam 10 MG TABLET GT SCH (10:04)
[2022-10-28] MEDS: amLODIPine BESYLATE 5 MG TABLET (FP) GT SCH (10:04)
[2022-10-28] MEDS: LOSARTAN POTASSIUM 50 MG TABLET GT SCH (10:05)
[2022-10-28] MEDS: HEPARIN NA (PORCINE) 5,000 UNITS/ML 1ML VIAL SQ SCH (10:06)
[2022-10-28 13:33] VITALS: BP 149/78; PULSE 76; RESP 18; TEMP 98
[2022-10-28 13:38] LABS: EPI CELLS >36 /uL (0-25.1); HYALINE CASTS 2 /uL (0-3.1); URINE APPEARANCE CLEAR; URINE BACTERIA 29 /uL (0-1359); URINE BILIRUBIN NEGATIVE (NEGATIVE); URINE COLOR DK YELLOW; URINE GLUCOSE (UA) NEGATIVE (NEGATIVE); URINE KETONE 1+ (NEGATIVE); URINE LEUK ESTERASE 2+ (NEGATIVE); URINE NITRITE NEGATIVE (NEGATIVE); URINE PROTEIN 1+ (NEGATIVE); URINE RBC 102 /uL (0-23.9); URINE UROBILINOGEN 0.2 mg/dL (0.2-1.0); URINE WBC 149 /uL (0-25.8)
== END 2022-10-28 17:09 | DRG 720 ==
LOC: JER 14:57 → JERBED 17:19 → J8W 20:42
PROVIDERS: ADMIT Internal Medicine; ATTEND Nurse Practitioner Acute Care
DX: A41.89 Other specified sepsis (principal); I10 Essential (primary) hypertension; K59.00 Constipation, unspecified; Q67.5 Congenital deformity of spine; N39.0 Urinary tract infection, site not specified; G80.9 Cerebral palsy, unspecified; F73 Profound intellectual disabilities; R53.2 Functional quadriplegia; G91.1 Obstructive hydrocephalus; R31.9 Hematuria, unspecified; Q54.9 Hypospadias, unspecified; G40.909 Epilepsy, unspecified, not intractable, without status epilepticus; N31.9 Neuromuscular dysfunction of bladder, unspecified; Z93.59 Other cystostomy status; Z93.1 Gastrostomy status
CPT/HCPCS: 0241U-QW; 36415; 71045-TC-FY; 80048; 80053; 80177; 81003; 82962; 83735; 84100; 85025; 87040; 87086; 87186; 93005; 93010; 94640; 94761; 99285-25; J1644

== ENCOUNTER 2022-11-14 08:13 | Emergency (ER) | payer OTHER ==
[2022-11-14 08:37] VITALS: BMI 30.2
[2022-11-14] MEDS ORDERED: diazePAM CARPU-JECT 10 MG/2 ML DISP.SYRIN ONE (09:40)
[2022-11-14] MEDS ORDERED: diazePAM CARPU-JECT 10 MG/2 ML DISP.SYRIN IM ONE ×2 (09:40→09:44)
[2022-11-14 10:05] LABS: BASO % 0.3 % (0-2.0); EOS % 4.4 % (0-4.5); HEMATOCRIT 45.7 % (35.4-49); HEMOGLOBIN 15.5 GM/dL (11.7-16.9); LYMPH % 21.6 % (8-40); MCH 27.8 pg (25.7-33.7); MCHC 33.9 g/dl (32.0-35.9); MEAN CELL VOLUME 82.1 fl (80-96); MEAN PLT VOLUME 9.4 fl (7.5-11.1); MONO % 10.8 % (3.8-10.2); NEUT % 62.9 % (42.8-82.8); PLATELET COUNT 202 10^3/uL (134-434); RBC 5.56 M/mm3 (4.00-5.60); RDW 15.7 % (11.9-15.9); WHITE BLOOD COUNT 11.3 K/mm3 (4.0-10.0)
[2022-11-14 10:06] LABS: VENOUS BASE EXCESS 0.4 mmol/L (-2-2); VENOUS O2 SATURATION 89.9 % (70-80); VENOUS PCO2 50.8 mmHg (38-52); VENOUS PH 7.344 (7.310-7.410)
[2022-11-14 10:13] LABS: INR 1.12 (0.83-1.09)
[2022-11-14 10:16] LABS: ACTIVATED PTT 41.8 SECONDS (25.2-36.5)
[2022-11-14 10:41] LABS: ALBUMIN 3.9 g/dl (3.4-5.0); BLOOD UREA NITROGEN 10.7 mg/dL (7-18)
[2022-11-14 10:44] LABS: CREATININE 0.6 mg/dL (0.55-1.3)
[2022-11-14 10:45] LABS: BILIRUBIN,TOTAL 0.3 mg/dL (0.2-1); TOT PROT 8.8 g/dl (6.4-8.2)
[2022-11-14 10:58] LABS: LACTIC ACID 4.4 mmol/L (0.4-2.0)
[2022-11-14 11:54] LABS: EPI CELLS 12 /uL (0-25.1); HYALINE CASTS 7 /uL (0-3.1); URINE APPEARANCE CLOUDY; URINE BACTERIA 3743 /uL (0-1359); URINE BILIRUBIN NEGATIVE (NEGATIVE); URINE COLOR YELLOW; URINE GLUCOSE (UA) NEGATIVE (NEGATIVE); URINE KETONE NEGATIVE (NEGATIVE); URINE LEUK ESTERASE 2+ (NEGATIVE); URINE NITRITE NEGATIVE (NEGATIVE); URINE PROTEIN 2+ (NEGATIVE); URINE RBC 59 /uL (0-23.9); URINE UROBILINOGEN 0.2 mg/dL (0.2-1.0); URINE WBC 564 /uL (0-25.8)
[2022-11-14] MEDS ORDERED: CEFTRIAXONE 1,000 MG in DEXTROSE 5%-WATER - 50 ML IVPB ONE (12:20)
[2022-11-14] MEDS ORDERED: CEFTRIAXONE 1 GM/50 ML BAG ONE (12:23)
[2022-11-14] MEDS ORDERED: LORazepam 2 MG/ML SDV VIAL IVPUSH ONE (14:05)
[2022-11-14] MEDS ORDERED: levETIRAcetam 500 MG/5 ML INJECTION VIAL IVPB ONE ×2 (14:15→14:23)
[2022-11-14] MEDS ORDERED: METOCLOPRAMIDE HCL INJECTION 10 MG/2 ML VIAL ONE (14:18)
[2022-11-14 17:22] VITALS: BP 157/103; PULSE 98; RESP 17; TEMP 98.5
== END 2022-11-14 17:37 ==
LOC: JER 08:13
PROC: 3E03329 Introduction of Other Anti-infective into Peripheral Vein, Percutaneous Approach (ICD-10-PCS; principal; 2022-11-14)
PROC: 3E033GC Introduction of Other Therapeutic Substance into Peripheral Vein, Percutaneous Approach (ICD-10-PCS; 2022-11-14)
PROC: 3E023GC Introduction of Other Therapeutic Substance into Muscle, Percutaneous Approach (ICD-10-PCS; 2022-11-14)
DX: K59.00 Constipation, unspecified (principal); Z20.822 Contact with and (suspected) exposure to COVID-19
CPT/HCPCS: 0241U-QW; 36415; 71045-TC-FY; 74176-TC; 80053; 80177; 81003; 82550; 82553; 82803; 83605; 83690; 84484; 85025; 85610; 85730; 87040; 87086; 87186; 93005; 93010; 99285-25

== ENCOUNTER 2022-11-19 05:33 | Inpatient (IN) | payer OTHER ==
[2022-11-19 06:01] VITALS: BMI 29.7
[2022-11-19 07:43] LABS: BASO % 0.4 % (0-2.0); EOS % 2.9 % (0-4.5); HEMATOCRIT 47.1 % (35.4-49); HEMOGLOBIN 16.2 GM/dL (11.7-16.9); LYMPH % 16.1 % (8-40); MCH 28.2 pg (25.7-33.7); MCHC 34.5 g/dl (32.0-35.9); MEAN CELL VOLUME 81.8 fl (80-96); MEAN PLT VOLUME 9.6 fl (7.5-11.1); MONO % 12.4 % (3.8-10.2); NEUT % 68.2 % (42.8-82.8); PLATELET COUNT 237 10^3/uL (134-434); RBC 5.75 M/mm3 (4.00-5.60); WHITE BLOOD COUNT 8.5 K/mm3 (4.0-10.0)
[2022-11-19 07:47] LABS: POTASSIUM 3.3 mmol/L (3.5-5.1)
[2022-11-19 07:50] LABS: ALBUMIN 3.8 g/dl (3.4-5.0); BLOOD UREA NITROGEN 13.5 mg/dL (7-18); MAGNESIUM 1.8 mg/dL (1.8-2.4)
[2022-11-19 07:53] LABS: CREATININE 0.5 mg/dL (0.55-1.3)
[2022-11-19 07:54] LABS: TOT PROT 8.4 g/dl (6.4-8.2)
[2022-11-19 07:55] LABS: BILIRUBIN,TOTAL 0.3 mg/dL (0.2-1)
[2022-11-19 08:28] LABS: EPI CELLS 11 /uL (0-25.1); HYALINE CASTS 1 /uL (0-3.1); PH,URINE 6.5 (5.0-8.0); URINE APPEARANCE CLEAR; URINE BACTERIA >9,000 /uL (0-1359); URINE BILIRUBIN NEGATIVE (NEGATIVE); URINE COLOR YELLOW; URINE GLUCOSE (UA) NEGATIVE (NEGATIVE); URINE KETONE NEGATIVE (NEGATIVE); URINE LEUK ESTERASE 2+ (NEGATIVE); URINE NITRITE NEGATIVE (NEGATIVE); URINE PROTEIN 1+ (NEGATIVE); URINE RBC 359 /uL (0-23.9); URINE WBC 86 /uL (0-25.8)
[2022-11-19] MEDS ORDERED: levETIRAcetam 500 MG/5 ML INJECTION VIAL IVPB ONE (11:32)
[2022-11-19] MEDS: LACTATED RINGERS SOLUTION 1,000 ML IV SCH (12:00)
[2022-11-19] MEDS ORDERED: cloBAZam 10 MG TABLET GT SCH (13:45)
[2022-11-19] MEDS ORDERED: diazePAM 2 MG TABLET ONE (14:56)
[2022-11-19] MEDS ORDERED: lamoTRIgine 100 MG TABLET ONE (14:57)
[2022-11-19] MEDS ORDERED: POLYETHYLENE GLYCOL (HEALTHYLAX) 3350 17 GM PACKET ONE (15:02)
[2022-11-19] MEDS: lamoTRIgine 100 MG TABLET GT SCH ×2 (15:09→22:43)
[2022-11-19] MEDS: diazePAM 2 MG TABLET GT SCH ×2 (15:09→22:43)
[2022-11-19] MEDS: POLYETHYLENE GLYCOL (HEALTHYLAX) 3350 17 GM PACKET GT SCH ×2 (15:09→22:44)
[2022-11-19] MEDS: levETIRAcetam 500 MG/5 ML ORAL SOLUTION (UNIT-DOSE CUPS) GT SCH ×2 (17:40→22:43)
[2022-11-19] MEDS ORDERED: cloBAZam 10 MG TABLET ONE (17:55)
[2022-11-19] MEDS: cloBAZam 10 MG TABLET GT SCH ×2 (17:57→22:43)
[2022-11-19] MEDS ORDERED: amLODIPine BESYLATE 10 MG TABLET (FP) ONE (18:37)
[2022-11-19] MEDS ORDERED: LOSARTAN POTASSIUM 50 MG TABLET ONE (18:37)
[2022-11-19] MEDS: amLODIPine BESYLATE 10 MG TABLET (FP) GT SCH (18:48)
[2022-11-19] MEDS: LOSARTAN POTASSIUM 50 MG TABLET GT SCH (18:48)
[2022-11-19] MEDS ORDERED: levETIRAcetam 500 MG/5 ML INJECTION VIAL IVPB SCH (22:00)
[2022-11-19] MEDS: METOPROLOL TARTRATE 25 MG TABLET (FP) PEG SCH (22:44)
[2022-11-20] MEDS: KCL 10 MEQ IVPB 10 MEQ/100 ML INFUS.BAG IVPB SCH ×3 (05:58→19:22)
[2022-11-20] MEDS ORDERED: levETIRAcetam 500 MG/5 ML INJECTION VIAL IVPB SCH (06:00)
[2022-11-20] MEDS: POLYETHYLENE GLYCOL (HEALTHYLAX) 3350 17 GM PACKET GT SCH (06:41)
[2022-11-20] MEDS: HEPARIN NA (PORCINE) 5,000 UNITS/ML 1ML VIAL SQ SCH ×3 (06:41→22:35)
[2022-11-20] MEDS: lamoTRIgine 100 MG TABLET GT SCH ×3 (06:41→22:35)
[2022-11-20] MEDS: levETIRAcetam 500 MG/5 ML ORAL SOLUTION (UNIT-DOSE CUPS) GT SCH ×3 (06:45→22:34)
[2022-11-20] MEDS: BUDESONIDE 0.5 MG/2 ML INH SUSP VIAL NEB SCH ×2 (07:23→19:26)
[2022-11-20] MEDS: METOPROLOL TARTRATE 25 MG TABLET (FP) PEG SCH ×2 (11:14→22:35)
[2022-11-20] MEDS: LOSARTAN POTASSIUM 50 MG TABLET GT SCH (11:14)
[2022-11-20] MEDS: POLYETHYLENE GLYCOL (HEALTHYLAX) 3350 17 GM PACKET PO SCH ×2 (11:15→22:35)
[2022-11-20] MEDS: diazePAM 2 MG TABLET GT SCH ×2 (11:15→22:35)
[2022-11-20] MEDS: cloBAZam 10 MG TABLET GT SCH ×2 (11:15→22:35)
[2022-11-20] MEDS: amLODIPine BESYLATE 10 MG TABLET (FP) GT SCH (11:15)
[2022-11-20] MEDS: BISACODYL 5 MG TABLET.DR (FP) PO SCH (11:18)
[2022-11-20 12:35] LABS: BASO % 0.2 % (0-2.0); EOS % 4.5 % (0-4.5); HEMATOCRIT 43.4 % (35.4-49); HEMOGLOBIN 14.3 GM/dL (11.7-16.9); LYMPH % 29.2 % (8-40); MCH 27.1 pg (25.7-33.7); MCHC 32.9 g/dl (32.0-35.9); MEAN CELL VOLUME 82.5 fl (80-96); MEAN PLT VOLUME 8.2 fl (7.5-11.1); NEUT % 55.1 % (42.8-82.8); PLATELET COUNT 199 10^3/uL (134-434); RBC 5.26 M/mm3 (4.00-5.60); RDW 15.7 % (11.9-15.9); WHITE BLOOD COUNT 5.5 K/mm3 (4.0-10.0)
[2022-11-20 12:52] LABS: CHLORIDE 110 mmol/L (98-107); SODIUM 146 mmol/L (136-145)
[2022-11-20 12:53] LABS: CALCIUM 9.2 mg/dL (8.5-10.1)
[2022-11-20 12:54] LABS: ALBUMIN 3.5 g/dl (3.4-5.0); BLOOD UREA NITROGEN 13.5 mg/dL (7-18); CO2 30 mmol/L (21-32); GLUCOSE,RANDOM 63 mg/dL (74-106); MAGNESIUM 1.6 mg/dL (1.8-2.4)
[2022-11-20 12:57] LABS: CREATININE 0.5 mg/dL (0.55-1.3); SGOT/AST 15 U/L (15-37); SGPT/ALT 35 U/L (13-61)
[2022-11-20 12:59] LABS: BILIRUBIN,TOTAL 0.4 mg/dL (0.2-1); TOT PROT 7.7 g/dl (6.4-8.2)
[2022-11-20 13:01] LABS: ALK PHOS 131 U/L (45-117); ANION GAP 6 MMOL/L (8-16); POTASSIUM 2.9 mmol/L (3.5-5.1)
[2022-11-20] MEDS: FLUTICASONE PROP 0.05% 16 GM NASAL SPRAY NS SCH (15:57)
[2022-11-20] MEDS: LACTATED RINGERS SOLUTION 1,000 ML IV SCH (19:21)
[2022-11-21] MEDS: levETIRAcetam 500 MG/5 ML ORAL SOLUTION (UNIT-DOSE CUPS) GT SCH ×3 (05:51→23:31)
[2022-11-21] MEDS: HEPARIN NA (PORCINE) 5,000 UNITS/ML 1ML VIAL SQ SCH ×3 (05:51→23:24)
[2022-11-21] MEDS: lamoTRIgine 100 MG TABLET GT SCH ×3 (05:52→23:28)
[2022-11-21] MEDS: BUDESONIDE 0.5 MG/2 ML INH SUSP VIAL NEB SCH ×2 (07:29→19:26)
[2022-11-21] MEDS ORDERED: POTASSIUM CHLORIDE ORAL LIQUID 20 MEQ/15 ML PO ONE (09:10)
[2022-11-21] MEDS: POLYETHYLENE GLYCOL (HEALTHYLAX) 3350 17 GM PACKET PO SCH ×2 (09:49→23:23)
[2022-11-21] MEDS: diazePAM 2 MG TABLET GT SCH ×2 (09:50→23:28)
[2022-11-21] MEDS: METOPROLOL TARTRATE 25 MG TABLET (FP) PEG SCH ×2 (09:50→23:28)
[2022-11-21] MEDS: LOSARTAN POTASSIUM 50 MG TABLET GT SCH (09:50)
[2022-11-21] MEDS: amLODIPine BESYLATE 10 MG TABLET (FP) GT SCH (09:50)
[2022-11-21] MEDS: BISACODYL 5 MG TABLET.DR (FP) PO SCH (09:50)
[2022-11-21] MEDS: cloBAZam 10 MG TABLET GT SCH ×2 (09:51→23:28)
[2022-11-21] MEDS: FLUTICASONE PROP 0.05% 16 GM NASAL SPRAY NS SCH (09:52)
[2022-11-21] MEDS: LACTATED RINGERS SOLUTION 1,000 ML IV SCH (17:06)
[2022-11-22] MEDS: lamoTRIgine 100 MG TABLET GT SCH ×3 (05:54→23:03)
[2022-11-22] MEDS: levETIRAcetam 500 MG/5 ML ORAL SOLUTION (UNIT-DOSE CUPS) GT SCH ×3 (05:55→23:03)
[2022-11-22] MEDS: HEPARIN NA (PORCINE) 5,000 UNITS/ML 1ML VIAL SQ SCH ×3 (06:03→23:03)
[2022-11-22] MEDS: BUDESONIDE 0.5 MG/2 ML INH SUSP VIAL NEB SCH ×2 (08:37→20:15)
[2022-11-22] MEDS ORDERED: KCL 10 MEQ IVPB 10 MEQ/100 ML INFUS.BAG IVPB SCH (11:00)
[2022-11-22] MEDS: POLYETHYLENE GLYCOL (HEALTHYLAX) 3350 17 GM PACKET PO SCH ×2 (11:26→23:03)
[2022-11-22] MEDS: BISACODYL 5 MG TABLET.DR (FP) PO SCH (11:27)
[2022-11-22] MEDS: METOPROLOL TARTRATE 25 MG TABLET (FP) PEG SCH ×2 (11:27→23:03)
[2022-11-22] MEDS: diazePAM 2 MG TABLET GT SCH ×2 (11:27→23:03)
[2022-11-22] MEDS: LOSARTAN POTASSIUM 50 MG TABLET GT SCH (11:28)
[2022-11-22] MEDS: amLODIPine BESYLATE 10 MG TABLET (FP) GT SCH (11:28)
[2022-11-22] MEDS: FLUTICASONE PROP 0.05% 16 GM NASAL SPRAY NS SCH (11:29)
[2022-11-22] MEDS: cloBAZam 10 MG TABLET GT SCH ×2 (11:33→23:03)
[2022-11-22 13:03] LABS: BASO % 0.2 % (0-2.0); EOS % 2.2 % (0-4.5); HEMATOCRIT 40.4 % (35.4-49); LYMPH % 21.6 % (8-40); MCH 28.3 pg (25.7-33.7); MCHC 34.6 g/dl (32.0-35.9); MEAN CELL VOLUME 81.9 fl (80-96); MEAN PLT VOLUME 8.5 fl (7.5-11.1); MONO % 11.4 % (3.8-10.2); NEUT % 64.6 % (42.8-82.8); PLATELET COUNT 183 10^3/uL (134-434); RBC 4.94 M/mm3 (4.00-5.60); RDW 15.3 % (11.9-15.9)
[2022-11-22 13:19] LABS: CHLORIDE 114 mmol/L (98-107); SODIUM 148 mmol/L (136-145)
[2022-11-22 13:21] LABS: BLOOD UREA NITROGEN 14.7 mg/dL (7-18); CALCIUM 8.9 mg/dL (8.5-10.1); CO2 29 mmol/L (21-32); GLUCOSE,RANDOM 71 mg/dL (74-106); MAGNESIUM 1.8 mg/dL (1.8-2.4)
[2022-11-22 13:25] LABS: CREATININE 0.5 mg/dL (0.55-1.3)
[2022-11-22 13:45] LABS: ANION GAP 6 MMOL/L (8-16); POTASSIUM 2.8 mmol/L (3.5-5.1)
[2022-11-22] MEDS ORDERED: POTASSIUM CHLORIDE ORAL LIQUID 20 MEQ/15 ML PO SCH (14:00)
[2022-11-22] MEDS ORDERED: POTASSIUM CHLORIDE ORAL LIQUID 20 MEQ/15 ML GT ONE ×2 (14:00→14:45)
[2022-11-22] MEDS: POTASSIUM CHLORIDE ORAL LIQUID 20 MEQ/15 ML GT SCH ×3 (15:48→20:28)
[2022-11-22 22:15] LABS: POTASSIUM 5.9 mmol/L (3.5-5.1)
[2022-11-22 22:20] LABS: CREATININE 0.6 mg/dL (0.55-1.3)
[2022-11-23] MEDS: lamoTRIgine 100 MG TABLET GT SCH ×3 (05:53→23:16)
[2022-11-23] MEDS: HEPARIN NA (PORCINE) 5,000 UNITS/ML 1ML VIAL SQ SCH ×3 (05:53→23:15)
[2022-11-23] MEDS: levETIRAcetam 500 MG/5 ML ORAL SOLUTION (UNIT-DOSE CUPS) GT SCH ×3 (05:56→23:16)
[2022-11-23] MEDS: BUDESONIDE 0.5 MG/2 ML INH SUSP VIAL NEB SCH ×2 (08:13→20:00)
[2022-11-23 10:41] LABS: BASO % 0.1 % (0-2.0); EOS % 3.7 % (0-4.5); HEMATOCRIT 42.2 % (35.4-49); HEMOGLOBIN 13.9 GM/dL (11.7-16.9); LYMPH % 21.2 % (8-40); MCH 27.4 pg (25.7-33.7); MCHC 32.8 g/dl (32.0-35.9); MEAN CELL VOLUME 83.3 fl (80-96); MEAN PLT VOLUME 8.8 fl (7.5-11.1); MONO % 13.9 % (3.8-10.2); NEUT % 61.1 % (42.8-82.8); PLATELET COUNT 196 10^3/uL (134-434); RBC 5.07 M/mm3 (4.00-5.60); WHITE BLOOD COUNT 6.7 K/mm3 (4.0-10.0)
[2022-11-23] MEDS: BISACODYL 5 MG TABLET.DR (FP) PO SCH (10:52)
[2022-11-23] MEDS: POLYETHYLENE GLYCOL (HEALTHYLAX) 3350 17 GM PACKET PO SCH ×2 (10:54→23:15)
[2022-11-23] MEDS: LOSARTAN POTASSIUM 50 MG TABLET GT SCH (10:55)
[2022-11-23] MEDS: cloBAZam 10 MG TABLET GT SCH ×2 (10:56→23:16)
[2022-11-23] MEDS: amLODIPine BESYLATE 10 MG TABLET (FP) GT SCH (10:56)
[2022-11-23] MEDS: METOPROLOL TARTRATE 25 MG TABLET (FP) PEG SCH ×2 (10:57→23:16)
[2022-11-23] MEDS: diazePAM 2 MG TABLET GT SCH ×2 (10:57→23:16)
[2022-11-23] MEDS: FLUTICASONE PROP 0.05% 16 GM NASAL SPRAY NS SCH (10:57)
[2022-11-23 10:59] LABS: POTASSIUM 4.9 mmol/L (3.5-5.1)
[2022-11-23] MEDS: MINERAL OIL/PET HY-PHL TOPICAL OINTMENT 454 GM JAR TP SCH (10:59)
[2022-11-23 11:00] LABS: CALCIUM 9.3 mg/dL (8.5-10.1)
[2022-11-23 11:01] LABS: BLOOD UREA NITROGEN 11.5 mg/dL (7-18)
[2022-11-23 11:04] LABS: CREATININE 0.5 mg/dL (0.55-1.3)
[2022-11-23] MEDS ORDERED: MAGNESIUM 1GM/D5W 100ML - 100 ML IVPB IVPB ONE (11:30)
[2022-11-24] MEDS: lamoTRIgine 100 MG TABLET GT SCH ×3 (07:07→23:38)
[2022-11-24] MEDS: HEPARIN NA (PORCINE) 5,000 UNITS/ML 1ML VIAL SQ SCH ×3 (07:07→23:38)
[2022-11-24] MEDS: levETIRAcetam 500 MG/5 ML ORAL SOLUTION (UNIT-DOSE CUPS) GT SCH ×3 (07:07→23:38)
[2022-11-24] MEDS: BUDESONIDE 0.5 MG/2 ML INH SUSP VIAL NEB SCH ×2 (07:36→20:22)
[2022-11-24] MEDS: MINERAL OIL/PET HY-PHL TOPICAL OINTMENT 454 GM JAR TP SCH (09:53)
[2022-11-24] MEDS: POLYETHYLENE GLYCOL (HEALTHYLAX) 3350 17 GM PACKET PO SCH ×2 (09:53→23:36)
[2022-11-24] MEDS: METOPROLOL TARTRATE 25 MG TABLET (FP) PEG SCH ×2 (09:53→23:37)
[2022-11-24] MEDS: diazePAM 2 MG TABLET GT SCH ×2 (09:54→23:37)
[2022-11-24] MEDS: LOSARTAN POTASSIUM 50 MG TABLET GT SCH (09:54)
[2022-11-24] MEDS: FLUTICASONE PROP 0.05% 16 GM NASAL SPRAY NS SCH (09:54)
[2022-11-24] MEDS: cloBAZam 10 MG TABLET GT SCH ×2 (09:54→23:37)
[2022-11-24] MEDS: BISACODYL 5 MG TABLET.DR (FP) PO SCH (09:54)
[2022-11-24] MEDS ORDERED: ALBUTEROL SO4 2.5/IPRATROPIUM 0.5 INH SOL 3 ML VIAL.NEB. NEB PRN (13:49)
[2022-11-24] MEDS ORDERED: LORATADINE 10 MG TABLET GT ONE (13:50)
[2022-11-24] MEDS ORDERED: SODIUM PHOSPHATE/NA BIPHOS 133 ML ENEMA RC ONE (13:53)
[2022-11-24] MEDS ORDERED: MONTELUKAST NA 10 MG TABLET PO SCH (14:00)
[2022-11-24] MEDS ORDERED: MONTELUKAST NA 10 MG TABLET GT SCH (14:00)
[2022-11-25] MEDS: levETIRAcetam 500 MG/5 ML ORAL SOLUTION (UNIT-DOSE CUPS) GT SCH (06:32)
[2022-11-25] MEDS: HEPARIN NA (PORCINE) 5,000 UNITS/ML 1ML VIAL SQ SCH ×2 (06:33→13:01)
[2022-11-25] MEDS: lamoTRIgine 100 MG TABLET GT SCH ×2 (06:33→13:01)
[2022-11-25] MEDS: BUDESONIDE 0.5 MG/2 ML INH SUSP VIAL NEB SCH (08:19)
[2022-11-25 10:10] VITALS: BP 152/87; PULSE 79; RESP 18; TEMP 98.5
[2022-11-25] MEDS: LOSARTAN POTASSIUM 50 MG TABLET GT SCH (10:12)
[2022-11-25] MEDS: cloBAZam 10 MG TABLET GT SCH (10:13)
[2022-11-25] MEDS: BISACODYL 5 MG TABLET.DR (FP) PO SCH (10:13)
[2022-11-25] MEDS: POLYETHYLENE GLYCOL (HEALTHYLAX) 3350 17 GM PACKET PO SCH (10:13)
[2022-11-25] MEDS: FLUTICASONE PROP 0.05% 16 GM NASAL SPRAY NS SCH (10:14)
[2022-11-25] MEDS: diazePAM 2 MG TABLET GT SCH (10:14)
[2022-11-25] MEDS: METOPROLOL TARTRATE 25 MG TABLET (FP) PEG SCH (10:14)
[2022-11-25 11:35] LABS: POTASSIUM 3.4 mmol/L (3.5-5.1)
[2022-11-25 11:40] LABS: CREATININE 0.5 mg/dL (0.55-1.3)
[2022-11-25] MEDS ORDERED: POTASSIUM CHLORIDE ORAL LIQUID 20 MEQ/15 ML GT ONE (11:43)
== END 2022-11-25 15:00 | disposition home or self-care (01) | DRG 254 ==
LOC: JER 05:33 → JERBED 10:12 → J7W 21:27
PROVIDERS: ADMIT Internal Medicine; ATTEND Internal Medicine
DX: K59.81 Ogilvie syndrome (principal); F73 Profound intellectual disabilities; K56.7 Ileus, unspecified; N31.9 Neuromuscular dysfunction of bladder, unspecified; R53.2 Functional quadriplegia; E78.5 Hyperlipidemia, unspecified; G40.909 Epilepsy, unspecified, not intractable, without status epilepticus; G80.8 Other cerebral palsy; I10 Essential (primary) hypertension; K59.00 Constipation, unspecified; P94.2 Congenital hypotonia; R47.89 Other speech disturbances; F81.9 Developmental disorder of scholastic skills, unspecified; G91.1 Obstructive hydrocephalus; E87.0 Hyperosmolality and hypernatremia; N39.0 Urinary tract infection, site not specified; B96.1 Klebsiella pneumoniae [K. pneumoniae] as the cause of diseases classified elsewhere; Z74.01 Bed confinement status; E87.6 Hypokalemia
CPT/HCPCS: 36415; 74018-TC-FY; 74176-TC; 80048; 80053; 81003; 83605; 83735; 84100; 85025; 87086; 87186; 93005; 93010; 94640; 94761; 99285-25; C9803-CS; J1644; U0003; U0005

== ENCOUNTER 2023-03-18 10:55 | Observation (INO) | payer OTHER ==
[2023-03-18 12:53] LABS: BASO % 0.2 % (0-2.0); EOS % 4.7 % (0-4.5); HEMATOCRIT 46.3 % (35.4-49); HEMOGLOBIN 15.4 GM/dL (11.7-16.9); LYMPH % 12.2 % (8-40); MCH 26.4 pg (25.7-33.7); MCHC 33.2 g/dl (32.0-35.9); MEAN CELL VOLUME 79.5 fl (80-96); MEAN PLT VOLUME 8.8 fl (7.5-11.1); MONO % 10.2 % (3.8-10.2); NEUT % 72.7 % (42.8-82.8); PLATELET COUNT 139 10^3/uL (134-434); RBC 5.83 M/mm3 (4.00-5.60); RDW 15.6 % (11.9-15.9); WHITE BLOOD COUNT 8.4 K/mm3 (4.0-10.0)
[2023-03-18 13:09] LABS: POTASSIUM 5.2 mmol/L (3.5-5.1)
[2023-03-18 13:11] LABS: ALBUMIN 3.6 g/dl (3.4-5.0); BLOOD UREA NITROGEN 7.5 mg/dL (7-18)
[2023-03-18 13:14] LABS: CREATININE 0.4 mg/dL (0.55-1.3)
[2023-03-18 13:16] LABS: BILIRUBIN,TOTAL 0.5 mg/dL (0.2-1); TOT PROT 7.4 g/dl (6.4-8.2)
[2023-03-18 14:14] LABS: INR 1.1 (0.83-1.09); PROTHROMBIN TIME (PATIENT) 12.7 SEC (9.7-13.0)
[2023-03-18 14:17] LABS: ACTIVATED PTT 40.1 SECONDS (25.2-36.5)
[2023-03-18] MEDS ORDERED: PANTOPRAZOLE SODIUM 40 MG VIAL IVPB ONE (16:32)
[2023-03-18] MEDS ORDERED: PANTOPRAZOLE SODIUM 40 MG/100 ML BAG IVPB ONE (16:37)
[2023-03-18] MEDS: SODIUM CHLORIDE 1,000 ML IV SCH (17:22)
[2023-03-18] MEDS ORDERED: METOPROLOL TARTRATE 25 MG TABLET (FP) ONE (21:32)
[2023-03-18] MEDS ORDERED: METOPROLOL TARTRATE 50 MG TABLET (FP) ONE (21:32)
[2023-03-18] MEDS ORDERED: diazePAM 2 MG TABLET ONE (21:32)
[2023-03-18] MEDS ORDERED: lamoTRIgine 100 MG TABLET ONE (21:33)
[2023-03-18] MEDS: METOPROLOL TARTRATE 25 MG, METOPROLOL TARTRATE 50 MG PEG SCH (21:45)
[2023-03-18] MEDS: levETIRAcetam 500 MG/5 ML ORAL SOLUTION (UNIT-DOSE CUPS) GT SCH (21:45)
[2023-03-18] MEDS: diazePAM 2 MG TABLET GT SCH (21:45)
[2023-03-18] MEDS: lamoTRIgine 100 MG TABLET GT SCH (21:45)
[2023-03-18] MEDS ORDERED: METOPROLOL TARTRATE 50 MG TABLET (FP) PEG SCH (22:00)
[2023-03-19] MEDS ORDERED: levETIRAcetam 500 MG/5 ML ORAL SOLUTION (UNIT-DOSE CUPS) GT SCH (05:00)
[2023-03-19] MEDS ORDERED: lamoTRIgine 100 MG TABLET ONE (05:34)
[2023-03-19] MEDS: lamoTRIgine 100 MG TABLET GT SCH ×3 (06:48→23:17)
[2023-03-19] MEDS: levETIRAcetam 500 MG/5 ML ORAL SOLUTION (UNIT-DOSE CUPS) GT SCH ×3 (08:39→23:18)
[2023-03-19] MEDS ORDERED: diazePAM 2 MG TABLET ONE (09:12)
[2023-03-19] MEDS ORDERED: cloBAZam 10 MG TABLET ONE (09:12)
[2023-03-19] MEDS: METOPROLOL TARTRATE 25 MG, METOPROLOL TARTRATE 50 MG PEG SCH ×2 (09:43→23:16)
[2023-03-19] MEDS: LOSARTAN POTASSIUM 50 MG TABLET GT SCH (09:43)
[2023-03-19] MEDS: FOLIC ACID 1 MG TABLET (FP) GT SCH (09:43)
[2023-03-19] MEDS: amLODIPine BESYLATE 10 MG TABLET (FP) GT SCH (09:44)
[2023-03-19] MEDS: cloBAZam 10 MG TABLET GT SCH (09:44)
[2023-03-19] MEDS: diazePAM 2 MG TABLET GT SCH ×2 (09:44→23:17)
[2023-03-19 12:40] LABS: BASO % 0.4 % (0-2.0); EOS % 3.8 % (0-4.5); HEMATOCRIT 47.7 % (35.4-49); HEMOGLOBIN 15.4 GM/dL (11.7-16.9); LYMPH % 14.2 % (8-40); MCH 26.1 pg (25.7-33.7); MCHC 32.3 g/dl (32.0-35.9); MEAN CELL VOLUME 80.9 fl (80-96); MEAN PLT VOLUME 8.3 fl (7.5-11.1); MONO % 10.4 % (3.8-10.2); NEUT % 71.2 % (42.8-82.8); PLATELET COUNT 200 10^3/uL (134-434); RDW 15.8 % (11.9-15.9); WHITE BLOOD COUNT 7.1 K/mm3 (4.0-10.0)
[2023-03-19 12:59] LABS: POTASSIUM 3.6 mmol/L (3.5-5.1)
[2023-03-19 13:00] LABS: ALBUMIN 3.6 g/dl (3.4-5.0); BLOOD UREA NITROGEN 9.1 mg/dL (7-18)
[2023-03-19 13:01] LABS: CALCIUM 8.4 mg/dL (8.5-10.1)
[2023-03-19 13:05] LABS: CREATININE 0.5 mg/dL (0.55-1.3); PHOSPHOROUS 2.7 mg/dL (2.5-4.9)
[2023-03-19 13:06] LABS: BILIRUBIN,TOTAL 0.5 mg/dL (0.2-1); TOT PROT 7.8 g/dl (6.4-8.2)
[2023-03-19] MEDS: SODIUM CHLORIDE 1,000 ML IV SCH ×2 (15:37→18:07)
[2023-03-20] MEDS: lamoTRIgine 100 MG TABLET GT SCH ×3 (06:22→22:01)
[2023-03-20] MEDS: levETIRAcetam 500 MG/5 ML ORAL SOLUTION (UNIT-DOSE CUPS) GT SCH ×3 (06:23→22:00)
[2023-03-20] MEDS ORDERED: PANTOPRAZOLE SODIUM 40 MG VIAL IVPUSH SCH (10:00)
[2023-03-20] MEDS: METOPROLOL TARTRATE 25 MG, METOPROLOL TARTRATE 50 MG PEG SCH ×2 (10:07→22:01)
[2023-03-20] MEDS: cloBAZam 10 MG TABLET GT SCH (10:07)
[2023-03-20] MEDS: LOSARTAN POTASSIUM 50 MG TABLET GT SCH (10:07)
[2023-03-20] MEDS: amLODIPine BESYLATE 10 MG TABLET (FP) GT SCH (10:08)
[2023-03-20] MEDS: FOLIC ACID 1 MG TABLET (FP) GT SCH (10:08)
[2023-03-20] MEDS: diazePAM 2 MG TABLET GT SCH ×2 (10:08→22:00)
[2023-03-20 10:14] LABS: BASO % 0.3 % (0-2.0); EOS % 5.6 % (0-4.5); HEMATOCRIT 45.1 % (35.4-49); HEMOGLOBIN 14.3 GM/dL (11.7-16.9); LYMPH % 20.8 % (8-40); MCH 25.8 pg (25.7-33.7); MCHC 31.6 g/dl (32.0-35.9); MEAN CELL VOLUME 81.6 fl (80-96); MEAN PLT VOLUME 9.8 fl (7.5-11.1); MONO % 11.7 % (3.8-10.2); NEUT % 61.6 % (42.8-82.8); PLATELET COUNT 213 10^3/uL (134-434); RBC 5.53 M/mm3 (4.00-5.60); RDW 15.4 % (11.9-15.9); WHITE BLOOD COUNT 5.9 K/mm3 (4.0-10.0)
[2023-03-20 10:28] LABS: POTASSIUM 4.1 mmol/L (3.5-5.1)
[2023-03-20 10:44] LABS: ALBUMIN 3.2 g/dl (3.4-5.0); BLOOD UREA NITROGEN 16.7 mg/dL (7-18); CALCIUM 8.8 mg/dL (8.5-10.1)
[2023-03-20 10:47] LABS: BILIRUBIN,DIRECT 0.1 mg/dL (0.0-0.2); CREATININE 0.6 mg/dL (0.55-1.3)
[2023-03-20 10:49] LABS: BILIRUBIN,TOTAL 0.4 mg/dL (0.2-1)
[2023-03-20] MEDS ORDERED: IRON SUCROSE INJECTION 200 MG in SODIUM CHLORIDE 90 ML IVPB ONE (14:00)
[2023-03-20 14:48] VITALS: RESP 18
[2023-03-20 14:54] VITALS: BMI 20.5
[2023-03-21] MEDS: lamoTRIgine 100 MG TABLET GT SCH ×2 (06:52→14:13)
[2023-03-21] MEDS: levETIRAcetam 500 MG/5 ML ORAL SOLUTION (UNIT-DOSE CUPS) GT SCH ×2 (06:54→14:14)
[2023-03-21] MEDS: METOPROLOL TARTRATE 25 MG, METOPROLOL TARTRATE 50 MG PEG SCH (09:36)
[2023-03-21] MEDS: FOLIC ACID 1 MG TABLET (FP) GT SCH (09:37)
[2023-03-21] MEDS: amLODIPine BESYLATE 10 MG TABLET (FP) GT SCH (09:37)
[2023-03-21] MEDS: cloBAZam 10 MG TABLET GT SCH (09:37)
[2023-03-21] MEDS: LOSARTAN POTASSIUM 50 MG TABLET GT SCH (09:37)
[2023-03-21] MEDS: diazePAM 2 MG TABLET GT SCH (09:39)
[2023-03-21] MEDS ORDERED: FAMOTIDINE 20 MG/2.5 ML ORAL LIQUID NGT SCH (10:00)
[2023-03-21 11:23] LABS: BASO % 0.4 % (0-2.0); HEMATOCRIT 42.4 % (35.4-49); HEMOGLOBIN 14.2 GM/dL (11.7-16.9); LYMPH % 19.7 % (8-40); MCH 26.7 pg (25.7-33.7); MCHC 33.6 g/dl (32.0-35.9); MEAN CELL VOLUME 79.6 fl (80-96); MEAN PLT VOLUME 8.6 fl (7.5-11.1); MONO % 10.5 % (3.8-10.2); NEUT % 64.4 % (42.8-82.8); PLATELET COUNT 190 10^3/uL (134-434); RBC 5.33 M/mm3 (4.00-5.60); RDW 15.4 % (11.9-15.9); WHITE BLOOD COUNT 6.5 K/mm3 (4.0-10.0)
[2023-03-21 11:42] LABS: POTASSIUM 4.1 mmol/L (3.5-5.1)
[2023-03-21 11:48] LABS: BLOOD UREA NITROGEN 6.9 mg/dL (7-18); CALCIUM 8.4 mg/dL (8.5-10.1)
[2023-03-21 11:49] LABS: ALBUMIN 3.5 g/dl (3.4-5.0); MAGNESIUM 1.7 mg/dL (1.8-2.4)
[2023-03-21 11:51] LABS: CREATININE 0.5 mg/dL (0.55-1.3)
[2023-03-21 11:53] LABS: BILIRUBIN,TOTAL 0.2 mg/dL (0.2-1); TOT PROT 7.5 g/dl (6.4-8.2)
[2023-03-21 16:08] VITALS: BP 110/69; PULSE 82; TEMP 98.3
== END 2023-03-21 15:51 ==
LOC: JER 10:55 → JERBED 16:27 → J8W 03-19 10:25
PROVIDERS: ADMIT Internal Medicine; ATTEND Nurse Practitioner Acute Care
PROC: 3E033GC Introduction of Other Therapeutic Substance into Peripheral Vein, Percutaneous Approach (ICD-10-PCS; principal; 2023-03-18)
DX: K92.1 Melena (principal); K64.9 Unspecified hemorrhoids; R94.5 Abnormal results of liver function studies; K59.81 Ogilvie syndrome; Z93.1 Gastrostomy status; K42.9 Umbilical hernia without obstruction or gangrene; F72 Severe intellectual disabilities; J45.909 Unspecified asthma, uncomplicated; G91.1 Obstructive hydrocephalus; G80.8 Other cerebral palsy; K80.50 Calculus of bile duct without cholangitis or cholecystitis without obstruction; K59.00 Constipation, unspecified; I10 Essential (primary) hypertension
CPT/HCPCS: 0241U-QW; 36415; 74177-TC; 80053; 80076; 82272; 82728; 82977; 83540; 83550; 83605; 83690; 83735; 84100; 84443; 85025; 85610; 85730; 86850; 86900; 86901; 87635; 93005; 93010; 96365; 96375; 96376; 99285-25; G0378; J1756; Q9967

== ENCOUNTER 2023-08-05 13:47 | Inpatient (IN) | payer OTHER ==
[2023-08-05] MEDS ORDERED: SODIUM CHLORIDE 0.9% 500 ML INFUS.BAG IV ONE ×2 (15:39→18:38)
[2023-08-05 16:23] LABS: BASO % 0.3 % (0-2.0); EOS % 2.1 % (0-4.5); HEMATOCRIT 43.1 % (35.4-49); HEMOGLOBIN 14.3 GM/dL (11.7-16.9); LYMPH % 11.7 % (8-40); MCHC 33.2 g/dl (32.0-35.9); MEAN CELL VOLUME 81.2 fl (80-96); MEAN PLT VOLUME 8.2 fl (7.5-11.1); MONO % 10.5 % (3.8-10.2); NEUT % 75.4 % (42.8-82.8); PLATELET COUNT 192 10^3/uL (134-434); RBC 5.31 M/mm3 (4.00-5.60); RDW 16.2 % (11.9-15.9)
[2023-08-05 16:43] LABS: CHLORIDE 101 mmol/L (98-107); SODIUM 134 mmol/L (136-145)
[2023-08-05 16:44] LABS: BLOOD UREA NITROGEN 7.9 mg/dL (7-18); CALCIUM 9.2 mg/dL (8.5-10.1)
[2023-08-05 16:45] LABS: CO2 29 mmol/L (21-32); GLUCOSE,RANDOM 73 mg/dL (74-106)
[2023-08-05 16:48] LABS: CREATININE 0.5 mg/dL (0.55-1.3); SGOT/AST 73 U/L (15-37); SGPT/ALT 51 U/L (13-61)
[2023-08-05 16:50] LABS: BILIRUBIN,TOTAL 0.3 mg/dL (0.2-1); TOT PROT 7.5 g/dl (6.4-8.2)
[2023-08-05 16:51] LABS: ALK PHOS 145 U/L (45-117)
[2023-08-05 16:59] LABS: EPI CELLS 21 /uL (0-25.1); HYALINE CASTS 16 /uL (0-3.1); PH,URINE >= 9.0 (5.0-8.0); URINE APPEARANCE TURBID; URINE BACTERIA >9,000 /uL (0-1359); URINE BILIRUBIN NEGATIVE (NEGATIVE); URINE COLOR YELLOW; URINE GLUCOSE (UA) NEGATIVE (NEGATIVE); URINE KETONE NEGATIVE (NEGATIVE); URINE LEUK ESTERASE 3+ (NEGATIVE); URINE NITRITE NEGATIVE (NEGATIVE); URINE PROTEIN 1+ (NEGATIVE); URINE RBC 60 /uL (0-23.9); URINE UROBILINOGEN 0.2 mg/dL (0.2-1.0); URINE WBC 409 /uL (0-25.8)
[2023-08-05 17:12] LABS: ANION GAP 4 mmol/L (4-13); POTASSIUM 6.1 mmol/L (3.5-5.1)
[2023-08-05] MEDS ORDERED: CEFEPIME HCL 2 GM VIAL (RESTRICTED TO ID) IVPB ONE (17:26)
[2023-08-05] MEDS ORDERED: CEFEPIME 2 GM/100 ML BAG IVPB ONE (17:56)
[2023-08-05 18:26] LABS: ACTIVATED PTT 47.5 SECONDS (25.2-36.5); INR 1.13 (0.83-1.09); PROTHROMBIN TIME (PATIENT) 13.1 SEC (9.7-13.0)
[2023-08-05 18:36] LABS: POTASSIUM 3.9 mmol/L (3.5-5.1)
[2023-08-05] MEDS ORDERED: SIMETHICONE 40 MG/0.6 ML BOTTLE PO PRN (18:36)
[2023-08-05] MEDS ORDERED: BISACODYL 10 MG SUPP.RECT RC PRN (18:36)
[2023-08-05 18:38] LABS: BLOOD UREA NITROGEN 7.9 mg/dL (7-18)
[2023-08-05 18:41] LABS: CREATININE 0.4 mg/dL (0.55-1.3)
[2023-08-05] MEDS ORDERED: DEXTROSE 50%-WATER - 25 GM/50 ML VIAL IVPUSH ONE (18:46)
[2023-08-05] MEDS ORDERED: SODIUM CHLORIDE 500 ML IV STA (18:49)
[2023-08-05] MEDS ORDERED: DEXTROSE 50%-WATER 25 GM/50 ML DISP.SYRIN ONE (19:46)
[2023-08-05] MEDS: METOPROLOL TARTRATE 50 MG TABLET (FP) PEG SCH (21:18)
[2023-08-05] MEDS ORDERED: diazePAM 2 MG TABLET ONE (21:37)
[2023-08-05] MEDS: diazePAM 2 MG TABLET GT SCH (21:46)
[2023-08-05] MEDS ORDERED: DOCUSATE NA 100 MG/10 ML UNIT-DOSE CUPS PO SCH (22:00)
[2023-08-05] MEDS ORDERED: FAMOTIDINE 20 MG TABLET PEG SCH (22:00)
[2023-08-05] MEDS ORDERED: PATIENT'S OWN MEDICATION (NON-FORMULARY) (Methylcellulose [Fiber Laxative] 500 MG Tablet) GT SCH (22:00)
[2023-08-05] MEDS: BUDESONIDE 0.5 MG/2 ML INH SUSP VIAL NEB SCH (23:36)
[2023-08-05] MEDS ORDERED: lamoTRIgine 100 MG TABLET ONE (23:38)
[2023-08-05] MEDS ORDERED: LORATADINE 10 MG TABLET ONE (23:38)
[2023-08-05] MEDS ORDERED: FAMOTIDINE 20 MG TABLET ONE (23:38)
[2023-08-05] MEDS ORDERED: lamoTRIgine 25 MG TABLET ONE (23:38)
[2023-08-05] MEDS: MAGNESIUM HYDROX 2400MG/30ML ORAL SUSPENSION 30 ML CUP GT SCH (23:45)
[2023-08-05] MEDS: lamoTRIgine 100 MG TABLET GT SCH (23:45)
[2023-08-05] MEDS: LORATADINE 10 MG TABLET GT SCH (23:45)
[2023-08-06] MEDS ORDERED: SIMETHICONE 40 MG/0.6 ML BOTTLE GT PRN (05:52)
[2023-08-06] MEDS ORDERED: levETIRAcetam 500 MG/5 ML ORAL SOLUTION (UNIT-DOSE CUPS) GT SCH (06:00)
[2023-08-06 07:42] LABS: HEMATOCRIT 44.1 % (35.4-49); HEMOGLOBIN 14.9 GM/dL (11.7-16.9); MCH 27.7 pg (25.7-33.7); MCHC 33.8 g/dl (32.0-35.9); MEAN CELL VOLUME 81.9 fl (80-96); MEAN PLT VOLUME 8.4 fl (7.5-11.1); PLATELET COUNT 195 10^3/uL (134-434); RBC 5.39 M/mm3 (4.00-5.60); RDW 16.2 % (11.9-15.9); WHITE BLOOD COUNT 7.5 K/mm3 (4.0-10.0)
[2023-08-06 07:58] LABS: POTASSIUM 3.5 mmol/L (3.5-5.1)
[2023-08-06 08:01] LABS: BLOOD UREA NITROGEN 5.7 mg/dL (7-18); CALCIUM 9.3 mg/dL (8.5-10.1)
[2023-08-06 08:05] LABS: CREATININE 0.5 mg/dL (0.55-1.3)
[2023-08-06] MEDS ORDERED: MULTIVITAMINS (DAILY MVI) TABLET (FP) NR SCH (10:00)
[2023-08-06] MEDS ORDERED: PATIENT'S OWN MEDICATION (NON-FORMULARY) (Lactobacillus Acidophilus [Acidophilus Lactobaci GT SCH (10:00)
[2023-08-06] MEDS ORDERED: CLOBAZAM 5 MG PO SCH (10:00)
[2023-08-06] MEDS ORDERED: BISACODYL 5 MG TABLET.DR (FP) PO SCH (10:00)
[2023-08-06] MEDS ORDERED: PATIENT'S OWN MEDICATION (NON-FORMULARY) (Linaclotide [Linzess] 290 MCG Capsule) PO SCH (10:00)
[2023-08-06] MEDS ORDERED: MONTELUKAST NA 10 MG TABLET PO SCH (10:00)
[2023-08-06] MEDS: BUDESONIDE 0.5 MG/2 ML INH SUSP VIAL NEB SCH ×2 (10:35→20:24)
[2023-08-06] MEDS ORDERED: cloBAZam 10 MG TABLET ONE (11:11)
[2023-08-06] MEDS ORDERED: diazePAM 2 MG TABLET ONE ×2 (11:11→23:03)
[2023-08-06] MEDS: LACTOBACILLUS ACIDOPHILUS 1 TABLET GT SCH (11:30)
[2023-08-06] MEDS: lamoTRIgine 100 MG TABLET GT SCH ×2 (11:30→23:14)
[2023-08-06] MEDS: MULTIVIT-MINERALS ORAL LIQUID GT SCH (11:30)
[2023-08-06] MEDS: BISACODYL 10 MG SUPP.RECT RC SCH (11:30)
[2023-08-06] MEDS: FLUTICASONE PROP 0.05% 16 GM NASAL SPRAY NS SCH (11:30)
[2023-08-06] MEDS: LOSARTAN POTASSIUM 50 MG TABLET GT SCH (11:30)
[2023-08-06] MEDS: diazePAM 2 MG TABLET GT SCH ×2 (11:30→23:14)
[2023-08-06] MEDS: ENOXAPARIN NA (PORCINE) 40 MG/0.4 ML DISP.SYRIN SQ SCH (11:30)
[2023-08-06] MEDS: MAGNESIUM HYDROX 2400MG/30ML ORAL SUSPENSION 30 ML CUP GT SCH ×2 (11:30→23:14)
[2023-08-06] MEDS: amLODIPine BESYLATE 10 MG TABLET (FP) GT SCH (11:30)
[2023-08-06] MEDS: levETIRAcetam 500 MG/5 ML ORAL SOLUTION (UNIT-DOSE CUPS) GT SCH ×2 (11:30→23:14)
[2023-08-06] MEDS: FOLIC ACID 1 MG TABLET (FP) GT SCH (11:30)
[2023-08-06] MEDS: METOPROLOL TARTRATE 50 MG TABLET (FP) PEG SCH ×2 (11:30→23:14)
[2023-08-06] MEDS: cloBAZam 10 MG TABLET GT SCH (11:30)
[2023-08-06] MEDS: DOCUSATE NA 100 MG/10 ML UNIT-DOSE CUPS GT SCH ×2 (11:30→23:14)
[2023-08-06] MEDS ORDERED: CEFEPIME 1 GM/100 ML BAG IVPB ONE ×2 (16:41→23:15)
[2023-08-06] MEDS: CEFEPIME 1 GM in DEXTROSE 5%-WATER 100 ML IVPB SCH ×2 (16:55→23:14)
[2023-08-06] MEDS ORDERED: CLOBAZAM 5 MG GT SCH (22:00)
[2023-08-06] MEDS ORDERED: RANOLAZINE E.R. 500 MG TABLET (FP) ONE (22:07)
[2023-08-06] MEDS ORDERED: SACUBITRIL/VALSARTAN 24 MG-26 MG TABLET ONE (22:07)
[2023-08-06] MEDS ORDERED: ATORVASTATIN CA 80 MG TABLET (FP) ONE (22:07)
[2023-08-06] MEDS ORDERED: WARFARIN NA 1 MG TABLET ONE (22:32)
[2023-08-06] MEDS ORDERED: WARFARIN NA 5 MG TABLET ONE (22:32)
[2023-08-06] MEDS: FAMOTIDINE 20 MG/2.5 ML ORAL LIQUID PEG SCH (23:14)
[2023-08-06] MEDS: MONTELUKAST NA 10 MG TABLET GT SCH (23:14)
[2023-08-06] MEDS: LORATADINE 10 MG TABLET GT SCH (23:14)
[2023-08-07] MEDS: BUDESONIDE 0.5 MG/2 ML INH SUSP VIAL NEB SCH ×2 (07:40→20:30)
[2023-08-07] MEDS: ENOXAPARIN NA (PORCINE) 40 MG/0.4 ML DISP.SYRIN SQ SCH (10:20)
[2023-08-07] MEDS: levETIRAcetam 500 MG/5 ML ORAL SOLUTION (UNIT-DOSE CUPS) GT SCH ×2 (10:21→22:22)
[2023-08-07] MEDS: LOSARTAN POTASSIUM 50 MG TABLET GT SCH (10:21)
[2023-08-07] MEDS: CEFEPIME 1 GM in DEXTROSE 5%-WATER 100 ML IVPB SCH ×2 (10:21→22:22)
[2023-08-07] MEDS: cloBAZam 10 MG TABLET GT SCH (10:21)
[2023-08-07] MEDS: LACTOBACILLUS ACIDOPHILUS 1 TABLET GT SCH (10:22)
[2023-08-07] MEDS: FOLIC ACID 1 MG TABLET (FP) GT SCH (10:22)
[2023-08-07] MEDS: diazePAM 2 MG TABLET GT SCH ×2 (10:22→22:23)
[2023-08-07] MEDS: amLODIPine BESYLATE 10 MG TABLET (FP) GT SCH (10:22)
[2023-08-07] MEDS: lamoTRIgine 100 MG TABLET GT SCH ×2 (12:15→22:23)
[2023-08-07 13:38] LABS: BASO % 0.2 % (0-2.0); EOS % 2.3 % (0-4.5); MCH 26.7 pg (25.7-33.7); MCHC 32.6 g/dl (32.0-35.9); MEAN PLT VOLUME 8.8 fl (7.5-11.1); MONO % 7.7 % (3.8-10.2); NEUT % 80.8 % (42.8-82.8); PLATELET COUNT 206 10^3/uL (134-434); RBC 5.98 M/mm3 (4.00-5.60); RDW 15.9 % (11.9-15.9); WHITE BLOOD COUNT 6.3 K/mm3 (4.0-10.0)
[2023-08-07] MEDS: MULTIVIT-MINERALS ORAL LIQUID GT SCH (14:02)
[2023-08-07] MEDS: FLUTICASONE PROP 0.05% 16 GM NASAL SPRAY NS SCH (14:04)
[2023-08-07 14:06] LABS: POTASSIUM 3.8 mmol/L (3.5-5.1)
[2023-08-07 14:09] LABS: ALBUMIN 3.5 g/dl (3.4-5.0); BLOOD UREA NITROGEN 11.4 mg/dL (7-18); CALCIUM 9.4 mg/dL (8.5-10.1)
[2023-08-07 14:12] LABS: CREATININE 0.6 mg/dL (0.55-1.3)
[2023-08-07 14:14] LABS: BILIRUBIN,TOTAL 0.4 mg/dL (0.2-1); TOT PROT 7.8 g/dl (6.4-8.2)
[2023-08-07 15:55] VITALS: BMI 25.5
[2023-08-07] MEDS: DOCUSATE NA 100 MG/10 ML UNIT-DOSE CUPS GT SCH ×2 (19:45→22:22)
[2023-08-07] MEDS: BISACODYL 10 MG SUPP.RECT RC SCH (19:45)
[2023-08-07] MEDS: MAGNESIUM HYDROX 2400MG/30ML ORAL SUSPENSION 30 ML CUP GT SCH ×2 (19:45→22:22)
[2023-08-07] MEDS: LORATADINE 10 MG TABLET GT SCH (22:23)
[2023-08-07] MEDS: FAMOTIDINE 20 MG/2.5 ML ORAL LIQUID PEG SCH (22:23)
[2023-08-07] MEDS: MONTELUKAST NA 10 MG TABLET GT SCH (22:23)
[2023-08-08] MEDS: BUDESONIDE 0.5 MG/2 ML INH SUSP VIAL NEB SCH ×2 (07:19→20:04)
[2023-08-08 08:56] LABS: BASO % 0.4 % (0-2.0); HEMOGLOBIN 14.5 GM/dL (11.7-16.9); LYMPH % 14.9 % (8-40); MCH 26.2 pg (25.7-33.7); MCHC 32.2 g/dl (32.0-35.9); MEAN CELL VOLUME 81.5 fl (80-96); MEAN PLT VOLUME 8.1 fl (7.5-11.1); MONO % 15.2 % (3.8-10.2); NEUT % 65.5 % (42.8-82.8); PLATELET COUNT 186 10^3/uL (134-434); RBC 5.52 M/mm3 (4.00-5.60); RDW 16.3 % (11.9-15.9); WHITE BLOOD COUNT 5.4 K/mm3 (4.0-10.0)
[2023-08-08 09:27] LABS: POTASSIUM 3.8 mmol/L (3.5-5.1)
[2023-08-08 09:30] LABS: CALCIUM 9.4 mg/dL (8.5-10.1)
[2023-08-08 09:31] LABS: ALBUMIN 3.3 g/dl (3.4-5.0); BLOOD UREA NITROGEN 8.4 mg/dL (7-18)
[2023-08-08 09:34] LABS: CREATININE 0.5 mg/dL (0.55-1.3)
[2023-08-08 09:35] LABS: BILIRUBIN,TOTAL 0.3 mg/dL (0.2-1)
[2023-08-08 09:36] LABS: TOT PROT 7.5 g/dl (6.4-8.2)
[2023-08-08] MEDS: MAGNESIUM HYDROX 2400MG/30ML ORAL SUSPENSION 30 ML CUP GT SCH ×2 (09:59→22:01)
[2023-08-08] MEDS: DOCUSATE NA 100 MG/10 ML UNIT-DOSE CUPS GT SCH ×2 (09:59→22:00)
[2023-08-08] MEDS: levETIRAcetam 500 MG/5 ML ORAL SOLUTION (UNIT-DOSE CUPS) GT SCH ×2 (09:59→21:59)
[2023-08-08] MEDS: CEFEPIME 1 GM in DEXTROSE 5%-WATER 100 ML IVPB SCH ×2 (09:59→22:00)
[2023-08-08] MEDS: lamoTRIgine 100 MG TABLET GT SCH ×2 (10:01→22:01)
[2023-08-08] MEDS: MULTIVIT-MINERALS ORAL LIQUID GT SCH (10:01)
[2023-08-08] MEDS: cloBAZam 10 MG TABLET GT SCH (10:02)
[2023-08-08] MEDS: amLODIPine BESYLATE 10 MG TABLET (FP) GT SCH (10:02)
[2023-08-08] MEDS: FOLIC ACID 1 MG TABLET (FP) GT SCH (10:02)
[2023-08-08] MEDS: LOSARTAN POTASSIUM 50 MG TABLET GT SCH (10:03)
[2023-08-08] MEDS: LACTOBACILLUS ACIDOPHILUS 1 TABLET GT SCH (10:03)
[2023-08-08] MEDS: ENOXAPARIN NA (PORCINE) 40 MG/0.4 ML DISP.SYRIN SQ SCH (10:03)
[2023-08-08] MEDS: diazePAM 2 MG TABLET GT SCH ×2 (10:03→22:02)
[2023-08-08] MEDS: BISACODYL 10 MG SUPP.RECT RC SCH (10:03)
[2023-08-08] MEDS: FLUTICASONE PROP 0.05% 16 GM NASAL SPRAY NS SCH (10:17)
[2023-08-08] MEDS: SCOPOLAMINE HYDROBROMIDE 1 PATCH PATCH.TD72 TD SCH (11:39)
[2023-08-08] MEDS: LORATADINE 10 MG TABLET GT SCH (22:01)
[2023-08-08] MEDS: FAMOTIDINE 20 MG/2.5 ML ORAL LIQUID PEG SCH (22:01)
[2023-08-08] MEDS: MONTELUKAST NA 10 MG TABLET GT SCH (22:02)
[2023-08-09] MEDS: BUDESONIDE 0.5 MG/2 ML INH SUSP VIAL NEB SCH ×2 (07:20→20:55)
[2023-08-09] MEDS: CEFEPIME 1 GM in DEXTROSE 5%-WATER 100 ML IVPB SCH (09:57)
[2023-08-09] MEDS: MAGNESIUM HYDROX 2400MG/30ML ORAL SUSPENSION 30 ML CUP GT SCH ×2 (09:57→22:56)
[2023-08-09] MEDS: ENOXAPARIN NA (PORCINE) 40 MG/0.4 ML DISP.SYRIN SQ SCH (09:57)
[2023-08-09] MEDS: DOCUSATE NA 100 MG/10 ML UNIT-DOSE CUPS GT SCH ×2 (09:57→22:55)
[2023-08-09] MEDS: LACTOBACILLUS ACIDOPHILUS 1 TABLET GT SCH (09:58)
[2023-08-09] MEDS: diazePAM 2 MG TABLET GT SCH ×2 (09:58→22:56)
[2023-08-09] MEDS: BISACODYL 10 MG SUPP.RECT RC SCH (09:58)
[2023-08-09] MEDS: lamoTRIgine 100 MG TABLET GT SCH ×2 (09:58→22:56)
[2023-08-09] MEDS: FOLIC ACID 1 MG TABLET (FP) GT SCH (09:58)
[2023-08-09] MEDS: levETIRAcetam 500 MG/5 ML ORAL SOLUTION (UNIT-DOSE CUPS) GT SCH ×2 (09:58→22:55)
[2023-08-09] MEDS: cloBAZam 10 MG TABLET GT SCH ×2 (09:58→22:56)
[2023-08-09] MEDS: MULTIVIT-MINERALS ORAL LIQUID GT SCH (09:59)
[2023-08-09] MEDS: FLUTICASONE PROP 0.05% 16 GM NASAL SPRAY NS SCH (10:03)
[2023-08-09] MEDS: LOSARTAN POTASSIUM 50 MG TABLET GT SCH (10:03)
[2023-08-09 10:30] LABS: HEMATOCRIT 40.8 % (35.4-49); HEMOGLOBIN 13.5 GM/dL (11.7-16.9); MCH 27.1 pg (25.7-33.7); MCHC 33.1 g/dl (32.0-35.9); MEAN CELL VOLUME 81.8 fl (80-96); MEAN PLT VOLUME 9.1 fl (7.5-11.1); PLATELET COUNT 183 10^3/uL (134-434); RBC 4.99 M/mm3 (4.00-5.60); RDW 16.1 % (11.9-15.9)
[2023-08-09 10:47] LABS: POTASSIUM 4.4 mmol/L (3.5-5.1)
[2023-08-09 10:50] LABS: CALCIUM 9.3 mg/dL (8.5-10.1)
[2023-08-09 10:51] LABS: ALBUMIN 3.1 g/dl (3.4-5.0); BLOOD UREA NITROGEN 8.3 mg/dL (7-18)
[2023-08-09 10:54] LABS: CREATININE 0.5 mg/dL (0.55-1.3)
[2023-08-09 10:55] LABS: BILIRUBIN,TOTAL 0.3 mg/dL (0.2-1); TOT PROT 7.1 g/dl (6.4-8.2)
[2023-08-09] MEDS: MEROPENEM 1 GM in DEXTROSE 5%-WATER 100 ML IVPB SCH (18:28)
[2023-08-09] MEDS: MONTELUKAST NA 10 MG TABLET GT SCH (22:56)
[2023-08-09] MEDS: LORATADINE 10 MG TABLET GT SCH (22:56)
[2023-08-09] MEDS: FAMOTIDINE 20 MG/2.5 ML ORAL LIQUID PEG SCH (22:56)
[2023-08-10] MEDS: MEROPENEM 1 GM in DEXTROSE 5%-WATER 100 ML IVPB SCH ×2 (02:47→09:47)
[2023-08-10] MEDS: BUDESONIDE 0.5 MG/2 ML INH SUSP VIAL NEB SCH ×2 (07:25→20:29)
[2023-08-10] MEDS: ENOXAPARIN NA (PORCINE) 40 MG/0.4 ML DISP.SYRIN SQ SCH (09:47)
[2023-08-10] MEDS: DOCUSATE NA 100 MG/10 ML UNIT-DOSE CUPS GT SCH ×2 (09:47→21:43)
[2023-08-10] MEDS: levETIRAcetam 500 MG/5 ML ORAL SOLUTION (UNIT-DOSE CUPS) GT SCH ×2 (09:47→21:43)
[2023-08-10] MEDS: lamoTRIgine 100 MG TABLET GT SCH ×2 (09:48→21:43)
[2023-08-10] MEDS: LACTOBACILLUS ACIDOPHILUS 1 TABLET GT SCH (09:48)
[2023-08-10] MEDS: diazePAM 2 MG TABLET GT SCH ×2 (09:48→22:02)
[2023-08-10] MEDS: METOPROLOL TARTRATE 50 MG TABLET (FP) PEG SCH ×2 (09:48→22:01)
[2023-08-10] MEDS: cloBAZam 10 MG TABLET GT SCH ×2 (09:48→22:01)
[2023-08-10] MEDS: BISACODYL 10 MG SUPP.RECT RC SCH (09:48)
[2023-08-10] MEDS: LOSARTAN POTASSIUM 50 MG TABLET GT SCH (09:48)
[2023-08-10] MEDS: MAGNESIUM HYDROX 2400MG/30ML ORAL SUSPENSION 30 ML CUP GT SCH ×2 (09:49→22:01)
[2023-08-10] MEDS: MULTIVIT-MINERALS ORAL LIQUID GT SCH (09:49)
[2023-08-10] MEDS: FLUTICASONE PROP 0.05% 16 GM NASAL SPRAY NS SCH (09:50)
[2023-08-10] MEDS: FOLIC ACID 1 MG TABLET (FP) GT SCH (09:50)
[2023-08-10 10:38] LABS: BASO % 0.2 % (0-2.0); EOS % 4.2 % (0-4.5); HEMATOCRIT 40.3 % (35.4-49); HEMOGLOBIN 13.3 GM/dL (11.7-16.9); LYMPH % 21.2 % (8-40); MCHC 32.9 g/dl (32.0-35.9); MEAN PLT VOLUME 8.6 fl (7.5-11.1); MONO % 16.9 % (3.8-10.2); NEUT % 57.5 % (42.8-82.8); PLATELET COUNT 176 10^3/uL (134-434); RBC 4.92 M/mm3 (4.00-5.60); RDW 16.6 % (11.9-15.9)
[2023-08-10 10:53] LABS: POTASSIUM 4.1 mmol/L (3.5-5.1)
[2023-08-10 11:00] LABS: BLOOD UREA NITROGEN 7.9 mg/dL (7-18)
[2023-08-10 11:02] LABS: CREATININE 0.4 mg/dL (0.55-1.3)
[2023-08-10 11:05] LABS: TOT PROT 6.8 g/dl (6.4-8.2)
[2023-08-10 11:06] LABS: BILIRUBIN,TOTAL 0.2 mg/dL (0.2-1)
[2023-08-10] MEDS: LORATADINE 10 MG TABLET GT SCH (21:43)
[2023-08-10] MEDS: FAMOTIDINE 20 MG/2.5 ML ORAL LIQUID PEG SCH (22:01)
[2023-08-10] MEDS: MONTELUKAST NA 10 MG TABLET GT SCH (22:01)
[2023-08-11] MEDS: BUDESONIDE 0.5 MG/2 ML INH SUSP VIAL NEB SCH (07:50)
[2023-08-11 09:16] LABS: BASO % 0.2 % (0-2.0); EOS % 3.1 % (0-4.5); HEMATOCRIT 42.5 % (35.4-49); HEMOGLOBIN 13.8 GM/dL (11.7-16.9); LYMPH % 22.2 % (8-40); MCH 26.6 pg (25.7-33.7); MCHC 32.4 g/dl (32.0-35.9); MEAN CELL VOLUME 82.2 fl (80-96); MEAN PLT VOLUME 8.5 fl (7.5-11.1); NEUT % 60.5 % (42.8-82.8); PLATELET COUNT 198 10^3/uL (134-434); RBC 5.17 M/mm3 (4.00-5.60); RDW 16.2 % (11.9-15.9); WHITE BLOOD COUNT 5.1 K/mm3 (4.0-10.0)
[2023-08-11] MEDS: ENOXAPARIN NA (PORCINE) 40 MG/0.4 ML DISP.SYRIN SQ SCH (09:20)
[2023-08-11 09:40] LABS: POTASSIUM 3.9 mmol/L (3.5-5.1)
[2023-08-11 09:59] LABS: CALCIUM 9.1 mg/dL (8.5-10.1)
[2023-08-11 10:00] LABS: ALBUMIN 3.3 g/dl (3.4-5.0); BLOOD UREA NITROGEN 10.3 mg/dL (7-18)
[2023-08-11 10:03] LABS: CREATININE 0.5 mg/dL (0.55-1.3)
[2023-08-11 10:05] LABS: BILIRUBIN,TOTAL 0.2 mg/dL (0.2-1); TOT PROT 6.9 g/dl (6.4-8.2)
[2023-08-11] MEDS: DOCUSATE NA 100 MG/10 ML UNIT-DOSE CUPS GT SCH (10:35)
[2023-08-11] MEDS: FOLIC ACID 1 MG TABLET (FP) GT SCH (10:35)
[2023-08-11] MEDS: SCOPOLAMINE HYDROBROMIDE 1 PATCH PATCH.TD72 TD SCH (10:35)
[2023-08-11] MEDS: METOPROLOL TARTRATE 50 MG TABLET (FP) PEG SCH (10:35)
[2023-08-11] MEDS: MAGNESIUM HYDROX 2400MG/30ML ORAL SUSPENSION 30 ML CUP GT SCH (10:35)
[2023-08-11] MEDS: diazePAM 2 MG TABLET GT SCH (10:35)
[2023-08-11] MEDS: LACTOBACILLUS ACIDOPHILUS 1 TABLET GT SCH (10:35)
[2023-08-11] MEDS: levETIRAcetam 500 MG/5 ML ORAL SOLUTION (UNIT-DOSE CUPS) GT SCH (10:35)
[2023-08-11] MEDS: lamoTRIgine 100 MG TABLET GT SCH (10:36)
[2023-08-11] MEDS: cloBAZam 10 MG TABLET GT SCH (10:36)
[2023-08-11] MEDS: MULTIVIT-MINERALS ORAL LIQUID GT SCH (10:36)
[2023-08-11] MEDS: FLUTICASONE PROP 0.05% 16 GM NASAL SPRAY NS SCH (10:37)
[2023-08-11] MEDS: BISACODYL 10 MG SUPP.RECT RC SCH (10:38)
[2023-08-11] MEDS: LOSARTAN POTASSIUM 50 MG TABLET GT SCH (10:43)
[2023-08-11 12:31] VITALS: BP 128/88; PULSE 58; RESP 16; TEMP 97.7
== END 2023-08-11 15:25 | disposition home or self-care (01) | DRG 466 ==
LOC: JER 13:47 → JERBED 18:06 → UNDOADMOB 18:06 → OBSVTOIN 19:22 → INTOOBSV 19:22 → JERBED 08-06 19:22 → OBSVTOIN 08-06 19:22 → JERBED 08-07 02:10 → J6S 08-07 02:10
PROVIDERS: ADMIT Internal Medicine; ATTEND Internal Medicine
DX: T83.011A Breakdown (mechanical) of indwelling urethral catheter, initial encounter (principal); N31.9 Neuromuscular dysfunction of bladder, unspecified; N39.0 Urinary tract infection, site not specified; G40.909 Epilepsy, unspecified, not intractable, without status epilepticus; J45.909 Unspecified asthma, uncomplicated; K59.09 Other constipation; K56.699 Other intestinal obstruction unspecified as to partial versus complete obstruction; Y83.8 Other surgical procedures as the cause of abnormal reaction of the patient, or of later complication, without mention of misadventure at the time of the procedure; E87.5 Hyperkalemia; G91.1 Obstructive hydrocephalus; G80.8 Other cerebral palsy; K80.20 Calculus of gallbladder without cholecystitis without obstruction; Z93.1 Gastrostomy status
CPT/HCPCS: 0241U-QW; 36415; 71045-TC-FY; 74176-TC; 80048; 80053; 81003; 82962; 83605; 85025; 85027; 85610; 85730; 87086; 87186; 93005; 93010; 94640; 99285-25; G0378

== ENCOUNTER 2024-01-10 21:19 | Inpatient (IN) | payer OTHER ==
[2024-01-10 21:32] VITALS: BMI 22.9
[2024-01-10 22:11] LABS: PH,URINE 8.5 (5.0-8.0); URINE BILIRUBIN 1+ (NEGATIVE); URINE GLUCOSE (UA) Negative (NEGATIVE); URINE KETONE Trace (NEGATIVE); URINE LEUK ESTERASE 3+ (NEGATIVE); URINE NITRITE Positive (NEGATIVE); URINE PROTEIN 2+ (NEGATIVE)
[2024-01-10 22:43] LABS: URINE APPEARANCE CLOUDY; URINE COLOR RED
[2024-01-10 22:51] LABS: POTASSIUM 4.5 mmol/L (3.5-5.1)
[2024-01-10 22:53] LABS: ALBUMIN 4.1 g/dl (3.4-5.0); CALCIUM 9.8 mg/dL (8.5-10.1)
[2024-01-10 22:54] LABS: BLOOD UREA NITROGEN 7.4 mg/dL (7-18)
[2024-01-10 22:56] LABS: CREATININE 0.5 mg/dL (0.55-1.3)
[2024-01-10 22:58] LABS: BILIRUBIN,TOTAL 0.5 mg/dL (0.2-1); TOT PROT 8.5 g/dl (6.4-8.2)
[2024-01-11 00:34] LABS: BASO % 0.2 % (0-2.0); EOS % 2.4 % (0-4.5); HEMATOCRIT 48.1 % (35.4-49); HEMOGLOBIN 16.3 GM/dL (11.7-16.9); LYMPH % 20.5 % (8-40); MCHC 33.9 g/dl (32.0-35.9); MEAN CELL VOLUME 82.6 fl (80-96); MEAN PLT VOLUME 8.3 fl (7.5-11.1); MONO % 16.1 % (3.8-10.2); NEUT % 60.8 % (42.8-82.8); PLATELET COUNT 212 10^3/uL (134-434); RBC 5.83 M/mm3 (4.00-5.60); RDW 15.5 % (11.9-15.9); WHITE BLOOD COUNT 6.6 K/mm3 (4.0-10.0)
[2024-01-11] MEDS: GENTAMICIN IVPB ONE (02:04)
[2024-01-11] MEDS: WATER IVPB ONE (02:04)
[2024-01-11] MEDS: DEXTROSE 5% IVPB ONE (02:04)
[2024-01-11] MEDS ORDERED: PATIENT'S OWN MEDICATION (NON-FORMULARY) (Midazolam [Nayzilam] 5 MG/0.1 ML Spray) NS PRN (04:12)
[2024-01-11] MEDS ORDERED: cloBAZam 10 MG TABLET ONE ×2 (05:29→17:10)
[2024-01-11] MEDS ORDERED: diazePAM 2 MG TABLET ONE ×2 (05:30→17:10)
[2024-01-11] MEDS ORDERED: lamoTRIgine 25 MG TABLET ONE (05:30)
[2024-01-11] MEDS: SCOPOLAMINE HYDROBROMIDE 1 PATCH PATCH.TD72 TD SCH (05:51)
[2024-01-11] MEDS: diazePAM 2 MG TABLET GT SCH (05:51)
[2024-01-11] MEDS: levETIRAcetam 500 MG/5 ML ORAL SOLUTION (UNIT-DOSE CUPS) GT SCH (05:51)
[2024-01-11] MEDS: cloBAZam 10 MG TABLET GT SCH (05:51)
[2024-01-11] MEDS: lamoTRIgine 100 MG TABLET GT SCH (05:51)
[2024-01-11] MEDS: SODIUM CHLORIDE 1,000 ML IV SCH (06:20)
[2024-01-11] MEDS: VANCOMYCIN/WATER FOR INJ (PEG) 750 MG/150 ML BAG IVPB SCH (10:41)
[2024-01-11] MEDS ORDERED: LOSARTAN POTASSIUM 50 MG TABLET ONE (11:02)
[2024-01-11] MEDS ORDERED: amLODIPine BESYLATE 10 MG TABLET (FP) ONE (11:02)
[2024-01-11] MEDS ORDERED: LORATADINE 10 MG TABLET ONE (11:03)
[2024-01-11] MEDS ORDERED: metoPROLOL SUCCINATE 25 MG TAB.SR.24H (FP) PO ONE (11:03)
[2024-01-11] MEDS: DOCUSATE NA 100 MG/10 ML UNIT-DOSE CUPS GT SCH (11:12)
[2024-01-11] MEDS: METOPROLOL TARTRATE 50 MG TABLET (FP) PEG SCH (11:12)
[2024-01-11] MEDS: BISACODYL 10 MG SUPP.RECT RC SCH (11:13)
[2024-01-11] MEDS: LORATADINE 10 MG TABLET GT SCH (11:24)
[2024-01-11] MEDS: amLODIPine BESYLATE 10 MG TABLET (FP) GT SCH (11:25)
[2024-01-11] MEDS: LOSARTAN POTASSIUM 50 MG TABLET GT SCH (11:25)
[2024-01-11] MEDS ORDERED: PIPERACILLIN/TAZOB 3.375 GM 3.375 GM/50 ML BAG IVPB ONE (17:10)
[2024-01-11] MEDS: PIPERACILLIN/TAZOB 3.375 GM 3.375 GM in DEXTROSE 5%-WATER - 50 ML IVPB SCH (17:28)
[2024-01-11 18:38] VITALS: RESP 18
[2024-01-11] MEDS ORDERED: CLOBAZAM 5 MG SL SCH (22:00)
[2024-01-11] MEDS: FAMOTIDINE 20 MG TABLET PEG SCH (23:01)
[2024-01-11] MEDS: MONTELUKAST NA 10 MG TABLET GT SCH (23:01)
[2024-01-12 08:59] LABS: BASO % 0.1 % (0-2.0); EOS % 0.9 % (0-4.5); HEMATOCRIT 50.8 % (35.4-49); HEMOGLOBIN 17.7 GM/dL (11.7-16.9); LYMPH % 9.8 % (8-40); MCH 28.5 pg (25.7-33.7); MCHC 34.9 g/dl (32.0-35.9); MEAN CELL VOLUME 81.7 fl (80-96); MEAN PLT VOLUME 8.4 fl (7.5-11.1); MONO % 9.3 % (3.8-10.2); NEUT % 79.9 % (42.8-82.8); PLATELET COUNT 207 10^3/uL (134-434); RBC 6.22 M/mm3 (4.00-5.60); RDW 15.4 % (11.9-15.9); WHITE BLOOD COUNT 6.2 K/mm3 (4.0-10.0)
[2024-01-12 09:18] LABS: POTASSIUM 3.6 mmol/L (3.5-5.1)
[2024-01-12 09:25] LABS: CALCIUM 9.6 mg/dL (8.5-10.1)
[2024-01-12 09:26] LABS: ALBUMIN 4.1 g/dl (3.4-5.0); BLOOD UREA NITROGEN 4.8 mg/dL (7-18); MAGNESIUM 1.4 mg/dL (1.8-2.4)
[2024-01-12 09:29] LABS: CREATININE 0.6 mg/dL (0.55-1.3); PHOSPHOROUS 2.8 mg/dL (2.5-4.9)
[2024-01-12 09:30] LABS: BILIRUBIN,TOTAL 0.7 mg/dL (0.2-1); TOT PROT 8.5 g/dl (6.4-8.2)
[2024-01-12] MEDS ORDERED: VANCOMYCIN/WATER FOR INJ (PEG) 750 MG/150 ML BAG IVPB SCH (10:00)
[2024-01-12] MEDS: MAGNESIUM SULF 50% (8.12 MEQ/2 ML-1 GM VIAL) IVPB ONE (13:40)
[2024-01-13 08:46] LABS: HEMATOCRIT 43.8 % (35.4-49); HEMOGLOBIN 15.1 GM/dL (11.7-16.9); MCHC 34.4 g/dl (32.0-35.9); MEAN CELL VOLUME 81.5 fl (80-96); MEAN PLT VOLUME 8.3 fl (7.5-11.1); PLATELET COUNT 193 10^3/uL (134-434); RBC 5.38 M/mm3 (4.00-5.60); RDW 15.4 % (11.9-15.9); WHITE BLOOD COUNT 5.2 K/mm3 (4.0-10.0)
[2024-01-13 09:03] LABS: POTASSIUM 3.9 mmol/L (3.5-5.1)
[2024-01-13 09:06] LABS: CALCIUM 8.8 mg/dL (8.5-10.1)
[2024-01-13 09:07] LABS: BLOOD UREA NITROGEN 8.8 mg/dL (7-18); MAGNESIUM 1.7 mg/dL (1.8-2.4)
[2024-01-13 09:10] LABS: CREATININE 0.5 mg/dL (0.55-1.3); PHOSPHOROUS 3.9 mg/dL (2.5-4.9)
[2024-01-14 08:21] LABS: HEMATOCRIT 42.2 % (35.4-49); HEMOGLOBIN 14.3 GM/dL (11.7-16.9); MCH 28.2 pg (25.7-33.7); MCHC 33.9 g/dl (32.0-35.9); MEAN CELL VOLUME 83.2 fl (80-96); MEAN PLT VOLUME 8.9 fl (7.5-11.1); PLATELET COUNT 180 10^3/uL (134-434); RBC 5.08 M/mm3 (4.00-5.60); WHITE BLOOD COUNT 5.3 K/mm3 (4.0-10.0)
[2024-01-14 08:27] LABS: POTASSIUM 3.7 mmol/L (3.5-5.1)
[2024-01-14 08:30] LABS: CALCIUM 8.7 mg/dL (8.5-10.1)
[2024-01-14 08:31] LABS: BLOOD UREA NITROGEN 9.2 mg/dL (7-18); MAGNESIUM 1.6 mg/dL (1.8-2.4)
[2024-01-14 08:33] LABS: CREATININE 0.5 mg/dL (0.55-1.3); PHOSPHOROUS 3.1 mg/dL (2.5-4.9)
[2024-01-14] MEDS: MAGNESIUM 1GM/D5W - 1 GM/100 ML IVPB IVPB ONE (15:30)
[2024-01-15 09:16] LABS: HEMATOCRIT 39.7 % (35.4-49); HEMOGLOBIN 13.4 GM/dL (11.7-16.9); MCHC 33.8 g/dl (32.0-35.9); MEAN CELL VOLUME 82.9 fl (80-96); MEAN PLT VOLUME 8.1 fl (7.5-11.1); PLATELET COUNT 156 10^3/uL (134-434); RBC 4.79 M/mm3 (4.00-5.60); WHITE BLOOD COUNT 4.5 K/mm3 (4.0-10.0)
[2024-01-15 09:43] LABS: POTASSIUM 3.8 mmol/L (3.5-5.1)
[2024-01-15 09:49] LABS: BLOOD UREA NITROGEN 7.5 mg/dL (7-18); CREATININE 0.4 mg/dL (0.55-1.3)
[2024-01-15 09:50] LABS: MAGNESIUM 1.7 mg/dL (1.8-2.4)
[2024-01-15 09:51] LABS: CALCIUM 8.5 mg/dL (8.5-10.1)
[2024-01-15 09:53] LABS: PHOSPHOROUS 3.1 mg/dL (2.5-4.9)
[2024-01-15] MEDS: MAGNESIUM SULF 50% (8.12 MEQ/2 ML-1 GM VIAL) IVPB ONE (17:12)
[2024-01-16 08:16] VITALS: BP 126/72; PULSE 78; TEMP 97.9
[2024-01-16 09:47] LABS: HEMATOCRIT 41.8 % (35.4-49); HEMOGLOBIN 14.1 GM/dL (11.7-16.9); MCHC 33.6 g/dl (32.0-35.9); MEAN CELL VOLUME 83.2 fl (80-96); MEAN PLT VOLUME 8.5 fl (7.5-11.1); PLATELET COUNT 191 10^3/uL (134-434); RBC 5.02 M/mm3 (4.00-5.60); RDW 14.9 % (11.9-15.9); WHITE BLOOD COUNT 6.6 K/mm3 (4.0-10.0)
[2024-01-16 10:33] LABS: POTASSIUM 3.3 mmol/L (3.5-5.1)
[2024-01-16 10:35] LABS: CALCIUM 8.6 mg/dL (8.5-10.1)
[2024-01-16 10:37] LABS: BLOOD UREA NITROGEN 8.4 mg/dL (7-18); MAGNESIUM 1.8 mg/dL (1.8-2.4)
[2024-01-16 10:40] LABS: BILIRUBIN,TOTAL 0.3 mg/dL (0.2-1); CREATININE 0.5 mg/dL (0.55-1.3)
[2024-01-16 10:51] LABS: ALBUMIN 3.2 g/dl (3.4-5.0)
[2024-01-16] MEDS: POTASSIUM CHLORIDE ORAL LIQUID 20 MEQ/15 ML GT ONE (14:23)
== END 2024-01-16 18:21 | DRG 468 ==
LOC: JER 21:19 → JERBED 01-11 02:29 → OBSVTOIN 01-11 04:39 → J6S 01-11 18:15
PROVIDERS: ADMIT Internal Medicine
DX: R31.9 Hematuria, unspecified (principal); F72 Severe intellectual disabilities; G40.309 Generalized idiopathic epilepsy and epileptic syndromes, not intractable, without status epilepticus; R53.2 Functional quadriplegia; N31.9 Neuromuscular dysfunction of bladder, unspecified; G80.8 Other cerebral palsy; I10 Essential (primary) hypertension
CPT/HCPCS: 36415; 76705-TC; 80048; 80053; 81003; 81015; 83605; 83735; 84100; 85025; 85027; 87086; 87186; 87635; 93005; 93010; 99285-25; G0378

== ENCOUNTER 2024-03-11 09:33 | Inpatient (IN) | payer OTHER ==
[2024-03-11 10:51] LABS: BASO % 0.1 % (0-2.0); EOS % 2.4 % (0-4.5); HEMOGLOBIN 16.6 GM/dL (11.7-16.9); MCHC 33.8 g/dl (32.0-35.9); MEAN CELL VOLUME 82.7 fl (80-96); MEAN PLT VOLUME 8.3 fl (7.5-11.1); MONO % 11.3 % (3.8-10.2); NEUT % 72.2 % (42.8-82.8); PLATELET COUNT 244 10^3/uL (134-434); RBC 5.93 M/mm3 (4.00-5.60); WHITE BLOOD COUNT 5.4 K/mm3 (4.0-10.0)
[2024-03-11 10:58] LABS: INR 1.04 (0.83-1.09); PROTHROMBIN TIME (PATIENT) 11.7 SEC (9.7-13.0)
[2024-03-11 11:00] LABS: ACTIVATED PTT 41.1 SECONDS (25.2-36.5)
[2024-03-11 11:09] LABS: POTASSIUM 5.3 mmol/L (3.5-5.1)
[2024-03-11 11:10] LABS: ALBUMIN 4.1 g/dl (3.4-5.0); CALCIUM 9.6 mg/dL (8.5-10.1)
[2024-03-11 11:11] LABS: BLOOD UREA NITROGEN 4.6 mg/dL (7-18)
[2024-03-11 11:14] LABS: CREATININE 0.5 mg/dL (0.55-1.3)
[2024-03-11 11:15] LABS: BILIRUBIN,TOTAL 0.4 mg/dL (0.2-1); TOT PROT 8.5 g/dl (6.4-8.2)
[2024-03-11] MEDS ORDERED: levETIRAcetam 500 MG/5 ML INJECTION VIAL IVPB ONE (11:20)
[2024-03-11 11:22] LABS: EPI CELLS 11 /uL (0-25.1); HYALINE CASTS 4 /uL (0-3.1); PH,URINE >= 9.0 (5.0-8.0); URINE APPEARANCE CLEAR; URINE BACTERIA 384 /uL (0-1359); URINE BILIRUBIN NEGATIVE (NEGATIVE); URINE COLOR YELLOW; URINE GLUCOSE (UA) NEGATIVE (NEGATIVE); URINE KETONE NEGATIVE (NEGATIVE); URINE LEUK ESTERASE 1+ (NEGATIVE); URINE NITRITE NEGATIVE (NEGATIVE); URINE PROTEIN 3+ (NEGATIVE); URINE UROBILINOGEN 0.2 mg/dL (0.2-1.0); URINE WBC 259 /uL (0-25.8)
[2024-03-11] MEDS: levETIRAcetam 500 MG/5 ML INJECTION VIAL IVPB ONE (11:34)
[2024-03-11] MEDS ORDERED: CEFTRIAXONE 1 GM/50 ML BAG ONE (11:36)
[2024-03-11] MEDS: CEFTRIAXONE 1,000 MG in DEXTROSE 5%-WATER - 50 ML IVPB ONE (12:06)
[2024-03-11] MEDS ORDERED: MAGNESIUM HYDROX 2400MG/30ML ORAL SUSPENSION 30 ML CUP GT PRN (12:32)
[2024-03-11 12:38] LABS: CHLORIDE 99 mmol/L (98-107); SODIUM 121 mmol/L (136-145)
[2024-03-11 12:40] LABS: ANION GAP -6 mmol/L (4-13); BLOOD UREA NITROGEN 3.8 mg/dL (7-18); CALCIUM 8.6 mg/dL (8.5-10.1); CO2 28 mmol/L (21-32); GLUCOSE,RANDOM 66 mg/dL (74-106); POTASSIUM > 10.0 mmol/L (3.5-5.1)
[2024-03-11 12:44] LABS: CREATININE 0.5 mg/dL (0.55-1.3)
[2024-03-11 12:54] LABS: URINE RBC 536 /uL (0-23.9); YEAST NONE SEEN (NEGATIVE)
[2024-03-11] MEDS ORDERED: SCOPOLAMINE HYDROBROMIDE 1 PATCH PATCH.TD72 ONE (13:14)
[2024-03-11] MEDS: TIGECYCLINE 100 MG in DEXTROSE 5%-WATER - 100 ML IVPB ONE (13:36)
[2024-03-11] MEDS: SCOPOLAMINE HYDROBROMIDE 1 PATCH PATCH.TD72 TD SCH (13:36)
[2024-03-11] MEDS: LACTATED RINGERS SOLUTION 1,000 ML/1,000 ML INFUS.BAG IV SCH (13:36)
[2024-03-11] MEDS ORDERED: PIPERACILLIN/TAZOB 4.5 GM 4.5 GM/100 ML BAG IVPB ONE ×2 (14:30→18:31)
[2024-03-11] MEDS: PIPERACILLIN/TAZOB 4.5 GM 4.5 GM in DEXTROSE 5%-WATER 100 ML IVPB SCH (15:19)
[2024-03-11] MEDS ORDERED: diazePAM 2 MG TABLET ONE (15:22)
[2024-03-11] MEDS ORDERED: lamoTRIgine 100 MG TABLET ONE (15:23)
[2024-03-11] MEDS ORDERED: levETIRAcetam 500 MG TABLET (FP) PO ONE (15:23)
[2024-03-11 16:36] LABS: POTASSIUM 3.6 mmol/L (3.5-5.1)
[2024-03-11 16:38] LABS: BLOOD UREA NITROGEN 3.6 mg/dL (7-18)
[2024-03-11 16:41] LABS: CREATININE 0.5 mg/dL (0.55-1.3)
[2024-03-11] MEDS: lamoTRIgine 100 MG TABLET GT SCH (17:51)
[2024-03-11] MEDS: levETIRAcetam 500 MG TABLET (FP) PO SCH (17:51)
[2024-03-11] MEDS: diazePAM 2 MG TABLET GT SCH (17:51)
[2024-03-11] MEDS ORDERED: cloBAZam 10 MG TABLET GT SCH (18:00)
[2024-03-11] MEDS ORDERED: MAGNESIUM HYDROX 2400MG/30ML ORAL SUSPENSION 30 ML CUP ONE (20:17)
[2024-03-11] MEDS ORDERED: SENNOSIDES 8.6MG TABLET (FP) PO ONE (20:17)
[2024-03-11] MEDS ORDERED: FAMOTIDINE 20 MG TABLET ONE (20:17)
[2024-03-11] MEDS ORDERED: cloBAZam 10 MG TABLET ONE (20:17)
[2024-03-11] MEDS ORDERED: HEPARIN NA (PORCINE) 5,000 UNITS/ML 1ML VIAL ONE (20:17)
[2024-03-11] MEDS ORDERED: METOPROLOL TARTRATE 50 MG TABLET (FP) ONE (20:17)
[2024-03-11] MEDS: SENNOSIDES 8.6MG TABLET (FP) PO SCH (21:17)
[2024-03-11] MEDS: MAGNESIUM HYDROX 2400MG/30ML ORAL SUSPENSION 30 ML CUP GT SCH (21:17)
[2024-03-11] MEDS: DOCUSATE NA 100 MG/10 ML UNIT-DOSE CUPS GT SCH (21:17)
[2024-03-11] MEDS: cloBAZam 10 MG TABLET GT SCH (21:17)
[2024-03-11] MEDS: FAMOTIDINE 20 MG TABLET PEG SCH (21:17)
[2024-03-11] MEDS: HEPARIN NA (PORCINE) 5,000 UNITS/ML 1ML VIAL SQ SCH (21:17)
[2024-03-11] MEDS: METOPROLOL TARTRATE 50 MG TABLET (FP) PEG SCH (21:17)
[2024-03-11] MEDS ORDERED: PIPERACILLIN/TAZOB 4.5 GM 4.5 GM in DEXTROSE 5%-WATER 100 ML IVPB SCH (22:00)
[2024-03-11] MEDS ORDERED: CLOBAZAM 5 MG SL SCH (22:00)
[2024-03-11] MEDS ORDERED: PATIENT'S OWN MEDICATION (NON-FORMULARY) (Methylcellulose [Fiber Laxative] 500 MG Tablet) GT SCH (22:00)
[2024-03-12] MEDS ORDERED: PIPERACILLIN/TAZOB 4.5 GM 4.5 GM/100 ML BAG IVPB ONE (01:41)
[2024-03-12] MEDS ORDERED: levETIRAcetam 500 MG/5 ML ORAL SOLUTION (UNIT-DOSE CUPS) PO SCH (05:00)
[2024-03-12] MEDS ORDERED: levETIRAcetam 500 MG/5 ML ORAL SOLUTION (UNIT-DOSE CUPS) GT SCH (05:18)
[2024-03-12] MEDS: levETIRAcetam 500 MG/5 ML ORAL SOLUTION (UNIT-DOSE CUPS) GT SCH (05:31)
[2024-03-12] MEDS ORDERED: POLYETHYLENE GLYCOL (HEALTHYLAX) 3350 17 GM PACKET PO SCH (10:00)
[2024-03-12] MEDS ORDERED: PATIENT'S OWN MEDICATION (NON-FORMULARY) (Linaclotide [Linzess] 290 MCG Capsule) GT SCH (10:00)
[2024-03-12] MEDS: LORATADINE 10 MG TABLET GT SCH (10:50)
[2024-03-12] MEDS: amLODIPine BESYLATE 10 MG TABLET (FP) GT SCH (10:50)
[2024-03-12] MEDS: LACTOBACILLUS ACIDOPHILUS 1 TABLET GT SCH (10:51)
[2024-03-12] MEDS: LOSARTAN POTASSIUM 50 MG TABLET GT SCH (10:53)
[2024-03-12] MEDS: PIPERACILLIN/TAZOB 3.375 GM 3.375 GM in DEXTROSE 5%-WATER - 50 ML IVPB ONE (10:58)
[2024-03-12] MEDS: SENNOSIDES 8.8 MG/5 ML BULK BOTTLE PO SCH (21:16)
[2024-03-13] MEDS: POLYETHYLENE GLYCOL (HEALTHYLAX) 3350 17 GM PACKET GT SCH (10:44)
[2024-03-13 11:25] LABS: BASO % 0.3 % (0-2.0); EOS % 3.9 % (0-4.5); HEMATOCRIT 47.6 % (35.4-49); HEMOGLOBIN 15.7 GM/dL (11.7-16.9); LYMPH % 16.5 % (8-40); MCH 27.8 pg (25.7-33.7); MCHC 33.1 g/dl (32.0-35.9); MEAN PLT VOLUME 8.4 fl (7.5-11.1); MONO % 14.3 % (3.8-10.2); PLATELET COUNT 196 10^3/uL (134-434); RBC 5.67 M/mm3 (4.00-5.60); WHITE BLOOD COUNT 6.6 K/mm3 (4.0-10.0)
[2024-03-13 11:46] LABS: POTASSIUM 4.2 mmol/L (3.5-5.1)
[2024-03-13 11:57] LABS: BLOOD UREA NITROGEN 8.3 mg/dL (7-18); CALCIUM 9.5 mg/dL (8.5-10.1)
[2024-03-13 12:02] LABS: CREATININE 0.5 mg/dL (0.55-1.3)
[2024-03-13] MEDS: PIPERACILLIN/TAZOB 3.375 GM 3.375 GM in DEXTROSE 5%-WATER - 50 ML IVPB SCH (19:56)
[2024-03-15 12:01] VITALS: BP 148/94; PULSE 61; RESP 17; TEMP 97.7
[2024-03-15 14:06] VITALS: BMI 23.8
== END 2024-03-15 12:29 | DRG 53 ==
LOC: JER 09:33 → INTOOBSV 12:31 → UNDOADMOB 12:31 → JERBED 12:31 → OBSVTOIN 12:31 → JERBED 12:58 → J6S 03-12 03:32 → JERBED 03-12 03:32 → OBSVTOIN 03-13 14:25 → J6S 03-13 16:45
PROVIDERS: ADMIT Internal Medicine; ATTEND Internal Medicine
DX: G40.909 Epilepsy, unspecified, not intractable, without status epilepticus (principal); G80.9 Cerebral palsy, unspecified; N31.9 Neuromuscular dysfunction of bladder, unspecified; I10 Essential (primary) hypertension; K59.00 Constipation, unspecified; G91.1 Obstructive hydrocephalus; F73 Profound intellectual disabilities; K63.89 Other specified diseases of intestine; N39.0 Urinary tract infection, site not specified; B95.2 Enterococcus as the cause of diseases classified elsewhere; B96.5 Pseudomonas (aeruginosa) (mallei) (pseudomallei) as the cause of diseases classified elsewhere; Z93.59 Other cystostomy status
CPT/HCPCS: 0241U-QW; 36415; 70450-TC; 71045-TC-FY; 80048; 80053; 80177; 81003; 83605; 85025; 85610; 85730; 87086; 87186; 87635; 93005; 93010; 99285-25; G0378; J1644; J3243